=== PATIENT | female | born 1965 | race Hispanic/Latino ===

== ENCOUNTER 2020-03-05 09:25 | Inpatient (IN) | payer MEDICARE ==
[2020-03-05] MEDS ORDERED: SODIUM CHLORIDE 0.9% 1000 ML IV SOLN IV ONE ×2 (10:32→17:02)
[2020-03-05] MEDS ORDERED: NORepinephrine/NS 4 MG-250 ML 4 MG/250 ML BAG IV ONE (10:52)
[2020-03-05] MEDS ORDERED: ETOMIDATE 20 MG/10 ML INJ IV ONE ×2 (10:58→11:23)
[2020-03-05] MEDS ORDERED: ROCURONIUM 50 MG/5 ML INJ IV ONE (10:58)
[2020-03-05] MEDS ORDERED: SUCCINYLCHOLINE CHLORIDE 200 MG/10 ML INJ MDV IV ONE (11:23)
[2020-03-05 11:32] LABS: Mean Corpuscular HGB Conc 29 % (30-34); Mean Corpuscular Volume 103 fl (79-97); Platelet Count 388 K/mm3 (140-440); Red Blood Count 2.48 M/mm3 (3.65-5.03); Red Cell Distribution Width 18.8 % (13.2-15.2)
[2020-03-05 11:43] LABS: Hematocrit 25.4 % (30.3-42.9); Hemoglobin 7.4 gm/dl (10.1-14.3)
--- NOTE | 2020-03-05 11:49 | XRay Report ---
CHEST 1 VIEW INDICATION / CLINICAL INFORMATION: cough, covid positive. COMPARISON: 02/26/2020 FINDINGS: SUPPORT DEVICES: Tip of endotracheal tube is positioned approximately 3 cm above the machelle. Central venous line is been removed. HEART / MEDIASTINUM: No significant abnormality. LUNGS / PLEURA: There has been near complete resolution of bilateral pulmonary opacities since the pr ior study.. No pneumothorax. ADDITIONAL FINDINGS: No significant additional findings. IMPRESSION: 1. Near complete resolution of bilateral pulmonary opacities in the interval. Signer Name: Shaun Najera MD Signed: 03/05/2020 11:45 AM Workstation Name: [id number]
[2020-03-05 11:54] LABS: Alanine Aminotransferase 17 units/L (7-56); Albumin 1.8 g/dL (3.9-5); BUN/Creatinine Ratio 20; Blood Urea Nitrogen 32 mg/dL (7-17); C-Reactive Protein 2.8 mg/dL (0.00-1.30); Calcium 7.1 mg/dL (8.4-10.2); Hemolysis Index 4
[2020-03-05] MEDS: AZITHROMYCIN 500 MG in SODIUM CHLORIDE 0.9% 250ML 250 ML IV SCH (11:54)
[2020-03-05] MEDS ORDERED: SODIUM CHLORIDE 0.9% 1000 ML 1,000 ML IV ONE (12:09)
--- NOTE | 2020-03-05 12:17 | History and Physical Report ---
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 Pt is nonverbal and unable to provide history. Patient history taken from EMS staff, ED staff, and assisted facility staff. As per staff the patient was found to be ill-appearing this morning, and was breathing fast. EMS was notified and upon arrival the patient was found to be in distress and subsequently transported to [facility] for further care and evaluation of the aforementioned symptoms. Patient seen and evaluated in the emergency department. Lab and imaging studies reviewed. Patient found to have sepsis complicated by septic shock, acute hypoxemic respiratory failure, metabolic acidosis, metabolic encephalopathy, acute kidney injury, and hyponatremia. Patient initiated on sepsis protocol and admitted to ICU due to increased risk for decompensation. Critical care team consult placed in the emergency department. No further history is obtainable. Prior admission on 02/26/2020 reviewed. All medication listed at time of admission has been reconciled. Advanced care planning conducted in the emergency department. Past History Past Medical History: diabetes, hypertension, hyperlipidemia, other (See HPI) Past Surgical History: No surgical history, Other (Reviewed) Social history: single. denies: smoking, alcohol abuse, prescription drug abuse Family history: hypertension Medications and Allergies Allergies Allergy/AdvReac Type Severity Reaction Status Date / Time No Known Allergies Allergy Verified 02/26/20 10:24 Home Medications Medication Instructions Recorded Confirmed Last Taken Type Citalopram [Celexa] 20 mg PO QDAY 01/25/20 02/27/20 Unknown History Pravastatin [Pravachol] 40 mg PO QHS 01/25/20 02/27/20 Unknown History Acetaminophen [Mapap] 650 mg PO BID PRN 02/26/20 02/27/20 Unknown History Ascorbic Acid [Vitamin C with Chetna 500 mg PO DAILY 02/26/20 02/27/20 Unknown History Hips] Glimepiride [Amaryl] 4 mg PO QAM 02/26/20 02/27/20 Unknown History Insulin Lispro [Humalog] 5 units SQ AC 02/26/20 02/27/20 Unknown History Multivit-Min/Ferrous Fumarate 15 mg PO DAILY 02/26/20 02/27/20 Unknown History [Multivitamin with Minerals Tab] Apixaban [Eliquis] 2.5 mg PO BID #30 tablet 03/01/20 Unknown Rx Insulin Glargine [Lantus VIAL] 15 units SUB-Q BID #100 units 03/01/20 Unknown Rx levoFLOXacin [Levaquin TAB] 500 mg PO QDAY #3 tablet 03/01/20 Unknown Rx Active Meds: Active Medications Dextrose (D50w (25gm) Syringe) 0 ml IV Q30MIN PRN; Protocol PRN Reason: Hypoglycemia Ceftriaxone Sodium (Rocephin/Ns 2 Gm/100 Ml) 2 gm in 100 mls @ 200 mls/hr IV Q24HR SHAHLA; Protocol Azithromycin 500 mg/ Sodium (Chloride) 250 mls @ 250 mls/hr IV Q24HR SHAHLA; Protocol Last Admin: 03/05/20 11:54 Dose: 250 mls/hr Documented by: Norepinephrine (Levophed Drip 4 Mg/Ns 250 Ml) 4 mg in 250 mls @ 7.5 mls/hr IV TITR SHAHLA; Protocol Insulin Human Regular 100 (units/ Sodium Chloride) 100 mls @ 1 mls/hr IV TITR SHAHLA; Protocol Sodium Chloride (Nacl 0.9% 1000 Ml) 1,000 mls @ 999 mls/hr IV BOLUS ONE Stop: 03/05/20 13:09 Review of Systems ROS unobtainable: due to endotracheal tube, due to mental status Exam - Constitutional Vitals: Temp Pulse Resp BP Pulse Ox 97.7 F 106 H 19 56/28 100 03/05/20 09:35 03/05/20 11:51 03/05/20 11:51 03/05/20 11:51 03/05/20 11:51 General appearance: Present: severe distress - EENT Eyes: Present: miosis ENT: hearing decreased - Neck Neck: Present: supple, normal ROM - Respiratory Respiratory effort: labored Respiratory: bilateral: diminished - Cardiovascular Heart Sounds: Present: S1 & S2. Absent: rub, click - Extremities Extremities: pulses symmetrical, No edema Peripheral Pulses: abnormal (Capillary refill greater than 3.5 seconds) - Abdominal General gastrointestinal: Present: soft, non-tender, non-distended, normal bowel sounds Female genitourinary: Present: normal - Integumentary Integumentary: Present: clear, dry, clammy, decreased turgor - Musculoskeletal Musculoskeletal: generalized weakness - Psychiatric Psychiatric: no appropriate mood/affect, no intact judgment & insight, no memory intact - Neurologic Neurologic: no CNII-XII intact, no gait normal Results - Labs CBC & Chem 7: 03/05/20 11:20 03/05/20 15:43 Labs: Abnormal lab results 03/05/20 03/05/20 03/05/20 Range/Units 11:20 11:20 11:20 WBC 19.4 H (4.5-11.0) K/mm3 RBC 2.48 L (3.65-5.03) M/mm3 Hgb 7.4 L (10.1-14.3) gm/dl Hct 25.4 L (30.3-42.9) % MCV 103 H (79-97) fl MCHC 29 L (30-34) % RDW 18.8 H (13.2-15.2) % D-Dimer (0-234) ng/mlDDU Sodium 133 L D (137-145) mmol/L Chloride 91.0 L (98-107) mmol/L Carbon Dioxide 3 L* D (22-30) mmol/L BUN 32 H (7-17) mg/dL Creatinine 1.6 H D (0.6-1.2) mg/dL Glucose 1011 H* (65-100) mg/dL Lactic Acid 7.60 H* (0.7-2.0) mmol/L Calcium 7.1 L (8.4-10.2) mg/dL Ferritin (10.0-200.0) ng/mL Alkaline Phosphatase 142 H (35-129) units/L Lactate Dehydrogenase (91-180) units/L C-Reactive Protein (0.00-1.30) mg/dL Total Protein 4.1 L (6.3-8.2) g/dL Albumin 1.8 L (3.9-5) g/dL 03/05/20 03/05/20 03/05/20 Range/Units :07 06: 11:20 WBC (4.5-11.0) K/mm3 RBC (3.65-5.03) M/mm3 Hgb (10.1-14.3) gm/dl Hct (30.3-42.9) % MCV (79-97) fl MCHC (30-34) % RDW (13.2-15.2) % D-Dimer 1015.54 H (0-234) ng/mlDDU Sodium (137-145) mmol/L Chloride (98-107) mmol/L Carbon Dioxide (22-30) mmol/L BUN (7-17) mg/dL Creatinine (0.6-1.2) mg/dL Glucose 1013 H* (65-100) mg/dL Lactic Acid (0.7-2.0) mmol/L Calcium (8.4-10.2) mg/dL Ferritin 1335.0 H (10.0-200.0) ng/mL Alkaline Phosphatase (35-129) units/L Lactate Dehydrogenase 351 H (91-180) units/L C-Reactive Protein 2.80 H (0.00-1.30) mg/dL Total Protein (6.3-8.2) g/dL Albumin (3.9-5) g/dL Assessment and Plan - Patient Problems (1) Sepsis Current Visit: Yes Status: Acute Qualifiers: Sepsis type: sepsis due to unspecified organism Sepsis acute organ dysfunction status: with acute organ dysfunction Severe sepsis acute organ dysfunction type: acute renal failure Acute renal failure type: unspecified Severe sepsis shock status: with septic shock Qualified Code(s): A41.9 - Sepsis, unspecified organism; R65.21 - Severe sepsis with septic shock; N17.9 - Acute kidney failure, unspecified Plan to address problem: Sepsis protocol: CBC, CMP, chest x-ray, urinalysis, IV antibiotic therapy, IV fluid resuscitation therapy, IV pressor support, monitor urine output every shift, maintain mean arterial blood pressure greater than or equal to 65, serial lactic acid level, blood culture. The high probability of a clinically significant, sudden or life threatening deterioration of the [neuro, respiratory, renal, pulmonary] system(s) required my full and direct attention, intervention and personal management. The aggregate critical care time was [65] minutes. This time is in addition to time spent performing reported procedures but includes the following: [x] Data Review and interpretation [x] Patient assessment and monitoring of vital signs [x] Documentation [x] Medication orders and management (2) Acute hypoxemic respiratory failure Current Visit: Yes Status: Acute Plan to address problem: Patient intubated and on ventilatory support. Critical care team consulted, wean vent as tolerated, daily spontaneous breathing trial, sedation holiday, ABG as per protocol. (3) Acute kidney injury (RACH) with acute tubular necrosis (ATN) Current Visit: Yes Status: Acute Plan to address problem: BMP, IV fluid resuscitation therapy, repeat BMP in a.m., monitor serum creatinine. Monitor urine output every shift, avoid nephrotoxic agents. (4) Hyponatremia syndrome Current Visit: Yes Status: Acute Plan to address problem: IV fluid resuscitation therapy, BMP, repeat BMP in a.m. To monitor serum sodium. (5) Metabolic encephalopathy Current Visit: Yes Status: Acute Plan to address problem: Supportive care, neuro check, aspiration precautions, treat sepsis. (6) Metabolic acidosis Current Visit: No Status: Acute Plan to address problem: IV fluid resuscitation therapy, IV bicarbonate therapy, serial lactic acid level. (7) DVT prophylaxis Current Visit: Yes Status: Acute Plan to address problem: SCD to bilateral lower extremities while in bed, prophylactic heparin (8) Advance care planning Current Visit: No Status: Acute Plan to address problem: Patient is full code, patient prognosis discussed. +30 minutes.
--- NOTE | 2020-03-05 12:24 | Emergency Department Report ---
ED General Adult HPI - General Chief complaint: Dyspnea/Respdistress Stated complaint: HYPERGLYCEMIA PUI?: Yes Time Seen by Provider: 03/05/20 10:32 Source: EMS Mode of arrival: Stretcher Limitations: Altered Mental Status, Physical Limitation - History of Present Illness Initial comments: Patient is a 54-year-old female with a past medical history of diabetes and recent diagnosis of COVID-19 and aspiration pneumonia with sepsis who is presenting from [facility] unresponsive with agonal breathing. Details of when the patient became altered is unknown at this time. Patient released from our hospital 4 days ago. Patient had improvement of her DKA and was on antibiotics. No further history is known at this time. - Related Data Home Medications Medication Instructions Recorded Confirmed Last Taken Citalopram [Celexa] 20 mg PO QDAY 01/25/20 02/27/20 Unknown Pravastatin [Pravachol] 40 mg PO QHS 01/25/20 02/27/20 Unknown Acetaminophen [Mapap] 650 mg PO BID PRN 02/26/20 02/27/20 Unknown Ascorbic Acid [Vitamin C with Chetna 500 mg PO DAILY 02/26/20 02/27/20 Unknown Hips] Glimepiride [Amaryl] 4 mg PO QAM 02/26/20 02/27/20 Unknown Insulin Lispro [Humalog] 5 units SQ AC 02/26/20 02/27/20 Unknown Multivit-Min/Ferrous Fumarate 15 mg PO DAILY 02/26/20 02/27/20 Unknown [Multivitamin with Minerals Tab] Previous Rx's Medication Instructions Recorded Last Taken Type Apixaban [Eliquis] 2.5 mg PO BID #30 tablet 03/01/20 Unknown Rx Insulin Glargine [Lantus VIAL] 15 units SUB-Q BID #100 units 03/01/20 Unknown Rx levoFLOXacin [Levaquin TAB] 500 mg PO QDAY #3 tablet 03/01/20 Unknown Rx Allergies Allergy/AdvReac Type Severity Reaction Status Date / Time No Known Allergies Allergy Verified 02/26/20 10:24 ED Review of Systems ROS: Stated complaint: HYPERGLYCEMIA Other details as noted in HPI Comment: All other systems reviewed and negative ED Past Medical Hx - Past Medical History Previous Medical History?: Yes Hx Diabetes: Yes Hx Psychiatric Treatment: (anxiety) Hx Dementia: Yes Additional medical history: COVID +, history of Falling - Social History Smoking Status: Unknown if ever smoked - Medications Home Medications: Home Medications Medication Instructions Recorded Confirmed Last Taken Type Citalopram [Celexa] 20 mg PO QDAY 01/25/20 02/27/20 Unknown History Pravastatin [Pravachol] 40 mg PO QHS 01/25/20 02/27/20 Unknown History Acetaminophen [Mapap] 650 mg PO BID PRN 02/26/20 02/27/20 Unknown History Ascorbic Acid [Vitamin C with Chetna 500 mg PO DAILY 02/26/20 02/27/20 Unknown History Hips] Glimepiride [Amaryl] 4 mg PO QAM 02/26/20 02/27/20 Unknown History Insulin Lispro [Humalog] 5 units SQ AC 02/26/20 02/27/20 Unknown History Multivit-Min/Ferrous Fumarate 15 mg PO DAILY 02/26/20 02/27/20 Unknown History [Multivitamin with Minerals Tab] Apixaban [Eliquis] 2.5 mg PO BID #30 tablet 03/01/20 Unknown Rx Insulin Glargine [Lantus VIAL] 15 units SUB-Q BID #100 units 03/01/20 Unknown Rx levoFLOXacin [Levaquin TAB] 500 mg PO QDAY #3 tablet 03/01/20 Unknown Rx ED Physical Exam - General Limitations: Altered Mental Status, Physical Limitation General appearance: lethargic, other (Patient with agonal breathing with no gag reflex. Patient unresponsive to painful stimuli.) - Head Head exam: Present: atraumatic - Eye Eye exam: Present: other (dry cornea) - ENT ENT exam: Present: mucous membranes dry - Neck Neck exam: Present: normal inspection - Respiratory Respiratory exam: Present: normal lung sounds bilaterally, respiratory distress (agonal but clear breath sounds), accessory muscle use. Absent: wheezes, rales, rhonchi - Cardiovascular Cardiovascular Exam: Present: tachycardia - GI/Abdominal GI/Abdominal exam: Present: soft, distended. Absent: tenderness, guarding, rebound - Neurological Exam Neurological exam: Present: altered ED Course Vital Signs 03/05/20 03/05/20 03/05/20 09:32 09:35 09:46 Temperature 97.7 F Pulse Rate 118 H 118 H 118 H Respiratory 22 25 H 24 Rate Blood Pressure 79/33 O2 Sat by Pulse 100 100 99 Oximetry 0803/05/20 03/05/20 10:00 10:15 10:30 Temperature Pulse Rate 116 H 114 H 114 H Respiratory 23 23 20 Rate Blood Pressure 65/32 69/39 69/39 O2 Sat by Pulse 99 100 Oximetry 03/05/20 03/05/20 11:47 11:51 Temperature Pulse Rate 106 H Respiratory 24 19 Rate Blood Pressure 56/28 O2 Sat by Pulse 100 Oximetry - Intubation Time Out Performed: No Sedative: Etomidate Mg Given: 10 Paralytic: Succinylcholine Mg Given: 100 Laryngoscope: fiberoptic video scope Size: 3 Tube Secured Depth (cm): 22 Tube Secured Location: lips Tube Placement Confirmation: visualized tube passing t, equal breath sounds bilat, no breath sounds over epi, confirmation by capnometr Patient Tolerated Procedure: well Intubation Complications: none - IO Right Tibia Consent Obtained: emergent situation Time Out Performed: Yes IO Instrument Used to Penetrate the Cortex: battery powered IO drill Patient Tolerated Procedure: no complications Complications: none Left Tibia Consent Obtained: emergent situation Time Out Performed: Yes IO Instrument Used to Penetrate the Cortex: battery powered IO drill Patient Tolerated Procedure: well Complications: none ED Medical Decision Making - Lab Data Result diagrams: 03/05/20 11:20 03/05/20 11:20 Lab Results 03/05/20 03/05/20 03/05/20 Range/Units 11:20 11:20 11:20 WBC 19.4 H (4.5-11.0) K/mm3 RBC 2.48 L (3.65-5.03) M/mm3 Hgb 7.4 L (10.1-14.3) gm/dl Hct 25.4 L (30.3-42.9) % MCV 103 H (79-97) fl MCH 30 (28-32) pg MCHC 29 L (30-34) % RDW 18.8 H (13.2-15.2) % Plt Count 388 (140-440) K/mm3 D-Dimer (0-234) ng/mlDDU Sodium 133 L D (137-145) mmol/L Potassium 4.4 D (3.6-5.0) mmol/L Chloride 91.0 L (98-107) mmol/L Carbon Dioxide 3 L* D (22-30) mmol/L Anion Gap 43 mmol/L BUN 32 H (7-17) mg/dL Creatinine 1.6 H D (0.6-1.2) mg/dL Estimated GFR 34 ml/min BUN/Creatinine Ratio 20 % Glucose 1011 H* (65-100) mg/dL Lactic Acid 7.60 H* (0.7-2.0) mmol/L Calcium 7.1 L (8.4-10.2) mg/dL Ferritin (10.0-200.0) ng/mL Total Bilirubin < 0.20 (0.1-1.2) mg/dL AST 18 (5-40) units/L ALT 17 (7-56) units/L Alkaline Phosphatase 142 H (35-129) units/L Lactate Dehydrogenase (91-180) units/L C-Reactive Protein (0.00-1.30) mg/dL Total Protein 4.1 L (6.3-8.2) g/dL Albumin 1.8 L (3.9-5) g/dL Albumin/Globulin Ratio 0.8 % 03/05/20 03/05/20 03/05/20 Range/Units 11:20 11:20 11:20 WBC (4.5-11.0) K/mm3 RBC (3.65-5.03) M/mm3 Hgb (10.1-14.3) gm/dl Hct (30.3-42.9) % MCV (79-97) fl MCH (28-32) pg MCHC (30-34) % RDW (13.2-15.2) % Plt Count (140-440) K/mm3 D-Dimer 1015.54 H (0-234) ng/mlDDU Sodium (137-145) mmol/L Potassium (3.6-5.0) mmol/L Chloride (98-107) mmol/L Carbon Dioxide (22-30) mmol/L Anion Gap mmol/L BUN (7-17) mg/dL Creatinine (0.6-1.2) mg/dL Estimated GFR ml/min BUN/Creatinine Ratio % Glucose 1013 H* (65-100) mg/dL Lactic Acid (0.7-2.0) mmol/L Calcium (8.4-10.2) mg/dL Ferritin 1335.0 H (10.0-200.0) ng/mL Total Bilirubin (0.1-1.2) mg/dL AST (5-40) units/L ALT (7-56) units/L Alkaline Phosphatase (35-129) units/L Lactate Dehydrogenase 351 H (91-180) units/L C-Reactive Protein 2.80 H (0.00-1.30) mg/dL Total Protein (6.3-8.2) g/dL Albumin (3.9-5) g/dL Albumin/Globulin Ratio % - Radiology Data Ordering Physician: DELPHINE AHMADI MD Date of Service: 03/05/20 Procedure(s): XR chest 1V ap Accession Number(s): [id number] cc: DELPHINE AHMADI MD Fluoro Time In Minutes: CHEST 1 VIEW INDICATION / CLINICAL INFORMATION: cough, covid positive. COMPARISON: 02/26/2020 FINDINGS: SUPPORT DEVICES: Tip of endotracheal tube is positioned approximately 3 cm above the machelle. Central venous line is been removed. HEART / MEDIASTINUM: No significant abnormality. LUNGS / PLEURA: There has been near complete resolution of bilateral pulmonary opacities since the prior study.. No pneumothorax. ADDITIONAL FINDINGS: No significant additional findings. IMPRESSION: 1. Near complete resolution of bilateral pulmonary opacities in the interval. Signer Name: Shaun Najera MD Signed: 03/05/2020 11:45 AM Workstation Name: [email or web address] - Medical Decision Making Patient is a 54-year-old female with who is presenting in some respiratory distress with agonal breathing. Blood pressure was 50 systolic on her arrival. Upon being notified that the patient was in her room after 1hour was able to see the patient start IV fluids and initiate a sepsis protocol. Was unable to start an IJ secondary to the patient being dehydrated and having fl attening of her vein. Because of the severe hypotension decided to place bilateral IO's in her tibia so that IV fluids could be instilled in 1 and Levophed and the other. Blood pressure starting to improve. Patient was intubated by me please see procedure note. Patient intubated to protect her a irway as she had no gag reflex. Patient to be started on insulin drip and DKA protocol was initiated. Patient given Rocephin and azithromycin. Sepsis protocol patient was given IV fluid hydration. Patient be admitted to the ICU by her hospitalist. Critical Care Time: Yes (30) Critical care attestation.: If time is entered above; I have spent that time in minutes in the direct care of this critically ill patient, excluding procedure time. ED Disposition Clinical Impression: Metabolic encephalopathy, Leukocytosis DKA (diabetic ketoacidoses) Qualifiers: Diabetes mellitus type: type 1 Diabetes mellitus complication detail: with coma Qualified Code(s): E10.11 - Type 1 diabetes mellitus with ketoacidosis with coma Sepsis Qualifiers: Sepsis type: sepsis due to unspecified organism Sepsis acute organ dysfunction status: with acute organ dysfunction Severe sepsis acute organ dysfunction type: acute renal failure Acute renal failure type: unspecified Severe sepsis shock status: with septic shock Qualified Code(s): A41.9 - Sepsis, unspecified organism; R65.21 - Severe sepsis with septic shock; N17.9 - Acute kidney fa ilure, unspecified Disposition: 09 OP ADMIT IP TO THIS HOSP Is pt being admited?: Yes Does the pt Need Aspirin: No Condition: Stable Instructions: Diabetic Ketoacidosis (ED) Time of Disposition: 12:33
[2020-03-05] MEDS: NORepinephrine/NS 4 MG-250 ML 4 MG/250 ML BAG IV SCH ×5 (12:50→22:59)
[2020-03-05 12:53] LABS: Anisocytosis 1+; Basophils % (Manual) 0 % (0.0-1.8); Eosinophils % (Manual) 0 % (0.0-4.3); Macrocytosis Few; Platelet Estimate Consistent w Auto; Total Cells Counted 100
[2020-03-05] MEDS: INSULIN REGULAR, HUMAN 100 UNITS in SODIUM CHLORIDE 0.9% 99 ML IV SCH (13:16)
[2020-03-05 13:33] LABS: ABG PCO2 12.8 mm Hg; ABG PH 7.039 pH Units (7.350-7.450)
[2020-03-05 13:34] LABS: ABG Base Excess -25.2 mmol/L (-2.0-3.0); ABG HCO3 3.4 mmol/L (20.0-26.0); ABG PO2 330.9 mm Hg (80.0-90.0)
--- NOTE | 2020-03-05 13:53 | Consultation ---
History of Present Illness Consult date: 03/05/20 Requesting physician: GUILHERME JONES Reason for consult: other (Acute Hypoxemic Respiratory Failure; Severe Sepsis with Shock) History of present illness: PCCM CONSULT NOTE (Full dictation # ) Please see dictated notes for full details Medications and Allergies Allergies Allergy/AdvReac Type Severity Reaction Status Date / Time No Known Allergies Allergy Verified 02/26/20 10:24 Home Medications Medication Instructions Recorded Confirmed Last Taken Type Citalopram [Celexa] 20 mg PO QDAY 01/25/20 02/27/20 Unknown History Pravastatin [Pravachol] 40 mg PO QHS 01/25/20 02/27/20 Unknown History Acetaminophen [Mapap] 650 mg PO BID PRN 02/26/20 02/27/20 Unknown History Ascorbic Acid [Vitamin C with Chetna 500 mg PO DAILY 02/26/20 02/27/20 Unknown History Hips] Glimepiride [Amaryl] 4 mg PO QAM 02/26/20 02/27/20 Unknown History Insulin Lispro [Humalog] 5 units SQ AC 02/26/20 02/27/20 Unknown History Multivit-Min/Ferrous Fumarate 15 mg PO DAILY 02/26/20 02/27/20 Unknown History [Multivitamin with Minerals Tab] Apixaban [Eliquis] 2.5 mg PO BID #30 tablet 03/01/20 Unknown Rx Insulin Glargine [Lantus VIAL] 15 units SUB-Q BID #100 units 03/01/20 Unknown Rx levoFLOXacin [Levaquin TAB] 500 mg PO QDAY #3 tablet 03/01/20 Unknown Rx Active Meds: Active Medications Dextrose (D50w (25gm) Syringe) 0 ml IV Q30MIN PRN; Protocol PRN Reason: Hypoglycemia Ceftriaxone Sodium (Rocephin/Ns 2 Gm/100 Ml) 2 gm in 100 mls @ 200 mls/hr IV Q24HR SHAHLA; Protocol Azithromycin 500 mg/ Sodium (Chloride) 250 mls @ 250 mls/hr IV Q24HR SHAHLA; Protocol Last Infusion: 03/05/20 13:26 Dose: Infused Documented by: Norepinephrine (Levophed Drip 4 Mg/Ns 250 Ml) 4 mg in 250 mls @ 7.5 mls/hr IV TITR SHAHLA; Protocol Last Titration: 03/05/20 13:40 Dose: 10 mcg/min, 37.5 mls/hr Documented by: Insulin Human Regular 100 (units/ Sodium Chloride) 100 mls @ 1 mls/hr IV TITR SHAHLA; Protocol Last Admin: 03/05/20 13:16 Dose: 8 units/hr, 8 mls/hr Documented by: Sodium Chloride (Sodium Chloride Flush Syringe 10 Ml) 10 ml IV BID SHAHLA Sodium Chloride (Sodium Chloride Flush Syringe 10 Ml) 10 ml IV PRN PRN PRN Reason: LINE FLUSH Physical Examination Vital signs: Vital Signs Pulse Resp Pulse Ox 118 H 22 100 03/05/20 09:32 03/05/20 09:32 03/05/20 09:32 Results - Laboratory Findings CBC and BMP: 03/05/20 11:20 03/05/20 11:20 ABG ABG pH 7.039 pH Units (7.350-7.450) L* 03/05/20 11:20 ABG pCO2 12.8 mm Hg 03/05/20 11:20 ABG pO2 330.9 mm Hg (80.0-90.0) H 03/05/20 11:20 PT/INR, D-dimer D-Dimer 1015.54 ng/mlDDU (0-234) H 03/05/20 11:20 Abnormal lab findings: Abnormal Labs 03/05/20 03/05/20 03/05/20 11:20 11:20 11:20 WBC 19.4 H RBC 2.48 L Hgb 7.4 L Hct 25.4 L MCV 103 H MCHC 29 L RDW 18.8 H Seg Neuts % (Manual) 95.0 H Lymphocytes % (Manual) 2.0 L Seg Neutrophils # Man 18.4 H Lymphocytes # (Manual) 0.4 L D-Dimer ABG pH ABG pO2 ABG HCO3 ABG Base Excess ABG Hemoglobin Sodium 133 L D Chloride 91.0 L Carbon Dioxide 3 L* D BUN 32 H Creatinine 1.6 H D Glucose 1011 H* Lactic Acid 7.60 H* Calcium 7.1 L Ferritin Alkaline Phosphatase 142 H Lactate Dehydrogenase C-Reactive Protein Total Protein 4.1 L Albumin 1.8 L 03/05/20 03/05/20 03/05/20 11:20 11:20 11:20 WBC RBC Hgb Hct MCV MCHC RDW Seg Neuts % (Manual) Lymphocytes % (Manual) Seg Neutrophils # Man Lymphocytes # (Manual) D-Dimer 1015.54 H ABG pH ABG pO2 ABG HCO3 ABG Base Excess ABG Hemoglobin Sodium Chloride Carbon Dioxide BUN Creatinine Glucose 1013 H* Lactic Acid Calcium Ferritin 1335.0 H Alkaline Phosphatase Lactate Dehydrogenase 351 H C-Reactive Protein 2.80 H Total Protein Albumin 03/05/20 11:20 WBC RBC Hgb Hct MCV MCHC RDW Seg Neuts % (Manual) Lymphocytes % (Manual) Seg Neutrophils # Man Lymphocytes # (Manual) D-Dimer ABG pH 7.039 L* ABG pO2 330.9 H ABG HCO3 3.4 L ABG Base Excess -25.2 L ABG Hemoglobin 9.0 L Sodium Chloride Carbon Dioxide BUN Creatinine Glucose Lactic Acid Calcium Ferritin Alkaline Phosphatase Lactate Dehydrogenase C-Reactive Protein Total Protein Albumin
[2020-03-05] MEDS ORDERED: cefTRIAXone/NS 2 GM/100 ML 2 GM/100 ML BAG IV ONE (13:58)
[2020-03-05] MEDS ORDERED: SODIUM CHLORIDE 0.9% 1000 ML 2,000 ML ONE (14:07)
[2020-03-05] MEDS: cefTRIAXone/NS 2 GM/100 ML 2 GM/100 ML BAG IV SCH (14:44)
--- NOTE | 2020-03-05 15:07 | XRay Report ---
CHEST 1 VIEW INDICATION / CLINICAL INFORMATION: Dyspnea FINDINGS: SUPPORT DEVICES: The endotracheal tube terminates about 4 cm above the machelle. The right IJ central v enous line terminates at the mid SVC level.. HEART / MEDIASTINUM: No significant abnormality. LUNGS / PLEURA: No significant pulmonary or pleural abnormality. No pneumothorax. ADDITIONAL FINDINGS: No significant additional findings. Impression: No pneumothorax or acute abnormality. Signer Name: Jaylen Burrell MD Signed: 03/05/2020 3:02 PM Workstation Name: [id number]
--- NOTE | 2020-03-05 16:02 | Procedure Note ---
Date of procedure: 03/05/20 Pre-op diagnosis: Sepsis Post-op diagnosis: same Procedure: Right internal jugular vein triple venous catheter under ultrasound guidance The patient was prepped and draped in the usual sterile fashion. A timeout was taken to verify the correct patient, procedure, and operative site. Ultrasound was used to localize the right internal jugular vein without difficulty. The Seldinger technique was utilized to access the right internal jugular vein under ultrasound guidance. Local anesthesia was obtained with lidocaine 1%. Under ultrasound, a seeker needle was utilized to access the right internal jugular vein. A guidewire was then advanced through the seeker needle into the right internal jugular vein and the seeker needle was then removed from over the guidewire. A scalpel was used to incise the skin. A dilator was then passed over the guidewire into the right internal jugular vein and then removed. A pre-flushed triple-lumen catheter was then advanced over the guidewire into the right internal jugular vein. A Biopatch was placed at the insertion site. The triple lumen catheter was then sewn in place. A postoperative chest x-ray revealed right central venous catheter in good position in the SVC. Chest x-ray did not reveal pneumothorax. Complications none. Blood loss minimal. Anesthesia: local Surgeon: GUILHERME JONES Estimated blood loss: minimal Pathology: none Disposition: ICU
[2020-03-05] MEDS ORDERED: SODIUM BICARB 8.4% 50 MEQ/50 ML SYRINGE IV ONE ×2 (16:08→17:00)
[2020-03-05 16:15] LABS: Calcium 7.2 mg/dL (8.4-10.2)
[2020-03-05 16:32] LABS: ABG Base Excess -25.3 mmol/L (-2.0-3.0); ABG HCO3 4.1 mmol/L (20.0-26.0); ABG Methemoglobin 0.6 % (0.0-1.5); ABG Oxygen Saturation 76.5 % (95.0-99.0); ABG PCO2 18.8 mm Hg; ABG PO2 62.5 mm Hg (80.0-90.0)
[2020-03-05 16:40] LABS: ABG PH 6.96 pH Units (7.350-7.450)
[2020-03-05] MEDS ORDERED: SODIUM CHLORIDE 0.9% 1000 ML 1,000 ML IV SCH (17:15)
[2020-03-05] MEDS: SODIUM CHLORIDE 0.9% 1000 ML 1,000 ML IV SCH ×2 (19:01→20:05)
--- NOTE | 2020-03-05 19:31 | XRay Report ---
ABDOMEN 1 VIEW INDICATION / CLINICAL INFORMATION: NG placement. COMPARISON: None available. FINDINGS: TUBES / LINES: NG tube noted with its tip and sidehole curled within the left upper quadrant abdomen. BOWEL GAS PATTERN: No significant abnormality. FREE AIR / EXTRALUMINAL GAS: None seen. ADDITIONAL FINDINGS: No significant additional findings. IMPRESSION: 1. Appropriately placed NG tube. Signer Name: Griffin Prado MD Signed: 03/05/2020 7:27 PM Workstation Name: [id number]
[2020-03-05 20:19] LABS: Calcium 6.4 mg/dL (8.4-10.2)
[2020-03-05] MEDS ORDERED: POTASSIUM CHLORIDE 10 MEQ 10 MEQ/100 ML BAG IV ONE (21:53)
[2020-03-05] MEDS ORDERED: NACL 0.9%/KCL 40 MEQ 40 MEQ/1,000 ML BAG IV SCH (22:00)
[2020-03-05] MEDS ORDERED: POTASSIUM CHLORIDE 20 MEQ 20 MEQ/100 ML BAG IV SCH (22:00)
[2020-03-06] MEDS: INSULIN REGULAR, HUMAN 100 UNITS in SODIUM CHLORIDE 0.9% 99 ML IV SCH (01:34)
[2020-03-06] MEDS: D5W/0.45% NACL/KCL 20 MEQ 20 MEQ/1,000 ML BAG IV SCH ×3 (02:44→18:29)
[2020-03-06 03:51] LABS: Bacteria,Urine 1+ /HPF (Negative); Bilirubin,Urine NEG (Negative); Blood,Urine SM (Negative); Color,Urine Yellow (Yellow); Protein,Urine <15 mg/dL mg/dL (Negative); Urobilinogen,Urine < 2.0 mg/dL (<2.0)
[2020-03-06 03:54] LABS: RBC,Urine > 182.0 /HPF (0.0-6.0)
[2020-03-06] MEDS: NORepinephrine/NS 4 MG-250 ML 4 MG/250 ML BAG IV SCH ×2 (06:35→16:58)
[2020-03-06 08:31] LABS: Calcium 6.4 mg/dL (8.4-10.2)
[2020-03-06 08:50] LABS: ABG Base Excess -7.3 mmol/L (-2.0-3.0); ABG HCO3 15.3 mmol/L (20.0-26.0); ABG Methemoglobin 0.5 % (0.0-1.5); ABG Oxygen Saturation 99.6 % (95.0-99.0); ABG PCO2 21.5 mm Hg; ABG PH 7.47 pH Units (7.350-7.450)
[2020-03-06] MEDS: cefTRIAXone/NS 2 GM/100 ML 2 GM/100 ML BAG IV SCH (09:18)
[2020-03-06] MEDS: AZITHROMYCIN 500 MG in SODIUM CHLORIDE 0.9% 250ML 250 ML IV SCH (09:19)
--- NOTE | 2020-03-06 09:30 | Consultation ---
History of Present Illness Consult date: 03/06/20 Requesting physician: GUILHERME JONES Reason for consult: other History of present illness: 54 y/o female brittle diabetic admitted with severe metabolic acidosis and acute respiratory failure. Patient intubated in the ED. Patient was found to have a pH of 7 and bicarb of 2.0. She was given several amps of bicarb push but bicarb only came up to 6. This am pending. per Labs pH is better but O2 has not resulted. Patient was in the ICU 6 days ago with severe DKA, very similar presentation but not intubated. She is also covid positive. Past History Past Medical History: diabetes, hypertension, hyperlipidemia, other (See HPI) Past Surgical History: No surgical history, Other (Reviewed) Social history: single. denies: smoking, alcohol abuse, prescription drug abuse Family history: hypertension Medications and Allergies Allergies Allergy/AdvReac Type Severity Reaction Status Date / Time No Known Allergies Allergy Verified 02/26/20 10:24 Home Medications Medication Instructions Recorded Confirmed Last Taken Type Citalopram [Celexa] 20 mg PO QDAY 01/25/20 03/06/20 Unknown History Pravastatin [Pravachol] 40 mg PO QHS 01/25/20 03/06/20 Unknown History Acetaminophen [Mapap] 650 mg PO BID PRN 02/26/20 03/06/20 Unknown History Ascorbic Acid [Vitamin C with Chetna 500 mg PO DAILY 02/26/20 03/06/20 Unknown History Hips] Glimepiride [Amaryl] 4 mg PO QAM 02/26/20 03/06/20 Unknown History Insulin Lispro [Humalog] 5 units SQ AC 02/26/20 03/06/20 Unknown History Multivit-Min/Ferrous Fumarate 15 mg PO DAILY 02/26/20 03/06/20 Unknown History [Multivitamin with Minerals Tab] Apixaban [Eliquis] 2.5 mg PO BID #30 tablet 03/01/20 03/06/20 Unknown Rx Insulin Glargine [Lantus VIAL] 15 units SUB-Q BID #100 units 03/01/20 03/06/20 Unknown Rx levoFLOXacin [Levaquin TAB] 500 mg PO QDAY #3 tablet 03/01/20 03/06/20 Unknown Rx Active Meds: Active Medications Dextrose (D50w (25gm) Syringe) 0 ml IV Q30MIN PRN; Protocol PRN Reason: Hypoglycemia Famotidine (Pepcid) 20 mg IV DAILY SHAHLA Ceftriaxone Sodium (Rocephin/Ns 2 Gm/100 Ml) 2 gm in 100 mls @ 200 mls/hr IV Q24HR SHAHLA; Protocol Last Admin: 03/06/20 09:18 Dose: 200 mls/hr Documented by: Azithromycin 500 mg/ Sodium (Chloride) 250 mls @ 250 mls/hr IV Q24HR SHAHLA; Protocol Last Admin: 03/06/20 09:19 Dose: 250 mls/hr Documented by: Norepinephrine (Levophed Drip 4 Mg/Ns 250 Ml) 4 mg in 250 mls @ 7.5 mls/hr IV TITR SHAHLA; Protocol Last Titration: 03/06/20 07:58 Dose: 6 mcg/min, 22.5 mls/hr Documented by: Insulin Human Regular 100 (units/ Sodium Chloride) 100 mls @ 1 mls/hr IV TITR SHAHLA; Protocol Last Titration: 03/06/20 08:49 Dose: 1 units/hr, 1 mls/hr Documented by: Sodium Chloride (Nacl 0.9% 1000 Ml) 1,000 mls @ 0 mls/hr IV ONCE SHAHLA Stop: 03/06/20 14:22 Last Infusion: 03/05/20 21:10 Dose: Infused Documented by: Potassium Chloride/Dextrose/Sod Cl (D5w/0.45% Nacl/Kcl 20 Meq) 20 meq in 1,000 mls @ 125 mls/hr IV DIRECT SHAHLA Last Admin: 03/06/20 02:44 Dose: 125 mls/hr Documented by: Sodium Chloride (Sodium Chloride Flush Syringe 10 Ml) 10 ml IV BID SHAHLA Last Admin: 03/06/20 09:19 Dose: 10 ml Documented by: Sodium Chloride (Sodium Chloride Flush Syringe 10 Ml) 10 ml IV PRN PRN PRN Reason: LINE FLUSH Review of Systems ROS unobtainable: due to endotracheal tube, due to mental status Physical Examination Vital signs: Vital Signs Pulse Resp Pulse Ox 118 H 22 100 03/05/20 09:32 03/05/20 09:32 03/05/20 09:32 Results - Laboratory Findings CBC and BMP: 03/05/20 11:20 03/06/20 07:35 ABG ABG pH 7.470 pH Units (7.350-7.450) H 03/06/20 08:42 ABG pCO2 21.5 mm Hg 03/06/20 08:42 ABG O2 Saturation 99.6 % (95.0-99.0) H 03/06/20 08:42 PT/INR, D-dimer D-Dimer 1015.54 ng/mlDDU (0-234) H 03/05/20 11:20 Abnormal lab findings: Abnormal Labs 03/05/20 03/05/20 03/05/20 11:18 11:20 11:20 WBC 19.4 H RBC 2.48 L Hgb 7.4 L Hct 25.4 L MCV 103 H MCHC 29 L RDW 18.8 H Seg Neuts % (Manual) 95.0 H Lymphocytes % (Manual) 2.0 L Seg Neutrophils # Man 18.4 H Lymphocytes # (Manual) 0.4 L D-Dimer ABG pH ABG pO2 ABG HCO3 ABG O2 Saturation ABG Base Excess ABG Hemoglobin Oxyhemoglobin Sodium 133 L D Potassium Chloride 91.0 L Carbon Dioxide 3 L* D BUN 32 H Creatinine 1.6 H D Glucose 1011 H* POC Glucose Lactic Acid Calcium 7.1 L Phosphorus 6.90 H Ferritin Alkaline Phosphatase 142 H Lactate Dehydrogenase C-Reactive Protein Total Protein 4.1 L Albumin 1.8 L 03/05/20 03/05/20 03/05/20 11:20 11:20 11:20 WBC RBC Hgb Hct MCV MCHC RDW Seg Neuts % (Manual) Lymphocytes % (Manual) Seg Neutrophils # Man Lymphocytes # (Manual) D-Dimer 1015.54 H ABG pH ABG pO2 ABG HCO3 ABG O2 Saturation ABG Base Excess ABG Hemoglobin Oxyhemoglobin Sodium Potassium Chloride Carbon Dioxide BUN Creatinine Glucose 1013 H* POC Glucose Lactic Acid 7.60 H* Calcium Phosphorus Ferritin Alkaline Phosphatase Lactate Dehydrogenase 351 H C-Reactive Protein 2.80 H Total Protein Albumin 03/05/20 03/05/20 03/05/20 11:20 11:20 15:04 WBC RBC Hgb Hct MCV MCHC RDW Seg Neuts % (Manual) Lymphocytes % (Manual) Seg Neutrophils # Man Lymphocytes # (Manual) D-Dimer ABG pH 7.039 L* ABG pO2 330.9 H ABG HCO3 3.4 L ABG O2 Saturation ABG Base Excess -25.2 L ABG Hemoglobin 9.0 L Oxyhemoglobin Sodium Potassium Chloride Carbon Dioxide BUN Creatinine Glucose POC Glucose > 500 H Lactic Acid Calcium Phosphorus Ferritin 1335.0 H Alkaline Phosphatase Lactate Dehydrogenase C-Reactive Protein Total Protein Albumin 03/05/20 03/05/20 03/05/20 15:25 15:43 15:43 WBC RBC Hgb Hct MCV MCHC RDW Seg Neuts % (Manual) Lymphocytes % (Manual) Seg Neutrophils # Man Lymphocytes # (Manual) D-Dimer ABG pH 6.960 L* ABG pO2 62.5 L ABG HCO3 4.1 L ABG O2 Saturation 76.5 L ABG Base Excess -25.3 L ABG Hemoglobin 5.2 L Oxyhemoglobin 75.1 L Sodium 134 L Potassium Chloride 95.9 L Carbon Dioxide 3 L* BUN 30 H Creatinine 1.5 H Glucose 897 H* POC Glucose Lactic Acid 5.50 H* Calcium 7.2 L Phosphorus Ferritin Alkaline Phosphatase Lactate Dehydrogenase C-Reactive Protein Total Protein Albumin 03/05/20 03/05/20 03/06/20 19:48 20:30 00:12 WBC RBC Hgb Hct MCV MCHC RDW Seg Neuts % (Manual) Lymphocytes % (Manual) Seg Neutrophils # Man Lymphocytes # (Manual) D-Dimer ABG pH ABG pO2 ABG HCO3 ABG O2 Saturation ABG Base Excess ABG Hemoglobin Oxyhemoglobin Sodium Potassium 2.7 L* D Chloride Carbon Dioxide 6 L* BUN 30 H Creatinine 1.6 H Glucose 631 H* 577 H* POC Glucose 346 H Lactic Acid Calcium 6.4 L Phosphorus Ferritin Alkaline Phosphatase Lactate Dehydrogenase C-Reactive Protein Total Protein Albumin 03/06/20 03/06/20 03/06/20 01:44 02:09 03:39 WBC RBC Hgb Hct MCV MCHC RDW Seg Neuts % (Manual) Lymphocytes % (Manual) Seg Neutrophils # Man Lymphocytes # (Manual) D-Dimer ABG pH ABG pO2 ABG HCO3 ABG O2 Saturation ABG Base Excess ABG Hemoglobin Oxyhemoglobin Sodium Potassium Chloride Carbon Dioxide BUN Creatinine Glucose POC Glucose 263 H 220 H 178 H Lactic Acid Calcium Phosphorus Ferritin Alkaline Phosphatase Lactate Dehydrogenase C-Reactive Protein Total Protein Albumin 03/06/20 03/06/20 03/06/20 04:05 05:13 06:13 WBC RBC Hgb Hct MCV MCHC RDW Seg Neuts % (Manual) Lymphocytes % (Manual) Seg Neutrophils # Man Lymphocytes # (Manual) D-Dimer ABG pH ABG pO2 ABG HCO3 ABG O2 Saturation ABG Base Excess ABG Hemoglobin Oxyhemoglobin Sodium Potassium Chloride Carbon Dioxide BUN Creatinine Glucose POC Glucose 162 H 129 H 120 H Lactic Acid Calcium Phosphorus Ferritin Alkaline Phosphatase Lactate Dehydrogenase C-Reactive Protein Total Protein Albumin 03/06/20 03/06/20 03/06/20 06:44 07:35 07:52 WBC RBC Hgb Hct MCV MCHC RDW Seg Neuts % (Manual) Lymphocytes % (Manual) Seg Neutrophils # Man Lymphocytes # (Manual) D-Dimer ABG pH ABG pO2 ABG HCO3 ABG O2 Saturation ABG Base Excess ABG Hemoglobin Oxyhemoglobin Sodium Potassium Chloride 108.7 H Carbon Dioxide BUN 29 H Creatinine 1.7 H Glucose 122 H POC Glucose 142 H 131 H Lactic Acid Calcium 6.4 L Phosphorus Ferritin Alkaline Phosphatase Lactate Dehydrogenase C-Reactive Protein Total Protein Albumin 03/06/20 08:42 WBC RBC Hgb Hct MCV MCHC RDW Seg Neuts % (Manual) Lymphocytes % (Manual) Seg Neutrophils # Man Lymphocytes # (Manual) D-Dimer ABG pH 7.470 H ABG pO2 ABG HCO3 15.3 L ABG O2 Saturation 99.6 H ABG Base Excess -7.3 L ABG Hemoglobin 7.7 L Oxyhemoglobin Sodium Potassium Chloride Carbon Dioxide BUN Creatinine Glucose POC Glucose Lactic Acid Calcium Phosphorus Ferritin Alkaline Phosphatase Lactate Dehydrogenase C-Reactive Protein Total Protein Albumin - Diagnostic Findings Chest x-ray: image reviewed (CXR is clear, no evidence of acute lung disease. Right IJ in place) Assessment and Plan 54 y/o female with severe metabolic acidosis and acute respiratory failure 1. Follow up PaO2. Patient remains on 100% with an O2 sat of 100 on the monitor. Likely can wean and if mental status has improved will extubate 2. Severe metabolic acidosis with electrolyte imbalance. Patient given K r eplacement with saline but needs D5W if still acidotic. Will likely change to bicarb drip in D5W pending would bicarb is on chemistry. If elevated enough, then can just do 1/2 normal saline with K and hopefully can turn drip off 3. No endocrinology here, not sure if patient would be a candidate for an insulin pump but her sugars get our of control very quickly. 4. Renal failure is likely pre-renal, continue volume resuscitation 4. Long discussion with sister over the phone. Here in [place] are a Sister and a niece. She does have 3 brothers, one of whom is developmentally challenged. I have asked her to consider making MrsJordan Garcia an AND if she is not able to wake up and make the decision for herself. She is going to call the brothers and discuss with them to let us know. Overall prognosis is guarded to poor. CCT 31 minutes.
[2020-03-06] MEDS ORDERED: FAMOTIDINE 20 MG/2 ML INJ IV SCH (10:00)
[2020-03-06] MEDS: CEFEPIME/NS 2 GM/100 ML 2 GM/100 ML BAG IV SCH ×2 (10:23→21:46)
[2020-03-06] MEDS ORDERED: VANCOMYCIN 1,250 MG in SODIUM CHLORIDE 0.9% 250ML 250 ML IV ONE (11:00)
[2020-03-06] MEDS: POTASSIUM CHLORIDE 20 MEQ 20 MEQ/100 ML BAG IV SCH ×2 (11:44→12:48)
[2020-03-06] MEDS: ENOXAPARIN 60 MG/0.6 ML INJ SUB-Q SCH (11:45)
[2020-03-06 15:31] LABS: Calcium 6.2 mg/dL (8.4-10.2)
--- NOTE | 2020-03-06 18:29 | Progress Note ---
Assessment and Plan 54-year-old with acute metabolic encephalopathy multifactorial DKA and septic shock and acute respiratory failure. Initially hemodynamically unstable now improving. 38 min The high probability of a clinically significant, sudden or life threatening deterioration of the [] system(s) required my full and direct attention, intervention and personal management. The aggregate critical care time was [] minutes. This time is in addition to time spent performing reported procedures but includes the following: [x] Data Review and interpretation [x] Patient assessment and monitoring of vital signs [x] Documentation [x]x Medication orders and management - Patient Problems (1) Septic shock Current Visit: Yes Status: Acute Plan to address problem: Patient with septic shock secondary to UTI and pneumonia. Patient has leuk ocytosis as well as fever. Currently on pressor support. Patient did improve somewhat was able to extubate today. Patient DKA also improved with treatment of underlying etiology of infection. Responding pressor support and aggressive IV volume replacement. Continue cefepime and vancomycin. Follow any ID recommend further ID recommendations. (2) Acute hypoxemic respiratory failure Current Visit: Yes Status: Acute Plan to address problem: Patient now extubated most likely was secondary to infection and uremia metabolic acidosis. (3) Acute kidney injury (RACH) with acute tubular necrosis (ATN) Current Visit: Yes Status: Acute Plan to address problem: Patient with acute kidney injury. Patient known to me from [place]. Has had underlying chronic kidney disease. So most likely acute on chronic. Will need to follow-up at baseline. (4) DKA (diabetic ketoacidoses) Current Visit: Yes Status: Acute Qualifiers: Diabetes mellitus type: type 1 Diabetes mellitus complication detail: with coma Qualified Code(s): E10.11 - Type 1 diabetes mellitus with ketoacidosis with coma Plan to address problem: Patient DKA has resolved now most likely underlying sepsis infection. Will place patient on 70/30 insulin 15 units a.m. 10 units p.m. (5) DVT prophylaxis Current Visit: Yes Status: Acute (6) Hyponatremia syndrome Current Visit: Yes Status: Acute Plan to address problem: Hyponatremia has resolved initially 130 now 140. (7) Metabolic encephalopathy Current Visit: Yes Status: Acute Plan to address problem: Metabolic encephalopathy multifactorial underlying dementia exacerbated by sepsis and hypoxemia. (8) Suspected 2019-nCoV infection Current Visit: No Status: Acute Plan to address problem: Patient is positive for COVID-19 infection. Subjective Date of service: 03/06/20 Principal diagnosis: Septic shock acute respiratory failure Interval history: 54-year-old female with extensive past medical history including diabetes hypertension chronic kidney disease obesity presents from skilled nurse facility with a chief complaint of low-grade fever hypotension tachycardia. Work-up in ED patient found to have severe metabolic acidosis multifactorial and acute h ypoxic respiratory failure. Patient intubated yesterday. Today patient extubated. At present hemodynamically stable. Clinically patient has improved. Remains nonverbal. Patient is somewhat nonverbal at baseline as well. Objective - Constitutional Vitals: Vital Signs - 12hr 03/06/20 03/06/20 03/06/20 06:30 06:41 06:51 Temperature Pulse Rate 111 H 111 H 114 H Pulse Rate [ From Monitor] Respiratory 30 H 26 H 32 H Rate Blood Pressure 107/56 107/56 113/58 O2 Sat by Pulse 100 100 100 Oximetry 03/06/20 03/06/20 03/06/20 07:00 07:11 07:21 Temperature Pulse Rate 112 H 110 H 111 H Pulse Rate [ From Monitor] Respiratory 29 H 25 H 30 H Rate Blood Pressure 114/60 114/60 113/58 O2 Sat by Pulse 100 100 100 Oximetry 03/06/20 03/06/20 03/06/20 07:30 07:41 07:51 Temperature Pulse Rate 112 H 112 H 108 H Pulse Rate [ From Monitor] Respiratory 28 H 27 H 25 H Rate Blood Pressure 118/64 118/64 120/59 O2 Sat by Pulse 100 100 100 Oximetry 03/06/20 03/06/20 03/06/20 08:00 08:11 08:21 Temperature 99.9 F H Pulse Rate 109 H 108 H 110 H Pulse Rate [ 109 H From Monitor] Respiratory 25 H 24 29 H Rate Blood Pressure 106/52 113/53 112/84 O2 Sat by Pulse 100 100 100 Oximetry 03/06/20 03/06/20 03/06/20 08:30 08:33 08:41 Temperature Pulse Rate 116 H 117 H 118 H Pulse Rate [ From Monitor] Respiratory 32 H 26 H Rate Blood Pressure 109/60 109/60 112/84 O2 Sat by Pulse 100 100 100 Oximetry 03/06/20 03/06/20 03/06/20 08:51 09:00 09:11 Temperature Pulse Rate 111 H 114 H 114 H Pulse Rate [ From Monitor] Respiratory 30 H 30 H 28 H Rate Blood Pressure 106/58 113/60 113/60 O2 Sat by Pulse 100 100 100 Oximetry 03/06/20 03/06/20 03/06/20 09:21 09:30 09:41 Temperature Pulse Rate 115 H 112 H 116 H Pulse Rate [ From Monitor] Respiratory 26 H 28 H 27 H Rate Blood Pressure 106/60 99/58 106/60 O2 Sat by Pulse 100 100 100 Oximetry 03/06/20 03/06/20 03/06/20 09:51 10:00 10:11 Temperature Pulse Rate 115 H 113 H 113 H Pulse Rate [ From Monitor] Respiratory 34 H 25 H 28 H Rate Blood Pressure 101/49 89/52 99/58 O2 Sat by Pulse 100 100 100 Oximetry 03/06/20 03/06/20 03/06/20 10:21 10:30 10:41 Temperature Pulse Rate 109 H 109 H 107 H Pulse Rate [ From Monitor] Respiratory 25 H 25 H 30 H Rate Blood Pressure 96/53 90/53 89/52 O2 Sat by Pulse 100 100 Oximetry 03/06/20 03/06/20 03/06/20 10:51 10:53 11:00 Temperature Pulse Rate 110 H 111 H Pulse Rate [ From Monitor] Respiratory 23 24 Rate Blood Pressure 99/56 93/57 O2 Sat by Pulse 97 100 Oximetry 03/06/20 03/06/20 03/06/20 11:11 11:21 11:30 Temperature Pulse Rate 111 H 112 H 112 H Pulse Rate [ From Monitor] Respiratory 22 23 24 Rate Blood Pressure 93/57 96/48 100/56 O2 Sat by Pulse 98 97 Oximetry 03/06/20 03/06/20 03/06/20 11:40 11:50 12:00 Temperature 98.1 F Pulse Rate 112 H 112 H 112 H Pulse Rate [ 112 H From Monitor] Respiratory 23 22 25 H Rate Blood Pressure 100/56 109/58 94/53 O2 Sat by Pulse 100 100 100 Oximetry 03/06/20 03/06/20 03/06/20 12:11 12:21 12:30 Temperature Pulse Rate 110 H 111 H 111 H Pulse Rate [ From Monitor] Respiratory 24 25 H 24 Rate Blood Pressure 92/48 90/54 99/58 O2 Sat by Pulse 100 100 100 Oximetry 03/06/20 03/06/2003/06/20 12:41 12:51 13:00 Temperature Pulse Rate 110 H 110 H 111 H Pulse Rate [ From Monitor] Respiratory 25 H 24 29 H Rate Blood Pressure 90/54 103/60 106/62 O2 Sat by Pulse 100 100 100 Oximetry 03/06/20 03/06/20 03/06/20 13:11 13:21 13:30 Temperature Pulse Rate 107 H 108 H 109 H Pulse Rate [ From Monitor] Respiratory 22 25 H 21 Rate Blood Pressure 106/62 105/66 111/61 O2 Sat by Pulse 100 100 100 Oximetry 03/06/20 03/06/20 03/06/20 13:41 13:51 14:00 Temperature Pulse Rate 109 H 110 H 109 H Pulse Rate [ From Monitor] Respiratory 21 18 24 Rate Blood Pressure 111/61 105/65 98/61 O2 Sat by Pulse 100 100 Oximetry 03/06/20 03/06/20 03/06/20 14:11 14:21 14:30 Temperature Pulse Rate 107 H 107 H 107 H Pulse Rate [ From Monitor] Respiratory 23 24 26 H Rate Blood Pressure 98/61 106/64 89/61 O2 Sat by Pulse 100 100 100 Oximetry 03/06/20 03/06/20 03/06/20 14:41 14:51 15:00 Temperature Pulse Rate 107 H 108 H 106 H Pulse Rate [ From Monitor] Respiratory 22 25 H 24 Rate Blood Pressure 89/61 88/58 97/62 O2 Sat by Pulse 100 100 100 Oximetry 03/06/20 03/06/20 03/06/20 15:11 15:21 15:30 Temperature Pulse Rate 107 H 104 H 106 H Pulse Rate [ From Monitor] Respiratory 22 22 23 Rate Blood Pressure 97/62 99/63 105/65 O2 Sat by Pulse 100 100 100 Oximetry 03/06/20 03/06/20 03/06/20 15:41 15:51 16:00 Temperature 98.0 F Pulse Rate 106 H 102 H 103 H Pulse Rate [ 103 H From Monitor] Respiratory 18 20 23 Rate Blood Pressure 105/65 105/60 114/68 O2 Sat by Pulse 100 100 100 Oximetry 03/06/20 03/06/20 03/06/20 16:11 16:21 16:30 Temperature Pulse Rate 104 H 105 H 105 H Pulse Rate [ From Monitor] Respiratory 21 24 24 Rate Blood Pressure 114/68 106/68 102/66 O2 Sat by Pulse 100 100 Oximetry 03/06/20 03/06/20 03/06/20 16:41 16:50 17:00 Temperature Pulse Rate 105 H 105 H 106 H Pulse Rate [ From Monitor] Respiratory 23 19 25 H Rate Blood Pressure 102/66 90/54 97/56 O2 Sat by Pulse 100 99 100 Oximetry 03/06/20 03/06/20 03/06/20 17:11 17:21 17:30 Temperature Pulse Rate 101 H 102 H 104 H Pulse Rate [ From Monitor] Respiratory 19 21 25 H Rate Blood Pressure 97/56 97/56 107/65 O2 Sat by Pulse 100 100 100 Oximetry General appearance: Present: mild distress - EENT Eyes: PERRL, EOM intact - Respiratory Respiratory: bilateral: diminished - Cardiovascular Rhythm: regular Heart Sounds: Present: S1 & S2. Absent: gallop, rub Extremities: pulses intact, normal color, Full ROM Extremity abnormal: edema - Musculoskeletal Musculoskeletal: generalized weakness - Neurologic Neurologic: focal deficits - Psychiatric Psychiatric: other (Poor cognition nonverbal.) - Labs CBC & Chem 7: 03/05/20 11:20 03/06/20 07:35 Labs: Abnormal lab results 03/05/20 03/05/20 03/05/20 Range/Units 14:35 15:43 19:48 ABG pH (7.350-7.450) pH Units ABG pO2 (80.0-90.0) mm Hg ABG HCO3 (20.0-26.0) mmol/L ABG O2 Saturation (95.0-99.0) % ABG Base Excess (-2.0-3.0) mmol/L ABG Hemoglobin (12.0-16.0) gm/dl Sodium 134 L D (137-145) mmol/L Potassium 2.7 L* D (3.6-5.0) mmol/L Chloride 110.6 H 95.9 L (98-107) mmol/L Carbon Dioxide 17 L D 3 L* D 6 L* (22-30) mmol/L BUN 29 H 30 H 30 H (7-17) mg/dL Creatinine 1.8 H 1.5 H 1.6 H (0.6-1.2) mg/dL Glucose 897 H* 631 H* (65-100) mg/dL POC Glucose (70-105) Lactic Acid (0.7-2.0) mmol/L Calcium 6.2 L 7.2 L D 6.4 L (8.4-10.2) mg/dL Coronavirus (PCR) (Negative) 03/05/20 03/05/20 03/06/20 Range/Units 20:30 Unknown 00:12 ABG pH (7.350-7.450) pH Units ABG pO2 (80.0-90.0) mm Hg ABG HCO3 (20.0-26.0) mmol/L ABG O2 Saturation (95.0-99.0) % ABG Base Excess (-2.0-3.0) mmol/L ABG Hemoglobin (12.0-16.0) gm/dl Sodium (137-145) mmol/L Potassium (3.6-5.0) mmol/L Chloride (98-107) mmol/L Carbon Dioxide (22-30) mmol/L BUN (7-17) mg/dL Creatinine (0.6-1.2) mg/dL Glucose 577 H* (65-100) mg/dL POC Glucose 346 H (70-105) Lactic Acid (0.7-2.0) mmol/L Calcium (8.4-10.2) mg/dL Coronavirus (PCR) Positive A (Negative) 03/06/20 03/06/20 03/06/20 Range/Units 01:44 02:09 03:39 ABG pH (7.350-7.450) pH Units ABG pO2 (80.0-90.0) mm Hg ABG HCO3 (20.0-26.0) mmol/L ABG O2 Saturation (95.0-99.0) % ABG Base Excess (-2.0-3.0) mmol/L ABG Hemoglobin (12.0-16.0) gm/dl Sodium (137-145) mmol/L Potassium (3.6-5.0) mmol/L Chloride (98-107) mmol/L Carbon Dioxide (22-30) mmol/L BUN (7-17) mg/dL Creatinine (0.6-1.2) mg/dL Glucose (65-100) mg/dL POC Glucose 263 H 220 H 178 H (70-105) Lactic Acid (0.7-2.0) mmol/L Calcium (8.4-10.2) mg/dL Coronavirus (PCR) (Negative) 03/06/20 03/06/20 03/06/20 Range/Units 04:05 05:13 06:13 ABG pH (7.350-7.450) pH Units ABG pO2 (80.0-90.0) mm Hg ABG HCO3 (20.0-26.0) mmol/L ABG O2 Saturation (95.0-99.0) % ABG Base Excess (-2.0-3.0) mmol/L ABG Hemoglobin (12.0-16.0) gm/dl Sodium (137-145) mmol/L Potassium (3.6-5.0) mmol/L Chloride (98-107) mmol/L Carbon Dioxide (22-30) mmol/L BUN (7-17) mg/dL Creatinine (0.6-1.2) mg/dL Glucose (65-100) mg/dL POC Glucose 162 H 129 H 120 H (70-105) Lactic Acid (0.7-2.0) mmol/L Calcium (8.4-10.2) mg/dL Coronavirus (PCR) (Negative) 03/06/20 03/06/20 03/06/20 Range/Units 06:44 07:35 07:35 ABG pH (7.350-7.450) pH Units ABG pO2 (80.0-90.0) mm Hg ABG HCO3 (20.0-26.0) mmol/L ABG O2 Saturation (95.0-99.0) % ABG Base Excess (-2.0-3.0) mmol/L ABG Hemoglobin (12.0-16.0) gm/dl Sodium (137-145) mmol/L Potassium 3.3 L D (3.6-5.0) mmol/L Chloride 108.7 H (98-107) mmol/L Carbon Dioxide 16 L D (22-30) mmol/L BUN 29 H (7-17) mg/dL Creatinine 1.7 H (0.6-1.2) mg/dL Glucose 122 H (65-100) mg/dL POC Glucose 142 H (70-105) Lactic Acid 6.90 H* (0.7-2.0) mmol/L Calcium 6.4 L (8.4-10.2) mg/dL Coronavirus (PCR) (Negative) 03/06/20 03/06/20 03/06/20 Range/Units 07:52 08:42 12:35 ABG pH 7.470 H (7.350-7.450) pH Units ABG pO2 451.0 H (80.0-90.0) mm Hg ABG HCO3 15.3 L (20.0-26.0) mmol/L ABG O2 Saturation 99.6 H (95.0-99.0) % ABG Base Excess -7.3 L (-2.0-3.0) mmol/L ABG Hemoglobin 7.7 L (12.0-16.0) gm/dl Sodium (137-145) mmol/L Potassium (3.6-5.0) mmol/L Chloride (98-107) mmol/L Carbon Dioxide (22-30) mmol/L BUN (7-17) mg/dL Creatinine (0.6-1.2) mg/dL Glucose (65-100) mg/dL POC Glucose 131 H 132 H (70-105) Lactic Acid (0.7-2.0) mmol/L Calcium (8.4-10.2) mg/dL Coronavirus (PCR) (Negative) 03/06/20 03/06/20 03/06/20 Range/Units 13:55 14:35 14:52 ABG pH (7.350-7.450) pH Units ABG pO2 (80.0-90.0) mm Hg ABG HCO3 (20.0-26.0) mmol/L ABG O2 Saturation (95.0-99.0) % ABG Base Excess (-2.0-3.0) mmol/L ABG Hemoglobin (12.0-16.0) gm/dl Sodium (137-145) mmol/L Potassium (3.6-5.0) mmol/L Chloride (98-107) mmol/L Carbon Dioxide (22-30) mmol/L BUN (7-17) mg/dL Creatinine (0.6-1.2) mg/dL Glucose (65-100) mg/dL POC Glucose 130 H 136 H (70-105) Lactic Acid 4.30 H* (0.7-2.0) mmol/L Calcium (8.4-10.2) mg/dL Coronavirus (PCR) (Negative) 03/06/20 Range/Units 15:42 ABG pH (7.350-7.450) pH Units ABG pO2 (80.0-90.0) mm Hg ABG HCO3 (20.0-26.0) mmol/L ABG O2 Saturation (95.0-99.0) % ABG Base Excess (-2.0-3.0) mmol/L ABG Hemoglobin (12.0-16.0) gm/dl Sodium (137-145) mmol/L Potassium (3.6-5.0) mmol/L Chloride (98-107) mmol/L Carbon Dioxide (22-30) mmol/L BUN (7-17) mg/dL Creatinine (0.6-1.2) mg/dL Glucose (65-100) mg/dL POC Glucose 139 H (70-105) Lactic Acid (0.7-2.0) mmol/L Calcium (8.4-10.2) mg/dL Coronavirus (PCR) (Negative) - Imaging and cardiology Chest x-ray: report reviewed (Abdominal x-ray), image reviewed
[2020-03-07] MEDS: D5W/0.45% NACL/KCL 20 MEQ 20 MEQ/1,000 ML BAG IV SCH (00:49)
[2020-03-07 01:12] LABS: Calcium 6.1 mg/dL (8.4-10.2)
[2020-03-07] MEDS: NORepinephrine/NS 4 MG-250 ML 4 MG/250 ML BAG IV SCH (04:52)
[2020-03-07] MEDS: INSULIN LISPRO 100 UNIT/ML VIAL 3 mL SUB-Q SCH ×4 (06:33→18:12)
[2020-03-07 07:30] LABS: Calcium 6.1 mg/dL (8.4-10.2)
[2020-03-07] MEDS: INSULIN NPH/REGULAR 70/30 INJ SUB-Q SCH ×2 (07:59→18:11)
[2020-03-07] MEDS: D5W/0.45% NACL 1,000 ML IV SCH (09:30)
[2020-03-07] MEDS: CEFEPIME/NS 2 GM/100 ML 2 GM/100 ML BAG IV SCH ×2 (09:30→20:59)
[2020-03-07] MEDS: ENOXAPARIN 60 MG/0.6 ML INJ SUB-Q SCH (09:31)
--- NOTE | 2020-03-07 10:11 | Progress Note ---
Assessment and Plan 54 y/o female with severe metabolic acidosis and acute respiratory failure 1. Stable for transfer to the floor 2. Speech eval, continue IVF's but at 75/hr without the potassium. Suggest contining q6hour BMP's given how brittle her diabetes is and she should have q4 hour fingersticks. 3. NPO until speech eval 4. Renal failure is worsening , suggest renal consult 4. Long discussion with sister over the phone on yesterday. Here in [place] are a Sister and a niece. She does have 3 brothers, one of whom is developmentally challenged. I have asked her to consider making Mrs. Garcia an AND if she is not able to wake up and make the decision for herself. She is going to call the brothers and discuss with them to let us know. Overall prognosis is guarded to poor. will transfer to the floor today, med surge. Subjective Date of service: 03/07/20 Principal diagnosis: Septic shock acute respiratory failure Interval history: Weaned down to room air. Anion Gap has closed and has been started on long acting insulin. Remainder is negative. Objective Vital Signs - 12hr 03/06/20 03/06/20 03/06/20 22:11 22:21 22:30 Temperature Pulse Rate 95 H 94 H 94 H Pulse Rate [ From Monitor] Respiratory 25 H 24 27 H Rate Blood Pressure 91/56 90/56 94/53 O2 Sat by Pulse 98 99 99 Oximetry 03/06/20 03/06/20 03/06/20 22:41 22:51 23:00 Temperature Pulse Rate 95 H 95 H 94 H Pulse Rate [ From Monitor] Respiratory 25 H 24 27 H Rate Blood Pressure 94/53 91/59 96/60 O2 Sat by Pulse 98 98 Oximetry 03/06/20 03/06/20 03/06/20 23:10 23:21 23:30 Temperature Pulse Rate 95 H 96 H 93 H Pulse Rate [ From Monitor] Respiratory 24 25 H 24 Rate Blood Pressure 96/60 95/60 97/57 O2 Sat by Pulse 98 98 96 Oximetry 03/06/20 03/06/20 03/07/20 23:41 23:51 00:00 Temperature 98.3 F Pulse Rate 98 H 93 H 93 H Pulse Rate [ 92 H From Monitor] Respiratory 28 H 22 24 Rate Blood Pressure 97/57 95/65 91/58 O2 Sat by Pulse 98 99 99 Oximetry 03/07/20 03/07/20 03/07/20 00:11 00:21 00:30 Temperature Pulse Rate 94 H 94 H 97 H Pulse Rate [ From Monitor] Respiratory 24 26 H 25 H Rate Blood Pressure 91/58 88/61 92/55 O2 Sat by Pulse 98 99 Oximetry 03/07/20 03/07/20 03/07/20 00:41 00:51 01:00 Temperature Pulse Rate 91 H 88 90 Pulse Rate [ From Monitor] Respiratory 21 22 26 H Rate Blood Pressure 92/55 93/56 103/60 O2 Sat by Pulse 100 100 99 Oximetry 03/07/20 03/07/20 03/07/20 01:11 01:21 01:30 Temperature Pulse Rate 88 88 87 Pulse Rate [ From Monitor] Respiratory 15 22 23 Rate Blood Pressure 103/60 113/71 106/68 O2 Sat by Pulse 99 97 Oximetry 03/07/20 03/07/20 03/07/20 01:41 01:51 02:00 Temperature Pulse Rate 85 87 86 Pulse Rate [ From Monitor] Respiratory 22 22 Rate Blood Pressure 106/68 108/69 112/69 O2 Sat by Pulse 99 99 Oximetry 03/07/20 03/07/20 03/07/20 02:11 02:21 02:30 Temperature Pulse Rate 85 84 86 Pulse Rate [ From Monitor] Respiratory 24 18 22 Rate Blood Pressure 112/69 121/72 112/69 O2 Sat by Pulse 99 100 100 Oximetry 03/07/20 03/07/20 03/07/20 02:41 02:51 03:00 Temperature Pulse Rate 88 85 87 Pulse Rate [ From Monitor] Respiratory 23 18 22 Rate Blood Pressure 112/69 114/73 117/75 O2 Sat by Pulse 99 100 Oximetry 03/07/20 03/07/20 03/07/20 03:11 03:21 03:30 Temperature Pulse Rate 86 86 85 Pulse Rate [ From Monitor] Respiratory 20 22 Rate Blood Pressure 117/75 111/69 115/75 O2 Sat by Pulse 100 100 Oximetry 03/07/20 03/07/20 03/07/20 03:41 03:51 04:00 Temperature 98.8 F Pulse Rate 85 90 93 H Pulse Rate [ 82 From Monitor] Respiratory 21 25 H 30 H Rate Blood Pressure 115/75 119/74 101/76 O2 Sat by Pulse 100 100 99 Oximetry 03/07/20 03/07/20 03/07/20 04:11 04:21 04:30 Temperature Pulse Rate 84 82 86 Pulse Rate [ From Monitor] Respiratory 21 18 22 Rate Blood Pressure 101/76 104/68 96/70 O2 Sat by Pulse 98 100 Oximetry 03/07/20 03/07/20 03/07/20 04:41 04:51 05:00 Temperature Pulse Rate 83 83 88 Pulse Rate [ From Monitor] Respiratory 20 21 25 H Rate Blood Pressure 96/70 102/73 115/82 O2 Sat by Pulse 100 100 Oximetry 03/07/20 03/07/20 03/07/20 05:11 05:21 05:30 Temperature Pulse Rate 82 85 84 Pulse Rate [ From Monitor] Respiratory 20 24 22 Rate Blood Pressure 115/82 113/75 117/79 O2 Sat by Pulse 100 100 Oximetry 03/07/20 03/07/20 03/07/20 05:41 05:51 06:00 Temperature Pulse Rate 83 83 84 Pulse Rate [ From Monitor] Respiratory 20 21 24 Rate Blood Pressure 117/79 114/79 109/71 O2 Sat by Pulse 99 99 Oximetry 03/07/20 03/07/20 03/07/20 06:11 06:21 06:30 Temperature Pulse Rate 85 79 78 Pulse Rate [ From Monitor] Respiratory 28 H 24 20 Rate Blood Pressure 109/71 118/66 109/73 O2 Sat by Pulse 99 100 Oximetry 03/07/20 03/07/20 03/07/20 06:41 07:00 07:30 Temperature Pulse Rate 76 84 81 Pulse Rate [ From Monitor] Respiratory 20 23 20 Rate Blood Pressure 109/71 104/71 94/64 O2 Sat by Pulse 100 100 Oximetry 03/07/20 08:00 Temperature 97.7 F Pulse Rate 83 Pulse Rate [ 77 From Monitor] Respiratory 22 Rate Blood Pressure 97/70 O2 Sat by Pulse 100 Oximetry CBC and BMP: 03/05/20 11:20 03/07/20 06:34 ABG, PT/INR, D-dimer: ABG ABG pH 7.470 pH Units (7.350-7.450) H 03/06/20 08:42 ABG pCO2 21.5 mm Hg 03/06/20 08:42 ABG pO2 451.0 mm Hg (80.0-90.0) H 03/06/20 08:42 ABG O2 Saturation 99.6 % (95.0-99.0) H 03/06/20 08:42 PT/INR, D-dimer D-Dimer 1015.54 ng/mlDDU (0-234) H 03/05/20 11:20 Abnormal lab findings: Abnormal Labs 03/05/20 03/05/20 03/05/20 11:18 11:20 11:20 WBC 19.4 H RBC 2.48 L Hgb 7.4 L Hct 25.4 L MCV 103 H MCHC 29 L RDW 18.8 H Seg Neuts % (Manual) 95.0 H Lymphocytes % (Manual) 2.0 L Seg Neutrophils # Man 18.4 H Lymphocytes # (Manual) 0.4 L D-Dimer ABG pH ABG pO2 ABG HCO3 ABG O2 Saturation ABG Base Excess ABG Hemoglobin Oxyhemoglobin Sodium 133 L D Potassium Chloride 91.0 L Carbon Dioxide 3 L* D BUN 32 H Creatinine 1.6 H D Glucose 1011 H* POC Glucose Lactic Acid Calcium 7.1 L Phosphorus 6.90 H Ferritin Alkaline Phosphatase 142 H Lactate Dehydrogenase C-Reactive Protein Total Protein 4.1 L Albumin 1.8 L Coronavirus (PCR) 03/05/20 03/05/20 03/05/20 11:20 11:20 11:20 WBC RBC Hgb Hct MCV MCHC RDW Seg Neuts % (Manual) Lymphocytes % (Manual) Seg Neutrophils # Man Lymphocytes # (Manual) D-Dimer 1015.54 H ABG pH ABG pO2 ABG HCO3 ABG O2 Saturation ABG Base Excess ABG Hemoglobin Oxyhemoglobin Sodium Potassium Chloride Carbon Dioxide BUN Creatinine Glucose 1013 H* POC Glucose Lactic Acid 7.60 H* Calcium Phosphorus Ferritin Alkaline Phosphatase Lactate Dehydrogenase 351 H C-Reactive Protein 2.80 H Total Protein Albumin Coronavirus (PCR) 03/05/20 03/05/20 03/05/20 11:20 11:20 14:35 WBC RBC Hgb Hct MCV MCHC RDW Seg Neuts % (Manual) Lymphocytes % (Manual) Seg Neutrophils # Man Lymphocytes # (Manual) D-Dimer ABG pH 7.039 L* ABG pO2 330.9 H ABG HCO3 3.4 L ABG O2 Saturation ABG Base Excess -25.2 L ABG Hemoglobin 9.0 L Oxyhemoglobin Sodium Potassium Chloride 110.6 H Carbon Dioxide 17 L D BUN 29 H Creatinine 1.8 H Glucose POC Glucose Lactic Acid Calcium 6.2 L Phosphorus Ferritin 1335.0 H Alkaline Phosphatase Lactate Dehydrogenase C-Reactive Protein Total Protein Albumin Coronavirus (PCR) 03/05/20 03/05/20 03/05/20 15:04 15:25 15:43 WBC RBC Hgb Hct MCV MCHC RDW Seg Neuts % (Manual) Lymphocytes % (Manual) Seg Neutrophils # Man Lymphocytes # (Manual) D-Dimer ABG pH 6.960 L* ABG pO2 62.5 L ABG HCO3 4.1 L ABG O2 Saturation 76.5 L ABG Base Excess -25.3 L ABG Hemoglobin 5.2 L Oxyhemoglobin 75.1 L Sodium 134 L D Potassium Chloride 95.9 L Carbon Dioxide 3 L* D BUN 30 H Creatinine 1.5 H Glucose 897 H* POC Glucose > 500 H Lactic Acid Calcium 7.2 L D Phosphorus Ferritin Alkaline Phosphatase Lactate Dehydrogenase C-Reactive Protein Total Protein Albumin Coronavirus (PCR) 03/05/20 03/05/20 03/05/20 15:43 19:48 20:30 WBC RBC Hgb Hct MCV MCHC RDW Seg Neuts % (Manual) Lymphocytes % (Manual) Seg Neutrophils # Man Lymphocytes # (Manual) D-Dimer ABG pH ABG pO2 ABG HCO3 ABG O2 Saturation ABG Base Excess ABG Hemoglobin Oxyhemoglobin Sodium Potassium 2.7 L* D Chloride Carbon Dioxide 6 L* BUN 30 H Creatinine 1.6 H Glucose 631 H* 577 H* POC Glucose Lactic Acid 5.50 H* Calcium 6.4 L Phosphorus Ferritin Alkaline Phosphatase Lactate Dehydrogenase C-Reactive Protein Total Protein Albumin Coronavirus (PCR) 03/05/20 03/06/20 03/06/20 Unknown 00:12 01:44 WBC RBC Hgb Hct MCV MCHC RDW Seg Neuts % (Manual) Lymphocytes % (Manual) Seg Neutrophils # Man Lymphocytes # (Manual) D-Dimer ABG pH ABG pO2 ABG HCO3 ABG O2 Saturation ABG Base Excess ABG Hemoglobin Oxyhemoglobin Sodium Potassium Chloride Carbon Dioxide BUN Creatinine Glucose POC Glucose 346 H 263 H Lactic Acid Calcium Phosphorus Ferritin Alkaline Phosphatase Lactate Dehydrogenase C-Reactive Protein Total Protein Albumin Coronavirus (PCR) Positive A 03/06/20 03/06/20 03/06/20 02:09 03:39 04:05 WBC RBC Hgb Hct MCV MCHC RDW Seg Neuts % (Manual) Lymphocytes % (Manual) Seg Neutrophils # Man Lymphocytes # (Manual) D-Dimer ABG pH ABG pO2 ABG HCO3 ABG O2 Saturation ABG Base Excess ABG Hemoglobin Oxyhemoglobin Sodium Potassium Chloride Carbon Dioxide BUN Creatinine Glucose POC Glucose 220 H 178 H 162 H Lactic Acid Calcium Phosphorus Ferritin Alkaline Phosphatase Lactate Dehydrogenase C-Reactive Protein Total Protein Albumin Coronavirus (PCR) 03/06/20 03/06/20 03/06/20 05:13 06:13 06:44 WBC RBC Hgb Hct MCV MCHC RDW Seg Neuts % (Manual) Lymphocytes % (Manual) Seg Neutrophils # Man Lymphocytes # (Manual) D-Dimer ABG pH ABG pO2 ABG HCO3 ABG O2 Saturation ABG Base Excess ABG Hemoglobin Oxyhemoglobin Sodium Potassium Chloride Carbon Dioxide BUN Creatinine Glucose POC Glucose 129 H 120 H 142 H Lactic Acid Calcium Phosphorus Ferritin Alkaline Phosphatase Lactate Dehydrogenase C-Reactive Protein Total Protein Albumin Coronavirus (PCR) 03/06/20 03/06/20 03/06/20 07:35 07:35 07:52 WBC RBC Hgb Hct MCV MCHC RDW Seg Neuts % (Manual) Lymphocytes % (Manual) Seg Neutrophils # Man Lymphocytes # (Manual) D-Dimer ABG pH ABG pO2 ABG HCO3 ABG O2 Saturation ABG Base Excess ABG Hemoglobin Oxyhemoglobin Sodium Potassium 3.3 L D Chloride 108.7 H Carbon Dioxide 16 L D BUN 29 H Creatinine 1.7 H Glucose 122 H POC Glucose 131 H Lactic Acid 6.90 H* Calcium 6.4 L Phosphorus Ferritin Alkaline Phosphatase Lactate Dehydrogenase C-Reactive Protein Total Protein Albumin Coronavirus (PCR) 03/06/20 03/06/20 03/06/20 08:42 12:35 13:55 WBC RBC Hgb Hct MCV MCHC RDW Seg Neuts % (Manual) Lymphocytes % (Manual) Seg Neutrophils # Man Lymphocytes # (Manual) D-Dimer ABG pH 7.470 H ABG pO2 451.0 H ABG HCO3 15.3 L ABG O2 Saturation 99.6 H ABG Base Excess -7.3 L ABG Hemoglobin 7.7 L Oxyhemoglobin Sodium Potassium Chloride Carbon Dioxide BUN Creatinine Glucose POC Glucose 132 H 130 H Lactic Acid Calcium Phosphorus Ferritin Alkaline Phosphatase Lactate Dehydrogenase C-Reactive Protein Total Protein Albumin Coronavirus (PCR) 03/06/20 03/06/20 03/06/20 14:35 14:52 15:42 WBC RBC Hgb Hct MCV MCHC RDW Seg Neuts % (Manual) Lymphocytes % (Manual) Seg Neutrophils # Man Lymphocytes # (Manual) D-Dimer ABG pH ABG pO2 ABG HCO3 ABG O2 Saturation ABG Base Excess ABG Hemoglobin Oxyhemoglobin Sodium Potassium Chloride Carbon Dioxide BUN Creatinine Glucose POC Glucose 136 H 139 H Lactic Acid 4.30 H* Calcium Phosphorus Ferritin Alkaline Phosphatase Lactate Dehydrogenase C-Reactive Protein Total Protein Albumin Coronavirus (PCR) 03/06/20 03/06/20 03/06/20 17:11 18:30 18:41 WBC RBC Hgb Hct MCV MCHC RDW Seg Neuts % (Manual) Lymphocytes % (Manual) Seg Neutrophils # Man Lymphocytes # (Manual) D-Dimer ABG pH ABG pO2 ABG HCO3 ABG O2 Saturation ABG Base Excess ABG Hemoglobin Oxyhemoglobin Sodium Potassium Chloride 111.1 H Carbon Dioxide 17 L BUN 28 H Creatinine 1.8 H Glucose POC Glucose 111 H 115 H Lactic Acid Calcium 6.0 L Phosphorus Ferritin Alkaline Phosphatase Lactate Dehydrogenase C-Reactive Protein Total Protein Albumin Coronavirus (PCR) 03/06/20 03/06/20 03/06/20 19:26 20:29 23:51 WBC RBC Hgb Hct MCV MCHC RDW Seg Neuts % (Manual) Lymphocytes % (Manual) Seg Neutrophils # Man Lymphocytes # (Manual) D-Dimer ABG pH ABG pO2 ABG HCO3 ABG O2 Saturation ABG Base Excess ABG Hemoglobin Oxyhemoglobin Sodium Potassium Chloride Carbon Dioxide BUN Creatinine Glucose POC Glucose 119 H 106 H 280 H Lactic Acid Calcium Phosphorus Ferritin Alkaline Phosphatase Lactate Dehydrogenase C-Reactive Protein Total Protein Albumin Coronavirus (PCR) 03/07/20 03/07/20 03/07/20 00:00 05:21 06:34 WBC RBC Hgb Hct MCV MCHC RDW Seg Neuts % (Manual) Lymphocytes % (Manual) Seg Neutrophils # Man Lymphocytes # (Manual) D-Dimer ABG pH ABG pO2 ABG HCO3 ABG O2 Saturation ABG Base Excess ABG Hemoglobin Oxyhemoglobin Sodium Potassium Chloride 108.3 H 110.3 H Carbon Dioxide 16 L 14 L BUN 29 H 31 H Creatinine 1.8 H 2.0 H Glucose 308 H 304 H POC Glucose 326 H Lactic Acid Calcium 6.1 L 6.1 L Phosphorus Ferritin Alkaline Phosphatase Lactate Dehydrogenase C-Reactive Protein Total Protein Albumin Coronavirus (PCR)
--- NOTE | 2020-03-07 13:03 | Progress Note ---
Assessment and Plan Assessment and plan: Septic shock Patient with septic shock secondary to UTI and pneumonia. Patient has leukocytosis as well as fever. Currently on pressor support. Patient did improve somewhat was able to extubate today. Patient DKA also improved with treatment of underlying etiology of infection. Responding pressor support and aggressive IV volume replacement. Continue cefepime and vancomycin. Follow any ID recommend further ID recommendations. Acute hypoxemic respiratory failure Patient now extubated most likely was secondary to infection and uremia metaboli c acidosis. Acute kidney injury (RACH) with acute tubular necrosis (ATN) Patient with acute kidney injury. Patient known to me from [place]. Has had underlying chronic kidney disease. So most likely acute on chronic. Will need to follow-up at baseline. DKA (diabetic ketoacidoses) Patient DKA has resolved now most likely underlying sepsis infection. Will place patient on 70/30 insulin 15 units a.m. 10 units p.m. DVT prophylaxis Hyponatremia syndrome Hyponatremia has resolved Toxic Metabolic encephalopathy Metabolic encephalopathy multifactorial underlying dementia exacerbated by sepsis and hypoxemia. COVID 19 Pneumonia Patient is positive for COVID-19 infection. History Interval history: 54-year-old with acute metabolic encephalopathy multifactorial DKA and septic shock and acute respiratory failure. Initially hemodynamically unstable now improving. Hospitalist Physical - Constitutional Vitals: Temp Pulse Resp BP Pulse Ox 97.7 F 74 19 99/71 98 03/07/20 08:00 03/07/20 12:30 03/07/20 12:30 03/07/20 12:30 03/07/20 12:30 General appearance: Present: mild distress - EENT Eyes: Present: PERRL, EOM intact ENT: hearing intact, clear oral mucosa, dentition normal - Neck Neck: Present: supple, normal ROM - Respiratory Respiratory effort: normal Respiratory: bilateral: CTA - Cardiovascular Rhythm: regular Heart Sounds: Present: S1 & S2. Absent: gallop, rub - Extremities Extremities: no ischemia, No edema, Full ROM - Abdominal General gastrointestinal: soft, non-tender, non-distended, normal bowel sounds - Integumentary Integumentary: Present: clear, warm, dry - Neurologic Neurologic: CNII-XII intact, moves all extremities Results - Labs CBC & Chem 7: 03/05/20 11:20 03/07/20 06:34 Labs: Laboratory Last Values WBC 19.4 K/mm3 (4.5-11.0) H 03/05/20 11:20 RBC 2.48 M/mm3 (3.65-5.03) L 03/05/20 11:20 Hgb 7.4 gm/dl (10.1-14.3) L 03/05/20 11:20 Hct 25.4 % (30.3-42.9) L 03/05/20 11:20 MCV 103 fl (79-97) H 03/05/20 11:20 MCH 30 pg (28-32) 03/05/20 11:20 MCHC 29 % (30-34) L 03/05/20 11:20 RDW 18.8 % (13.2-15.2) H 03/05/20 11:20 Plt Count 388 K/mm3 (140-440) 03/05/20 11:20 Add Manual Diff Complete 03/05/20 11:20 Total Counted 100 03/05/20 11:20 Seg Neuts % (Manual) 95.0 % (40.0-70.0) H 03/05/20 11:20 Band Neutrophils % 0 % 03/05/20 11:20 Lymphocytes % (Manual) 2.0 % (13.4-35.0) L 03/05/20 11:20 Reactive Lymphs % (Man) 0 % 03/05/20 11:20 Monocytes % (Manual) 3.0 % (0.0-7.3) 03/05/20 11:20 Eosinophils % (Manual) 0 % (0.0-4.3) 03/05/20 11:20 Basophils % (Manual) 0 % (0.0-1.8) 03/05/20 11:20 Metamyelocytes % 0 % 03/05/20 11:20 Myelocytes % 0 % 03/05/20 11:20 Promyelocytes % 0 % 03/05/20 11:20 Blast Cells % 0 % 03/05/20 11:20 Nucleated RBC % Not Reportable 03/05/20 11:20 Seg Neutrophils # Man 18.4 K/mm3 (1.8-7.7) H 03/05/20 11:20 Band Neutrophils # 0.0 K/mm3 03/05/20 11:20 Lymphocytes # (Manual) 0.4 K/mm3 (1.2-5.4) L 03/05/20 11:20 Abs React Lymphs (Man) 0.0 K/mm3 03/05/20 11:20 Monocytes # (Manual) 0.6 K/mm3 (0.0-0.8) 03/05/20 11:20 Eosinophils # (Manual) 0.0 K/mm3 (0.0-0.4) 03/05/20 11:20 Basophils # (Manual) 0.0 K/mm3 (0.0-0.1) 03/05/20 11:20 Metamyelocytes # 0.0 K/mm3 03/05/20 11:20 Myelocytes # 0.0 K/mm3 03/05/20 11:20 Promyelocytes # 0.0 K/mm3 03/05/20 11:20 Blast Cells # 0.0 K/mm3 03/05/20 11:20 WBC Morphology Not Reportable 03/05/20 11:20 Hypersegmented Neuts Not Reportable 03/05/20 11:20 Hyposegmented Neuts Not Reportable 03/05/20 11:20 Hypogranular Neuts Not Reportable 03/05/20 11:20 Smudge Cells Not Reportable 03/05/20 11:20 Toxic Granulation Not Reportable 03/05/20 11:20 Toxic Vacuolation Not Reportable 03/05/20 11:20 Dohle Bodies Not Reportable 03/05/20 11:20 Pelger-Huet Anomaly Not Reportable 03/05/20 11:20 Jamia Rods Not Reportable 03/05/20 11:20 Platelet Estimate Consistent w auto 03/05/20 11:20 Clumped Platelets Not Reportable 03/05/20 11:20 Plt Clumps, EDTA Not Reportable 03/05/20 11:20 Large Platelets Not Reportable 03/05/20 11:20 Giant Platelets Not Reportable 03/05/20 11:20 Platelet Satelliting Not Reportable 03/05/20 11:20 Plt Morphology Comment Not Reportable 03/05/20 11:20 RBC Morphology Not Reportable 03/05/20 11:20 Dimorphic RBCs Not Reportable 03/05/20 11:20 Polychromasia Not Reportable 03/05/20 11:20 Hypochromasia Not Reportable 03/05/20 11:20 Poikilocytosis Not Reportable 03/05/20 11:20 Anisocytosis 1+ 03/05/20 11:20 Microcytosis Few 03/05/20 11:20 Macrocytosis Few 03/05/20 11:20 Spherocytes Not Reportable 03/05/20 11:20 Pappenheimer Bodies Not Reportable 03/05/20 11:20 Sickle Cells Not Reportable 03/05/20 11:20 Target Cells Not Reportable 03/05/20 11:20 Tear Drop Cells Not Reportable 03/05/20 11:20 Ovalocytes Not Reportable 03/05/20 11:20 Helmet Cells Not Reportable 03/05/20 11:20 Galvan-[place] Bodies Not Reportable 03/05/20 11:20 Elcho Rings Not Reportable 03/05/20 11:20 Luis Cells Not Reportable 03/05/20 11:20 Bite Cells Not Reportable 03/05/20 11:20 Crenated Cell Not Reportable 03/05/20 11:20 Elliptocytes Not Reportable 03/05/20 11:20 Acanthocytes (Spur) Not Reportable 03/05/20 11:20 Rouleaux Not Reportable 03/05/20 11:20 Hemoglobin C Crystals Not Reportable 03/05/20 11:20 Schistocytes Not Reportable 03/05/20 11:20 Malaria parasites Not Reportable 03/05/20 11:20 Felice Bodies Not Reportable 03/05/20 11:20 Hem Pathologist Commnt No 03/05/20 11:20 D-Dimer 1015.54 ng/mlDDU (0-234) H 03/05/20 11:20 ABG pH 7.470 pH Units (7.350-7.450) H 03/06/20 08:42 ABG pCO2 21.5 mm Hg 03/06/20 08:42 ABG pO2 451.0 mm Hg (80.0-90.0) H 03/06/20 08:42 ABG HCO3 15.3 mmol/L (20.0-26.0) L 03/06/20 08:42 ABG O2 Saturation 99.6 % (95.0-99.0) H 03/06/20 08:42 ABG O2 Content 12.0 (0.0-44) 03/06/20 08:42 ABG Base Excess -7.3 mmol/L (-2.0-3.0) L 03/06/20 08:42 ABG Hemoglobin 7.7 gm/dl (12.0-16.0) L 03/06/20 08:42 ABG Carboxyhemoglobin 0.9 % (0.0-5.0) 03/06/20 08:42 ABG Methemoglobin 0.5 % (0.0-1.5) 03/06/20 08:42 Oxyhemoglobin 98.2 % (95.0-99.0) 03/06/20 08:42 FiO2 100 % 03/06/20 08:42 Sodium 140 mmol/L (137-145) 03/07/20 06:34 Potassium 4.9 mmol/L (3.6-5.0) 03/07/20 06:34 Chloride 110.3 mmol/L (98-107) H 03/07/20 06:34 Carbon Dioxide 14 mmol/L (22-30) L 03/07/20 06:34 Anion Gap 21 mmol/L 03/07/20 06:34 BUN 31 mg/dL (7-17) H 03/07/20 06:34 Creatinine 2.0 mg/dL (0.6-1.2) H 03/07/20 06:34 Estimated GFR 26 ml/min 03/07/20 06:34 BUN/Creatinine Ratio 16 % 03/07/20 06:34 Glucose 304 mg/dL (65-100) H 03/07/20 06:34 POC Glucose 199 (70-105) H 03/07/20 12:22 Lactic Acid 4.30 mmol/L (0.7-2.0) H* 03/06/20 14:35 Calcium 6.1 mg/dL (8.4-10.2) L 03/07/20 06:34 Phosphorus 6.90 mg/dL (2.5-4.5) H 03/05/20 11:18 Magnesium 1.80 mg/dL (1.7-2.3) 03/05/20 11:18 Ferritin 1335.0 ng/mL (10.0-200.0) H 03/05/20 11:20 Total Bilirubin < 0.20 mg/dL (0.1-1.2) 03/05/20 11:20 AST 18 units/L (5-40) 03/05/20 11:20 ALT 17 units/L (7-56) 03/05/20 11:20 Alkaline Phosphatase 142 units/L (35-129) H 03/05/20 11:20 Lactate Dehydrogenase 351 units/L (91-180) H 03/05/20 11:20 C-Reactive Protein 2.80 mg/dL (0.00-1.30) H 03/05/20 11:20 Total Protein 4.1 g/dL (6.3-8.2) L 03/05/20 11:20 Albumin 1.8 g/dL (3.9-5) L 03/05/20 11:20 Albumin/Globulin Ratio 0.8 % 03/05/20 11:20 Procalcitonin 31.30 ng/mL (<0.15) 03/05/20 11:20 Urine Color Yellow (Yellow) 03/06/20 Unknown Urine Turbidity Cloudy (Clear) 03/06/20 Unknown Urine pH 5.0 (5.0-7.0) 03/06/20 Unknown Ur Specific [place] 1.009 (1.003-1.030) 03/06/20 Unknown Urine Protein <15 mg/dl mg/dL (Negative) 03/06/20 Unknown Urine Glucose (UA) >=500 mg/dL (Negative) 03/06/20 Unknown Urine Ketones 20 mg/dL (Negative) 03/06/20 Unknown Urine Blood Sm (Negative) 03/06/20 Unknown Urine Nitrite Neg (Negative) 03/06/20 Unknown Urine Bilirubin Neg (Negative) 03/06/20 Unknown Urine Urobilinogen < 2.0 mg/dL (<2.0) 03/06/20 Unknown Ur Leukocyte Esterase Neg (Negative) 03/06/20 Unknown Urine WBC (Auto) 2.0 /HPF (0.0-6.0) 03/06/20 Unknown Urine RBC (Auto) > 182.0 /HPF (0.0-6.0) 03/06/20 Unknown Urine Bacteria (Auto) 1+ /HPF (Negative) 03/06/20 Unknown Urine Yeast (Budding) 3+ /HPF 03/06/20 Unknown Nasal Screen MRSA (PCR) Negative (Negative) 03/06/20 02:50 Coronavirus (PCR) Positive (Negative) A 03/05/20 Unknown Microbiology: Microbiology 03/05/20 11:20 Peripheral/Venous Blood Culture - Preliminary NO GROWTH AFTER 48 HOURS 03/05/20 11:20 Peripheral/Venous Blood Culture - Preliminary NO GROWTH AFTER 48 HOURS Verma/IV: Voiding Method Indwelling Catheter IV Catheter Type [Right Triple Lumen Cath Internal Jugular] IV Catheter Type [Right Leg] Intra-osseous IV Catheter Type [Left Leg] Intra-osseous Active Medications - Current Medications Current Medications: Generic Name Dose Route Start Last Admin Trade Name Freq PRN Reason Stop Dose Admin Dextrose 0 ml 03/05/20 12:09 D50w (25gm) Syringe IV Q30MIN PRN Hypoglycemia Protocol Enoxaparin Sodium 60 mg 03/06/20 11:00 03/07/20 09:31 Enoxaparin SUB-Q 60 mg Q24HR SHAHLA Administration Norepinephrine 4 mg in 250 mls @ 7.5 mls/hr 03/05/20 12:00 03/07/20 06:38 Levophed Drip 4 Mg/Ns 250 Ml IV 0 mcg/min TITR SHAHLA 0 mls/hr Titration Protocol 2 MCG/MIN Cefepime HCl 2 gm in 100 mls @ 200 mls/hr 03/06/20 11:00 03/07/20 09:30 Cefepime/Ns 2 Gm/100 Ml IV 200 mls/hr Q12HR SHAHLA Administration Dextrose/Sodium Chloride 1,000 mls @ 75 mls/hr 03/07/20 10:00 03/07/20 09:30 D5/0.45ns IV 75 mls/hr DIRECT SHAHLA Administration Insulin Human Isoph/Insulin Regular 15 unit 03/07/20 08:00 03/07/20 07:59 Humulin 70/30 SUB-Q 15 unit BIDDIAB SHAHLA Administration Insulin Human Lispro 0 unit 03/07/20 01:00 03/07/20 06:34 Humalog SUB-Q 6 unit Q6HR SHAHLA Administration Protocol Sodium Chloride 10 ml 03/05/20 22:00 03/07/20 09:31 Sodium Chloride Flush Syringe 10 Ml IV 10 ml BID SHAHLA Administration Sodium Chloride 10 ml 03/05/20 12:13 Sodium Chloride Flush Syringe 10 Ml IV PRN PRN LINE FLUSH Nutrition/Malnutrition Assess - Dietary Evaluation Nutrition/Malnutrition Findings: Nutrition Notes Start: 03/06/20 12:14 Freq: Status: Active Protocol: Document 03/06/20 12:14 LM (Rec: 03/06/20 12:36 LM [id number]) Nutrition Notes 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 Benitez score is 12. Pt has sacral and heel PUs. Pt is on the vent. pt was recently admitted for DKA and COVID-19 and weighed 42 kg. Burn Absent Trauma Absent Current % PO Negligible Minimum of two criteria No physical signs of malnutrition #2 Nutrition Diagnosis Increased nutrient needs ( specify in comment below) Comments: Protein Etiology wound healing As Evidenced by Signs and Symptoms pt with sacral and heel PU #1 Nutrition Diagnosis Inadequate oral intake Etiology Mechanical vent As Evidenced by Signs and Symptoms Pt NPO Is patient on ventilator? Yes Is Patient Ambulatory and/or Out of Bed No REE-([facility]-confined to bed) 1305.352 Calculation Used for Recommendations [facility] Additional Notes Protein: 77-128g (1.2-2g/kg) Fluid: 1ml/kcal Nutrition Intervention Change Diet Order: TF when medically feasible Nutrition Support: Nepro 1.8 at 35ml/hr Flush 150ml q4h Kcal 1,512 Protein (gm) 68 Fluid (mL) 611 Goal #1 Start TF when medically feasible Anticipated Discharge Needs: unable to determine at this time Follow-Up By: 03/08/20 Additional Comments F/U for TF consult/extubation, wt
[2020-03-07 17:27] LABS: Calcium 6.5 mg/dL (8.4-10.2)
[2020-03-07] MEDS: DEXTROSE 50% IN WATER (25GM) 50 ML SYRINGE IV PRN ×2 (17:57→20:58)
[2020-03-07] MEDS ORDERED: CALCIUM GLUCONATE 2,000 MG in SODIUM CHLORIDE 0.9% 100 ML IV ONE (18:30)
[2020-03-08] MEDS: DEXTROSE 50% IN WATER (25GM) 50 ML SYRINGE IV PRN (02:18)
[2020-03-08] MEDS: D5W/0.45% NACL 1,000 ML IV SCH ×2 (04:52→18:37)
[2020-03-08] MEDS: INSULIN LISPRO 100 UNIT/ML VIAL 3 mL SUB-Q SCH ×4 (05:24→18:00)
--- NOTE | 2020-03-08 06:18 | Progress Note ---
Assessment and Plan 54 y/o female with severe metabolic acidosis and acute respiratory failure 1. Pulm status stable, wean oxygen off. 2. IMS to adjust insulin needs while patient is NPO to avoid hypoglycemic episodes. 3. NPO until speech eval again 4. Renal failure is worsening , suggest renal consult 4. Long discussion with sister over the phone on earlier this week. Here in [place] are a Sister and a niece. She does have 3 brothers, one of whom is developmentally challenged. I have asked her to consider making MrsJordan Garcia an AND if she is not able to wake up and make the decision for herself. She is going to call the brothers and discuss with them to let us know. Overall prognosis is guarded to poor. Strongly suggest considering palliative care/hospice with this patient while at the intermediate Will sign off, call if questions. Subjective Date of service: 03/08/20 Principal diagnosis: Septic shock acute respiratory failure Interval history: Successful transfer out of the unit. Having some episodes of hypoglycemia. Gap remains closed. Failed swallow eval by speech so remains NPO Objective Vital Signs - 12hr 03/07/20 21:25 Temperature 97.8 F Pulse Rate 79 Respiratory 18 Rate Blood Pressure 121/78 O2 Sat by Pulse 99 Oximetry CBC and BMP: 03/05/20 11:20 03/07/20 12:00 ABG, PT/INR, D-dimer: ABG ABG pH 7.470 pH Units (7.350-7.450) H 03/06/20 08:42 ABG pCO2 21.5 mm Hg 03/06/20 08:42 ABG pO2 451.0 mm Hg (80.0-90.0) H 03/06/20 08:42 ABG O2 Saturation 99.6 % (95.0-99.0) H 03/06/20 08:42 PT/INR, D-dimer D-Dimer 1015.54 ng/mlDDU (0-234) H 03/05/20 11:20 Abnormal lab findings: Abnormal Labs 03/05/20 03/05/20 03/05/20 11:18 11:20 11:20 WBC 19.4 H RBC 2.48 L Hgb 7.4 L Hct 25.4 L MCV 103 H MCHC 29 L RDW 18.8 H Seg Neuts % (Manual) 95.0 H Lymphocytes % (Manual) 2.0 L Seg Neutrophils # Man 18.4 H Lymphocytes # (Manual) 0.4 L D-Dimer ABG pH ABG pO2 ABG HCO3 ABG O2 Saturation ABG Base Excess ABG Hemoglobin Oxyhemoglobin Sodium 133 L D Potassium Chloride 91.0 L Carbon Dioxide 3 L* D BUN 32 H Creatinine 1.6 H D Glucose 1011 H* POC Glucose Lactic Acid Calcium 7.1 L Phosphorus 6.90 H Ferritin Alkaline Phosphatase 142 H Lactate Dehydrogenase C-Reactive Protein Total Protein 4.1 L Albumin 1.8 L Coronavirus (PCR) 03/05/20 03/05/20 03/05/20 11:20 11:20 11:20 WBC RBC Hgb Hct MCV MCHC RDW Seg Neuts % (Manual) Lymphocytes % (Manual) Seg Neutrophils # Man Lymphocytes # (Manual) D-Dimer 1015.54 H ABG pH ABG pO2 ABG HCO3 ABG O2 Saturation ABG Base Excess ABG Hemoglobin Oxyhemoglobin Sodium Potassium Chloride Carbon Dioxide BUN Creatinine Glucose 1013 H* POC Glucose Lactic Acid 7.60 H* Calcium Phosphorus Ferritin Alkaline Phosphatase Lactate Dehydrogenase 351 H C-Reactive Protein 2.80 H Total Protein Albumin Coronavirus (PCR) 03/05/20 03/05/20 03/05/20 11:20 11:20 14:35 WBC RBC Hgb Hct MCV MCHC RDW Seg Neuts % (Manual) Lymphocytes % (Manual) Seg Neutrophils # Man Lymphocytes # (Manual) D-Dimer ABG pH 7.039 L* ABG pO2 330.9 H ABG HCO3 3.4 L ABG O2 Saturation ABG Base Excess -25.2 L ABG Hemoglobin 9.0 L Oxyhemoglobin Sodium Potassium Chloride 110.6 H Carbon Dioxide 17 L D BUN 29 H Creatinine 1.8 H Glucose POC Glucose Lactic Acid Calcium 6.2 L Phosphorus Ferritin 1335.0 H Alkaline Phosphatase Lactate Dehydrogenase C-Reactive Protein Total Protein Albumin Coronavirus (PCR) 03/05/20 03/05/20 03/05/20 15:04 15:25 15:43 WBC RBC Hgb Hct MCV MCHC RDW Seg Neuts % (Manual) Lymphocytes % (Manual) Seg Neutrophils # Man Lymphocytes # (Manual) D-Dimer ABG pH 6.960 L* ABG pO2 62.5 L ABG HCO3 4.1 L ABG O2 Saturation 76.5 L ABG Base Excess -25.3 L ABG Hemoglobin 5.2 L Oxyhemoglobin 75.1 L Sodium 134 L D Potassium Chloride 95.9 L Carbon Dioxide 3 L* D BUN 30 H Creatinine 1.5 H Glucose 897 H* POC Glucose > 500 H Lactic Acid Calcium 7.2 L D Phosphorus Ferritin Alkaline Phosphatase Lactate Dehydrogenase C-Reactive Protein Total Protein Albumin Coronavirus (PCR) 03/05/20 03/05/20 03/05/20 15:43 19:48 20:30 WBC RBC Hgb Hct MCV MCHC RDW Seg Neuts % (Manual) Lymphocytes % (Manual) Seg Neutrophils # Man Lymphocytes # (Manual) D-Dimer ABG pH ABG pO2 ABG HCO3 ABG O2 Saturation ABG Base Excess ABG Hemoglobin Oxyhemoglobin Sodium Potassium 2.7 L* D Chloride Carbon Dioxide 6 L* BUN 30 H Creatinine 1.6 H Glucose 631 H* 577 H* POC Glucose Lactic Acid 5.50 H* Calcium 6.4 L Phosphorus Ferritin Alkaline Phosphatase Lactate Dehydrogenase C-Reactive Protein Total Protein Albumin Coronavirus (PCR) 03/05/20 03/06/20 03/06/20 Unknown 00:12 01:44 WBC RBC Hgb Hct MCV MCHC RDW Seg Neuts % (Manual) Lymphocytes % (Manual) Seg Neutrophils # Man Lymphocytes # (Manual) D-Dimer ABG pH ABG pO2 ABG HCO3 ABG O2 Saturation ABG Base Excess ABG Hemoglobin Oxyhemoglobin Sodium Potassium Chloride Carbon Dioxide BUN Creatinine Glucose POC Glucose 346 H 263 H Lactic Acid Calcium Phosphorus Ferritin Alkaline Phosphatase Lactate Dehydrogenase C-Reactive Protein Total Protein Albumin Coronavirus (PCR) Positive A 03/06/20 03/06/20 03/06/20 02:09 03:39 04:05 WBC RBC Hgb Hct MCV MCHC RDW Seg Neuts % (Manual) Lymphocytes % (Manual) Seg Neutrophils # Man Lymphocytes # (Manual) D-Dimer ABG pH ABG pO2 ABG HCO3 ABG O2 Saturation ABG Base Excess ABG Hemoglobin Oxyhemoglobin Sodium Potassium Chloride Carbon Dioxide BUN Creatinine Glucose POC Glucose 220 H 178 H 162 H Lactic Acid Calcium Phosphorus Ferritin Alkaline Phosphatase Lactate Dehydrogenase C-Reactive Protein Total Protein Albumin Coronavirus (PCR) 03/06/20 03/06/20 03/06/20 05:13 06:13 06:44 WBC RBC Hgb Hct MCV MCHC RDW Seg Neuts % (Manual) Lymphocytes % (Manual) Seg Neutrophils # Man Lymphocytes # (Manual) D-Dimer ABG pH ABG pO2 ABG HCO3 ABG O2 Saturation ABG Base Excess ABG Hemoglobin Oxyhemoglobin Sodium Potassium Chloride Carbon Dioxide BUN Creatinine Glucose POC Glucose 129 H 120 H 142 H Lactic Acid Calcium Phosphorus Ferritin Alkaline Phosphatase Lactate Dehydrogenase C-Reactive Protein Total Protein Albumin Coronavirus (PCR) 03/06/20 03/06/20 03/06/20 07:35 07:35 07:52 WBC RBC Hgb Hct MCV MCHC RDW Seg Neuts % (Manual) Lymphocytes % (Manual) Seg Neutrophils # Man Lymphocytes # (Manual) D-Dimer ABG pH ABG pO2 ABG HCO3 ABG O2 Saturation ABG Base Excess ABG Hemoglobin Oxyhemoglobin Sodium Potassium 3.3 L D Chloride 108.7 H Carbon Dioxide 16 L D BUN 29 H Creatinine 1.7 H Glucose 122 H POC Glucose 131 H Lactic Acid 6.90 H* Calcium 6.4 L Phosphorus Ferritin Alkaline Phosphatase Lactate Dehydrogenase C-Reactive Protein Total Protein Albumin Coronavirus (PCR) 03/06/20 03/06/20 03/06/20 08:42 12:35 13:55 WBC RBC Hgb Hct MCV MCHC RDW Seg Neuts % (Manual) Lymphocytes % (Manual) Seg Neutrophils # Man Lymphocytes # (Manual) D-Dimer ABG pH 7.470 H ABG pO2 451.0 H ABG HCO3 15.3 L ABG O2 Saturation 99.6 H ABG Base Excess -7.3 L ABG Hemoglobin 7.7 L Oxyhemoglobin Sodium Potassium Chloride Carbon Dioxide BUN Creatinine Glucose POC Glucose 132 H 130 H Lactic Acid Calcium Phosphorus Ferritin Alkaline Phosphatase Lactate Dehydrogenase C-Reactive Protein Total Protein Albumin Coronavirus (PCR) 03/06/20 03/06/20 03/06/20 14:35 14:52 15:42 WBC RBC Hgb Hct MCV MCHC RDW Seg Neuts % (Manual) Lymphocytes % (Manual) Seg Neutrophils # Man Lymphocytes # (Manual) D-Dimer ABG pH ABG pO2 ABG HCO3 ABG O2 Saturation ABG Base Excess ABG Hemoglobin Oxyhemoglobin Sodium Potassium Chloride Carbon Dioxide BUN Creatinine Glucose POC Glucose 136 H 139 H Lactic Acid 4.30 H* Calcium Phosphorus Ferritin Alkaline Phosphatase Lactate Dehydrogenase C-Reactive Protein Total Protein Albumin Coronavirus (PCR) 03/06/20 03/06/20 03/06/20 17:11 18:30 18:41 WBC RBC Hgb Hct MCV MCHC RDW Seg Neuts % (Manual) Lymphocytes % (Manual) Seg Neutrophils # Man Lymphocytes # (Manual) D-Dimer ABG pH ABG pO2 ABG HCO3 ABG O2 Saturation ABG Base Excess ABG Hemoglobin Oxyhemoglobin Sodium Potassium Chloride 111.1 H Carbon Dioxide 17 L BUN 28 H Creatinine 1.8 H Glucose POC Glucose 111 H 115 H Lactic Acid Calcium 6.0 L Phosphorus Ferritin Alkaline Phosphatase Lactate Dehydrogenase C-Reactive Protein Total Protein Albumin Coronavirus (PCR) 03/06/20 03/06/20 03/06/20 19:26 20:29 23:51 WBC RBC Hgb Hct MCV MCHC RDW Seg Neuts % (Manual) Lymphocytes % (Manual) Seg Neutrophils # Man Lymphocytes # (Manual) D-Dimer ABG pH ABG pO2 ABG HCO3 ABG O2 Saturation ABG Base Excess ABG Hemoglobin Oxyhemoglobin Sodium Potassium Chloride Carbon Dioxide BUN Creatinine Glucose POC Glucose 119 H 106 H 280 H Lactic Acid Calcium Phosphorus Ferritin Alkaline Phosphatase Lactate Dehydrogenase C-Reactive Protein Total Protein Albumin Coronavirus (PCR) 03/07/20 03/07/20 03/07/20 00:00 05:21 06:34 WBC RBC Hgb Hct MCV MCHC RDW Seg Neuts % (Manual) Lymphocytes % (Manual) Seg Neutrophils # Man Lymphocytes # (Manual) D-Dimer ABG pH ABG pO2 ABG HCO3 ABG O2 Saturation ABG Base Excess ABG Hemoglobin Oxyhemoglobin Sodium Potassium Chloride 108.3 H 110.3 H Carbon Dioxide 16 L 14 L BUN 29 H 31 H Creatinine 1.8 H 2.0 H Glucose 308 H 304 H POC Glucose 326 H Lactic Acid Calcium 6.1 L 6.1 L Phosphorus Ferritin Alkaline Phosphatase Lactate Dehydrogenase C-Reactive Protein Total Protein Albumin Coronavirus (PCR) 03/07/20 03/07/20 03/07/20 12:00 12:22 18:10 WBC RBC Hgb Hct MCV MCHC RDW Seg Neuts % (Manual) Lymphocytes % (Manual) Seg Neutrophils # Man Lymphocytes # (Manual) D-Dimer ABG pH ABG pO2 ABG HCO3 ABG O2 Saturation ABG Base Excess ABG Hemoglobin Oxyhemoglobin Sodium Potassium Chloride 110.9 H Carbon Dioxide 17 L BUN 32 H Creatinine 2.2 H Glucose 25 L* POC Glucose 199 H < 40 L Lactic Acid Calcium 6.5 L Phosphorus Ferritin Alkaline Phosphatase Lactate Dehydrogenase C-Reactive Protein Total Protein Albumin Coronavirus (PCR) 03/07/20 03/07/20 03/07/20 19:15 21:09 21:38 WBC RBC Hgb Hct MCV MCHC RDW Seg Neuts % (Manual) Lymphocytes % (Manual) Seg Neutrophils # Man Lymphocytes # (Manual) D-Dimer ABG pH ABG pO2 ABG HCO3 ABG O2 Saturation ABG Base Excess ABG Hemoglobin Oxyhemoglobin Sodium Potassium Chloride Carbon Dioxide BUN Creatinine Glucose POC Glucose 54 L < 40 L 107 H Lactic Acid Calcium Phosphorus Ferritin Alkaline Phosphatase Lactate Dehydrogenase C-Reactive Protein Total Protein Albumin Coronavirus (PCR) 03/08/20 03/08/20 03/08/20 02:28 03:13 05:02 WBC RBC Hgb Hct MCV MCHC RDW Seg Neuts % (Manual) Lymphocytes % (Manual) Seg Neutrophils # Man Lymphocytes # (Manual) D-Dimer ABG pH ABG pO2 ABG HCO3 ABG O2 Saturation ABG Base Excess ABG Hemoglobin Oxyhemoglobin Sodium Potassium Chloride Carbon Dioxide BUN Creatinine Glucose POC Glucose < 40 L 163 H 119 H Lactic Acid Calcium Phosphorus Ferritin Alkaline Phosphatase Lactate Dehydrogenase C-Reactive Protein Total Protein Albumin Coronavirus (PCR)
[2020-03-08 08:26] LABS: Basophils % (Auto) 0.4 % (0.0-1.8); Eosinophils # (Auto) 0.1 K/mm3 (0.0-0.4); Eosinophils % (Auto) 0.8 % (0.0-4.3); Hemoglobin 6.5 gm/dl (10.1-14.3); Lymphocytes # (Auto) 1.4 K/mm3 (1.2-5.4); Lymphocytes % (Auto) 21.6 % (13.4-35.0); Mean Corpuscular HGB Conc 35 % (30-34); Mean Corpuscular Volume 87 fl (79-97); Monocytes # (Auto) 0.4 K/mm3 (0.0-0.8); Monocytes % (Auto) 6.8 % (0.0-7.3); Red Blood Count 2.13 M/mm3 (3.65-5.03)
[2020-03-08 08:29] LABS: Albumin 1.7 g/dL (3.9-5); Calcium 6.9 mg/dL (8.4-10.2)
[2020-03-08 08:44] LABS: Hematocrit 18.6 % (30.3-42.9); Platelet Count 91 K/mm3 (140-440)
[2020-03-08] MEDS ORDERED: LIPASE 10,500/PROTEASE 25,000/AMYLASE 43,750 (UNITS) DR CAP FEEDTUBE PRN (09:00)
[2020-03-08] MEDS ORDERED: SODIUM BICARBONATE 325 MG TAB FEEDTUBE PRN (09:00)
[2020-03-08] MEDS ORDERED: SIMPLE SYRUP 15 ML FEEDTUBE PRN ×2 (09:00)
[2020-03-08] MEDS: ENOXAPARIN 60 MG/0.6 ML INJ SUB-Q SCH (09:40)
[2020-03-08] MEDS: CEFEPIME/NS 2 GM/100 ML 2 GM/100 ML BAG IV SCH (09:40)
[2020-03-08] MEDS ORDERED: SODIUM CHLORIDE 0.9% 500 ML 500 ML IV SCH (11:00)
--- NOTE | 2020-03-08 11:39 | Progress Note ---
Assessment and Plan Assessment and plan: Septic shock Patient with septic shock secondary to UTI and pneumonia. Patient has leukocytosis as well as fever. Currently on pressor support. Patient did improve somewhat was able to extubate today. Patient DKA also improved with treatment of underlying etiology of infection. Responding pressor support and aggressive IV volume replacement. Continue cefepime and vancomycin. Follow any ID recommend further ID recommendations. Acute hypoxemic respiratory failure Patient now extubated most likely was secondary to infection and uremia metaboli c acidosis. Acute kidney injury (RACH) with acute tubular necrosis (ATN) Patient with acute kidney injury. Patient known to me from [place]. Has had underlying chronic kidney disease. So most likely acute on chronic. Will need to follow-up at baseline. DKA (diabetic ketoacidoses) Patient DKA has resolved now most likely underlying sepsis infection. Will place patient on 70/30 insulin 15 units a.m. 10 units p.m. DVT prophylaxis Hyponatremia syndrome Hyponatremia has resolved Toxic Metabolic encephalopathy Metabolic encephalopathy multifactorial underlying dementia exacerbated by sepsis and hypoxemia. COVID 19 Pneumonia Patient is positive for COVID-19 infection. 03/08/2020. Patient with hypoglycemia yesterday and insulin schedule discontinued. Dobbhoff tube placement for tube feedings. Speech therapy reports high aspiration risk. Pulmonary had discussion with family consider ENT. Overall prognosis is guarded to poor. Strongly suggest considering palliative care/hospice with this patient while at the long-term. Patient with hemoglobin 6.5. Type and cross and transfuse 1 unit PRBCs. Check iron studies. History Interval history: 54-year-old with acute metabolic encephalopathy multifactorial DKA and septic shock and acute respiratory failure. Hospitalist Physical - Constitutional Vitals: Temp Pulse Resp BP Pulse Ox 98.0 F 69 18 115/77 96 03/08/20 05:30 03/08/20 05:30 03/08/20 05:30 03/08/20 05:30 03/08/20 08:56 General appearance: Present: mild distress - EENT Eyes: Present: PERRL, EOM intact ENT: hearing intact, clear oral mucosa, dentition normal - Neck Neck: Present: supple, normal ROM - Respiratory Respiratory effort: normal Respiratory: bilateral: CTA - Cardiovascular Rhythm: regular Heart Sounds: Present: S1 & S2. Absent: gallop, rub - Extremities Extremities: no ischemia, No edema, Full ROM - Abdominal General gastrointestinal: soft, non-tender, non-distended, normal bowel sounds - Integumentary Integumentary: Present: clear, warm, dry - Neurologic Neurologic: CNII-XII intact, moves all extremities Results - Labs CBC & Chem 7: 03/08/20 07:39 03/08/20 06:55 Labs: Laboratory Last Values WBC 6.3 K/mm3 (4.5-11.0) 03/08/20 07:39 RBC 2.13 M/mm3 (3.65-5.03) L 03/08/20 07:39 Hgb 6.5 gm/dl (10.1-14.3) L 03/08/20 07:39 Hct 18.6 % (30.3-42.9) L* D 03/08/20 07:39 MCV 87 fl (79-97) 03/08/20 07:39 MCH 31 pg (28-32) 03/08/20 07:39 MCHC 35 % (30-34) H 03/08/20 07:39 RDW 17.0 % (13.2-15.2) H 03/08/20 07:39 Plt Count 91 K/mm3 (140-440) L 03/08/20 07:39 Lymph % (Auto) 21.6 % (13.4-35.0) 03/08/20 07:39 [place] % (Auto) 6.8 % (0.0-7.3) 03/08/20 07:39 Eos % (Auto) 0.8 % (0.0-4.3) 03/08/20 07:39 Baso % (Auto) 0.4 % (0.0-1.8) 03/08/20 07:39 Lymph # 1.4 K/mm3 (1.2-5.4) 03/08/20 07:39 [place] # 0.4 K/mm3 (0.0-0.8) 03/08/20 07:39 Eos # 0.1 K/mm3 (0.0-0.4) 03/08/20 07:39 Baso # 0.0 K/mm3 (0.0-0.1) 03/08/20 07:39 Add Manual Diff Complete 03/05/20 11:20 Total Counted 100 03/05/20 11:20 Seg Neutrophils % 70.4 % (40.0-70.0) H 03/08/20 07:39 Seg Neuts % (Manual) 95.0 % (40.0-70.0) H 03/05/20 11:20 Band Neutrophils % 0 % 03/05/20 11:20 Lymphocytes % (Manual) 2.0 % (13.4-35.0) L 03/05/20 11:20 Reactive Lymphs % (Man) 0 % 03/05/20 11:20 Monocytes % (Manual) 3.0 % (0.0-7.3) 03/05/20 11:20 Eosinophils % (Manual) 0 % (0.0-4.3) 03/05/20 11:20 Basophils % (Manual) 0 % (0.0-1.8) 03/05/20 11:20 Metamyelocytes % 0 % 03/05/20 11:20 Myelocytes % 0 % 03/05/20 11:20 Promyelocytes % 0 % 03/05/20 11:20 Blast Cells % 0 % 03/05/20 11:20 Nucleated RBC % Not Reportable 03/05/20 11:20 Seg Neutrophils # 4.4 K/mm3 (1.8-7.7) 03/08/20 07:39 Seg Neutrophils # Man 18.4 K/mm3 (1.8-7.7) H 03/05/20 11:20 Band Neutrophils # 0.0 K/mm3 03/05/20 11:20 Lymphocytes # (Manual) 0.4 K/mm3 (1.2-5.4) L 03/05/20 11:20 Abs React Lymphs (Man) 0.0 K/mm3 03/05/20 11:20 Monocytes # (Manual) 0.6 K/mm3 (0.0-0.8) 03/05/20 11:20 Eosinophils # (Manual) 0.0 K/mm3 (0.0-0.4) 03/05/20 11:20 Basophils # (Manual) 0.0 K/mm3 (0.0-0.1) 03/05/20 11:20 Metamyelocytes # 0.0 K/mm3 03/05/20 11:20 Myelocytes # 0.0 K/mm3 03/05/20 11:20 Promyelocytes # 0.0 K/mm3 03/05/20 11:20 Blast Cells # 0.0 K/mm3 03/05/20 11:20 WBC Morphology Not Reportable 03/05/20 11:20 Hypersegmented Neuts Not Reportable 03/05/20 11:20 Hyposegmented Neuts Not Reportable 03/05/20 11:20 Hypogranular Neuts Not Reportable 03/05/20 11:20 Smudge Cells Not Reportable 03/05/20 11:20 Toxic Granulation Not Reportable 03/05/20 11:20 Toxic Vacuolation Not Reportable 03/05/20 11:20 Dohle Bodies Not Reportable 03/05/20 11:20 Pelger-Huet Anomaly Not Reportable 03/05/20 11:20 Jamia Rods Not Reportable 03/05/20 11:20 Platelet Estimate Consistent w auto 03/05/20 11:20 Clumped Platelets Not Reportable 03/05/20 11:20 Plt Clumps, EDTA Not Reportable 03/05/20 11:20 Large Platelets Not Reportable 03/05/20 11:20 Giant Platelets Not Reportable 03/05/20 11:20 Platelet Satelliting Not Reportable 03/05/20 11:20 Plt Morphology Comment Not Reportable 03/05/20 11:20 RBC Morphology Not Reportable 03/05/20 11:20 Dimorphic RBCs Not Reportable 03/05/20 11:20 Polychromasia Not Reportable 03/05/20 11:20 Hypochromasia Not Reportable 03/05/20 11:20 Poikilocytosis Not Reportable 03/05/20 11:20 Anisocytosis 1+ 03/05/20 11:20 Microcytosis Few 03/05/20 11:20 Macrocytosis Few 03/05/20 11:20 Spherocytes Not Reportable 03/05/20 11:20 Pappenheimer Bodies Not Reportable 03/05/20 11:20 Sickle Cells Not Reportable 03/05/20 11:20 Target Cells Not Reportable 03/05/20 11:20 Tear Drop Cells Not Reportable 03/05/20 11:20 Ovalocytes Not Reportable 03/05/20 11:20 Helmet Cells Not Reportable 03/05/20 11:20 Galvan-Ulmer Bodies Not Reportable 03/05/20 11:20 [place] Rings Not Reportable 03/05/20 11:20 [place] Cells Not Reportable 03/05/20 11:20 Bite Cells Not Reportable 03/05/20 11:20 Crenated Cell Not Reportable 03/05/20 11:20 Elliptocytes Not Reportable 03/05/20 11:20 Acanthocytes (Spur) Not Reportable 03/05/20 11:20 Rouleaux Not Reportable 03/05/20 11:20 Hemoglobin C Crystals Not Reportable 03/05/20 11:20 Schistocytes Not Reportable 03/05/20 11:20 Malaria parasites Not Reportable 03/05/20 11:20 Felice Bodies Not Reportable 03/05/20 11:20 Hem Pathologist Commnt No 03/05/20 11:20 D-Dimer 1015.54 ng/mlDDU (0-234) H 03/05/20 11:20 ABG pH 7.470 pH Units (7.350-7.450) H 03/06/20 08:42 ABG pCO2 21.5 mm Hg 03/06/20 08:42 ABG pO2 451.0 mm Hg (80.0-90.0) H 03/06/20 08:42 ABG HCO3 15.3 mmol/L (20.0-26.0) L 03/06/20 08:42 ABG O2 Saturation 99.6 % (95.0-99.0) H 03/06/20 08:42 ABG O2 Content 12.0 (0.0-44) 03/06/20 08:42 ABG Base Excess -7.3 mmol/L (-2.0-3.0) L 03/06/20 08:42 ABG Hemoglobin 7.7 gm/dl (12.0-16.0) L 03/06/20 08:42 ABG Carboxyhemoglobin 0.9 % (0.0-5.0) 03/06/20 08:42 ABG Methemoglobin 0.5 % (0.0-1.5) 03/06/20 08:42 Oxyhemoglobin 98.2 % (95.0-99.0) 03/06/20 08:42 FiO2 100 % 03/06/20 08:42 Sodium 139 mmol/L (137-145) 03/08/20 06:55 Potassium 4.4 mmol/L (3.6-5.0) 03/08/20 06:55 Chloride 111.8 mmol/L (98-107) H 03/08/20 06:55 Carbon Dioxide 17 mmol/L (22-30) L 03/08/20 06:55 Anion Gap 15 mmol/L 03/08/20 06:55 BUN 33 mg/dL (7-17) H 03/08/20 06:55 Creatinine 2.4 mg/dL (0.6-1.2) H 03/08/20 06:55 Estimated GFR 21 ml/min 03/08/20 06:55 BUN/Creatinine Ratio 14 % 03/08/20 06:55 Glucose 140 mg/dL (65-100) H 03/08/20 06:55 Glucose 144 mg/dL (65-100) H 03/08/20 06:55 POC Glucose 119 (70-105) H 03/08/20 05:02 Lactic Acid 4.30 mmol/L (0.7-2.0) H* 03/06/20 14:35 Calcium 6.9 mg/dL (8.4-10.2) L 03/08/20 06:55 Phosphorus 6.90 mg/dL (2.5-4.5) H 03/05/20 11:18 Magnesium 1.80 mg/dL (1.7-2.3) 03/05/20 11:18 Ferritin 1335.0 ng/mL (10.0-200.0) H 03/05/20 11:20 Total Bilirubin 0.20 mg/dL (0.1-1.2) 03/08/20 06:55 AST 27 units/L (5-40) 03/08/20 06:55 ALT 23 units/L (7-56) 03/08/20 06:55 Alkaline Phosphatase 135 units/L (35-129) H 03/08/20 06:55 Lactate Dehydrogenase 351 units/L (91-180) H 03/05/20 11:20 C-Reactive Protein 2.80 mg/dL (0.00-1.30) H 03/05/20 11:20 Total Protein 3.9 g/dL (6.3-8.2) L 03/08/20 06:55 Albumin 1.7 g/dL (3.9-5) L 03/08/20 06:55 Albumin/Globulin Ratio 0.8 % 03/08/20 06:55 Procalcitonin 31.30 ng/mL (<0.15) 03/05/20 11:20 Urine Color Yellow (Yellow) 03/06/20 Unknown Urine Turbidity Cloudy (Clear) 03/06/20 Unknown Urine pH 5.0 (5.0-7.0) 03/06/20 Unknown Ur Specific [place] 1.009 (1.003-1.030) 03/06/20 Unknown Urine Protein <15 mg/dl mg/dL (Negative) 03/06/20 Unknown Urine Glucose (UA) >=500 mg/dL (Negative) 03/06/20 Unknown Urine Ketones 20 mg/dL (Negative) 03/06/20 Unknown Urine Blood Sm (Negative) 03/06/20 Unknown Urine Nitrite Neg (Negative) 03/06/20 Unknown Urine Bilirubin Neg (Negative) 03/06/20 Unknown Urine Urobilinogen < 2.0 mg/dL (<2.0) 03/06/20 Unknown Ur Leukocyte Esterase Neg (Negative) 03/06/20 Unknown Urine WBC (Auto) 2.0 /HPF (0.0-6.0) 03/06/20 Unknown Urine RBC (Auto) > 182.0 /HPF (0.0-6.0) 03/06/20 Unknown Urine Bacteria (Auto) 1+ /HPF (Negative) 03/06/20 Unknown Urine Yeast (Budding) 3+ /HPF 03/06/20 Unknown Nasal Screen MRSA (PCR) Negative (Negative) 03/06/20 02:50 Coronavirus (PCR) Positive (Negative) A 03/05/20 Unknown Microbiology: Microbiology 03/05/20 11:20 Peripheral/Venous Blood Culture - Preliminary NO GROWTH AFTER 48 HOURS 03/05/20 11:20 Peripheral/Venous Blood Culture - Preliminary NO GROWTH AFTER 48 HOURS Verma/IV: Voiding Method Indwelling Catheter IV Catheter Type [Right Triple Lumen Cath Internal Jugular] IV Catheter Type [Right Leg] Intra-osseous IV Catheter Type [Left Leg] Intra-osseous Active Medications - Current Medications Current Medications: Generic Name Dose Route Start Last Admin Trade Name Freq PRN Reason Stop Dose Admin Lipase/Protease/Amylase 1 each 03/08/20 09:[address] 10,500 Unit FEEDTUBE PRN PRN For Clogged Feeding Tube Dextrose 0 ml 03/05/20 12:09 03/08/20 02:18 D50w (25gm) Syringe IV 50 ml Q30MIN PRN Administration Hypoglycemia Protocol Dextrose/Sodium Chloride 1,000 mls @ 75 mls/hr 03/07/20 10:00 03/08/20 04:52 D5/0.45ns IV 75 mls/hr DIRECT SHAHLA Administration Sodium Chloride 500 mls @ 0 mls/hr 03/08/20 11:00 Nacl 0.9% 500 Ml IV 03/08/20 18:00 ONCE SHAHLA As Directed Insulin Human Lispro 0 unit 03/07/20 01:00 03/08/20 05:24 Humalog SUB-Q Not Given Q6HR SHAHLA Protocol Simple Syrup 15 ml 03/08/20 09:00 Simple Syrup FEEDTUBE PRN PRN Hypoglycemia Simple Syrup 30 ml 03/08/20 09:00 Simple Syrup FEEDTUBE PRN PRN Hypoglycemia Sodium Bicarbonate 325 mg 03/08/20 09:00 Sodium Bicarbonate FEEDTUBE PRN PRN For Clogged Feeding Tube Sodium Chloride 10 ml 03/05/20 22:00 03/08/20 09:40 Sodium Chloride Flush Syringe 10 Ml IV 10 ml BID SHAHLA Administration Sodium Chloride 10 ml 03/05/20 12:13 Sodium Chloride Flush Syringe 10 Ml IV PRN PRN LINE FLUSH Nutrition/Malnutrition Assess - Dietary Evaluation Nutrition/Malnutrition Findings: Nutrition Notes Start: 03/06/20 12:14 Freq: Status: Active Protocol: Document 03/08/20 08:43 LM (Rec: 03/08/20 08:51 LM [id number]) Nutrition Notes Need for Assessment generated from: MD Order Initial or Follow up Reassessment Current Diagnosis Acute Kidney Injury,Decubitus( Pressure Ulcer),Diabetes, Sepsis,Respiratory Failure, Hyperlipidemia Other Pertinent Diagnosis dementia, debility, encephalopathy, heel and sacral PU Current Diet NPO Labs/Tests BUN 33 Cr 2.4 Pertinent Medications D5NS at 75ml/hr Height 5 ft 3 in Weight 63.5 kg [place] Body Weight (kg) 52.27 BMI 24.7 Weight Status Appropriate Subjective/Other Information MD consult for TF. Pt has been extubated and failed SCIENCE TECHNICIAN eval . Burn Absent Trauma Absent Current % PO Negligible Minimum of two criteria No physical signs of malnutrition #2 Nutrition Diagnosis Increased nutrient needs ( specify in comment below) Diagnosis Progress(for reassessment Continues documentation) #1 Nutrition Diagnosis Inadequate oral intake Etiology failed SCIENCE TECHNICIAN eval Diagnosis Progress(for reassessment Continues documentation) Is patient on ventilator? No Is Patient Ambulatory and/or Out of Bed No REE-([facility]-confined to bed) [phone] Calculation Used for Recommendations [facility] Additional Notes Protein: 51-96g (0.8-1.5g/kg) RACH and wounds Fluid: 1ml/kcal Nutrition Intervention Change Diet Order: TF Nutrition Support: Nepro 1.8 at 35ml/hr Flush 150ml q4h Kcal 1,512 Protein (gm) 68 Fluid (mL) 611 Goal #1 TF start/toleranc Anticipated Discharge Needs: unable to determine at this time Follow-Up By: 03/11/20 Additional Comments F/U for TF start/tolerance
--- NOTE | 2020-03-08 12:10 | XRay Report ---
ABDOMEN 1 VIEW(S) INDICATION / CLINICAL INFORMATION: tube placement. COMPARISON: 03/05/2020 FINDINGS: TUBES / LINES: The nasogastric tube has been removed. A feeding tube is been inserted which terminate s in the proximal stomach. Advancement by at least 10 cm is recommended. BOWEL GAS PATTERN: No significant abnormality. FREE AIR / EXTRALUMINAL GAS: None seen. ADDITIONAL FINDINGS: No significant additional findings. IMPRESSION: The feeding tube terminates in the proximal stomach. Advancement is recommended. Signer Name: Lauro Acevedo Jr, MD Signed: 03/08/2020 12:05 PM Workstation Name: [id number]
--- NOTE | 2020-03-08 12:53 | Consultation ---
History of Present Illness - Reason for Consult Consult date: 03/08/20 acute renal failure - History of Present Illness The patient is a 54 YO female from [facility] with history significant for DM, HLD, Vascular Dementia and Debility who presented to [facility] ED 03/05/20 for evaluation of respiratory distress. Pt is nonverbal and unable to provide any history. Pt was transported to ED by EMS. Evaluation in the ED patient was found to have sepsis complicated by shock, acute hypoxemic respiratory failure and DKA. Patient intubated in the ED. Patient was admitted to ICU. She is also COVID-19 positive. Labs today with Creatinine 2.4. Nephrology was consulted for further evaluation. Past History Past Medical History: diabetes, hypertension, hyperlipidemia, other (See HPI) Past Surgical History: No surgical history, Other (Reviewed) Social history: single. denies: smoking, alcohol abuse, prescription drug abuse Family history: hypertension Medications and Allergies Allergies Allergy/AdvReac Type Severity Reaction Status Date / Time No Known Allergies Allergy Verified 02/26/20 10:24 Home Medications Medication Instructions Recorded Confirmed Last Taken Type Citalopram [Celexa] 20 mg PO QDAY 01/25/20 03/06/20 Unknown History Pravastatin [Pravachol] 40 mg PO QHS 01/25/20 03/06/20 Unknown History Acetaminophen [Mapap] 650 mg PO BID PRN 02/26/20 03/06/20 Unknown History Ascorbic Acid [Vitamin C with Chetna 500 mg PO DAILY 02/26/20 03/06/20 Unknown History Hips] Glimepiride [Amaryl] 4 mg PO QAM 02/26/20 03/06/20 Unknown History Insulin Lispro [Humalog] 5 units SQ AC 02/26/20 03/06/20 Unknown History Multivit-Min/Ferrous Fumarate 15 mg PO DAILY 02/26/20 03/06/20 Unknown History [Multivitamin with Minerals Tab] Apixaban [Eliquis] 2.5 mg PO BID #30 tablet 03/01/20 03/06/20 Unknown Rx Insulin Glargine [Lantus VIAL] 15 units SUB-Q BID #100 units 03/01/20 03/06/20 Unknown Rx levoFLOXacin [Levaquin TAB] 500 mg PO QDAY #3 tablet 03/01/20 03/06/20 Unknown Rx Active Meds: Active Medications Lipase/Protease/Amylase (Pancreaze 10,500 Unit) 1 each FEEDTUBE PRN PRN PRN Reason: For Clogged Feeding Tube Dextrose (D50w (25gm) Syringe) 0 ml IV Q30MIN PRN; Protocol PRN Reason: Hypoglycemia Last Admin: 03/08/20 02:18 Dose: 50 ml Documented by: Dextrose/Sodium Chloride (D5/0.45ns) 1,000 mls @ 75 mls/hr IV DIRECT SHAHLA Last Admin: 03/08/20 04:52 Dose: 75 mls/hr Documented by: Sodium Chloride (Nacl 0.9% 500 Ml) 500 mls @ 0 mls/hr IV ONCE SHAHLA Stop: 03/08/20 18:00 Insulin Human Lispro (Humalog) 0 unit SUB-Q Q6HR SHAHLA; Protocol Last Admin: 03/08/20 05:24 Dose: Not Given Documented by: Simple Syrup (Simple Syrup) 15 ml FEEDTUBE PRN PRN PRN Reason: Hypoglycemia Simple Syrup (Simple Syrup) 30 ml FEEDTUBE PRN PRN PRN Reason: Hypoglycemia Sodium Bicarbonate (Sodium Bicarbonate) 325 mg FEEDTUBE PRN PRN PRN Reason: For Clogged Feeding Tube Sodium Chloride (Sodium Chloride Flush Syringe 10 Ml) 10 ml IV BID SHAHLA Last Admin: 03/08/20 09:40 Dose: 10 ml Documented by: Sodium Chloride (Sodium Chloride Flush Syringe 10 Ml) 10 ml IV PRN PRN PRN Reason: LINE FLUSH Review of Systems ROS unobtainable: due to mental status Exam - Vital Signs Vital signs: Vital Signs Pulse Resp Pulse Ox 118 H 22 100 03/05/20 09:32 03/05/20 09:32 03/05/20 09:32 Results - Lab Results 03/09/20 10:35 03/09/20 10:35 Most recent lab results ABG pH 7.470 pH Units (7.350-7.450) H 03/06/20 08:42 ABG pCO2 21.5 mm Hg 03/06/20 08:42 ABG pO2 451.0 mm Hg (80.0-90.0) H 03/06/20 08:42 ABG HCO3 15.3 mmol/L (20.0-26.0) L 03/06/20 08:42 ABG O2 Saturation 99.6 % (95.0-99.0) H 03/06/20 08:42 Calcium 6.9 mg/dL (8.4-10.2) L 03/08/20 06:55 Phosphorus 6.90 mg/dL (2.5-4.5) H 03/05/20 11:18 Magnesium 1.80 mg/dL (1.7-2.3) 03/05/20 11:18 Assessment and Plan 1. Acute kidney injury: Vasomotor RACH in the setting of DKA. Renal US ordered. Creatinine level continue to increase. Monitor renal function. Continue IV fluids. Avoid nephrotoxic agents. Meds dosage based on GFR. 2. FEN: Hyperchloremic metabolic acidosis, may need bicarb drip, monitor. Monitor lytes and volume status. 3. Acute hypoxic respiratory failure: S/p extubated. NC O2. Followed by Pulmonary. 4. COVID-19 infection. Follow cultures. 5. Sepsis with shock, POA: 2/2 COVID-19 infection. BP is better. 6. Anemia: PRBC. 7. DM type 2. 8. HTN: Monitor BP. 9. Metabolic encephalopathy, POA. - General Appearance General appearance: appears stated age, not in distress, appears chronically ill, on NC O2, NG tube HEENT: ATNC, CAITY Neck: Trachea midline Respiratory: appears ctab Cardiology: regular, S1S2, no murmur Gastrointestinal: normoactive bowel sounds, not tender, not distended Integumentary: no rash, warm and dry Neurologic: alert, not following any command, non-verbal Ext: no edema : Verma catheter
[2020-03-08 12:58] LABS: Iron 106 ug/dL (37-170); Total Iron Binding Capacity 101 mcg/dL (250-450)
[2020-03-08 13:48] LABS: Creatinine,Urine 19.3 mg/dL (0.1-20.0)
--- NOTE | 2020-03-08 14:07 | XRay Report ---
ABDOMEN 1 VIEW(S) INDICATION / CLINICAL INFORMATION: tube placement. COMPARISON: Earlier today at 1148 hours FINDINGS: TUBES / LINES: The feeding tube has been advanced to the antrum of the stomach. BOWEL GAS PATTERN: No significant abnormality. FREE AIR / EXTRALUMINAL GAS: None seen. ADDITIONAL FINDINGS: No significant additional findings. IMPRESSION: No significant abnormality. Feeding tube as described. Signer Name: Lauro Acevedo Jr, MD Signed: 03/08/2020 2:03 PM Workstation Name: [id number]
[2020-03-09 01:12] LABS: Calcium 7.1 mg/dL (8.4-10.2)
[2020-03-09] MEDS: INSULIN LISPRO 100 UNIT/ML VIAL 3 mL SUB-Q SCH ×5 (02:41→23:59)
[2020-03-09] MEDS ORDERED: SODIUM CHLORIDE 0.9% 500 ML 500 ML IV ONE (03:19)
[2020-03-09] MEDS: DEXTROSE 50% IN WATER (25GM) 50 ML SYRINGE IV PRN (06:09)
--- NOTE | 2020-03-09 10:01 | Progress Note ---
Assessment and Plan Assessment and plan: Septic shock Patient with septic shock secondary to UTI and pneumonia. Patient has leukocytosis as well as fever. Currently on pressor support. Patient did improve somewhat was able to extubate today. Patient DKA also improved with treatment of underlying etiology of infection. Responding pressor support and aggressive IV volume replacement. Continue cefepime and vancomycin. Follow any ID recommend further ID recommendations. Acute hypoxemic respiratory failure Patient now extubated most likely was secondary to infection and uremia metaboli c acidosis. Acute kidney injury (RACH) with acute tubular necrosis (ATN) Patient with acute kidney injury. Patient known to me from [place]. Has had underlying chronic kidney disease. So most likely acute on chronic. Will need to follow-up at baseline. DKA (diabetic ketoacidoses) Patient DKA has resolved now most likely underlying sepsis infection. Will place patient on 70/30 insulin 15 units a.m. 10 units p.m. DVT prophylaxis Hyponatremia syndrome Hyponatremia has resolved Toxic Metabolic encephalopathy Metabolic encephalopathy multifactorial underlying dementia exacerbated by sepsis and hypoxemia. COVID 19 Pneumonia Patient is positive for COVID-19 infection. 03/08/2020. Patient with hypoglycemia yesterday and insulin schedule discontinued. Dobbhoff tube placement for tube feedings. Speech therapy reports high aspiration risk. Pulmonary had discussion with family to consider AND. Overall prognosis is guarded to poor. Strongly suggest considering palliative care/hospice with this patient while at the custodial. Patient with hemoglobin 6.5. Type and cross and transfuse 1 unit PRBCs. Check iron studies. 03/09/2020. Patient currently satting 98% on room air. Follow-up bilateral renal ultrasound for acute kidney injury. Nephrology following. COVID+ testing from 03/05/2020. However, patient with no hypoxia. Recheck inflammatory markers. Consider ID consultation. Pulmonary following. History Interval history: 54-year-old with acute metabolic encephalopathy multifactorial DKA and septic shock and acute respiratory failure. Hospitalist Physical - Constitutional Vitals: Temp Pulse Resp BP Pulse Ox 97 F L 71 20 122/68 98 03/09/20 07:15 03/09/20 07:15 03/09/20 07:15 03/09/20 07:15 03/09/20 09:12 General appearance: Present: mild distress - EENT Eyes: Present: PERRL, EOM intact ENT: hearing intact, clear oral mucosa, dentition normal - Neck Neck: Present: supple, normal ROM - Respiratory Respiratory effort: normal Respiratory: bilateral: CTA - Cardiovascular Rhythm: regular Heart Sounds: Present: S1 & S2. Absent: gallop, rub - Extremities Extremities: no ischemia, No edema, Full ROM - Abdominal General gastrointestinal: soft, non-tender, non-distended, normal bowel sounds - Integumentary Integumentary: Present: clear, warm, dry - Neurologic Neurologic: CNII-XII intact, moves all extremities Results - Labs CBC & Chem 7: 03/08/20 07:39 03/09/20 00:20 Labs: Laboratory Last Values WBC 6.3 K/mm3 (4.5-11.0) 03/08/20 07:39 RBC 2.13 M/mm3 (3.65-5.03) L 03/08/20 07:39 Hgb 6.5 gm/dl (10.1-14.3) L 03/08/20 07:39 Hct 18.6 % (30.3-42.9) L* D 03/08/20 07:39 MCV 87 fl (79-97) 03/08/20 07:39 MCH 31 pg (28-32) 03/08/20 07:39 MCHC 35 % (30-34) H 03/08/20 07:39 RDW 17.0 % (13.2-15.2) H 03/08/20 07:39 Plt Count 91 K/mm3 (140-440) L 03/08/20 07:39 Lymph % (Auto) 21.6 % (13.4-35.0) 03/08/20 07:39 Miller % (Auto) 6.8 % (0.0-7.3) 03/08/20 07:39 Eos % (Auto) 0.8 % (0.0-4.3) 03/08/20 07:39 Baso % (Auto) 0.4 % (0.0-1.8) 03/08/20 07:39 Lymph # 1.4 K/mm3 (1.2-5.4) 03/08/20 07:39 Miller # 0.4 K/mm3 (0.0-0.8) 03/08/20 07:39 Eos # 0.1 K/mm3 (0.0-0.4) 03/08/20 07:39 Baso # 0.0 K/mm3 (0.0-0.1) 03/08/20 07:39 Add Manual Diff Complete 03/05/20 11:20 Total Counted 100 03/05/20 11:20 Seg Neutrophils % 70.4 % (40.0-70.0) H 03/08/20 07:39 Seg Neuts % (Manual) 95.0 % (40.0-70.0) H 03/05/20 11:20 Band Neutrophils % 0 % 03/05/20 11:20 Lymphocytes % (Manual) 2.0 % (13.4-35.0) L 03/05/20 11:20 Reactive Lymphs % (Man) 0 % 03/05/20 11:20 Monocytes % (Manual) 3.0 % (0.0-7.3) 03/05/20 11:20 Eosinophils % (Manual) 0 % (0.0-4.3) 03/05/20 11:20 Basophils % (Manual) 0 % (0.0-1.8) 03/05/20 11:20 Metamyelocytes % 0 % 03/05/20 11:20 Myelocytes % 0 % 03/05/20 11:20 Promyelocytes % 0 % 03/05/20 11:20 Blast Cells % 0 % 03/05/20 11:20 Nucleated RBC % Not Reportable 03/05/20 11:20 Seg Neutrophils # 4.4 K/mm3 (1.8-7.7) 03/08/20 07:39 Seg Neutrophils # Man 18.4 K/mm3 (1.8-7.7) H 03/05/20 11:20 Band Neutrophils # 0.0 K/mm3 03/05/20 11:20 Lymphocytes # (Manual) 0.4 K/mm3 (1.2-5.4) L 03/05/20 11:20 Abs React Lymphs (Man) 0.0 K/mm3 03/05/20 11:20 Monocytes # (Manual) 0.6 K/mm3 (0.0-0.8) 03/05/20 11:20 Eosinophils # (Manual) 0.0 K/mm3 (0.0-0.4) 03/05/20 11:20 Basophils # (Manual) 0.0 K/mm3 (0.0-0.1) 03/05/20 11:20 Metamyelocytes # 0.0 K/mm3 03/05/20 11:20 Myelocytes # 0.0 K/mm3 03/05/20 11:20 Promyelocytes # 0.0 K/mm3 03/05/20 11:20 Blast Cells # 0.0 K/mm3 03/05/20 11:20 WBC Morphology Not Reportable 03/05/20 11:20 Hypersegmented Neuts Not Reportable 03/05/20 11:20 Hyposegmented Neuts Not Reportable 03/05/20 11:20 Hypogranular Neuts Not Reportable 03/05/20 11:20 Smudge Cells Not Reportable 03/05/20 11:20 Toxic Granulation Not Reportable 03/05/20 11:20 Toxic Vacuolation Not Reportable 03/05/20 11:20 Dohle Bodies Not Reportable 03/05/20 11:20 Pelger-Huet Anomaly Not Reportable 03/05/20 11:20 Jamia Rods Not Reportable 03/05/20 11:20 Platelet Estimate Consistent w auto 03/05/20 11:20 Clumped Platelets Not Reportable 03/05/20 11:20 Plt Clumps, EDTA Not Reportable 03/05/20 11:20 Large Platelets Not Reportable 03/05/20 11:20 Giant Platelets Not Reportable 03/05/20 11:20 Platelet Satelliting Not Reportable 03/05/20 11:20 Plt Morphology Comment Not Reportable 03/05/20 11:20 RBC Morphology Not Reportable 03/05/20 11:20 Dimorphic RBCs Not Reportable 03/05/20 11:20 Polychromasia Not Reportable 03/05/20 11:20 Hypochromasia Not Reportable 03/05/20 11:20 Poikilocytosis Not Reportable 03/05/20 11:20 Anisocytosis 1+ 03/05/20 11:20 Microcytosis Few 03/05/20 11:20 Macrocytosis Few 03/05/20 11:20 Spherocytes Not Reportable 03/05/20 11:20 Pappenheimer Bodies Not Reportable 03/05/20 11:20 Sickle Cells Not Reportable 03/05/20 11:20 Target Cells Not Reportable 03/05/20 11:20 Tear Drop Cells Not Reportable 03/05/20 11:20 Ovalocytes Not Reportable 03/05/20 11:20 Helmet Cells Not Reportable 03/05/20 11:20 [place] Bodies Not Reportable 03/05/20 11:20 Polk Rings Not Reportable 03/05/20 11:20 Luis Cells Not Reportable 03/05/20 11:20 Bite Cells Not Reportable 03/05/20 11:20 Crenated Cell Not Reportable 03/05/20 11:20 Elliptocytes Not Reportable 03/05/20 11:20 Acanthocytes (Spur) Not Reportable 03/05/20 11:20 Rouleaux Not Reportable 03/05/20 11:20 Hemoglobin C Crystals Not Reportable 03/05/20 11:20 Schistocytes Not Reportable 03/05/20 11:20 Malaria parasites Not Reportable 03/05/20 11:20 Felice Bodies Not Reportable 03/05/20 11:20 Hem Pathologist Commnt No 03/05/20 11:20 D-Dimer 1015.54 ng/mlDDU (0-234) H 03/05/20 11:20 ABG pH 7.470 pH Units (7.350-7.450) H 03/06/20 08:42 ABG pCO2 21.5 mm Hg 03/06/20 08:42 ABG pO2 451.0 mm Hg (80.0-90.0) H 03/06/20 08:42 ABG HCO3 15.3 mmol/L (20.0-26.0) L 03/06/20 08:42 ABG O2 Saturation 99.6 % (95.0-99.0) H 03/06/20 08:42 ABG O2 Content 12.0 (0.0-44) 03/06/20 08:42 ABG Base Excess -7.3 mmol/L (-2.0-3.0) L 03/06/20 08:42 ABG Hemoglobin 7.7 gm/dl (12.0-16.0) L 03/06/20 08:42 ABG Carboxyhemoglobin 0.9 % (0.0-5.0) 03/06/20 08:42 ABG Methemoglobin 0.5 % (0.0-1.5) 03/06/20 08:42 Oxyhemoglobin 98.2 % (95.0-99.0) 03/06/20 08:42 FiO2 100 % 03/06/20 08:42 Sodium 137 mmol/L (137-145) 03/09/20 00:20 Potassium 3.8 mmol/L (3.6-5.0) 03/09/20 00:20 Chloride 108.3 mmol/L (98-107) H 03/09/20 00:20 Carbon Dioxide 15 mmol/L (22-30) L 03/09/20 00:20 Anion Gap 18 mmol/L 03/09/20 00:20 BUN 35 mg/dL (7-17) H 03/09/20 00:20 Creatinine 2.7 mg/dL (0.6-1.2) H 03/09/20 00:20 Estimated GFR 18 ml/min 03/09/20 00:20 BUN/Creatinine Ratio 13 % 03/09/20 00:20 Glucose 41 mg/dL (65-100) L 03/09/20 00:20 POC Glucose 205 (70-105) H 03/09/20 06:32 Lactic Acid 4.30 mmol/L (0.7-2.0) H* 03/06/20 14:35 Calcium 7.1 mg/dL (8.4-10.2) L 03/09/20 00:20 Phosphorus 6.90 mg/dL (2.5-4.5) H 03/05/20 11:18 Magnesium 1.80 mg/dL (1.7-2.3) 03/05/20 11:18 Iron 106 ug/dL (37-170) 03/08/20 12:00 TIBC 101 mcg/dL (250-450) L 03/08/20 12:00 Ferritin 1243.0 ng/mL (10.0-200.0) H 03/09/20 00:20 Total Bilirubin 0.20 mg/dL (0.1-1.2) 03/08/20 06:55 AST 27 units/L (5-40) 03/08/20 06:55 ALT 23 units/L (7-56) 03/08/20 06:55 Alkaline Phosphatase 135 units/L (35-129) H 03/08/20 06:55 Lactate Dehydrogenase 351 units/L (91-180) H 03/05/20 11:20 C-Reactive Protein 2.80 mg/dL (0.00-1.30) H 03/05/20 11:20 Total Protein 3.9 g/dL (6.3-8.2) L 03/08/20 06:55 Albumin 1.7 g/dL (3.9-5) L 03/08/20 06:55 Albumin/Globulin Ratio 0.8 % 03/08/20 06:55 Vitamin B12 1453 pg/mL (211-911) H 03/09/20 00:20 Folate 8.06 ng/mL (7.3-26.0) 03/09/20 00:20 Procalcitonin 31.30 ng/mL (<0.15) 03/05/20 11:20 Urine Color Yellow (Yellow) 03/06/20 Unknown Urine Turbidity Cloudy (Clear) 03/06/20 Unknown Urine pH 5.0 (5.0-7.0) 03/06/20 Unknown Ur Specific [place] 1.009 (1.003-1.030) 03/06/20 Unknown Urine Protein <15 mg/dl mg/dL (Negative) 03/06/20 Unknown Urine Glucose (UA) >=500 mg/dL (Negative) 03/06/20 Unknown Urine Ketones 20 mg/dL (Negative) 03/06/20 Unknown Urine Blood Sm (Negative) 03/06/20 Unknown Urine Nitrite Neg (Negative) 03/06/20 Unknown Urine Bilirubin Neg (Negative) 03/06/20 Unknown Urine Urobilinogen < 2.0 mg/dL (<2.0) 03/06/20 Unknown Ur Leukocyte Esterase Neg (Negative) 03/06/20 Unknown Urine WBC (Auto) 2.0 /HPF (0.0-6.0) 03/06/20 Unknown Urine RBC (Auto) > 182.0 /HPF (0.0-6.0) 03/06/20 Unknown Urine Bacteria (Auto) 1+ /HPF (Negative) 03/06/20 Unknown Urine Yeast (Budding) 3+ /HPF 03/06/20 Unknown Urine Creatinine 19.3 mg/dL (0.1-20.0) 03/08/20 11:41 Urine Sodium 71 mmol/L 03/08/20 11:41 Nasal Screen MRSA (PCR) Negative (Negative) 03/06/20 02:50 Coronavirus (PCR) Positive (Negative) A 03/05/20 Unknown Blood Type O POSITIVE 03/09/20 00:20 Antibody Screen Negative 03/09/20 00:20 Crossmatch See Detail 03/09/20 00:20 Microbiology: Microbiology 03/05/20 11:20 Peripheral/Venous Blood Culture - Preliminary NO GROWTH AFTER 72 HOURS 03/05/20 11:20 Peripheral/Venous Blood Culture - Preliminary NO GROWTH AFTER 72 HOURS Verma/IV: Voiding Method Indwelling Catheter IV Catheter Type [Right Triple Lumen Cath Internal Jugular] IV Catheter Type [Right Leg] Intra-osseous IV Catheter Type [Left Leg] Intra-osseous Active Medications - Current Medications Current Medications: Generic Name Dose Route Start Last Admin Trade Name Freq PRN Reason Stop Dose Admin Lipase/Protease/Amylase 1 each 03/08/20 09:00 Pancreazdelfin Card 10,500 Unit FEEDTUBE PRN PRN For Clogged Feeding Tube Dextrose 0 ml 03/05/20 12:09 03/09/20 06:09 D50w (25gm) Syringe IV 50 ml Q30MIN PRN Administration Hypoglycemia Protocol Dextrose/Sodium Chloride 1,000 mls @ 75 mls/hr 03/07/20 10:00 03/08/20 18:37 D5/0.45ns IV 75 mls/hr DIRECT SHAHLA Administration Insulin Human Lispro 0 unit 03/07/20 01:00 03/09/20 07:03 Humalog SUB-Q Not Given Q6HR SHAHLA Protocol Simple Syrup 15 ml 03/08/20 09:00 Simple Syrup FEEDTUBE PRN PRN Hypoglycemia Simple Syrup 30 ml 03/08/20 09:00 Simple Syrup FEEDTUBE PRN PRN Hypoglycemia Sodium Bicarbonate 325 mg 03/08/20 09:00 Sodium Bicarbonate FEEDTUBE PRN PRN For Clogged Feeding Tube Sodium Chloride 10 ml 03/05/20 22:00 03/08/20 22:06 Sodium Chloride Flush Syringe 10 Ml IV 10 ml BID SHAHLA Administration Sodium Chloride 10 ml 03/05/20 12:13 Sodium Chloride Flush Syringe 10 Ml IV PRN PRN LINE FLUSH Nutrition/Malnutrition Assess - Dietary Evaluation Nutrition/Malnutrition Findings: Nutrition Notes Start: 03/06/20 12:14 Freq: Status: Active Protocol: Document 03/08/20 08:43 LM (Rec: 03/08/20 08:51 LM [id number]) Nutrition Notes Need for Assessment generated from: MD Order Initial or Follow up Reassessment Current Diagnosis Acute Kidney Injury,Decubitus( Pressure Ulcer),Diabetes, Sepsis,Respiratory Failure, Hyperlipidemia Other Pertinent Diagnosis dementia, debility, encephalopathy, heel and sacral PU Current Diet NPO Labs/Tests BUN 33 Cr 2.4 Pertinent Medications D5NS at 75ml/hr Height 5 ft 3 in Weight 63.5 kg Carm[place]aels Body Weight (kg) 52.27 BMI 24.7 Weight Status Appropriate Subjective/Other Information MD consult for TF. Pt has been extubated and failed [employer] MANAGER eval . Burn Absent Trauma Absent Current % PO Negligible Minimum of two criteria No physical signs of malnutrition #2 Nutrition Diagnosis Increased nutrient needs ( specify in comment below) Diagnosis Progress(for reassessment Continues documentation) #1 Nutrition Diagnosis Inadequate oral intake Etiology failed EXPRESS MANAGER eval Diagnosis Progress(for reassessment Continues documentation) Is patient on ventilator? No Is Patient Ambulatory and/or Out of Bed No REE-([facility]-confined to bed) 8317.372 Calculation Used for Recommendations [facility] Additional Notes Protein: 51-96g (0.8-1.5g/kg) RACH and wounds Fluid: 1ml/kcal Nutrition Intervention Change Diet Order: TF Nutrition Support: Nepro 1.8 at 35ml/hr Flush 150ml q4h Kcal 1,512 Protein (gm) 68 Fluid (mL) 611 Goal #1 TF start/toleranc Anticipated Discharge Needs: unable to determine at this time Follow-Up By: 03/11/20 Additional Comments F/U for TF start/tolerance
[2020-03-09 10:52] LABS: Basophils % (Auto) 0.5 % (0.0-1.8); Eosinophils % (Auto) 0.7 % (0.0-4.3); Hematocrit 24.4 % (30.3-42.9); Hemoglobin 8.7 gm/dl (10.1-14.3); Lymphocytes # (Auto) 0.9 K/mm3 (1.2-5.4); Lymphocytes % (Auto) 15.1 % (13.4-35.0); Mean Corpuscular HGB Conc 36 % (30-34); Mean Corpuscular Volume 88 fl (79-97); Monocytes # (Auto) 0.5 K/mm3 (0.0-0.8); Monocytes % (Auto) 8.5 % (0.0-7.3); Red Blood Count 2.76 M/mm3 (3.65-5.03); Red Cell Distribution Width 15.7 % (13.2-15.2)
[2020-03-09 10:53] LABS: Platelet Count 72 K/mm3 (140-440)
[2020-03-09 11:14] LABS: Calcium 7.3 mg/dL (8.4-10.2)
--- NOTE | 2020-03-09 12:01 | Progress Note ---
Assessment and Plan 1. Acute kidney injury: Vasomotor RACH in the setting of DKA. Renal US ordered. Creatinine level continue to increase. Monitor renal function. Continue IV fluids. Unable to give Heparin / Lovenox due to anemia and thrombocytopenia. Renal prognosis is guarded. Avoid nephrotoxic agents. Meds dosage based on GFR. 2. FEN: Hyperchloremic metabolic acidosis, change to bicarb drip, monitor. Monitor lytes and volume status. 3. Acute hypoxic respiratory failure: S/p extubated. NC O2. Followed by Pulmonary. 4. COVID-19 infection. Follow cultures. 5. Sepsis with shock, POA: 2/2 COVID-19 infection. BP is better. 6. Anemia: S/p PRBC. 7. DM type 2. 8. HTN: Monitor BP. 9. Metabolic encephalopathy, POA. - Subjective: Patient was seen and examined at the bedside. - General Appearance General appearance: appears stated age, not in distress, appears chronically ill, on NC O2, NG tube HEENT: ATNC, CAITY Neck: Trachea midline Respiratory: appears ctab Cardiology: regular, S1S2, no murmur Gastrointestinal: normoactive bowel sounds, not tender, not distended Integumentary: no rash, warm and dry Neurologic: alert, not following any command, non-verbal Ext: no edema : Verma catheter Subjective Date of service: 03/09/20 Principal diagnosis: Septic shock acute respiratory failure Objective - Vital Signs Vital signs: Vital Signs - 12hr 03/09/20 03/09/20 03/09/20 03:50 04:03 04:22 Temperature 97.5 F L Pulse Rate 74 72 Respiratory 20 20 16 Rate Blood Pressure 95/65 100/68 110/69 O2 Sat by Pulse 100 98 Oximetry 03/09/20 03/09/20 03/09/20 04:30 04:45 05:15 Temperature 97.6 F 96 F L 96 F L Pulse Rate 72 76 75 Respiratory 20 20 20 Rate Blood Pressure 100/68 114/71 122/76 O2 Sat by Pulse 97 95 Oximetry 03/09/20 03/09/20 03/09/20 05:45 06:15 06:45 Temperature 96 F L 96 F L 96 F L Pulse Rate 77 72 72 Respiratory 20 20 20 Rate Blood Pressure 106/66 139/80 134/69 O2 Sat by Pulse 96 100 100 Oximetry 03/09/20 03/09/20 07:15 09:12 Temperature 97 F L Pulse Rate 71 Respiratory 20 Rate Blood Pressure 122/68 O2 Sat by Pulse 100 98 Oximetry - Lab 03/09/20 10:35 03/09/20 10:35 Most recent lab results ABG pH 7.470 pH Units (7.350-7.450) H 03/06/20 08:42 ABG pCO2 21.5 mm Hg 03/06/20 08:42 ABG pO2 451.0 mm Hg (80.0-90.0) H 03/06/20 08:42 ABG HCO3 15.3 mmol/L (20.0-26.0) L 03/06/20 08:42 ABG O2 Saturation 99.6 % (95.0-99.0) H 03/06/20 08:42 Calcium 7.3 mg/dL (8.4-10.2) L 03/09/20 10:35 Phosphorus 6.90 mg/dL (2.5-4.5) H 03/05/20 11:18 Magnesium 1.80 mg/dL (1.7-2.3) 03/05/20 11:18 Urine Creatinine 19.3 mg/dL (0.1-20.0) 03/08/20 11:41 Urine Sodium 71 mmol/L 03/08/20 11:41 Medications & Allergies - Medications Allergies/Adverse Reactions: Allergies No Known Allergies Allergy (Verified 02/26/20 10:24) Home Medications: Home Medications Medication Instructions Recorded Confirmed Last Taken Type Citalopram [Celexa] 20 mg PO QDAY 01/25/20 03/06/20 Unknown History Pravastatin [Pravachol] 40 mg PO QHS 01/25/20 03/06/20 Unknown History Acetaminophen [Mapap] 650 mg PO BID PRN 02/26/20 03/06/20 Unknown History Ascorbic Acid [Vitamin C with Chetna 500 mg PO DAILY 02/26/20 03/06/20 Unknown History Hips] Glimepiride [Amaryl] 4 mg PO QAM 02/26/20 03/06/20 Unknown History Insulin Lispro [Humalog] 5 units SQ AC 02/26/20 03/06/20 Unknown History Multivit-Min/Ferrous Fumarate 15 mg PO DAILY 02/26/20 03/06/20 Unknown History [Multivitamin with Minerals Tab] Apixaban [Eliquis] 2.5 mg PO BID #30 tablet 03/01/20 03/06/20 Unknown Rx Insulin Glargine [Lantus VIAL] 15 units SUB-Q BID #100 units 03/01/20 03/06/20 Unknown Rx levoFLOXacin [Levaquin TAB] 500 mg PO QDAY #3 tablet 03/01/20 03/06/20 Unknown Rx Active Medications: Generic Name Dose Route Start Last Admin Trade Name Freq PRN Reason Stop Dose Admin Lipase/Protease/Amylase 1 each 03/08/20 09:[address] 10,500 Unit FEEDTUBE PRN PRN For Clogged Feeding Tube Dextrose 0 ml 03/05/20 12:09 03/09/20 06:09 D50w (25gm) Syringe IV 50 ml Q30MIN PRN Administration Hypoglycemia Protocol Dextrose/Sodium Chloride 1,000 mls @ 75 mls/hr 03/07/20 10:00 03/08/20 18:37 D5/0.45ns IV 75 mls/hr DIRECT SHAHLA Administration Insulin Human Lispro 0 unit 03/07/20 01:00 03/09/20 07:03 Humalog SUB-Q Not Given Q6HR SHAHLA Protocol Simple Syrup 15 ml 03/08/20 09:00 Simple Syrup FEEDTUBE PRN PRN Hypoglycemia Simple Syrup 30 ml 03/08/20 09:00 Simple Syrup FEEDTUBE PRN PRN Hypoglycemia Sodium Bicarbonate 325 mg 03/08/20 09:00 Sodium Bicarbonate FEEDTUBE PRN PRN For Clogged Feeding Tube Sodium Chloride 10 ml 03/05/20 22:00 03/08/20 22:06 Sodium Chloride Flush Syringe 10 Ml IV 10 ml BID SHAHLA Administration Sodium Chloride 10 ml 03/05/20 12:13 Sodium Chloride Flush Syringe 10 Ml IV PRN PRN LINE FLUSH
[2020-03-09] MEDS: SODIUM BICARBONATE 75 MEQ in DEXTROSE 5% IN WATER 1,000 ML IV SCH (13:58)
[2020-03-09 14:28] LABS: C-Reactive Protein 3.5 mg/dL (0.00-1.30)
[2020-03-10] MEDS: INSULIN LISPRO 100 UNIT/ML VIAL 3 mL SUB-Q SCH ×4 (06:24→23:35)
--- NOTE | 2020-03-10 09:09 | Progress Note ---
Assessment and Plan Assessment and plan: Septic shock Patient with septic shock secondary to UTI and pneumonia. Patient has leukocytosis as well as fever. Currently on pressor support. Patient did improve somewhat was able to extubate today. Patient DKA also improved with treatment of underlying etiology of infection. Responding pressor support and aggressive IV volume replacement. Continue cefepime and vancomycin. Follow any ID recommend further ID recommendations. Acute hypoxemic respiratory failure Patient now extubated most likely was secondary to infection and uremia metaboli c acidosis. Acute kidney injury (RACH) with acute tubular necrosis (ATN) Patient with acute kidney injury. Vasomotor RACH in the setting of DKA. DKA (diabetic ketoacidoses) Patient DKA has resolved now most likely underlying sepsis infection. Will place patient on 70/30 insulin 15 units a.m. 10 units p.m. DVT prophylaxis Hyponatremia syndrome Hyponatremia has resolved Toxic Metabolic encephalopathy Metabolic encephalopathy multifactorial underlying dementia exacerbated by sepsis and hypoxemia. COVID 19 Pneumonia Patient is positive for COVID-19 infection. 03/08/2020. Patient with hypoglycemia yesterday and insulin schedule discontinued. Dobbhoff tube placement for tube feedings. Speech therapy reports high aspiration risk. Pulmonary had discussion with family to consider AND. Overall prognosis is guarded to poor. Strongly suggest considering palliative care/hospice with this patient while at the senior living. Patient with hemoglobin 6.5. Type and cross and transfuse 1 unit PRBCs. Check iron studies. 03/09/2020. Patient currently satting 98% on room air. Follow-up bilateral renal ultrasound for acute kidney injury. Nephrology following. COVID+ testing from 03/05/2020. However, patient with no hypoxia. Recheck inflammatory markers. Consider ID consultation. Pulmonary following. 03/10/2020. Patient with tube feeding in place and dietitian following with regards to feeding. Patient is s/p PRBCs of 1 unit. Hemoglobin improved to 8.7. Continue to follow CBC. Creatinine continues to worsen. Await renal u ltrasound. Continue IV fluid hydration. History Interval history: 54-year-old with acute metabolic encephalopathy multifactorial DKA and septic shock and acute respiratory failure. Hospitalist Physical - Constitutional Vitals: Temp Pulse Resp BP Pulse Ox 97.6 F 85 20 127/59 100 03/10/20 05:19 03/10/20 05:19 03/10/20 05:19 03/10/20 05:19 03/10/20 05:19 General appearance: Present: mild distress - EENT Eyes: Present: PERRL, EOM intact ENT: hearing intact, clear oral mucosa, dentition normal - Neck Neck: Present: supple, normal ROM - Respiratory Respiratory effort: normal Respiratory: bilateral: CTA - Cardiovascular Rhythm: regular Heart Sounds: Present: S1 & S2. Absent: gallop, rub - Extremities Extremities: no ischemia, No edema, Full ROM - Abdominal General gastrointestinal: soft, non-tender, non-distended, normal bowel sounds - Integumentary Integumentary: Present: clear, warm, dry - Neurologic Neurologic: CNII-XII intact, moves all extremities Results - Labs CBC & Chem 7: 03/09/20 10:35 03/09/20 10:35 Labs: Laboratory Last Values WBC 5.8 K/mm3 (4.5-11.0) 03/09/20 10:35 RBC 2.76 M/mm3 (3.65-5.03) L 03/09/20 10:35 Hgb 8.7 gm/dl (10.1-14.3) L 03/09/20 10:35 Hct 24.4 % (30.3-42.9) L 03/09/20 10:35 MCV 88 fl (79-97) 03/09/20 10:35 MCH 32 pg (28-32) 03/09/20 10:35 MCHC 36 % (30-34) H 03/09/20 10:35 RDW 15.7 % (13.2-15.2) H 03/09/20 10:35 Plt Count 72 K/mm3 (140-440) L 03/09/20 10:35 Lymph % (Auto) 15.1 % (13.4-35.0) 03/09/20 10:35 Armstrong % (Auto) 8.5 % (0.0-7.3) H 03/09/20 10:35 Eos % (Auto) 0.7 % (0.0-4.3) 03/09/20 10:35 Baso % (Auto) 0.5 % (0.0-1.8) 03/09/20 10:35 Lymph # 0.9 K/mm3 (1.2-5.4) L 03/09/20 10:35 Armstrong # 0.5 K/mm3 (0.0-0.8) 03/09/20 10:35 Eos # 0.0 K/mm3 (0.0-0.4) 03/09/20 10:35 Baso # 0.0 K/mm3 (0.0-0.1) 03/09/20 10:35 Add Manual Diff Complete 03/05/20 11:20 Total Counted 100 03/05/20 11:20 Seg Neutrophils % 75.2 % (40.0-70.0) H 03/09/20 10:35 Seg Neuts % (Manual) 95.0 % (40.0-70.0) H 03/05/20 11:20 Band Neutrophils % 0 % 03/05/20 11:20 Lymphocytes % (Manual) 2.0 % (13.4-35.0) L 03/05/20 11:20 Reactive Lymphs % (Man) 0 % 03/05/20 11:20 Monocytes % (Manual) 3.0 % (0.0-7.3) 03/05/20 11:20 Eosinophils % (Manual) 0 % (0.0-4.3) 03/05/20 11:20 Basophils % (Manual) 0 % (0.0-1.8) 03/05/20 11:20 Metamyelocytes % 0 % 03/05/20 11:20 Myelocytes % 0 % 03/05/20 11:20 Promyelocytes % 0 % 03/05/20 11:20 Blast Cells % 0 % 03/05/20 11:20 Nucleated RBC % Not Reportable 03/05/20 11:20 Seg Neutrophils # 4.3 K/mm3 (1.8-7.7) 03/09/20 10:35 Seg Neutrophils # Man 18.4 K/mm3 (1.8-7.7) H 03/05/20 11:20 Band Neutrophils # 0.0 K/mm3 03/05/20 11:20 Lymphocytes # (Manual) 0.4 K/mm3 (1.2-5.4) L 03/05/20 11:20 Abs React Lymphs (Man) 0.0 K/mm3 03/05/20 11:20 Monocytes # (Manual) 0.6 K/mm3 (0.0-0.8) 03/05/20 11:20 Eosinophils # (Manual) 0.0 K/mm3 (0.0-0.4) 03/05/20 11:20 Basophils # (Manual) 0.0 K/mm3 (0.0-0.1) 03/05/20 11:20 Metamyelocytes # 0.0 K/mm3 03/05/20 11:20 Myelocytes # 0.0 K/mm3 03/05/20 11:20 Promyelocytes # 0.0 K/mm3 03/05/20 11:20 Blast Cells # 0.0 K/mm3 03/05/20 11:20 WBC Morphology Not Reportable 03/05/20 11:20 Hypersegmented Neuts Not Reportable 03/05/20 11:20 Hyposegmented Neuts Not Reportable 03/05/20 11:20 Hypogranular Neuts Not Reportable 03/05/20 11:20 Smudge Cells Not Reportable 03/05/20 11:20 Toxic Granulation Not Reportable 03/05/20 11:20 Toxic Vacuolation Not Reportable 03/05/20 11:20 Dohle Bodies Not Reportable 03/05/20 11:20 Pelger-Huet Anomaly Not Reportable 03/05/20 11:20 Jamia Rods Not Reportable 03/05/20 11:20 Platelet Estimate Consistent w auto 03/05/20 11:20 Clumped Platelets Not Reportable 03/05/20 11:20 Plt Clumps, EDTA Not Reportable 03/05/20 11:20 Large Platelets Not Reportable 03/05/20 11:20 Giant Platelets Not Reportable 03/05/20 11:20 Platelet Satelliting Not Reportable 03/05/20 11:20 Plt Morphology Comment Not Reportable 03/05/20 11:20 RBC Morphology Not Reportable 03/05/20 11:20 Dimorphic RBCs Not Reportable 03/05/20 11:20 Polychromasia Not Reportable 03/05/20 11:20 Hypochromasia Not Reportable 03/05/20 11:20 Poikilocytosis Not Reportable 03/05/20 11:20 Anisocytosis 1+ 03/05/20 11:20 Microcytosis Few 03/05/20 11:20 Macrocytosis Few 03/05/20 11:20 Spherocytes Not Reportable 08/18/20 11:20 Pappenheimer Bodies Not Reportable 03/05/20 11:20 Sickle Cells Not Reportable 03/05/20 11:20 Target Cells Not Reportable 03/05/20 11:20 Tear Drop Cells Not Reportable 03/05/20 11:20 Ovalocytes Not Reportable 03/05/20 11:20 Helmet Cells Not Reportable 03/05/20 11:20 Galvan-Middleton Bodies Not Reportable 03/05/20 11:20 Peebles Rings Not Reportable 03/05/20 11:20 Luis Cells Not Reportable 03/05/20 11:20 Bite Cells Not Reportable 03/05/20 11:20 Crenated Cell Not Reportable 03/05/20 11:20 Elliptocytes Not Reportable 03/05/20 11:20 Acanthocytes (Spur) Not Reportable 03/05/20 11:20 Rouleaux Not Reportable 03/05/20 11:20 Hemoglobin C Crystals Not Reportable 03/05/20 11:20 Schistocytes Not Reportable 03/05/20 11:20 Malaria parasites Not Reportable 03/05/20 11:20 Felice Bodies Not Reportable 03/05/20 11:20 Hem Pathologist Commnt No 03/05/20 11:20 D-Dimer 544.72 ng/mlDDU (0-234) H 03/09/20 10:01 ABG pH 7.470 pH Units (7.350-7.450) H 03/06/20 08:42 ABG pCO2 21.5 mm Hg 03/06/20 08:42 ABG pO2 451.0 mm Hg (80.0-90.0) H 03/06/20 08:42 ABG HCO3 15.3 mmol/L (20.0-26.0) L 03/06/20 08:42 ABG O2 Saturation 99.6 % (95.0-99.0) H 03/06/20 08:42 ABG O2 Content 12.0 (0.0-44) 03/06/20 08:42 ABG Base Excess -7.3 mmol/L (-2.0-3.0) L 03/06/20 08:42 ABG Hemoglobin 7.7 gm/dl (12.0-16.0) L 03/06/20 08:42 ABG Carboxyhemoglobin 0.9 % (0.0-5.0) 03/06/20 08:42 ABG Methemoglobin 0.5 % (0.0-1.5) 03/06/20 08:42 Oxyhemoglobin 98.2 % (95.0-99.0) 03/06/20 08:42 FiO2 100 % 03/06/20 08:42 Sodium 139 mmol/L (137-145) 03/09/20 10:35 Potassium 4.2 mmol/L (3.6-5.0) 03/09/20 10:35 Chloride 110.7 mmol/L (98-107) H 03/09/20 10:35 Carbon Dioxide 17 mmol/L (22-30) L 03/09/20 10:35 Anion Gap 16 mmol/L 03/09/20 10:35 BUN 36 mg/dL (7-17) H 03/09/20 10:35 Creatinine 2.7 mg/dL (0.6-1.2) H 03/09/20 10:35 Estimated GFR 18 ml/min 03/09/20 10:35 BUN/Creatinine Ratio 13 % 03/09/20 10:35 Glucose 114 mg/dL (65-100) H 03/09/20 10:35 POC Glucose 302 (70-105) H 03/10/20 06:37 Lactic Acid 4.30 mmol/L (0.7-2.0) H* 03/06/20 14:35 Calcium 7.3 mg/dL (8.4-10.2) L 03/09/20 10:35 Phosphorus 6.90 mg/dL (2.5-4.5) H 03/05/20 11:18 Magnesium 1.80 mg/dL (1.7-2.3) 03/05/20 11:18 Iron 106 ug/dL (37-170) 03/08/20 12:00 TIBC 101 mcg/dL (250-450) L 03/08/20 12:00 Ferritin 835.3 ng/mL (10.0-200.0) H 03/09/20 10:01 Total Bilirubin 0.20 mg/dL (0.1-1.2) 03/08/20 06:55 AST 27 units/L (5-40) 03/08/20 06:55 ALT 23 units/L (7-56) 03/08/20 06:55 Alkaline Phosphatase 135 units/L (35-129) H 03/08/20 06:55 Lactate Dehydrogenase 460 units/L (91-180) H 03/09/20 10:01 C-Reactive Protein 3.50 mg/dL (0.00-1.30) H 03/09/20 10:01 Total Protein 3.9 g/dL (6.3-8.2) L 03/08/20 06:55 Albumin 1.7 g/dL (3.9-5) L 03/08/20 06:55 Albumin/Globulin Ratio 0.8 % 03/08/20 06:55 Vitamin B12 1453 pg/mL (211-911) H 03/09/20 00:20 Folate 8.06 ng/mL (7.3-26.0) 03/09/20 00:20 Procalcitonin 31.30 ng/mL (<0.15) 03/05/20 11:20 Urine Color Yellow (Yellow) 03/06/20 Unknown Urine Turbidity Cloudy (Clear) 03/06/20 Unknown Urine pH 5.0 (5.0-7.0) 03/06/20 Unknown Ur Specific [place] 1.009 (1.003-1.030) 03/06/20 Unknown Urine Protein <15 mg/dl mg/dL (Negative) 03/06/20 Unknown Urine Glucose (UA) >=500 mg/dL (Negative) 03/06/20 Unknown Urine Ketones 20 mg/dL (Negative) 03/06/20 Unknown Urine Blood Sm (Negative) 03/06/20 Unknown Urine Nitrite Neg (Negative) 03/06/20 Unknown Urine Bilirubin Neg (Negative) 03/06/20 Unknown Urine Urobilinogen < 2.0 mg/dL (<2.0) 03/06/20 Unknown Ur Leukocyte Esterase Neg (Negative) 03/06/20 Unknown Urine WBC (Auto) 2.0 /HPF (0.0-6.0) 03/06/20 Unknown Urine RBC (Auto) > 182.0 /HPF (0.0-6.0) 03/06/20 Unknown Urine Bacteria (Auto) 1+ /HPF (Negative) 03/06/20 Unknown Urine Yeast (Budding) 3+ /HPF 03/06/20 Unknown Urine Creatinine 19.3 mg/dL (0.1-20.0) 03/08/20 11:41 Urine Sodium 71 mmol/L 03/08/20 11:41 Nasal Screen MRSA (PCR) Negative (Negative) 03/06/20 02:50 Coronavirus (PCR) Positive (Negative) A 03/05/20 Unknown Blood Type O POSITIVE 03/09/20 00:20 Antibody Screen Negative 03/09/20 00:20 Crossmatch See Detail 03/09/20 00:20 Microbiology: Microbiology 03/05/20 11:20 Peripheral/Venous Blood Culture - Preliminary NO GROWTH AFTER 4 DAYS 03/05/20 11:20 Peripheral/Venous Blood Culture - Preliminary NO GROWTH AFTER 4 DAYS Verma/IV: Voiding Method Indwelling Catheter IV Catheter Type [Right Triple Lumen Cath Internal Jugular] IV Catheter Type [Right Leg] Intra-osseous IV Catheter Type [Left Leg] Intra-osseous Active Medications - Current Medications Current Medications: Generic Name Dose Route Start Last Admin Trade Name Freq PRN Reason Stop Dose Admin Lipase/Protease/Amylase 1 each 03/08/20 09:00 Pancrejoanna Card 10,500 Unit FEEDTUBE PRN PRN For Clogged Feeding Tube Dextrose 0 ml 03/05/20 12:09 03/09/20 06:09 D50w (25gm) Syringe IV 50 ml Q30MIN PRN Administration Hypoglycemia Protocol Sodium Bicarbonate 75 meq/ 1,075 mls @ 75 mls/hr 03/09/20 14:00 03/09/20 13:58 Dextrose IV 75 mls/hr DIRECT SHAHLA Administration Insulin Human Lispro 0 unit 03/07/20 01:00 03/10/20 06:24 Humalog SUB-Q 6 unit Q6HR SHAHLA Administration Protocol Simple Syrup 15 ml 03/08/20 09:00 Simple Syrup FEEDTUBE PRN PRN Hypoglycemia Simple Syrup 30 ml 03/08/20 09:00 Simple Syrup FEEDTUBE PRN PRN Hypoglycemia Sodium Bicarbonate 325 mg 03/08/20 09:00 Sodium Bicarbonate FEEDTUBE PRN PRN For Clogged Feeding Tube Sodium Chloride 10 ml 03/05/20 22:00 03/10/20 00:00 Sodium Chloride Flush Syringe 10 Ml IV Not Given BID SHAHLA Sodium Chloride 10 ml 03/05/20 12:13 Sodium Chloride Flush Syringe 10 Ml IV PRN PRN LINE FLUSH Nutrition/Malnutrition Assess - Dietary Evaluation Nutrition/Malnutrition Findings: Nutrition Notes Start: 03/06/20 12:14 Freq: Status: Active Protocol: Document 03/08/20 08:43 LM (Rec: 03/08/20 08:51 LM [id number]) Nutrition Notes Need for Assessment generated from: MD Order Initial or Follow up Reassessment Current Diagnosis Acute Kidney Injury,Decubitus( Pressure Ulcer),Diabetes, Sepsis,Respiratory Failure, Hyperlipidemia Other Pertinent Diagnosis dementia, debility, encephalopathy, heel and sacral PU Current Diet NPO Labs/Tests BUN 33 Cr 2.4 Pertinent Medications D5NS at 75ml/hr Height 5 ft 3 in Weight 63.5 kg [place] Body Weight (kg) 52.27 BMI 24.7 Weight Status Appropriate Subjective/Other Information MD consult for TF. Pt has been extubated and failed MAILROOM COURIER eval . Burn Absent Trauma Absent Current % PO Negligible Minimum of two criteria No physical signs of malnutrition #2 Nutrition Diagnosis Increased nutrient needs ( specify in comment below) Diagnosis Progress(for reassessment Continues documentation) #1 Nutrition Diagnosis Inadequate oral intake Etiology failed MAILROOM COURIER eval Diagnosis Progress(for reassessment Continues documentation) Is patient on ventilator? No Is Patient Ambulatory and/or Out of Bed No REE-([facility]-confined to bed) [phone] Calculation Used for Recommendations [facility] Additional Notes Protein: 51-96g (0.8-1.5g/kg) RACH and wounds Fluid: 1ml/kcal Nutrition Intervention Change Diet Order: TF Nutrition Support: Nepro 1.8 at 35ml/hr Flush 150ml q4h Kcal 1,512 Protein (gm) 68 Fluid (mL) 611 Goal #1 TF start/toleranc Anticipated Discharge Needs: unable to determine at this time Follow-Up By: 03/11/20 Additional Comments F/U for TF start/tolerance
--- NOTE | 2020-03-10 10:45 | Progress Note ---
Assessment and Plan 1. Acute kidney injury: Vasomotor RACH in the setting of DKA. Renal US ordered. Creatinine level continue to increase. Monitor renal function. Continue IV fluids. Unable to give Heparin / Lovenox due to anemia and thrombocytopenia. Renal prognosis is guarded. Avoid nephrotoxic agents. Meds dosage based on GFR. No labs from today, d/w RN. 2. FEN: Hyperchloremic metabolic acidosis, bicarb drip, monitor. Monitor lytes and volume status. 3. Acute hypoxic respiratory failure: S/p extubated. NC O2. Followed by Pulmonary. 4. COVID-19 infection. Follow cultures. 5. Sepsis with shock, POA: 2/2 COVID-19 infection. BP is better. 6. Anemia: S/p PRBC. 7. DM type 2. 8. HTN: Monitor BP. 9. Metabolic encephalopathy, POA. - Subjective: Patient was seen and examined at the bedside. - General Appearance General appearance: appears stated age, not in distress, appears chronically ill, on NC O2, NG tube HEENT: ATNC, CAITY Neck: Trachea midline Respiratory: appears ctab Cardiology: regular, S1S2, no murmur Gastrointestinal: normoactive bowel sounds, not tender, not distended Integumentary: no rash, warm and dry Neurologic: alert, not following any command, non-verbal Ext: trace dependent edema : Verma catheter Subjective Date of service: 03/10/20 Principal diagnosis: Septic shock acute respiratory failure Objective - Vital Signs Vital signs: Vital Signs - 12hr 03/10/20 05:19 Temperature 97.6 F Pulse Rate 85 Respiratory 20 Rate Blood Pressure 127/59 O2 Sat by Pulse 100 Oximetry - Lab 03/09/20 10:35 03/09/20 10:35 Most recent lab results ABG pH 7.470 pH Units (7.350-7.450) H 03/06/20 08:42 ABG pCO2 21.5 mm Hg 03/06/20 08:42 ABG pO2 451.0 mm Hg (80.0-90.0) H 03/06/20 08:42 ABG HCO3 15.3 mmol/L (20.0-26.0) L 03/06/20 08:42 ABG O2 Saturation 99.6 % (95.0-99.0) H 03/06/20 08:42 Calcium 7.3 mg/dL (8.4-10.2) L 03/09/20 10:35 Phosphorus 6.90 mg/dL (2.5-4.5) H 03/05/20 11:18 Magnesium 1.80 mg/dL (1.7-2.3) 03/05/20 11:18 Urine Creatinine 19.3 mg/dL (0.1-20.0) 03/08/20 11:41 Urine Sodium 71 mmol/L 03/08/20 11:41 Medications & Allergies - Medications Allergies/Adverse Reactions: Allergies No Known Allergies Allergy (Verified 02/26/20 10:24) Home Medications: Home Medications Medication Instructions Recorded Confirmed Last Taken Type Citalopram [Celexa] 20 mg PO QDAY 01/25/20 03/06/20 Unknown History Pravastatin [Pravachol] 40 mg PO QHS 01/25/20 03/06/20 Unknown History Acetaminophen [Mapap] 650 mg PO BID PRN 02/26/20 03/06/20 Unknown History Ascorbic Acid [Vitamin C with Chetna 500 mg PO DAILY 02/26/20 03/06/20 Unknown History Hips] Glimepiride [Amaryl] 4 mg PO QAM 02/26/20 03/06/20 Unknown History Insulin Lispro [Humalog] 5 units SQ AC 02/26/20 03/06/20 Unknown History Multivit-Min/Ferrous Fumarate 15 mg PO DAILY 02/26/20 03/06/20 Unknown History [Multivitamin with Minerals Tab] Apixaban [Eliquis] 2.5 mg PO BID #30 tablet 03/01/20 03/06/20 Unknown Rx Insulin Glargine [Lantus VIAL] 15 units SUB-Q BID #100 units 03/01/20 03/06/20 Unknown Rx levoFLOXacin [Levaquin TAB] 500 mg PO QDAY #3 tablet 03/01/20 03/06/20 Unknown Rx Active Medications: Generic Name Dose Route Start Last Admin Trade Name Freq PRN Reason Stop Dose Admin Lipase/Protease/Amylase 1 each 03/08/20 09:00 Michi Card 10,500 Unit FEEDTUBE PRN PRN For Clogged Feeding Tube Dextrose 0 ml 03/05/20 12:09 03/09/20 06:09 D50w (25gm) Syringe IV 50 ml Q30MIN PRN Administration Hypoglycemia Protocol Sodium Bicarbonate 75 meq/ 1,075 mls @ 75 mls/hr 03/09/20 14:00 03/09/20 13:58 Dextrose IV 75 mls/hr DIRECT SHAHLA Administration Insulin Human Lispro 0 unit 03/07/20 01:00 03/10/20 06:24 Humalog SUB-Q 6 unit Q6HR SHAHLA Administration Protocol Simple Syrup 15 ml 03/08/20 09:00 Simple Syrup FEEDTUBE PRN PRN Hypoglycemia Simple Syrup 30 ml 03/08/20 09:00 Simple Syrup FEEDTUBE PRN PRN Hypoglycemia Sodium Bicarbonate 325 mg 03/08/20 09:00 Sodium Bicarbonate FEEDTUBE PRN PRN For Clogged Feeding Tube Sodium Chloride 10 ml 03/05/20 22:00 03/10/20 10:38 Sodium Chloride Flush Syringe 10 Ml IV 10 ml BID SHAHLA Administration Sodium Chloride 10 ml 03/05/20 12:13 Sodium Chloride Flush Syringe 10 Ml IV PRN PRN LINE FLUSH
[2020-03-10 14:34] LABS: Basophils # (Auto) 0.1 K/mm3 (0.0-0.1); Basophils % (Auto) 0.8 % (0.0-1.8); Eosinophils % (Auto) 0.6 % (0.0-4.3); Hematocrit 25.9 % (30.3-42.9); Hemoglobin 8.6 gm/dl (10.1-14.3); Lymphocytes # (Auto) 1.2 K/mm3 (1.2-5.4); Lymphocytes % (Auto) 17.7 % (13.4-35.0); Mean Corpuscular HGB Conc 33 % (30-34); Mean Corpuscular Volume 92 fl (79-97); Monocytes # (Auto) 0.7 K/mm3 (0.0-0.8); Monocytes % (Auto) 10.4 % (0.0-7.3); Red Blood Count 2.81 M/mm3 (3.65-5.03); Red Cell Distribution Width 16.3 % (13.2-15.2)
[2020-03-10 14:35] LABS: Platelet Count 98 K/mm3 (140-440)
[2020-03-10 14:53] LABS: Calcium 7.8 mg/dL (8.4-10.2)
[2020-03-10] MEDS ORDERED: PHOS-NAK POWDER PACKET PO ONE (23:00)
[2020-03-10] MEDS: SODIUM BICARBONATE 75 MEQ in DEXTROSE 5% IN WATER 1,000 ML IV SCH (23:49)
[2020-03-11] MEDS: INSULIN LISPRO 100 UNIT/ML VIAL 3 mL SUB-Q SCH ×4 (06:06→23:13)
--- NOTE | 2020-03-11 08:43 | Progress Note ---
Assessment and Plan Assessment and plan: Septic shock Patient with septic shock secondary to UTI and pneumonia. Patient has leukocytosis as well as fever. Currently on pressor support. Patient did improve somewhat was able to extubate today. Patient DKA also improved with treatment of underlying etiology of infection. Responding pressor support and aggressive IV volume replacement. Continue cefepime and vancomycin. Follow any ID recommend further ID recommendations. Acute hypoxemic respiratory failure Patient now extubated most likely was secondary to infection and uremia metaboli c acidosis. Acute kidney injury (RACH) with acute tubular necrosis (ATN) Patient with acute kidney injury. Vasomotor RACH in the setting of DKA. DKA (diabetic ketoacidoses) Patient DKA has resolved now most likely underlying sepsis infection. Will place patient on 70/30 insulin 15 units a.m. 10 units p.m. DVT prophylaxis Hyponatremia syndrome Hyponatremia has resolved Toxic Metabolic encephalopathy Metabolic encephalopathy multifactorial underlying dementia exacerbated by sepsis and hypoxemia. COVID 19 Pneumonia Patient is positive for COVID-19 infection. 03/08/2020. Patient with hypoglycemia yesterday and insulin schedule discontinued. Dobbhoff tube placement for tube feedings. Speech therapy reports high aspiration risk. Pulmonary had discussion with family to consider AND. Overall prognosis is guarded to poor. Strongly suggest considering palliative care/hospice with this patient while at the [place] [facility]. Patient with hemoglobin 6.5. Type and cross and transfuse 1 unit PRBCs. Check iron studies. 03/09/2020. Patient currently satting 98% on room air. Follow-up bilateral renal ultrasound for acute kidney injury. Nephrology following. COVID+ testing from 03/05/2020. However, patient with no hypoxia. Recheck inflammatory markers. Consider ID consultation. Pulmonary following. 03/10/2020. Patient with tube feeding in place and dietitian following with regards to feeding. Patient is s/p PRBCs of 1 unit. Hemoglobin improved to 8.7. Continue to follow CBC. Creatinine continues to worsen. Await renal u ltrasound. Continue IV fluid hydration. 03/11/2020. Continue IV fluid hydration per nephrology. Creatinine appears to continue to worsen. Etiology likely secondary to acute kidney injury from vaso motor nephropathy. Still awaiting renal ultrasound. If unable to obtain,will consider CT of the abdomen/pelvis to rule out obstruction. Patient with COVID- 19 infection but not hypoxic. Patient satting 98% on room air. Hemoglobin has stabilized at 8.6 s/p PRBCs. History Interval history: 54-year-old with acute metabolic encephalopathy multifactorial DKA and septic shock and acute respiratory failure. Hospitalist Physical - Constitutional Vitals: Temp Pulse Resp BP Pulse Ox 97.5 F L 68 20 114/73 92 03/11/20 07:00 03/11/20 07:00 03/11/20 07:00 03/11/20 07:00 03/11/20 07:00 General appearance: Present: mild distress - EENT Eyes: Present: PERRL, EOM intact ENT: hearing intact, clear oral mucosa, dentition normal - Neck Neck: Present: supple, normal ROM - Respiratory Respiratory effort: normal Respiratory: bilateral: CTA - Cardiovascular Rhythm: regular Heart Sounds: Present: S1 & S2. Absent: gallop, rub - Extremities Extremities: no ischemia, No edema, Full ROM - Abdominal General gastrointestinal: soft, non-tender, non-distended, normal bowel sounds - Integumentary Integumentary: Present: clear, warm, dry - Neurologic Neurologic: CNII-XII intact, moves all extremities Results - Labs CBC & Chem 7: 03/10/20 Unknown 03/10/20 Unknown Labs: Laboratory Last Values WBC 6.8 K/mm3 (4.5-11.0) 03/10/20 Unknown RBC 2.81 M/mm3 (3.65-5.03) L 03/10/20 Unknown Hgb 8.6 gm/dl (10.1-14.3) L 03/10/20 Unknown Hct 25.9 % (30.3-42.9) L 03/10/20 Unknown MCV 92 fl (79-97) 03/10/20 Unknown MCH 31 pg (28-32) 03/10/20 Unknown MCHC 33 % (30-34) 03/10/20 Unknown RDW 16.3 % (13.2-15.2) H 03/10/20 Unknown Plt Count 98 K/mm3 (140-440) L 03/10/20 Unknown Lymph % (Auto) 17.7 % (13.4-35.0) 03/10/20 Unknown Rogers % (Auto) 10.4 % (0.0-7.3) H 03/10/20 Unknown Eos % (Auto) 0.6 % (0.0-4.3) 03/10/20 Unknown Baso % (Auto) 0.8 % (0.0-1.8) 03/10/20 Unknown Lymph # 1.2 K/mm3 (1.2-5.4) 03/10/20 Unknown Rogers # 0.7 K/mm3 (0.0-0.8) 03/10/20 Unknown Eos # 0.0 K/mm3 (0.0-0.4) 03/10/20 Unknown Baso # 0.1 K/mm3 (0.0-0.1) 03/10/20 Unknown Add Manual Diff Complete 03/05/20 11:20 Total Counted 100 03/05/20 11:20 Seg Neutrophils % 70.5 % (40.0-70.0) H 03/10/20 Unknown Seg Neuts % (Manual) 95.0 % (40.0-70.0) H 03/05/20 11:20 Band Neutrophils % 0 % 03/05/20 11:20 Lymphocytes % (Manual) 2.0 % (13.4-35.0) L 03/05/20 11:20 Reactive Lymphs % (Man) 0 % 03/05/20 11:20 Monocytes % (Manual) 3.0 % (0.0-7.3) 03/05/20 11:20 Eosinophils % (Manual) 0 % (0.0-4.3) 03/05/20 11:20 Basophils % (Manual) 0 % (0.0-1.8) 03/05/20 11:20 Metamyelocytes % 0 % 03/05/20 11:20 Myelocytes % 0 % 03/05/20 11:20 Promyelocytes % 0 % 03/05/20 11:20 Blast Cells % 0 % 03/05/20 11:20 Nucleated RBC % Not Reportable 03/05/20 11:20 Seg Neutrophils # 4.8 K/mm3 (1.8-7.7) 03/10/20 Unknown Seg Neutrophils # Man 18.4 K/mm3 (1.8-7.7) H 03/05/20 11:20 Band Neutrophils # 0.0 K/mm3 03/05/20 11:20 Lymphocytes # (Manual) 0.4 K/mm3 (1.2-5.4) L 03/05/20 11:20 Abs React Lymphs (Man) 0.0 K/mm3 03/05/20 11:20 Monocytes # (Manual) 0.6 K/mm3 (0.0-0.8) 03/05/20 11:20 Eosinophils # (Manual) 0.0 K/mm3 (0.0-0.4) 03/05/20 11:20 Basophils # (Manual) 0.0 K/mm3 (0.0-0.1) 03/05/20 11:20 Metamyelocytes # 0.0 K/mm3 03/05/20 11:20 Myelocytes # 0.0 K/mm3 03/05/20 11:20 Promyelocytes # 0.0 K/mm3 03/05/20 11:20 Blast Cells # 0.0 K/mm3 03/05/20 11:20 WBC Morphology Not Reportable 03/05/20 11:20 Hypersegmented Neuts Not Reportable 03/05/20 11:20 Hyposegmented Neuts Not Reportable 03/05/20 11:20 Hypogranular Neuts Not Reportable 03/05/20 11:20 Smudge Cells Not Reportable 03/05/20 11:20 Toxic Granulation Not Reportable 03/05/20 11:20 Toxic Vacuolation Not Reportable 03/05/20 11:20 Dohle Bodies Not Reportable 03/05/20 11:20 Pelger-Huet Anomaly Not Reportable 03/05/20 11:20 Jamia Rods Not Reportable 03/05/20 11:20 Platelet Estimate Consistent w auto 03/05/20 11:20 Clumped Platelets Not Reportable 03/05/20 11:20 Plt Clumps, EDTA Not Reportable 03/05/20 11:20 Large Platelets Not Reportable 03/05/20 11:20 Giant Platelets Not Reportable 03/05/20 11:20 Platelet Satelliting Not Reportable 03/05/20 11:20 Plt Morphology Comment Not Reportable 03/05/20 11:20 RBC Morphology Not Reportable 03/05/20 11:20 Dimorphic RBCs Not Reportable 03/05/20 11:20 Polychromasia Not Reportable 03/05/20 11:20 Hypochromasia Not Reportable 03/05/20 11:20 Poikilocytosis Not Reportable 03/05/20 11:20 Anisocytosis 1+ 03/05/20 11:20 Microcytosis Few 03/05/20 11:20 Macrocytosis Few 03/05/20 11:20 Spherocytes Not Reportable 03/05/20 11:20 Pappenheimer Bodies Not Reportable 03/05/20 11:20 Sickle Cells Not Reportable 03/05/20 11:20 Target Cells Not Reportable 03/05/20 11:20 Tear Drop Cells Not Reportable 03/05/20 11:20 Ovalocytes Not Reportable 03/05/20 11:20 Helmet Cells Not Reportable 03/05/20 11:20 Galvan-[place] Bodies Not Reportable 03/05/20 11:20 Irwin Rings Not Reportable 03/05/20 11:20 Luis Cells Not Reportable 03/05/20 11:20 Bite Cells Not Reportable 03/05/20 11:20 Crenated Cell Not Reportable 03/05/20 11:20 Elliptocytes Not Reportable 03/05/20 11:20 Acanthocytes (Spur) Not Reportable 03/05/20 11:20 Rouleaux Not Reportable 03/05/20 11:20 Hemoglobin C Crystals Not Reportable 03/05/20 11:20 Schistocytes Not Reportable 03/05/20 11:20 Malaria parasites Not Reportable 03/05/20 11:20 Felice Bodies Not Reportable 03/05/20 11:20 Hem Pathologist Commnt No 03/05/20 11:20 D-Dimer 544.72 ng/mlDDU (0-234) H 03/09/20 10:01 ABG pH 7.470 pH Units (7.350-7.450) H 03/06/20 08:42 ABG pCO2 21.5 mm Hg 03/06/20 08:42 ABG pO2 451.0 mm Hg (80.0-90.0) H 03/06/20 08:42 ABG HCO3 15.3 mmol/L (20.0-26.0) L 03/06/20 08:42 ABG O2 Saturation 99.6 % (95.0-99.0) H 03/06/20 08:42 ABG O2 Content 12.0 (0.0-44) 03/06/20 08:42 ABG Base Excess -7.3 mmol/L (-2.0-3.0) L 03/06/20 08:42 ABG Hemoglobin 7.7 gm/dl (12.0-16.0) L 03/06/20 08:42 ABG Carboxyhemoglobin 0.9 % (0.0-5.0) 03/06/20 08:42 ABG Methemoglobin 0.5 % (0.0-1.5) 03/06/20 08:42 Oxyhemoglobin 98.2 % (95.0-99.0) 03/06/20 08:42 FiO2 100 % 03/06/20 08:42 Sodium 137 mmol/L (137-145) 03/10/20 Unknown Potassium 3.9 mmol/L (3.6-5.0) 03/10/20 Unknown Chloride 106.1 mmol/L (98-107) 03/10/20 Unknown Carbon Dioxide 16 mmol/L (22-30) L 03/10/20 Unknown Anion Gap 19 mmol/L 03/10/20 Unknown BUN 44 mg/dL (7-17) H 03/10/20 Unknown Creatinine 2.9 mg/dL (0.6-1.2) H 03/10/20 Unknown Estimated GFR 17 ml/min 03/10/20 Unknown BUN/Creatinine Ratio 15 % 03/10/20 Unknown Glucose 190 mg/dL (65-100) H 03/10/20 Unknown POC Glucose 334 (70-105) H 03/11/20 06:14 Lactic Acid 4.30 mmol/L (0.7-2.0) H* 03/06/20 14:35 Calcium 7.8 mg/dL (8.4-10.2) L 03/10/20 Unknown Phosphorus 1.80 mg/dL (2.5-4.5) L 03/10/20 Unknown Magnesium 1.80 mg/dL (1.7-2.3) 03/05/20 11:18 Iron 106 ug/dL (37-170) 03/08/20 12:00 TIBC 101 mcg/dL (250-450) L 03/08/20 12:00 Ferritin 835.3 ng/mL (10.0-200.0) H 03/09/20 10:01 Total Bilirubin 0.20 mg/dL (0.1-1.2) 03/08/20 06:55 AST 27 units/L (5-40) 03/08/20 06:55 ALT 23 units/L (7-56) 03/08/20 06:55 Alkaline Phosphatase 135 units/L (35-129) H 03/08/20 06:55 Lactate Dehydrogenase 460 units/L (91-180) H 03/09/20 10:01 C-Reactive Protein 3.50 mg/dL (0.00-1.30) H 03/09/20 10:01 Total Protein 3.9 g/dL (6.3-8.2) L 03/08/20 06:55 Albumin 1.7 g/dL (3.9-5) L 03/08/20 06:55 Albumin/Globulin Ratio 0.8 % 03/08/20 06:55 Vitamin B12 1453 pg/mL (211-911) H 03/09/20 00:20 Folate 8.06 ng/mL (7.3-26.0) 03/09/20 00:20 Procalcitonin 10.61 ng/mL (<0.15) 03/09/20 Unknown Urine Color Yellow (Yellow) 03/06/20 Unknown Urine Turbidity Cloudy (Clear) 03/06/20 Unknown Urine pH 5.0 (5.0-7.0) 03/06/20 Unknown Ur Specific [place] 1.009 (1.003-1.030) 03/06/20 Unknown Urine Protein <15 mg/dl mg/dL (Negative) 03/06/20 Unknown Urine Glucose (UA) >=500 mg/dL (Negative) 03/06/20 Unknown Urine Ketones 20 mg/dL (Negative) 03/06/20 Unknown Urine Blood Sm (Negative) 03/06/20 Unknown Urine Nitrite Neg (Negative) 03/06/20 Unknown Urine Bilirubin Neg (Negative) 03/06/20 Unknown Urine Urobilinogen < 2.0 mg/dL (<2.0) 03/06/20 Unknown Ur Leukocyte Esterase Neg (Negative) 03/06/20 Unknown Urine WBC (Auto) 2.0 /HPF (0.0-6.0) 03/06/20 Unknown Urine RBC (Auto) > 182.0 /HPF (0.0-6.0) 03/06/20 Unknown Urine Bacteria (Auto) 1+ /HPF (Negative) 03/06/20 Unknown Urine Yeast (Budding) 3+ /HPF 03/06/20 Unknown Urine Creatinine 19.3 mg/dL (0.1-20.0) 03/08/20 11:41 Urine Sodium 71 mmol/L 03/08/20 11:41 Nasal Screen MRSA (PCR) Negative (Negative) 03/06/20 02:50 Coronavirus (PCR) Positive (Negative) A 03/05/20 Unknown Blood Type O POSITIVE 03/09/20 00:20 Antibody Screen Negative 03/09/20 00:20 Crossmatch See Detail 03/09/20 00:20 Microbiology: Microbiology 03/05/20 11:20 Peripheral/Venous Blood Culture - Final NO GROWTH AFTER 5 DAYS 03/05/20 11:20 Peripheral/Venous Blood Culture - Final NO GROWTH AFTER 5 DAYS Verma/IV: Voiding Method Indwelling Catheter IV Catheter Type [Right Triple Lumen Cath Internal Jugular] IV Catheter Type [Right Leg] Intra-osseous IV Catheter Type [Left Leg] Intra-osseous Active Medications - Current Medications Current Medications: Generic Name Dose Route Start Last Admin Trade Name Freq PRN Reason Stop Dose Admin Lipase/Protease/Amylase 1 each 03/08/20 09:00 Pancrejoanna Card 10,500 Unit FEEDTUBE PRN PRN For Clogged Feeding Tube Dextrose 0 ml 03/05/20 12:09 03/09/20 06:09 D50w (25gm) Syringe IV 50 ml Q30MIN PRN Administration Hypoglycemia Protocol Sodium Bicarbonate 75 meq/ 1,075 mls @ 75 mls/hr 03/09/20 14:00 03/10/20 23:49 Dextrose IV 75 mls/hr DIRECT SHAHLA Administration Insulin Human Lispro 0 unit 03/07/20 01:00 03/11/20 06:06 Humalog SUB-Q 6 unit Q6HR SHAHLA Administration Protocol Simple Syrup 15 ml 03/08/20 09:00 Simple Syrup FEEDTUBE PRN PRN Hypoglycemia Simple Syrup 30 ml 03/08/20 09:00 Simple Syrup FEEDTUBE PRN PRN Hypoglycemia Sodium Bicarbonate 325 mg 03/08/20 09:00 Sodium Bicarbonate FEEDTUBE PRN PRN For Clogged Feeding Tube Sodium Chloride 10 ml 03/05/20 22:00 03/10/20 23:34 Sodium Chloride Flush Syringe 10 Ml IV 10 ml BID SHAHLA Administration Sodium Chloride 10 ml 03/05/20 12:13 Sodium Chloride Flush Syringe 10 Ml IV PRN PRN LINE FLUSH Nutrition/Malnutrition Assess - Dietary Evaluation Nutrition/Malnutrition Findings: Nutrition Notes Start: 03/06/20 12:14 Freq: Status: Active Protocol: Document 03/08/20 08:43 LM (Rec: 03/08/20 08:51 LM [id number]) Nutrition Notes Need for Assessment generated from: MD Order Initial or Follow up Reassessment Current Diagnosis Acute Kidney Injury,Decubitus( Pressure Ulcer),Diabetes, Sepsis,Respiratory Failure, Hyperlipidemia Other Pertinent Diagnosis dementia, debility, encephalopathy, heel and sacral PU Current Diet NPO Labs/Tests BUN 33 Cr 2.4 Pertinent Medications D5NS at 75ml/hr Height 5 ft 3 in Weight 63.5 kg [place] Body Weight (kg) 52.27 BMI 24.7 Weight Status Appropriate Subjective/Other Information MD consult for TF. Pt has been extubated and failed TUBE DRAW HELPER eval . Burn Absent Trauma Absent Current % PO Negligible Minimum of two criteria No physical signs of malnutrition #2 Nutrition Diagnosis Increased nutrient needs ( specify in comment below) Diagnosis Progress(for reassessment Continues documentation) #1 Nutrition Diagnosis Inadequate oral intake Etiology failed TUBE DRAW HELPER eval Diagnosis Progress(for reassessment Continues documentation) Is patient on ventilator? No Is Patient Ambulatory and/or Out of Bed No REE-([place]-confined to bed) [phone] Calculation Used for Recommendations [facility] Additional Notes Protein: 51-96g (0.8-1.5g/kg) RACH and wounds Fluid: 1ml/kcal Nutrition Intervention Change Diet Order: TF Nutrition Support: Nepro 1.8 at 35ml/hr Flush 150ml q4h Kcal 1,512 Protein (gm) 68 Fluid (mL) 611 Goal #1 TF start/toleranc Anticipated Discharge Needs: unable to determine at this time Follow-Up By: 03/11/20 Additional Comments F/U for TF start/tolerance
[2020-03-11 09:36] LABS: Calcium 7.5 mg/dL (8.4-10.2)
[2020-03-11] MEDS: SODIUM BICARBONATE 75 MEQ in DEXTROSE 5% IN WATER 1,000 ML IV SCH (14:50)
--- NOTE | 2020-03-11 14:54 | Progress Note ---
Assessment and Plan 1. Acute kidney injury: Vasomotor RACH in the setting of DKA. Renal US ordered. Creatinine level continue to increase. Monitor renal function. Continue IV fluids. Unable to give Heparin / Lovenox due to anemia and thrombocytopenia. Renal prognosis is guarded. Avoid nephrotoxic agents. Meds dosage based on GFR. 2. FEN: Hyperchloremic metabolic acidosis, bicarb drip, monitor. Replete Phos. Monitor lytes and volume status. 3. Acute hypoxic respiratory failure: S/p extubated. NC O2. Followed by Pulmonary. 4. COVID-19 infection. Follow cultures. 5. Sepsis with shock, POA: 2/2 COVID-19 infection. BP is better. 6. Anemia: S/p PRBC. 7. DM type 2, uncontrolled: IV fluids changed to bicarbonate drip in sterile water. 8. HTN: Monitor BP. 9. Metabolic encephalopathy, POA. - Subjective: Patient was seen and examined at the bedside. - General Appearance General appearance: appears stated age, not in distress, appears chronically ill, on NC O2, NG tube HEENT: ATNC, CAITY Neck: Trachea midline Respiratory: appears ctab Cardiology: regular, S1S2, no murmur Gastrointestinal: normoactive bowel sounds, not tender, not distended Integumentary: no rash, warm and dry Neurologic: alert, not following any command, non-verbal Ext: trace dependent edema : Verma catheter Subjective Date of service: 03/11/20 Principal diagnosis: Septic shock acute respiratory failure Objective - Vital Signs Vital signs: Vital Signs - 12hr 03/11/20 03/11/20 07:00 10:58 Temperature 97.5 F L 97.9 F Pulse Rate 68 80 Respiratory 20 20 Rate Blood Pressure 117/61 Blood Pressure 114/73 [Right] O2 Sat by Pulse 92 98 Oximetry - Lab 03/10/20 Unknown 03/11/20 09:01 Most recent lab results ABG pH 7.470 pH Units (7.350-7.450) H 03/06/20 08:42 ABG pCO2 21.5 mm Hg 03/06/20 08:42 ABG pO2 451.0 mm Hg (80.0-90.0) H 03/06/20 08:42 ABG HCO3 15.3 mmol/L (20.0-26.0) L 03/06/20 08:42 ABG O2 Saturation 99.6 % (95.0-99.0) H 03/06/20 08:42 Calcium 7.5 mg/dL (8.4-10.2) L 03/11/20 09:01 Phosphorus 2.20 mg/dL (2.5-4.5) L D 03/11/20 09:01 Magnesium 1.80 mg/dL (1.7-2.3) 03/05/20 11:18 Urine Creatinine 19.3 mg/dL (0.1-20.0) 03/08/20 11:41 Urine Sodium 71 mmol/L 03/08/20 11:41 Medications & Allergies - Medications Allergies/Adverse Reactions: Allergies No Known Allergies Allergy (Verified 02/26/20 10:24) Home Medications: Home Medications Medication Instructions Recorded Confirmed Last Taken Type Citalopram [Celexa] 20 mg PO QDAY 01/25/20 03/06/20 Unknown History Pravastatin [Pravachol] 40 mg PO QHS 01/25/20 03/06/20 Unknown History Acetaminophen [Mapap] 650 mg PO BID PRN 02/26/20 03/06/20 Unknown History Ascorbic Acid [Vitamin C with Chetna 500 mg PO DAILY 02/26/20 03/06/20 Unknown History Hips] Glimepiride [Amaryl] 4 mg PO QAM 02/26/20 03/06/20 Unknown History Insulin Lispro [Humalog] 5 units SQ AC 02/26/20 03/06/20 Unknown History Multivit-Min/Ferrous Fumarate 15 mg PO DAILY 02/26/20 03/06/20 Unknown History [Multivitamin with Minerals Tab] Apixaban [Eliquis] 2.5 mg PO BID #30 tablet 03/01/20 03/06/20 Unknown Rx Insulin Glargine [Lantus VIAL] 15 units SUB-Q BID #100 units 03/01/20 03/06/20 Unknown Rx levoFLOXacin [Levaquin TAB] 500 mg PO QDAY #3 tablet 03/01/20 03/06/20 Unknown Rx Active Medications: Generic Name Dose Route Start Last Admin Trade Name Freq PRN Reason Stop Dose Admin Lipase/Protease/Amylase 1 each 03/08/20 09:00 Michi Card 10,500 Unit FEEDTUBE PRN PRN For Clogged Feeding Tube Dextrose 0 ml 03/05/20 12:09 03/09/20 06:09 D50w (25gm) Syringe IV 50 ml Q30MIN PRN Administration Hypoglycemia Protocol Insulin Human Lispro 0 unit 03/07/20 01:00 03/11/20 13:47 Humalog SUB-Q 8 unit Q6HR SHAHLA Administration Protocol Simple Syrup 15 ml 03/08/20 09:00 Simple Syrup FEEDTUBE PRN PRN Hypoglycemia Simple Syrup 30 ml 03/08/20 09:00 Simple Syrup FEEDTUBE PRN PRN Hypoglycemia Sodium Bicarbonate 325 mg 03/08/20 09:00 Sodium Bicarbonate FEEDTUBE PRN PRN For Clogged Feeding Tube Sodium Chloride 10 ml 03/05/20 22:00 03/11/20 09:20 Sodium Chloride Flush Syringe 10 Ml IV 10 ml BID SHAHLA Administration Sodium Chloride 10 ml 03/05/20 12:13 Sodium Chloride Flush Syringe 10 Ml IV PRN PRN LINE FLUSH
[2020-03-11] MEDS ORDERED: SODIUM BICARBONATE 150 MEQ in /WATER, STERILE 1,000 SYR IV SCH (15:00)
[2020-03-11] MEDS: K-PHOS NEUTRAL 250 MG TAB FEEDTUBE ONE ×2 (17:41→18:57)
[2020-03-11] MEDS ORDERED: PHOS-NAK POWDER PACKET PO ONE ×2 (18:30→23:30)
[2020-03-11] MEDS: SODIUM BICARBONATE 150 MEQ in WATER FOR INJECTION (PF) 1,000 ML IV SCH (22:09)
[2020-03-12] MEDS: INSULIN LISPRO 100 UNIT/ML VIAL 3 mL SUB-Q SCH ×4 (05:40→18:26)
--- NOTE | 2020-03-12 07:57 | Progress Note ---
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 Pt is nonverbal and unable to provide history. Patient history taken from EMS staff, ED staff, and [facility] staff. As per staff the patient was found to be ill-appearing this morning, and was breathing fast. EMS was notified and upon arrival the patient was found to be in distress and subsequently transported to [facility] for further care and evaluation of the aforementioned symptoms. Patient seen and evaluated in the emergency d epartment. Lab and imaging studies reviewed. Patient found to have sepsis complicated by septic shock, acute hypoxemic respiratory failure, metabolic acidosis, metabolic encephalopathy, acute kidney injury, and hyponatremia. Patient initiated on sepsis protocol and admitted to ICU due to increased risk for decompensation. Critical care team consult placed in the emergency department. No further history is obtainable. Prior admission on 02/26/2020 reviewed. All medication listed at time of admission has been reconciled. Advanced care planning conducted in the emergency department. Intermittent Hx: 54-year-old with acute metabolic encephalopathy multifactorial DKA and septic shock and acute respiratory failure recently extubated but continues with worsening Renal function. Septic shock Patient with septic shock secondary to UTI and pneumonia. Patient has leukocytosis as well as fever. Currently on pressor support. Patient did improve somewhat was able to extubate today. Patient DKA also improved with treatment of underlying etiology of infection. Responding pressor support and aggressive IV volume replacement. Continue cefepime and vancomycin. Follow any ID recommend further ID recommendations. Acute hypoxemic respiratory failure Patient now extubated most likely was secondary to infection and uremia metabolic acidosis. Acute kidney injury (RACH) with acute tubular necrosis (ATN) Patient with acute kidney injury. Vasomotor RACH in the setting of DKA. DKA (diabetic ketoacidoses) Patient DKA has resolved now most likely underlying sepsis infection. Will place patient on 70/30 insulin 15 units a.m. 10 units p.m. Hyponatremia syndrome Hyponatremia has resolved Toxic Metabolic encephalopathy Metabolic encephalopathy multifactorial underlying dementia exacerbated by sepsis and hypoxemia. Hyperchloremic metabolic acidosis, bicarb drip, monitor. Replete Phos. Monitor lytes and volume status. Anemia: S/p PRBC. COVID 19 Pneumonia Patient is positive for COVID-19 infection. DM type 2, uncontrolled: IV fluids changed to bicarbonate drip in sterile water. DVT prophylaxis 03/08/2020. Patient with hypoglycemia yesterday and insulin schedule discontinued. Dobbhoff tube placement for tube feedings. Speech therapy reports high aspiration risk. Pulmonary had discussion with family to consider AND. Overall prognosis is guarded to poor. Strongly suggest considering palliative care/hospice with this patient while at the group home. Patient with hemoglobin 6.5. Type and cross and transfuse 1 unit PRBCs. Check iron studies. 03/09/2020. Patient currently satting 98% on room air. Follow-up bilateral renal ultrasound for acute kidney injury. Nephrology following. COVID+ testing from 03/05/2020. However, patient with no hypoxia. Recheck inflammatory markers. Consider ID consultation. Pulmonary following. 03/10/2020. Patient with tube feeding in place and dietitian following with regards to feeding. Patient is s/p PRBCs of 1 unit. Hemoglobin improved to 8.7. Continue to follow CBC. Creatinine continues to worsen. Await renal ultrasound. Continue IV fluid hydration. 03/11/2020. Continue IV fluid hydration per nephrology. Creatinine appears to continue to worsen. Etiology likely secondary to acute kidney injury from vasomotor nephropathy. Still awaiting renal ultrasound. If unable to obtain,will consider CT of the abdomen/pelvis to rule out obstruction. Patient with COVID-19 infection but not hypoxic. Patient satting 98% on room air. Hemoglobin has stabilized at 8.6 s/p PRBCs. 03/12: Awaiting todays labs. [place] [employer]riants, Discussed Peg placement with sister, Carlota Asif, @[phone]. Continue wound management. Continue current treatment. Renal function unfortunately now recovering nephrology following. History Interval history: Patient seen and examined today, altered sensorium according to nursing staff as he was she was pulling on lines. Currently on tube feeds via Dobbhoff. Hospitalist Physical - Physical exam Narrative exam: VITAL SIGNS: Reviewed. GENERAL: The patient appears normally developed, generalized anasarca, confused vital signs as documented. HEAD: No signs of head trauma. EYES: Pupils are equal. Extraocular motions intact. EARS: Hearing grossly intact. MOUTH: Oropharynx is normal, poor dentition. NECK: No adenopathy, no JVD. CHEST: Chest with diminished breath sounds bilaterally. No wheezes, rales, or rhonchi. CARDIAC: Regular rate and rhythm. S1 and S2, without murmurs, gallops, or rubs. VASCULAR: Positive edema. Peripheral pulses normal and equal in all extremities. ABDOMEN: Soft, non tender and non distended. No rebound or guarding, and no masses palpated. Bowel Sounds normal. MUSCULOSKELETAL: Good range of motion of all major joints. Extremities without clubbing, cyanosis. With bilateral pitting edema +[address] to the thigh. Loose stool NEUROLOGIC EXAM: Lethargic, awake, speech is garbled. PSYCHIATRIC: Mood normal. SKIN: Excoriation in the perianal area secondary to loose stool. Detail exam as documented in skin assessment - Constitutional Vitals: Temp Pulse Resp BP Pulse Ox 98.4 F 82 16 151/69 97 03/12/20 04:17 03/12/20 04:17 03/12/20 04:17 03/12/20 04:17 03/12/20 04:17 General appearance: Present: mild distress Results - Labs CBC & Chem 7: 03/10/20 Unknown 03/11/20 09:01 Labs: Laboratory Last Values WBC 6.8 K/mm3 (4.5-11.0) 03/10/20 Unknown RBC 2.81 M/mm3 (3.65-5.03) L 03/10/20 Unknown Hgb 8.6 gm/dl (10.1-14.3) L 03/10/20 Unknown Hct 25.9 % (30.3-42.9) L 03/10/20 Unknown MCV 92 fl (79-97) 03/10/20 Unknown MCH 31 pg (28-32) 03/10/20 Unknown MCHC 33 % (30-34) 03/10/20 Unknown RDW 16.3 % (13.2-15.2) H 03/10/20 Unknown Plt Count 98 K/mm3 (140-440) L 03/10/20 Unknown Lymph % (Auto) 17.7 % (13.4-35.0) 03/10/20 Unknown Dooly % (Auto) 10.4 % (0.0-7.3) H 03/10/20 Unknown Eos % (Auto) 0.6 % (0.0-4.3) 03/10/20 Unknown Baso % (Auto) 0.8 % (0.0-1.8) 03/10/20 Unknown Lymph # 1.2 K/mm3 (1.2-5.4) 03/10/20 Unknown Dooly # 0.7 K/mm3 (0.0-0.8) 03/10/20 Unknown Eos # 0.0 K/mm3 (0.0-0.4) 03/10/20 Unknown Baso # 0.1 K/mm3 (0.0-0.1) 03/10/20 Unknown Add Manual Diff Complete 03/05/20 11:20 Total Counted 100 03/05/20 11:20 Seg Neutrophils % 70.5 % (40.0-70.0) H 03/10/20 Unknown Seg Neuts % (Manual) 95.0 % (40.0-70.0) H 03/05/20 11:20 Band Neutrophils % 0 % 03/05/20 11:20 Lymphocytes % (Manual) 2.0 % (13.4-35.0) L 03/05/20 11:20 Reactive Lymphs % (Man) 0 % 03/05/20 11:20 Monocytes % (Manual) 3.0 % (0.0-7.3) 03/05/20 11:20 Eosinophils % (Manual) 0 % (0.0-4.3) 03/05/20 11:20 Basophils % (Manual) 0 % (0.0-1.8) 03/05/20 11:20 Metamyelocytes % 0 % 03/05/20 11:20 Myelocytes % 0 % 03/05/20 11:20 Promyelocytes % 0 % 03/05/20 11:20 Blast Cells % 0 % 03/05/20 11:20 Nucleated RBC % Not Reportable 03/05/20 11:20 Seg Neutrophils # 4.8 K/mm3 (1.8-7.7) 03/10/20 Unknown Seg Neutrophils # Man 18.4 K/mm3 (1.8-7.7) H 03/05/20 11:20 Band Neutrophils # 0.0 K/mm3 03/05/20 11:20 Lymphocytes # (Manual) 0.4 K/mm3 (1.2-5.4) L 03/05/20 11:20 Abs React Lymphs (Man) 0.0 K/mm3 03/05/20 11:20 Monocytes # (Manual) 0.6 K/mm3 (0.0-0.8) 03/05/20 11:20 Eosinophils # (Manual) 0.0 K/mm3 (0.0-0.4) 03/05/20 11:20 Basophils # (Manual) 0.0 K/mm3 (0.0-0.1) 03/05/20 11:20 Metamyelocytes # 0.0 K/mm3 03/05/20 11:20 Myelocytes # 0.0 K/mm3 03/05/20 11:20 Promyelocytes # 0.0 K/mm3 03/05/20 11:20 Blast Cells # 0.0 K/mm3 03/05/20 11:20 WBC Morphology Not Reportable 03/05/20 11:20 Hypersegmented Neuts Not Reportable 03/05/20 11:20 Hyposegmented Neuts Not Reportable 03/05/20 11:20 Hypogranular Neuts Not Reportable 03/05/20 11:20 Smudge Cells Not Reportable 03/05/20 11:20 Toxic Granulation Not Reportable 03/05/20 11:20 Toxic Vacuolation Not Reportable 03/05/20 11:20 Dohle Bodies Not Reportable 03/05/20 11:20 Pelger-Huet Anomaly Not Reportable 03/05/20 11:20 Jamia Rods Not Reportable 03/05/20 11:20 Platelet Estimate Consistent w auto 03/05/20 11:20 Clumped Platelets Not Reportable 03/05/20 11:20 Plt Clumps, EDTA Not Reportable 03/05/20 11:20 Large Platelets Not Reportable 03/05/20 11:20 Giant Platelets Not Reportable 03/05/20 11:20 Platelet Satelliting Not Reportable 03/05/20 11:20 Plt Morphology Comment Not Reportable 03/05/20 11:20 RBC Morphology Not Reportable 03/05/20 11:20 Dimorphic RBCs Not Reportable 03/05/20 11:20 Polychromasia Not Reportable 03/05/20 11:20 Hypochromasia Not Reportable 03/05/20 11:20 Poikilocytosis Not Reportable 03/05/20 11:20 Anisocytosis 1+ 03/05/20 11:20 Microcytosis Few 03/05/20 11:20 Macrocytosis Few 03/05/20 11:20 Spherocytes Not Reportable 03/05/20 11:20 Pappenheimer Bodies Not Reportable 03/05/20 11:20 Sickle Cells Not Reportable 03/05/20 11:20 Target Cells Not Reportable 03/05/20 11:20 Tear Drop Cells Not Reportable 03/05/20 11:20 Ovalocytes Not Reportable 03/05/20 11:20 Helmet Cells Not Reportable 03/05/20 11:20 [place] Bodies Not Reportable 03/05/20 11:20 Guild Rings Not Reportable 03/05/20 11:20 Luis Cells Not Reportable 03/05/20 11:20 Bite Cells Not Reportable 03/05/20 11:20 Crenated Cell Not Reportable 03/05/20 11:20 Elliptocytes Not Reportable 03/05/20 11:20 Acanthocytes (Spur) Not Reportable 03/05/20 11:20 Rouleaux Not Reportable 03/05/20 11:20 Hemoglobin C Crystals Not Reportable 03/05/20 11:20 Schistocytes Not Reportable 03/05/20 11:20 Malaria parasites Not Reportable 03/05/20 11:20 Felice Bodies Not Reportable 03/05/20 11:20 Hem Pathologist Commnt No 03/05/20 11:20 D-Dimer 544.72 ng/mlDDU (0-234) H 03/09/20 10:01 ABG pH 7.470 pH Units (7.350-7.450) H 03/06/20 08:42 ABG pCO2 21.5 mm Hg 03/06/20 08:42 ABG pO2 451.0 mm Hg (80.0-90.0) H 03/06/20 08:42 ABG HCO3 15.3 mmol/L (20.0-26.0) L 03/06/20 08:42 ABG O2 Saturation 99.6 % (95.0-99.0) H 03/06/20 08:42 ABG O2 Content 12.0 (0.0-44) 03/06/20 08:42 ABG Base Excess -7.3 mmol/L (-2.0-3.0) L 03/06/20 08:42 ABG Hemoglobin 7.7 gm/dl (12.0-16.0) L 03/06/20 08:42 ABG Carboxyhemoglobin 0.9 % (0.0-5.0) 03/06/20 08:42 ABG Methemoglobin 0.5 % (0.0-1.5) 03/06/20 08:42 Oxyhemoglobin 98.2 % (95.0-99.0) 03/06/20 08:42 FiO2 100 % 03/06/20 08:42 Sodium 133 mmol/L (137-145) L 03/11/20 09:01 Potassium 4.3 mmol/L (3.6-5.0) 03/11/20 09:01 Chloride 103.0 mmol/L (98-107) 03/11/20 09:01 Carbon Dioxide 16 mmol/L (22-30) L 03/11/20 09:01 Anion Gap 18 mmol/L 03/11/20 09:01 BUN 52 mg/dL (7-17) H 03/11/20 09:01 Creatinine 3.1 mg/dL (0.6-1.2) H 03/11/20 09:01 Estimated GFR 16 ml/min 03/11/20 09:01 BUN/Creatinine Ratio 17 % 03/11/20 09:01 Glucose 291 mg/dL (65-100) H 03/11/20 09:01 POC Glucose 255 (70-105) H 03/12/20 05:54 Lactic Acid 4.30 mmol/L (0.7-2.0) H* 03/06/20 14:35 Calcium 7.5 mg/dL (8.4-10.2) L 03/11/20 09:01 Phosphorus 2.20 mg/dL (2.5-4.5) L D 03/11/20 09:01 Magnesium 1.80 mg/dL (1.7-2.3) 03/05/20 11:18 Iron 106 ug/dL (37-170) 03/08/20 12:00 TIBC 101 mcg/dL (250-450) L 03/08/20 12:00 Ferritin 835.3 ng/mL (10.0-200.0) H 03/09/20 10:01 Total Bilirubin 0.20 mg/dL (0.1-1.2) 03/08/20 06:55 AST 27 units/L (5-40) 03/08/20 06:55 ALT 23 units/L (7-56) 03/08/20 06:55 Alkaline Phosphatase 135 units/L (35-129) H 03/08/20 06:55 Lactate Dehydrogenase 460 units/L (91-180) H 03/09/20 10:01 C-Reactive Protein 3.50 mg/dL (0.00-1.30) H 03/09/20 10:01 Total Protein 3.9 g/dL (6.3-8.2) L 03/08/20 06:55 Albumin 1.7 g/dL (3.9-5) L 03/08/20 06:55 Albumin/Globulin Ratio 0.8 % 03/08/20 06:55 Vitamin B12 1453 pg/mL (211-911) H 03/09/20 00:20 Folate 8.06 ng/mL (7.3-26.0) 03/09/20 00:20 Procalcitonin 10.61 ng/mL (<0.15) 03/09/20 Unknown Urine Color Yellow (Yellow) 03/06/20 Unknown Urine Turbidity Cloudy (Clear) 03/06/20 Unknown Urine pH 5.0 (5.0-7.0) 03/06/20 Unknown Ur Specific [place] 1.009 (1.003-1.030) 03/06/20 Unknown Urine Protein <15 mg/dl mg/dL (Negative) 03/06/20 Unknown Urine Glucose (UA) >=500 mg/dL (Negative) 03/06/20 Unknown Urine Ketones 20 mg/dL (Negative) 03/06/20 Unknown Urine Blood Sm (Negative) 03/06/20 Unknown Urine Nitrite Neg (Negative) 03/06/20 Unknown Urine Bilirubin Neg (Negative) 03/06/20 Unknown Urine Urobilinogen < 2.0 mg/dL (<2.0) 03/06/20 Unknown Ur Leukocyte Esterase Neg (Negative) 03/06/20 Unknown Urine WBC (Auto) 2.0 /HPF (0.0-6.0) 03/06/20 Unknown Urine RBC (Auto) > 182.0 /HPF (0.0-6.0) 03/06/20 Unknown Urine Bacteria (Auto) 1+ /HPF (Negative) 03/06/20 Unknown Urine Yeast (Budding) 3+ /HPF 03/06/20 Unknown Urine Creatinine 19.3 mg/dL (0.1-20.0) 03/08/20 11:41 Urine Sodium 71 mmol/L 03/08/20 11:41 Nasal Screen MRSA (PCR) Negative (Negative) 03/06/20 02:50 Coronavirus (PCR) Positive (Negative) A 03/05/20 Unknown Blood Type O POSITIVE 03/09/20 00:20 Antibody Screen Negative 03/09/20 00:20 Crossmatch See Detail 03/09/20 00:20 Verma/IV: Voiding Method Indwelling Catheter IV Catheter Type [Right Triple Lumen Cath Internal Jugular] IV Catheter Type [Right Leg] Intra-osseous IV Catheter Type [Left Leg] Intra-osseous Active Medications - Current Medications Current Medications: Generic Name Dose Route Start Last Admin Trade Name Freq PRN Reason Stop Dose Admin Lipase/Protease/Amylase 1 each 03/08/20 09:00 Pancreazdelfin Card 10,500 Unit FEEDTUBE PRN PRN For Clogged Feeding Tube Apixaban 2.5 mg 03/12/20 10:00 Eliquis PO BID [facility] Protocol Ascorbic Acid 500 mg 03/12/20 10:00 Vitamin C PO DAILY SHAHLA Citalopram Hydrobromide 20 mg 03/12/20 10:00 Celexa PO QDAY SHAHLA Dextrose 0 ml 03/05/20 12:09 03/09/20 06:09 D50w (25gm) Syringe IV 50 ml Q30MIN PRN Administration Hypoglycemia Protocol Sodium Bicarbonate 150 meq/ 1,150 mls @ 75 mls/hr 03/11/20 16:00 03/11/20 22:09 Sterile Water IV 75 mls/hr DIRECT SHAHLA Administration Insulin Glargine 15 units 03/12/20 10:00 Lantus SUB-Q BID SHAHLA Insulin Human Lispro 0 unit 03/07/20 01:00 03/12/20 05:40 Humalog SUB-Q 300 unit Q6HR SHAHLA Administration Protocol Miscellaneous Medication 15 mg 03/12/20 10:00 Multivit-Min/Ferrous Fumarate [Multivitamin With Minerals Tab] PO DAILY [facility] Pravastatin Sodium 40 mg 03/12/20 22:00 Pravachol PO QHS SHAHLA Simple Syrup 15 ml 03/08/20 09:00 Simple Syrup FEEDTUBE PRN PRN Hypoglycemia Simple Syrup 30 ml 03/08/20 09:00 Simple Syrup FEEDTUBE PRN PRN Hypoglycemia Sodium Bicarbonate 325 mg 03/08/20 09:00 Sodium Bicarbonate FEEDTUBE PRN PRN For Clogged Feeding Tube Sodium Chloride 10 ml 03/05/20 22:00 03/11/20 22:10 Sodium Chloride Flush Syringe 10 Ml IV 10 ml BID SHAHLA Administration Sodium Chloride 10 ml 03/05/20 12:13 Sodium Chloride Flush Syringe 10 Ml IV PRN PRN LINE FLUSH Nutrition/Malnutrition Assess - Dietary Evaluation Nutrition/Malnutrition Findings: Nutrition Notes Start: 03/06/20 12: 14 Freq: Status: Active Protocol: Document 03/11/20 11:14 SUSANA (Rec: 03/11/20 11:21 [facility] SRW- [id number]) Nutrition Notes Initial or Follow up Reassessment Current Diagnosis Acute Kidney Injury Other Pertinent Diagnosis COVID-19 (+), pneu, metabolic encephalopathy Current Diet TF - Nepro at 35ml/hr Labs/Tests Na 133 (likely 136-138) BG 291 BUN 52 Cr 3.1 Phos 2.2 Pertinent Medications reviewed Height 5 ft 3 in Weight 73 kg [place] Body Weight (kg) 52.27 BMI 28.5 Subjective/Other Information Spoke with RN via phone at 11: 07. Pt tolerating TF at goal rate. Per [employer] evaluation this am, pt unlikely to consume adequate PO to meet nutrient needs; recommends PEG placement. Burn Absent Trauma Absent #2 Nutrition Diagnosis Increased nutrient needs ( specify in comment below) Diagnosis Progress(for reassessment Continues documentation) #1 Nutrition Diagnosis Inadequate oral intake Diagnosis Progress(for reassessment Continues documentation) Is patient on ventilator? No Is Patient Ambulatory and/or Out of Bed No REE-([place] Jeor-confined to bed) [phone] Calculation Used for Recommendations [place] Jeor Additional Notes Pro needs 0.8-1.5g/k-110g /day Fluid needs 1ml/kcal Nutrition Intervention Nutrition Support: Continue Nepro 1.8 at 35ml/hr Flush 150ml q4h Kcal 1,512 Protein (gm) 68 Fluid (mL) 611 Goal #1 TF tolerance Goal #2 TF to meet at least 75% energy and pro needs Follow-Up By: 03/18/20 Additional Comments F/U: stable TF, PEG placement, wt
[2020-03-12] MEDS: APIXABAN 2.5 MG TAB PO SCH ×2 (09:13→22:07)
[2020-03-12] MEDS: ASCORBIC ACID 500 MG TAB PO SCH (09:13)
[2020-03-12] MEDS: CITALOPRAM 20 MG TAB PO SCH (09:13)
[2020-03-12] MEDS: INSULIN GLARGINE 100 UNITS/ML SUB-Q SCH ×2 (09:15→22:07)
[2020-03-12] MEDS ORDERED: FERROUS FUMARATE PO SCH (10:00)
[2020-03-12] MEDS ORDERED: [UNRECOGNIZED DRUG - OTHER] PO SCH (10:00)
[2020-03-12] MEDS ORDERED: MULTIVIT MIN PO SCH (10:00)
[2020-03-12] MEDS ORDERED: MULTIVITAMINS,THER W-MINERALS TAB PO SCH (10:00)
--- NOTE | 2020-03-12 10:29 | Progress Note ---
Assessment and Plan 1. Acute kidney injury: Vasomotor RACH in the setting of DKA. Renal US ordered. Creatinine level continue to increase. Monitor renal function. Continue IV fluids. Unable to give Heparin / Lovenox due to anemia and thrombocytopenia. Renal prognosis is guarded. Avoid nephrotoxic agents. Meds dosage based on GFR. No labs from today. 2. FEN: Hyperchloremic metabolic acidosis, bicarb drip, monitor. Monitor lytes and volume status. 3. Acute hypoxic respiratory failure: S/p extubated. NC O2. Followed by Pulmonary. 4. COVID-19 infection. Follow cultures. 5. Sepsis with shock, POA: 2/2 COVID-19 infection. BP is better. 6. Anemia: S/p PRBC. 7. DM type 2, uncontrolled: Blood sugar is better. 8. HTN: Monitor BP. 9. Metabolic encephalopathy, POA. - Subjective: Patient was seen and examined at the bedside. - General Appearance General appearance: appears stated age, not in distress, appears chronically ill, on NC O2, NG tube HEENT: ATNC, CAITY Neck: Trachea midline Respiratory: appears ctab Cardiology: regular, S1S2, no murmur Gastrointestinal: normoactive bowel sounds, not tender, not distended Integumentary: no rash, warm and dry Neurologic: alert, not following any command, non-verbal Ext: trace dependent edema : Verma catheter Subjective Date of service: 03/12/20 Principal diagnosis: Septic shock acute respiratory failure Objective - Vital Signs Vital signs: Vital Signs - 12hr 03/12/20 03/12/20 00:07 04:17 Temperature 98.4 F Pulse Rate 83 82 Respiratory 16 Rate Blood Pressure 151/69 O2 Sat by Pulse 97 Oximetry - Lab 03/10/20 Unknown 03/11/20 09:01 Most recent lab results ABG pH 7.470 pH Units (7.350-7.450) H 03/06/20 08:42 ABG pCO2 21.5 mm Hg 03/06/20 08:42 ABG pO2 451.0 mm Hg (80.0-90.0) H 03/06/20 08:42 ABG HCO3 15.3 mmol/L (20.0-26.0) L 03/06/20 08:42 ABG O2 Saturation 99.6 % (95.0-99.0) H 03/06/20 08:42 Calcium 7.5 mg/dL (8.4-10.2) L 03/11/20 09:01 Phosphorus 2.20 mg/dL (2.5-4.5) L D 03/11/20 09:01 Magnesium 1.80 mg/dL (1.7-2.3) 03/05/20 11:18 Urine Creatinine 19.3 mg/dL (0.1-20.0) 03/08/20 11:41 Urine Sodium 71 mmol/L 03/08/20 11:41 Medications & Allergies - Medications Allergies/Adverse Reactions: Allergies No Known Allergies Allergy (Verified 02/26/20 10:24) Home Medications: Home Medications Medication Instructions Recorded Confirmed Last Taken Type Citalopram [Celexa] 20 mg PO QDAY 01/25/20 03/06/20 Unknown History Pravastatin [Pravachol] 40 mg PO QHS 01/25/20 03/06/20 Unknown History Acetaminophen [Mapap] 650 mg PO BID PRN 02/26/20 03/06/20 Unknown History Ascorbic Acid [Vitamin C with Chetna 500 mg PO DAILY 02/26/20 03/06/20 Unknown History Hips] Glimepiride [Amaryl] 4 mg PO QAM 02/26/20 03/06/20 Unknown History Insulin Lispro [Humalog] 5 units SQ AC 02/26/20 03/06/20 Unknown History Multivit-Min/Ferrous Fumarate 15 mg PO DAILY 02/26/20 03/06/20 Unknown History [Multivitamin with Minerals Tab] Apixaban [Eliquis] 2.5 mg PO BID #30 tablet 03/01/20 03/06/20 Unknown Rx Insulin Glargine [Lantus VIAL] 15 units SUB-Q BID #100 units 03/01/20 03/06/20 Unknown Rx levoFLOXacin [Levaquin TAB] 500 mg PO QDAY #3 tablet 03/01/20 03/06/20 Unknown Rx Active Medications: Generic Name Dose Route Start Last Admin Trade Name Freq PRN Reason Stop Dose Admin Lipase/Protease/Amylase 1 each 03/08/20 09:00 Michi Card 10,500 Unit FEEDTUBE PRN PRN For Clogged Feeding Tube Apixaban 2.5 mg 03/12/20 10:00 03/12/20 09:13 Eliquis PO 2.5 mg BID SHAHLA Administration Protocol Ascorbic Acid 500 mg 03/12/20 10:00 03/12/20 09:13 Vitamin C PO 500 mg DAILY SHAHLA Administration Citalopram Hydrobromide 20 mg 03/12/20 10:00 03/12/20 09:13 Celexa PO 20 mg QDAY SHAHLA Administration Dextrose 0 ml 03/05/20 12:09 03/09/20 06:09 D50w (25gm) Syringe IV 50 ml Q30MIN PRN Administration Hypoglycemia Protocol Sodium Bicarbonate 150 meq/ 1,150 mls @ 75 mls/hr 03/11/20 16:00 03/11/20 22:09 Sterile Water IV 75 mls/hr DIRECT SHAHLA Administration Insulin Glargine 15 units 03/12/20 10:00 03/12/20 09:15 Lantus SUB-Q 15 units BID SHAHLA Administration Insulin Human Lispro 0 unit 03/07/20 01:00 03/12/20 05:40 Humalog SUB-Q 300 unit Q6HR SHAHLA Administration Protocol Multivitamins 5 ml 03/12/20 10:00 Centrum Liq PO QDAY SHAHLA Pravastatin Sodium 40 mg 03/12/20 22:00 Pravachol PO QHS SHAHLA Simple Syrup 15 ml 03/08/20 09:00 Simple Syrup FEEDTUBE PRN PRN Hypoglycemia Simple Syrup 30 ml 03/08/20 09:00 Simple Syrup FEEDTUBE PRN PRN Hypoglycemia Sodium Bicarbonate 325 mg 03/08/20 09:00 Sodium Bicarbonate FEEDTUBE PRN PRN For Clogged Feeding Tube Sodium Chloride 10 ml 03/05/20 22:00 03/12/20 09:14 Sodium Chloride Flush Syringe 10 Ml IV 10 ml BID SHAHLA Administration Sodium Chloride 10 ml 03/05/20 12:13 Sodium Chloride Flush Syringe 10 Ml IV PRN PRN LINE FLUSH
[2020-03-12] MEDS: MULTIVITAMINS 5 ML ORAL LIQUID PO SCH (13:03)
--- NOTE | 2020-03-12 18:20 | Gastroenterology Consultation ---
History of Present Illness - Reason for Consult Consult date: 03/12/20 PEG placement Requesting physician: ELEONORA MEADOWS - History of Present Illness This is a 54 yo female from nursing facility with vascular dementia, developmental delay, brittle DM, HLD and recent COVID pneumonia admitted on 03/05/2020 for metabolic acidosis and respiratory failure. Patient was intubated in the ED and since extubated on 03/10/2020. Per speech evaluation noted to have risk for aspiration. Currently has a dobhoff tube for nutrition. GI consulted for PEG tube placement. Patient was admitted earlier this month for DKA, COVID pneumonia, and metabolic encephalopathy. She received dobhoff tube feeding but ultimately passed swallow evaluation and discharged back to [facility]. Spoke with patient's sister on the phone. Patient had developmental delay and has been in the [facility] for the past 3 years or so. She has had no trouble with swallowing or eating prior to admission. Medication list reviewed. Past History Past Medical History: diabetes, hypertension, hyperlipidemia, other (See HPI) Past Surgical History: No surgical history, Other (Reviewed) Social history: single. denies: smoking, alcohol abuse, prescription drug abuse Family history: hypertension Medications and Allergies Allergies Allergy/AdvReac Type Severity Reaction Status Date / Time No Known Allergies Allergy Verified 02/26/20 10:24 Home Medications Medication Instructions Recorded Confirmed Last Taken Type Citalopram [Celexa] 20 mg PO QDAY 01/25/20 03/06/20 Unknown History Pravastatin [Pravachol] 40 mg PO QHS 01/25/20 03/06/20 Unknown History Acetaminophen [Mapap] 650 mg PO BID PRN 02/26/20 03/06/20 Unknown History Ascorbic Acid [Vitamin C with Chetna 500 mg PO DAILY 02/26/20 03/06/20 Unknown History Hips] Glimepiride [Amaryl] 4 mg PO QAM 02/26/20 03/06/20 Unknown History Insulin Lispro [Humalog] 5 units SQ AC 02/26/20 03/06/20 Unknown History Multivit-Min/Ferrous Fumarate 15 mg PO DAILY 02/26/20 03/06/20 Unknown History [Multivitamin with Minerals Tab] Apixaban [Eliquis] 2.5 mg PO BID #30 tablet 03/01/20 03/06/20 Unknown Rx Insulin Glargine [Lantus VIAL] 15 units SUB-Q BID #100 units 03/01/20 03/06/20 Unknown Rx levoFLOXacin [Levaquin TAB] 500 mg PO QDAY #3 tablet 03/01/20 03/06/20 Unknown Rx Active Meds: Active Medications Lipase/Protease/Amylase (Pancreaze Dr 10,500 Unit) 1 each FEEDTUBE PRN PRN PRN Reason: For Clogged Feeding Tube Apixaban (Eliquis) 2.5 mg PO BID [facility]; Protocol Last Admin: 03/12/20 09:13 Dose: 2.5 mg Documented by: Ascorbic Acid (Vitamin C) 500 mg PO DAILY [facility] Last Admin: 03/12/20 09:13 Dose: 500 mg Documented by: Citalopram Hydrobromide (Celexa) 20 mg PO QDAY [facility] Last Admin: 03/12/20 09:13 Dose: 20 mg Documented by: Dextrose (D50w (25gm) Syringe) 0 ml IV Q30MIN PRN; Protocol PRN Reason: Hypoglycemia Last Admin: 03/09/20 06:09 Dose: 50 ml Documented by: Sodium Bicarbonate 150 meq/ (Sterile Water) 1,150 mls @ 75 mls/hr IV DIRECT [facility] Last Admin: 03/11/20 22:09 Dose: 75 mls/hr Documented by: Insulin Glargine (Lantus) 15 units SUB-Q BID [facility] Last Admin: 03/12/20 09:15 Dose: 15 units Documented by: Insulin Human Lispro (Humalog) 0 unit SUB-Q Q6HR [facility]; Protocol Last Admin: 03/12/20 11:42 Dose: Not Given Documented by: Multivitamins (Centrum Liq) 5 ml PO QDAY [facility] Last Admin: 03/12/20 13:03 Dose: 5 ml Documented by: Pravastatin Sodium (Pravachol) 40 mg PO QHS [facility] Simple Syrup (Simple Syrup) 15 ml FEEDTUBE PRN PRN PRN Reason: Hypoglycemia Simple Syrup (Simple Syrup) 30 ml FEEDTUBE PRN PRN PRN Reason: Hypoglycemia Sodium Bicarbonate (Sodium Bicarbonate) 325 mg FEEDTUBE PRN PRN PRN Reason: For Clogged Feeding Tube Sodium Chloride (Sodium Chloride Flush Syringe 10 Ml) 10 ml IV BID [facility] Last Admin: 03/12/20 09:14 Dose: 10 ml Documented by: Sodium Chloride (Sodium Chloride Flush Syringe 10 Ml) 10 ml IV PRN PRN PRN Reason: LINE FLUSH Review of Systems - Review of Systems ROS unobtainable: due to mental status All systems: negative Exam - Exam Narrative Exam: exam deferred due to COVID positive status in attempt to conserve PPE and reduce risk of spread of the virus - Constitutional Vital Signs: Temp Pulse Resp BP Pulse Ox 97.1 F L 74 18 112/71 95 03/12/20 16:34 03/12/20 16:34 03/12/20 16:34 03/12/20 16:34 03/12/20 16:34 - Labs CBC & Chem 7: 03/10/20 Unknown 03/11/20 09:01 Lab Results: Laboratory Results - last 24 hr 03/09/20 03/11/20 03/12/20 00:20 22:28 05:54 POC Glucose 196 H 255 H Crossmatch See Detail 03/12/20 03/12/20 11:46 13:20 POC Glucose 135 H 124 H Crossmatch Assessment and Plan This is a 54 yo female from nursing facility with vascular dementia, developmental delay, brittle DM, HLD and recent COVID pneumonia admitted on 03/05/2020 for metabolic acidosis and respiratory failure. Patient was intubated in the ED and since extubated on 03/10/2020. Per speech evaluation noted to have risk for aspiration. Currently has a dobhoff tube for nutrition. GI consulted for PEG tube placement. # Metabolic encephalopathy # Dysphagia -previously had no issues with swallowing per family and patient passed swallow evaluation from last admission earlier this month. -dysphagia may be due to AMS, which may be due to sepsis and metabolic d erangement. - currently tolerating dobhoff tube feeding. Rec - PEG tube placement was discussed with the patient's family, sister on the phone. discussed the nature of the procedure and the risks of complications. - Given this will be an elective procedure and awaiting improvement of patient's mental status with treatment for sepsis and hyperglycemia as well as COVID-19, would recommend having ID consult on weigh in on the infectious time period for COVID-19. It would be ideal to perform elective high risk procedures once patient is considered to be out of infectious window. - patient would also need to be off anticoagulation. - continue with tube feeds via dobhoff in the meantime.
[2020-03-12] MEDS: DEXTROSE 50% IN WATER (25GM) 50 ML SYRINGE IV PRN ×2 (18:25→22:06)
[2020-03-12] MEDS: PRAVASTATIN 40 MG TAB PO SCH (22:07)
[2020-03-12] MEDS: SODIUM BICARBONATE 150 MEQ in WATER FOR INJECTION (PF) 1,000 ML IV SCH (22:24)
[2020-03-12 23:06] LABS: Calcium 7.7 mg/dL (8.4-10.2)
[2020-03-13] MEDS: INSULIN LISPRO 100 UNIT/ML VIAL 3 mL SUB-Q SCH ×3 (07:02→17:54)
[2020-03-13] MEDS: DEXTROSE 50% IN WATER (25GM) 50 ML SYRINGE IV PRN (07:03)
[2020-03-13] MEDS: CITALOPRAM 20 MG TAB PO SCH (09:14)
[2020-03-13] MEDS: FUROSEMIDE 40 MG/4 ML INJ IV SCH ×2 (09:14→17:54)
[2020-03-13] MEDS: ASCORBIC ACID 500 MG TAB PO SCH (09:15)
[2020-03-13] MEDS: APIXABAN 2.5 MG TAB PO SCH ×2 (09:16→22:58)
--- NOTE | 2020-03-13 13:01 | Progress Note ---
Assessment and Plan 1. Acute kidney injury: Vasomotor RACH in the setting of DKA. Renal US ordered. Creatinine level continue to increase. Monitor renal function. IV fluids stopped due to edema. Unable to give Heparin / Lovenox due to anemia and thrombocytopenia. Renal prognosis is guarded. Avoid nephrotoxic agents. Meds dosage based on GFR. 2. FEN: Hyperchloremic metabolic acidosis, improved. Monitor lytes and volume status. 3. Acute hypoxic respiratory failure: S/p extubated. NC O2. Followed by Pulmonary. 4. COVID-19 infection. Follow cultures. 5. Sepsis with shock, POA: 2/2 COVID-19 infection. BP is better. 6. Anemia: S/p PRBC. 7. DM type 2, uncontrolled: Blood sugar is better. 8. HTN: Monitor BP. 9. Metabolic encephalopathy, POA. - Subjective: Patient was seen and examined at the bedside. - General Appearance General appearance: appears stated age, not in distress, appears chronically ill, on NC O2, NG tube HEENT: ATNC, CAITY Neck: Trachea midline Respiratory: appears ctab Cardiology: regular, S1S2, no murmur Gastrointestinal: normoactive bowel sounds, not tender, not distended Integumentary: no rash, warm and dry Neurologic: alert, not following any command, non-verbal Ext: 1 to 2+ LE edema : Verma catheter Subjective Date of service: 03/13/20 Principal diagnosis: Septic shock acute respiratory failure Objective - Vital Signs Vital signs: Vital Signs - 12hr 03/13/20 03/13/20 03:00 06:39 Temperature 97.4 F L Pulse Rate 86 78 Respiratory 16 Rate Blood Pressure 109/62 O2 Sat by Pulse 95 Oximetry - Lab 03/13/20 13:30 03/13/20 13:30 Most recent lab results ABG pH 7.470 pH Units (7.350-7.450) H 03/06/20 08:42 ABG pCO2 21.5 mm Hg 03/06/20 08:42 ABG pO2 451.0 mm Hg (80.0-90.0) H 03/06/20 08:42 ABG HCO3 15.3 mmol/L (20.0-26.0) L 03/06/20 08:42 ABG O2 Saturation 99.6 % (95.0-99.0) H 03/06/20 08:42 Calcium 7.7 mg/dL (8.4-10.2) L 03/12/20 22:42 Phosphorus 2.10 mg/dL (2.5-4.5) L 03/12/20 22:42 Magnesium 1.80 mg/dL (1.7-2.3) 03/05/20 11:18 Urine Creatinine 19.3 mg/dL (0.1-20.0) 03/08/20 11:41 Urine Sodium 71 mmol/L 03/08/20 11:41 Medications & Allergies - Medications Allergies/Adverse Reactions: Allergies No Known Allergies Allergy (Verified 02/26/20 10:24) Home Medications: Home Medications Medication Instructions Recorded Confirmed Last Taken Type Citalopram [Celexa] 20 mg PO QDAY 01/25/20 03/06/20 Unknown History Pravastatin [Pravachol] 40 mg PO QHS 01/25/20 03/06/20 Unknown History Acetaminophen [Mapap] 650 mg PO BID PRN 02/26/20 03/06/20 Unknown History Ascorbic Acid [Vitamin C with Chetna 500 mg PO DAILY 02/26/20 03/06/20 Unknown History Hips] Glimepiride [Amaryl] 4 mg PO QAM 02/26/20 03/06/20 Unknown History Insulin Lispro [Humalog] 5 units SQ AC 02/26/20 03/06/20 Unknown History Multivit-Min/Ferrous Fumarate 15 mg PO DAILY 02/26/20 03/06/20 Unknown History [Multivitamin with Minerals Tab] Apixaban [Eliquis] 2.5 mg PO BID #30 tablet 03/01/20 03/06/20 Unknown Rx Insulin Glargine [Lantus VIAL] 15 units SUB-Q BID #100 units 03/01/20 03/06/20 Unknown Rx levoFLOXacin [Levaquin TAB] 500 mg PO QDAY #3 tablet 03/01/20 03/06/20 Unknown Rx Active Medications: Generic Name Dose Route Start Last Admin Trade Name Freq PRN Reason Stop Dose Admin Lipase/Protease/Amylase 1 each 03/08/20 09:00 03/13/20 09:32 Pancrejoanna Card 10,500 Unit FEEDTUBE 1 each PRN PRN Administration For Clogged Feeding Tube Apixaban 2.5 mg 03/12/20 10:00 03/13/20 09:16 Eliquis PO Not Given BID [facility] Protocol Ascorbic Acid 500 mg 03/12/20 10:00 03/13/20 09:15 Vitamin C PO 500 mg DAILY [facility] Administration Citalopram Hydrobromide 20 mg 03/12/20 10:00 03/13/20 09:14 Celexa PO 20 mg QDAY [facility] Administration Dextrose 0 ml 03/05/20 12:09 03/13/20 07:03 D50w (25gm) Syringe IV 20 ml Q30MIN PRN Administration Hypoglycemia Protocol Furosemide 40 mg 03/13/20 09:00 03/13/20 09:14 Lasix IV 40 mg 0600,1800 [facility] Administration Insulin Human Lispro 0 unit 03/07/20 01:00 03/13/20 07:02 Humalog SUB-Q Not Given Q6HR [facility] Protocol Multivitamins 5 ml 03/12/20 10:00 03/12/20 13:03 Centrum Liq PO 5 ml QDAY [facility] Administration Pravastatin Sodium 40 mg 03/12/20 22:00 03/12/20 22:07 Pravachol PO 40 mg QHS [facility] Administration Simple Syrup 15 ml 03/08/20 09:00 Simple Syrup FEEDTUBE PRN PRN Hypoglycemia Simple Syrup 30 ml 03/08/20 09:00 Simple Syrup FEEDTUBE PRN PRN Hypoglycemia Sodium Bicarbonate 325 mg 03/08/20 09:00 Sodium Bicarbonate FEEDTUBE PRN PRN For Clogged Feeding Tube Sodium Chloride 10 ml 03/05/20 22:00 03/13/20 09:16 Sodium Chloride Flush Syringe 10 Ml IV 10 ml BID [facility] Administration Sodium Chloride 10 ml 03/05/20 12:13 Sodium Chloride Flush Syringe 10 Ml IV PRN PRN LINE FLUSH
--- NOTE | 2020-03-13 13:46 | Gastroenterology Progress Note ---
Assessment and Plan This is a 54 yo female from nursing facility with vascular dementia, developmental delay, brittle DM, HLD and recent COVID pneumonia admitted on 03/05/2020 for metabolic acidosis and respiratory failure. Patient was intubated in the ED and since extubated on 03/10/2020. Per speech evaluation noted to have risk for aspiration. Currently has a dobhoff tube for nutrition. GI consulted for PEG tube placement. # Metabolic encephalopathy # Dysphagia -previously had no issues with swallowing per family and patient passed swallow evaluation from last admission earlier this month. -dysphagia may be due to AMS, which may be due to sepsis and metabolic derangement. - currently tolerating dobhoff tube feeding. Rec - PEG tube placement was discussed with the patient's family, sister on the phone. discussed the nature of the procedure and the risks of complications. - Given this will be an elective procedure and awaiting improvement of patient's mental status with treatment for sepsis and hyperglycemia as well as COVID-19, would recommend having ID consult on weigh in on the infectious time period for COVID-19. It would be ideal to perform elective high risk procedures once patient is considered to be out of infectious window. - patient would also need to be off anticoagulation. - continue with tube feeds via dobhoff in the meantime. - discussed with IMS. Patient may be going to LTAC facility and may plan for PEG there if still requiring tube feeds. - monitor for mental status improvement with correction of DKA/electrolyte abnormalities and treatment for sepsis. Subjective Date of service: 03/13/20 Principal diagnosis: Septic shock acute respiratory failure Interval history: Per nursing, patient tolerating tube feeds via dobhoff. Able to open eyes with stimuli but nonverbal. Objective - Exam Narrative Exam: Exam deferred due to COVID positive in effort to conserve PPE and limit exposure and spread of virus. - Constitutional Vitals: Temp Pulse Resp BP Pulse Ox 97.4 F L 78 16 109/62 95 03/13/20 06:39 03/13/20 06:39 03/13/20 06:39 03/13/20 06:39 03/13/20 06:39 - Labs CBC & Chem 7: 03/13/20 13:30 03/13/20 13:30 Labs: Laboratory Results - last 24 hr 03/12/20 03/12/20 03/12/20 18:24 19:54 22:09 Sodium Potassium Chloride Carbon Dioxide Anion Gap BUN Creatinine Estimated GFR BUN/Creatinine Ratio Glucose POC Glucose 62 L 98 59 L Calcium Phosphorus 03/12/20 03/13/20 03/13/20 22:42 07:11 09:16 Sodium 134 L Potassium 3.4 L D Chloride 99.3 Carbon Dioxide 23 D Anion Gap 15 BUN 57 H Creatinine 3.5 H Estimated GFR 14 BUN/Creatinine Ratio 16 Glucose 129 H POC Glucose 57 L 142 H Calcium 7.7 L Phosphorus 2.10 L 03/13/20 11:26 Sodium Potassium Chloride Carbon Dioxide Anion Gap BUN Creatinine Estimated GFR BUN/Creatinine Ratio Glucose POC Glucose 196 H Calcium Phosphorus
[2020-03-13 14:10] LABS: Hematocrit 22.5 % (30.3-42.9); Hemoglobin 7.8 gm/dl (10.1-14.3); Mean Corpuscular HGB Conc 35 % (30-34); Mean Corpuscular Volume 89 fl (79-97); Red Blood Count 2.53 M/mm3 (3.65-5.03); Red Cell Distribution Width 15.1 % (13.2-15.2)
[2020-03-13 14:11] LABS: Platelet Count 87 K/mm3 (140-440)
[2020-03-13 14:36] LABS: Alanine Aminotransferase 12 units/L (7-56); Albumin 1.6 g/dL (3.9-5); BUN/Creatinine Ratio 17; Blood Urea Nitrogen 59 mg/dL (7-17); Hemolysis Index 19
[2020-03-13] MEDS: MULTIVITAMINS 5 ML ORAL LIQUID PO SCH (14:46)
[2020-03-13 15:28] LABS: Basophils % (Manual) 0 % (0.0-1.8); Eosinophils % (Manual) 0 % (0.0-4.3); RBC Morphology Normal; Total Cells Counted 100
--- NOTE | 2020-03-13 15:33 | Progress Note ---
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 Pt is nonverbal and unable to provide history. Patient history taken from EMS staff, ED staff, and assisted facility staff. As per staff the patient was found to be ill-appearing this morning, and was breathing fast. EMS was notified and upon arrival the patient was found to be in distress and subsequently transported to [facility] for further care and evaluation of the aforementioned symptoms. Patient seen and evaluated in the emergency d epartment. Lab and imaging studies reviewed. Patient found to have sepsis complicated by septic shock, acute hypoxemic respiratory failure, metabolic acidosis, metabolic encephalopathy, acute kidney injury, and hyponatremia. Patient initiated on sepsis protocol and admitted to ICU due to increased risk for decompensation. Critical care team consult placed in the emergency department. No further history is obtainable. Prior admission on 02/26/2020 reviewed. All medication listed at time of admission has been reconciled. Advanced care planning conducted in the emergency department. Intermittent Hx: 54-year-old with acute metabolic encephalopathy multifactorial DKA and septic shock and acute respiratory failure recently extubated but continues with worsening Renal function. Septic shock Patient with septic shock secondary to UTI and pneumonia. Patient has leukocytosis as well as fever. Currently on pressor support. Patient did improve somewhat was able to extubate today. Patient DKA also improved with treatment of underlying etiology of infection. Responding pressor support and aggressive IV volume replacement. Continue cefepime and vancomycin. Follow any ID recommend further ID recommendations. Acute hypoxemic respiratory failure Patient now extubated most likely was secondary to infection and uremia metabolic acidosis. Acute kidney injury (RACH) with acute tubular necrosis (ATN) Patient with acute kidney injury. Vasomotor RACH in the setting of DKA. DKA (diabetic ketoacidoses) Patient DKA has resolved now most likely underlying sepsis infection. Will place patient on 70/30 insulin 15 units a.m. 10 units p.m. Hyponatremia syndrome Hyponatremia has resolved Toxic Metabolic encephalopathy Metabolic encephalopathy multifactorial underlying dementia exacerbated by sepsis and hypoxemia. Hyperchloremic metabolic acidosis, bicarb drip, monitor. Replete Phos. Monitor lytes and volume status. Anemia: S/p PRBC. COVID 19 Pneumonia Patient is positive for COVID-19 infection. DM type 2, uncontrolled: IV fluids changed to bicarbonate drip in sterile water. DVT prophylaxis 03/08/2020. Patient with hypoglycemia yesterday and insulin schedule discontinued. Dobbhoff tube placement for tube feedings. Speech therapy reports high aspiration risk. Pulmonary had discussion with family to consider AND. Overall prognosis is guarded to poor. Strongly suggest considering palliative care/hospice with this patient while at the halfway. Patient with hemoglobin 6.5. Type and cross and transfuse 1 unit PRBCs. Check iron studies. 03/09/2020. Patient currently satting 98% on room air. Follow-up bilateral renal ultrasound for acute kidney injury. Nephrology following. COVID+ testing from 03/05/2020. However, patient with no hypoxia. Recheck inflammatory markers. Consider ID consultation. Pulmonary following. 03/10/2020. Patient with tube feeding in place and dietitian following with regards to feeding. Patient is s/p PRBCs of 1 unit. Hemoglobin improved to 8.7. Continue to follow CBC. Creatinine continues to worsen. Await renal ultrasound. Continue IV fluid hydration. 03/11/2020. Continue IV fluid hydration per nephrology. Creatinine appears to continue to worsen. Etiology likely secondary to acute kidney injury from vasomotor nephropathy. Still awaiting renal ultrasound. If unable to obtain,will consider CT of the abdomen/pelvis to rule out obstruction. Patient with COVID-19 infection but not hypoxic. Patient satting 98% on room air. Hemoglobin has stabilized at 8.6 s/p PRBCs. 03/12: Awaiting todays labs. [place] [employer]ri[place], Discussed Peg placement with sister, Carlota Asif, @[phone]. Continue wound management. Continue current treatment. Renal function unfortunately now recovering nephrology following. 03/13: GI input noted, will hold anticoagluation while awaiting evaluation for LTAC just incase we may need to place PEG here if patients mental status is not improving. Also discussed with Nephrology, will start on lasix 40mg IV BID. Wound care following for sacral pressure ulcer History Interval history: Patient seen and examined today, still lethargic Hospitalist Physical - Physical exam Narrative exam: VITAL SIGNS: Reviewed. GENERAL: The patient appears normally developed, generalized anasarca, confused vital signs as documented. HEAD: No signs of head trauma. EYES: Pupils are equal. Extraocular motions intact. EARS: Hearing grossly intact. MOUTH: Oropharynx is normal, poor dentition. NECK: No adenopathy, no JVD. CHEST: Chest with diminished breath sounds bilaterally. No wheezes, rales, or rhonchi. CARDIAC: Regular rate and rhythm. S1 and S2, without murmurs, gallops, or rubs. VASCULAR: Positive edema. Peripheral pulses normal and equal in all extremities. ABDOMEN: Soft, non tender and non distended. No rebound or guarding, and no masses palpated. Bowel Sounds normal. MUSCULOSKELETAL: Good range of motion of all major joints. Extremities without clubbing, cyanosis. With bilateral pitting edema +[address] to the thigh. Loose stool NEUROLOGIC EXAM: Lethargic, awake, speech is garbled. PSYCHIATRIC: Mood normal. SKIN: Excoriation in the perianal area secondary to loose stool. Detail exam as documented in skin assessment - Constitutional Vitals: Temp Pulse Resp BP Pulse Ox 97.4 F L 78 16 109/62 95 03/13/20 06:39 03/13/20 06:39 03/13/20 06:39 03/13/20 06:39 03/13/20 06:39 General appearance: Present: mild distress Results - Labs CBC & Chem 7: 03/13/20 13:30 03/13/20 13:30 Labs: Laboratory Last Values WBC 7.0 K/mm3 (4.5-11.0) 03/13/20 13:30 RBC 2.53 M/mm3 (3.65-5.03) L 03/13/20 13:30 Hgb 7.8 gm/dl (10.1-14.3) L 03/13/20 13:30 Hct 22.5 % (30.3-42.9) L 03/13/20 13:30 MCV 89 fl (79-97) 03/13/20 13:30 MCH 31 pg (28-32) 03/13/20 13:30 MCHC 35 % (30-34) H 03/13/20 13:30 RDW 15.1 % (13.2-15.2) 03/13/20 13:30 Plt Count 87 K/mm3 (140-440) L 03/13/20 13:30 Lymph % (Auto) 17.7 % (13.4-35.0) 03/10/20 Unknown [place] % (Auto) Rn Cardiac Cath 03/13/20 13:30 Eos % (Auto) 0.6 % (0.0-4.3) 03/10/20 Unknown Baso % (Auto) 0.8 % (0.0-1.8) 03/10/20 Unknown Lymph # 1.2 K/mm3 (1.2-5.4) 03/10/20 Unknown [place] # 0.7 K/mm3 (0.0-0.8) 03/10/20 Unknown Eos # 0.0 K/mm3 (0.0-0.4) 03/10/20 Unknown Baso # 0.1 K/mm3 (0.0-0.1) 03/10/20 Unknown Add Manual Diff Complete 03/05/20 11:20 Total Counted 100 03/05/20 11:20 Seg Neutrophils % 70.5 % (40.0-70.0) H 03/10/20 Unknown Seg Neuts % (Manual) 95.0 % (40.0-70.0) H 03/05/20 11:20 Band Neutrophils % 0 % 03/05/20 11:20 Lymphocytes % (Manual) 2.0 % (13.4-35.0) L 03/05/20 11:20 Reactive Lymphs % (Man) 0 % 03/05/20 11:20 Monocytes % (Manual) 3.0 % (0.0-7.3) 03/05/20 11:20 Eosinophils % (Manual) 0 % (0.0-4.3) 03/05/20 11:20 Basophils % (Manual) 0 % (0.0-1.8) 03/05/20 11:20 Metamyelocytes % 0 % 03/05/20 11:20 Myelocytes % 0 % 03/05/20 11:20 Promyelocytes % 0 % 03/05/20 11:20 Blast Cells % 0 % 03/05/20 11:20 Nucleated RBC % Not Reportable 03/05/20 11:20 Seg Neutrophils # 4.8 K/mm3 (1.8-7.7) 03/10/20 Unknown Seg Neutrophils # Man 18.4 K/mm3 (1.8-7.7) H 03/05/20 11:20 Band Neutrophils # 0.0 K/mm3 03/05/20 11:20 Lymphocytes # (Manual) 0.4 K/mm3 (1.2-5.4) L 03/05/20 11:20 Abs React Lymphs (Man) 0.0 K/mm3 03/05/20 11:20 Monocytes # (Manual) 0.6 K/mm3 (0.0-0.8) 03/05/20 11:20 Eosinophils # (Manual) 0.0 K/mm3 (0.0-0.4) 03/05/20 11:20 Basophils # (Manual) 0.0 K/mm3 (0.0-0.1) 03/05/20 11:20 Metamyelocytes # 0.0 K/mm3 03/05/20 11:20 Myelocytes # 0.0 K/mm3 03/05/20 11:20 Promyelocytes # 0.0 K/mm3 03/05/20 11:20 Blast Cells # 0.0 K/mm3 03/05/20 11:20 WBC Morphology Not Reportable 03/05/20 11:20 Hypersegmented Neuts Not Reportable 03/05/20 11:20 Hyposegmented Neuts Not Reportable 03/05/20 11:20 Hypogranular Neuts Not Reportable 03/05/20 11:20 Smudge Cells Not Reportable 03/05/20 11:20 Toxic Granulation Not Reportable 03/05/20 11:20 Toxic Vacuolation Not Reportable 03/05/20 11:20 Dohle Bodies Not Reportable 03/05/20 11:20 Pelger-Huet Anomaly Not Reportable 03/05/20 11:20 Jamia Rods Not Reportable 03/05/20 11:20 Platelet Estimate Consistent w auto 03/05/20 11:20 Clumped Platelets Not Reportable 03/05/20 11:20 Plt Clumps, EDTA Not Reportable 03/05/20 11:20 Large Platelets Not Reportable 03/05/20 11:20 Giant Platelets Not Reportable 03/05/20 11:20 Platelet Satelliting Not Reportable 03/05/20 11:20 Plt Morphology Comment Not Reportable 03/05/20 11:20 RBC Morphology Not Reportable 03/05/20 11:20 Dimorphic RBCs Not Reportable 03/05/20 11:20 Polychromasia Not Reportable 03/05/20 11:20 Hypochromasia Not Reportable 03/05/20 11:20 Poikilocytosis Not Reportable 03/05/20 11:20 Anisocytosis 1+ 03/05/20 11:20 Microcytosis Few 03/05/20 11:20 Macrocytosis Few 03/05/20 11:20 Spherocytes Not Reportable 03/05/20 11:20 Pappenheimer Bodies Not Reportable 03/05/20 11:20 Sickle Cells Not Reportable 03/05/20 11:20 Target Cells Not Reportable 03/05/20 11:20 Tear Drop Cells Not Reportable 03/05/20 11:20 Ovalocytes Not Reportable 03/05/20 11:20 Helmet Cells Not Reportable 03/05/20 11:20 Galvan-Gueydan Bodies Not Reportable 03/05/20 11:20 [place] Rings Not Reportable 03/05/20 11:20 Luis Cells Not Reportable 03/05/20 11:20 Bite Cells Not Reportable 03/05/20 11:20 Crenated Cell Not Reportable 03/05/20 11:20 Elliptocytes Not Reportable 03/05/20 11:20 Acanthocytes (Spur) Not Reportable 03/05/20 11:20 Rouleaux Not Reportable 03/05/20 11:20 Hemoglobin C Crystals Not Reportable 03/05/20 11:20 Schistocytes Not Reportable 03/05/20 11:20 Malaria parasites Not Reportable 03/05/20 11:20 Felice Bodies Not Reportable 03/05/20 11:20 Hem Pathologist Commnt No 03/05/20 11:20 D-Dimer 544.72 ng/mlDDU (0-234) H 03/09/20 10:01 ABG pH 7.470 pH Units (7.350-7.450) H 03/06/20 08:42 ABG pCO2 21.5 mm Hg 03/06/20 08:42 ABG pO2 451.0 mm Hg (80.0-90.0) H 03/06/20 08:42 ABG HCO3 15.3 mmol/L (20.0-26.0) L 03/06/20 08:42 ABG O2 Saturation 99.6 % (95.0-99.0) H 03/06/20 08:42 ABG O2 Content 12.0 (0.0-44) 03/06/20 08:42 ABG Base Excess -7.3 mmol/L (-2.0-3.0) L 03/06/20 08:42 ABG Hemoglobin 7.7 gm/dl (12.0-16.0) L 03/06/20 08:42 ABG Carboxyhemoglobin 0.9 % (0.0-5.0) 03/06/20 08:42 ABG Methemoglobin 0.5 % (0.0-1.5) 03/06/20 08:42 Oxyhemoglobin 98.2 % (95.0-99.0) 03/06/20 08:42 FiO2 100 % 03/06/20 08:42 Sodium 134 mmol/L (137-145) L 03/13/20 13:30 Potassium 3.8 mmol/L (3.6-5.0) 03/13/20 13:30 Chloride 97.2 mmol/L (98-107) L 03/13/20 13:30 Carbon Dioxide 22 mmol/L (22-30) 03/13/20 13:30 Anion Gap 19 mmol/L 03/13/20 13:30 BUN 59 mg/dL (7-17) H 03/13/20 13:30 Creatinine 3.5 mg/dL (0.6-1.2) H 03/13/20 13:30 Estimated GFR 14 ml/min 03/13/20 13:30 BUN/Creatinine Ratio 17 % 03/13/20 13:30 Glucose 243 mg/dL (65-100) H 03/13/20 13:30 POC Glucose 196 (70-105) H 03/13/20 11:26 Lactic Acid 4.30 mmol/L (0.7-2.0) H* 03/06/20 14:35 Calcium 8.0 mg/dL (8.4-10.2) L 03/13/20 13:30 Phosphorus 2.70 mg/dL (2.5-4.5) D 03/13/20 13:30 Magnesium 1.80 mg/dL (1.7-2.3) 03/05/20 11:18 Iron 106 ug/dL (37-170) 03/08/20 12:00 TIBC 101 mcg/dL (250-450) L 03/08/20 12:00 Ferritin 835.3 ng/mL (10.0-200.0) H 03/09/20 10:01 Total Bilirubin < 0.20 mg/dL (0.1-1.2) 03/13/20 13:30 AST 22 units/L (5-40) 03/13/20 13:30 ALT 12 units/L (7-56) 03/13/20 13:30 Alkaline Phosphatase 248 units/L (35-129) H 03/13/20 13:30 Lactate Dehydrogenase 460 units/L (91-180) H 03/09/20 10:01 C-Reactive Protein 3.50 mg/dL (0.00-1.30) H 03/09/20 10:01 Total Protein 4.4 g/dL (6.3-8.2) L 03/13/20 13:30 Albumin 1.6 g/dL (3.9-5) L 03/13/20 13:30 Albumin/Globulin Ratio 0.6 % 03/13/20 13:30 Vitamin B12 1453 pg/mL (211-911) H 03/09/20 00:20 Folate 8.06 ng/mL (7.3-26.0) 03/09/20 00:20 Procalcitonin 10.61 ng/mL (<0.15) 03/09/20 Unknown Urine Color Yellow (Yellow) 03/06/20 Unknown Urine Turbidity Cloudy (Clear) 03/06/20 Unknown Urine pH 5.0 (5.0-7.0) 03/06/20 Unknown Ur Specific [place] 1.009 (1.003-1.030) 03/06/20 Unknown Urine Protein <15 mg/dl mg/dL (Negative) 03/06/20 Unknown Urine Glucose (UA) >=500 mg/dL (Negative) 03/06/20 Unknown Urine Ketones 20 mg/dL (Negative) 03/06/20 Unknown Urine Blood Sm (Negative) 03/06/20 Unknown Urine Nitrite Neg (Negative) 03/06/20 Unknown Urine Bilirubin Neg (Negative) 03/06/20 Unknown Urine Urobilinogen < 2.0 mg/dL (<2.0) 03/06/20 Unknown Ur Leukocyte Esterase Neg (Negative) 03/06/20 Unknown Urine WBC (Auto) 2.0 /HPF (0.0-6.0) 03/06/20 Unknown Urine RBC (Auto) > 182.0 /HPF (0.0-6.0) 03/06/20 Unknown Urine Bacteria (Auto) 1+ /HPF (Negative) 03/06/20 Unknown Urine Yeast (Budding) 3+ /HPF 03/06/20 Unknown Urine Creatinine 19.3 mg/dL (0.1-20.0) 03/08/20 11:41 Urine Sodium 71 mmol/L 03/08/20 11:41 Nasal Screen MRSA (PCR) Negative (Negative) 03/06/20 02:50 Coronavirus (PCR) Positive (Negative) A 03/05/20 Unknown Blood Type O POSITIVE 03/09/20 00:20 Antibody Screen Negative 03/09/20 00:20 Crossmatch See Detail 03/09/20 00:20 Verma/IV: Voiding Method Indwelling Catheter IV Catheter Type [Right Triple Lumen Cath Internal Jugular] IV Catheter Type [Right Leg] Intra-osseous IV Catheter Type [Left Leg] Intra-osseous Active Medications - Current Medications Current Medications: Generic Name Dose Route Start Last Admin Trade Name Freq PRN Reason Stop Dose Admin Lipase/Protease/Amylase 1 each 03/08/20 09:00 03/13/20 09:[address] 10,500 Unit FEEDTUBE 1 each PRN PRN Administration For Clogged Feeding Tube Apixaban 2.5 mg 03/12/20 10:00 03/13/20 09:16 Eliquis PO Not Given BID SHAHLA Protocol Ascorbic Acid 500 mg 03/12/20 10:00 03/13/20 09:15 Vitamin C PO 500 mg DAILY SHAHLA Administration Citalopram Hydrobromide 20 mg 03/12/20 10:00 03/13/20 09:14 Celexa PO 20 mg QDAY SHAHLA Administration Dextrose 0 ml 03/05/20 12:09 03/13/20 07:03 D50w (25gm) Syringe IV 20 ml Q30MIN PRN Administration Hypoglycemia Protocol Furosemide 40 mg 03/13/20 09:00 03/13/20 09:14 Lasix IV 40 mg 0600,1800 SHAHLA Administration Insulin Human Lispro 0 unit 03/07/20 01:00 03/13/20 14:46 Humalog SUB-Q 3 unit Q6HR SHAHLA Administration Protocol Multivitamins 5 ml 03/12/20 10:00 03/13/20 14:46 Centrum Liq PO 5 ml QDAY SHAHLA Administration Pravastatin Sodium 40 mg 03/12/20 22:00 03/12/20 22:07 Pravachol PO 40 mg QHS SHAHLA Administration Simple Syrup 15 ml 03/08/20 09:00 Simple Syrup FEEDTUBE PRN PRN Hypoglycemia Simple Syrup 30 ml 03/08/20 09:00 Simple Syrup FEEDTUBE PRN PRN Hypoglycemia Sodium Bicarbonate 325 mg 03/08/20 09:00 Sodium Bicarbonate FEEDTUBE PRN PRN For Clogged Feeding Tube Sodium Chloride 10 ml 03/05/20 22:00 03/13/20 09:16 Sodium Chloride Flush Syringe 10 Ml IV 10 ml BID SHAHLA Administration Sodium Chloride 10 ml 03/05/20 12:13 Sodium Chloride Flush Syringe 10 Ml IV PRN PRN LINE FLUSH Nutrition/Malnutrition Assess - Dietary Evaluation Nutrition/Malnutrition Findings: Nutrition Notes Start: 03/06/20 12:14 Freq: Status: Active Protocol: Document 03/11/20 11:14 [facility] (Rec: 03/11/20 11:21 [facility] SRW- [id number]) Nutrition Notes Initial or Follow up Reassessment Current Diagnosis Acute Kidney Injury Other Pertinent Diagnosis COVID-19 (+), pneu, metabolic encephalopathy Current Diet TF - Nepro at 35ml/hr Labs/Tests Na 133 (likely 136-138) BG 291 BUN 52 Cr 3.1 Phos 2.2 Pertinent Medications reviewed Height 5 ft 3 in Weight 73 kg [place] Body Weight (kg) 52.27 BMI 28.5 Subjective/Other Information Spoke with RN via phone at 11: 07. Pt tolerating TF at goal rate. Per [employer] evaluation this am, pt unlikely to consume adequate PO to meet nutrient needs; recommends PEG placement. Burn Absent Trauma Absent #2 Nutrition Diagnosis Increased nutrient needs ( specify in comment below) Diagnosis Progress(for reassessment Continues documentation) #1 Nutrition Diagnosis Inadequate oral intake Diagnosis Progress(for reassessment Continues documentation) Is patient on ventilator? No Is Patient Ambulatory and/or Out of Bed No REE-(Petros-St. Jeor-confined to bed) [phone] Calculation Used for Recommendations Petros-St Jeor Additional Notes Pro needs 0.8-1.5g/k-110g /day Fluid needs 1ml/kcal Nutrition Intervention Nutrition Support: Continue Nepro 1.8 at 35ml/hr Flush 150ml q4h Kcal 1,512 Protein (gm) 68 Fluid (mL) 611 Goal #1 TF tolerance Goal #2 TF to meet at least 75% energy and pro needs Follow-Up By: 03/18/20 Additional Comments F/U: stable TF, PEG placement, wt
[2020-03-13] MEDS: PRAVASTATIN 40 MG TAB PO SCH (22:58)
[2020-03-14] MEDS: INSULIN LISPRO 100 UNIT/ML VIAL 3 mL SUB-Q SCH ×4 (01:28→17:31)
[2020-03-14] MEDS: FUROSEMIDE 40 MG/4 ML INJ IV SCH ×2 (05:27→17:38)
--- NOTE | 2020-03-14 08:39 | Progress Note ---
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 Pt is nonverbal and unable to provide history. Patient history taken from EMS staff, ED staff, and senior care facility staff. As per staff the patient was found to be ill-appearing this morning, and was breathing fast. EMS was notified and upon arrival the patient was found to be in distress and subsequently transported to [facility] for further care and evaluation of the aforementioned symptoms. Patient seen and evaluated in the emergency d epartment. Lab and imaging studies reviewed. Patient found to have sepsis complicated by septic shock, acute hypoxemic respiratory failure, metabolic acidosis, metabolic encephalopathy, acute kidney injury, and hyponatremia. Patient initiated on sepsis protocol and admitted to ICU due to increased risk for decompensation. Critical care team consult placed in the emergency department. No further history is obtainable. Prior admission on 02/26/2020 reviewed. All medication listed at time of admission has been reconciled. Advanced care planning conducted in the emergency department. Intermittent Hx: 54-year-old with acute metabolic encephalopathy multifactorial DKA and septic shock and acute respiratory failure recently extubated but continues with worsening Renal function. Septic shock Patient with septic shock secondary to UTI and pneumonia. Patient has leukocytosis as well as fever. Currently on pressor support. Patient did improve somewhat was able to extubate today. Patient DKA also improved with treatment of underlying etiology of infection. Responding pressor support and aggressive IV volume replacement. Continue cefepime and vancomycin. Follow any ID recommend further ID recommendations. Acute hypoxemic respiratory failure Patient now extubated most likely was secondary to infection and uremia metabolic acidosis. Acute kidney injury (RACH) with acute tubular necrosis (ATN) Patient with acute kidney injury. Vasomotor RACH in the setting of DKA. DKA (diabetic ketoacidoses) Patient DKA has resolved now most likely underlying sepsis infection. Will place patient on 70/30 insulin 15 units a.m. 10 units p.m. Diabetes Mellitus: continue sliding scale coverage Sacral Pressure Ulcer: Continue wound care Dsyphgia ?secondary to Encephalopathy Hyponatremia syndrome Hyponatremia has resolved Toxic Metabolic encephalopathy Metabolic encephalopathy multifactorial underlying dementia exacerbated by sepsis and hypoxemia. Hyperchloremic metabolic acidosis, bicarb drip, monitor. Replete Phos. Monitor lytes and volume status. Anemia: S/p PRBC. COVID 19 Pneumonia Patient is positive for COVID-19 infection. DM type 2, uncontrolled: IV fluids changed to bicarbonate drip in sterile water. DVT prophylaxis 03/08/2020. Patient with hypoglycemia yesterday and insulin schedule discontinued. Dobbhoff tube placement for tube feedings. Speech therapy reports high aspiration risk. Pulmonary had discussion with family to consider AND. Overall prognosis is guarded to poor. Strongly suggest considering pall iative care/hospice with this patient while at the [facility]. Patient with hemoglobin 6.5. Type and cross and transfuse 1 unit PRBCs. Check iron studies. 03/09/2020. Patient currently satting 98% on room air. Follow-up bilateral renal ultrasound for acute kidney injury. Nephrology following. COVID+ testing from 03/05/2020. However, patient with no hypoxia. Recheck inflammatory markers. Consider ID consultation. Pulmonary following. 03/10/2020. Patient with tube feeding in place and dietitian following with regards to feeding. Patient is s/p PRBCs of 1 unit. Hemoglobin improved to 8.7. Continue to follow CBC. Creatinine continues to worsen. Await renal ultrasound. Continue IV fluid hydration. 03/11/2020. Continue IV fluid hydration per nephrology. Creatinine appears to continue to worsen. Etiology likely secondary to acute kidney injury from vasomotor nephropathy. Still awaiting renal ultrasound. If unable to obtain,will consider CT of the abdomen/pelvis to rule out obstruction. Patient with COVID-19 infection but not hypoxic. Patient satting 98% on room air. Hemoglobin has stabilized at 8.6 s/p PRBCs. 03/12: Awaiting todays labs. IN Restriants, Discussed Peg placement with sister, Carlota Asif, @[phone]. Continue wound management. Continue current treatment. Renal function unfortunately now recovering nephrology following. 03/13: GI input noted, will hold anticoagluation while awaiting evaluation for LTAC just incase we may need to place PEG here if patients mental status is not improving. Also discussed with Nephrology, will start on lasix 40mg IV BID. Wound care following for sacral pressure ulcer 03/14: Revaluate Mental health, awaiting Labs to see impact of lasix on renal function, patient diuresis properly. Will change to Purewick. Discussed with GI, will give a few days as patients has never exhibited any dysphgia when mental status was normal. Hold Eliquis History Interval history: Patient seen and examined today, still lethargic Hospitalist Physical - Physical exam Narrative exam: VITAL SIGNS: Reviewed. GENERAL: The patient appears normally developed, generalized anasarca, confused vital signs as documented. HEAD: No signs of head trauma. EYES: Pupils are equal. Extraocular motions intact. EARS: Hearing grossly intact. MOUTH: Oropharynx is normal, poor dentition. NECK: No adenopathy, no JVD. CHEST: Chest with diminished breath sounds bilaterally. No wheezes, rales, or rhonchi. CARDIAC: Regular rate and rhythm. S1 and S2, without murmurs, gallops, or rubs. VASCULAR: Positive edema. Peripheral pulses normal and equal in all extrem ities. ABDOMEN: Soft, non tender and non distended. No rebound or guarding, and no masses palpated. Bowel Sounds normal. MUSCULOSKELETAL: Good range of motion of all major joints. Extremities without clubbing, cyanosis. With bilateral pitting edema +[address] to the thigh. Loose stool NEUROLOGIC EXAM: Lethargic, awake, speech is garbled. PSYCHIATRIC: Mood normal. SKIN: Excoriation in the perianal area secondary to loose stool. Detail exam as documented in skin assessment - Constitutional Vitals: Temp Pulse Resp BP Pulse Ox 97.3 F L 84 18 120/61 99 03/14/20 04:55 03/14/20 04:00 03/14/20 04:55 03/14/20 04:55 03/14/20 04:00 General appearance: Present: mild distress Results - Labs CBC & Chem 7: 03/13/20 13:30 03/13/20 13:30 Labs: Laboratory Last Values WBC 7.0 K/mm3 (4.5-11.0) 03/13/20 13:30 RBC 2.53 M/mm3 (3.65-5.03) L 03/13/20 13:30 Hgb 7.8 gm/dl (10.1-14.3) L 03/13/20 13:30 Hct 22.5 % (30.3-42.9) L 03/13/20 13:30 MCV 89 fl (79-97) 03/13/20 13:30 MCH 31 pg (28-32) 03/13/20 13:30 MCHC 35 % (30-34) H 03/13/20 13:30 RDW 15.1 % (13.2-15.2) 03/13/20 13:30 Plt Count 87 K/mm3 (140-440) L 03/13/20 13:30 Lymph % (Auto) 17.7 % (13.4-35.0) 03/10/20 Unknown Cataño % (Auto) Lamination Spinner 03/13/20 13:30 Eos % (Auto) 0.6 % (0.0-4.3) 03/10/20 Unknown Baso % (Auto) 0.8 % (0.0-1.8) 03/10/20 Unknown Lymph # 1.2 K/mm3 (1.2-5.4) 03/10/20 Unknown Cataño # 0.7 K/mm3 (0.0-0.8) 03/10/20 Unknown Eos # 0.0 K/mm3 (0.0-0.4) 03/10/20 Unknown Baso # 0.1 K/mm3 (0.0-0.1) 03/10/20 Unknown Add Manual Diff Complete 03/13/20 13:30 Total Counted 100 03/13/20 13:30 Seg Neutrophils % 70.5 % (40.0-70.0) H 03/10/20 Unknown Seg Neuts % (Manual) 84.0 % (40.0-70.0) H 03/13/20 13:30 Band Neutrophils % 0 % 03/13/20 13:30 Lymphocytes % (Manual) 5.0 % (13.4-35.0) L 03/13/20 13:30 Reactive Lymphs % (Man) 0 % 03/13/20 13:30 Monocytes % (Manual) 11.0 % (0.0-7.3) H 03/13/20 13:30 Eosinophils % (Manual) 0 % (0.0-4.3) 03/13/20 13:30 Basophils % (Manual) 0 % (0.0-1.8) 03/13/20 13:30 Metamyelocytes % 0 % 03/13/20 13:30 Myelocytes % 0 % 03/13/20 13:30 Promyelocytes % 0 % 03/13/20 13:30 Blast Cells % 0 % 03/13/20 13:30 Nucleated RBC % Not Reportable 03/13/20 13:30 Seg Neutrophils # 4.8 K/mm3 (1.8-7.7) 03/10/20 Unknown Seg Neutrophils # Man 5.9 K/mm3 (1.8-7.7) 03/13/20 13:30 Band Neutrophils # 0.0 K/mm3 03/13/20 13:30 Lymphocytes # (Manual) 0.4 K/mm3 (1.2-5.4) L 03/13/20 13:30 Abs React Lymphs (Man) 0.0 K/mm3 03/13/20 13:30 Monocytes # (Manual) 0.8 K/mm3 (0.0-0.8) 03/13/20 13:30 Eosinophils # (Manual) 0.0 K/mm3 (0.0-0.4) 03/13/20 13:30 Basophils # (Manual) 0.0 K/mm3 (0.0-0.1) 03/13/20 13:30 Metamyelocytes # 0.0 K/mm3 03/13/20 13:30 Myelocytes # 0.0 K/mm3 03/13/20 13:30 Promyelocytes # 0.0 K/mm3 03/13/20 13:30 Blast Cells # 0.0 K/mm3 03/13/20 13:30 WBC Morphology Not Reportable 03/13/20 13:30 Hypersegmented Neuts Not Reportable 03/13/20 13:30 Hyposegmented Neuts Not Reportable 03/13/20 13:30 Hypogranular Neuts Not Reportable 03/13/20 13:30 Smudge Cells Not Reportable 03/13/20 13:30 Toxic Granulation Not Reportable 03/13/20 13:30 Toxic Vacuolation Not Reportable 03/13/20 13:30 Dohle Bodies Not Reportable 03/13/20 13:30 Pelger-Huet Anomaly Not Reportable 03/13/20 13:30 Jamia Rods Not Reportable 03/13/20 13:30 Platelet Estimate Not Reportable 03/13/20 13:30 Clumped Platelets Not Reportable 03/13/20 13:30 Plt Clumps, EDTA Not Reportable 03/13/20 13:30 Large Platelets Not Reportable 03/13/20 13:30 Giant Platelets Not Reportable 03/13/20 13:30 Platelet Satelliting Not Reportable 03/13/20 13:30 Plt Morphology Comment Not Reportable 03/13/20 13:30 RBC Morphology Normal 03/13/20 13:30 Dimorphic RBCs Not Reportable 03/13/20 13:30 Polychromasia Not Reportable 03/13/20 13:30 Hypochromasia Not Reportable 03/13/20 13:30 Poikilocytosis Not Reportable 03/13/20 13:30 Anisocytosis Not Reportable 03/13/20 13:30 Microcytosis Not Reportable 03/13/20 13:30 Macrocytosis Not Reportable 03/13/20 13:30 Spherocytes Not Reportable 03/13/20 13:30 Pappenheimer Bodies Not Reportable 03/13/20 13:30 Sickle Cells Not Reportable 03/13/20 13:30 Target Cells Not Reportable 03/13/20 13:30 Tear Drop Cells Not Reportable 03/13/20 13:30 Ovalocytes Not Reportable 03/13/20 13:30 Helmet Cells Not Reportable 03/13/20 13:30 Galvan-Tyrone Bodies Not Reportable 03/13/20 13:30 [place] Rings Not Reportable 03/13/20 13:30 Luis Cells Not Reportable 03/13/20 13:30 Bite Cells Not Reportable 03/13/20 13:30 Crenated Cell Not Reportable 03/13/20 13:30 Elliptocytes Not Reportable 03/13/20 13:30 Acanthocytes (Spur) Not Reportable 03/13/20 13:30 Rouleaux Not Reportable 03/13/20 13:30 Hemoglobin C Crystals Not Reportable 03/13/20 13:30 Schistocytes Not Reportable 03/13/20 13:30 Malaria parasites Not Reportable 03/13/20 13:30 Felice Bodies Not Reportable 03/13/20 13:30 Hem Pathologist Commnt No 03/13/20 13:30 D-Dimer 544.72 ng/mlDDU (0-234) H 03/09/20 10:01 ABG pH 7.470 pH Units (7.350-7.450) H 03/06/20 08:42 ABG pCO2 21.5 mm Hg 03/06/20 08:42 ABG pO2 451.0 mm Hg (80.0-90.0) H 03/06/20 08:42 ABG HCO3 15.3 mmol/L (20.0-26.0) L 03/06/20 08:42 ABG O2 Saturation 99.6 % (95.0-99.0) H 03/06/20 08:42 ABG O2 Content 12.0 (0.0-44) 03/06/20 08:42 ABG Base Excess -7.3 mmol/L (-2.0-3.0) L 03/06/20 08:42 ABG Hemoglobin 7.7 gm/dl (12.0-16.0) L 03/06/20 08:42 ABG Carboxyhemoglobin 0.9 % (0.0-5.0) 03/06/20 08:42 ABG Methemoglobin 0.5 % (0.0-1.5) 03/06/20 08:42 Oxyhemoglobin 98.2 % (95.0-99.0) 03/06/20 08:42 FiO2 100 % 03/06/20 08:42 Sodium 134 mmol/L (137-145) L 03/13/20 13:30 Potassium 3.8 mmol/L (3.6-5.0) 03/13/20 13:30 Chloride 97.2 mmol/L (98-107) L 03/13/20 13:30 Carbon Dioxide 22 mmol/L (22-30) 03/13/20 13:30 Anion Gap 19 mmol/L 03/13/20 13:30 BUN 59 mg/dL (7-17) H 03/13/20 13:30 Creatinine 3.5 mg/dL (0.6-1.2) H 03/13/20 13:30 Estimated GFR 14 ml/min 03/13/20 13:30 BUN/Creatinine Ratio 17 % 03/13/20 13:30 Glucose 243 mg/dL (65-100) H 03/13/20 13:30 POC Glucose 268 (70-105) H 03/14/20 05:32 Lactic Acid 4.30 mmol/L (0.7-2.0) H* 03/06/20 14:35 Calcium 8.0 mg/dL (8.4-10.2) L 03/13/20 13:30 Phosphorus 2.70 mg/dL (2.5-4.5) D 03/13/20 13:30 Magnesium 1.80 mg/dL (1.7-2.3) 03/05/20 11:18 Iron 106 ug/dL (37-170) 03/08/20 12:00 TIBC 101 mcg/dL (250-450) L 03/08/20 12:00 Ferritin 835.3 ng/mL (10.0-200.0) H 03/09/20 10:01 Total Bilirubin < 0.20 mg/dL (0.1-1.2) 03/13/20 13:30 AST 22 units/L (5-40) 03/13/20 13:30 ALT 12 units/L (7-56) 03/13/20 13:30 Alkaline Phosphatase 248 units/L (35-129) H 03/13/20 13:30 Lactate Dehydrogenase 460 units/L (91-180) H 03/09/20 10:01 C-Reactive Protein 3.50 mg/dL (0.00-1.30) H 03/09/20 10:01 Total Protein 4.4 g/dL (6.3-8.2) L 03/13/20 13:30 Albumin 1.6 g/dL (3.9-5) L 03/13/20 13:30 Albumin/Globulin Ratio 0.6 % 03/13/20 13:30 Vitamin B12 1453 pg/mL (211-911) H 03/09/20 00:20 Folate 8.06 ng/mL (7.3-26.0) 03/09/20 00:20 Procalcitonin 10.61 ng/mL (<0.15) 03/09/20 Unknown Urine Color Yellow (Yellow) 03/06/20 Unknown Urine Turbidity Cloudy (Clear) 03/06/20 Unknown Urine pH 5.0 (5.0-7.0) 03/06/20 Unknown Ur Specific [place] 1.009 (1.003-1.030) 03/06/20 Unknown Urine Protein <15 mg/dl mg/dL (Negative) 03/06/20 Unknown Urine Glucose (UA) >=500 mg/dL (Negative) 03/06/20 Unknown Urine Ketones 20 mg/dL (Negative) 03/06/20 Unknown Urine Blood Sm (Negative) 03/06/20 Unknown Urine Nitrite Neg (Negative) 03/06/20 Unknown Urine Bilirubin Neg (Negative) 03/06/20 Unknown Urine Urobilinogen < 2.0 mg/dL (<2.0) 03/06/20 Unknown Ur Leukocyte Esterase Neg (Negative) 03/06/20 Unknown Urine WBC (Auto) 2.0 /HPF (0.0-6.0) 03/06/20 Unknown Urine RBC (Auto) > 182.0 /HPF (0.0-6.0) 03/06/20 Unknown Urine Bacteria (Auto) 1+ /HPF (Negative) 03/06/20 Unknown Urine Yeast (Budding) 3+ /HPF 03/06/20 Unknown Urine Creatinine 19.3 mg/dL (0.1-20.0) 03/08/20 11:41 Urine Sodium 71 mmol/L 03/08/20 11:41 Nasal Screen MRSA (PCR) Negative (Negative) 03/06/20 02:50 Coronavirus (PCR) Positive (Negative) A 03/05/20 Unknown Blood Type O POSITIVE 03/09/20 00:20 Antibody Screen Negative 03/09/20 00:20 Crossmatch See Detail 03/09/20 00:20 Verma/IV: Voiding Method Indwelling Catheter IV Catheter Type [Right Triple Lumen Cath Internal Jugular] IV Catheter Type [Right Leg] Intra-osseous IV Catheter Type [Left Leg] Intra-osseous Active Medications - Current Medications Current Medications: Generic Name Dose Route Start Last Admin Trade Name Freq PRN Reason Stop Dose Admin Lipase/Protease/Amylase 1 each 03/08/20 09:00 03/13/20 09:32 Pancrejoanna Card 10,500 Unit FEEDTUBE 1 each PRN PRN Administration For Clogged Feeding Tube Apixaban 2.5 mg 03/12/20 10:00 03/13/20 22:58 Eliquis PO 2.5 mg BID SHAHLA Administration Protocol Ascorbic Acid 500 mg 03/12/20 10:00 03/13/20 09:15 Vitamin C PO 500 mg DAILY SHAHLA Administration Citalopram Hydrobromide 20 mg 03/12/20 10:00 03/13/20 09:14 Celexa PO 20 mg QDAY SHAHLA Administration Dextrose 0 ml 03/05/20 12:09 03/13/20 07:03 D50w (25gm) Syringe IV 20 ml Q30MIN PRN Administration Hypoglycemia Protocol Furosemide 40 mg 03/13/20 09:00 03/14/20 05:27 Lasix IV 40 mg 0600,1800 SHAHLA Administration Insulin Human Lispro 0 unit 03/07/20 01:00 03/14/20 05:28 Humalog SUB-Q 3 unit Q6HR SHAHLA Administration Protocol Multivitamins 5 ml 03/12/20 10:00 03/13/20 14:46 Centrum Liq PO 5 ml QDAY SHAHLA Administration Pravastatin Sodium 40 mg 03/12/20 22:00 03/13/20 22:58 Pravachol PO 40 mg QHS SHAHLA Administration Simple Syrup 15 ml 03/08/20 09:00 Simple Syrup FEEDTUBE PRN PRN Hypoglycemia Simple Syrup 30 ml 03/08/20 09:00 Simple Syrup FEEDTUBE PRN PRN Hypoglycemia Sodium Bicarbonate 325 mg 03/08/20 09:00 Sodium Bicarbonate FEEDTUBE PRN PRN For Clogged Feeding Tube Sodium Chloride 10 ml 03/05/20 22:00 03/13/20 22:59 Sodium Chloride Flush Syringe 10 Ml IV 10 ml BID SHAHLA Administration Sodium Chloride 10 ml 03/05/20 12:13 Sodium Chloride Flush Syringe 10 Ml IV PRN PRN LINE FLUSH Nutrition/Malnutrition Assess - Dietary Evaluation Nutrition/Malnutrition Findings: Nutrition Notes Start: 03/06/20 12:14 Freq: Status: Active Protocol: Document 03/11/20 11:14 [facility] (Rec: 03/11/20 11:21 [facility] [id number]) Nutrition Notes Initial or Follow up Reassessment Current Diagnosis Acute Kidney Injury Other Pertinent Diagnosis COVID-19 (+), pneu, metabolic encephalopathy Current Diet TF - Nepro at 35ml/hr Labs/Tests Na 133 (likely 136-138) BG 291 BUN 52 Cr 3.1 Phos 2.2 Pertinent Medications reviewed Height 5 ft 3 in Weight 73 kg [place] Body Weight (kg) 52.27 BMI 28.5 Subjective/Other Information Spoke with RN via phone at 11: 07. Pt tolerating TF at goal rate. Per [facility] [employer] evaluation this am, pt unlikely to consume adequate PO to meet nutrient needs; recommends PEG placement. Burn Absent Trauma Absent #2 Nutrition Diagnosis Increased nutrient needs ( specify in comment below) Diagnosis Progress(for reassessment Continues documentation) #1 Nutrition Diagnosis Inadequate oral intake Diagnosis Progress(for reassessment Continues documentation) Is patient on ventilator? No Is Patient Ambulatory and/or Out of Bed No REE-([facility]-confined to bed) [phone] Calculation Used for Recommendations [facility] Additional Notes Pro needs 0.8-1.5g/k-110g /day Fluid needs 1ml/kcal Nutrition Intervention Nutrition Support: Continue Nepro 1.8 at 35ml/hr Flush 150ml q4h Kcal 1,512 Protein (gm) 68 Fluid (mL) 611 Goal #1 TF tolerance Goal #2 TF to meet at least 75% energy and pro needs Follow-Up By: 03/18/20 Additional Comments F/U: stable TF, PEG placement, wt
[2020-03-14] MEDS: ASCORBIC ACID 500 MG TAB PO SCH (09:52)
[2020-03-14] MEDS: CITALOPRAM 20 MG TAB PO SCH (09:52)
[2020-03-14] MEDS: MULTIVITAMINS 5 ML ORAL LIQUID PO SCH (09:53)
--- NOTE | 2020-03-14 13:57 | Progress Note ---
Assessment and Plan 1. Acute kidney injury: Vasomotor RACH in the setting of DKA. Renal US ordered. Creatinine leveled off. Monitor renal function. Pt is non-oliguric / good UOP. IV fluids stopped due to edema. Unable to give Heparin / Lovenox due to anemia and thrombocytopenia. Renal prognosis is guarded. Avoid nephrotoxic agents. Meds dosage based on GFR. Labs not done today. 2. FEN: Hyperchloremic metabolic acidosis, improved. Monitor lytes and volume status. 3. Acute hypoxic respiratory failure: S/p extubated. NC O2. Followed by Pulmonary. 4. COVID-19 infection. Follow cultures. 5. Sepsis with shock, POA: 2/2 COVID-19 infection. BP is better. 6. Anemia: S/p PRBC. 7. DM type 2, uncontrolled: Blood sugar is better. 8. HTN: Monitor BP. 9. Metabolic encephalopathy, POA. - Subjective: Patient was seen and examined at the bedside. - General Appearance General appearance: appears stated age, not in distress, appears chronically ill, on NC O2, NG tube HEENT: ATNC, CAITY Neck: Trachea midline Respiratory: appears ctab Cardiology: regular, S1S2, no murmur Gastrointestinal: normoactive bowel sounds, not tender, not distended Integumentary: no rash, warm and dry Neurologic: alert, not following any command, non-verbal Ext: 1 to 2+ LE edema : Verma catheter Subjective Date of service: 03/14/20 Principal diagnosis: Septic shock acute respiratory failure Objective - Vital Signs Vital signs: Vital Signs - 12hr 03/14/20 03/14/20 03/14/20 04:00 04:55 08:57 Temperature 97.3 F L Pulse Rate 84 84 Respiratory 18 Rate Blood Pressure 120/61 105/58 O2 Sat by Pulse 99 98 Oximetry 03/14/20 11:43 Temperature 97.3 F L Pulse Rate 89 Respiratory 18 Rate Blood Pressure 121/62 O2 Sat by Pulse 99 Oximetry - Lab 03/13/20 13:30 03/13/20 13:30 Most recent lab results ABG pH 7.470 pH Units (7.350-7.450) H 03/06/20 08:42 ABG pCO2 21.5 mm Hg 03/06/20 08:42 ABG pO2 451.0 mm Hg (80.0-90.0) H 03/06/20 08:42 ABG HCO3 15.3 mmol/L (20.0-26.0) L 03/06/20 08:42 ABG O2 Saturation 99.6 % (95.0-99.0) H 03/06/20 08:42 Calcium 8.0 mg/dL (8.4-10.2) L 03/13/20 13:30 Phosphorus 2.70 mg/dL (2.5-4.5) D 03/13/20 13:30 Magnesium 1.80 mg/dL (1.7-2.3) 03/05/20 11:18 Urine Creatinine 19.3 mg/dL (0.1-20.0) 03/08/20 11:41 Urine Sodium 71 mmol/L 03/08/20 11:41 Medications & Allergies - Medications Allergies/Adverse Reactions: Allergies No Known Allergies Allergy (Verified 02/26/20 10:24) Home Medications: Home Medications Medication Instructions Recorded Confirmed Last Taken Type Citalopram [Celexa] 20 mg PO QDAY 01/25/20 03/06/20 Unknown History Pravastatin [Pravachol] 40 mg PO QHS 01/25/20 03/06/20 Unknown History Acetaminophen [Mapap] 650 mg PO BID PRN 02/26/20 03/06/20 Unknown History Ascorbic Acid [Vitamin C with Chetna 500 mg PO DAILY 02/26/20 03/06/20 Unknown History Hips] Glimepiride [Amaryl] 4 mg PO QAM 02/26/20 03/06/20 Unknown History Insulin Lispro [Humalog] 5 units SQ AC 02/26/20 03/06/20 Unknown History Multivit-Min/Ferrous Fumarate 15 mg PO DAILY 02/26/20 03/06/20 Unknown History [Multivitamin with Minerals Tab] Apixaban [Eliquis] 2.5 mg PO BID #30 tablet 03/01/20 03/06/20 Unknown Rx Insulin Glargine [Lantus VIAL] 15 units SUB-Q BID #100 units 03/01/20 03/06/20 Unknown Rx levoFLOXacin [Levaquin TAB] 500 mg PO QDAY #3 tablet 03/01/20 03/06/20 Unknown Rx Active Medications: Generic Name Dose Route Start Last Admin Trade Name Freq PRN Reason Stop Dose Admin Lipase/Protease/Amylase 1 each 03/08/20 09:00 03/13/20 09:[address] 10,500 Unit FEEDTUBE 1 each PRN PRN Administration For Clogged Feeding Tube Ascorbic Acid 500 mg 03/12/20 10:00 03/14/20 09:52 Vitamin C PO 500 mg DAILY SHAHLA Administration Citalopram Hydrobromide 20 mg 03/12/20 10:00 03/14/20 09:52 Celexa PO 20 mg QDAY SHAHLA Administration Dextrose 0 ml 03/05/20 12:09 03/13/20 07:03 D50w (25gm) Syringe IV 20 ml Q30MIN PRN Administration Hypoglycemia Protocol Furosemide 40 mg 03/13/20 09:00 03/14/20 05:27 Lasix IV 40 mg 0600,1800 SHAHLA Administration Insulin Human Lispro 0 unit 03/07/20 01:00 03/14/20 13:01 Humalog SUB-Q 4 unit Q6HR SHAHLA Administration Protocol Multivitamins 5 ml 03/12/20 10:00 03/14/20 09:53 Centrum Liq PO 5 ml QDAY SHAHLA Administration Pravastatin Sodium 40 mg 03/12/20 22:00 03/13/20 22:58 Pravachol PO 40 mg QHS SHAHLA Administration Simple Syrup 15 ml 03/08/20 09:00 Simple Syrup FEEDTUBE PRN PRN Hypoglycemia Simple Syrup 30 ml 03/08/20 09:00 Simple Syrup FEEDTUBE PRN PRN Hypoglycemia Sodium Bicarbonate 325 mg 03/08/20 09:00 Sodium Bicarbonate FEEDTUBE PRN PRN For Clogged Feeding Tube Sodium Chloride 10 ml 03/05/20 22:00 03/14/20 09:54 Sodium Chloride Flush Syringe 10 Ml IV 10 ml BID SHAHLA Administration Sodium Chloride 10 ml 03/05/20 12:13 Sodium Chloride Flush Syringe 10 Ml IV PRN PRN LINE FLUSH
--- NOTE | 2020-03-14 16:32 | Gastroenterology Progress Note ---
Assessment and Plan This is a 54 yo female from nursing facility with vascular dementia, developmental delay, brittle DM, HLD and recent COVID pneumonia admitted on 03/05/2020 for metabolic acidosis and respiratory failure. Patient was intubated in the ED and since extubated on 03/10/2020. Per speech evaluation noted to have risk for aspiration. Currently has a dobhoff tube for nutrition. GI consulted for PEG tube placement. # Metabolic encephalopathy # Dysphagia -previously had no issues with swallowing per family and patient passed swallow evaluation from last admission earlier this month. -dysphagia may be due to AMS, which may be due to sepsis and metabolic derangement. - currently tolerating dobhoff tube feeding. - more alert today and evaluation by speech. passed for pureed diet. Able to swallow applesauce. Rec - continue with speech therapy. - hold off PEG tube given improving mental status and able to have pureed diet. - monitor for mental status improvement with correction of DKA/electrolyte abnormalities and treatment for sepsis. - will sign off. please call back as needed. Subjective Date of service: 03/14/20 Principal diagnosis: Septic shock acute respiratory failure Interval history: Per nursing, patient more alert today. Evaluated by speech again today. Objective - Exam Narrative Exam: Exam deferred due to COVID positive status in effort to conserve PPE and limit the exposure and spread of virus. - Constitutional Vitals: Temp Pulse Resp BP Pulse Ox 97.3 F L 89 18 121/62 99 03/14/20 11:43 03/14/20 11:43 03/14/20 11:43 03/14/20 11:43 03/14/20 11:43 - Labs CBC & Chem 7: 03/13/20 13:30 03/13/20 13:30 Labs: Laboratory Results - last 24 hr 03/13/20 03/13/20 03/14/20 17:36 23:05 05:32 POC Glucose 214 H 230 H 268 H 03/14/20 12:43 POC Glucose 324 H
[2020-03-14 22:43] LABS: Hematocrit 20.7 % (30.3-42.9); Mean Corpuscular HGB Conc 34 % (30-34); Mean Corpuscular Volume 92 fl (79-97); Platelet Count 136 K/mm3 (140-440); Red Blood Count 2.24 M/mm3 (3.65-5.03); Red Cell Distribution Width 15.3 % (13.2-15.2)
[2020-03-14 22:56] LABS: Calcium 8.1 mg/dL (8.4-10.2)
[2020-03-15] MEDS: INSULIN LISPRO 100 UNIT/ML VIAL 3 mL SUB-Q SCH ×4 (00:50→17:42)
[2020-03-15] MEDS: PRAVASTATIN 40 MG TAB PO SCH ×2 (00:50→22:07)
[2020-03-15] MEDS: FUROSEMIDE 40 MG/4 ML INJ IV SCH (05:59)
--- NOTE | 2020-03-15 10:26 | Progress Note ---
Assessment and Plan 1. Acute kidney injury: Vasomotor RACH in the setting of DKA and septic shock. Renal US ordered. Also talked to the pathology laboratory technologist. Creatinine level increasing, 4 today. Monitor renal function. Pt is non-oliguric / good UOP. IV fluids stopped due to edema. Unable to give Heparin / Lovenox due to anemia and thrombocytopenia. Renal prognosis is guarded. Avoid nephrotoxic agents. Meds dosage based on GFR. 2. FEN: Hyperchloremic metabolic acidosis, improved. On IV Lasix. Monitor lytes and volume status. 3. Acute hypoxic respiratory failure: S/p extubated. NC O2. Followed by Pulmonary. 4. COVID-19 infection. Follow cultures. 5. Sepsis with shock, POA: 2/2 COVID-19 infection. BP is better. 6. Anemia: S/p PRBC. 7. DM type 2, uncontrolled: Blood sugar is better. 8. HTN: Monitor BP. 9. Metabolic encephalopathy, POA. - Subjective: Patient was seen and examined at the bedside. RN at the bedside. - General Appearance: General appearance: appears stated age, not in distress, appears chronically ill HEENT: CAITY Neck: Trachea midline Respiratory: appears ctab Cardiology: regular, S1S2, no murmur Gastrointestinal: normoactive bowel sounds, not tender, not distended Integumentary: no rash, warm and dry Neurologic: alert, able to move extremities, not conversing Ext: 1+ LE edema : Verma catheter Subjective Date of service: 03/15/20 Principal diagnosis: Septic shock acute respiratory failure Objective - Vital Signs Vital signs: Vital Signs - 12hr 03/15/20 03/15/20 03/15/20 03:00 03:05 08:46 Temperature 97.7 F Pulse Rate 85 79 77 Respiratory 20 Rate Blood Pressure 132/63 128/67 O2 Sat by Pulse 99 99 Oximetry - Lab 03/15/20 10:37 03/15/20 10:37 Most recent lab results ABG pH 7.470 pH Units (7.350-7.450) H 03/06/20 08:42 ABG pCO2 21.5 mm Hg 03/06/20 08:42 ABG pO2 451.0 mm Hg (80.0-90.0) H 03/06/20 08:42 ABG HCO3 15.3 mmol/L (20.0-26.0) L 03/06/20 08:42 ABG O2 Saturation 99.6 % (95.0-99.0) H 03/06/20 08:42 Calcium 8.1 mg/dL (8.4-10.2) L 03/14/20 22:19 Phosphorus 2.70 mg/dL (2.5-4.5) D 03/13/20 13:30 Magnesium 1.80 mg/dL (1.7-2.3) 03/05/20 11:18 Urine Creatinine 19.3 mg/dL (0.1-20.0) 03/08/20 11:41 Urine Sodium 71 mmol/L 03/08/20 11:41 Medications & Allergies - Medications Allergies/Adverse Reactions: Allergies No Known Allergies Allergy (Verified 02/26/20 10:24) Home Medications: Home Medications Medication Instructions Recorded Confirmed Last Taken Type Citalopram [Celexa] 20 mg PO QDAY 01/25/20 03/06/20 Unknown History Pravastatin [Pravachol] 40 mg PO QHS 01/25/20 03/06/20 Unknown History Acetaminophen [Mapap] 650 mg PO BID PRN 02/26/20 03/06/20 Unknown History Ascorbic Acid [Vitamin C with Chetna 500 mg PO DAILY 02/26/20 03/06/20 Unknown History Hips] Glimepiride [Amaryl] 4 mg PO QAM 02/26/20 03/06/20 Unknown History Insulin Lispro [Humalog] 5 units SQ AC 02/26/20 03/06/20 Unknown History Multivit-Min/Ferrous Fumarate 15 mg PO DAILY 02/26/20 03/06/20 Unknown History [Multivitamin with Minerals Tab] Apixaban [Eliquis] 2.5 mg PO BID #30 tablet 03/01/20 03/06/20 Unknown Rx Insulin Glargine [Lantus VIAL] 15 units SUB-Q BID #100 units 03/01/20 03/06/20 Unknown Rx levoFLOXacin [Levaquin TAB] 500 mg PO QDAY #3 tablet 03/01/20 03/06/20 Unknown Rx Active Medications: Generic Name Dose Route Start Last Admin Trade Name Freq PRN Reason Stop Dose Admin Lipase/Protease/Amylase 1 each 03/08/20 09:00 03/13/20 09:[address] 10,500 Unit FEEDTUBE 1 each PRN PRN Administration For Clogged Feeding Tube Ascorbic Acid 500 mg 03/12/20 10:00 03/14/20 09:52 Vitamin C PO 500 mg DAILY SHAHLA Administration Citalopram Hydrobromide 20 mg 03/12/20 10:00 03/14/20 09:52 Celexa PO 20 mg QDAY SHAHLA Administration Dextrose 0 ml 03/05/20 12:09 03/13/20 07:03 D50w (25gm) Syringe IV 20 ml Q30MIN PRN Administration Hypoglycemia Protocol Furosemide 40 mg 03/13/20 09:00 03/15/20 05:59 Lasix IV 40 mg 0600,1800 SHAHLA Administration Insulin Human Lispro 0 unit 03/07/20 01:00 03/15/20 06:06 Humalog SUB-Q 3 unit Q6HR SHAHLA Administration Protocol Multivitamins 5 ml 03/12/20 10:00 03/14/20 09:53 Centrum Liq PO 5 ml QDAY SHAHLA Administration Pravastatin Sodium 40 mg 03/12/20 22:00 03/15/20 00:50 Pravachol PO 40 mg QHS SHAHLA Administration Simple Syrup 15 ml 03/08/20 09:00 Simple Syrup FEEDTUBE PRN PRN Hypoglycemia Simple Syrup 30 ml 03/08/20 09:00 Simple Syrup FEEDTUBE PRN PRN Hypoglycemia Sodium Bicarbonate 325 mg 03/08/20 09:00 Sodium Bicarbonate FEEDTUBE PRN PRN For Clogged Feeding Tube Sodium Chloride 10 ml 03/05/20 22:00 03/15/20 00:51 Sodium Chloride Flush Syringe 10 Ml IV 10 ml BID SHAHLA Administration Sodium Chloride 10 ml 03/05/20 12:13 Sodium Chloride Flush Syringe 10 Ml IV PRN PRN LINE FLUSH
[2020-03-15] MEDS: ASCORBIC ACID 500 MG TAB PO SCH (10:50)
[2020-03-15] MEDS: MULTIVITAMINS 5 ML ORAL LIQUID PO SCH (10:50)
[2020-03-15] MEDS: CITALOPRAM 20 MG TAB PO SCH (10:50)
[2020-03-15 10:57] LABS: Hematocrit 21.2 % (30.3-42.9); Hemoglobin 7.2 gm/dl (10.1-14.3); Mean Corpuscular HGB Conc 34 % (30-34); Mean Corpuscular Volume 91 fl (79-97); Platelet Count 123 K/mm3 (140-440); Red Blood Count 2.32 M/mm3 (3.65-5.03); Red Cell Distribution Width 15.2 % (13.2-15.2)
[2020-03-15 11:14] LABS: Calcium 8.2 mg/dL (8.4-10.2)
--- NOTE | 2020-03-15 16:29 | Ultrasound Report ---
US renal BILAT INDICATION / CLINICAL INFORMATION: Acute renal failure.. COMPARISON: None available. FINDINGS: The right kidney measures 11.4 cm and the left kidney measures 11.5 cm. The kidneys are echogenic in appearance. An 8 mm stone is seen in the lower portion of the right kidney. There is no evidence of h ydronephrosis. A Verma catheter is present in the bladder. A small amount of ascites is present. IMPRESSION: 1. Echogenic appearing kidneys consistent with chronic renal disease 2. 8 mm stone in the lower pole the right kidney 3. Verma catheter in the bladder 4. Small amount of ascites Signer Name: Solis Padilla MD FACR Signed: 03/15/2020 4:25 PM Workstation Name: [id number]
--- NOTE | 2020-03-15 16:39 | Progress Note ---
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 Pt is nonverbal and unable to provide history. Patient history taken from EMS staff, ED staff, and nursing home facility staff. As per staff the patient was found to be ill-appearing this morning, and was breathing fast. EMS was notified and upon arrival the patient was found to be in distress and subsequently transported to [facility] for further care and evaluation of the aforementioned symptoms. Patient seen and evaluated in the emergency d epartment. Lab and imaging studies reviewed. Patient found to have sepsis complicated by septic shock, acute hypoxemic respiratory failure, metabolic acidosis, metabolic encephalopathy, acute kidney injury, and hyponatremia. Patient initiated on sepsis protocol and admitted to ICU due to increased risk for decompensation. Critical care team consult placed in the emergency department. No further history is obtainable. Prior admission on 02/26/2020 reviewed. All medication listed at time of admission has been reconciled. Advanced care planning conducted in the emergency department. Intermittent Hx: 54-year-old with acute metabolic encephalopathy multifactorial DKA and septic shock and acute respiratory failure recently extubated but continues with worsening Renal function. Septic shock Patient with septic shock secondary to UTI and pneumonia. Patient has leukocytosis as well as fever. Currently on pressor support. Patient did improve somewhat was able to extubate today. Patient DKA also improved with treatment of underlying etiology of infection. Responding pressor support and aggressive IV volume replacement. Continue cefepime and vancomycin. Follow any ID recommend further ID recommendations. Acute hypoxemic respiratory failure Patient now extubated most likely was secondary to infection and uremia metabolic acidosis. Acute kidney injury (RACH) with acute tubular necrosis (ATN) Patient with acute kidney injury. Vasomotor RACH in the setting of DKA. DKA (diabetic ketoacidoses) Patient DKA has resolved now most likely underlying sepsis infection. Will place patient on 70/30 insulin 15 units a.m. 10 units p.m. Diabetes Mellitus: continue sliding scale coverage Sacral Pressure Ulcer: Continue wound care Dsyphgia ?secondary to Encephalopathy Hyponatremia syndrome Hyponatremia has resolved Toxic Metabolic encephalopathy Metabolic encephalopathy multifactorial underlying dementia exacerbated by sepsis and hypoxemia. Hyperchloremic metabolic acidosis, bicarb drip, monitor. Replete Phos. Monitor lytes and volume status. Anemia: S/p PRBC. COVID 19 Pneumonia Patient is positive for COVID-19 infection. DM type 2, uncontrolled: IV fluids changed to bicarbonate drip in sterile water. DVT prophylaxis 03/08/2020. Patient with hypoglycemia yesterday and insulin schedule discontinued. Dobbhoff tube placement for tube feedings. Speech therapy reports high aspiration risk. Pulmonary had discussion with family to consider AND. Overall prognosis is guarded to poor. Strongly suggest considering pall iative care/hospice with this patient while at the [facility]. Patient with hemoglobin 6.5. Type and cross and transfuse 1 unit PRBCs. Check iron studies. 03/09/2020. Patient currently satting 98% on room air. Follow-up bilateral renal ultrasound for acute kidney injury. Nephrology following. COVID+ testing from 03/05/2020. However, patient with no hypoxia. Recheck inflammatory markers. Consider ID consultation. Pulmonary following. 03/10/2020. Patient with tube feeding in place and dietitian following with regards to feeding. Patient is s/p PRBCs of 1 unit. Hemoglobin improved to 8.7. Continue to follow CBC. Creatinine continues to worsen. Await renal ultrasound. Continue IV fluid hydration. 03/11/2020. Continue IV fluid hydration per nephrology. Creatinine appears to continue to worsen. Etiology likely secondary to acute kidney injury from vasomotor nephropathy. Still awaiting renal ultrasound. If unable to obtain,will consider CT of the abdomen/pelvis to rule out obstruction. Patient with COVID-19 infection but not hypoxic. Patient satting 98% on room air. Hemoglobin has stabilized at 8.6 s/p PRBCs. 03/12: Awaiting todays labs. IN Restriants, Discussed Peg placement with sister, Carlota Asif, @[phone]. Continue wound management. Continue current treatment. Renal function unfortunately now recovering nephrology following. 03/13: GI input noted, will hold anticoagluation while awaiting evaluation for LTAC just incase we may need to place PEG here if patients mental status is not improving. Also discussed with Nephrology, will start on lasix 40mg IV BID. Wound care following for sacral pressure ulcer 03/14: Revaluate Mental health, awaiting Labs to see impact of lasix on renal function, patient diuresis properly. Will change to Purewick. Discussed with GI, will give a few days as patients has never exhibited any dysphgia when mental status was normal. Hold Eliquis 03/15: Clinically improving now tolerating p.o. diet History Interval history: Patient seen and examined today, improving today tolerating pured diet today. Hospitalist Physical - Physical exam Narrative exam: VITAL SIGNS: Reviewed. GENERAL: The patient appears normally developed, generalized anasarca, confused vital signs as documented. HEAD: No signs of head trauma. EYES: Pupils are equal. Extraocular motions intact. EARS: Hearing grossly intact. MOUTH: Oropharynx is normal, poor dentition. NECK: No adenopathy, no JVD. CHEST: Chest with diminished breath sounds bilaterally. No wheezes, rales, or rhonchi. CARDIAC: Regular rate and rhythm. S1 and S2, without murmurs, gallops, or rubs. VASCULAR: Positive edema. Peripheral pulses normal and equal in all extremities. ABDOMEN: Soft, non tender and non distended. No rebound or guarding, and no masses palpated. Bowel Sounds normal. MUSCULOSKELETAL: Good range of motion of all major joints. Extremities without clubbing, cyanosis. With bilateral pitting edema +[address] to the thigh. NEUROLOGIC EXAM: Lethargic, awake, speech is garbled. PSYCHIATRIC: Mood normal. SKIN: Excoriation in the perianal area secondary to loose stool. Detail exam as documented in skin assessment - Constitutional Vitals: Temp Pulse Resp BP Pulse Ox 97.7 F 77 20 128/67 99 03/15/20 03:05 03/15/20 08:46 03/15/20 03:05 03/15/20 08:46 03/15/20 08:46 General appearance: Present: mild distress Results - Labs CBC & Chem 7: 03/15/20 10:37 03/15/20 10:37 Labs: Laboratory Last Values WBC 5.4 K/mm3 (4.5-11.0) 03/15/20 10:37 RBC 2.32 M/mm3 (3.65-5.03) L 03/15/20 10:37 Hgb 7.2 gm/dl (10.1-14.3) L 03/15/20 10:37 Hct 21.2 % (30.3-42.9) L 03/15/20 10:37 MCV 91 fl (79-97) 03/15/20 10:37 MCH 31 pg (28-32) 03/15/20 10:37 MCHC 34 % (30-34) 03/15/20 10:37 RDW 15.2 % (13.2-15.2) 03/15/20 10:37 Plt Count 123 K/mm3 (140-440) L 03/15/20 10:37 Lymph % (Auto) 17.7 % (13.4-35.0) 03/10/20 Unknown [place] % (Auto) [place] 03/13/20 13:30 Eos % (Auto) 0.6 % (0.0-4.3) 03/10/20 Unknown Baso % (Auto) 0.8 % (0.0-1.8) 03/10/20 Unknown Lymph # 1.2 K/mm3 (1.2-5.4) 03/10/20 Unknown [place] # 0.7 K/mm3 (0.0-0.8) 03/10/20 Unknown Eos # 0.0 K/mm3 (0.0-0.4) 03/10/20 Unknown Baso # 0.1 K/mm3 (0.0-0.1) 03/10/20 Unknown Add Manual Diff Complete 03/13/20 13:30 Total Counted 100 03/13/20 13:30 Seg Neutrophils % 70.5 % (40.0-70.0) H 03/10/20 Unknown Seg Neuts % (Manual) 84.0 % (40.0-70.0) H 03/13/20 13:30 Band Neutrophils % 0 % 03/13/20 13:30 Lymphocytes % (Manual) 5.0 % (13.4-35.0) L 03/13/20 13:30 Reactive Lymphs % (Man) 0 % 03/13/20 13:30 Monocytes % (Manual) 11.0 % (0.0-7.3) H 03/13/20 13:30 Eosinophils % (Manual) 0 % (0.0-4.3) 03/13/20 13:30 Basophils % (Manual) 0 % (0.0-1.8) 03/13/20 13:30 Metamyelocytes % 0 % 03/13/20 13:30 Myelocytes % 0 % 03/13/20 13:30 Promyelocytes % 0 % 03/13/20 13:30 Blast Cells % 0 % 03/13/20 13:30 Nucleated RBC % Not Reportable 03/13/20 13:30 Seg Neutrophils # 4.8 K/mm3 (1.8-7.7) 03/10/20 Unknown Seg Neutrophils # Man 5.9 K/mm3 (1.8-7.7) 03/13/20 13:30 Band Neutrophils # 0.0 K/mm3 03/13/20 13:30 Lymphocytes # (Manual) 0.4 K/mm3 (1.2-5.4) L 03/13/20 13:30 Abs React Lymphs (Man) 0.0 K/mm3 03/13/20 13:30 Monocytes # (Manual) 0.8 K/mm3 (0.0-0.8) 03/13/20 13:30 Eosinophils # (Manual) 0.0 K/mm3 (0.0-0.4) 03/13/20 13:30 Basophils # (Manual) 0.0 K/mm3 (0.0-0.1) 03/13/20 13:30 Metamyelocytes # 0.0 K/mm3 03/13/20 13:30 Myelocytes # 0.0 K/mm3 03/13/20 13:30 Promyelocytes # 0.0 K/mm3 03/13/20 13:30 Blast Cells # 0.0 K/mm3 03/13/20 13:30 WBC Morphology Not Reportable 03/13/20 13:30 Hypersegmented Neuts Not Reportable 03/13/20 13:30 Hyposegmented Neuts Not Reportable 03/13/20 13:30 Hypogranular Neuts Not Reportable 03/13/20 13:30 Smudge Cells Not Reportable 03/13/20 13:30 Toxic Granulation Not Reportable 03/13/20 13:30 Toxic Vacuolation Not Reportable 03/13/20 13:30 Dohle Bodies Not Reportable 03/13/20 13:30 Pelger-Huet Anomaly Not Reportable 03/13/20 13:30 Jamia Rods Not Reportable 03/13/20 13:30 Platelet Estimate Not Reportable 03/13/20 13:30 Clumped Platelets Not Reportable 03/13/20 13:30 Plt Clumps, EDTA Not Reportable 03/13/20 13:30 Large Platelets Not Reportable 03/13/20 13:30 Giant Platelets Not Reportable 03/13/20 13:30 Platelet Satelliting Not Reportable 03/13/20 13:30 Plt Morphology Comment Not Reportable 03/13/20 13:30 RBC Morphology Normal 03/13/20 13:30 Dimorphic RBCs Not Reportable 03/13/20 13:30 Polychromasia Not Reportable 03/13/20 13:30 Hypochromasia Not Reportable 03/13/20 13:30 Poikilocytosis Not Reportable 03/13/20 13:30 Anisocytosis Not Reportable 03/13/20 13:30 Microcytosis Not Reportable 03/13/20 13:30 Macrocytosis Not Reportable 03/13/20 13:30 Spherocytes Not Reportable 03/13/20 13:30 Pappenheimer Bodies Not Reportable 03/13/20 13:30 Sickle Cells Not Reportable 03/13/20 13:30 Target Cells Not Reportable 03/13/20 13:30 Tear Drop Cells Not Reportable 03/13/20 13:30 Ovalocytes Not Reportable 03/13/20 13:30 Helmet Cells Not Reportable 03/13/20 13:30 [place] Bodies Not Reportable 03/13/20 13:30 [place] Rings Not Reportable 03/13/20 13:30 Luis Cells Not Reportable 03/13/20 13:30 Bite Cells Not Reportable 03/13/20 13:30 Crenated Cell Not Reportable 03/13/20 13:30 Elliptocytes Not Reportable 03/13/20 13:30 Acanthocytes (Spur) Not Reportable 03/13/20 13:30 Rouleaux Not Reportable 03/13/20 13:30 Hemoglobin C Crystals Not Reportable 03/13/20 13:30 Schistocytes Not Reportable 03/13/20 13:30 Malaria parasites Not Reportable 03/13/20 13:30 Felice Bodies Not Reportable 03/13/20 13:30 Hem Pathologist Commnt No 03/13/20 13:30 D-Dimer 544.72 ng/mlDDU (0-234) H 03/09/20 10:01 ABG pH 7.470 pH Units (7.350-7.450) H 03/06/20 08:42 ABG pCO2 21.5 mm Hg 03/06/20 08:42 ABG pO2 451.0 mm Hg (80.0-90.0) H 03/06/20 08:42 ABG HCO3 15.3 mmol/L (20.0-26.0) L 03/06/20 08:42 ABG O2 Saturation 99.6 % (95.0-99.0) H 03/06/20 08:42 ABG O2 Content 12.0 (0.0-44) 03/06/20 08:42 ABG Base Excess -7.3 mmol/L (-2.0-3.0) L 03/06/20 08:42 ABG Hemoglobin 7.7 gm/dl (12.0-16.0) L 03/06/20 08:42 ABG Carboxyhemoglobin 0.9 % (0.0-5.0) 03/06/20 08:42 ABG Methemoglobin 0.5 % (0.0-1.5) 03/06/20 08:42 Oxyhemoglobin 98.2 % (95.0-99.0) 03/06/20 08:42 FiO2 100 % 03/06/20 08:42 Sodium 133 mmol/L (137-145) L 03/15/20 10:37 Potassium 4.1 mmol/L (3.6-5.0) 03/15/20 10:37 Chloride 97.1 mmol/L (98-107) L 03/15/20 10:37 Carbon Dioxide 24 mmol/L (22-30) 03/15/20 10:37 Anion Gap 16 mmol/L 03/15/20 10:37 BUN 69 mg/dL (7-17) H 03/15/20 10:37 Creatinine 4.0 mg/dL (0.6-1.2) H 03/15/20 10:37 Estimated GFR 12 ml/min 03/15/20 10:37 BUN/Creatinine Ratio 17 % 03/15/20 10:37 Glucose 194 mg/dL (65-100) H 03/15/20 10:37 POC Glucose 210 (70-105) H 03/15/20 12:14 Lactic Acid 4.30 mmol/L (0.7-2.0) H* 03/06/20 14:35 Calcium 8.2 mg/dL (8.4-10.2) L 03/15/20 10:37 Phosphorus 2.70 mg/dL (2.5-4.5) D 03/13/20 13:30 Magnesium 1.80 mg/dL (1.7-2.3) 03/05/20 11:18 Iron 106 ug/dL (37-170) 03/08/20 12:00 TIBC 101 mcg/dL (250-450) L 03/08/20 12:00 Ferritin 835.3 ng/mL (10.0-200.0) H 03/09/20 10:01 Total Bilirubin < 0.20 mg/dL (0.1-1.2) 03/13/20 13:30 AST 22 units/L (5-40) 03/13/20 13:30 ALT 12 units/L (7-56) 03/13/20 13:30 Alkaline Phosphatase 248 units/L (35-129) H 03/13/20 13:30 Lactate Dehydrogenase 460 units/L (91-180) H 03/09/20 10:01 C-Reactive Protein 3.50 mg/dL (0.00-1.30) H 03/09/20 10:01 Total Protein 4.4 g/dL (6.3-8.2) L 03/13/20 13:30 Albumin 1.6 g/dL (3.9-5) L 03/13/20 13:30 Albumin/Globulin Ratio 0.6 % 03/13/20 13:30 Vitamin B12 1453 pg/mL (211-911) H 03/09/20 00:20 Folate 8.06 ng/mL (7.3-26.0) 03/09/20 00:20 Procalcitonin 10.61 ng/mL (<0.15) 03/09/20 Unknown Urine Color Yellow (Yellow) 03/06/20 Unknown Urine Turbidity Cloudy (Clear) 03/06/20 Unknown Urine pH 5.0 (5.0-7.0) 03/06/20 Unknown Ur Specific [place] 1.009 (1.003-1.030) 03/06/20 Unknown Urine Protein <15 mg/dl mg/dL (Negative) 03/06/20 Unknown Urine Glucose (UA) >=500 mg/dL (Negative) 03/06/20 Unknown Urine Ketones 20 mg/dL (Negative) 03/06/20 Unknown Urine Blood Sm (Negative) 03/06/20 Unknown Urine Nitrite Neg (Negative) 03/06/20 Unknown Urine Bilirubin Neg (Negative) 03/06/20 Unknown Urine Urobilinogen < 2.0 mg/dL (<2.0) 03/06/20 Unknown Ur Leukocyte Esterase Neg (Negative) 03/06/20 Unknown Urine WBC (Auto) 2.0 /HPF (0.0-6.0) 03/06/20 Unknown Urine RBC (Auto) > 182.0 /HPF (0.0-6.0) 03/06/20 Unknown Urine Bacteria (Auto) 1+ /HPF (Negative) 03/06/20 Unknown Urine Yeast (Budding) 3+ /HPF 03/06/20 Unknown Urine Creatinine 19.3 mg/dL (0.1-20.0) 03/08/20 11:41 Urine Sodium 71 mmol/L 03/08/20 11:41 Nasal Screen MRSA (PCR) Negative (Negative) 03/06/20 02:50 Coronavirus (PCR) Positive (Negative) A 03/05/20 Unknown Blood Type O POSITIVE 03/09/20 00:20 Antibody Screen Negative 03/09/20 00:20 Crossmatch See Detail 03/09/20 00:20 - Diagnostic Impressions Diagnostic Impressions: Echocardiogram 03/13/20 08:11 Transthoracic Echocardiogram Indication: SOB BP: 109/62 HR: 97 Conclusions *The study quality is technically difficult. Altered metal status. *Global left ventricular systolic function is normal. *The estimated ejection fraction is 60-65%. *The right ventricular chamber size and systolic function are within normal limits. *The aortic valve is not well visualized. *There is no evidence of aortic regurgitation. *There is no evidence of aortic stenosis. *There is no evidence of mitral regurgitation. *There is no evidence of tricuspid valve regurgitation. *The pulmonic valve is not well visualized. Findings Procedure Info: The study quality is technically difficult. Altered metal status. The study is technically limited due to patient body habitus. The study was technically limited due to the patient's inability to lay in the left lateral decubitus position. Left Ventricle: The left ventricular chamber size is normal. Global left ventricular systolic function is normal. The estimated ejection fraction is 60-65%. Left Atrium: The left atrial chamber size is normal. Right Ventricle: The right ventricular chamber size and systolic function are within normal limits. Right Atrium: The right atrium appears normal. Aortic Valve: The aortic valve is not well visualized. There is no evidence of aortic regurgitation. There is no evidence of aortic stenosis. Mitral Valve: The mitral valve leaflets appear normal. There is no evidence of mitral regurgitation. Tricuspid Valve: The tricuspid valve appears normal in structure and function. There is no evidence of tricuspid valve regurgitation. Pulmonic Valve: The pulmonic valve is not well visualized. Pericardium: There is no pericardial effusion. Aorta: The aorta appears normal. Measurements Chambers 2D Name Value Normal Range IVSd (2D) 0.75 cm (0.6 - 1.1) LVPWd (2D) 0.83 cm (0.6 - 1.1) LVIDd (2D) 3.68 cm (3.7 - 5.6) LVIDs (2D) 2.16 cm (2 - 3.8) LV FS (2D) 41.17 % - EF Teichholz (2D) 72.89 % - Ao root diameter (2D) 2.67 cm (2 - 3.7) Volumes/Mass Name Value Normal Range LV EDV SP 4CH (MOD) 77.78 ml - LV ESV SP 4CH (MOD) 22.18 ml - EF SP 4CH (MOD) 71.49 % - LV EDV SP 2CH (MOD) 80.81 ml - LV ESV SP 2CH (MOD) 24.58 ml - EF SP 2CH (MOD) 69.58 % - LV EDV BP 81.61 ml - LV ESV BP 25.39 ml - BP EF (MOD) 68.89 % - Aortic Valve Name Value Normal Range LVOT diameter 1.92 cm - Tricuspid Valve Name Value Normal Range IVC diameter 1.1 cm (1.2 - 2.3) Verma/IV: Voiding Method Indwelling Catheter IV Catheter Type [Right Triple Lumen Cath Internal Jugular] IV Catheter Type [Right Leg] Intra-osseous IV Catheter Type [Left Leg] Intra-osseous Active Medications - Current Medications Current Medications: Generic Name Dose Route Start Last Admin Trade Name Freq PRN Reason Stop Dose Admin Lipase/Protease/Amylase 1 each 03/08/20 09:00 03/13/20 09:32 Pancreaze 10,500 Unit FEEDTUBE 1 each PRN PRN Administration For Clogged Feeding Tube Ascorbic Acid 500 mg 03/12/20 10:00 03/15/20 10:50 Vitamin C PO 500 mg DAILY SHAHLA Administration Citalopram Hydrobromide 20 mg 03/12/20 10:00 03/15/20 10:50 Celexa PO 20 mg QDAY SHAHLA Administration Dextrose 0 ml 03/05/20 12:09 03/13/20 07:03 D50w (25gm) Syringe IV 20 ml Q30MIN PRN Administration Hypoglycemia Protocol Furosemide 40 mg 03/16/20 10:00 Lasix IV DAILY SHAHLA Insulin Human Lispro 0 unit 03/07/20 01:00 03/15/20 14:10 Humalog SUB-Q 4 unit Q6HR SHAHLA Administration Protocol Multivitamins 5 ml 03/12/20 10:00 03/15/20 10:50 Centrum Liq PO 5 ml QDAY SHAHLA Administration Pravastatin Sodium 40 mg 03/12/20 22:00 03/15/20 00:50 Pravachol PO 40 mg QHS SHAHLA Administration Simple Syrup 15 ml 03/08/20 09:00 Simple Syrup FEEDTUBE PRN PRN Hypoglycemia Simple Syrup 30 ml 03/08/20 09:00 Simple Syrup FEEDTUBE PRN PRN Hypoglycemia Sodium Bicarbonate 325 mg 03/08/20 09:00 Sodium Bicarbonate FEEDTUBE PRN PRN For Clogged Feeding Tube Sodium Chloride 10 ml 03/05/20 22:00 03/15/20 10:51 Sodium Chloride Flush Syringe 10 Ml IV 10 ml BID SHAHLA Administration Sodium Chloride 10 ml 03/05/20 12:13 Sodium Chloride Flush Syringe 10 Ml IV PRN PRN LINE FLUSH Nutrition/Malnutrition Assess - Dietary Evaluation Nutrition/Malnutrition Findings: Nutrition Notes Start: 03/06/20 12:14 Freq: Status: Active Protocol: Document 03/11/20 11:14 SUSANA (Rec: 03/11/20 11:21 SUSANA [email or web address] [email or web address]) Nutrition Notes Initial or Follow up Reassessment Current Diagnosis Acute Kidney Injury Other Pertinent Diagnosis COVID-19 (+), pneu, metabolic encephalopathy Current Diet TF - Nepro at 35ml/hr Labs/Tests Na 133 (likely 136-138) BG 291 BUN 52 Cr 3.1 Phos 2.2 Pertinent Medications reviewed Height 5 ft 3 in Weight 73 kg [place] Body Weight (kg) 52.27 BMI 28.5 Subjective/Other Information Spoke with RN via phone at 11: 07. Pt tolerating TF at goal rate. Per ACTIVE DIRECTORY SPECIALIST evaluation this am, pt unlikely to consume adequate PO to meet nutrient needs; recommends PEG placement. Burn Absent Trauma Absent #2 Nutrition Diagnosis Increased nutrient needs ( specify in comment below) Diagnosis Progress(for reassessment Continues documentation) #1 Nutrition Diagnosis Inadequate oral intake Diagnosis Progress(for reassessment Continues documentation) Is patient on ventilator? No Is Patient Ambulatory and/or Out of Bed No REE-([place]-St. Jeor-confined to bed) 1949.264 Calculation Used for Recommendations [place] Jeor Additional Notes Pro needs 0.8-1.5g/k-110g /day Fluid needs 1ml/kcal Nutrition Intervention Nutrition Support: Continue Nepro 1.8 at 35ml/hr Flush 150ml q4h Kcal 1,512 Protein (gm) 68 Fluid (mL) 611 Goal #1 TF tolerance Goal #2 TF to meet at least 75% energy and pro needs Follow-Up By: 03/18/20 Additional Comments F/U: stable TF, PEG placement, wt
[2020-03-16] MEDS: INSULIN LISPRO 100 UNIT/ML VIAL 3 mL SUB-Q SCH ×4 (00:10→17:48)
[2020-03-16 07:09] LABS: Calcium 7.9 mg/dL (8.4-10.2)
[2020-03-16] MEDS: FUROSEMIDE 40 MG/4 ML INJ IV SCH (09:50)
[2020-03-16] MEDS: ASCORBIC ACID 500 MG TAB PO SCH (09:50)
[2020-03-16] MEDS: CITALOPRAM 20 MG TAB PO SCH (09:53)
[2020-03-16] MEDS: MULTIVITAMINS 5 ML ORAL LIQUID PO SCH (09:53)
--- NOTE | 2020-03-16 16:44 | Progress Note ---
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 Pt is nonverbal and unable to provide history. Patient history taken from EMS staff, ED staff, and retirement facility staff. As per staff the patient was found to be ill-appearing this morning, and was breathing fast. EMS was notified and upon arrival the patient was found to be in distress and subsequently transported to [facility] for further care and evaluation of the aforementioned symptoms. Patient seen and evaluated in the emergency d epartment. Lab and imaging studies reviewed. Patient found to have sepsis complicated by septic shock, acute hypoxemic respiratory failure, metabolic acidosis, metabolic encephalopathy, acute kidney injury, and hyponatremia. Patient initiated on sepsis protocol and admitted to ICU due to increased risk for decompensation. Critical care team consult placed in the emergency department. No further history is obtainable. Prior admission on 02/26/2020 reviewed. All medication listed at time of admission has been reconciled. Advanced care planning conducted in the emergency department. Intermittent Hx: 54-year-old with acute metabolic encephalopathy multifactorial DKA and septic shock and acute respiratory failure recently extubated but continues with worsening Renal function. Septic shock Patient with septic shock secondary to UTI and pneumonia. Patient has leukocytosis as well as fever. Currently on pressor support. Patient did improve somewhat was able to extubate today. Patient DKA also improved with treatment of underlying etiology of infection. Responding pressor support and aggressive IV volume replacement. Continue cefepime and vancomycin. Follow any ID recommend further ID recommendations. Acute hypoxemic respiratory failure Patient now extubated most likely was secondary to infection and uremia metabolic acidosis. Acute kidney injury (RACH) with acute tubular necrosis (ATN) Patient with acute kidney injury. Vasomotor RACH in the setting of DKA. DKA (diabetic ketoacidoses) Patient DKA has resolved now most likely underlying sepsis infection. Will place patient on 70/30 insulin 15 units a.m. 10 units p.m. Diabetes Mellitus: continue sliding scale coverage Sacral Pressure Ulcer: Continue wound care Dsyphgia ?secondary to Encephalopathy Hyponatremia syndrome Hyponatremia has resolved Toxic Metabolic encephalopathy Metabolic encephalopathy multifactorial underlying dementia exacerbated by sepsis and hypoxemia. Hyperchloremic metabolic acidosis, bicarb drip, monitor. Replete Phos. Monitor lytes and volume status. Anemia: S/p PRBC. COVID 19 Pneumonia Patient is positive for COVID-19 infection. DM type 2, uncontrolled: IV fluids changed to bicarbonate drip in sterile water. DVT prophylaxis 03/08/2020. Patient with hypoglycemia yesterday and insulin schedule discontinued. Dobbhoff tube placement for tube feedings. Speech therapy reports high aspiration risk. Pulmonary had discussion with family to consider AND. Overall prognosis is guarded to poor. Strongly suggest considering pall iative care/hospice with this patient while at the skilled nursing. Patient with hemoglobin 6.5. Type and cross and transfuse 1 unit PRBCs. Check iron studies. 03/09/2020. Patient currently satting 98% on room air. Follow-up bilateral renal ultrasound for acute kidney injury. Nephrology following. COVID+ testing from 03/05/2020. However, patient with no hypoxia. Recheck inflammatory markers. Consider ID consultation. Pulmonary following. 03/10/2020. Patient with tube feeding in place and dietitian following with regards to feeding. Patient is s/p PRBCs of 1 unit. Hemoglobin improved to 8.7. Continue to follow CBC. Creatinine continues to worsen. Await renal ultrasound. Continue IV fluid hydration. 03/11/2020. Continue IV fluid hydration per nephrology. Creatinine appears to continue to worsen. Etiology likely secondary to acute kidney injury from vasomotor nephropathy. Still awaiting renal ultrasound. If unable to obtain,will consider CT of the abdomen/pelvis to rule out obstruction. Patient with COVID-19 infection but not hypoxic. Patient satting 98% on room air. Hemoglobin has stabilized at 8.6 s/p PRBCs. 03/12: Awaiting todays labs. IN Restriants, Discussed Peg placement with sister, Carlota Asif, @[phone]. Continue wound management. Continue current treatment. Renal function unfortunately now recovering nephrology following. 03/13: GI input noted, will hold anticoagluation while awaiting evaluation for LTAC just incase we may need to place PEG here if patients mental status is not improving. Also discussed with Nephrology, will start on lasix 40mg IV BID. Wound care following for sacral pressure ulcer 03/14: Revaluate Mental health, awaiting Labs to see impact of lasix on renal function, patient diuresis properly. Will change to Purewick. Discussed with GI, will give a few days as patients has never exhibited any dysphgia when mental status was normal. Hold Eliquis 03/15: Clinically improving now tolerating p.o. diet 03/16: Renal function appears to be stabilizing hoping that she has plateaued and will begin to show improvement. Continues with good urine output. We will continue to monitor. Continue fall precautions. History Interval history: Patient seen and examined today, improving today tolerating pured diet continues to show improvement. Hospitalist Physical - Physical exam Narrative exam: VITAL SIGNS: Reviewed. GENERAL: The patient appears normally developed, generalized anasarca, confused vital signs as documented. HEAD: No signs of head trauma. EYES: Pupils are equal. Extraocular motions intact. EARS: Hearing grossly intact. MOUTH: Oropharynx is normal, poor dentition. NECK: No adenopathy, no JVD. CHEST: Chest with diminished breath sounds bilaterally. No wheezes, rales, or rhonchi. CARDIAC: Regular rate and rhythm. S1 and S2, without murmurs, gallops, or rubs. VASCULAR: Positive edema. Peripheral pulses normal and equal in all extremities. ABDOMEN: Soft, non tender and non distended. No rebound or guarding, and no masses palpated. Bowel Sounds normal. MUSCULOSKELETAL: Good range of motion of all major joints. Extremities without clubbing, cyanosis. With bilateral pitting edema +[address] to the thigh. NEUROLOGIC EXAM: Lethargic, awake, speech is garbled. PSYCHIATRIC: Mood normal. SKIN: Excoriation in the perianal area secondary to loose stool. Detail exam as documented in skin assessment - Constitutional Vitals: Temp Pulse Resp BP Pulse Ox 98.4 F 98 H 20 106/63 99 03/16/20 16:36 03/16/20 16:36 03/16/20 16:36 03/16/20 16:36 03/16/20 16:36 General appearance: Present: mild distress Results - Labs CBC & Chem 7: 03/15/20 10:37 03/16/20 05:37 Labs: Laboratory Last Values WBC 5.4 K/mm3 (4.5-11.0) 03/15/20 10:37 RBC 2.32 M/mm3 (3.65-5.03) L 03/15/20 10:37 Hgb 7.2 gm/dl (10.1-14.3) L 03/15/20 10:37 Hct 21.2 % (30.3-42.9) L 03/15/20 10:37 MCV 91 fl (79-97) 03/15/20 10:37 MCH 31 pg (28-32) 03/15/20 10:37 MCHC 34 % (30-34) 03/15/20 10:37 RDW 15.2 % (13.2-15.2) 03/15/20 10:37 Plt Count 123 K/mm3 (140-440) L 03/15/20 10:37 Lymph % (Auto) 17.7 % (13.4-35.0) 03/10/20 Unknown Mcnairy % (Auto) Battery Tester And Repairer 03/13/20 13:30 Eos % (Auto) 0.6 % (0.0-4.3) 03/10/20 Unknown Baso % (Auto) 0.8 % (0.0-1.8) 03/10/20 Unknown Lymph # 1.2 K/mm3 (1.2-5.4) 03/10/20 Unknown Mcnairy # 0.7 K/mm3 (0.0-0.8) 03/10/20 Unknown Eos # 0.0 K/mm3 (0.0-0.4) 03/10/20 Unknown Baso # 0.1 K/mm3 (0.0-0.1) 03/10/20 Unknown Add Manual Diff Complete 03/13/20 13:30 Total Counted 100 03/13/20 13:30 Seg Neutrophils % 70.5 % (40.0-70.0) H 03/10/20 Unknown Seg Neuts % (Manual) 84.0 % (40.0-70.0) H 03/13/20 13:30 Band Neutrophils % 0 % 03/13/20 13:30 Lymphocytes % (Manual) 5.0 % (13.4-35.0) L 03/13/20 13:30 Reactive Lymphs % (Man) 0 % 03/13/20 13:30 Monocytes % (Manual) 11.0 % (0.0-7.3) H 03/13/20 13:30 Eosinophils % (Manual) 0 % (0.0-4.3) 03/13/20 13:30 Basophils % (Manual) 0 % (0.0-1.8) 03/13/20 13:30 Metamyelocytes % 0 % 03/13/20 13:30 Myelocytes % 0 % 03/13/20 13:30 Promyelocytes % 0 % 03/13/20 13:30 Blast Cells % 0 % 03/13/20 13:30 Nucleated RBC % Not Reportable 03/13/20 13:30 Seg Neutrophils # 4.8 K/mm3 (1.8-7.7) 03/10/20 Unknown Seg Neutrophils # Man 5.9 K/mm3 (1.8-7.7) 03/13/20 13:30 Band Neutrophils # 0.0 K/mm3 03/13/20 13:30 Lymphocytes # (Manual) 0.4 K/mm3 (1.2-5.4) L 03/13/20 13:30 Abs React Lymphs (Man) 0.0 K/mm3 03/13/20 13:30 Monocytes # (Manual) 0.8 K/mm3 (0.0-0.8) 03/13/20 13:30 Eosinophils # (Manual) 0.0 K/mm3 (0.0-0.4) 03/13/20 13:30 Basophils # (Manual) 0.0 K/mm3 (0.0-0.1) 03/13/20 13:30 Metamyelocytes # 0.0 K/mm3 03/13/20 13:30 Myelocytes # 0.0 K/mm3 03/13/20 13:30 Promyelocytes # 0.0 K/mm3 03/13/20 13:30 Blast Cells # 0.0 K/mm3 03/13/20 13:30 WBC Morphology Not Reportable 03/13/20 13:30 Hypersegmented Neuts Not Reportable 03/13/20 13:30 Hyposegmented Neuts Not Reportable 03/13/20 13:30 Hypogranular Neuts Not Reportable 03/13/20 13:30 Smudge Cells Not Reportable 03/13/20 13:30 Toxic Granulation Not Reportable 03/13/20 13:30 Toxic Vacuolation Not Reportable 03/13/20 13:30 Dohle Bodies Not Reportable 03/13/20 13:30 Pelger-Huet Anomaly Not Reportable 03/13/20 13:30 Jamia Rods Not Reportable 03/13/20 13:30 Platelet Estimate Not Reportable 03/13/20 13:30 Clumped Platelets Not Reportable 03/13/20 13:30 Plt Clumps, EDTA Not Reportable 03/13/20 13:30 Large Platelets Not Reportable 03/13/20 13:30 Giant Platelets Not Reportable 03/13/20 13:30 Platelet Satelliting Not Reportable 03/13/20 13:30 Plt Morphology Comment Not Reportable 03/13/20 13:30 RBC Morphology Normal 03/13/20 13:30 Dimorphic RBCs Not Reportable 03/13/20 13:30 Polychromasia Not Reportable 03/13/20 13:30 Hypochromasia Not Reportable 03/13/20 13:30 Poikilocytosis Not Reportable 03/13/20 13:30 Anisocytosis Not Reportable 03/13/20 13:30 Microcytosis Not Reportable 03/13/20 13:30 Macrocytosis Not Reportable 03/13/20 13:30 Spherocytes Not Reportable 03/13/20 13:30 Pappenheimer Bodies Not Reportable 03/13/20 13:30 Sickle Cells Not Reportable 03/13/20 13:30 Target Cells Not Reportable 03/13/20 13:30 Tear Drop Cells Not Reportable 03/13/20 13:30 Ovalocytes Not Reportable 03/13/20 13:30 Helmet Cells Not Reportable 03/13/20 13:30 [place] Bodies Not Reportable 03/13/20 13:30 Knott Rings Not Reportable 03/13/20 13:30 Luis Cells Not Reportable 03/13/20 13:30 Bite Cells Not Reportable 03/13/20 13:30 Crenated Cell Not Reportable 03/13/20 13:30 Elliptocytes Not Reportable 03/13/20 13:30 Acanthocytes (Spur) Not Reportable 03/13/20 13:30 Rouleaux Not Reportable 03/13/20 13:30 Hemoglobin C Crystals Not Reportable 03/13/20 13:30 Schistocytes Not Reportable 03/13/20 13:30 Malaria parasites Not Reportable 03/13/20 13:30 Felice Bodies Not Reportable 03/13/20 13:30 Hem Pathologist Commnt No 03/13/20 13:30 D-Dimer 544.72 ng/mlDDU (0-234) H 03/09/20 10:01 ABG pH 7.470 pH Units (7.350-7.450) H 03/06/20 08:42 ABG pCO2 21.5 mm Hg 03/06/20 08:42 ABG pO2 451.0 mm Hg (80.0-90.0) H 03/06/20 08:42 ABG HCO3 15.3 mmol/L (20.0-26.0) L 03/06/20 08:42 ABG O2 Saturation 99.6 % (95.0-99.0) H 03/06/20 08:42 ABG O2 Content 12.0 (0.0-44) 03/06/20 08:42 ABG Base Excess -7.3 mmol/L (-2.0-3.0) L 03/06/20 08:42 ABG Hemoglobin 7.7 gm/dl (12.0-16.0) L 03/06/20 08:42 ABG Carboxyhemoglobin 0.9 % (0.0-5.0) 03/06/20 08:42 ABG Methemoglobin 0.5 % (0.0-1.5) 03/06/20 08:42 Oxyhemoglobin 98.2 % (95.0-99.0) 03/06/20 08:42 FiO2 100 % 03/06/20 08:42 Sodium 138 mmol/L (137-145) 03/16/20 05:37 Potassium 4.2 mmol/L (3.6-5.0) 03/16/20 05:37 Chloride 99.4 mmol/L (98-107) 03/16/20 05:37 Carbon Dioxide 24 mmol/L (22-30) 03/16/20 05:37 Anion Gap 19 mmol/L 03/16/20 05:37 BUN 72 mg/dL (7-17) H 03/16/20 05:37 Creatinine 4.0 mg/dL (0.6-1.2) H 03/16/20 05:37 Estimated GFR 12 ml/min 03/16/20 05:37 BUN/Creatinine Ratio 18 % 03/16/20 05:37 Glucose 116 mg/dL (65-100) H 03/16/20 05:37 POC Glucose 278 (70-105) H 03/16/20 11:29 Lactic Acid 4.30 mmol/L (0.7-2.0) H* 03/06/20 14:35 Calcium 7.9 mg/dL (8.4-10.2) L 03/16/20 05:37 Phosphorus 2.70 mg/dL (2.5-4.5) D 03/13/20 13:30 Magnesium 1.80 mg/dL (1.7-2.3) 03/05/20 11:18 Iron 106 ug/dL (37-170) 03/08/20 12:00 TIBC 101 mcg/dL (250-450) L 03/08/20 12:00 Ferritin 835.3 ng/mL (10.0-200.0) H 03/09/20 10:01 Total Bilirubin < 0.20 mg/dL (0.1-1.2) 03/13/20 13:30 AST 22 units/L (5-40) 03/13/20 13:30 ALT 12 units/L (7-56) 03/13/20 13:30 Alkaline Phosphatase 248 units/L (35-129) H 03/13/20 13:30 Lactate Dehydrogenase 460 units/L (91-180) H 03/09/20 10:01 C-Reactive Protein 3.50 mg/dL (0.00-1.30) H 03/09/20 10:01 Total Protein 4.4 g/dL (6.3-8.2) L 03/13/20 13:30 Albumin 1.6 g/dL (3.9-5) L 03/13/20 13:30 Albumin/Globulin Ratio 0.6 % 03/13/20 13:30 Vitamin B12 1453 pg/mL (211-911) H 03/09/20 00:20 Folate 8.06 ng/mL (7.3-26.0) 03/09/20 00:20 Procalcitonin 10.61 ng/mL (<0.15) 03/09/20 Unknown Urine Color Yellow (Yellow) 03/06/20 Unknown Urine Turbidity Cloudy (Clear) 03/06/20 Unknown Urine pH 5.0 (5.0-7.0) 03/06/20 Unknown Ur Specific [place] 1.009 (1.003-1.030) 03/06/20 Unknown Urine Protein <15 mg/dl mg/dL (Negative) 03/06/20 Unknown Urine Glucose (UA) >=500 mg/dL (Negative) 03/06/20 Unknown Urine Ketones 20 mg/dL (Negative) 03/06/20 Unknown Urine Blood Sm (Negative) 03/06/20 Unknown Urine Nitrite Neg (Negative) 03/06/20 Unknown Urine Bilirubin Neg (Negative) 03/06/20 Unknown Urine Urobilinogen < 2.0 mg/dL (<2.0) 03/06/20 Unknown Ur Leukocyte Esterase Neg (Negative) 03/06/20 Unknown Urine WBC (Auto) 2.0 /HPF (0.0-6.0) 03/06/20 Unknown Urine RBC (Auto) > 182.0 /HPF (0.0-6.0) 03/06/20 Unknown Urine Bacteria (Auto) 1+ /HPF (Negative) 03/06/20 Unknown Urine Yeast (Budding) 3+ /HPF 03/06/20 Unknown Urine Creatinine 19.3 mg/dL (0.1-20.0) 03/08/20 11:41 Urine Sodium 71 mmol/L 03/08/20 11:41 Nasal Screen MRSA (PCR) Negative (Negative) 03/06/20 02:50 Coronavirus (PCR) Positive (Negative) A 03/05/20 Unknown Blood Type O POSITIVE 03/09/20 00:20 Antibody Screen Negative 03/09/20 00:20 Crossmatch See Detail 03/09/20 00:20 - Diagnostic Impressions Diagnostic Impressions: Echocardiogram 03/13/20 08:11 Transthoracic Echocardiogram Indication: SOB BP: 109/62 HR: 97 Conclusions *The study quality is technically difficult. Altered metal status. *Global left ventricular systolic function is normal. *The estimated ejection fraction is 60-65%. *The right ventricular chamber size and systolic function are within normal limits. *The aortic valve is not well visualized. *There is no evidence of aortic regurgitation. *There is no evidence of aortic stenosis. *There is no evidence of mitral regurgitation. *There is no evidence of tricuspid valve regurgitation. *The pulmonic valve is not well visualized. Findings Procedure Info: The study quality is technically difficult. Altered metal status. The study is technically limited due to patient body habitus. The study was technically limited due to the patient's inability to lay in the left lateral decubitus position. Left Ventricle: The left ventricular chamber size is normal. Global left ventricular systolic function is normal. The estimated ejection fraction is 60-65%. Left Atrium: The left atrial chamber size is normal. Right Ventricle: The right ventricular chamber size and systolic function are within normal limits. Right Atrium: The right atrium appears normal. Aortic Valve: The aortic valve is not well visualized. There is no evidence of aortic regurgitation. There is no evidence of aortic stenosis. Mitral Valve: The mitral valve leaflets appear normal. There is no evidence of mitral regurgitation. Tricuspid Valve: The tricuspid valve appears normal in structure and function. There is no evidence of tricuspid valve regurgitation. Pulmonic Valve: The pulmonic valve is not well visualized. Pericardium: There is no pericardial effusion. Aorta: The aorta appears normal. Measurements Chambers 2D Name Value Normal Range IVSd (2D) 0.75 cm (0.6 - 1.1) LVPWd (2D) 0.83 cm (0.6 - 1.1) LVIDd (2D) 3.68 cm (3.7 - 5.6) LVIDs (2D) 2.16 cm (2 - 3.8) LV FS (2D) 41.17 % - EF Teichholz (2D) 72.89 % - Ao root diameter (2D) 2.67 cm (2 - 3.7) Volumes/Mass Name Value Normal Range LV EDV SP 4CH (MOD) 77.78 ml - LV ESV SP 4CH (MOD) 22.18 ml - EF SP 4CH (MOD) 71.49 % - LV EDV SP 2CH (MOD) 80.81 ml - LV ESV SP 2CH (MOD) 24.58 ml - EF SP 2CH (MOD) 69.58 % - LV EDV BP 81.61 ml - LV ESV BP 25.39 ml - BP EF (MOD) 68.89 % - Aortic Valve Name Value Normal Range LVOT diameter 1.92 cm - Tricuspid Valve Name Value Normal Range IVC diameter 1.1 cm (1.2 - 2.3) Verma/IV: Voiding Method Indwelling Catheter IV Catheter Type [Right Triple Lumen Cath Internal Jugular] IV Catheter Type [Right Leg] Intra-osseous IV Catheter Type [Left Leg] Intra-osseous Active Medications - Current Medications Current Medications: Generic Name Dose Route Start Last Admin Trade Name Freq PRN Reason Stop Dose Admin Lipase/Protease/Amylase 1 each 03/08/20 09:00 03/13/20 09:32 Pancreazdelfin Card 10,500 Unit FEEDTUBE 1 each PRN PRN Administration For Clogged Feeding Tube Ascorbic Acid 500 mg 03/12/20 10:00 03/16/20 09:50 Vitamin C PO 500 mg DAILY SHAHLA Administration Citalopram Hydrobromide 20 mg 03/12/20 10:00 03/16/20 09:53 Celexa PO 20 mg QDAY SHAHLA Administration Dextrose 0 ml 03/05/20 12:09 03/13/20 07:03 D50w (25gm) Syringe IV 20 ml Q30MIN PRN Administration Hypoglycemia Protocol Furosemide 40 mg 03/16/20 10:00 03/16/20 09:50 Lasix IV 40 mg DAILY SHAHLA Administration Insulin Human Lispro 0 unit 03/07/20 01:00 03/16/20 13:23 Humalog SUB-Q 6 unit Q6HR SHAHLA Administration Protocol Multivitamins 5 ml 03/12/20 10:00 03/16/20 09:53 Centrum Liq PO 5 ml QDAY SHAHLA Administration Pravastatin Sodium 40 mg 03/12/20 22:00 03/15/20 22:07 Pravachol PO 40 mg QHS SHAHLA Administration Simple Syrup 15 ml 03/08/20 09:00 Simple Syrup FEEDTUBE PRN PRN Hypoglycemia Simple Syrup 30 ml 03/08/20 09:00 Simple Syrup FEEDTUBE PRN PRN Hypoglycemia Sodium Bicarbonate 325 mg 03/08/20 09:00 Sodium Bicarbonate FEEDTUBE PRN PRN For Clogged Feeding Tube Sodium Chloride 10 ml 03/05/20 22:00 03/16/20 09:52 Sodium Chloride Flush Syringe 10 Ml IV 10 ml BID SHAHLA Administration Sodium Chloride 10 ml 03/05/20 12:13 Sodium Chloride Flush Syringe 10 Ml IV PRN PRN LINE FLUSH Nutrition/Malnutrition Assess - Dietary Evaluation Nutrition/Malnutrition Findings: Nutrition Notes Start: 03/06/20 12:14 Freq: Status: Active Protocol: Document 03/11/20 11:14 SUSANA (Rec: 03/11/20 11:21 SUSANA [email or web address]- [email or web address]) Nutrition Notes Initial or Follow up Reassessment Current Diagnosis Acute Kidney Injury Other Pertinent Diagnosis COVID-19 (+), pneu, metabolic encephalopathy Current Diet TF - Nepro at 35ml/hr Labs/Tests Na 133 (likely 136-138) BG 291 BUN 52 Cr 3.1 Phos 2.2 Pertinent Medications reviewed Height 5 ft 3 in Weight 73 kg [place] Body Weight (kg) 52.27 BMI 28.5 Subjective/Other Information Spoke with RN via phone at 11: 07. Pt tolerating TF at goal rate. Per [employer]ER evaluation this am, pt unlikely to consume adequate PO to meet nutrient needs; recommends PEG placement. Burn Absent Trauma Absent #2 Nutrition Diagnosis Increased nutrient needs ( specify in comment below) Diagnosis Progress(for reassessment Continues documentation) #1 Nutrition Diagnosis Inadequate oral intake Diagnosis Progress(for reassessment Continues documentation) Is patient on ventilator? No Is Patient Ambulatory and/or Out of Bed No REE-(Dundy-St. Jeor-confined to bed) 1614.815 Calculation Used for Recommendations Dundy-St Jeor Additional Notes Pro needs 0.8-1.5g/k-110g /day Fluid needs 1ml/kcal Nutrition Intervention Nutrition Support: Continue Nepro 1.8 at 35ml/hr Flush 150ml q4h Kcal 1,512 Protein (gm) 68 Fluid (mL) 611 Goal #1 TF tolerance Goal #2 TF to meet at least 75% energy and pro needs Follow-Up By: 03/18/20 Additional Comments F/U: stable TF, PEG placement, wt
[2020-03-16] MEDS: PRAVASTATIN 40 MG TAB PO SCH (22:11)
[2020-03-17] MEDS: INSULIN LISPRO 100 UNIT/ML VIAL 3 mL SUB-Q SCH ×4 (00:37→21:28)
--- NOTE | 2020-03-17 08:05 | Progress Note ---
Assessment and Plan 1. Acute kidney injury: Vasomotor RACH in the setting of DKA and septic shock. Renal US ordered. Also talked to the technical recruiter. Creatinine level is about the same, 4 today. Monitor renal function. Pt is non-oliguric. IV fluids stopped due to edema. Unable to give Heparin / Lovenox due to anemia and thrombocytopenia. Renal prognosis is guarded. Avoid nephrotoxic agents. Meds dosage based on GFR. Monitor for CONTENT MANAGEMENT CONSULTANT needs. 2. FEN: Hyperchloremic metabolic acidosis, improved. On IV Lasix. Monitor lytes and volume status. 3. Acute hypoxic respiratory failure: S/p extubated. NC O2. Followed by Pulmonary. 4. COVID-19 infection. Follow cultures. 5. Sepsis with shock, POA: 2/2 COVID-19 infection. BP is better. 6. Anemia: S/p PRBC. 7. DM type 2, uncontrolled: Blood sugar is better. 8. HTN: Monitor BP. 9. Metabolic encephalopathy, POA. - Subjective: Patient was seen and examined at the bedside. - General Appearance: General appearance: appears stated age, not in distress, appears chronically ill HEENT: CAITY Neck: Trachea midline Respiratory: appears ctab Cardiology: regular, S1S2, no murmur Gastrointestinal: normoactive bowel sounds, not tender, not distended Integumentary: no rash, warm and dry Neurologic: alert, able to move extremities, appears very confused Ext: 1+ LE edema : Verma catheter Subjective Date of service: 03/16/20 Principal diagnosis: Septic shock acute respiratory failure Objective - Vital Signs Vital signs: Vital Signs - 12hr 03/16/20 03/16/20 03/17/20 21:42 22:15 05:06 Temperature 97.3 F L 97.4 F L Pulse Rate 93 H 85 Respiratory 16 16 Rate Blood Pressure 115/51 113/56 125/71 O2 Sat by Pulse 95 100 Oximetry - Lab 03/15/20 10:37 03/16/20 05:37 Most recent lab results ABG pH 7.470 pH Units (7.350-7.450) H 03/06/20 08:42 ABG pCO2 21.5 mm Hg 03/06/20 08:42 ABG pO2 451.0 mm Hg (80.0-90.0) H 03/06/20 08:42 ABG HCO3 15.3 mmol/L (20.0-26.0) L 03/06/20 08:42 ABG O2 Saturation 99.6 % (95.0-99.0) H 03/06/20 08:42 Calcium 7.9 mg/dL (8.4-10.2) L 03/16/20 05:37 Phosphorus 2.70 mg/dL (2.5-4.5) D 03/13/20 13:30 Magnesium 1.80 mg/dL (1.7-2.3) 03/05/20 11:18 Urine Creatinine 19.3 mg/dL (0.1-20.0) 03/08/20 11:41 Urine Sodium 71 mmol/L 03/08/20 11:41 Medications & Allergies - Medications Allergies/Adverse Reactions: Allergies No Known Allergies Allergy (Verified 02/26/20 10:24) Home Medications: Home Medications Medication Instructions Recorded Confirmed Last Taken Type Citalopram [Celexa] 20 mg PO QDAY 01/25/20 03/06/20 Unknown History Pravastatin [Pravachol] 40 mg PO QHS 01/25/20 03/06/20 Unknown History Acetaminophen [Mapap] 650 mg PO BID PRN 02/26/20 03/06/20 Unknown History Ascorbic Acid [Vitamin C with Chetna 500 mg PO DAILY 02/26/20 03/06/20 Unknown History Hips] Glimepiride [Amaryl] 4 mg PO QAM 02/26/20 03/06/20 Unknown History Insulin Lispro [Humalog] 5 units SQ AC 02/26/20 03/06/20 Unknown History Multivit-Min/Ferrous Fumarate 15 mg PO DAILY 02/26/20 03/06/20 Unknown History [Multivitamin with Minerals Tab] Apixaban [Eliquis] 2.5 mg PO BID #30 tablet 03/01/20 03/06/20 Unknown Rx Insulin Glargine [Lantus VIAL] 15 units SUB-Q BID #100 units 03/01/20 03/06/20 Unknown Rx levoFLOXacin [Levaquin TAB] 500 mg PO QDAY #3 tablet 03/01/20 03/06/20 Unknown Rx Active Medications: Generic Name Dose Route Start Last Admin Trade Name Freq PRN Reason Stop Dose Admin Lipase/Protease/Amylase 1 each 03/08/20 09:00 03/13/20 09:32 Pancreaze 10,500 Unit FEEDTUBE 1 each PRN PRN Administration For Clogged Feeding Tube Ascorbic Acid 500 mg 03/12/20 10:00 03/16/20 09:50 Vitamin C PO 500 mg DAILY SHAHLA Administration Citalopram Hydrobromide 20 mg 03/12/20 10:00 03/16/20 09:53 Celexa PO 20 mg QDAY SHAHLA Administration Dextrose 0 ml 03/05/20 12:09 03/13/20 07:03 D50w (25gm) Syringe IV 20 ml Q30MIN PRN Administration Hypoglycemia Protocol Furosemide 40 mg 03/16/20 10:00 03/16/20 09:50 Lasix IV 40 mg DAILY SHAHLA Administration Insulin Human Lispro 0 unit 03/07/20 01:00 03/17/20 00:37 Humalog SUB-Q Not Given Q6HR [facility] Protocol Multivitamins 5 ml 03/12/20 10:00 03/16/20 09:53 Centrum Liq PO 5 ml QDAY SHAHLA Administration Pravastatin Sodium 40 mg 03/12/20 22:00 03/16/20 22:11 Pravachol PO 40 mg QHS SHAHLA Administration Simple Syrup 15 ml 03/08/20 09:00 Simple Syrup FEEDTUBE PRN PRN Hypoglycemia Simple Syrup 30 ml 03/08/20 09:00 Simple Syrup FEEDTUBE PRN PRN Hypoglycemia Sodium Bicarbonate 325 mg 03/08/20 09:00 Sodium Bicarbonate FEEDTUBE PRN PRN For Clogged Feeding Tube Sodium Chloride 10 ml 03/05/20 22:00 03/16/20 22:12 Sodium Chloride Flush Syringe 10 Ml IV 10 ml BID SHAHLA Administration Sodium Chloride 10 ml 03/05/20 12:13 Sodium Chloride Flush Syringe 10 Ml IV PRN PRN LINE FLUSH
--- NOTE | 2020-03-17 08:36 | Progress Note ---
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 Pt is nonverbal and unable to provide history. Patient history taken from EMS staff, ED staff, and [facility] facility staff. As per staff the patient was found to be ill-appearing this morning, and was breathing fast. EMS was notified and upon arrival the patient was found to be in distress and subsequently transported to [facility] for further care and evaluation of the aforementioned symptoms. Patient seen and evaluated in the emergency d epartment. Lab and imaging studies reviewed. Patient found to have sepsis complicated by septic shock, acute hypoxemic respiratory failure, metabolic acidosis, metabolic encephalopathy, acute kidney injury, and hyponatremia. Patient initiated on sepsis protocol and admitted to ICU due to increased risk for decompensation. Critical care team consult placed in the emergency department. No further history is obtainable. Prior admission on 02/26/2020 reviewed. All medication listed at time of admission has been reconciled. Advanced care planning conducted in the emergency department. Intermittent Hx: 54-year-old with acute metabolic encephalopathy multifactorial DKA and septic shock and acute respiratory failure recently extubated but continues with worsening Renal function. Septic shock Patient with septic shock secondary to UTI and pneumonia. Patient has leukocytosis as well as fever. Currently on pressor support. Patient did improve somewhat was able to extubate today. Patient DKA also improved with treatment of underlying etiology of infection. Responding pressor support and aggressive IV volume replacement. Continue cefepime and vancomycin. Follow any ID recommend further ID recommendations. Acute hypoxemic respiratory failure Patient now extubated most likely was secondary to infection and uremia metabolic acidosis. Acute kidney injury (RACH) with acute tubular necrosis (ATN) Patient with acute kidney injury. Vasomotor RACH in the setting of DKA. DKA (diabetic ketoacidoses) Patient DKA has resolved now most likely underlying sepsis infection. Will place patient on 70/30 insulin 15 units a.m. 10 units p.m. Diabetes Mellitus: continue sliding scale coverage Sacral Pressure Ulcer: Continue wound care Dsyphgia ?secondary to Encephalopathy Hyponatremia syndrome Hyponatremia has resolved Toxic Metabolic encephalopathy Metabolic encephalopathy multifactorial underlying dementia exacerbated by sepsis and hypoxemia. Hyperchloremic metabolic acidosis, bicarb drip, monitor. Replete Phos. Monitor lytes and volume status. Anemia: S/p PRBC. COVID 19 Pneumonia Patient is positive for COVID-19 infection. DM type 2, uncontrolled: IV fluids changed to bicarbonate drip in sterile water. DVT prophylaxis 03/08/2020. Patient with hypoglycemia yesterday and insulin schedule discontinued. Dobbhoff tube placement for tube feedings. Speech therapy reports high aspiration risk. Pulmonary had discussion with family to consider AND. Overall prognosis is guarded to poor. Strongly suggest considering pall iative care/hospice with this patient while at the [facility]. Patient with hemoglobin 6.5. Type and cross and transfuse 1 unit PRBCs. Check iron studies. 03/09/2020. Patient currently satting 98% on room air. Follow-up bilateral renal ultrasound for acute kidney injury. Nephrology following. COVID+ testing from 03/05/2020. However, patient with no hypoxia. Recheck inflammatory markers. Consider ID consultation. Pulmonary following. 03/10/2020. Patient with tube feeding in place and dietitian following with regards to feeding. Patient is s/p PRBCs of 1 unit. Hemoglobin improved to 8.7. Continue to follow CBC. Creatinine continues to worsen. Await renal ultrasound. Continue IV fluid hydration. 03/11/2020. Continue IV fluid hydration per nephrology. Creatinine appears to continue to worsen. Etiology likely secondary to acute kidney injury from vasomotor nephropathy. Still awaiting renal ultrasound. If unable to obtain,will consider CT of the abdomen/pelvis to rule out obstruction. Patient with COVID-19 infection but not hypoxic. Patient satting 98% on room air. Hemoglobin has stabilized at 8.6 s/p PRBCs. 03/12: Awaiting todays labs. IN Restriants, Discussed Peg placement with sister, Carlota Asif, @[phone]. Continue wound management. Continue current treatment. Renal function unfortunately now recovering nephrology following. 03/13: GI input noted, will hold anticoagluation while awaiting evaluation for LTAC just incase we may need to place PEG here if patients mental status is not improving. Also discussed with Nephrology, will start on lasix 40mg IV BID. Wound care following for sacral pressure ulcer 03/14: Revaluate Mental health, awaiting Labs to see impact of lasix on renal function, patient diuresis properly. Will change to Purewick. Discussed with GI, will give a few days as patients has never exhibited any dysphgia when mental status was normal. Hold Eliquis 03/15: Clinically improving now tolerating p.o. diet 03/16: Renal function appears to be stabilizing hoping that she has plateaued and will begin to show improvement. Continues with good urine output. We will continue to monitor. Continue fall precautions. 03/17: Patient seen and examined, awaiting labs today, continue diuresis. discussed with nursing staff. Anticipate if renal function is improving to begin discharge plans. Continue wound care. History Interval history: Patient seen and examined today, continues to improve clinically Hospitalist Physical - Physical exam Narrative exam: VITAL SIGNS: Reviewed. GENERAL: The patient appears normally developed, generalized anasarca improving, confused vital signs as documented. HEAD: No signs of head trauma. EYES: Pupils are equal. Extraocular motions intact. EARS: Hearing grossly intact. MOUTH: Oropharynx is normal, poor dentition. NECK: No adenopathy, no JVD. CHEST: Chest with diminished breath sounds bilaterally. No wheezes, rales, or rhonchi. CARDIAC: Regular rate and rhythm. S1 and S2, without murmurs, gallops, or ru bs. VASCULAR: Positive edema. Peripheral pulses normal and equal in all extremities. ABDOMEN: Soft, non tender and non distended. No rebound or guarding, and no masses palpated. Bowel Sounds normal. MUSCULOSKELETAL: Good range of motion of all major joints. Extremities without clubbing, cyanosis. With bilateral pitting edema +1 lower ext, improving NEUROLOGIC EXAM: awake, speech clear but still confused PSYCHIATRIC: Mood normal. SKIN: Excoriation in the perianal area secondary to loose stool. Detail exam as documented in skin assessment - Constitutional Vitals: Temp Pulse Resp BP Pulse Ox 97.4 F L 85 16 125/71 100 03/17/20 05:06 03/17/20 05:06 03/17/20 05:06 03/17/20 05:06 03/17/20 05:06 General appearance: Present: mild distress Results - Labs CBC & Chem 7: 03/15/20 10:37 03/16/20 05:37 Labs: Laboratory Last Values WBC 5.4 K/mm3 (4.5-11.0) 03/15/20 10:37 RBC 2.32 M/mm3 (3.65-5.03) L 03/15/20 10:37 Hgb 7.2 gm/dl (10.1-14.3) L 03/15/20 10:37 Hct 21.2 % (30.3-42.9) L 03/15/20 10:37 MCV 91 fl (79-97) 03/15/20 10:37 MCH 31 pg (28-32) 03/15/20 10:37 MCHC 34 % (30-34) 03/15/20 10:37 RDW 15.2 % (13.2-15.2) 03/15/20 10:37 Plt Count 123 K/mm3 (140-440) L 03/15/20 10:37 Lymph % (Auto) 17.7 % (13.4-35.0) 03/10/20 Unknown [place] % (Auto) Cigarette And Filter Chief Inspector 03/13/20 13:30 Eos % (Auto) 0.6 % (0.0-4.3) 03/10/20 Unknown Baso % (Auto) 0.8 % (0.0-1.8) 03/10/20 Unknown Lymph # 1.2 K/mm3 (1.2-5.4) 03/10/20 Unknown [place] # 0.7 K/mm3 (0.0-0.8) 03/10/20 Unknown Eos # 0.0 K/mm3 (0.0-0.4) 03/10/20 Unknown Baso # 0.1 K/mm3 (0.0-0.1) 03/10/20 Unknown Add Manual Diff Complete 03/13/20 13:30 Total Counted 100 03/13/20 13:30 Seg Neutrophils % 70.5 % (40.0-70.0) H 03/10/20 Unknown Seg Neuts % (Manual) 84.0 % (40.0-70.0) H 03/13/20 13:30 Band Neutrophils % 0 % 03/13/20 13:30 Lymphocytes % (Manual) 5.0 % (13.4-35.0) L 03/13/20 13:30 Reactive Lymphs % (Man) 0 % 03/13/20 13:30 Monocytes % (Manual) 11.0 % (0.0-7.3) H 03/13/20 13:30 Eosinophils % (Manual) 0 % (0.0-4.3) 03/13/20 13:30 Basophils % (Manual) 0 % (0.0-1.8) 03/13/20 13:30 Metamyelocytes % 0 % 03/13/20 13:30 Myelocytes % 0 % 03/13/20 13:30 Promyelocytes % 0 % 03/13/20 13:30 Blast Cells % 0 % 03/13/20 13:30 Nucleated RBC % Not Reportable 03/13/20 13:30 Seg Neutrophils # 4.8 K/mm3 (1.8-7.7) 03/10/20 Unknown Seg Neutrophils # Man 5.9 K/mm3 (1.8-7.7) 03/13/20 13:30 Band Neutrophils # 0.0 K/mm3 03/13/20 13:30 Lymphocytes # (Manual) 0.4 K/mm3 (1.2-5.4) L 03/13/20 13:30 Abs React Lymphs (Man) 0.0 K/mm3 03/13/20 13:30 Monocytes # (Manual) 0.8 K/mm3 (0.0-0.8) 03/13/20 13:30 Eosinophils # (Manual) 0.0 K/mm3 (0.0-0.4) 03/13/20 13:30 Basophils # (Manual) 0.0 K/mm3 (0.0-0.1) 03/13/20 13:30 Metamyelocytes # 0.0 K/mm3 03/13/20 13:30 Myelocytes # 0.0 K/mm3 03/13/20 13:30 Promyelocytes # 0.0 K/mm3 03/13/20 13:30 Blast Cells # 0.0 K/mm3 03/13/20 13:30 WBC Morphology Not Reportable 03/13/20 13:30 Hypersegmented Neuts Not Reportable 03/13/20 13:30 Hyposegmented Neuts Not Reportable 03/13/20 13:30 Hypogranular Neuts Not Reportable 03/13/20 13:30 Smudge Cells Not Reportable 03/13/20 13:30 Toxic Granulation Not Reportable 03/13/20 13:30 Toxic Vacuolation Not Reportable 03/13/20 13:30 Dohle Bodies Not Reportable 03/13/20 13:30 Pelger-Huet Anomaly Not Reportable 03/13/20 13:30 Jamia Rods Not Reportable 03/13/20 13:30 Platelet Estimate Not Reportable 03/13/20 13:30 Clumped Platelets Not Reportable 03/13/20 13:30 Plt Clumps, EDTA Not Reportable 03/13/20 13:30 Large Platelets Not Reportable 03/13/20 13:30 Giant Platelets Not Reportable 03/13/20 13:30 Platelet Satelliting Not Reportable 03/13/20 13:30 Plt Morphology Comment Not Reportable 03/13/20 13:30 RBC Morphology Normal 03/13/20 13:30 Dimorphic RBCs Not Reportable 03/13/20 13:30 Polychromasia Not Reportable 03/13/20 13:30 Hypochromasia Not Reportable 03/13/20 13:30 Poikilocytosis Not Reportable 03/13/20 13:30 Anisocytosis Not Reportable 03/13/20 13:30 Microcytosis Not Reportable 03/13/20 13:30 Macrocytosis Not Reportable 03/13/20 13:30 Spherocytes Not Reportable 03/13/20 13:30 Pappenheimer Bodies Not Reportable 03/13/20 13:30 Sickle Cells Not Reportable 03/13/20 13:30 Target Cells Not Reportable 03/13/20 13:30 Tear Drop Cells Not Reportable 03/13/20 13:30 Ovalocytes Not Reportable 03/13/20 13:30 Helmet Cells Not Reportable 03/13/20 13:30 Galvan-Shoreline Bodies Not Reportable 03/13/20 13:30 [place]on Rings Not Reportable 03/13/20 13:30 [place]quette Cells Not Reportable 03/13/20 13:30 Bite Cells Not Reportable 03/13/20 13:30 Crenated Cell Not Reportable 03/13/20 13:30 Elliptocytes Not Reportable 03/13/20 13:30 Acanthocytes (Spur) Not Reportable 03/13/20 13:30 Rouleaux Not Reportable 03/13/20 13:30 Hemoglobin C Crystals Not Reportable 03/13/20 13:30 Schistocytes Not Reportable 03/13/20 13:30 Malaria parasites Not Reportable 03/13/20 13:30 Felice Bodies Not Reportable 03/13/20 13:30 Hem Pathologist Commnt No 03/13/20 13:30 D-Dimer 544.72 ng/mlDDU (0-234) H 03/09/20 10:01 ABG pH 7.470 pH Units (7.350-7.450) H 03/06/20 08:42 ABG pCO2 21.5 mm Hg 03/06/20 08:42 ABG pO2 451.0 mm Hg (80.0-90.0) H 03/06/20 08:42 ABG HCO3 15.3 mmol/L (20.0-26.0) L 03/06/20 08:42 ABG O2 Saturation 99.6 % (95.0-99.0) H 03/06/20 08:42 ABG O2 Content 12.0 (0.0-44) 03/06/20 08:42 ABG Base Excess -7.3 mmol/L (-2.0-3.0) L 03/06/20 08:42 ABG Hemoglobin 7.7 gm/dl (12.0-16.0) L 03/06/20 08:42 ABG Carboxyhemoglobin 0.9 % (0.0-5.0) 03/06/20 08:42 ABG Methemoglobin 0.5 % (0.0-1.5) 03/06/20 08:42 Oxyhemoglobin 98.2 % (95.0-99.0) 03/06/20 08:42 FiO2 100 % 03/06/20 08:42 Sodium 138 mmol/L (137-145) 03/16/20 05:37 Potassium 4.2 mmol/L (3.6-5.0) 03/16/20 05:37 Chloride 99.4 mmol/L (98-107) 03/16/20 05:37 Carbon Dioxide 24 mmol/L (22-30) 03/16/20 05:37 Anion Gap 19 mmol/L 03/16/20 05:37 BUN 72 mg/dL (7-17) H 03/16/20 05:37 Creatinine 4.0 mg/dL (0.6-1.2) H 03/16/20 05:37 Estimated GFR 12 ml/min 03/16/20 05:37 BUN/Creatinine Ratio 18 % 03/16/20 05:37 Glucose 116 mg/dL (65-100) H 03/16/20 05:37 POC Glucose 147 (70-105) H 03/16/20 22:00 Lactic Acid 4.30 mmol/L (0.7-2.0) H* 03/06/20 14:35 Calcium 7.9 mg/dL (8.4-10.2) L 03/16/20 05:37 Phosphorus 2.70 mg/dL (2.5-4.5) D 03/13/20 13:30 Magnesium 1.80 mg/dL (1.7-2.3) 03/05/20 11:18 Iron 106 ug/dL (37-170) 03/08/20 12:00 TIBC 101 mcg/dL (250-450) L 03/08/20 12:00 Ferritin 835.3 ng/mL (10.0-200.0) H 03/09/20 10:01 Total Bilirubin < 0.20 mg/dL (0.1-1.2) 03/13/20 13:30 AST 22 units/L (5-40) 03/13/20 13:30 ALT 12 units/L (7-56) 03/13/20 13:30 Alkaline Phosphatase 248 units/L (35-129) H 03/13/20 13:30 Lactate Dehydrogenase 460 units/L (91-180) H 03/09/20 10:01 C-Reactive Protein 3.50 mg/dL (0.00-1.30) H 03/09/20 10:01 Total Protein 4.4 g/dL (6.3-8.2) L 03/13/20 13:30 Albumin 1.6 g/dL (3.9-5) L 03/13/20 13:30 Albumin/Globulin Ratio 0.6 % 03/13/20 13:30 Vitamin B12 1453 pg/mL (211-911) H 03/09/20 00:20 Folate 8.06 ng/mL (7.3-26.0) 03/09/20 00:20 Procalcitonin 10.61 ng/mL (<0.15) 03/09/20 Unknown Urine Color Yellow (Yellow) 03/06/20 Unknown Urine Turbidity Cloudy (Clear) 03/06/20 Unknown Urine pH 5.0 (5.0-7.0) 03/06/20 Unknown Ur Specific [place] 1.009 (1.003-1.030) 03/06/20 Unknown Urine Protein <15 mg/dl mg/dL (Negative) 03/06/20 Unknown Urine Glucose (UA) >=500 mg/dL (Negative) 03/06/20 Unknown Urine Ketones 20 mg/dL (Negative) 03/06/20 Unknown Urine Blood Sm (Negative) 03/06/20 Unknown Urine Nitrite Neg (Negative) 03/06/20 Unknown Urine Bilirubin Neg (Negative) 03/06/20 Unknown Urine Urobilinogen < 2.0 mg/dL (<2.0) 03/06/20 Unknown Ur Leukocyte Esterase Neg (Negative) 03/06/20 Unknown Urine WBC (Auto) 2.0 /HPF (0.0-6.0) 03/06/20 Unknown Urine RBC (Auto) > 182.0 /HPF (0.0-6.0) 03/06/20 Unknown Urine Bacteria (Auto) 1+ /HPF (Negative) 03/06/20 Unknown Urine Yeast (Budding) 3+ /HPF 03/06/20 Unknown Urine Creatinine 19.3 mg/dL (0.1-20.0) 03/08/20 11:41 Urine Sodium 71 mmol/L 03/08/20 11:41 Nasal Screen MRSA (PCR) Negative (Negative) 03/06/20 02:50 Coronavirus (PCR) Positive (Negative) A 03/05/20 Unknown Blood Type O POSITIVE 03/09/20 00:20 Antibody Screen Negative 03/09/20 00:20 Crossmatch See Detail 03/09/20 00:20 - Diagnostic Impressions Diagnostic Impressions: Echocardiogram 03/13/20 08:11 Transthoracic Echocardiogram Indication: SOB BP: 109/62 HR: 97 Conclusions *The study quality is technically difficult. Altered metal status. *Global left ventricular systolic function is normal. *The estimated ejection fraction is 60-65%. *The right ventricular chamber size and systolic function are within normal limits. *The aortic valve is not well visualized. *There is no evidence of aortic regurgitation. *There is no evidence of aortic stenosis. *There is no evidence of mitral regurgitation. *There is no evidence of tricuspid valve regurgitation. *The pulmonic valve is not well visualized. Findings Procedure Info: The study quality is technically difficult. Altered metal status. The study is technically limited due to patient body habitus. The study was technically limited due to the patient's inability to lay in the left lateral decubitus position. Left Ventricle: The left ventricular chamber size is normal. Global left ventricular systolic function is normal. The estimated ejection fraction is 60-65%. Left Atrium: The left atrial chamber size is normal. Right Ventricle: The right ventricular chamber size and systolic function are within normal limits. Right Atrium: The right atrium appears normal. Aortic Valve: The aortic valve is not well visualized. There is no evidence of aortic regurgitation. There is no evidence of aortic stenosis. Mitral Valve: The mitral valve leaflets appear normal. There is no evidence of mitral regurgitation. Tricuspid Valve: The tricuspid valve appears normal in structure and function. There is no evidence of tricuspid valve regurgitation. Pulmonic Valve: The pulmonic valve is not well visualized. Pericardium: There is no pericardial effusion. Aorta: The aorta appears normal. Measurements Chambers 2D Name Value Normal Range IVSd (2D) 0.75 cm (0.6 - 1.1) LVPWd (2D) 0.83 cm (0.6 - 1.1) LVIDd (2D) 3.68 cm (3.7 - 5.6) LVIDs (2D) 2.16 cm (2 - 3.8) LV FS (2D) 41.17 % - EF Teichholz (2D) 72.89 % - Ao root diameter (2D) 2.67 cm (2 - 3.7) Volumes/Mass Name Value Normal Range LV EDV SP 4CH (MOD) 77.78 ml - LV ESV SP 4CH (MOD) 22.18 ml - EF SP 4CH (MOD) 71.49 % - LV EDV SP 2CH (MOD) 80.81 ml - LV ESV SP 2CH (MOD) 24.58 ml - EF SP 2CH (MOD) 69.58 % - LV EDV BP 81.61 ml - LV ESV BP 25.39 ml - BP EF (MOD) 68.89 % - Aortic Valve Name Value Normal Range LVOT diameter 1.92 cm - Tricuspid Valve Name Value Normal Range IVC diameter 1.1 cm (1.2 - 2.3) Verma/IV: Voiding Method Indwelling Catheter IV Catheter Type [Right Triple Lumen Cath Internal Jugular] IV Catheter Type [Right Leg] Intra-osseous IV Catheter Type [Left Leg] Intra-osseous Active Medications - Current Medications Current Medications: Generic Name Dose Route Start Last Admin Trade Name Freq PRN Reason Stop Dose Admin Lipase/Protease/Amylase 1 each 03/08/20 09:00 03/13/20 09:32 Pancreazdelfin Card 10,500 Unit FEEDTUBE 1 each PRN PRN Administration For Clogged Feeding Tube Ascorbic Acid 500 mg 03/12/20 10:00 03/16/20 09:50 Vitamin C PO 500 mg DAILY SHAHLA Administration Citalopram Hydrobromide 20 mg 03/12/20 10:00 03/16/20 09:53 Celexa PO 20 mg QDAY SHAHLA Administration Dextrose 0 ml 03/05/20 12:09 03/13/20 07:03 D50w (25gm) Syringe IV 20 ml Q30MIN PRN Administration Hypoglycemia Protocol Furosemide 40 mg 03/16/20 10:00 03/16/20 09:50 Lasix IV 40 mg DAILY SHAHLA Administration Insulin Human Lispro 0 unit 03/07/20 01:00 03/17/20 00:37 Humalog SUB-Q Not Given Q6HR SHAHLA Protocol Multivitamins 5 ml 03/12/20 10:00 03/16/20 09:53 Centrum Liq PO 5 ml QDAY SHAHLA Administration Pravastatin Sodium 40 mg 03/12/20 22:00 03/16/20 22:11 Pravachol PO 40 mg QHS SHAHLA Administration Simple Syrup 15 ml 03/08/20 09:00 Simple Syrup FEEDTUBE PRN PRN Hypoglycemia Simple Syrup 30 ml 03/08/20 09:00 Simple Syrup FEEDTUBE PRN PRN Hypoglycemia Sodium Bicarbonate 325 mg 03/08/20 09:00 Sodium Bicarbonate FEEDTUBE PRN PRN For Clogged Feeding Tube Sodium Chloride 10 ml 03/05/20 22:00 03/16/20 22:12 Sodium Chloride Flush Syringe 10 Ml IV 10 ml BID SHAHLA Administration Sodium Chloride 10 ml 03/05/20 12:13 Sodium Chloride Flush Syringe 10 Ml IV PRN PRN LINE FLUSH Nutrition/Malnutrition Assess - Dietary Evaluation Nutrition/Malnutrition Findings: Nutrition Notes Start: 03/06/20 12:14 Freq: Status: Active Protocol: Document 03/11/20 11:14 SUSANA (Rec: 03/11/20 11:21 NHALL SRW- [email or web address]) Nutrition Notes Initial or Follow up Reassessment Current Diagnosis Acute Kidney Injury Other Pertinent Diagnosis COVID-19 (+), pneu, metabolic encephalopathy Current Diet TF - Nepro at 35ml/hr Labs/Tests Na 133 (likely 136-138) BG 291 BUN 52 Cr 3.1 Phos 2.2 Pertinent Medications reviewed Height 5 ft 3 in Weight 73 kg [place] Body Weight (kg) 52.27 BMI 28.5 Subjective/Other Information Spoke with RN via phone at 11: 07. Pt tolerating TF at goal rate. Per [employer] evaluation this am, pt unlikely to consume adequate PO to meet nutrient needs; recommends PEG placement. Burn Absent Trauma Absent #2 Nutrition Diagnosis Increased nutrient needs ( specify in comment below) Diagnosis Progress(for reassessment Continues documentation) #1 Nutrition Diagnosis Inadequate oral intake Diagnosis Progress(for reassessment Continues documentation) Is patient on ventilator? No Is Patient Ambulatory and/or Out of Bed No REE-([place]-St. Jeor-confined to bed) 7933.302 Calculation Used for Recommendations [place] Jeor Additional Notes Pro needs 0.8-1.5g/k-110g /day Fluid needs 1ml/kcal Nutrition Intervention Nutrition Support: Continue Nepro 1.8 at 35ml/hr Flush 150ml q4h Kcal 1,512 Protein (gm) 68 Fluid (mL) 611 Goal #1 TF tolerance Goal #2 TF to meet at least 75% energy and pro needs Follow-Up By: 03/18/20 Additional Comments F/U: stable TF, PEG placement, wt
[2020-03-17] MEDS: CITALOPRAM 20 MG TAB PO SCH (09:28)
[2020-03-17] MEDS: FUROSEMIDE 40 MG/4 ML INJ IV SCH (09:28)
[2020-03-17] MEDS: ASCORBIC ACID 500 MG TAB PO SCH (09:28)
[2020-03-17] MEDS: MULTIVITAMINS 5 ML ORAL LIQUID PO SCH (10:38)
--- NOTE | 2020-03-17 14:33 | Progress Note ---
Assessment and Plan 1. Acute kidney injury: Vasomotor RACH in the setting of DKA and septic shock. Renal US ordered. Also talked to the audiometric technician. Creatinine level was about the same. Monitor renal function. UOP appears to decreasing. IV fluids stopped due to edema. Unable to give Heparin / Lovenox due to anemia and thrombocytopenia. Renal prognosis is guarded. Avoid nephrotoxic agents. Meds dosage based on GFR. Monitor for FRANCHISE SALES REPRESENTATIVE needs. Labs from today pending (spoke to lab personnel). 2. FEN: Hyperchloremic metabolic acidosis, improved. On IV Lasix. Monitor lytes and volume status. 3. Acute hypoxic respiratory failure: S/p extubated. NC O2. Followed by Pulmonary. 4. COVID-19 infection. Follow cultures. 5. Sepsis with shock, POA: 2/2 COVID-19 infection. BP is better. 6. Anemia: S/p PRBC. 7. DM type 2, uncontrolled: Blood sugar fluctuates. 8. HTN: Monitor BP. 9. Metabolic encephalopathy, POA. - Subjective: Patient was seen and examined at the bedside. Limited exam due to PPE unavailable. - General Appearance: General appearance: appears stated age, not in distress, appears chronically ill Neurologic: lethargic, opens eyes, not following any command Ext: LE edema noted : Verma catheter Subjective Date of service: 03/17/20 Principal diagnosis: Septic shock acute respiratory failure Objective - Vital Signs Vital signs: Vital Signs - 12hr 03/17/20 03/17/20 03/17/20 05:06 12:01 12:09 Temperature 97.4 F L 97.0 F L Pulse Rate 85 99 H Respiratory 16 20 20 Rate Blood Pressure 125/71 112/53 O2 Sat by Pulse 100 96 100 Oximetry - Lab 03/15/20 10:37 03/16/20 05:37 Most recent lab results ABG pH 7.470 pH Units (7.350-7.450) H 03/06/20 08:42 ABG pCO2 21.5 mm Hg 03/06/20 08:42 ABG pO2 451.0 mm Hg (80.0-90.0) H 03/06/20 08:42 ABG HCO3 15.3 mmol/L (20.0-26.0) L 03/06/20 08:42 ABG O2 Saturation 99.6 % (95.0-99.0) H 03/06/20 08:42 Calcium 7.9 mg/dL (8.4-10.2) L 03/16/20 05:37 Phosphorus 2.70 mg/dL (2.5-4.5) D 03/13/20 13:30 Magnesium 1.80 mg/dL (1.7-2.3) 03/05/20 11:18 Urine Creatinine 19.3 mg/dL (0.1-20.0) 03/08/20 11:41 Urine Sodium 71 mmol/L 03/08/20 11:41 Medications & Allergies - Medications Allergies/Adverse Reactions: Allergies No Known Allergies Allergy (Verified 02/26/20 10:24) Home Medications: Home Medications Medication Instructions Recorded Confirmed Last Taken Type Citalopram [Celexa] 20 mg PO QDAY 01/25/20 03/06/20 Unknown History Pravastatin [Pravachol] 40 mg PO QHS 01/25/20 03/06/20 Unknown History Acetaminophen [Mapap] 650 mg PO BID PRN 02/26/20 03/06/20 Unknown History Ascorbic Acid [Vitamin C with Chetna 500 mg PO DAILY 02/26/20 03/06/20 Unknown History Hips] Glimepiride [Amaryl] 4 mg PO QAM 02/26/20 03/06/20 Unknown History Insulin Lispro [Humalog] 5 units SQ AC 02/26/20 03/06/20 Unknown History Multivit-Min/Ferrous Fumarate 15 mg PO DAILY 02/26/20 03/06/20 Unknown History [Multivitamin with Minerals Tab] Apixaban [Eliquis] 2.5 mg PO BID #30 tablet 03/01/20 03/06/20 Unknown Rx Insulin Glargine [Lantus VIAL] 15 units SUB-Q BID #100 units 03/01/20 03/06/20 Unknown Rx levoFLOXacin [Levaquin TAB] 500 mg PO QDAY #3 tablet 03/01/20 03/06/20 Unknown Rx Active Medications: Generic Name Dose Route Start Last Admin Trade Name Freq PRN Reason Stop Dose Admin Lipase/Protease/Amylase 1 each 03/08/20 09:00 03/13/20 09:32 Pancrejoanna Card 10,500 Unit FEEDTUBE 1 each PRN PRN Administration For Clogged Feeding Tube Ascorbic Acid 500 mg 03/12/20 10:00 03/17/20 09:28 Vitamin C PO 500 mg DAILY SHAHLA Administration Citalopram Hydrobromide 20 mg 03/12/20 10:00 03/17/20 09:28 Celexa PO 20 mg QDAY SHAHLA Administration Dextrose 0 ml 03/05/20 12:09 03/13/20 07:03 D50w (25gm) Syringe IV 20 ml Q30MIN PRN Administration Hypoglycemia Protocol Furosemide 40 mg 03/16/20 10:00 03/17/20 09:28 Lasix IV 40 mg DAILY SHAHLA Administration Insulin Human Lispro 0 unit 03/07/20 01:00 03/17/20 12:41 Humalog SUB-Q 6 unit Q6HR SHAHLA Administration Protocol Multivitamins 5 ml 03/12/20 10:00 03/17/20 10:38 Centrum Liq PO 5 ml QDAY SHAHLA Administration Pravastatin Sodium 40 mg 03/12/20 22:00 03/16/20 22:11 Pravachol PO 40 mg QHS SHAHLA Administration Simple Syrup 15 ml 03/08/20 09:00 Simple Syrup FEEDTUBE PRN PRN Hypoglycemia Simple Syrup 30 ml 03/08/20 09:00 Simple Syrup FEEDTUBE PRN PRN Hypoglycemia Sodium Bicarbonate 325 mg 03/08/20 09:00 Sodium Bicarbonate FEEDTUBE PRN PRN For Clogged Feeding Tube Sodium Chloride 10 ml 03/05/20 22:00 03/17/20 09:29 Sodium Chloride Flush Syringe 10 Ml IV 10 ml BID SHAHLA Administration Sodium Chloride 10 ml 03/05/20 12:13 Sodium Chloride Flush Syringe 10 Ml IV PRN PRN LINE FLUSH
[2020-03-17 16:36] LABS: Calcium 7.5 mg/dL (8.4-10.2)
[2020-03-17] MEDS: PRAVASTATIN 40 MG TAB PO SCH (21:27)
[2020-03-18 06:59] LABS: Calcium 7.6 mg/dL (8.4-10.2)
[2020-03-18] MEDS: CITALOPRAM 20 MG TAB PO SCH (09:00)
[2020-03-18] MEDS: FUROSEMIDE 40 MG/4 ML INJ IV SCH (09:01)
[2020-03-18] MEDS: ASCORBIC ACID 500 MG TAB PO SCH (09:01)
[2020-03-18] MEDS: MULTIVITAMINS 5 ML ORAL LIQUID PO SCH (09:03)
[2020-03-18] MEDS: INSULIN LISPRO 100 UNIT/ML VIAL 3 mL SUB-Q SCH ×4 (12:28→22:51)
--- NOTE | 2020-03-18 12:46 | Progress Note ---
Assessment and Plan 1. Acute kidney injury: Vasomotor RACH in the setting of DKA and septic shock. Renal US ordered. Also talked to the charge histotechnologist. Monitor renal function. Creatinine leveled off. Per RN UOP is improving. Unable to give Heparin / Lovenox due to anemia and thrombocytopenia. Renal prognosis is guarded. Avoid nephrotoxic agents. Meds dosage based on GFR. Monitor for BUSINESS ACCOUNT MANAGER needs. No acute indication for BUSINESS ACCOUNT MANAGER today. Patient likely need dialysis if the renal function is not improving. D/w sister regarding the possibility for dialysis and she wants to proceed with dialysis if needed. She was told the indications, benefits, risks and alternatives involved in hemodialysis. She voiced understanding and gave verbal consent. 2. FEN: Hyperchloremic metabolic acidosis, improved. On IV Lasix. Monitor lytes and volume status. 3. Acute hypoxic respiratory failure: S/p extubated. NC O2. Followed by Pulmonary. 4. COVID-19 infection. Follow cultures. 5. Sepsis with shock, POA: 2/2 COVID-19 infection. BP is better. 6. Anemia: S/p PRBC. 7. DM type 2, uncontrolled: Blood sugar fluctuates. 8. HTN: Monitor BP. 9. Metabolic encephalopathy, POA. - Subjective: Patient was seen and examined at the bedside. Limited exam due to PPE unavailable. - General Appearance: General appearance: appears stated age, not in distress, appears chronically ill Neurologic: lethargic, opens eyes, not following any command Ext: LE edema noted : Verma catheter Subjective Date of service: 03/18/20 Principal diagnosis: Septic shock acute respiratory failure Objective - Vital Signs Vital signs: Vital Signs - 12hr 03/18/20 03/18/20 04:56 11:11 Temperature 97.4 F L 98.1 F Pulse Rate 77 89 Respiratory 15 20 Rate Blood Pressure 119/59 111/60 O2 Sat by Pulse 98 98 Oximetry - Lab 03/15/20 10:37 03/18/20 05:15 Most recent lab results ABG pH 7.470 pH Units (7.350-7.450) H 03/06/20 08:42 ABG pCO2 21.5 mm Hg 03/06/20 08:42 ABG pO2 451.0 mm Hg (80.0-90.0) H 03/06/20 08:42 ABG HCO3 15.3 mmol/L (20.0-26.0) L 03/06/20 08:42 ABG O2 Saturation 99.6 % (95.0-99.0) H 03/06/20 08:42 Calcium 7.6 mg/dL (8.4-10.2) L 03/18/20 05:15 Phosphorus 2.70 mg/dL (2.5-4.5) D 03/13/20 13:30 Magnesium 1.80 mg/dL (1.7-2.3) 03/05/20 11:18 Urine Creatinine 19.3 mg/dL (0.1-20.0) 03/08/20 11:41 Urine Sodium 71 mmol/L 03/08/20 11:41 Medications & Allergies - Medications Allergies/Adverse Reactions: Allergies No Known Allergies Allergy (Verified 02/26/20 10:24) Home Medications: Home Medications Medication Instructions Recorded Confirmed Last Taken Type Citalopram [Celexa] 20 mg PO QDAY 01/25/20 03/06/20 Unknown History Pravastatin [Pravachol] 40 mg PO QHS 01/25/20 03/06/20 Unknown History Acetaminophen [Mapap] 650 mg PO BID PRN 02/26/20 03/06/20 Unknown History Ascorbic Acid [Vitamin C with Chetna 500 mg PO DAILY 02/26/20 03/06/20 Unknown History Hips] Glimepiride [Amaryl] 4 mg PO QAM 02/26/20 03/06/20 Unknown History Insulin Lispro [Humalog] 5 units SQ AC 02/26/20 03/06/20 Unknown History Multivit-Min/Ferrous Fumarate 15 mg PO DAILY 02/26/20 03/06/20 Unknown History [Multivitamin with Minerals Tab] Apixaban [Eliquis] 2.5 mg PO BID #30 tablet 03/01/20 03/06/20 Unknown Rx Insulin Glargine [Lantus VIAL] 15 units SUB-Q BID #100 units 03/01/20 03/06/20 Unknown Rx levoFLOXacin [Levaquin TAB] 500 mg PO QDAY #3 tablet 03/01/20 03/06/20 Unknown Rx Active Medications: Generic Name Dose Route Start Last Admin Trade Name Freq PRN Reason Stop Dose Admin Lipase/Protease/Amylase 1 each 03/08/20 09:00 03/13/20 09:[address] 10,500 Unit FEEDTUBE 1 each PRN PRN Administration For Clogged Feeding Tube Ascorbic Acid 500 mg 03/12/20 10:00 03/18/20 09:01 Vitamin C PO 500 mg DAILY SHAHLA Administration Citalopram Hydrobromide 20 mg 03/12/20 10:00 03/18/20 09:00 Celexa PO 20 mg QDAY SHAHLA Administration Dextrose 0 ml 03/05/20 12:09 03/13/20 07:03 D50w (25gm) Syringe IV 20 ml Q30MIN PRN Administration Hypoglycemia Protocol Furosemide 40 mg 03/16/20 10:00 03/18/20 09:01 Lasix IV 40 mg DAILY SHAHLA Administration Insulin Human Lispro 0 unit 03/07/20 01:00 03/18/20 12:28 Humalog SUB-Q 6 unit Q6HR SHAHLA Administration Protocol Multivitamins 5 ml 03/12/20 10:00 03/18/20 09:03 Centrum Liq PO 5 ml QDAY SHAHLA Administration Pravastatin Sodium 40 mg 03/12/20 22:00 03/17/20 21:27 Pravachol PO 40 mg QHS SHAHLA Administration Simple Syrup 15 ml 03/08/20 09:00 Simple Syrup FEEDTUBE PRN PRN Hypoglycemia Simple Syrup 30 ml 03/08/20 09:00 Simple Syrup FEEDTUBE PRN PRN Hypoglycemia Sodium Bicarbonate 325 mg 03/08/20 09:00 Sodium Bicarbonate FEEDTUBE PRN PRN For Clogged Feeding Tube Sodium Chloride 10 ml 03/05/20 22:00 03/18/20 09:05 Sodium Chloride Flush Syringe 10 Ml IV 10 ml BID SHAHLA Administration Sodium Chloride 10 ml 03/05/20 12:13 Sodium Chloride Flush Syringe 10 Ml IV PRN PRN LINE FLUSH
--- NOTE | 2020-03-18 12:49 | Progress Note ---
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 Pt is nonverbal and unable to provide history. Patient history taken from EMS staff, ED staff, and [facility] facility staff. As per staff the patient was found to be ill-appearing this morning, and was breathing fast. EMS was notified and upon arrival the patient was found to be in distress and subsequently transported to [facility] for further care and evaluation of the aforementioned symptoms. Patient seen and evaluated in the emergency d epartment. Lab and imaging studies reviewed. Patient found to have sepsis complicated by septic shock, acute hypoxemic respiratory failure, metabolic acidosis, metabolic encephalopathy, acute kidney injury, and hyponatremia. Patient initiated on sepsis protocol and admitted to ICU due to increased risk for decompensation. Critical care team consult placed in the emergency department. No further history is obtainable. Prior admission on 02/26/2020 reviewed. All medication listed at time of admission has been reconciled. Advanced care planning conducted in the emergency department. Intermittent Hx: 54-year-old with acute metabolic encephalopathy multifactorial DKA and septic shock and acute respiratory failure recently extubated but continues with worsening Renal function. Septic shock Patient with septic shock secondary to UTI and pneumonia. Patient has leukocytosis as well as fever. Currently on pressor support. Patient did improve somewhat was able to extubate today. Patient DKA also improved with treatment of underlying etiology of infection. Responding pressor support and aggressive IV volume replacement. Continue cefepime and vancomycin. Follow any ID recommend further ID recommendations. Acute hypoxemic respiratory failure Patient now extubated most likely was secondary to infection and uremia metabolic acidosis. Acute kidney injury (RACH) with acute tubular necrosis (ATN) Patient with acute kidney injury. Vasomotor RACH in the setting of DKA. DKA (diabetic ketoacidoses) Patient DKA has resolved now most likely underlying sepsis infection. Will place patient on 70/30 insulin 15 units a.m. 10 units p.m. Diabetes Mellitus: continue sliding scale coverage Sacral Pressure Ulcer: Continue wound care Dsyphgia ?secondary to Encephalopathy Hyponatremia syndrome Hyponatremia has resolved Toxic Metabolic encephalopathy Metabolic encephalopathy multifactorial underlying dementia exacerbated by sepsis and hypoxemia. Hyperchloremic metabolic acidosis, bicarb drip, monitor. Replete Phos. Monitor lytes and volume status. Anemia: S/p PRBC. COVID 19 Pneumonia Patient is positive for COVID-19 infection. DM type 2, uncontrolled: IV fluids changed to bicarbonate drip in sterile water. DVT prophylaxis 03/08/2020. Patient with hypoglycemia yesterday and insulin schedule discontinued. Dobbhoff tube placement for tube feedings. Speech therapy reports high aspiration risk. Pulmonary had discussion with family to consider AND. Overall prognosis is guarded to poor. Strongly suggest considering pall iative care/hospice with this patient while at the shelter. Patient with hemoglobin 6.5. Type and cross and transfuse 1 unit PRBCs. Check iron studies. 03/09/2020. Patient currently satting 98% on room air. Follow-up bilateral renal ultrasound for acute kidney injury. Nephrology following. COVID+ testing from 03/05/2020. However, patient with no hypoxia. Recheck inflammatory markers. Consider ID consultation. Pulmonary following. 03/10/2020. Patient with tube feeding in place and dietitian following with regards to feeding. Patient is s/p PRBCs of 1 unit. Hemoglobin improved to 8.7. Continue to follow CBC. Creatinine continues to worsen. Await renal ultrasound. Continue IV fluid hydration. 03/11/2020. Continue IV fluid hydration per nephrology. Creatinine appears to continue to worsen. Etiology likely secondary to acute kidney injury from vasomotor nephropathy. Still awaiting renal ultrasound. If unable to obtain,will consider CT of the abdomen/pelvis to rule out obstruction. Patient with COVID-19 infection but not hypoxic. Patient satting 98% on room air. Hemoglobin has stabilized at 8.6 s/p PRBCs. 03/12: Awaiting todays labs. IN Restriants, Discussed Peg placement with sister, Carlota Asif, @[phone]. Continue wound management. Continue current treatment. Renal function unfortunately now recovering nephrology following. 03/13: GI input noted, will hold anticoagluation while awaiting evaluation for LTAC just incase we may need to place PEG here if patients mental status is not improving. Also discussed with Nephrology, will start on lasix 40mg IV BID. Wound care following for sacral pressure ulcer 03/14: Revaluate Mental health, awaiting Labs to see impact of lasix on renal function, patient diuresis properly. Will change to Purewick. Discussed with GI, will give a few days as patients has never exhibited any dysphgia when mental status was normal. Hold Eliquis 03/15: Clinically improving now tolerating p.o. diet 03/16: Renal function appears to be stabilizing hoping that she has plateaued and will begin to show improvement. Continues with good urine output. We will continue to monitor. Continue fall precautions. 03/17: Patient seen and examined, awaiting labs today, continue diuresis. discussed with nursing staff. Anticipate if renal function is improving to begin discharge plans. Continue wound care. 03/18: Continue supportive care renal function plateauing. Anticipate discharge when renal function begins to trend downwards. This patient's creatinine baseline is 1.3 also being evaluated for LTAC placement History Interval history: Patient seen and examined today, continues to improve clinically tolerating p.o. intake Hospitalist Physical - Physical exam Narrative exam: VITAL SIGNS: Reviewed. GENERAL: The patient appears normally developed, generalized anasarca improving, confused vital signs as documented. HEAD: No signs of head trauma. EYES: Pupils are equal. Extraocular motions intact. EARS: Hearing grossly intact. MOUTH: Oropharynx is normal, poor dentition. NECK: No adenopathy, no JVD. CHEST: Chest with diminished breath sounds bilaterally. No wheezes, rales, or rhonchi. CARDIAC: Regular rate and rhythm. S1 and S2, without murmurs, gallops, or rubs. VASCULAR: Positive edema. Peripheral pulses normal and equal in all extremities. ABDOMEN: Soft, non tender and non distended. No rebound or guarding, and no masses palpated. Bowel Sounds normal. MUSCULOSKELETAL: Good range of motion of all major joints. Extremities without clubbing, cyanosis. With bilateral pitting edema +1 lower ext, improving NEUROLOGIC EXAM: awake, speech clear but still confused PSYCHIATRIC: Mood normal. SKIN: Excoriation in the perianal area secondary to loose stool. Detail exam as documented in skin assessment - Constitutional Vitals: Temp Pulse Resp BP Pulse Ox 98.1 F 89 20 111/60 98 03/18/20 11:11 03/18/20 11:11 03/18/20 11:11 03/18/20 11:11 03/18/20 11:11 General appearance: Present: mild distress Results - Labs CBC & Chem 7: 03/15/20 10:37 03/18/20 05:15 Labs: Laboratory Last Values WBC 5.4 K/mm3 (4.5-11.0) 03/15/20 10:37 RBC 2.32 M/mm3 (3.65-5.03) L 03/15/20 10:37 Hgb 7.2 gm/dl (10.1-14.3) L 03/15/20 10:37 Hct 21.2 % (30.3-42.9) L 03/15/20 10:37 MCV 91 fl (79-97) 03/15/20 10:37 MCH 31 pg (28-32) 03/15/20 10:37 MCHC 34 % (30-34) 03/15/20 10:37 RDW 15.2 % (13.2-15.2) 03/15/20 10:37 Plt Count 123 K/mm3 (140-440) L 03/15/20 10:37 Lymph % (Auto) 17.7 % (13.4-35.0) 03/10/20 Unknown [place] % (Auto) Banana Carrier 03/13/20 13:30 Eos % (Auto) 0.6 % (0.0-4.3) 03/10/20 Unknown Baso % (Auto) 0.8 % (0.0-1.8) 03/10/20 Unknown Lymph # 1.2 K/mm3 (1.2-5.4) 03/10/20 Unknown [place] # 0.7 K/mm3 (0.0-0.8) 03/10/20 Unknown Eos # 0.0 K/mm3 (0.0-0.4) 03/10/20 Unknown Baso # 0.1 K/mm3 (0.0-0.1) 03/10/20 Unknown Add Manual Diff Complete 03/13/20 13:30 Total Counted 100 03/13/20 13:30 Seg Neutrophils % 70.5 % (40.0-70.0) H 03/10/20 Unknown Seg Neuts % (Manual) 84.0 % (40.0-70.0) H 03/13/20 13:30 Band Neutrophils % 0 % 03/13/20 13:30 Lymphocytes % (Manual) 5.0 % (13.4-35.0) L 03/13/20 13:30 Reactive Lymphs % (Man) 0 % 03/13/20 13:30 Monocytes % (Manual) 11.0 % (0.0-7.3) H 03/13/20 13:30 Eosinophils % (Manual) 0 % (0.0-4.3) 03/13/20 13:30 Basophils % (Manual) 0 % (0.0-1.8) 03/13/20 13:30 Metamyelocytes % 0 % 03/13/20 13:30 Myelocytes % 0 % 03/13/20 13:30 Promyelocytes % 0 % 03/13/20 13:30 Blast Cells % 0 % 03/13/20 13:30 Nucleated RBC % Not Reportable 03/13/20 13:30 Seg Neutrophils # 4.8 K/mm3 (1.8-7.7) 03/10/20 Unknown Seg Neutrophils # Man 5.9 K/mm3 (1.8-7.7) 03/13/20 13:30 Band Neutrophils # 0.0 K/mm3 03/13/20 13:30 Lymphocytes # (Manual) 0.4 K/mm3 (1.2-5.4) L 03/13/20 13:30 Abs React Lymphs (Man) 0.0 K/mm3 03/13/20 13:30 Monocytes # (Manual) 0.8 K/mm3 (0.0-0.8) 03/13/20 13:30 Eosinophils # (Manual) 0.0 K/mm3 (0.0-0.4) 03/13/20 13:30 Basophils # (Manual) 0.0 K/mm3 (0.0-0.1) 03/13/20 13:30 Metamyelocytes # 0.0 K/mm3 03/13/20 13:30 Myelocytes # 0.0 K/mm3 03/13/20 13:30 Promyelocytes # 0.0 K/mm3 03/13/20 13:30 Blast Cells # 0.0 K/mm3 03/13/20 13:30 WBC Morphology Not Reportable 03/13/20 13:30 Hypersegmented Neuts Not Reportable 03/13/20 13:30 Hyposegmented Neuts Not Reportable 03/13/20 13:30 Hypogranular Neuts Not Reportable 03/13/20 13:30 Smudge Cells Not Reportable 03/13/20 13:30 Toxic Granulation Not Reportable 03/13/20 13:30 Toxic Vacuolation Not Reportable 03/13/20 13:30 Dohle Bodies Not Reportable 03/13/20 13:30 Pelger-Huet Anomaly Not Reportable 03/13/20 13:30 Jamia Rods Not Reportable 03/13/20 13:30 Platelet Estimate Not Reportable 03/13/20 13:30 Clumped Platelets Not Reportable 03/13/20 13:30 Plt Clumps, EDTA Not Reportable 03/13/20 13:30 Large Platelets Not Reportable 03/13/20 13:30 Giant Platelets Not Reportable 03/13/20 13:30 Platelet Satelliting Not Reportable 03/13/20 13:30 Plt Morphology Comment Not Reportable 03/13/20 13:30 RBC Morphology Normal 03/13/20 13:30 Dimorphic RBCs Not Reportable 03/13/20 13:30 Polychromasia Not Reportable 03/13/20 13:30 Hypochromasia Not Reportable 03/13/20 13:30 Poikilocytosis Not Reportable 03/13/20 13:30 Anisocytosis Not Reportable 03/13/20 13:30 Microcytosis Not Reportable 03/13/20 13:30 Macrocytosis Not Reportable 03/13/20 13:30 Spherocytes Not Reportable 03/13/20 13:30 Pappenheimer Bodies Not Reportable 03/13/20 13:30 Sickle Cells Not Reportable 03/13/20 13:30 Target Cells Not Reportable 03/13/20 13:30 Tear Drop Cells Not Reportable 03/13/20 13:30 Ovalocytes Not Reportable 03/13/20 13:30 Helmet Cells Not Reportable 03/13/20 13:30 Galvan-Westbrook Bodies Not Reportable 03/13/20 13:30 Marshall Rings Not Reportable 03/13/20 13:30 Luis Cells Not Reportable 03/13/20 13:30 Bite Cells Not Reportable 03/13/20 13:30 Crenated Cell Not Reportable 03/13/20 13:30 Elliptocytes Not Reportable 03/13/20 13:30 Acanthocytes (Spur) Not Reportable 03/13/20 13:30 Rouleaux Not Reportable 03/13/20 13:30 Hemoglobin C Crystals Not Reportable 03/13/20 13:30 Schistocytes Not Reportable 03/13/20 13:30 Malaria parasites Not Reportable 03/13/20 13:30 Felice Bodies Not Reportable 03/13/20 13:30 Hem Pathologist Commnt No 03/13/20 13:30 D-Dimer 544.72 ng/mlDDU (0-234) H 03/09/20 10:01 ABG pH 7.470 pH Units (7.350-7.450) H 03/06/20 08:42 ABG pCO2 21.5 mm Hg 03/06/20 08:42 ABG pO2 451.0 mm Hg (80.0-90.0) H 03/06/20 08:42 ABG HCO3 15.3 mmol/L (20.0-26.0) L 03/06/20 08:42 ABG O2 Saturation 99.6 % (95.0-99.0) H 03/06/20 08:42 ABG O2 Content 12.0 (0.0-44) 03/06/20 08:42 ABG Base Excess -7.3 mmol/L (-2.0-3.0) L 03/06/20 08:42 ABG Hemoglobin 7.7 gm/dl (12.0-16.0) L 03/06/20 08:42 ABG Carboxyhemoglobin 0.9 % (0.0-5.0) 03/06/20 08:42 ABG Methemoglobin 0.5 % (0.0-1.5) 03/06/20 08:42 Oxyhemoglobin 98.2 % (95.0-99.0) 03/06/20 08:42 FiO2 100 % 03/06/20 08:42 Sodium 135 mmol/L (137-145) L 03/18/20 05:15 Potassium 3.8 mmol/L (3.6-5.0) 03/18/20 05:15 Chloride 97.3 mmol/L (98-107) L 03/18/20 05:15 Carbon Dioxide 24 mmol/L (22-30) 03/18/20 05:15 Anion Gap 18 mmol/L 03/18/20 05:15 BUN 75 mg/dL (7-17) H 03/18/20 05:15 Creatinine 4.1 mg/dL (0.6-1.2) H 03/18/20 05:15 Estimated GFR 11 ml/min 03/18/20 05:15 BUN/Creatinine Ratio 18 % 03/18/20 05:15 Glucose 80 mg/dL (65-100) 03/18/20 05:15 POC Glucose 284 (70-105) H 03/18/20 12:31 Lactic Acid 4.30 mmol/L (0.7-2.0) H* 03/06/20 14:35 Calcium 7.6 mg/dL (8.4-10.2) L 03/18/20 05:15 Phosphorus 2.70 mg/dL (2.5-4.5) D 03/13/20 13:30 Magnesium 1.80 mg/dL (1.7-2.3) 03/05/20 11:18 Iron 106 ug/dL (37-170) 03/08/20 12:00 TIBC 101 mcg/dL (250-450) L 03/08/20 12:00 Ferritin 835.3 ng/mL (10.0-200.0) H 03/09/20 10:01 Total Bilirubin < 0.20 mg/dL (0.1-1.2) 03/13/20 13:30 AST 22 units/L (5-40) 03/13/20 13:30 ALT 12 units/L (7-56) 03/13/20 13:30 Alkaline Phosphatase 248 units/L (35-129) H 03/13/20 13:30 Lactate Dehydrogenase 460 units/L (91-180) H 03/09/20 10:01 Total Creatine Kinase 20 units/L (30-135) L 03/17/20 15:41 C-Reactive Protein 3.50 mg/dL (0.00-1.30) H 03/09/20 10:01 Total Protein 4.4 g/dL (6.3-8.2) L 03/13/20 13:30 Albumin 1.6 g/dL (3.9-5) L 03/13/20 13:30 Albumin/Globulin Ratio 0.6 % 03/13/20 13:30 Vitamin B12 1453 pg/mL (211-911) H 03/09/20 00:20 Folate 8.06 ng/mL (7.3-26.0) 03/09/20 00:20 Procalcitonin 10.61 ng/mL (<0.15) 03/09/20 Unknown Urine Color Yellow (Yellow) 03/06/20 Unknown Urine Turbidity Cloudy (Clear) 03/06/20 Unknown Urine pH 5.0 (5.0-7.0) 03/06/20 Unknown Ur Specific [place] 1.009 (1.003-1.030) 03/06/20 Unknown Urine Protein <15 mg/dl mg/dL (Negative) 03/06/20 Unknown Urine Glucose (UA) >=500 mg/dL (Negative) 03/06/20 Unknown Urine Ketones 20 mg/dL (Negative) 03/06/20 Unknown Urine Blood Sm (Negative) 03/06/20 Unknown Urine Nitrite Neg (Negative) 03/06/20 Unknown Urine Bilirubin Neg (Negative) 03/06/20 Unknown Urine Urobilinogen < 2.0 mg/dL (<2.0) 03/06/20 Unknown Ur Leukocyte Esterase Neg (Negative) 03/06/20 Unknown Urine WBC (Auto) 2.0 /HPF (0.0-6.0) 03/06/20 Unknown Urine RBC (Auto) > 182.0 /HPF (0.0-6.0) 03/06/20 Unknown Urine Bacteria (Auto) 1+ /HPF (Negative) 03/06/20 Unknown Urine Yeast (Budding) 3+ /HPF 03/06/20 Unknown Urine Creatinine 19.3 mg/dL (0.1-20.0) 03/08/20 11:41 Urine Sodium 71 mmol/L 03/08/20 11:41 Nasal Screen MRSA (PCR) Negative (Negative) 03/06/20 02:50 Coronavirus (PCR) Positive (Negative) A 03/05/20 Unknown Blood Type O POSITIVE 03/09/20 00:20 Antibody Screen Negative 03/09/20 00:20 Crossmatch See Detail 03/09/20 00:20 - Diagnostic Impressions Diagnostic Impressions: Echocardiogram 03/13/20 08:11 Transthoracic Echocardiogram Indication: SOB BP: 109/62 HR: 97 Conclusions *The study quality is technically difficult. Altered metal status. *Global left ventricular systolic function is normal. *The estimated ejection fraction is 60-65%. *The right ventricular chamber size and systolic function are within normal limits. *The aortic valve is not well visualized. *There is no evidence of aortic regurgitation. *There is no evidence of aortic stenosis. *There is no evidence of mitral regurgitation. *There is no evidence of tricuspid valve regurgitation. *The pulmonic valve is not well visualized. Findings Procedure Info: The study quality is technically difficult. Altered metal status. The study is technically limited due to patient body habitus. The study was technically limited due to the patient's inability to lay in the left lateral decubitus position. Left Ventricle: The left ventricular chamber size is normal. Global left ventricular systolic function is normal. The estimated ejection fraction is 60-65%. Left Atrium: The left atrial chamber size is normal. Right Ventricle: The right ventricular chamber size and systolic function are within normal limits. Right Atrium: The right atrium appears normal. Aortic Valve: The aortic valve is not well visualized. There is no evidence of aortic regurgitation. There is no evidence of aortic stenosis. Mitral Valve: The mitral valve leaflets appear normal. There is no evidence of mitral regurgitation. Tricuspid Valve: The tricuspid valve appears normal in structure and function. There is no evidence of tricuspid valve regurgitation. Pulmonic Valve: The pulmonic valve is not well visualized. Pericardium: There is no pericardial effusion. Aorta: The aorta appears normal. Measurements Chambers 2D Name Value Normal Range IVSd (2D) 0.75 cm (0.6 - 1.1) LVPWd (2D) 0.83 cm (0.6 - 1.1) LVIDd (2D) 3.68 cm (3.7 - 5.6) LVIDs (2D) 2.16 cm (2 - 3.8) LV FS (2D) 41.17 % - EF Teichholz (2D) 72.89 % - Ao root diameter (2D) 2.67 cm (2 - 3.7) Volumes/Mass Name Value Normal Range LV EDV SP 4CH (MOD) 77.78 ml - LV ESV SP 4CH (MOD) 22.18 ml - EF SP 4CH (MOD) 71.49 % - LV EDV SP 2CH (MOD) 80.81 ml - LV ESV SP 2CH (MOD) 24.58 ml - EF SP 2CH (MOD) 69.58 % - LV EDV BP 81.61 ml - LV ESV BP 25.39 ml - BP EF (MOD) 68.89 % - Aortic Valve Name Value Normal Range LVOT diameter 1.92 cm - Tricuspid Valve Name Value Normal Range IVC diameter 1.1 cm (1.2 - 2.3) Verma/IV: Voiding Method Indwelling Catheter IV Catheter Type [Right Triple Lumen Cath Internal Jugular] IV Catheter Type [Right Leg] Intra-osseous IV Catheter Type [Left Leg] Intra-osseous Active Medications - Current Medications Current Medications: Generic Name Dose Route Start Last Admin Trade Name Freq PRN Reason Stop Dose Admin Lipase/Protease/Amylase 1 each 03/08/20 09:00 03/13/20 09:[address] 10,500 Unit FEEDTUBE 1 each PRN PRN Administration For Clogged Feeding Tube Ascorbic Acid 500 mg 03/12/20 10:00 03/18/20 09:01 Vitamin C PO 500 mg DAILY SHAHLA Administration Citalopram Hydrobromide 20 mg 03/12/20 10:00 03/18/20 09:00 Celexa PO 20 mg QDAY SHAHLA Administration Dextrose 0 ml 03/05/20 12:09 03/13/20 07:03 D50w (25gm) Syringe IV 20 ml Q30MIN PRN Administration Hypoglycemia Protocol Furosemide 40 mg 03/16/20 10:00 03/18/20 09:01 Lasix IV 40 mg DAILY SHAHLA Administration Insulin Human Lispro 0 unit 03/07/20 01:00 03/18/20 12:28 Humalog SUB-Q 6 unit Q6HR SHAHLA Administration Protocol Multivitamins 5 ml 03/12/20 10:00 03/18/20 09:03 Centrum Liq PO 5 ml QDAY SHAHLA Administration Pravastatin Sodium 40 mg 03/12/20 22:00 03/17/20 21:27 Pravachol PO 40 mg QHS SHAHLA Administration Simple Syrup 15 ml 03/08/20 09:00 Simple Syrup FEEDTUBE PRN PRN Hypoglycemia Simple Syrup 30 ml 03/08/20 09:00 Simple Syrup FEEDTUBE PRN PRN Hypoglycemia Sodium Bicarbonate 325 mg 03/08/20 09:00 Sodium Bicarbonate FEEDTUBE PRN PRN For Clogged Feeding Tube Sodium Chloride 10 ml 03/05/20 22:00 03/18/20 09:05 Sodium Chloride Flush Syringe 10 Ml IV 10 ml BID SHAHLA Administration Sodium Chloride 10 ml 03/05/20 12:13 Sodium Chloride Flush Syringe 10 Ml IV PRN PRN LINE FLUSH Nutrition/Malnutrition Assess - Dietary Evaluation Nutrition/Malnutrition Findings: Nutrition Notes Start: 03/06/20 12:14 Freq: Status: Active Protocol: Document 03/11/20 11:14 SUSANA (Rec: 03/11/20 11:21 SUSANA [email or web address] [email or web address]) Nutrition Notes Initial or Follow up Reassessment Current Diagnosis Acute Kidney Injury Other Pertinent Diagnosis COVID-19 (+), pneu, metabolic encephalopathy Current Diet TF - Nepro at 35ml/hr Labs/Tests Na 133 (likely 136-138) BG 291 BUN 52 Cr 3.1 Phos 2.2 Pertinent Medications reviewed Height 5 ft 3 in Weight 73 kg [place] Body Weight (kg) 52.27 BMI 28.5 Subjective/Other Information Spoke with RN via phone at 11: 07. Pt tolerating TF at goal rate. Per EYELET MACHINE OPERATOR evaluation this am, pt unlikely to consume adequate PO to meet nutrient needs; recommends PEG placement. Burn Absent Trauma Absent #2 Nutrition Diagnosis Increased nutrient needs ( specify in comment below) Diagnosis Progress(for reassessment Continues documentation) #1 Nutrition Diagnosis Inadequate oral intake Diagnosis Progress(for reassessment Continues documentation) Is patient on ventilator? No Is Patient Ambulatory and/or Out of Bed No REE-([facility]-confined to bed) [phone] Calculation Used for Recommendations [facility] Additional Notes Pro needs 0.8-1.5g/k-110g /day Fluid needs 1ml/kcal Nutrition Intervention Nutrition Support: Continue Nepro 1.8 at 35ml/hr Flush 150ml q4h Kcal 1,512 Protein (gm) 68 Fluid (mL) 611 Goal #1 TF tolerance Goal #2 TF to meet at least 75% energy and pro needs Follow-Up By: 03/18/20 Additional Comments F/U: stable TF, PEG placement, wt
[2020-03-19] MEDS: PRAVASTATIN 40 MG TAB PO SCH (00:04)
[2020-03-19] MEDS: INSULIN LISPRO 100 UNIT/ML VIAL 3 mL SUB-Q SCH ×4 (05:22→13:24)
[2020-03-19] MEDS: DEXTROSE 50% IN WATER (25GM) 50 ML SYRINGE IV PRN (06:28)
[2020-03-19] MEDS: FUROSEMIDE 40 MG/4 ML INJ IV SCH (09:10)
[2020-03-19] MEDS: ASCORBIC ACID 500 MG TAB PO SCH (09:11)
[2020-03-19] MEDS: CITALOPRAM 20 MG TAB PO SCH (09:11)
[2020-03-19] MEDS: MULTIVITAMINS 5 ML ORAL LIQUID PO SCH (09:11)
--- NOTE | 2020-03-19 09:20 | Discharge Summary ---
Providers - Providers Date of Admission: 03/05/20 12:49 Attending physician: ELEONORA MEADOWS MD 03/06/20 07:56 Consult to Wound/ET Nurse [CONS] Routine Reason For Exam: wound eval (Sacral) 03/07/20 13:02 Consult to Physician [CONS] Routine Comment: called office/ julio césar Consulting Provider: ABBEY JULIO Physician Instructions: Reason For Exam: ARF 03/08/20 07:49 Consult to Dietitian/Nutrition [CONS] Routine Physician Instructions: Reason For Exam: Reason for Consult: Write/Manage Tube Feeding 03/09/20 09:17 Speech Therapy Evaluation and Treat [CONS] Routine Reason For Exam: pt getting better after extubation. 03/09/20 20:25 Speech Therapy Evaluation and Treat [CONS] Routine Reason For Exam: pt need swallow evalv again. 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 Pt is nonverbal and unable to provide history. Patient history taken from EMS staff, ED staff, and fpc facility staff. As per staff the patient was found to be ill-appearing this morning, and was breathing fast. EMS was notified and upon arrival the patient was found to be in distress and subsequently transported to [facility] for further care and evaluation of the aforementioned symptoms. Patient seen and evaluated in the emergency department. Lab and imaging studies reviewed. Patient found to have sepsis complicated by septic shock, acute hypoxemic respiratory failure, metabolic acidosis, metabolic encephalopathy, acute kidney injury, and hyponatremia. Patient initiated on sepsis protocol and admitted to ICU due to increased risk for decompensation. Critical care team consult placed in the emergency department. No further history is obtainable. Prior admission on 02/26/2020 reviewed. All medication listed at time of admission has been reconciled. Advanced care planning conducted in the emergency department. Intermittent Hx: 54-year-old with acute metabolic encephalopathy multifactorial DKA and septic shock and acute respiratory failure recently extubated but continues with worsening Renal function. Septic shock Patient with septic shock secondary to UTI and pneumonia. Patient has leukocytosis as well as fever. Currently on pressor support. Patient did improve somewhat was able to extubate today. Patient DKA also improved with treatment of underlying etiology of infection. Responding pressor support and aggressive IV volume replacement. Continue cefepime and vancomycin. Follow any ID recommend further ID recommendations. Acute hypoxemic respiratory failure Patient now extubated most likely was secondary to infection and uremia metabolic acidosis. Acute kidney injury (RACH) with acute tubular necrosis (ATN) Patient with acute kidney injury. Vasomotor RACH in the setting of DKA. DKA (diabetic ketoacidoses) Patient DKA has resolved now most likely underlying sepsis infection. Will place patient on 70/30 insulin 15 units a.m. 10 units p.m. Diabetes Mellitus: continue sliding scale coverage Sacral Pressure Ulcer: Continue wound care Dsyphgia ?secondary to Encephalopathy Hyponatremia syndrome Hyponatremia has resolved Toxic Metabolic encephalopathy Metabolic encephalopathy multifactorial underlying dementia exacerbated by sepsis and hypoxemia. Hyperchloremic metabolic acidosis, bicarb drip, monitor. Replete Phos. Monitor lytes and volume status. Anemia: S/p PRBC. COVID 19 Pneumonia Patient is positive for COVID-19 infection. DM type 2, uncontrolled: IV fluids changed to bicarbonate drip in sterile water. 03/08/2020. Patient with hypoglycemia yesterday and insulin schedule discontinued. Dobbhoff tube placement for tube feedings. Speech therapy reports high aspiration risk. Pulmonary had discussion with family to consider AND. Overall prognosis is guarded to poor. Strongly suggest considering palliative care/hospice with this patient while at the long-term. Patient with hemoglobin 6.5. Type and cross and transfuse 1 unit PRBCs. Check iron studies. 03/09/2020. Patient currently satting 98% on room air. Follow-up bilateral renal ultrasound for acute kidney injury. Nephrology following. COVID+ testing from 03/05/2020. However, patient with no hypoxia. Recheck inflammatory markers. Consider ID consultation. Pulmonary following. 03/10/2020. Patient with tube feeding in place and dietitian following with regards to feeding. Patient is s/p PRBCs of 1 unit. Hemoglobin improved to 8.7. Continue to follow CBC. Creatinine continues to worsen. Await renal ultrasound. Continue IV fluid hydration. 03/11/2020. Continue IV fluid hydration per nephrology. Creatinine appears to continue to worsen. Etiology likely secondary to acute kidney injury from vasomotor nephropathy. Still awaiting renal ultrasound. If unable to obtain,will consider CT of the abdomen/pelvis to rule out obstruction. Patient with COVID-19 infection but not hypoxic. Patient satting 98% on room air. Hemoglobin has stabilized at 8.6 s/p PRBCs. 03/12: Awaiting todays labs. IN Restriants, Discussed Peg placement with sister, Carlota Asif, @[phone]. Continue wound management. Continue current treatment. Renal function unfortunately now recovering nephrology following. 03/13: GI input noted, will hold anticoagluation while awaiting evaluation for LTAC just incase we may need to place PEG here if patients mental status is not improving. Also discussed with Nephrology, will start on lasix 40mg IV BID. Wound care following for sacral pressure ulcer 03/14: Revaluate Mental health, awaiting Labs to see impact of lasix on renal function, patient diuresis properly. Will change to Purewick. Discussed with GI, will give a few days as patients has never exhibited any dysphgia when mental status was normal. Hold Eliquis 03/15: Clinically improving now tolerating p.o. diet 03/16: Renal function appears to be stabilizing hoping that she has plateaued and will begin to show improvement. Continues with good urine output. We will continue to monitor. Continue fall precautions. 03/17: Patient seen and examined, awaiting labs today, continue diuresis. discussed with nursing staff. Anticipate if renal function is improving to begin discharge plans. Continue wound care. 03/18: Continue supportive care renal function plateauing. Anticipate discharge when renal function begins to trend downwards. This patient's creatinine baseline is 1.3 also being evaluated for LTAC placement 03/19: Patient received approval for LTAC placement today which is important to continue monitoring renal function which currently is at 4 as of yesterday and baseline creatinine is 1.3. Patient also needs aggressive physical therapy, off note she is a long-term resident, sure what her baseline ambulatory status is as request from the long-term was unable to provide this information. She will require nephrology consultation she is beginning to tolerate diet but often needs assistance. She has completed her antibiotics treatment. And has a sacral pressure ulcer that needs careful monitoring to prevent progression. She was also treated for COVID-19. She did not receive Remdesivir due to renal function but received steroids. She was on anticoagulation secondary to COVID- 19 considering good maintaining of her oxygen saturation will only return her to DVT prophylaxis. She received 1 unit packed red blood cell during hospitalization. Earlier in the hospitalization was treated for septic shock. Per her sister prior to hospitalization in December patient was ambulatory with a walker. Disposition: [id number] MEDICARE CERT LTCH Time spent for discharge: 35 MINS Core Measure Documentation - Palliative Care Palliative Care/ Comfort Measures: Not Applicable - Core Measures Any of the following diagnoses?: none Exam - Physical Exam Narrative exam: VITAL SIGNS: Reviewed. GENERAL: The patient appears normally developed, generalized anasarca improving, confused vital signs as documented. HEAD: No signs of head trauma. EYES: Pupils are equal. Extraocular motions intact. EARS: Hearing grossly intact. MOUTH: Oropharynx is normal, poor dentition. NECK: No adenopathy, no JVD. CHEST: Chest with diminished breath sounds bilaterally. No wheezes, rales, or rhonchi. CARDIAC: Regular rate and rhythm. S1 and S2, without murmurs, gallops, or rubs. VASCULAR: Positive edema. Peripheral pulses normal and equal in all extremities. ABDOMEN: Soft, non tender and non distended. No rebound or guarding, and no masses palpated. Bowel Sounds normal. MUSCULOSKELETAL: Good range of motion of all major joints. Extremities without clubbing, cyanosis. With bilateral pitting edema +1 lower ext, improving NEUROLOGIC EXAM: awake, speech clear but still confused PSYCHIATRIC: Mood normal. SKIN: Excoriation in the perianal area secondary to loose stool. Detail exam as documented in skin assessment - Constitutional Vitals: Temp Pulse Resp BP Pulse Ox 97.9 F 85 16 120/61 98 03/18/20 22:10 03/18/20 22:10 03/18/20 22:10 03/18/20 22:10 03/18/20 22:10 Plan Activity: advance as tolerated, fall precautions Diet: low fat Special Instructions: record daily weights, record daily BP diary, record blood sugar diary Additional Instructions: continue IV lasix,. Needs nephrology consult. Wound care management. Agreesive physical therapy
--- NOTE | 2020-03-19 09:35 | Progress Note ---
Assessment and Plan 1. Acute kidney injury: Vasomotor RACH in the setting of DKA and septic shock. Renal US ordered. Also talked to the certified surgical technician. Monitor renal function. Creatinine leveled off. Per RN UOP is improving. Unable to give Heparin / Lovenox due to anemia and thrombocytopenia. Renal prognosis is guarded. Avoid nephrotoxic agents. Meds dosage based on GFR. Monitor for SATE[employer]LE[employer]ST[employer]ER needs. Patient likely need dialysis if the renal function is not improving. D/w sister (03/18) regarding the possibility for dialysis and she wants to proceed with dialysis if needed. She was told the indications, benefits, risks and alternati ves involved in hemodialysis. She voiced understanding and gave verbal consent. No labs from today. 2. FEN: Hyperchloremic metabolic acidosis, improved. On IV Lasix. Monitor lytes and volume status. 3. Acute hypoxic respiratory failure: S/p extubated. NC O2. Followed by Pulmonary. 4. COVID-19 infection. Follow cultures. 5. Sepsis with shock, POA: 2/ COVID-19 infection. BP is better. 6. Anemia: S/p PRBC. 7. DM type 2, uncontrolled: Blood sugar fluctuates. 8. HTN: Monitor BP. 9. Metabolic encephalopathy, POA. Patient is being discharged to LTAC today. - Subjective: Patient was seen and examined at the bedside. Limited exam, PPE unavailable. - General Appearance: General appearance: appears stated age, not in distress, appears chronically ill Neurologic: lethargic, opens eyes, not following any command Ext: LE edema noted Subjective Date of service: 03/19/20 Principal diagnosis: Septic shock acute respiratory failure Objective - Vital Signs Vital signs: Vital Signs - 12hr 03/18/20 22:10 Temperature 97.9 F Pulse Rate 85 Respiratory 16 Rate Blood Pressure 120/61 O2 Sat by Pulse 98 Oximetry - Lab 03/15/20 10:37 03/18/20 05:15 Most recent lab results ABG pH 7.470 pH Units (7.350-7.450) H 03/06/20 08:42 ABG pCO2 21.5 mm Hg 03/06/20 08:42 ABG pO2 451.0 mm Hg (80.0-90.0) H 03/06/20 08:42 ABG HCO3 15.3 mmol/L (20.0-26.0) L 03/06/20 08:42 ABG O2 Saturation 99.6 % (95.0-99.0) H 03/06/20 08:42 Calcium 7.6 mg/dL (8.4-10.2) L 03/18/20 05:15 Phosphorus 2.70 mg/dL (2.5-4.5) D 03/13/20 13:30 Magnesium 1.80 mg/dL (1.7-2.3) 03/05/20 11:18 Urine Creatinine 19.3 mg/dL (0.1-20.0) 03/08/20 11:41 Urine Sodium 71 mmol/L 03/08/20 11:41 Medications & Allergies - Medications Allergies/Adverse Reactions: Allergies No Known Allergies Allergy (Verified 02/26/20 10:24) Home Medications: Home Medications Medication Instructions Recorded Confirmed Last Taken Type Citalopram [Celexa] 20 mg PO QDAY 01/25/20 03/06/20 Unknown History Pravastatin [Pravachol] 40 mg PO QHS 01/25/20 03/06/20 Unknown History Acetaminophen [Mapap] 650 mg PO BID PRN 02/26/20 03/06/20 Unknown History Ascorbic Acid [Vitamin C with Chetna 500 mg PO DAILY 02/26/20 03/06/20 Unknown History Hips] Glimepiride [Amaryl] 4 mg PO QAM 02/26/20 03/06/20 Unknown History Insulin Lispro [Humalog] 5 units SQ AC 02/26/20 03/06/20 Unknown History Multivit-Min/Ferrous Fumarate 15 mg PO DAILY 02/26/20 03/06/20 Unknown History [Multivitamin with Minerals Tab] Apixaban [Eliquis] 2.5 mg PO BID #30 tablet 03/01/20 03/06/20 Unknown Rx Active Medications: Generic Name Dose Route Start Last Admin Trade Name Freq PRN Reason Stop Dose Admin Lipase/Protease/Amylase 1 each 03/08/20 09:00 03/13/20 09:32 Pancrejoanna Card 10,500 Unit FEEDTUBE 1 each PRN PRN Administration For Clogged Feeding Tube Ascorbic Acid 500 mg 03/12/20 10:00 03/19/20 09:11 Vitamin C PO 500 mg DAILY SHAHLA Administration Citalopram Hydrobromide 20 mg 03/12/20 10:00 03/19/20 09:11 Celexa PO 20 mg QDAY SHAHLA Administration Dextrose 0 ml 03/05/20 12:09 03/19/20 06:28 D50w (25gm) Syringe IV 50 ml Q30MIN PRN Administration Hypoglycemia Protocol Furosemide 40 mg 03/16/20 10:00 03/19/20 09:10 Lasix IV 40 mg DAILY SHAHLA Administration Insulin Human Lispro 0 unit 03/07/20 01:00 03/19/20 09:14 Humalog SUB-Q Not Given Q6HR [facility] Protocol Multivitamins 5 ml 03/12/20 10:00 03/19/20 09:11 Centrum Liq PO 5 ml QDAY SHAHLA Administration Pravastatin Sodium 40 mg 03/12/20 22:00 03/19/20 00:04 Pravachol PO 40 mg QHS SHAHLA Administration Simple Syrup 15 ml 03/08/20 09:00 Simple Syrup FEEDTUBE PRN PRN Hypoglycemia Simple Syrup 30 ml 03/08/20 09:00 Simple Syrup FEEDTUBE PRN PRN Hypoglycemia Sodium Bicarbonate 325 mg 03/08/20 09:00 Sodium Bicarbonate FEEDTUBE PRN PRN For Clogged Feeding Tube Sodium Chloride 10 ml 03/05/20 22:00 03/19/20 09:14 Sodium Chloride Flush Syringe 10 Ml IV 10 ml BID SHAHLA Administration Sodium Chloride 10 ml 03/05/20 12:13 Sodium Chloride Flush Syringe 10 Ml IV PRN PRN LINE FLUSH
[2020-03-19 16:37] LABS: Hemoglobin 6.8 gm/dl (10.1-14.3); Mean Corpuscular HGB Conc 35 % (30-34); Mean Corpuscular Volume 90 fl (79-97); Platelet Count 216 K/mm3 (140-440); Red Blood Count 2.18 M/mm3 (3.65-5.03); Red Cell Distribution Width 14.7 % (13.2-15.2)
[2020-03-19 16:40] LABS: Hematocrit 19.6 % (30.3-42.9)
[2020-03-19 16:55] LABS: Calcium 7.9 mg/dL (8.4-10.2)
[2020-03-19 17:38] VITALS: BP 129/62
[2020-03-20 20:52] LABS: Myeloperoxidase Antibody <1.0 AI (<1.0)
[2020-03-22 00:58] LABS: Albumin 1.5 g/dL (3.8-4.8); Gamma Globulin 0.5 g/dL (0.8-1.7)
== END 2020-03-19 18:03 | DRG 871 ==
LOC: ED 09:25 → CC1 12:49 → IMCU 13:12 → CC1 13:17 → 3A 03-07 14:20
PROVIDERS: ADMIT Internal Medicine; ATTEND Internal Medicine
PROC: 0BH17EZ Insertion of Endotracheal Airway into Trachea, Via Natural or Artificial Opening (ICD-10-PCS; principal; 2020-03-05)
PROC: 5A1935Z Respiratory Ventilation, Less than 24 Consecutive Hours (ICD-10-PCS; 2020-03-05)
PROC: 4A033R1 Measurement of Arterial Saturation, Peripheral, Percutaneous Approach (ICD-10-PCS; 2020-03-05)
PROC: 02HV33Z Insertion of Infusion Device into Superior Vena Cava, Percutaneous Approach (ICD-10-PCS; 2020-03-05)
PROC: B548ZZA Ultrasonography of Superior Vena Cava, Guidance (ICD-10-PCS; 2020-03-05)
PROC: 30233N1 Transfusion of Nonautologous Red Blood Cells into Peripheral Vein, Percutaneous Approach (ICD-10-PCS; 2020-03-09)
DX: A41.89 Other specified sepsis (principal); U07.1 COVID-19; J96.01 Acute respiratory failure with hypoxia; N17.0 Acute kidney failure with tubular necrosis; R65.21 Severe sepsis with septic shock; E11.10 Type 2 diabetes mellitus with ketoacidosis without coma; G92 Toxic encephalopathy; J12.89 Other viral pneumonia; N39.0 Urinary tract infection, site not specified; E87.1 Hypo-osmolality and hyponatremia; I10 Essential (primary) hypertension; E78.5 Hyperlipidemia, unspecified; F03.90 Unspecified dementia, unspecified severity, without behavioral disturbance, psychotic disturbance, mood disturbance, and anxiety; L89.159 Pressure ulcer of sacral region, unspecified stage; D64.9 Anemia, unspecified; E87.8 Other disorders of electrolyte and fluid balance, not elsewhere classified; Z79.899 Other long term (current) drug therapy
CPT/HCPCS: 31500; 36415; 36600; 71045; 74018; 76770; 80048; 80053; 81001; 82140; 82550; 82570; 82607; 82728; 82747; 82803; 82805; 82947; 82962; 83520; 83550; 83615; 83735; 84100; 84145; 84165; 84300; 85007; 85025; 85027; 85379; 86021; 86038; 86140; 86160; 86850; 86900; 86901; 86920; 87040; 87641; 93005; 93306; 94002; 94003; 94760; 96361; 96365; 96366; 96375; G0378; A9270-GY; J0456; J0610; J0692; J0696; J1650; J1815; J1940; J3370; J3480; J7030; J7040; J7050; J7070; P9016; U0003-CS

== ENCOUNTER 2020-11-14 15:25 | Inpatient (IN) | payer MEDICARE ==
[2020-11-14] MEDS ORDERED: SODIUM CHLORIDE 0.9% 1000 ML IV SOLN IV ONE (16:05)
[2020-11-14] MEDS ORDERED: ACETAMINOPHEN 650 MG RECT SUPP PR ONE (16:08)
--- NOTE | 2020-11-14 16:32 | XRay Report ---
CHEST 1 VIEW INDICATION / CLINICAL INFORMATION: fever. COMPARISON: Chest radiograph 03/05/2020 FINDINGS: SUPPORT DEVICES: None. HEART / MEDIASTINUM: No significant abnormality. LUNGS / PLEURA: There has been interval development of patchy airspace opacity in the left lung base as well as the medial right lower lobe. No pleural effusion. No pneumothorax. ADDITIONAL FINDINGS: No significant additional findings. IMPRESSION: 1. Interval development of patchy bibasilar airspace opacities worrisome for pneumonia in the appropr iate clinical setting. Recommend follow-up chest radiograph in 6-12 weeks following treatment to ensu re resolution. Signer Name: Shannon Tanner MD Signed: 11/14/2020 4:27 PM Workstation Name: [id number]
[2020-11-14 16:52] LABS: Hematocrit 35.3 % (30.3-42.9); Hemoglobin 10.9 gm/dl (10.1-14.3); Mean Corpuscular HGB Conc 31 % (30-34); Mean Corpuscular Volume 101 fl (79-97); Platelet Count 294 K/mm3 (140-440); Red Blood Count 3.48 M/mm3 (3.65-5.03)
[2020-11-14] MEDS ORDERED: CEFEPIME/NS 1 GM/100 ML 1 GM/100 ML BAG IV ONE (16:53)
[2020-11-14] MEDS ORDERED: VANCOMYCIN/NS 1 GM/250 ML 1 GM/250 ML BAG IV ONE (17:00)
--- NOTE | 2020-11-14 17:01 | Emergency Department Report ---
ED Altered Mental Status HPI - General Chief Complaint: Altered Mental Status Stated Complaint: HIGH BLOOD SUGAR Time Seen by Provider: 11/14/20 15:59 Source: patient, EMS Mode of arrival: Stretcher Limitations: No Limitations - History of Present Illness Initial Comments: 55-year-old female, history of diabetes, dementia, anemia, COVID-19 (February 2020), presents to ED from [facility] with altered mental status. EMS reports patient's blood glucose is reading high. Patient is altered, unable to give history at this time. MD Complaint: altered mental status -: This afternoon Severity: severe Consistency of Symptoms: constant Context: diabetes Treatments Prior to Arrival: IV fluid - Related Data Home Medications Medication Instructions Recorded Confirmed Last Taken Citalopram [Celexa] 20 mg PO QDAY 01/25/20 03/06/20 Unknown Pravastatin [Pravachol] 40 mg PO QHS 01/25/20 03/06/20 Unknown Acetaminophen [Mapap] 650 mg PO BID PRN 02/26/20 03/06/20 Unknown Ascorbic Acid [Vitamin C with Chetna 500 mg PO DAILY 02/26/20 03/06/20 Unknown Hips] Glimepiride [Amaryl] 4 mg PO QAM 02/26/20 03/06/20 Unknown Insulin Lispro [Humalog] 5 units SQ AC 02/26/20 03/06/20 Unknown Multivit-Min/Ferrous Fumarate 15 mg PO DAILY 02/26/20 03/06/20 Unknown [Multivitamin with Minerals Tab] Previous Rx's Medication Instructions Recorded Last Taken Type Apixaban [Eliquis] 2.5 mg PO BID #30 tablet 03/01/20 Unknown Rx Allergies Allergy/AdvReac Type Severity Reaction Status Date / Time No Known Allergies Allergy Verified 02/26/20 10:24 ED Review of Systems ROS: Stated complaint: HIGH BLOOD SUGAR Other details as noted in HPI Comment: Unobtainable due to pts medical conditions ED Past Medical Hx - Past Medical History Hx Diabetes: Yes Hx Psychiatric Treatment: (anxiety) Hx Dementia: Yes Additional medical history: COVID +, history of Falling - Social History Smoking Status: Unknown if ever smoked - Medications Home Medications: Home Medications Medication Instructions Recorded Confirmed Last Taken Type Citalopram [Celexa] 20 mg PO QDAY 01/25/20 03/06/20 Unknown History Pravastatin [Pravachol] 40 mg PO QHS 01/25/20 03/06/20 Unknown History Acetaminophen [Mapap] 650 mg PO BID PRN 02/26/20 03/06/20 Unknown History Ascorbic Acid [Vitamin C with Chetna 500 mg PO DAILY 02/26/20 03/06/20 Unknown History Hips] Glimepiride [Amaryl] 4 mg PO QAM 02/26/20 03/06/20 Unknown History Insulin Lispro [Humalog] 5 units SQ AC 02/26/20 03/06/20 Unknown History Multivit-Min/Ferrous Fumarate 15 mg PO DAILY 02/26/20 03/06/20 Unknown History [Multivitamin with Minerals Tab] Apixaban [Eliquis] 2.5 mg PO BID #30 tablet 03/01/20 03/06/20 Unknown Rx ED Physical Exam - General Limitations: No Limitations General appearance: lethargic - Head Head exam: Present: atraumatic, normocephalic - Eye Eye exam: Present: normal appearance - ENT ENT exam: Present: mucous membranes dry - Neck Neck exam: Present: normal inspection - Respiratory Respiratory exam: Present: other (Tachypnea present) - Cardiovascular Cardiovascular Exam: Present: normal rhythm, tachycardia - GI/Abdominal GI/Abdominal exam: Present: soft. Absent: distended, tenderness - Extremities Exam Extremities exam: Present: normal inspection - Neurological Exam Neurological exam: Present: altered - Skin Skin exam: Present: warm, dry, intact, normal color ED Course Vital Signs 11/14/20 11/14/20 11/14/20 15:40 15:41 15:45 Temperature 102.8 F H Pulse Rate 162 H 161 H 160 H Respiratory 30 H 32 H 32 H Rate Blood Pressure 175/88 O2 Sat by Pulse 95 94 93 Oximetry 11/14/20 11/14/20 11/14/20 16:01 16:15 16:31 Temperature Pulse Rate 154 H 156 H 156 H Respiratory 27 H 31 H 32 H Rate Blood Pressure 188/83 188/83 172/85 O2 Sat by Pulse 94 95 93 Oximetry 11/14/20 11/14/20 11/14/20 16:45 17:00 17:15 Temperature Pulse Rate 146 H 136 H 140 H Respiratory 32 H 26 H 19 Rate Blood Pressure 169/75 156/66 157/72 O2 Sat by Pulse 93 93 94 Oximetry 11/14/20 11/14/20 11/14/20 17:30 17:45 18:00 Temperature Pulse Rate 135 H 129 H 129 H Respiratory 27 H 25 H 25 H Rate Blood Pressure 150/63 125/57 129/58 O2 Sat by Pulse 94 94 95 Oximetry 11/14/20 18:15 Temperature Pulse Rate 129 H Respiratory 25 H Rate Blood Pressure 126/57 O2 Sat by Pulse 95 Oximetry - Lab Data Result diagrams: 11/14/20 16:23 11/14/20 18:22 Lab Results 11/14/20 11/14/20 11/14/20 Range/Units 16:23 16:23 16:23 WBC 14.5 H (4.5-11.0) K/mm3 RBC 3.48 L (3.65-5.03) M/mm3 Hgb 10.9 (10.1-14.3) gm/dl Hct 35.3 (30.3-42.9) % MCV 101 H (79-97) fl MCH 31 (28-32) pg MCHC 31 (30-34) % RDW 14.0 (13.2-15.2) % Plt Count 294 (140-440) K/mm3 Add Manual Diff Complete Total Counted 100 Seg Neutrophils % [employer] Seg Neuts % (Manual) 92.0 H (40.0-70.0) % Lymphocytes % (Manual) 5.0 L (13.4-35.0) % Monocytes % (Manual) 3.0 (0.0-7.3) % Nucleated RBC % Not Reportable Seg Neutrophils # Man 13.3 H (1.8-7.7) K/mm3 Band Neutrophils # 0.0 K/mm3 Lymphocytes # (Manual) 0.7 L (1.2-5.4) K/mm3 Abs React Lymphs (Man) 0.0 K/mm3 Monocytes # (Manual) 0.4 (0.0-0.8) K/mm3 Eosinophils # (Manual) 0.0 (0.0-0.4) K/mm3 Basophils # (Manual) 0.0 (0.0-0.1) K/mm3 Metamyelocytes # 0.0 K/mm3 Myelocytes # 0.0 K/mm3 Promyelocytes # 0.0 K/mm3 Blast Cells # 0.0 K/mm3 WBC Morphology Not Reportable Hypersegmented Neuts Not Reportable Hyposegmented Neuts Not Reportable Hypogranular Neuts Not Reportable Smudge Cells Not Reportable Toxic Granulation Not Reportable Toxic Vacuolation Not Reportable Dohle Bodies Not Reportable Pelger-Huet Anomaly Not Reportable Jamia Rods Not Reportable Platelet Estimate Not Reportable Clumped Platelets Not Reportable Plt Clumps, EDTA Not Reportable Large Platelets Not Reportable Giant Platelets Not Reportable Platelet Satelliting Not Reportable Plt Morphology Comment Not Reportable RBC Morphology Normal Dimorphic RBCs Not Reportable Polychromasia Not Reportable Hypochromasia Not Reportable Poikilocytosis Not Reportable Anisocytosis Not Reportable Microcytosis Not Reportable Macrocytosis Not Reportable Spherocytes Not Reportable Pappenheimer Bodies Not Reportable Sickle Cells Not Reportable Target Cells Not Reportable Tear Drop Cells Not Reportable Ovalocytes Not Reportable Helmet Cells Not Reportable Galvan-[place] Bodies Not Reportable [place] Rings Not Reportable [place] Cells Not Reportable Bite Cells Not Reportable Crenated Cell Not Reportable Elliptocytes Not Reportable Acanthocytes (Spur) Not Reportable Rouleaux Not Reportable Hemoglobin C Crystals Not Reportable Schistocytes Not Reportable Malaria parasites Not Reportable Felice Bodies Not Reportable Hem Pathologist Commnt No PT 15.3 H (12.2-14.9) Sec. INR 1.21 H (0.87-1.13) APTT 23.1 L (24.2-36.6) Sec. D-Dimer (0-234) ng/mlDDU VBG pH (7.320-7.420) Sodium (137-145) mmol/L Potassium (3.6-5.0) mmol/L Chloride (98-107) mmol/L Carbon Dioxide (22-30) mmol/L Anion Gap mmol/L BUN (7-17) mg/dL Creatinine (0.6-1.2) mg/dL Estimated GFR ml/min BUN/Creatinine Ratio % Glucose (65-100) mg/dL Ketones Quantitative (Negative) Lactic Acid 7.50 H* (0.7-2.0) mmol/L Calcium (8.4-10.2) mg/dL Phosphorus (2.5-4.5) mg/dL Magnesium (1.7-2.3) mg/dL Total Bilirubin (0.1-1.2) mg/dL Direct Bilirubin (0-0.2) mg/dL Indirect Bilirubin mg/dL AST (5-40) units/L ALT (7-56) units/L Alkaline Phosphatase (35-129) units/L Lactate Dehydrogenase (91-180) units/L Troponin T (0.00-0.029) ng/mL Total Protein (6.3-8.2) g/dL Albumin (3.9-5) g/dL Albumin/Globulin Ratio % Urine Color (Yellow) Urine Turbidity (Clear) Urine pH (5.0-7.0) Ur Specific [place] (1.003-1.030) Urine Protein (Negative) mg/dL Urine Glucose (UA) (Negative) mg/dL Urine Ketones (Negative) mg/dL Urine Blood (Negative) Urine Nitrite (Negative) Urine Bilirubin (Negative) Urine Urobilinogen (<2.0) mg/dL Ur Leukocyte Esterase (Negative) Urine WBC (Auto) (0.0-6.0) /HPF Urine RBC (Auto) (0.0-6.0) /HPF U Epithel Cells (Auto) (0-13.0) /HPF Urine Bacteria (Auto) (Negative) /HPF Urine Yeast (Budding) /HPF 11/14/20 11/14/20 11/14/20 Range/Units 16:23 16:23 16:23 WBC (4.5-11.0) K/mm3 RBC (3.65-5.03) M/mm3 Hgb (10.1-14.3) gm/dl Hct (30.3-42.9) % MCV (79-97) fl MCH (28-32) pg MCHC (30-34) % RDW (13.2-15.2) % Plt Count (140-440) K/mm3 Add Manual Diff Total Counted Seg Neutrophils % Seg Neuts % (Manual) (40.0-70.0) % Lymphocytes % (Manual) (13.4-35.0) % Monocytes % (Manual) (0.0-7.3) % Nucleated RBC % Seg Neutrophils # Man (1.8-7.7) K/mm3 Band Neutrophils # K/mm3 Lymphocytes # (Manual) (1.2-5.4) K/mm3 Abs React Lymphs (Man) K/mm3 Monocytes # (Manual) (0.0-0.8) K/mm3 Eosinophils # (Manual) (0.0-0.4) K/mm3 Basophils # (Manual) (0.0-0.1) K/mm3 Metamyelocytes # K/mm3 Myelocytes # K/mm3 Promyelocytes # K/mm3 Blast Cells # K/mm3 WBC Morphology Hypersegmented Neuts Hyposegmented Neuts Hypogranular Neuts Smudge Cells Toxic Granulation Toxic Vacuolation Dohle Bodies Pelger-Huet Anomaly Jamia Rods Platelet Estimate Clumped Platelets Plt Clumps, EDTA Large Platelets Giant Platelets Platelet Satelliting Plt Morphology Comment RBC Morphology Dimorphic RBCs Polychromasia Hypochromasia Poikilocytosis Anisocytosis Microcytosis Macrocytosis Spherocytes Pappenheimer Bodies Sickle Cells Target Cells Tear Drop Cells Ovalocytes Helmet Cells Galvan-[place] Bodies [place] Rings [place] Cells Bite Cells Crenated Cell Elliptocytes Acanthocytes (Spur) Rouleaux Hemoglobin C Crystals Schistocytes Malaria parasites Felice Bodies Hem Pathologist Commnt PT (12.2-14.9) Sec. INR (0.87-1.13) APTT (24.2-36.6) Sec. D-Dimer (0-234) ng/mlDDU VBG pH 7.216 L (7.320-7.420) Sodium 166 H* (137-145) mmol/L Potassium 5.0 (3.6-5.0) mmol/L Chloride 120.8 H (98-107) mmol/L Carbon Dioxide 6 L* (22-30) mmol/L Anion Gap 44 mmol/L BUN 36 H (7-17) mg/dL Creatinine 1.9 H (0.6-1.2) mg/dL Estimated GFR 27 ml/min BUN/Creatinine Ratio 19 % Glucose 765 H* (65-100) mg/dL Ketones Quantitative Moderate (Negative) Lactic Acid (0.7-2.0) mmol/L Calcium 11.4 H (8.4-10.2) mg/dL Phosphorus (2.5-4.5) mg/dL Magnesium (1.7-2.3) mg/dL Total Bilirubin < 0.20 (0.1-1.2) mg/dL Direct Bilirubin < 0.2 (0-0.2) mg/dL Indirect Bilirubin 0.0 mg/dL AST 36 (5-40) units/L ALT 28 (7-56) units/L Alkaline Phosphatase 259 H (35-129) units/L Lactate Dehydrogenase (91-180) units/L Troponin T < 0.010 (0.00-0.029) ng/mL Total Protein 7.7 (6.3-8.2) g/dL Albumin 3.3 L (3.9-5) g/dL Albumin/Globulin Ratio 0.8 % Urine Color (Yellow) Urine Turbidity (Clear) Urine pH (5.0-7.0) Ur Specific [place] (1.003-1.030) Urine Protein (Negative) mg/dL Urine Glucose (UA) (Negative) mg/dL Urine Ketones (Negative) mg/dL Urine Blood (Negative) Urine Nitrite (Negative) Urine Bilirubin (Negative) Urine Urobilinogen (<2.0) mg/dL Ur Leukocyte Esterase (Negative) Urine WBC (Auto) (0.0-6.0) /HPF Urine RBC (Auto) (0.0-6.0) /HPF U Epithel Cells (Auto) (0-13.0) /HPF Urine Bacteria (Auto) (Negative) /HPF Urine Yeast (Budding) /HPF 11/14/20 11/14/20 11/14/20 Range/Units 16:27 18:22 18:22 WBC (4.5-11.0) K/mm3 RBC (3.65-5.03) M/mm3 Hgb (10.1-14.3) gm/dl Hct (30.3-42.9) % MCV (79-97) fl MCH (28-32) pg MCHC (30-34) % RDW (13.2-15.2) % Plt Count (140-440) K/mm3 Add Manual Diff Total Counted Seg Neutrophils % Seg Neuts % (Manual) (40.0-70.0) % Lymphocytes % (Manual) (13.4-35.0) % Monocytes % (Manual) (0.0-7.3) % Nucleated RBC % Seg Neutrophils # Man (1.8-7.7) K/mm3 Band Neutrophils # K/mm3 Lymphocytes # (Manual) (1.2-5.4) K/mm3 Abs React Lymphs (Man) K/mm3 Monocytes # (Manual) (0.0-0.8) K/mm3 Eosinophils # (Manual) (0.0-0.4) K/mm3 Basophils # (Manual) (0.0-0.1) K/mm3 Metamyelocytes # K/mm3 Myelocytes # K/mm3 Promyelocytes # K/mm3 Blast Cells # K/mm3 WBC Morphology Hypersegmented Neuts Hyposegmented Neuts Hypogranular Neuts Smudge Cells Toxic Granulation Toxic Vacuolation Dohle Bodies Pelger-Huet Anomaly Jamia Rods Platelet Estimate Clumped Platelets Plt Clumps, EDTA Large Platelets Giant Platelets Platelet Satelliting Plt Morphology Comment RBC Morphology Dimorphic RBCs Polychromasia Hypochromasia Poikilocytosis Anisocytosis Microcytosis Macrocytosis Spherocytes Pappenheimer Bodies Sickle Cells Target Cells Tear Drop Cells Ovalocytes Helmet Cells Galvan-[place] Bodies [place] Rings Luis Cells Bite Cells Crenated Cell Elliptocytes Acanthocytes (Spur) Rouleaux Hemoglobin C Crystals Schistocytes Malaria parasites Felice Bodies Hem Pathologist Commnt PT (12.2-14.9) Sec. INR (0.87-1.13) APTT (24.2-36.6) Sec. D-Dimer (0-234) ng/mlDDU VBG pH (7.320-7.420) Sodium (137-145) mmol/L Potassium (3.6-5.0) mmol/L Chloride (98-107) mmol/L Carbon Dioxide (22-30) mmol/L Anion Gap mmol/L BUN (7-17) mg/dL Creatinine (0.6-1.2) mg/dL Estimated GFR ml/min BUN/Creatinine Ratio % Glucose (65-100) mg/dL Ketones Quantitative (Negative) Lactic Acid 2.60 H* (0.7-2.0) mmol/L Calcium (8.4-10.2) mg/dL Phosphorus 1.30 L (2.5-4.5) mg/dL Magnesium 2.20 (1.7-2.3) mg/dL Total Bilirubin (0.1-1.2) mg/dL Direct Bilirubin (0-0.2) mg/dL Indirect Bilirubin mg/dL AST (5-40) units/L ALT (7-56) units/L Alkaline Phosphatase (35-129) units/L Lactate Dehydrogenase (91-180) units/L Troponin T (0.00-0.029) ng/mL Total Protein (6.3-8.2) g/dL Albumin (3.9-5) g/dL Albumin/Globulin Ratio % Urine Color Yellow (Yellow) Urine Turbidity Cloudy (Clear) Urine pH 5.0 (5.0-7.0) Ur Specific [place] 1.022 (1.003-1.030) Urine Protein 100 mg/dl (Negative) mg/dL Urine Glucose (UA) >=500 (Negative) mg/dL Urine Ketones 80 (Negative) mg/dL Urine Blood Sm (Negative) Urine Nitrite Neg (Negative) Urine Bilirubin Neg (Negative) Urine Urobilinogen < 2.0 (<2.0) mg/dL Ur Leukocyte Esterase Neg (Negative) Urine WBC (Auto) 38.0 H (0.0-6.0) /HPF Urine RBC (Auto) 155.0 (0.0-6.0) /HPF U Epithel Cells (Auto) < 1.0 (0-13.0) /HPF Urine Bacteria (Auto) 1+ (Negative) /HPF Urine Yeast (Budding) 3+ /HPF 11/14/20 11/14/20 11/14/20 Range/Units 18:22 18:30 18:30 WBC (4.5-11.0) K/mm3 RBC (3.65-5.03) M/mm3 Hgb (10.1-14.3) gm/dl Hct (30.3-42.9) % MCV (79-97) fl MCH (28-32) pg MCHC (30-34) % RDW (13.2-15.2) % Plt Count (140-440) K/mm3 Add Manual Diff Total Counted Seg Neutrophils % Seg Neuts % (Manual) (40.0-70.0) % Lymphocytes % (Manual) (13.4-35.0) % Monocytes % (Manual) (0.0-7.3) % Nucleated RBC % Seg Neutrophils # Man (1.8-7.7) K/mm3 Band Neutrophils # K/mm3 Lymphocytes # (Manual) (1.2-5.4) K/mm3 Abs React Lymphs (Man) K/mm3 Monocytes # (Manual) (0.0-0.8) K/mm3 Eosinophils # (Manual) (0.0-0.4) K/mm3 Basophils # (Manual) (0.0-0.1) K/mm3 Metamyelocytes # K/mm3 Myelocytes # K/mm3 Promyelocytes # K/mm3 Blast Cells # K/mm3 WBC Morphology Hypersegmented Neuts Hyposegmented Neuts Hypogranular Neuts Smudge Cells Toxic Granulation Toxic Vacuolation Dohle Bodies Pelger-Huet Anomaly Jamia Rods Platelet Estimate Clumped Platelets Plt Clumps, EDTA Large Platelets Giant Platelets Platelet Satelliting Plt Morphology Comment RBC Morphology Dimorphic RBCs Polychromasia Hypochromasia Poikilocytosis Anisocytosis Microcytosis Macrocytosis Spherocytes Pappenheimer Bodies Sickle Cells Target Cells Tear Drop Cells Ovalocytes Helmet Cells Galvan-[place] Bodies [place] Rings Luis Cells Bite Cells Crenated Cell Elliptocytes Acanthocytes (Spur) Rouleaux Hemoglobin C Crystals Schistocytes Malaria parasites Felice Bodies Hem Pathologist Commnt PT (12.2-14.9) Sec. INR (0.87-1.13) APTT (24.2-36.6) Sec. D-Dimer 2876.26 H (0-234) ng/mlDDU VBG pH (7.320-7.420) Sodium 138 D (137-145) mmol/L Potassium 3.6 D (3.6-5.0) mmol/L Chloride 102.5 (98-107) mmol/L Carbon Dioxide 11 L (22-30) mmol/L Anion Gap 28 mmol/L BUN 32 H (7-17) mg/dL Creatinine 1.5 H (0.6-1.2) mg/dL Estimated GFR 36 ml/min BUN/Creatinine Ratio 21 % Glucose 695 H* (65-100) mg/dL Ketones Quantitative (Negative) Lactic Acid (0.7-2.0) mmol/L Calcium 9.8 (8.4-10.2) mg/dL Phosphorus (2.5-4.5) mg/dL Magnesium (1.7-2.3) mg/dL Total Bilirubin (0.1-1.2) mg/dL Direct Bilirubin (0-0.2) mg/dL Indirect Bilirubin mg/dL AST (5-40) units/L ALT (7-56) units/L Alkaline Phosphatase (35-129) units/L Lactate Dehydrogenase 247 H (91-180) units/L Troponin T (0.00-0.029) ng/mL Total Protein (6.3-8.2) g/dL Albumin (3.9-5) g/dL Albumin/Globulin Ratio % Urine Color (Yellow) Urine Turbidity (Clear) Urine pH (5.0-7.0) Ur Specific [place] (1.003-1.030) Urine Protein (Negative) mg/dL Urine Glucose (UA) (Negative) mg/dL Urine Ketones (Negative) mg/dL Urine Blood (Negative) Urine Nitrite (Negative) Urine Bilirubin (Negative) Urine Urobilinogen (<2.0) mg/dL Ur Leukocyte Esterase (Negative) Urine WBC (Auto) (0.0-6.0) /HPF Urine RBC (Auto) (0.0-6.0) /HPF U Epithel Cells (Auto) (0-13.0) /HPF Urine Bacteria (Auto) (Negative) /HPF Urine Yeast (Budding) /HPF - Radiology Data Radiology results: report reviewed, image reviewed - Medical Decision Making 55-year-old female presents to ED from [facility] with altered mental status. Patient is febrile, tachycardic, and tachypneic. EMS reports Accu-Chek reading HIGH. Sepsis alert was called. Blood cultures were drawn, patient given vancomycin and cefepime 30 cc/kg bolus of IV fluids. Labs show WBCs of 14.5. Chemistry shows sodium of 166, bicarb of 6, anion gap of 44, glucose of 765 with moderate serum ketones and VBG of 7.21. Patient appears to be in DKA. Insulin DKA protocol initiated. Chest x-ray shows evidence of pneumonia. O2 sat is 93% on room air. Patient was positive for COVID-19 back in February 2020 however repeat Covid testing ordered along with Covid markers. Following IV fluid administration, heart rate has improved from 160s to 120s. Lactic acid improved from 7.5-2.6. Patient will be admitted to ICU by hospitalist, Dr. Jones, for further management. - Differential Diagnosis DKA, pneumonia, UTI Critical Care Time: Yes Critical care time in (mins) excluding proc time.: 35 Critical care attestation.: If time is entered above; I have spent that time in minutes in the direct care of this critically ill patient, excluding procedure time. Critical Care Time: 35 min ED Disposition Clinical Impression: Sepsis, Hypernatremia, Pneumonia, Acute encephalopathy, Suspected 2019-nCoV infection DKA (diabetic ketoacidoses) Qualifiers: Diabetes mellitus type: type 1 UTI (urinary tract infection) Qualifiers: Encounter type: initial encounter Disposition: OP ADMIT IP TO THIS HOSP Is pt being admited?: Yes Condition: Stable Instructions: Diabetic Ketoacidosis (ED), Bacterial Pneumonia (ED) Referrals: GUILHERME JONES MD [Primary Care Provider] - 3-5 Days Time of Disposition: 18:27
[2020-11-14 17:08] LABS: INR 1.21 (0.87-1.13); Partial Thromboplastin Time 23.1 Sec. (24.2-36.6)
[2020-11-14 17:13] LABS: Bacteria,Urine 1+ /HPF (Negative); Bilirubin,Urine NEG (Negative); Blood,Urine SM (Negative); Color,Urine Yellow (Yellow); Urobilinogen,Urine < 2.0 mg/dL (<2.0)
[2020-11-14 17:25] LABS: Alanine Aminotransferase 28 units/L (7-56); Albumin 3.3 g/dL (3.9-5); BUN/Creatinine Ratio 19; Blood Urea Nitrogen 36 mg/dL (7-17); Calcium 11.4 mg/dL (8.4-10.2); Hemolysis Index 1
[2020-11-14 17:45] LABS: RBC Morphology Normal; Total Cells Counted 100
[2020-11-14 17:54] LABS: Bilirubin,Direct < 0.2 mg/dL (0-0.2)
[2020-11-14] MEDS ORDERED: SODIUM CHLORIDE 0.9% 1000 ML 1,000 ML IV ONE (18:03)
--- NOTE | 2020-11-14 18:36 | History and Physical Report ---
History of Present Illness Chief complaint: Her blood sugar is high History of present illness: 55 YO Female [facility] Facility Resident at [facility] with Vascular Dementia, Debility, DM, HLD presents to ED for evaluation. Pt is nonverbal and unable to provide history. Patient history taken from EMS staff, ED staff, and long-term facility staff. As per staff the patient was found to be ill-appearing with worsening confusion over the past 1 day. The patient was also found to have elevated blood glucose levels. EMS was notified and upon arrival the patient was found to be in distress and subsequently transported to [facility] for further care and evaluation of the aforementioned symptoms. Patient seen and evaluated in the emergency department. Lab and imaging studies reviewed. Patient found to have sepsis complicated by septic shock suspected secondary to urinary tract infection, diabetic ketoacidosis, metabolic acidosis, toxic metabolic encephalopathy, acute kidney injury, and hypernatremia. Patient initiated on sepsis protocol. Coronavirus protocol initiated in the emergency department prior to my evaluation. Patient admitted to ICU due to increased risk for decompensation and development of multiple system organ failure. Critical care team consult ember valdivia in the emergency department. No further history is obtainable. Prior admission on 03/05/2020 reviewed. All medication listed at time of admission has been reconciled. Advanced care planning conducted in the emergency department. Past History Past Medical History: diabetes, hyperlipidemia Past Surgical History: No surgical history, Other (Reviewed) Social history: single. denies: smoking, alcohol abuse, prescription drug abuse Family history: diabetes, hypertension Medications and Allergies Allergies Allergy/AdvReac Type Severity Reaction Status Date / Time No Known Allergies Allergy Verified 02/26/20 10:24 Home Medications Medication Instructions Recorded Confirmed Last Taken Type Citalopram [Celexa] 20 mg PO QDAY 01/25/20 03/06/20 Unknown History Pravastatin [Pravachol] 40 mg PO QHS 01/25/20 03/06/20 Unknown History Acetaminophen [Mapap] 650 mg PO BID PRN 02/26/20 03/06/20 Unknown History Ascorbic Acid [Vitamin C with Chetna 500 mg PO DAILY 02/26/20 03/06/20 Unknown H istory Hips] Glimepiride [Amaryl] 4 mg PO QAM 02/26/20 03/06/20 Unknown History Insulin Lispro [Humalog] 5 units SQ AC 02/26/20 03/06/20 Unknown History Multivit-Min/Ferrous Fumarate 15 mg PO DAILY 02/26/20 03/06/20 Unknown History [Multivitamin with Minerals Tab] Apixaban [Eliquis] 2.5 mg PO BID #30 tablet 03/01/20 03/06/20 Unknown Rx Active Meds: Active Medications Insulin Human Regular 100 (units/ Sodium Chloride) 100 mls @ 1 mls/hr IV TITR S CH; Protocol Sodium Chloride (Nacl 0.9% 1000 Ml) 1,000 mls @ 999 mls/hr IV BOLUS ONE Stop: 11/14/20 19:03 Sodium Chloride (Sodium Chloride 0.9% 10 Ml Flush Syringe) 10 ml IV BID SHAHLA Sodium Chloride (Sodium Chloride 0.9% 10 Ml Flush Syringe) 10 ml IV PRN PRN PRN Reason: LINE FLUSH Review of Systems ROS unobtainable: due to mental status Exam - Constitutional Vitals: Temp Pulse Resp BP Pulse Ox 102.8 F H 129 H 25 H 126/57 95 11/14/20 15:41 11/14/20 18:15 11/14/20 18:15 11/14/20 18:15 11/14/20 18:15 General appearance: Present: severe distress - EENT Eyes: Present: PERRL ENT: clear oral mucosa, hearing decreased - Neck Neck: Present: supple, normal ROM - Respiratory Respiratory effort: normal Respiratory: bilateral: diminished - Cardiovascular Rhythm: other (Tachycardia) Heart Sounds: Present: S1 & S2. Absent: rub, click - Extremities Extremities: pulses symmetrical, No edema Peripheral Pulses: abnormal (Capillary refill greater than 3.5 seconds) - Abdominal General gastrointestinal: Present: soft, non-tender, non-distended, normal bowel sounds Female genitourinary: Present: normal - Integumentary Integumentary: Present: dry, clammy, decreased turgor - Musculoskeletal Musculoskeletal: generalized weakness - Psychiatric Psychiatric: no appropriate mood/affect, no intact judgment & insight, no memory intact - Neurologic Neurologic: CNII-XII intact, no focal deficits, moves all extremities, no gait normal HEART Score - HEART Score Troponin: Troponin T < 0.010 ng/mL (0.00-0.029) 11/14/20 16:23 Results - Labs CBC & Chem 7: 11/14/20 16:23 11/14/20 16:23 Labs: Abnormal lab results 11/14/20 11/14/20 11/14/20 Range/Units 16:23 16:23 16:23 WBC 14.5 H (4.5-11.0) K/mm3 RBC 3.48 L (3.65-5.03) M/mm3 MCV 101 H (79-97) fl Seg Neuts % (Manual) 92.0 H (40.0-70.0) % Lymphocytes % (Manual) 5.0 L (13.4-35.0) % Seg Neutrophils # Man 13.3 H (1.8-7.7) K/mm3 Lymphocytes # (Manual) 0.7 L (1.2-5.4) K/mm3 PT 15.3 H (12.2-14.9) Sec. INR 1.21 H (0.87-1.13) APTT 23.1 L (24.2-36.6) Sec. VBG pH (7.320-7.420) Sodium (137-145) mmol/L Chloride (98-107) mmol/L Carbon Dioxide (22-30) mmol/L BUN (7-17) mg/dL Creatinine (0.6-1.2) mg/dL Glucose (65-100) mg/dL Lactic Acid 7.50 H* (0.7-2.0) mmol/L Calcium (8.4-10.2) mg/dL Alkaline Phosphatase (35-129) units/L Albumin (3.9-5) g/dL Urine WBC (Auto) (0.0-6.0) /HPF 11/14/20 11/14/20 11/14/20 Range/Units 16:23 16:23 16:27 WBC (4.5-11.0) K/mm3 RBC (3.65-5.03) M/mm3 MCV (79-97) fl Seg Neuts % (Manual) (40.0-70.0) % Lymphocytes % (Manual) (13.4-35.0) % Seg Neutrophils # Man (1.8-7.7) K/mm3 Lymphocytes # (Manual) (1.2-5.4) K/mm3 PT (12.2-14.9) Sec. INR (0.87-1.13) APTT (24.2-36.6) Sec. VBG pH 7.216 L (7.320-7.420) Sodium 166 H* (137-145) mmol/L Chloride 120.8 H (98-107) mmol/L Carbon Dioxide 6 L* (22-30) mmol/L BUN 36 H (7-17) mg/dL Creatinine 1.9 H (0.6-1.2) mg/dL Glucose 765 H* (65-100) mg/dL Lactic Acid (0.7-2.0) mmol/L Calcium 11.4 H (8.4-10.2) mg/dL Alkaline Phosphatase 259 H (35-129) units/L Albumin 3.3 L (3.9-5) g/dL Urine WBC (Auto) 38.0 H (0.0-6.0) /HPF Assessment and Plan - Patient Problems (1) Sepsis Current Visit: Yes Status: Acute Plan to address problem: Sepsis protocol: CBC, CMP, IV antibiotic therapy, IV fluids resuscitation therapy as clinically indicated, monitor urine output every shift, monitor fluid balance, supportive care. Maintain mean arterial pressure greater than or equal to 65, blood culture, chest x-ray, urinalysis, serial lactic acid level. The high probability of a clinically significant, sudden or life threatening deterioration of the [neuro, endocrine, infectious disease, renal] system(s) required my full and direct attention, intervention and personal management. The aggregate critical care time was [65] minutes. This time is in addition to time spent performing reported procedures but includes the following: [x] Data Review and interpretation [x] Patient assessment and monitoring of vital signs [x] Documentation [x] Medication orders and management (2) DKA (diabetic ketoacidoses) Current Visit: Yes Status: Acute Qualifiers: Diabetes mellitus type: type 1 Plan to address problem: DKA protocol: IV fluid resuscitation therapy, serial BMP, monitor anion gap, insulin drip, (3) Toxic metabolic encephalopathy Current Visit: Yes Status: Acute Plan to address problem: Aspiration precaution, fall precaution, seizure precaution, neuro check, treat sepsis, supportive care. (4) Suspected 2019-nCoV infection Current Visit: Yes Status: Acute Plan to address problem: Coronavirus protocol: Contact precautions, isolation precautions, coronavirus p rotocol initiated in the emergency department, coronavirus PCR ordered and is pending at time of admission. (5) Pneumonia Current Visit: Yes Status: Acute Plan to address problem: Pneumonia protocol: Chest x-ray, CBC, IV antibiotic therapy, supplemental oxygen, pulse oximetry, nebulizer therapy, blood culture. (6) UTI (urinary tract infection) Current Visit: Yes Status: Acute Qualifiers: Encounter type: initial encounter Plan to address problem: CBC, CMP, urinalysis, IV antibiotic therapy, supportive care. (7) DVT prophylaxis Current Visit: Yes Status: Acute Plan to address problem: SCD to bilateral lower extremities while in bed, prophylactic anticoagulation (8) Advance care planning Current Visit: Yes Status: Acute Plan to address problem: Disease education conducted, care plan discussed, diagnosis discussed, prognosis discussed, +30 minutes.
[2020-11-14] MEDS ORDERED: ACETAMINOPHEN 325 MG TAB PO PRN (18:37)
[2020-11-14] MEDS ORDERED: SODIUM BICARB 8.4% 50 MEQ/50 ML SYRINGE IV ONE (18:38)
[2020-11-14] MEDS: HYDROmorphone 1 MG/1 ML INJ IV PRN ×2 (18:50→23:16)
[2020-11-14 18:53] LABS: Calcium 9.8 mg/dL (8.4-10.2)
[2020-11-14] MEDS ORDERED: INSULIN REGULAR, HUMAN 100 UNITS in SODIUM CHLORIDE 0.9% 99 ML IV SCH (19:00)
[2020-11-14] MEDS: cefTRIAXone/NS 2 GM/100 ML 2 GM/100 ML BAG IV SCH (20:28)
[2020-11-14 21:00] LABS: Calcium 9.6 mg/dL (8.4-10.2)
[2020-11-14] MEDS: AZITHROMYCIN/NS 500 MG/250 ML 500 MG/250 ML BAG IV SCH (21:05)
[2020-11-14 23:42] LABS: Blood Urea Nitrogen 32 mg/dL (7-17); Calcium 9.6 mg/dL (8.4-10.2); Hemolysis Index 16
[2020-11-15 00:04] LABS: BUN/Creatinine Ratio 160
[2020-11-15] MEDS ORDERED: SODIUM CHLORIDE 0.9% 1000 ML 1,000 ML IV SCH ×2 (00:45→14:00)
[2020-11-15] MEDS ORDERED: NACL 0.9%/KCL 20 MEQ 20 MEQ/1,000 ML BAG IV SCH (01:00)
[2020-11-15] MEDS: POTASSIUM CHLORIDE 10 MEQ 10 MEQ/100 ML BAG IV SCH ×4 (01:08→04:30)
[2020-11-15] MEDS: HYDROmorphone 1 MG/1 ML INJ IV PRN (01:22)
[2020-11-15] MEDS ORDERED: D5NS W/KCL 20 MEQ 20 MEQ/1,000 ML BAG IV SCH (04:00)
[2020-11-15 06:49] LABS: Hematocrit 26.1 % (30.3-42.9); Hemoglobin 8.9 gm/dl (10.1-14.3); Mean Corpuscular HGB Conc 34 % (30-34); Mean Corpuscular Volume 95 fl (79-97); Platelet Count 142 K/mm3 (140-440); Red Blood Count 2.74 M/mm3 (3.65-5.03); Red Cell Distribution Width 12.8 % (13.2-15.2)
[2020-11-15 07:01] LABS: Calcium 9.2 mg/dL (8.4-10.2)
[2020-11-15 07:05] LABS: Alanine Aminotransferase 20 units/L (7-56); Albumin 2.5 g/dL (3.9-5); BUN/Creatinine Ratio 20; Blood Urea Nitrogen 32 mg/dL (7-17); Calcium 9.6 mg/dL (8.4-10.2); Hemolysis Index 7
[2020-11-15] MEDS ORDERED: DEXTROSE 50% IN WATER (25GM) 50 ML SYRINGE IV PRN (10:20)
[2020-11-15 10:48] LABS: Calcium 9.5 mg/dL (8.4-10.2)
[2020-11-15 11:07] LABS: Band Neutrophils # (Manual) 0.2 K/mm3; Total Cells Counted 100
[2020-11-15 11:25] LABS: RBC Morphology Normal
[2020-11-15 11:26] LABS: Platelet Estimate Consistent w Auto
--- NOTE | 2020-11-15 11:51 | Progress Note ---
Assessment and Plan Assessment and plan: This is a 55 year old female admitted with Sepsis, DKA, COVID 19 PNA, Lactic acidosis, RACH, UTI, PNA Sepsis Covid 19 PUI DKA RACH Toxic metabolic encephalopathy Pneumonia Urinary tract infection Leukocytosis Hypernaturemia, improving Hyperchloremia, improving Lactic acidosis, resolved Hypophosphatemia Hypokalemia, resolved Elevated ddimer -CCM, ID consulted, appreciate recommendations -Contact/Droplet precautions -11/14 CXR shows interval development of patchy bibasilar airspace opacities worrisome for pneumonia in the appropriate clinical setting. -COVID 19 PCR pending -11/14 blood cultures x2 in progress -11/14 urinalysis revealed pyuria -s/p 2300ml NS bolus in ED -abx therapy -s/p DKA protocol -Replete Phos -Pureed diet -SSI, long acting insulin -Trend BMP, phos -Hemaglobin A1c pending -Urine lytes pending -Renal US pending -BLE dopplar US pending DVT/GI prophylaxsis: Heparin subq, SCDS to BLE while in bed, PPI Dispo: Transfer to floor History Interval history: This is a 55-year-old female who is a resident of [facility] with vascular dementia, depression, developmental delay, debility, diabetes mellitus, hyperlipidemia, recent COVID 19 infection, chronic kidney disease and recurrent DKA who presents the emergency department on 11/14 with reported confusion and ill-appearing over the past day and hypoglycemia. Evaluation in the emergency department revealed sepsis with tachycardia, febrile to 102.8, tachypnea, lactic acidosis and RACH suspected secondary to urinary tract infection/?covid 19 pna, diabetic ketoacidosis, metabolic acidosis, toxic metabolic encephalopathy, acute kidney injury and hypernatremia. Patient was initiated sepsis, COVID-19 and DKA protocol admitted hospital service with consults to CCM and nutrition. 11/15: Patient has been transitioned to sliding scale insulin and started on a pured diet. Per SNF patient has completed antibiotic therapy for her mouth. Her leukocytosis, hypernatremia, hyperchloremia, metabolic acidosis have improved. She has worsening kidney function. ID consulted today. Hospitalist Physical - Constitutional Vitals: Temp Pulse Resp BP Pulse Ox 100.4 F H 104 H 25 H 105/65 95 11/15/20 03:51 11/15/20 11:05 11/15/20 11:05 11/15/20 11:05 11/15/20 11:05 General appearance: Present: no acute distress, disheveled - EENT Eyes: Present: PERRL ENT: hearing intact, poor dentition - Neck Neck: Present: normal ROM - Respiratory Respiratory effort: normal Respiratory: bilateral: diminished - Cardiovascular Rhythm: regular Heart Sounds: Present: S1 & S2. Absent: systolic murmur, diastolic murmur - Extremities Extremities: no ischemia, pulses intact, pulses symmetrical, No edema, normal temperature, normal color, Full ROM Peripheral Pulses: within normal limits - Abdominal General gastrointestinal: soft, non-tender, non-distended, normal bowel sounds - Integumentary Integumentary: Present: warm, dry - Psychiatric Psychiatric: other (flat affect) - Neurologic Neurologic: moves all extremities, other (delayed response, follows commans, weak) - Allied Health Allied health notes reviewed: nursing HEART Score - HEART Score Troponin: Troponin T < 0.010 ng/mL (0.00-0.029) 11/14/20 16:23 Results - Labs CBC & Chem 7: 11/15/20 06:18 11/15/20 10:18 Labs: Laboratory Last Values WBC 10.7 K/mm3 (4.5-11.0) 11/15/20 06:18 RBC 2.74 M/mm3 (3.65-5.03) L 11/15/20 06:18 Hgb 8.9 gm/dl (10.1-14.3) L 11/15/20 06:18 Hct 26.1 % (30.3-42.9) L D 11/15/20 06:18 MCV 95 fl (79-97) 11/15/20 06:18 MCH 32 pg (28-32) 11/15/20 06:18 MCHC 34 % (30-34) 11/15/20 06:18 RDW 12.8 % (13.2-15.2) L 11/15/20 06:18 Plt Count 142 K/mm3 (140-440) 11/15/20 06:18 Add Manual Diff Complete 11/15/20 06:18 Total Counted 100 11/15/20 06:18 Seg Neutrophils % Bakery Sales Clerk 11/14/20 16:23 Seg Neuts % (Manual) 81.0 % (40.0-70.0) H 11/15/20 06:18 Band Neutrophils % 2.0 % 11/15/20 06:18 Lymphocytes % (Manual) 15.0 % (13.4-35.0) 11/15/20 06:18 Monocytes % (Manual) 1.0 % (0.0-7.3) 11/15/20 06:18 Metamyelocytes % 1.0 % 11/15/20 06:18 Nucleated RBC % Not Reportable 11/15/20 06:18 Seg Neutrophils # Man 8.7 K/mm3 (1.8-7.7) H 11/15/20 06:18 Band Neutrophils # 0.2 K/mm3 11/15/20 06:18 Lymphocytes # (Manual) 1.6 K/mm3 (1.2-5.4) 11/15/20 06:18 Abs React Lymphs (Man) 0.0 K/mm3 11/15/20 06:18 Monocytes # (Manual) 0.1 K/mm3 (0.0-0.8) 11/15/20 06:18 Eosinophils # (Manual) 0.0 K/mm3 (0.0-0.4) 11/15/20 06:18 Basophils # (Manual) 0.0 K/mm3 (0.0-0.1) 11/15/20 06:18 Metamyelocytes # 0.1 K/mm3 11/15/20 06:18 Myelocytes # 0.0 K/mm3 11/15/20 06:18 Promyelocytes # 0.0 K/mm3 11/15/20 06:18 Blast Cells # 0.0 K/mm3 11/15/20 06:18 WBC Morphology Not Reportable 11/15/20 06:18 Hypersegmented Neuts Not Reportable 11/15/20 06:18 Hyposegmented Neuts Not Reportable 11/15/20 06:18 Hypogranular Neuts Not Reportable 11/15/20 06:18 Smudge Cells Not Reportable 11/15/20 06:18 Toxic Granulation Not Reportable 11/15/20 06:18 Toxic Vacuolation Not Reportable 11/15/20 06:18 Dohle Bodies Not Reportable 11/15/20 06:18 Pelger-Huet Anomaly Not Reportable 11/15/20 06:18 Jamia Rods Not Reportable 11/15/20 06:18 Platelet Estimate Consistent w auto 11/15/20 06:18 Clumped Platelets Not Reportable 11/15/20 06:18 Plt Clumps, EDTA Not Reportable 11/15/20 06:18 Large Platelets Not Reportable 11/15/20 06:18 Giant Platelets Not Reportable 11/15/20 06:18 Platelet Satelliting Not Reportable 11/15/20 06:18 Plt Morphology Comment Not Reportable 11/15/20 06:18 RBC Morphology Normal 11/15/20 06:18 Dimorphic RBCs Not Reportable 11/15/20 06:18 Polychromasia Not Reportable 11/15/20 06:18 Hypochromasia Not Reportable 11/15/20 06:18 Poikilocytosis Not Reportable 11/15/20 06:18 Anisocytosis Not Reportable 11/15/20 06:18 Microcytosis Not Reportable 11/15/20 06:18 Macrocytosis Not Reportable 11/15/20 06:18 Spherocytes Not Reportable 11/15/20 06:18 Pappenheimer Bodies Not Reportable 11/15/20 06:18 Sickle Cells Not Reportable 11/15/20 06:18 Target Cells Not Reportable 11/15/20 06:18 Tear Drop Cells Not Reportable 11/15/20 06:18 Ovalocytes Not Reportable 11/15/20 06:18 Helmet Cells Not Reportable 11/15/20 06:18 Galvan-Ailey Bodies Not Reportable 11/15/20 06:18 [place] Rings Not Reportable 11/15/20 06:18 [place] Cells Not Reportable 11/15/20 06:18 Bite Cells Not Reportable 11/15/20 06:18 Crenated Cell Not Reportable 11/15/20 06:18 Elliptocytes Not Reportable 11/15/20 06:18 Acanthocytes (Spur) Not Reportable 11/15/20 06:18 Rouleaux Not Reportable 11/15/20 06:18 Hemoglobin C Crystals Not Reportable 11/15/20 06:18 Schistocytes Not Reportable 11/15/20 06:18 Malaria parasites Not Reportable 11/15/20 06:18 Felice Bodies Not Reportable 11/15/20 06:18 Hem Pathologist Commnt No 11/15/20 06:18 PT 15.3 Sec. (12.2-14.9) H 11/14/20 16:23 INR 1.21 (0.87-1.13) H 11/14/20 16:23 APTT 23.1 Sec. (24.2-36.6) L 11/14/20 16:23 D-Dimer 2876.26 ng/mlDDU (0-234) H 11/14/20 18:30 VBG pH 7.216 (7.320-7.420) L 11/14/20 16:23 Sodium 148 mmol/L (137-145) H 11/15/20 10:18 Potassium 4.0 mmol/L (3.6-5.0) 11/15/20 10:18 Chloride 116.4 mmol/L (98-107) H 11/15/20 10:18 Carbon Dioxide 19 mmol/L (22-30) L 11/15/20 10:18 Anion Gap 17 mmol/L 11/15/20 10:18 BUN 33 mg/dL (7-17) H 11/15/20 10:18 Creatinine 1.8 mg/dL (0.6-1.2) H 11/15/20 10:18 Estimated GFR 29 ml/min 11/15/20 10:18 BUN/Creatinine Ratio 18 % 11/15/20 10:18 Glucose 133 mg/dL (65-100) H 11/15/20 10:18 POC Glucose 83 mg/dL (70-105) 11/15/20 10:03 Ketones Quantitative Moderate (Negative) 11/14/20 16:23 Lactic Acid 1.60 mmol/L (0.7-2.0) 11/15/20 06:18 Calcium 9.5 mg/dL (8.4-10.2) 11/15/20 10:18 Phosphorus 1.30 mg/dL (2.5-4.5) L 11/14/20 18:22 Magnesium 2.20 mg/dL (1.7-2.3) 11/14/20 18:22 Ferritin 623.7 ng/mL (10.0-200.0) H 11/14/20 18:30 Total Bilirubin < 0.20 mg/dL (0.1-1.2) 11/15/20 06:18 Direct Bilirubin < 0.2 mg/dL (0-0.2) 11/14/20 16:23 Indirect Bilirubin 0.0 mg/dL 11/14/20 16:23 AST 27 units/L (5-40) 11/15/20 06:18 ALT 20 units/L (7-56) 11/15/20 06:18 Alkaline Phosphatase 184 units/L (35-129) H 11/15/20 06:18 Lactate Dehydrogenase 247 units/L (91-180) H 11/14/20 18:30 Troponin T < 0.010 ng/mL (0.00-0.029) 11/14/20 16:23 C-Reactive Protein 52.00 mg/dL (0.00-1.30) H 11/14/20 18:30 Total Protein 5.8 g/dL (6.3-8.2) L D 11/15/20 06:18 Albumin 2.5 g/dL (3.9-5) L 11/15/20 06:18 Albumin/Globulin Ratio 0.8 % 11/15/20 06:18 Procalcitonin 30.66 ng/mL (<0.15) 11/14/20 18:30 Urine Color Yellow (Yellow) 11/14/20 16:27 Urine Turbidity Cloudy (Clear) 11/14/20 16:27 Urine pH 5.0 (5.0-7.0) 11/14/20 16:27 Ur Specific [place] 1.022 (1.003-1.030) 11/14/20 16:27 Urine Protein 100 mg/dl mg/dL (Negative) 11/14/20 16:27 Urine Glucose (UA) >=500 mg/dL (Negative) 11/14/20 16:27 Urine Ketones 80 mg/dL (Negative) 11/14/20 16:27 Urine Blood Sm (Negative) 11/14/20 16:27 Urine Nitrite Neg (Negative) 11/14/20 16:27 Urine Bilirubin Neg (Negative) 11/14/20 16:27 Urine Urobilinogen < 2.0 mg/dL (<2.0) 11/14/20 16:27 Ur Leukocyte Esterase Neg (Negative) 11/14/20 16:27 Urine WBC (Auto) 38.0 /HPF (0.0-6.0) H 11/14/20 16:27 Urine RBC (Auto) 155.0 /HPF (0.0-6.0) 11/14/20 16:27 U Epithel Cells (Auto) < 1.0 /HPF (0-13.0) 11/14/20 16:27 Urine Bacteria (Auto) 1+ /HPF (Negative) 11/14/20 16:27 Urine Yeast (Budding) 3+ /HPF 11/14/20 16:27 Microbiology: Microbiology 11/14/20 16:23 Peripheral/Venous Blood Culture - Preliminary Culture in Progress 11/14/20 16:18 Peripheral/Venous Blood Culture - Preliminary Culture in Progress Verma/IV: Voiding Method External Female Catheter Active Medications - Current Medications Current Medications: Generic Name Dose Route Start Last Admin Trade Name Freq PRN Reason Stop Dose Admin Acetaminophen 650 mg 11/14/20 18:37 Acetaminophen 325 Mg Tab PO Q6H PRN Pain, Mild (1-3) Citalopram Hydrobromide 20 mg 11/16/20 10:00 Citalopram 20 Mg Tab PO QDAY SHAHLA Dextrose 50 ml 11/15/20 10:20 Dextrose 50% In Water (25gm) 50 Ml Syringe IV Q30MIN PRN Hypoglycemia Protocol Heparin Sodium (Porcine) 5,000 unit 11/15/20 22:00 Heparin 5,000 Unit/1 Ml Vial SUB-Q Q12HR SHAHLA Ceftriaxone Sodium 2 gm in 100 mls @ 200 mls/hr 11/14/20 19:00 11/14/20 20:28 Rocephin/Ns 2 Gm/100 Ml IV 200 mls/hr Q24H SHAHLA Administration Protocol Azithromycin 500 mg in 250 mls @ 250 mls/hr 11/14/20 19:00 11/14/20 21:05 Zithromax/Ns IV 250 mls/hr Q24H SHAHLA Administration Protocol Sodium Chloride 1,000 mls @ 125 mls/hr 11/15/20 00:45 Nacl 0.9% 1000 Ml IV DIRECT SHAHLA Potassium Chloride/Dextrose/Sod Cl 20 meq in 1,000 mls @ 75 mls/hr 11/15/20 04:00 11/15/20 03:52 D5w/Ns W/Kcl 20meq IV 100 mls/hr DIRECT SHAHLA Administration Sodium Phosphate 45 mmol/ 515 mls @ 84 mls/hr 11/15/20 11:43 Sodium Chloride IV 11/15/20 17:50 ONCE ONE Insulin Glargine 13 units 11/15/20 11:00 Insulin Glargine 100 Units/Ml SUB-Q QAMDIAB SHAHLA Insulin Human Lispro 0 unit 11/15/20 11:30 Insulin Lispro 100 Unit/Ml SUB-Q ACHS [facility] Protocol Oxycodone/Acetaminophen 1 tab 11/15/20 11:45 Oxycodone /Acetaminophen 5-325mg Tab PO Q4H PRN Pain, Moderate (4-6) Pravastatin Sodium 40 mg 11/15/20 22:00 Pravastatin 40 Mg Tab PO QHS SHAHLA Sodium Chloride 10 ml 11/14/20 22:00 11/14/20 22:15 Sodium Chloride 0.9% 10 Ml Flush Syringe IV 10 ml BID SHAHLA Administration Sodium Chloride 10 ml 11/14/20 18:33 Sodium Chloride 0.9% 10 Ml Flush Syringe IV PRN PRN LINE FLUSH Nutrition/Malnutrition Assess - Dietary Evaluation Nutrition/Malnutrition Findings: Nutrition Notes Start: 11/15/20 10:28 Freq: Status: Active Protocol: Document 11/15/20 10:28 (Rec: 11/15/20 10:35 [id number]) Nutrition Notes Need for Assessment generated from: Low BMI Initial or Follow up Brief Note Current Diagnosis Diabetes,Sepsis,Hyperlipidemia Other Pertinent Diagnosis DKA, pneu, COVID PUI, UTI, dementia, debility Current Diet Pureed Weight change and time frame Per previous visits, pt wt fluctuates between 79-43kg, unsure of UBW for pt. Subjective/Other Information Screen for low BMI. Pt is non- verbal. Pt NPO for breakfast this AM. Nutrition Intervention Follow-Up By: 11/19/20 Additional Comments FU for intakes
--- NOTE | 2020-11-15 11:56 | Consultation ---
History of Present Illness - Reason for Consult Consult date: 11/15/20 Sepsis, DKA Requesting physician: HERMAN PEREA - History of Present Illness The patient is a 55-year-old female with diabetes, hyperlipidemia, vascular dementia was brought in from the [place] [facility] due to confusion. She had COVID- 19 in February 2020. Upon evaluation in ED, she was noted to have diabetic ketoacidosis with significantly elevated blood glucose of 765 and hypernatremia. Also with acute kidney injury. Patient had a fever of 102.8 F. Infectious diseases was consulted for additional evaluation. Poor historian. Review of Systems: Limited due to AMS Past History Past Medical History: diabetes, hyperlipidemia Past Surgical History: No surgical history, Other (Reviewed) Social history: single. denies: smoking, alcohol abuse, prescription drug abuse Family history: diabetes, hypertension Medications and Allergies Allergies Allergy/AdvReac Type Severity Reaction Status Date / Time No Known Allergies Allergy Verified 02/26/20 10:24 Home Medications Medication Instructions Recorded Confirmed Last Taken Type Citalopram [Celexa] 20 mg PO QDAY 01/25/20 03/06/20 Unknown History Pravastatin [Pravachol] 40 mg PO QHS 01/25/20 03/06/20 Unknown History Acetaminophen [Mapap] 650 mg PO BID PRN 02/26/20 03/06/20 Unknown History Ascorbic Acid [Vitamin C with Chetna 500 mg PO DAILY 02/26/20 03/06/20 Unknown History Hips] Glimepiride [Amaryl] 4 mg PO QAM 02/26/20 03/06/20 Unknown History Insulin Lispro [Humalog] 5 units SQ AC 02/26/20 03/06/20 Unknown History Multivit-Min/Ferrous Fumarate 15 mg PO DAILY 02/26/20 03/06/20 Unknown History [Multivitamin with Minerals Tab] Apixaban [Eliquis] 2.5 mg PO BID #30 tablet 03/01/20 03/06/20 Unknown Rx Active Meds: Active Medications Acetaminophen (Acetaminophen 325 Mg Tab) 650 mg PO Q6H PRN PRN Reason: Pain, Mild (1-3) Citalopram Hydrobromide (Citalopram 20 Mg Tab) 20 mg PO QDAY SHAHLA Dextrose (Dextrose 50% In Water (25gm) 50 Ml Syringe) 50 ml IV Q30MIN PRN; Protocol PRN Reason: Hypoglycemia Heparin Sodium (Porcine) (Heparin 5,000 Unit/1 Ml Vial) 5,000 unit SUB-Q Q12HR [facility] Ceftriaxone Sodium (Rocephin/Ns 2 Gm/100 Ml) 2 gm in 100 mls @ 200 mls/hr IV Q24H [facility]; Protocol Last Admin: 11/14/20 20:28 Dose: 200 mls/hr Documented by: Azithromycin (Zithromax/Ns) 500 mg in 250 mls @ 250 mls/hr IV Q24H [facility]; Protocol Last Admin: 11/14/20 21:05 Dose: 250 mls/hr Documented by: Sodium Chloride (Nacl 0.9% 1000 Ml) 1,000 mls @ 125 mls/hr IV DIRECT [facility]LA Potassium Chloride/Dextrose/Sod Cl (D5w/Ns W/Kcl 20meq) 20 meq in 1,000 mls @ 75 mls/hr IV DIRECT [facility] Last Admin: 11/15/20 03:52 Dose: 100 mls/hr Documented by: Sodium Phosphate 45 mmol/ (Sodium Chloride) 515 mls @ 84 mls/hr IV ONCE ONE Stop: 11/15/20 18:37 Insulin Glargine (Insulin Glargine 100 Units/Ml) 13 units SUB-Q QAMDIAB [facility]LA Insulin Human Lispro (Insulin Lispro 100 Unit/Ml) 0 unit SUB-Q ACHS SHAHLA; Protocol Oxycodone/Acetaminophen (Oxycodone /Acetaminophen 5-325mg Tab) 1 tab PO Q4H PRN PRN Reason: Pain, Moderate (4-6) Pravastatin Sodium (Pravastatin 40 Mg Tab) 40 mg PO QHS [facility] Sodium Chloride (Sodium Chloride 0.9% 10 Ml Flush Syringe) 10 ml IV BID [facility] Last Admin: 11/14/20 22:15 Dose: 10 ml Documented by: Sodium Chloride (Sodium Chloride 0.9% 10 Ml Flush Syringe) 10 ml IV PRN PRN PRN Reason: LINE FLUSH Physical Examination - Physical Exam Narrative exam: Physical Exam: Constitutional: Awake, does not respond well Head, Ears, Nose: Normocephalic, atraumatic. External ears, nose normal Eyes: Conjunctivae/corneas clear. No icterus. No ptosis. Neck: Supple, no meningeal signs Cardiovascular: S1, S2 normal. Respiratory: Good air entry, clear to auscultation bilaterally GI: Soft, non-tender; bowel sounds normal. No peritoneal signs Musculoskeletal: No pedal edema, no cyanosis. Skin: No rash or abscess Hem/Lymphatic: No palpable cervical or supraclavicular nodes. No lymphangitis Psych: Awake, no agitation Neurological: Awake, noncommunicative at this time - Constitutional Vitals: Vital Signs Temp Pulse Resp BP Pulse Ox 100.4 F H 104 H 25 H 105/65 95 11/15/20 03:51 11/15/20 11:05 11/15/20 11:05 11/15/20 11:05 11/15/20 11:05 Temperature -Last 24 Hours Temperature 100.4 F Temperature 99.3 F Temperature 99.6 F Temperature 97.6 F Temperature 102.8 F Results - Labs CBC & Chem 7: 11/15/20 06:18 11/15/20 10:18 Labs: Abnormal lab results 11/14/20 11/14/20 11/14/20 Range/Units 16:23 16:23 16:23 WBC 14.5 H (4.5-11.0) K/mm3 RBC 3.48 L (3.65-5.03) M/mm3 Hgb (10.1-14.3) gm/dl Hct (30.3-42.9) % MCV 101 H (79-97) fl RDW (13.2-15.2) % Seg Neuts % (Manual) 92.0 H (40.0-70.0) % Lymphocytes % (Manual) 5.0 L (13.4-35.0) % Seg Neutrophils # Man 13.3 H (1.8-7.7) K/mm3 Lymphocytes # (Manual) 0.7 L (1.2-5.4) K/mm3 PT 15.3 H (12.2-14.9) Sec. INR 1.21 H (0.87-1.13) APTT 23.1 L (24.2-36.6) Sec. D-Dimer (0-234) ng/mlDDU VBG pH (7.320-7.420) Sodium (137-145) mmol/L Potassium (3.6-5.0) mmol/L Chloride (98-107) mmol/L Carbon Dioxide (22-30) mmol/L BUN (7-17) mg/dL Creatinine (0.6-1.2) mg/dL Glucose (65-100) mg/dL POC Glucose (70-105) mg/dL Hemoglobin A1c (4-6) % Lactic Acid 7.50 H* (0.7-2.0) mmol/L Calcium (8.4-10.2) mg/dL Phosphorus (2.5-4.5) mg/dL Ferritin (10.0-200.0) ng/mL Alkaline Phosphatase (35-129) units/L Lactate Dehydrogenase (91-180) units/L C-Reactive Protein (0.00-1.30) mg/dL Total Protein (6.3-8.2) g/dL Albumin (3.9-5) g/dL Urine WBC (Auto) (0.0-6.0) /HPF 11/14/20 11/14/20 11/14/20 Range/Units 16:23 16:23 16:27 WBC (4.5-11.0) K/mm3 RBC (3.65-5.03) M/mm3 Hgb (10.1-14.3) gm/dl Hct (30.3-42.9) % MCV (79-97) fl RDW (13.2-15.2) % Seg Neuts % (Manual) (40.0-70.0) % Lymphocytes % (Manual) (13.4-35.0) % Seg Neutrophils # Man (1.8-7.7) K/mm3 Lymphocytes # (Manual) (1.2-5.4) K/mm3 PT (12.2-14.9) Sec. INR (0.87-1.13) APTT (24.2-36.6) Sec. D-Dimer (0-234) ng/mlDDU VBG pH 7.216 L (7.320-7.420) Sodium 166 H* (137-145) mmol/L Potassium (3.6-5.0) mmol/L Chloride 120.8 H (98-107) mmol/L Carbon Dioxide 6 L* (22-30) mmol/L BUN 36 H (7-17) mg/dL Creatinine 1.9 H (0.6-1.2) mg/dL Glucose 765 H* (65-100) mg/dL POC Glucose (70-105) mg/dL Hemoglobin A1c (4-6) % Lactic Acid (0.7-2.0) mmol/L Calcium 11.4 H (8.4-10.2) mg/dL Phosphorus (2.5-4.5) mg/dL Ferritin (10.0-200.0) ng/mL Alkaline Phosphatase 259 H (35-129) units/L Lactate Dehydrogenase (91-180) units/L C-Reactive Protein (0.00-1.30) mg/dL Total Protein (6.3-8.2) g/dL Albumin 3.3 L (3.9-5) g/dL Urine WBC (Auto) 38.0 H (0.0-6.0) /HPF 11/14/20 11/14/20 11/14/20 Range/Units 18:22 18:22 18:22 WBC (4.5-11.0) K/mm3 RBC (3.65-5.03) M/mm3 Hgb (10.1-14.3) gm/dl Hct (30.3-42.9) % MCV (79-97) fl RDW (13.2-15.2) % Seg Neuts % (Manual) (40.0-70.0) % Lymphocytes % (Manual) (13.4-35.0) % Seg Neutrophils # Man (1.8-7.7) K/mm3 Lymphocytes # (Manual) (1.2-5.4) K/mm3 PT (12.2-14.9) Sec. INR (0.87-1.13) APTT (24.2-36.6) Sec. D-Dimer (0-234) ng/mlDDU VBG pH (7.320-7.420) Sodium (137-145) mmol/L Potassium (3.6-5.0) mmol/L Chloride (98-107) mmol/L Carbon Dioxide 11 L (22-30) mmol/L BUN 32 H (7-17) mg/dL Creatinine 1.5 H (0.6-1.2) mg/dL Glucose 695 H* (65-100) mg/dL POC Glucose (70-105) mg/dL Hemoglobin A1c (4-6) % Lactic Acid 2.60 H* (0.7-2.0) mmol/L Calcium (8.4-10.2) mg/dL Phosphorus 1.30 L (2.5-4.5) mg/dL Ferritin (10.0-200.0) ng/mL Alkaline Phosphatase (35-129) units/L Lactate Dehydrogenase (91-180) units/L C-Reactive Protein (0.00-1.30) mg/dL Total Protein (6.3-8.2) g/dL Albumin (3.9-5) g/dL Urine WBC (Auto) (0.0-6.0) /HPF 11/14/20 11/14/20 11/14/20 Range/Units 18:30 18:30 18:30 WBC (4.5-11.0) K/mm3 RBC (3.65-5.03) M/mm3 Hgb (10.1-14.3) gm/dl Hct (30.3-42.9) % MCV (79-97) fl RDW (13.2-15.2) % Seg Neuts % (Manual) (40.0-70.0) % Lymphocytes % (Manual) (13.4-35.0) % Seg Neutrophils # Man (1.8-7.7) K/mm3 Lymphocytes # (Manual) (1.2-5.4) K/mm3 PT (12.2-14.9) Sec. INR (0.87-1.13) APTT (24.2-36.6) Sec. D-Dimer 2876.26 H (0-234) ng/mlDDU VBG pH (7.320-7.420) Sodium (137-145) mmol/L Potassium (3.6-5.0) mmol/L Chloride (98-107) mmol/L Carbon Dioxide (22-30) mmol/L BUN (7-17) mg/dL Creatinine (0.6-1.2) mg/dL Glucose (65-100) mg/dL POC Glucose (70-105) mg/dL Hemoglobin A1c (4-6) % Lactic Acid (0.7-2.0) mmol/L Calcium (8.4-10.2) mg/dL Phosphorus (2.5-4.5) mg/dL Ferritin 623.7 H (10.0-200.0) ng/mL Alkaline Phosphatase (35-129) units/L Lactate Dehydrogenase 247 H (91-180) units/L C-Reactive Protein 52.00 H (0.00-1.30) mg/dL Total Protein (6.3-8.2) g/dL Albumin (3.9-5) g/dL Urine WBC (Auto) (0.0-6.0) /HPF 11/14/20 11/14/20 11/14/20 Range/Units 20:23 23:08 23:08 WBC (4.5-11.0) K/mm3 RBC (3.65-5.03) M/mm3 Hgb (10.1-14.3) gm/dl Hct (30.3-42.9) % MCV (79-97) fl RDW (13.2-15.2) % Seg Neuts % (Manual) (40.0-70.0) % Lymphocytes % (Manual) (13.4-35.0) % Seg Neutrophils # Man (1.8-7.7) K/mm3 Lymphocytes # (Manual) (1.2-5.4) K/mm3 PT (12.2-14.9) Sec. INR (0.87-1.13) APTT (24.2-36.6) Sec. D-Dimer (0-234) ng/mlDDU VBG pH (7.320-7.420) Sodium (137-145) mmol/L Potassium 2.6 L* D (3.6-5.0) mmol/L Chloride 109.4 H (98-107) mmol/L Carbon Dioxide 8 L* 10 L (22-30) mmol/L BUN 33 H 32 H (7-17) mg/dL Creatinine 1.6 H < 0.2 L D (0.6-1.2) mg/dL Glucose 753 H* 509 H* (65-100) mg/dL POC Glucose (70-105) mg/dL Hemoglobin A1c (4-6) % Lactic Acid 5.70 H* (0.7-2.0) mmol/L Calcium (8.4-10.2) mg/dL Phosphorus (2.5-4.5) mg/dL Ferritin (10.0-200.0) ng/mL Alkaline Phosphatase (35-129) units/L Lactate Dehydrogenase (91-180) units/L C-Reactive Protein (0.00-1.30) mg/dL Total Protein (6.3-8.2) g/dL Albumin (3.9-5) g/dL Urine WBC (Auto) (0.0-6.0) /HPF 11/14/20 11/15/20 11/15/20 Range/Units 23:14 00:01 00:54 WBC (4.5-11.0) K/mm3 RBC (3.65-5.03) M/mm3 Hgb (10.1-14.3) gm/dl Hct (30.3-42.9) % MCV (79-97) fl RDW (13.2-15.2) % Seg Neuts % (Manual) (40.0-70.0) % Lymphocytes % (Manual) (13.4-35.0) % Seg Neutrophils # Man (1.8-7.7) K/mm3 Lymphocytes # (Manual) (1.2-5.4) K/mm3 PT (12.2-14.9) Sec. INR (0.87-1.13) APTT (24.2-36.6) Sec. D-Dimer (0-234) ng/mlDDU VBG pH (7.320-7.420) Sodium (137-145) mmol/L Potassium (3.6-5.0) mmol/L Chloride (98-107) mmol/L Carbon Dioxide (22-30) mmol/L BUN (7-17) mg/dL Creatinine (0.6-1.2) mg/dL Glucose (65-100) mg/dL POC Glucose 427 H 375 H 280 H (70-105) mg/dL Hemoglobin A1c (4-6) % Lactic Acid (0.7-2.0) mmol/L Calcium (8.4-10.2) mg/dL Phosphorus (2.5-4.5) mg/dL Ferritin (10.0-200.0) ng/mL Alkaline Phosphatase (35-129) units/L Lactate Dehydrogenase (91-180) units/L C-Reactive Protein (0.00-1.30) mg/dL Total Protein (6.3-8.2) g/dL Albumin (3.9-5) g/dL Urine WBC (Auto) (0.0-6.0) /HPF 11/15/20 11/15/20 11/15/20 Range/Units 01:58 02:56 04:53 WBC (4.5-11.0) K/mm3 RBC (3.65-5.03) M/mm3 Hgb (10.1-14.3) gm/dl Hct (30.3-42.9) % MCV (79-97) fl RDW (13.2-15.2) % Seg Neuts % (Manual) (40.0-70.0) % Lymphocytes % (Manual) (13.4-35.0) % Seg Neutrophils # Man (1.8-7.7) K/mm3 Lymphocytes # (Manual) (1.2-5.4) K/mm3 PT (12.2-14.9) Sec. INR (0.87-1.13) APTT (24.2-36.6) Sec. D-Dimer (0-234) ng/mlDDU VBG pH (7.320-7.420) Sodium (137-145) mmol/L Potassium (3.6-5.0) mmol/L Chloride (98-107) mmol/L Carbon Dioxide (22-30) mmol/L BUN (7-17) mg/dL Creatinine (0.6-1.2) mg/dL Glucose (65-100) mg/dL POC Glucose 191 H 124 H 140 H (70-105) mg/dL Hemoglobin A1c (4-6) % Lactic Acid (0.7-2.0) mmol/L Calcium (8.4-10.2) mg/dL Phosphorus (2.5-4.5) mg/dL Ferritin (10.0-200.0) ng/mL Alkaline Phosphatase (35-129) units/L Lactate Dehydrogenase (91-180) units/L C-Reactive Protein (0.00-1.30) mg/dL Total Protein (6.3-8.2) g/dL Albumin (3.9-5) g/dL Urine WBC (Auto) (0.0-6.0) /HPF 11/15/20 11/15/20 11/15/20 Range/Units 06:18 06:18 06:18 WBC (4.5-11.0) K/mm3 RBC 2.74 L (3.65-5.03) M/mm3 Hgb 8.9 L (10.1-14.3) gm/dl Hct 26.1 L D (30.3-42.9) % MCV (79-97) fl RDW 12.8 L (13.2-15.2) % Seg Neuts % (Manual) 81.0 H (40.0-70.0) % Lymphocytes % (Manual) (13.4-35.0) % Seg Neutrophils # Man 8.7 H (1.8-7.7) K/mm3 Lymphocytes # (Manual) (1.2-5.4) K/mm3 PT (12.2-14.9) Sec. INR (0.87-1.13) APTT (24.2-36.6) Sec. D-Dimer (0-234) ng/mlDDU VBG pH (7.320-7.420) Sodium 149 H 149 H (137-145) mmol/L Potassium (3.6-5.0) mmol/L Chloride 116.2 H 117.4 H (98-107) mmol/L Carbon Dioxide 20 L D 20 L (22-30) mmol/L BUN 33 H 32 H (7-17) mg/dL Creatinine 1.6 H D 1.6 H (0.6-1.2) mg/dL Glucose 236 H 231 H (65-100) mg/dL POC Glucose (70-105) mg/dL Hemoglobin A1c (4-6) % Lactic Acid (0.7-2.0) mmol/L Calcium (8.4-10.2) mg/dL Phosphorus (2.5-4.5) mg/dL Ferritin (10.0-200.0) ng/mL Alkaline Phosphatase 184 H (35-129) units/L Lactate Dehydrogenase (91-180) units/L C-Reactive Protein (0.00-1.30) mg/dL Total Protein 5.8 L D (6.3-8.2) g/dL Albumin 2.5 L (3.9-5) g/dL Urine WBC (Auto) (0.0-6.0) /HPF 11/15/20 11/15/20 11/15/20 Range/Units 06:24 10:15 10:18 WBC (4.5-11.0) K/mm3 RBC (3.65-5.03) M/mm3 Hgb (10.1-14.3) gm/dl Hct (30.3-42.9) % MCV (79-97) fl RDW (13.2-15.2) % Seg Neuts % (Manual) (40.0-70.0) % Lymphocytes % (Manual) (13.4-35.0) % Seg Neutrophils # Man (1.8-7.7) K/mm3 Lymphocytes # (Manual) (1.2-5.4) K/mm3 PT (12.2-14.9) Sec. INR (0.87-1.13) APTT (24.2-36.6) Sec. D-Dimer (0-234) ng/mlDDU VBG pH (7.320-7.420) Sodium 148 H (137-145) mmol/L Potassium (3.6-5.0) mmol/L Chloride 116.4 H (98-107) mmol/L Carbon Dioxide 19 L (22-30) mmol/L BUN 33 H (7-17) mg/dL Creatinine 1.8 H (0.6-1.2) mg/dL Glucose 133 H (65-100) mg/dL POC Glucose 223 H (70-105) mg/dL Hemoglobin A1c 10.8 H (4-6) % Lactic Acid (0.7-2.0) mmol/L Calcium (8.4-10.2) mg/dL Phosphorus (2.5-4.5) mg/dL Ferritin (10.0-200.0) ng/mL Alkaline Phosphatase (35-129) units/L Lactate Dehydrogenase (91-180) units/L C-Reactive Protein (0.00-1.30) mg/dL Total Protein (6.3-8.2) g/dL Albumin (3.9-5) g/dL Urine WBC (Auto) (0.0-6.0) /HPF - Imaging and Cardiology Chest x-ray: report reviewed, image reviewed (minimal patchy infiltrates) Assessment and Plan Cultures: 11/14/2020 blood culture: In process A/P: 55-year-old female with diabetes, hyperlipidemia, vascular dementia was brought in from the [place] [facility] due to confusion. She had COVID-19 in February 2020, now with DKA and: #Sepsis: Secondary to pneumonia versus UTI. Chest x-ray with patchy bilateral infiltrates. Also rule out COVID-19. Procalcitonin is 30.66. #UTI: UA with pyuria. Admitted with DKA. Follow-up urine culture. #Diabetic ketoacidosis: On insulin drip, in ICU. #Acute encephalopathy: Likely metabolic, sodium very high on admission. Also, reportedly with underlying vascular dementia. #RACH: Renally dose antibiotics. Recs: -Continue ceftriaxone and azithromycin -Follow-up blood and urine culture -Follow-up COVID-19 PCR, even if positive, she is on room air, hold off on stero ids / remdesivir Krystina Townsend MD, FACP [facility] ([facility] O: [phone] F: [phone]
[2020-11-15] MEDS: INSULIN LISPRO 100 UNIT/ML SUB-Q SCH ×3 (12:29→23:24)
[2020-11-15] MEDS: INSULIN GLARGINE 100 UNITS/ML SUB-Q SCH (12:29)
[2020-11-15] MEDS ORDERED: SODIUM PHOSPHATE 45 MMOL in SODIUM CHLORIDE 0.9% 500 ML 500 ML IV ONE (12:30)
--- NOTE | 2020-11-15 12:45 | Consultation ---
History of Present Illness Consult date: 11/15/20 Requesting physician: GUILHERME JONES Reason for consult: other (Sepsis; DKA) History of present illness: PULMONARY/CCM CONSULT NOTE (Full dictation # [id number]) Please see dictated notes for full details Past History Past Medical History: diabetes, hyperlipidemia Past Surgical History: No surgical history, Other (Reviewed) Social history: single. denies: smoking, alcohol abuse, prescription drug abuse Family history: diabetes, hypertension Medications and Allergies Allergies Allergy/AdvReac Type Severity Reaction Status Date / Time No Known Allergies Allergy Verified 02/26/20 10:24 Home Medications Medication Instructions Recorded Confirmed Last Taken Type Citalopram [Celexa] 20 mg PO QDAY 01/25/20 03/06/20 Unknown History Pravastatin [Pravachol] 40 mg PO QHS 01/25/20 03/06/20 Unknown History Acetaminophen [Mapap] 650 mg PO BID PRN 02/26/20 03/06/20 Unknown History Ascorbic Acid [Vitamin C with Chetna 500 mg PO DAILY 02/26/20 03/06/20 Unknown History Hips] Glimepiride [Amaryl] 4 mg PO QAM 02/26/20 03/06/20 Unknown History Insulin Lispro [Humalog] 5 units SQ AC 02/26/20 03/06/20 Unknown History Multivit-Min/Ferrous Fumarate 15 mg PO DAILY 02/26/20 03/06/20 Unknown History [Multivitamin with Minerals Tab] Apixaban [Eliquis] 2.5 mg PO BID #30 tablet 03/01/20 03/06/20 Unknown Rx Active Meds: Active Medications Acetaminophen (Acetaminophen 325 Mg Tab) 650 mg PO Q6H PRN PRN Reason: Pain, Mild (1-3) Citalopram Hydrobromide (Citalopram 20 Mg Tab) 20 mg PO QDAY SHAHLA Dextrose (Dextrose 50% In Water (25gm) 50 Ml Syringe) 50 ml IV Q30MIN PRN; Protocol PRN Reason: Hypoglycemia Heparin Sodium (Porcine) (Heparin 5,000 Unit/1 Ml Vial) 5,000 unit SUB-Q Q12HR [facility] Ceftriaxone Sodium (Rocephin/Ns 2 Gm/100 Ml) 2 gm in 100 mls @ 200 mls/hr IV Q24H [facility]; Protocol Last Admin: 11/14/20 20:28 Dose: 200 mls/hr Documented by: Azithromycin (Zithromax/Ns) 500 mg in 250 mls @ 250 mls/hr IV Q24H [facility]; Protocol Last Admin: 11/14/20 21:05 Dose: 250 mls/hr Documented by: Sodium Chloride (Nacl 0.9% 1000 Ml) 1,000 mls @ 125 mls/hr IV DIRECT SHAHLA Potassium Chloride/Dextrose/Sod Cl (D5w/Ns W/Kcl 20meq) 20 meq in 1,000 mls @ 75 mls/hr IV DIRECT SHAHLA Last Admin: 11/15/20 03:52 Dose: 100 mls/hr Documented by: Sodium Phosphate 45 mmol/ (Sodium Chloride) 515 mls @ 84 mls/hr IV ONCE ONE Stop: 11/15/20 18:37 Insulin Glargine (Insulin Glargine 100 Units/Ml) 13 units SUB-Q QAMDIAB SHAHLA Insulin Human Lispro (Insulin Lispro 100 Unit/Ml) 0 unit SUB-Q ACHS [facility]; Protocol Oxycodone/Acetaminophen (Oxycodone /Acetaminophen 5-325mg Tab) 1 tab PO Q4H PRN PRN Reason: Pain, Moderate (4-6) Pravastatin Sodium (Pravastatin 40 Mg Tab) 40 mg PO QHS [facility] Sodium Chloride (Sodium Chloride 0.9% 10 Ml Flush Syringe) 10 ml IV BID [facility] Last Admin: 11/14/20 22:15 Dose: 10 ml Documented by: Sodium Chloride (Sodium Chloride 0.9% 10 Ml Flush Syringe) 10 ml IV PRN PRN PRN Reason: LINE FLUSH Physical Examination Vital signs: Vital Signs Pulse Resp Pulse Ox 162 H 30 H 95 11/14/20 15:40 11/14/20 15:40 11/14/20 15:40 Results - Laboratory Findings CBC and BMP: 11/15/20 06:18 11/15/20 10:18 PT/INR, D-dimer PT 15.3 Sec. (12.2-14.9) H 11/14/20 16:23 INR 1.21 (0.87-1.13) H 11/14/20 16:23 D-Dimer 2876.26 ng/mlDDU (0-234) H 11/14/20 18:30 Abnormal lab findings: Abnormal Labs 11/14/20 11/14/2011/14/21 16:23 16:23 16:23 WBC 14.5 H RBC 3.48 L Hgb Hct MCV 101 H RDW Seg Neuts % (Manual) 92.0 H Lymphocytes % (Manual) 5.0 L Seg Neutrophils # Man 13.3 H Lymphocytes # (Manual) 0.7 L PT 15.3 H INR 1.21 H APTT 23.1 L D-Dimer VBG pH Sodium Potassium Chloride Carbon Dioxide BUN Creatinine Glucose POC Glucose Hemoglobin A1c Lactic Acid 7.50 H* Calcium Phosphorus Ferritin Alkaline Phosphatase Lactate Dehydrogenase C-Reactive Protein Total Protein Albumin Urine WBC (Auto) 11/14/20 11/14/20 11/14/20 16:23 16:23 16:27 WBC RBC Hgb Hct MCV RDW Seg Neuts % (Manual) Lymphocytes % (Manual) Seg Neutrophils # Man Lymphocytes # (Manual) PT INR APTT D-Dimer VBG pH 7.216 L Sodium 166 H* Potassium Chloride 120.8 H Carbon Dioxide 6 L* BUN 36 H Creatinine 1.9 H Glucose 765 H* POC Glucose Hemoglobin A1c Lactic Acid Calcium 11.4 H Phosphorus Ferritin Alkaline Phosphatase 259 H Lactate Dehydrogenase C-Reactive Protein Total Protein Albumin 3.3 L Urine WBC (Auto) 38.0 H 11/14/20 11/14/20 11/14/20 18:22 18:22 18:22 WBC RBC Hgb Hct MCV RDW Seg Neuts % (Manual) Lymphocytes % (Manual) Seg Neutrophils # Man Lymphocytes # (Manual) PT INR APTT D-Dimer VBG pH Sodium Potassium Chloride Carbon Dioxide 11 L BUN 32 H Creatinine 1.5 H Glucose 695 H* POC Glucose Hemoglobin A1c Lactic Acid 2.60 H* Calcium Phosphorus 1.30 L Ferritin Alkaline Phosphatase Lactate Dehydrogenase C-Reactive Protein Total Protein Albumin Urine WBC (Auto) 11/14/20 11/14/20 11/14/20 18:30 18:30 18:30 WBC RBC Hgb Hct MCV RDW Seg Neuts % (Manual) Lymphocytes % (Manual) Seg Neutrophils # Man Lymphocytes # (Manual) PT INR APTT D-Dimer 2876.26 H VBG pH Sodium Potassium Chloride Carbon Dioxide BUN Creatinine Glucose POC Glucose Hemoglobin A1c Lactic Acid Calcium Phosphorus Ferritin 623.7 H Alkaline Phosphatase Lactate Dehydrogenase 247 H C-Reactive Protein 52.00 H Total Protein Albumin Urine WBC (Auto) 0411/14/20 11/14/20 20:23 23:08 23:08 WBC RBC Hgb Hct MCV RDW Seg Neuts % (Manual) Lymphocytes % (Manual) Seg Neutrophils # Man Lymphocytes # (Manual) PT INR APTT D-Dimer VBG pH Sodium Potassium 2.6 L* D Chloride 109.4 H Carbon Dioxide 8 L* 10 L BUN 33 H 32 H Creatinine 1.6 H < 0.2 L D Glucose 753 H* 509 H* POC Glucose Hemoglobin A1c Lactic Acid 5.70 H* Calcium Phosphorus Ferritin Alkaline Phosphatase Lactate Dehydrogenase C-Reactive Protein Total Protein Albumin Urine WBC (Auto) 11/14/20 11/15/20 11/15/20 23:14 00:01 00:54 WBC RBC Hgb Hct MCV RDW Seg Neuts % (Manual) Lymphocytes % (Manual) Seg Neutrophils # Man Lymphocytes # (Manual) PT INR APTT D-Dimer VBG pH Sodium Potassium Chloride Carbon Dioxide BUN Creatinine Glucose POC Glucose 427 H 375 H 280 H Hemoglobin A1c Lactic Acid Calcium Phosphorus Ferritin Alkaline Phosphatase Lactate Dehydrogenase C-Reactive Protein Total Protein Albumin Urine WBC (Auto) 11/15/20 11/15/20 11/15/20 01:58 02:56 04:53 WBC RBC Hgb Hct MCV RDW Seg Neuts % (Manual) Lymphocytes % (Manual) Seg Neutrophils # Man Lymphocytes # (Manual) PT INR APTT D-Dimer VBG pH Sodium Potassium Chloride Carbon Dioxide BUN Creatinine Glucose POC Glucose 191 H 124 H 140 H Hemoglobin A1c Lactic Acid Calcium Phosphorus Ferritin Alkaline Phosphatase Lactate Dehydrogenase C-Reactive Protein Total Protein Albumin Urine WBC (Auto) 11/15/20 11/15/20 11/15/20 06:18 06:18 06:18 WBC RBC 2.74 L Hgb 8.9 L Hct 26.1 L D MCV RDW 12.8 L Seg Neuts % (Manual) 81.0 H Lymphocytes % (Manual) Seg Neutrophils # Man 8.7 H Lymphocytes # (Manual) PT INR APTT D-Dimer VBG pH Sodium 149 H 149 H Potassium Chloride 116.2 H 117.4 H Carbon Dioxide 20 L D 20 L BUN 33 H 32 H Creatinine 1.6 H D 1.6 H Glucose 236 H 231 H POC Glucose Hemoglobin A1c Lactic Acid Calcium Phosphorus Ferritin Alkaline Phosphatase 184 H Lactate Dehydrogenase C-Reactive Protein Total Protein 5.8 L D Albumin 2.5 L Urine WBC (Auto) 11/15/20 11/15/20 11/15/20 06:24 10:15 10:18 WBC RBC Hgb Hct MCV RDW Seg Neuts % (Manual) Lymphocytes % (Manual) Seg Neutrophils # Man Lymphocytes # (Manual) PT INR APTT D-Dimer VBG pH Sodium 148 H Potassium Chloride 116.4 H Carbon Dioxide 19 L BUN 33 H Creatinine 1.8 H Glucose 133 H POC Glucose 223 H Hemoglobin A1c 10.8 H Lactic Acid Calcium Phosphorus Ferritin Alkaline Phosphatase Lactate Dehydrogenase C-Reactive Protein Total Protein Albumin Urine WBC (Auto)
--- NOTE | 2020-11-15 13:57 | Electrocardiograph Report ---
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
--- NOTE | 2020-11-15 15:36 | Vascular Lab Report ---
DUPLEX DOPPLER LOWER EXTREMITY VEINS, BILATERAL INDICATION / CLINICAL INFORMATION: elevated ddimer. TECHNIQUE: Duplex doppler imaging was performed through the veins of both lower extremities using venous patricia gonzalo and other maneuvers. COMPARISON: None available. FINDINGS: RIGHT COMMON FEMORAL VEIN: Negative. RIGHT FEMORAL VEIN: Negative. RIGHT POPLITEAL VEIN: Negative. RIGHT CALF VEINS: Negative. LEFT COMMON FEMORAL VEIN: Negative. LEFT FEMORAL VEIN: Negative. LEFT POPLITEAL VEIN: Negative. LEFT CALF VEINS: Negative. ADDITIONAL FINDINGS: None. IMPRESSION: 1. No sonographic evidence for DVT in either lower extremity. Signer Name: Mushtaq Britt MD Signed: 11/15/2020 3:32 PM Workstation Name: [id number]
[2020-11-15 19:04] LABS: Calcium 8.7 mg/dL (8.4-10.2)
[2020-11-15] MEDS: AZITHROMYCIN/NS 500 MG/250 ML 500 MG/250 ML BAG IV SCH ×2 (19:47→20:41)
[2020-11-15] MEDS: oxyCODONE /ACETAMINOPHEN 5-325MG TAB PO PRN (19:56)
[2020-11-15] MEDS: cefTRIAXone/NS 2 GM/100 ML 2 GM/100 ML BAG IV SCH (20:00)
[2020-11-15] MEDS: HEPARIN 5,000 UNIT/1 ML VIAL SUB-Q SCH (21:55)
[2020-11-15] MEDS: PRAVASTATIN 40 MG TAB PO SCH (22:45)
--- NOTE | 2020-11-16 08:18 | Consultation ---
DATE OF CONSULTATION: 11/15/2020 PULMONARY CRITICAL CARE CONSULT NOTE CONSULTING PHYSICIAN: Dr. Francesco Khalil. REASON FOR CONSULTATION: Sepsis, diabetic ketoacidosis. CHIEF COMPLAINT AND HISTORY OF PRESENT ILLNESS: The patient is a 55-year-old female, retirement resident at [facility], I believe, with a history of vascular dementia, debility and diabetes, presented into the emergency room with what was described essentially as an acute on chronic encephalopathy. Her blood sugars were high. EMS was called. She was brought to the emergency room. In the emergency room, she was diagnosed with sepsis and diabetic ketoacidosis and we were asked to assist with management. When I stopped by to see her, she was resting in bed, really difficult to get any history from her because of the cognitive dysfunction. I do not have any history of vomiting or overt aspiration. I do not have any history of any open wounds or sores in her body. She is not a current tobacco abuser, remote history is unknown. Unfortunately, the above is as much of the history of presentation as I know. PAST MEDICAL HISTORY: Again, vascular dementia, adult failure to thrive, diabetes, hyperlipidemia. PAST SURGICAL HISTORY: Unknown. MEDICATIONS: She was on at the time I stopped by to see her, according to the medication administration record included the following: Tylenol 650 mg p.o. q.6 hours p.r.n. mild pain or fever, Zithromax 500 mg IV daily, Rocephin 2 grams IV daily, Celexa 20 mg p.o. daily, Pepcid 20 mg p.o. daily, heparin 5000 units subQ q.12 hours, IV insulin drip was going on, I believe 2 units per hour. Percocet 1 tablet p.o. q.4 hours p.r.n. moderate pain. Pravachol 40 mg p.o. at bedtime. ALLERGIES: No known drug allergies. DIET: Cachectic, chronically ill-looking lady, acute weight loss or gain history is unknown. SOCIAL HISTORY: alf resident. No current alcohol, tobacco or illicit drug use or abuse. FAMILY HISTORY: Otherwise unknown. REVIEW OF SYSTEMS: Unobtainable secondary to patient's medical and mental condition. Since she has been here, no gross hematochezia or melena, no gross hematuria, no hematemesis, no hemoptysis, no palpitations. Review of systems otherwise unobtainable or as in the body of the history above. No seizures witnessed. PHYSICAL EXAMINATION: VITAL SIGNS: At presentation in the emergency room, review of vital signs shows that she had a fever of 102.8 degrees Fahrenheit, pulse of 162, respiratory rate of 30, blood pressure 175/88, O2 sats were 95%, inspired oxygen concentration was not recorded. When I stopped by to see her, O2 sats were 98% on 2 liters nasal cannula. GENERAL: She is a chronically ill-looking female. Normocephalic, atraumatic. Resting in bed with mildly increased respiratory effort at rest. HEENT: Anicteric. No conjunctival erythema. Oropharynx was dry. Very poor oral dentition. NECK: No gross jugular venous distention, no thyromegaly. Grossly, there were no palpable lymph nodes in supraclavicular, submandibular lymph node chains. LUNGS: Auscultation of both lung ibanez revealed diminished bilateral breath sounds, however clear bilaterally. No wheezing. HEART: Sounds 1 and 2 are heard. Regular rate and rhythm at time of my evaluation without rubs or murmurs. ABDOMEN: Soft, flat, bowel sounds are positive, nontender. No palpable hepatosplenomegaly. EXTREMITIES: Without overt digital clubbing, no cyanosis, no pedal edema. Pedal pulses are 2+ bilaterally. NEUROLOGIC: Pupils are equal, round, about 4 mm, reactive to light. Extraocular muscle movements appeared intact. She has spontaneous movements of all 4 extremities, but not to command. She had very significant cognitive dysfunction. SKIN: Poor turgor in the areas examined without overt cellulitis or rash. Please see the wound care nurses' notes for full description of her skin. PSYCHIATRIC: Mood and affect were at best could be described as anxious. She had a very poor judgment and insight. LABORATORY DATA: For my review are as follows: Admission white cell count 14,500, hemoglobin 10.9, hematocrit 35.3, platelet count 294. No band forms on the manual differential. INR was 1.21. D-dimer is significantly elevated at 2876. Venous blood gas showed a pH of 7.22. Serum sodium on admission was 138, potassium 3.6, chloride 103, bicarbonate 11, BUN 32, creatinine 1.5, glucose 695. Lactic acid level was 2.6, it peaked at 5.7, now within normal limits. Phosphorus 1.3, magnesium within normal limits. Ferritin was up at 624. Liver function test within normal limits. Troponin within normal limits. CRP was 52. Procalcitonin was 30. Urinalysis negative for nitrites and leukocyte esterase. She did have 38 white cells per high power field. Two sets of blood cultures, urine cultures, no growth to date at this time. Chest x-ray, she has some degree of scoliosis. She has an infiltrate in particular in the left lower lobe, which appears to be new. No gross pneumothorax, no gross bony fracture. Bilateral lower extremity Dopplers have been done, pending. ASSESSMENT: 1. Acute hypoxemic respiratory failure. 2. Severe sepsis. 3. Diabetic ketoacidosis. 4. Acute kidney injury. 5. Pneumonia. 6. Acute on chronic toxic metabolic encephalopathy. 7. The patient under investigation for COVID-19 infection. 8. Possible urinary tract infection. 9. Adult failure to thrive. 10. History of diabetes. 11. History of hyperlipidemia. PLAN: Her gap is closed. She has been transitioned off IV insulin therapy. She will benefit from a swallow evaluation if she fails a dysphagia screen, especially with infiltrates being in the left lower lobe basilar. I will go ahead and order a speech evaluation. In the meantime, oxygen will be weaned to keep sats greater than or equal to about 92%. We will follow the COVID-19 result. She will be kept in contact in airborne isolation in the short time. Glycemic control at this point will be for a target blood glucose less than 180. I do agree with community-acquired pneumonia therapy with Rocephin and Zithromax. We will trend the lactic acid levels, procalcitonin level, CRP levels as needed. CLINICAL DECISION MAKING: Especially if she comes back positive for COVID-19 infection, we will also trend inflammatory markers to help guide clinical decision making. Electrolytes will be monitored and corrected as necessary. She is receiving sodium phosphate right now, I believe 45 millimoles to correct her phosphorus levels. I will follow the microbiology studies. Infectious disease consultation will be at the behest of the attending physician and I believe that has been placed. I will defer to them going forward from that standpoint. We will repeat the x-rays as necessary. I will hold an arterial blood gas now. I will order p.r.n. bronchodilators. She is appropriately on GI and DVT prophylaxis. Flu and pneumonia vaccination will be addressed per protocol. Thank you very much for the consult. We will follow along and make further recommendations as picture progresses/becomes clearer. TID: [id number] RECEIPT: [id number] LISA/CEDRICK REAL
[2020-11-16] MEDS: INSULIN LISPRO 100 UNIT/ML SUB-Q SCH ×4 (08:26→23:31)
--- NOTE | 2020-11-16 08:49 | Progress Note ---
Assessment and Plan Assessment and plan: This is a 55-year-old female who is a resident of [facility] with vascular dementia, depression, developmental delay, debility, diabetes mellitus, hyperlipidemia, recent COVID 19 infection, chronic kidney disease and recurrent DKA who presents the emergency department on 11/14 with reported confusion and ill-appearing over the past day and hypoglycemia. Evaluation in the emergency department revealed sepsis with tachycardia, febrile to 102.8, tachypnea, lactic acidosis and RACH suspected secondary to urinary tract infection/?covid 19 pna, diabetic ketoacidosis, metabolic acidosis, toxic metabolic encephalopathy, acute kidney injury and hypernatremia. Patient was in itiated sepsis, COVID-19 and DKA protocol admitted hospital service with consults to [facility] and nutrition. Sepsis Covid 19 PUI DKA-resolved RACH Toxic metabolic encephalopathy Pneumonia Urinary tract infection Leukocytosis Hypernaturemia, improving Hyperchloremia, improving Lactic acidosis, resolved Hypophosphatemia Hypokalemia, resolved Elevated ddimer 11/15: Patient has been transitioned to sliding scale insulin and started on a pured diet. Per SNF patient has completed antibiotic therapy for her mouth. Her leukocytosis, hypernatremia, hyperchloremia, metabolic acidosis have improved. She has worsening kidney function. ID consulted today. 11/16: Continue IV antibiotics of ceftriaxone and azithromycin per ID recommendations. Patient has been transitioned from IV insulin drip to long-act ing insulin of Lantus 14 units at bedtime. Patient does have acute kidney injury likely secondary to sepsis/ATN +/- vasomotor nephropathy. Creatinine is worse today at 2.7. Consult nephrology for further evaluation. Check CT scan of the abdomen pelvis. History Interval history: No new issues overnight Hospitalist Physical - Constitutional Vitals: Temp Pulse Resp BP Pulse Ox 99.3 F 109 H 20 106/62 87 11/16/20 03:34 11/16/20 03:34 11/16/20 03:34 11/16/20 03:34 11/16/20 03:34 General appearance: Present: no acute distress, disheveled - EENT Eyes: Present: PERRL, EOM intact ENT: hearing intact, clear oral mucosa, dentition normal - Neck Neck: Present: supple, normal ROM - Respiratory Respiratory effort: normal Respiratory: bilateral: CTA - Cardiovascular Rhythm: regular Heart Sounds: Present: S1 & S2. Absent: gallop, rub - Extremities Extremities: no ischemia, No edema, Full ROM - Abdominal General gastrointestinal: soft, non-tender, non-distended, normal bowel sounds - Integumentary Integumentary: Present: clear, warm, dry - Neurologic Neurologic: CNII-XII intact, moves all extremities HEART Score - HEART Score Troponin: Troponin T < 0.010 ng/mL (0.00-0.029) 11/14/20 16:23 Results - Labs CBC & Chem 7: 11/15/20 06:18 11/15/20 18:31 Labs: Laboratory Last Values WBC 10.7 K/mm3 (4.5-11.0) 11/15/20 06:18 RBC 2.74 M/mm3 (3.65-5.03) L 11/15/20 06:18 Hgb 8.9 gm/dl (10.1-14.3) L 11/15/20 06:18 Hct 26.1 % (30.3-42.9) L D 11/15/20 06:18 MCV 95 fl (79-97) 11/15/20 06:18 MCH 32 pg (28-32) 11/15/20 06:18 MCHC 34 % (30-34) 11/15/20 06:18 RDW 12.8 % (13.2-15.2) L 11/15/20 06:18 Plt Count 142 K/mm3 (140-440) 11/15/20 06:18 Add Manual Diff Complete 11/15/20 06:18 Total Counted 100 11/15/20 06:18 Seg Neutrophils % [facility] 11/14/20 16:23 Seg Neuts % (Manual) 81.0 % (40.0-70.0) H 11/15/20 06:18 Band Neutrophils % 2.0 % 11/15/20 06:18 Lymphocytes % (Manual) 15.0 % (13.4-35.0) 11/15/20 06:18 Monocytes % (Manual) 1.0 % (0.0-7.3) 11/15/20 06:18 Metamyelocytes % 1.0 % 11/15/20 06:18 Nucleated RBC % Not Reportable 11/15/20 06:18 Seg Neutrophils # Man 8.7 K/mm3 (1.8-7.7) H 11/15/20 06:18 Band Neutrophils # 0.2 K/mm3 11/15/20 06:18 Lymphocytes # (Manual) 1.6 K/mm3 (1.2-5.4) 11/15/20 06:18 Abs React Lymphs (Man) 0.0 K/mm3 11/15/20 06:18 Monocytes # (Manual) 0.1 K/mm3 (0.0-0.8) 11/15/20 06:18 Eosinophils # (Manual) 0.0 K/mm3 (0.0-0.4) 11/15/20 06:18 Basophils # (Manual) 0.0 K/mm3 (0.0-0.1) 11/15/20 06:18 Metamyelocytes # 0.1 K/mm3 11/15/20 06:18 Myelocytes # 0.0 K/mm3 11/15/20 06:18 Promyelocytes # 0.0 K/mm3 11/15/20 06:18 Blast Cells # 0.0 K/mm3 11/15/20 06:18 WBC Morphology Not Reportable 11/15/20 06:18 Hypersegmented Neuts Not Reportable 11/15/20 06:18 Hyposegmented Neuts Not Reportable 11/15/20 06:18 Hypogranular Neuts Not Reportable 11/15/20 06:18 Smudge Cells Not Reportable 11/15/20 06:18 Toxic Granulation Not Reportable 11/15/20 06:18 Toxic Vacuolation Not Reportable 11/15/20 06:18 Dohle Bodies Not Reportable 11/15/20 06:18 Pelger-Huet Anomaly Not Reportable 11/15/20 06:18 Jamia Rods Not Reportable 11/15/20 06:18 Platelet Estimate Consistent w auto 11/15/20 06:18 Clumped Platelets Not Reportable 11/15/20 06:18 Plt Clumps, EDTA Not Reportable 11/15/20 06:18 Large Platelets Not Reportable 11/15/20 06:18 Giant Platelets Not Reportable 11/15/20 06:18 Platelet Satelliting Not Reportable 11/15/20 06:18 Plt Morphology Comment Not Reportable 11/15/20 06:18 RBC Morphology Normal 11/15/20 06:18 Dimorphic RBCs Not Reportable 11/15/20 06:18 Polychromasia Not Reportable 11/15/20 06:18 Hypochromasia Not Reportable 11/15/20 06:18 Poikilocytosis Not Reportable 11/15/20 06:18 Anisocytosis Not Reportable 11/15/20 06:18 Microcytosis Not Reportable 11/15/20 06:18 Macrocytosis Not Reportable 11/15/20 06:18 Spherocytes Not Reportable 11/15/20 06:18 Pappenheimer Bodies Not Reportable 11/15/20 06:18 Sickle Cells Not Reportable 11/15/20 06:18 Target Cells Not Reportable 11/15/20 06:18 Tear Drop Cells Not Reportable 11/15/20 06:18 Ovalocytes Not Reportable 11/15/20 06:18 Helmet Cells Not Reportable 11/15/20 06:18 Galvan-Irmo Bodies Not Reportable 11/15/20 06:18 [place] Rings Not Reportable 11/15/20 06:18 Luis Cells Not Reportable 11/15/20 06:18 Bite Cells Not Reportable 11/15/20 06:18 Crenated Cell Not Reportable 11/15/20 06:18 Elliptocytes Not Reportable 11/15/20 06:18 Acanthocytes (Spur) Not Reportable 11/15/20 06:18 Rouleaux Not Reportable 11/15/20 06:18 Hemoglobin C Crystals Not Reportable 11/15/20 06:18 Schistocytes Not Reportable 11/15/20 06:18 Malaria parasites Not Reportable 11/15/20 06:18 Felice Bodies Not Reportable 11/15/20 06:18 Hem Pathologist Commnt No 11/15/20 06:18 PT 15.3 Sec. (12.2-14.9) H 11/14/20 16:23 INR 1.21 (0.87-1.13) H 11/14/20 16:23 APTT 23.1 Sec. (24.2-36.6) L 11/14/20 16:23 D-Dimer 2876.26 ng/mlDDU (0-234) H 11/14/20 18:30 VBG pH 7.216 (7.320-7.420) L 11/14/20 16:23 Sodium 149 mmol/L (137-145) H 11/15/20 18:31 Potassium 3.7 mmol/L (3.6-5.0) 11/15/20 18:31 Chloride 114.2 mmol/L (98-107) H 11/15/20 18:31 Carbon Dioxide 15 mmol/L (22-30) L 11/15/20 18:31 Anion Gap 24 mmol/L 11/15/20 18:31 BUN 37 mg/dL (7-17) H 11/15/20 18:31 Creatinine 2.0 mg/dL (0.6-1.2) H 11/15/20 18:31 Estimated GFR 26 ml/min 11/15/20 18:31 BUN/Creatinine Ratio 19 % 11/15/20 18:31 Glucose 400 mg/dL (65-100) H 11/15/20 18:31 POC Glucose 195 mg/dL (70-105) H 11/15/20 21:40 Hemoglobin A1c 10.8 % (4-6) H 11/15/20 10:15 Ketones Quantitative Moderate (Negative) 11/14/20 16:23 Lactic Acid 1.60 mmol/L (0.7-2.0) 11/15/20 06:18 Calcium 8.7 mg/dL (8.4-10.2) 11/15/20 18:31 Phosphorus 1.30 mg/dL (2.5-4.5) L 11/14/20 18:22 Magnesium 2.20 mg/dL (1.7-2.3) 11/14/20 18:22 Ferritin 623.7 ng/mL (10.0-200.0) H 11/14/20 18:30 Total Bilirubin < 0.20 mg/dL (0.1-1.2) 11/15/20 06:18 Direct Bilirubin < 0.2 mg/dL (0-0.2) 11/14/20 16:23 Indirect Bilirubin 0.0 mg/dL 11/14/20 16:23 AST 27 units/L (5-40) 11/15/20 06:18 ALT 20 units/L (7-56) 11/15/20 06:18 Alkaline Phosphatase 184 units/L (35-129) H 11/15/20 06:18 Lactate Dehydrogenase 247 units/L (91-180) H 11/14/20 18:30 Troponin T < 0.010 ng/mL (0.00-0.029) 11/14/20 16:23 C-Reactive Protein 52.00 mg/dL (0.00-1.30) H 11/14/20 18:30 Total Protein 5.8 g/dL (6.3-8.2) L D 11/15/20 06:18 Albumin 2.5 g/dL (3.9-5) L 11/15/20 06:18 Albumin/Globulin Ratio 0.8 % 11/15/20 06:18 Procalcitonin 30.66 ng/mL (<0.15) 11/14/20 18:30 Urine Color Yellow (Yellow) 11/14/20 16:27 Urine Turbidity Cloudy (Clear) 11/14/20 16:27 Urine pH 5.0 (5.0-7.0) 11/14/20 16:27 Ur Specific [place] 1.022 (1.003-1.030) 11/14/20 16:27 Urine Protein 100 mg/dl mg/dL (Negative) 11/14/20 16:27 Urine Glucose (UA) >=500 mg/dL (Negative) 11/14/20 16:27 Urine Ketones 80 mg/dL (Negative) 11/14/20 16:27 Urine Blood Sm (Negative) 11/14/20 16:27 Urine Nitrite Neg (Negative) 11/14/20 16:27 Urine Bilirubin Neg (Negative) 11/14/20 16:27 Urine Urobilinogen < 2.0 mg/dL (<2.0) 11/14/20 16:27 Ur Leukocyte Esterase Neg (Negative) 11/14/20 16:27 Urine WBC (Auto) 38.0 /HPF (0.0-6.0) H 11/14/20 16:27 Urine RBC (Auto) 155.0 /HPF (0.0-6.0) 11/14/20 16:27 U Epithel Cells (Auto) < 1.0 /HPF (0-13.0) 11/14/20 16:27 Urine Bacteria (Auto) 1+ /HPF (Negative) 11/14/20 16:27 Urine Yeast (Budding) 3+ /HPF 11/14/20 16:27 Microbiology: Microbiology 11/14/20 16:23 Peripheral/Venous Blood Culture - Preliminary NO GROWTH AFTER 24 HOURS 11/14/20 16:18 Peripheral/Venous Blood Culture - Preliminary NO GROWTH AFTER 24 HOURS 11/14/20 16:27 Urine,Catheterized - Straight Catheter Urine Culture - Preliminary NO GROWTH AFTER 24 HOURS Verma/IV: Voiding Method External Female Catheter Active Medications - Current Medications Current Medications: Generic Name Dose Route Start Last Admin Trade Name Freq PRN Reason Stop Dose Admin Acetaminophen 650 mg 11/14/20 18:37 Acetaminophen 325 Mg Tab PO Q6H PRN Pain, Mild (1-3) Citalopram Hydrobromide 20 mg 11/16/20 10:00 Citalopram 20 Mg Tab PO QDAY SHAHLA Dextrose 50 ml 11/15/20 10:20 Dextrose 50% In Water (25gm) 50 Ml Syringe IV Q30MIN PRN Hypoglycemia Protocol Famotidine 20 mg 11/16/20 10:00 Famotidine 20 Mg Tab PO QDAY SHAHLA Heparin Sodium (Porcine) 5,000 unit 11/15/20 22:00 11/15/20 21:55 Heparin 5,000 Unit/1 Ml Vial SUB-Q 5,000 unit Q12HR SHAHLA Administration Ceftriaxone Sodium 2 gm in 100 mls @ 200 mls/hr 11/14/20 19:00 11/15/20 20:00 Rocephin/Ns 2 Gm/100 Ml IV Not Given Q24H [facility] Protocol Azithromycin 500 mg in 250 mls @ 250 mls/hr 11/14/20 19:00 11/15/20 20:41 Zithromax/Ns IV 250 mls/hr Q24H [facility] Administration Protocol Insulin Glargine 13 units 11/15/20 11:00 11/15/20 12:29 Insulin Glargine 100 Units/Ml SUB-Q 13 units QAMDIAB SHAHLA Administration Insulin Human Lispro 0 unit 11/15/20 11:30 11/16/20 08:26 Insulin Lispro 100 Unit/Ml SUB-Q 2 unit ACHS [facility] Administration Protocol Oxycodone/Acetaminophen 1 tab 11/15/20 11:45 11/15/20 19:56 Oxycodone /Acetaminophen 5-325mg Tab PO 1 tab Q4H PRN Administration Pain, Moderate (4-6) Pravastatin Sodium 40 mg 11/15/20 22:00 11/15/20 22:45 Pravastatin 40 Mg Tab PO Not Given QHS SHAHLA Sodium Chloride 10 ml 11/14/20 22:00 11/15/20 21:45 Sodium Chloride 0.9% 10 Ml Flush Syringe IV 10 ml BID SHAHLA Administration Sodium Chloride 10 ml 11/14/20 18:33 Sodium Chloride 0.9% 10 Ml Flush Syringe IV PRN PRN LINE FLUSH Nutrition/Malnutrition Assess - Dietary Evaluation Nutrition/Malnutrition Findings: Nutrition Notes Start: 11/15/20 10:28 Freq: Status: Active Protocol: Document 11/15/20 10:28 (Rec: 11/15/20 10:35 [email or web address]) Nutrition Notes Need for Assessment generated from: MD Order,Low BMI Initial or Follow up Assessment Current Diagnosis Acute Kidney Injury,Diabetes, Sepsis,Hyperlipidemia Other Pertinent Diagnosis DKA, pneu, COVID PUI, UTI, dementia, debility Current Diet Pureed Labs/Tests Na 148 BUN 33 Cr 1.8 Pertinent Medications D5w/NS with 30 mEq Kcl at 100 ml/hr Height 5 ft 4 in Weight 45.2 kg Florien Body Weight (kg) 54.54 BMI 17.1 Weight change and time frame Per previous visits, pt wt fluctuates between 79-43kg, unsure of UBW for pt. Weight Status Underweight Subjective/Other Information MD order for ONS. Screen for low BMI. Pt is non-verbal. Pt NPO for breakfast this AM. Minimum of two criteria No physical signs of malnutrition #1 Nutrition Diagnosis Predicted suboptimal energy intake Etiology dementia As Evidenced by Signs and Symptoms BMI 17.1 Is patient on ventilator? No Is Patient Ambulatory and/or Out of Bed No REE-([facility]-confined to bed) 1243.140 Calculation Used for Recommendations [facility] Additional Notes Protein: (0.8-1.2g/kg) 36-54g Fluid: 1 ml/kcal Nutrition Intervention Change Diet Order: Continue Add Supplement/Snack (indicate name/kcal Glucerna TID /protein ) Provides kCal: 660 Provides Protein (gm) 30 Goal #1 Meet at least 75% of protein and energy needs via PO and ONS intakes Anticipated Discharge Needs: Pureed with ONS PRN Follow-Up By: 11/18/20 Additional Comments FU for intakes and ONS tolerance
--- NOTE | 2020-11-16 10:09 | Consultation ---
History of Present Illness - Reason for Consult Consult date: 11/16/20 acute renal failure, chronic renal failure - History of Present Illness The patient is a 54 YO female from [facility] with history significant for DM, HLD, Vascular Dementia and Debility who presented to [facility] ED 11/14/20 for evaluation of worsening confusion of 1 day duration. Pt is nonverbal and unable to provide any history. Pt was transported to ED by EMS. Patient found to have bilateral PNA, sepsis infection, diabetic ketoacidosis, toxic metabolic encephalopathy, acute kidney injury, and hypernatremia. Patient initiated on sepsis protocol, Coronavirus protocol and DKA protocol. Patient admitted to ICU due to increased risk for decompensation. Labs today with Creatinine of 2.7. Nephrology was consulted for further evaluation. Past History Past Medical History: diabetes, hyperlipidemia Past Surgical History: No surgical history, Other (Reviewed) Social history: single. denies: smoking, alcohol abuse, prescription drug abuse Family history: diabetes, hypertension Medications and Allergies Allergies Allergy/AdvReac Type Severity Reaction Status Date / Time No Known Allergies Allergy Verified 02/26/20 10:24 Home Medications Medication Instructions Recorded Confirmed Last Taken Type Citalopram [Celexa] 20 mg PO QDAY 01/25/20 03/06/20 Unknown History Pravastatin [Pravachol] 40 mg PO QHS 01/25/20 03/06/20 Unknown History Acetaminophen [Mapap] 650 mg PO BID PRN 02/26/20 03/06/20 Unknown History Ascorbic Acid [Vitamin C with Chetna 500 mg PO DAILY 02/26/20 03/06/20 Unknown History Hips] Glimepiride [Amaryl] 4 mg PO QAM 02/26/20 03/06/20 Unknown History Insulin Lispro [Humalog] 5 units SQ AC 02/26/20 03/06/20 Unknown History Multivit-Min/Ferrous Fumarate 15 mg PO DAILY 02/26/20 03/06/20 Unknown History [Multivitamin with Minerals Tab] Apixaban [Eliquis] 2.5 mg PO BID #30 tablet 03/01/20 03/06/20 Unknown Rx Active Meds: Active Medications Acetaminophen (Acetaminophen 325 Mg Tab) 650 mg PO Q6H PRN PRN Reason: Pain, Mild (1-3) Citalopram Hydrobromide (Citalopram 20 Mg Tab) 20 mg PO QDAY SHAHLA Dextrose (Dextrose 50% In Water (25gm) 50 Ml Syringe) 50 ml IV Q30MIN PRN; Protocol PRN Reason: Hypoglycemia Famotidine (Famotidine 20 Mg Tab) 20 mg PO QDAY [facility] Heparin Sodium (Porcine) (Heparin 5,000 Unit/1 Ml Vial) 5,000 unit SUB-Q Q12HR [facility] Last Admin: 11/15/20 21:55 Dose: 5,000 unit Documented by: Ceftriaxone Sodium (Rocephin/Ns 2 Gm/100 Ml) 2 gm in 100 mls @ 200 mls/hr IV Q24H [facility]; Protocol Last Admin: 11/15/20 20:00 Dose: Not Given Documented by: Azithromycin (Zithromax/Ns) 500 mg in 250 mls @ 250 mls/hr IV Q24H [facility]; Protocol Last Admin: 11/15/20 20:41 Dose: 250 mls/hr Documented by: Insulin Glargine (Insulin Glargine 100 Units/Ml) 14 units SUB-Q QHS [facility] Insulin Human Lispro (Insulin Lispro 100 Unit/Ml) 0 unit SUB-Q ACHS [facility]; Protocol Last Admin: 11/16/20 08:26 Dose: 2 unit Documented by: Oxycodone/Acetaminophen (Oxycodone /Acetaminophen 5-325mg Tab) 1 tab PO Q4H PRN PRN Reason: Pain, Moderate (4-6) Last Admin: 11/15/20 19:56 Dose: 1 tab Documented by: Pravastatin Sodium (Pravastatin 40 Mg Tab) 40 mg PO QHS [facility] Last Admin: 11/15/20 22:45 Dose: Not Given Documented by: Sodium Chloride (Sodium Chloride 0.9% 10 Ml Flush Syringe) 10 ml IV BID [facility] Last Admin: 11/15/20 21:45 Dose: 10 ml Documented by: Sodium Chloride (Sodium Chloride 0.9% 10 Ml Flush Syringe) 10 ml IV PRN PRN PRN Reason: LINE FLUSH Review of Systems ROS unobtainable: due to mental status Exam - Vital Signs Vital signs: Vital Signs Pulse Resp Pulse Ox 162 H 30 H 95 11/14/20 15:40 11/14/20 15:40 11/14/20 15:40 Results - Lab Results 11/15/20 06:18 11/17/20 10:30 Most recent lab results Calcium 8.0 mg/dL (8.4-10.2) L 11/16/20 07:00 Phosphorus 4.70 mg/dL (2.5-4.5) H D 11/16/20 07:00 Magnesium 2.20 mg/dL (1.7-2.3) 11/14/20 18:22 Assessment and Plan 1. Acute kidney injury: Vasomotor RACH superimposed on CKD in the setting of sepsis. ATN likely. Order for CT abdomen noted. Urine studies ordered. Monitor renal function. Creatinine level increasing. Renal prognosis is guarded. Avoid nephrotoxic agents. Meds dosage based on GFR. 2. FEN: Hypernatremia, hypotonic IV fluids. Hyperchloremic metabolic acidosis, started on IV D5W, monitor. Monitor lytes and volume status. 3. Sepsis: Likely 2/2 PNA. Pending Covid test. Continue abx. Follow cultures. 4. Bilateral PNA: Abx. 5. COVID-19 PUI. Follow results. 6. DKA: Improving. 7. Anemia: Monitor. 8. HTN: Monitor BP. 9. Metabolic encephalopathy, POA. - Subjective: Patient was seen and examined at the bedside. - General Appearance: General appearance: appears stated age, not in distress, appears chronically ill HEENT: ATNC, CAITY Neck: Trachea midline Respiratory: coarse breath sounds Cardiology: regular, S1S2, no murmur Gastrointestinal: normoactive bowel sounds, not tender, not distended Integumentary: no rash, warm and dry Neurologic: lethargic, not following any command, non-verbal Ext: no edema
--- NOTE | 2020-11-16 10:50 | Cat Scan Report ---
CT abdomen pelvis wo con INDICATION: ARF with UTI. TECHNIQUE: All CT scans at this location are performed using CT dose reduction for ALARA by means of automated e xposure control. COMPARISON: 02/26/2020 FINDINGS: There has now developed considerable pleural parenchymal disease in the lung bases, especially on the left. Liver, gallbladder, spleen, pancreas, kidneys and adrenals are grossly negative on this noncon trast exam. Again demonstrated is a nonobstructing calculus in the lower pole of the right kidney. Kidneys are no rmal in size and cortical thickness. No hydronephrosis. Abdominal aorta is normal in size. No adenopa thy. Pelvis Calcified uterine fibroid. Urinary bladder appears negative. No significant bowel abnormalities. No f ree fluid or inflammation. Advanced degenerative change in the left hip. No acute skeletal lesions. IMPRESSION: 1. Stable, nonobstructing calculus in the right kidney. Kidneys otherwise appear negative on this non contrast exam. 2. Considerable bibasilar parenchymal disease, especially on the left. Signer Name: Sachin Ely MD Signed: 11/16/2020 10:45 AM Workstation Name: [id number]
[2020-11-16] MEDS: INSULIN GLARGINE 100 UNITS/ML SUB-Q SCH ×2 (11:52→23:31)
[2020-11-16] MEDS: CITALOPRAM 20 MG TAB PO SCH (11:53)
[2020-11-16] MEDS: FAMOTIDINE 20 MG TAB PO SCH (11:54)
[2020-11-16] MEDS: HEPARIN 5,000 UNIT/1 ML VIAL SUB-Q SCH ×2 (11:54→22:41)
--- NOTE | 2020-11-16 12:11 | Progress Note ---
Assessment and Plan Acute hypoxemic respiratory failure. Severe sepsis. Diabetic ketoacidosis. Acute kidney injury. Pneumonia. Acute on chronic toxic metabolic encephalopathy. PUI COVID-19 infection. Possible urinary tract infection. Adult failure to thrive. History of diabetes. History of hyperlipidemia. - continue to wean supplemental oxygen to keep O2 sats > 90% - Bronchodilators (JOANNA) with pulm hygiene per RT - continue to avoid nephrotoxins, renally dose all medications - continue mobility protocols to prevent pressure ulcers - PT/OT as tolerated - Wound care per RN/WCT - continue accuchecks with glycemic control per SSI for target blood glucose < 180 mg/dL - home oxygen evaluation at discharge - GI & VTE prophylaxis - Flu & pneumovax per protocol - Pulmonary out patient follow up for PFTs and optimization of respiratory status - continue other care per attending / other consultants - prn analgesia per pain score COVID-19 SPECIFIC INTERVENTIONS: - Remdesivir as per ID/Pulmonary developed protocols - continue systemic steroids for severe COVID-19 infection empirically - follow repeat COVID tests results - zinc and vitamin C supplementation - Monitor inflammatory markers per facility protocol - ferritin, Ddimer, CRP - therapeutic anticoagulation per system Protocol based on d-dimer and clinical considerations - Continue contact and airborne isolation ... re-evaluate in am & prn Subjective Date of service: 11/16/20 Principal diagnosis: Ac hypoxemic resp failure; Sepsis; DKA; RACH; Pneumonia; PUI COVID-19 Interval history: Patient is seen today for: Acute hypoxemic respiratory failure; Severe sepsis; DKA; RACH; Pneumonia; PUI COVID-19 Seen and examined at bedside; 24hour events reviewed; nursing and respiratory care staff consulted; no adverse overnight events reported to me; resting peacefully in bed; remains on supplemental oxygen; AMS is persistent Objective Vital Signs - 12hr 11/16/20 03:34 Temperature 99.3 F Pulse Rate 109 H Respiratory 20 Rate Blood Pressure 106/62 O2 Sat by Pulse 87 Oximetry Constitutional: appears uncomfortable Eyes: non-icteric ENT: oropharynx dry Neck: supple, no lymphadenopathy, no JVD Effort: mildly labored Ascultation: Bilateral: diminished breath sounds, rhonchi Percussion: Bilateral: not dull Cardiovascular: regular rate and rhythm Gastrointestinal: normoactive bowel sounds, soft, non-tender, non-distended Integumentary: other (see [facility] notes) Extremities: no cyanosis, no edema, pink and warm, pulses normal Neurologic: pupils equal and round, CN II-XII normal, motor strength normal and, other (+ cognitive dysfunction) Psychiatric: anxious CBC and BMP: 11/15/20 06:18 11/17/20 10:30 ABG, PT/INR, D-dimer: PT/INR, D-dimer PT 15.3 Sec. (12.2-14.9) H 11/14/20 16:23 INR 1.21 (0.87-1.13) H 11/14/20 16:23 D-Dimer 2876.26 ng/mlDDU (0-234) H 11/14/20 18:30 Abnormal lab findings: Abnormal Labs 11/14/20 11/14/20 11/14/20 16:23 16:23 16:23 WBC 14.5 H RBC 3.48 L Hgb Hct MCV 101 H RDW Seg Neuts % (Manual) 92.0 H Lymphocytes % (Manual) 5.0 L Seg Neutrophils # Man 13.3 H Lymphocytes # (Manual) 0.7 L PT 15.3 H INR 1.21 H APTT 23.1 L D-Dimer VBG pH Sodium Potassium Chloride Carbon Dioxide BUN Creatinine Glucose POC Glucose Hemoglobin A1c Lactic Acid 7.50 H* Calcium Phosphorus Ferritin Alkaline Phosphatase Lactate Dehydrogenase C-Reactive Protein Total Protein Albumin Urine WBC (Auto) 11/14/20 11/14/20 11/14/20 16:23 16:23 16:27 WBC RBC Hgb Hct MCV RDW Seg Neuts % (Manual) Lymphocytes % (Manual) Seg Neutrophils # Man Lymphocytes # (Manual) PT INR APTT D-Dimer VBG pH 7.216 L Sodium 166 H* Potassium Chloride 120.8 H Carbon Dioxide 6 L* BUN 36 H Creatinine 1.9 H Glucose 765 H* POC Glucose Hemoglobin A1c Lactic Acid Calcium 11.4 H Phosphorus Ferritin Alkaline Phosphatase 259 H Lactate Dehydrogenase C-Reactive Protein Total Protein Albumin 3.3 L Urine WBC (Auto) 38.0 H 11/14/20 11/14/20 11/14/20 18:22 18:22 18:22 WBC RBC Hgb Hct MCV RDW Seg Neuts % (Manual) Lymphocytes % (Manual) Seg Neutrophils # Man Lymphocytes # (Manual) PT INR APTT D-Dimer VBG pH Sodium Potassium Chloride Carbon Dioxide 11 L BUN 32 H Creatinine 1.5 H Glucose 695 H* POC Glucose Hemoglobin A1c Lactic Acid 2.60 H* Calcium Phosphorus 1.30 L Ferritin Alkaline Phosphatase Lactate Dehydrogenase C-Reactive Protein Total Protein Albumin Urine WBC (Auto) 11/14/20 11/14/20 11/14/20 18:30 18:30 18:30 WBC RBC Hgb Hct MCV RDW Seg Neuts % (Manual) Lymphocytes % (Manual) Seg Neutrophils # Man Lymphocytes # (Manual) PT INR APTT D-Dimer 2876.26 H VBG pH Sodium Potassium Chloride Carbon Dioxide BUN Creatinine Glucose POC Glucose Hemoglobin A1c Lactic Acid Calcium Phosphorus Ferritin 623.7 H Alkaline Phosphatase Lactate Dehydrogenase 247 H C-Reactive Protein 52.00 H Total Protein Albumin Urine WBC (Auto) 11/14/20 11/14/20 11/14/20 20:23 23:08 23:08 WBC RBC Hgb Hct MCV RDW Seg Neuts % (Manual) Lymphocytes % (Manual) Seg Neutrophils # Man Lymphocytes # (Manual) PT INR APTT D-Dimer VBG pH Sodium Potassium 2.6 L* D Chloride 109.4 H Carbon Dioxide 8 L* 10 L BUN 33 H 32 H Creatinine 1.6 H < 0.2 L D Glucose 753 H* 509 H* POC Glucose Hemoglobin A1c Lactic Acid 5.70 H* Calcium Phosphorus Ferritin Alkaline Phosphatase Lactate Dehydrogenase C-Reactive Protein Total Protein Albumin Urine WBC (Auto) 11/14/20 11/15/20 11/15/20 23:14 00:01 00:54 WBC RBC Hgb Hct MCV RDW Seg Neuts % (Manual) Lymphocytes % (Manual) Seg Neutrophils # Man Lymphocytes # (Manual) PT INR APTT D-Dimer VBG pH Sodium Potassium Chloride Carbon Dioxide BUN Creatinine Glucose POC Glucose 427 H 375 H 280 H Hemoglobin A1c Lactic Acid Calcium Phosphorus Ferritin Alkaline Phosphatase Lactate Dehydrogenase C-Reactive Protein Total Protein Albumin Urine WBC (Auto) 11/15/20 11/15/20 11/15/20 01:58 02:56 04:53 WBC RBC Hgb Hct MCV RDW Seg Neuts % (Manual) Lymphocytes % (Manual) Seg Neutrophils # Man Lymphocytes # (Manual) PT INR APTT D-Dimer VBG pH Sodium Potassium Chloride Carbon Dioxide BUN Creatinine Glucose POC Glucose 191 H 124 H 140 H Hemoglobin A1c Lactic Acid Calcium Phosphorus Ferritin Alkaline Phosphatase Lactate Dehydrogenase C-Reactive Protein Total Protein Albumin Urine WBC (Auto) 11/15/20 11/15/20 11/15/20 06:18 06:18 06:18 WBC RBC 2.74 L Hgb 8.9 L Hct 26.1 L D MCV RDW 12.8 L Seg Neuts % (Manual) 81.0 H Lymphocytes % (Manual) Seg Neutrophils # Man 8.7 H Lymphocytes # (Manual) PT INR APTT D-Dimer VBG pH Sodium 149 H 149 H Potassium Chloride 116.2 H 117.4 H Carbon Dioxide 20 L D 20 L BUN 33 H 32 H Creatinine 1.6 H D 1.6 H Glucose 236 H 231 H POC Glucose Hemoglobin A1c Lactic Acid Calcium Phosphorus Ferritin Alkaline Phosphatase 184 H Lactate Dehydrogenase C-Reactive Protein Total Protein 5.8 L D Albumin 2.5 L Urine WBC (Auto) 11/15/20 11/15/20 11/15/20 06:24 10:15 10:18 WBC RBC Hgb Hct MCV RDW Seg Neuts % (Manual) Lymphocytes % (Manual) Seg Neutrophils # Man Lymphocytes # (Manual) PT INR APTT D-Dimer VBG pH Sodium 148 H Potassium Chloride 116.4 H Carbon Dioxide 19 L BUN 33 H Creatinine 1.8 H Glucose 133 H POC Glucose 223 H Hemoglobin A1c 10.8 H Lactic Acid Calcium Phosphorus Ferritin Alkaline Phosphatase Lactate Dehydrogenase C-Reactive Protein Total Protein Albumin Urine WBC (Auto) 11/15/20 11/15/20 11/15/20 12:20 17:44 18:31 WBC RBC Hgb Hct MCV RDW Seg Neuts % (Manual) Lymphocytes % (Manual) Seg Neutrophils # Man Lymphocytes # (Manual) PT INR APTT D-Dimer VBG pH Sodium 149 H Potassium Chloride 114.2 H Carbon Dioxide 15 L BUN 37 H Creatinine 2.0 H Glucose 400 H POC Glucose 266 H 350 H Hemoglobin A1c Lactic Acid Calcium Phosphorus Ferritin Alkaline Phosphatase Lactate Dehydrogenase C-Reactive Protein Total Protein Albumin Urine WBC (Auto) 11/15/20 11/16/20 11/16/20 21:40 07:00 07:56 WBC RBC Hgb Hct MCV RDW Seg Neuts % (Manual) Lymphocytes % (Manual) Seg Neutrophils # Man Lymphocytes # (Manual) PT INR APTT D-Dimer VBG pH Sodium 152 H Potassium Chloride 118.9 H Carbon Dioxide 17 L BUN 43 H Creatinine 2.7 H Glucose 204 H POC Glucose 195 H 222 H Hemoglobin A1c Lactic Acid Calcium 8.0 L Phosphorus 4.70 H D Ferritin Alkaline Phosphatase Lactate Dehydrogenase C-Reactive Protein Total Protein Albumin Urine WBC (Auto) 11/16/20 11:40 WBC RBC Hgb Hct MCV RDW Seg Neuts % (Manual) Lymphocytes % (Manual) Seg Neutrophils # Man Lymphocytes # (Manual) PT INR APTT D-Dimer VBG pH Sodium Potassium Chloride Carbon Dioxide BUN Creatinine Glucose POC Glucose 201 H Hemoglobin A1c Lactic Acid Calcium Phosphorus Ferritin Alkaline Phosphatase Lactate Dehydrogenase C-Reactive Protein Total Protein Albumin Urine WBC (Auto) Allied health notes reviewed: nursing
--- NOTE | 2020-11-16 12:15 | Ultrasound Report ---
Renal ultrasound INDICATION: Renal failure FINDINGS: Right kidney measures 11.6 cm in left kidney 10.9 cm. Echogenic focus with shadowing in the right kidney suggest nonobstructing stone measuring 5 mm. Cystic structure in the left kidney measur es 2.1 x 1.9 cm. No hydronephrosis or mass. IMPRESSION: 1. Nonobstructing right renal stone. 2. Left renal cyst. Signer Name: Mina Marley MD Signed: 11/16/2020 12:10 PM Workstation Name: [id number]
[2020-11-16] MEDS: DEXTROSE 5% IN WATER 1,000 ML IV SCH (12:32)
[2020-11-16] MEDS: cefTRIAXone/NS 2 GM/100 ML 2 GM/100 ML BAG IV SCH (19:40)
[2020-11-16] MEDS: AZITHROMYCIN/NS 500 MG/250 ML 500 MG/250 ML BAG IV SCH (19:47)
[2020-11-16] MEDS: PRAVASTATIN 40 MG TAB PO SCH (22:19)
[2020-11-17] MEDS: DEXTROSE 5% IN WATER 1,000 ML IV SCH (06:53)
--- NOTE | 2020-11-17 08:07 | Progress Note ---
Assessment and Plan Assessment and plan: This is a 55-year-old female who is a resident of [facility] with vascular dementia, depression, developmental delay, debility, diabetes mellitus, hyperlipidemia, recent COVID 19 infection, chronic kidney disease and recurrent DKA who presents the emergency department on 11/14 with reported confusion and ill-appearing over the past day and hypoglycemia. Evaluation in the emergency department revealed sepsis with tachycardia, febrile to 102.8, tachypnea, lactic acidosis and RACH suspected secondary to urinary tract infection/?covid 19 pna, diabetic ketoacidosis, metabolic acidosis, toxic metabolic encephalopathy, acute kidney injury and hypernatremia. Patient was in itiated sepsis, COVID-19 and DKA protocol admitted hospital service with consults to CCM and nutrition. Sepsis Covid 19 DKA-resolved RACH Toxic metabolic encephalopathy Bilateral pneumonia Urinary tract infection Leukocytosis Hypernaturemia, improving Hyperchloremia, improving Lactic acidosis, resolved Hypophosphatemia Hypokalemia, resolved Elevated ddimer 11/15: Patient has been transitioned to sliding scale insulin and started on a pured diet. Per SNF patient has completed antibiotic therapy for her mouth. Her leukocytosis, hypernatremia, hyperchloremia, metabolic acidosis have improved. She has worsening kidney function. ID consulted today. 11/16: Continue IV antibiotics of ceftriaxone and azithromycin per ID recommendations. Patient has been transitioned from IV insulin drip to long- acting insulin of Lantus 14 units at bedtime. Patient does have acute kidney injury likely secondary to sepsis/ATN +/- vasomotor nephropathy. Creatinine is worse today at 2.7. Consult nephrology for further evaluation. Check CT scan of the abdomen pelvis. 11/17: Continue antibiotics per ID recommendations. Patient appears to have pneumonia and UTI. Blood and urine cultures remain negative x48 hours. Follow- up COVID-[address] scan shows a nonobstructing calculus in the right kidney. Follow-up BMP to assess renal function History Interval history: No new issues overnight Hospitalist Physical - Constitutional Vitals: Temp Pulse Resp BP Pulse Ox 98.9 F 96 H 20 116/62 99 11/17/20 04:41 11/17/20 04:41 11/17/20 04:41 11/17/20 04:41 11/17/20 04:41 General appearance: Present: no acute distress, disheveled - EENT Eyes: Present: PERRL, EOM intact ENT: hearing intact, clear oral mucosa, dentition normal - Neck Neck: Present: supple, normal ROM - Respiratory Respiratory effort: normal Respiratory: bilateral: CTA - Cardiovascular Rhythm: regular Heart Sounds: Present: S1 & S2. Absent: gallop, rub - Extremities Extremities: no ischemia, No edema, Full ROM - Abdominal General gastrointestinal: soft, non-tender, non-distended, normal bowel sounds - Integumentary Integumentary: Present: clear, warm, dry - Neurologic Neurologic: CNII-XII intact, moves all extremities HEART Score - HEART Score Troponin: Troponin T < 0.010 ng/mL (0.00-0.029) 11/14/20 16:23 Results - Labs CBC & Chem 7: 11/15/20 06:18 11/16/20 07:00 Labs: Laboratory Last Values WBC 10.7 K/mm3 (4.5-11.0) 11/15/20 06:18 RBC 2.74 M/mm3 (3.65-5.03) L 11/15/20 06:18 Hgb 8.9 gm/dl (10.1-14.3) L 11/15/20 06:18 Hct 26.1 % (30.3-42.9) L D 11/15/20 06:18 MCV 95 fl (79-97) 11/15/20 06:18 MCH 32 pg (28-32) 11/15/20 06:18 MCHC 34 % (30-34) 11/15/20 06:18 RDW 12.8 % (13.2-15.2) L 11/15/20 06:18 Plt Count 142 K/mm3 (140-440) 11/15/20 06:18 Add Manual Diff Complete 11/15/20 06:18 Total Counted 100 11/15/20 06:18 Seg Neutrophils % Roving Teller 11/14/20 16:23 Seg Neuts % (Manual) 81.0 % (40.0-70.0) H 11/15/20 06:18 Band Neutrophils % 2.0 % 11/15/20 06:18 Lymphocytes % (Manual) 15.0 % (13.4-35.0) 11/15/20 06:18 Monocytes % (Manual) 1.0 % (0.0-7.3) 11/15/20 06:18 Metamyelocytes % 1.0 % 11/15/20 06:18 Nucleated RBC % Not Reportable 11/15/20 06:18 Seg Neutrophils # Man 8.7 K/mm3 (1.8-7.7) H 11/15/20 06:18 Band Neutrophils # 0.2 K/mm3 11/15/20 06:18 Lymphocytes # (Manual) 1.6 K/mm3 (1.2-5.4) 11/15/20 06:18 Abs React Lymphs (Man) 0.0 K/mm3 11/15/20 06:18 Monocytes # (Manual) 0.1 K/mm3 (0.0-0.8) 11/15/20 06:18 Eosinophils # (Manual) 0.0 K/mm3 (0.0-0.4) 11/15/20 06:18 Basophils # (Manual) 0.0 K/mm3 (0.0-0.1) 11/15/20 06:18 Metamyelocytes # 0.1 K/mm3 11/15/20 06:18 Myelocytes # 0.0 K/mm3 11/15/20 06:18 Promyelocytes # 0.0 K/mm3 11/15/20 06:18 Blast Cells # 0.0 K/mm3 11/15/20 06:18 WBC Morphology Not Reportable 11/15/20 06:18 Hypersegmented Neuts Not Reportable 11/15/20 06:18 Hyposegmented Neuts Not Reportable 11/15/20 06:18 Hypogranular Neuts Not Reportable 11/15/20 06:18 Smudge Cells Not Reportable 11/15/20 06:18 Toxic Granulation Not Reportable 11/15/20 06:18 Toxic Vacuolation Not Reportable 11/15/20 06:18 Dohle Bodies Not Reportable 11/15/20 06:18 Pelger-Huet Anomaly Not Reportable 11/15/20 06:18 Jamia Rods Not Reportable 11/15/20 06:18 Platelet Estimate Consistent w auto 11/15/20 06:18 Clumped Platelets Not Reportable 11/15/20 06:18 Plt Clumps, EDTA Not Reportable 11/15/20 06:18 Large Platelets Not Reportable 11/15/20 06:18 Giant Platelets Not Reportable 11/15/20 06:18 Platelet Satelliting Not Reportable 11/15/20 06:18 Plt Morphology Comment Not Reportable 11/15/20 06:18 RBC Morphology Normal 11/15/20 06:18 Dimorphic RBCs Not Reportable 11/15/20 06:18 Polychromasia Not Reportable 11/15/20 06:18 Hypochromasia Not Reportable 11/15/20 06:18 Poikilocytosis Not Reportable 11/15/20 06:18 Anisocytosis Not Reportable 11/15/20 06:18 Microcytosis Not Reportable 11/15/20 06:18 Macrocytosis Not Reportable 11/15/20 06:18 Spherocytes Not Reportable 11/15/20 06:18 Pappenheimer Bodies Not Reportable 11/15/20 06:18 Sickle Cells Not Reportable 11/15/20 06:18 Target Cells Not Reportable 11/15/20 06:18 Tear Drop Cells Not Reportable 11/15/20 06:18 Ovalocytes Not Reportable 11/15/20 06:18 Helmet Cells Not Reportable 11/15/20 06:18 [place] Bodies Not Reportable 11/15/20 06:18 Hadley Rings Not Reportable 11/15/20 06:18 Luis Cells Not Reportable 11/15/20 06:18 Bite Cells Not Reportable 11/15/20 06:18 Crenated Cell Not Reportable 11/15/20 06:18 Elliptocytes Not Reportable 11/15/20 06:18 Acanthocytes (Spur) Not Reportable 11/15/20 06:18 Rouleaux Not Reportable 11/15/20 06:18 Hemoglobin C Crystals Not Reportable 11/15/20 06:18 Schistocytes Not Reportable 11/15/20 06:18 Malaria parasites Not Reportable 11/15/20 06:18 Felice Bodies Not Reportable 11/15/20 06:18 Hem Pathologist Commnt No 11/15/20 06:18 PT 15.3 Sec. (12.2-14.9) H 11/14/20 16:23 INR 1.21 (0.87-1.13) H 11/14/20 16:23 APTT 23.1 Sec. (24.2-36.6) L 11/14/20 16:23 D-Dimer 2876.26 ng/mlDDU (0-234) H 11/14/20 18:30 VBG pH 7.216 (7.320-7.420) L 11/14/20 16:23 Sodium 152 mmol/L (137-145) H 11/16/20 07:00 Potassium 4.0 mmol/L (3.6-5.0) 11/16/20 07:00 Chloride 118.9 mmol/L (98-107) H 11/16/20 07:00 Carbon Dioxide 17 mmol/L (22-30) L 11/16/20 07:00 Anion Gap 20 mmol/L 11/16/20 07:00 BUN 43 mg/dL (7-17) H 11/16/20 07:00 Creatinine 2.7 mg/dL (0.6-1.2) H 11/16/20 07:00 Estimated GFR 18 ml/min 11/16/20 07:00 BUN/Creatinine Ratio 16 % 11/16/20 07:00 Glucose 204 mg/dL (65-100) H 11/16/20 07:00 POC Glucose 230 mg/dL (70-105) H 11/16/20 21:07 Hemoglobin A1c 10.8 % (4-6) H 11/15/20 10:15 Ketones Quantitative Moderate (Negative) 11/14/20 16:23 Lactic Acid 1.60 mmol/L (0.7-2.0) 11/15/20 06:18 Calcium 8.0 mg/dL (8.4-10.2) L 11/16/20 07:00 Phosphorus 4.70 mg/dL (2.5-4.5) H D 11/16/20 07:00 Magnesium 2.20 mg/dL (1.7-2.3) 11/14/20 18:22 Ferritin 623.7 ng/mL (10.0-200.0) H 11/14/20 18:30 Total Bilirubin < 0.20 mg/dL (0.1-1.2) 11/15/20 06:18 Direct Bilirubin < 0.2 mg/dL (0-0.2) 11/14/20 16:23 Indirect Bilirubin 0.0 mg/dL 11/14/20 16:23 AST 27 units/L (5-40) 11/15/20 06:18 ALT 20 units/L (7-56) 11/15/20 06:18 Alkaline Phosphatase 184 units/L (35-129) H 11/15/20 06:18 Lactate Dehydrogenase 247 units/L (91-180) H 11/14/20 18:30 Troponin T < 0.010 ng/mL (0.00-0.029) 11/14/20 16:23 C-Reactive Protein 52.00 mg/dL (0.00-1.30) H 11/14/20 18:30 Total Protein 5.8 g/dL (6.3-8.2) L D 11/15/20 06:18 Albumin 2.5 g/dL (3.9-5) L 11/15/20 06:18 Albumin/Globulin Ratio 0.8 % 11/15/20 06:18 Procalcitonin 30.66 ng/mL (<0.15) 11/14/20 18:30 Urine Color Yellow (Yellow) 11/14/20 16:27 Urine Turbidity Cloudy (Clear) 11/14/20 16:27 Urine pH 5.0 (5.0-7.0) 11/14/20 16:27 Ur Specific [place] 1.022 (1.003-1.030) 11/14/20 16:27 Urine Protein 100 mg/dl mg/dL (Negative) 11/14/20 16:27 Urine Glucose (UA) >=500 mg/dL (Negative) 11/14/20 16:27 Urine Ketones 80 mg/dL (Negative) 11/14/20 16:27 Urine Blood Sm (Negative) 11/14/20 16:27 Urine Nitrite Neg (Negative) 11/14/20 16:27 Urine Bilirubin Neg (Negative) 11/14/20 16:27 Urine Urobilinogen < 2.0 mg/dL (<2.0) 11/14/20 16:27 Ur Leukocyte Esterase Neg (Negative) 11/14/20 16:27 Urine WBC (Auto) 38.0 /HPF (0.0-6.0) H 11/14/20 16:27 Urine RBC (Auto) 155.0 /HPF (0.0-6.0) 11/14/20 16:27 U Epithel Cells (Auto) < 1.0 /HPF (0-13.0) 11/14/20 16:27 Urine Bacteria (Auto) 1+ /HPF (Negative) 11/14/20 16:27 Urine Yeast (Budding) 3+ /HPF 11/14/20 16:27 Microbiology: Microbiology 11/14/20 16:23 Peripheral/Venous Blood Culture - Preliminary NO GROWTH AFTER 48 HOURS 11/14/20 16:18 Peripheral/Venous Blood Culture - Preliminary NO GROWTH AFTER 48 HOURS 11/14/20 16:27 Urine,Catheterized - Straight Catheter Urine Culture - Final NO GROWTH AFTER 48 HOURS Verma/IV: Voiding Method Incontinent Active Medications - Current Medications Current Medications: Generic Name Dose Route Start Last Admin Trade Name Freq PRN Reason Stop Dose Admin Acetaminophen 650 mg 11/14/20 18:37 11/16/20 17:23 Acetaminophen 325 Mg Tab PO 650 mg Q6H PRN Administration Pain, Mild (1-3) Citalopram Hydrobromide 20 mg 11/16/20 10:00 11/16/20 11:53 Citalopram 20 Mg Tab PO 20 mg QDAY SHAHLA Administration Dextrose 50 ml 11/15/20 10:20 Dextrose 50% In Water (25gm) 50 Ml Syringe IV Q30MIN PRN Hypoglycemia Protocol Famotidine 20 mg 11/16/20 10:00 11/16/20 11:54 Famotidine 20 Mg Tab PO 20 mg QDAY SHAHLA Administration Heparin Sodium (Porcine) 5,000 unit 11/15/20 22:00 11/16/20 22:41 Heparin 5,000 Unit/1 Ml Vial SUB-Q 5,000 unit Q12HR SHAHLA Administration Ceftriaxone Sodium 2 gm in 100 mls @ 200 mls/hr 11/14/20 19:00 11/16/20 19:40 Rocephin/Ns 2 Gm/100 Ml IV 200 mls/hr Q24H SHAHLA Administration Protocol Azithromycin 500 mg in 250 mls @ 250 mls/hr 11/14/20 19:00 11/16/20 19:47 Zithromax/Ns IV 250 mls/hr Q24H SHAHLA Administration Protocol Dextrose 1,000 mls @ 50 mls/hr 11/16/20 11:00 11/17/20 06:53 D5w IV 50 mls/hr DIRECT SHAHLA Administration Insulin Glargine 14 units 11/16/20 22:00 11/16/20 23:31 Insulin Glargine 100 Units/Ml SUB-Q 14 units QHS SHAHLA Administration Insulin Human Lispro 0 unit 11/15/20 11:30 11/16/20 23:31 Insulin Lispro 100 Unit/Ml SUB-Q 2 unit ACHS SHAHLA Administration Protocol Oxycodone/Acetaminophen 1 tab 11/15/20 11:45 11/15/20 19:56 Oxycodone /Acetaminophen 5-325mg Tab PO 1 tab Q4H PRN Administration Pain, Moderate (4-6) Pravastatin Sodium 40 mg 11/15/20 22:00 11/16/20 22:19 Pravastatin 40 Mg Tab PO Not Given QHS SHAHLA Sodium Chloride 10 ml 11/14/20 22:00 11/16/20 23:32 Sodium Chloride 0.9% 10 Ml Flush Syringe IV 10 ml BID SHAHLA Administration Sodium Chloride 10 ml 11/14/20 18:33 Sodium Chloride 0.9% 10 Ml Flush Syringe IV PRN PRN LINE FLUSH Nutrition/Malnutrition Assess - Dietary Evaluation Nutrition/Malnutrition Findings: Nutrition Notes Start: 11/15/20 10:28 Freq: Status: Active Protocol: Document 11/15/20 10:28 (Rec: 11/15/20 10:35 [email or web address]) Nutrition Notes Need for Assessment generated from: MD Order,Low BMI Initial or Follow up Assessment Current Diagnosis Acute Kidney Injury,Diabetes, Sepsis,Hyperlipidemia Other Pertinent Diagnosis DKA, pneu, COVID PUI, UTI, dementia, debility Current Diet Pureed Labs/Tests Na 148 BUN 33 Cr 1.8 Pertinent Medications D5w/NS with 30 mEq Kcl at 100 ml/hr Height 5 ft 4 in Weight 45.2 kg Jones Body Weight (kg) 54.54 BMI 17.1 Weight change and time frame Per previous visits, pt wt fluctuates between 79-43kg, unsure of UBW for pt. Weight Status Underweight Subjective/Other Information MD order for ONS. Screen for low BMI. Pt is non-verbal. Pt NPO for breakfast this AM. Minimum of two criteria No physical signs of malnutrition #1 Nutrition Diagnosis Predicted suboptimal energy intake Etiology dementia As Evidenced by Signs and Symptoms BMI 17.1 Is patient on ventilator? No Is Patient Ambulatory and/or Out of Bed No REE-([facility]-confined to bed) 1243.140 Calculation Used for Recommendations Sari Alves Additional Notes Protein: (0.8-1.2g/kg) 36-54g Fluid: 1 ml/kcal Nutrition Intervention Change Diet Order: Continue Add Supplement/Snack (indicate name/kcal Glucerna TID /protein ) Provides kCal: 660 Provides Protein (gm) 30 Goal #1 Meet at least 75% of protein and energy needs via PO and ONS intakes Anticipated Discharge Needs: Pureed with ONS PRN Follow-Up By: 11/18/20 Additional Comments FU for intakes and ONS tolerance
[2020-11-17] MEDS: INSULIN LISPRO 100 UNIT/ML SUB-Q SCH ×4 (08:17→22:09)
[2020-11-17] MEDS: HEPARIN 5,000 UNIT/1 ML VIAL SUB-Q SCH ×2 (11:06→21:03)
[2020-11-17] MEDS: FAMOTIDINE 20 MG TAB PO SCH (11:06)
[2020-11-17] MEDS: CITALOPRAM 20 MG TAB PO SCH (11:07)
[2020-11-17 12:19] LABS: Calcium 8.4 mg/dL (8.4-10.2)
[2020-11-17] MEDS ORDERED: POTASSIUM CHLORIDE ER 20 MEQ TAB PO ONE (13:00)
--- NOTE | 2020-11-17 14:12 | Progress Note ---
Assessment and Plan Cultures: 11/14/2020 blood culture: No growth today 11/14/2020 urine culture no growth A/P: 55-year-old female with diabetes, hyperlipidemia, vascular dementia was brought in from the retirement due to confusion. She had COVID-19 in February 2020, now with DKA and: #Sepsis: Remains with fever 101.3 secondary to pneumonia versus UTI +/- pneumonia +/- gingivitis. #Bilateral pneumonia: Aspiration pneumonia versus COVID-19 infection.Chest x-ray with patchy bilateral infiltrates. Procalcitonin is 30.66. #Acute hypoxemic respiratory failure: Currently on 5 L #UTI: UA with pyuria. Admitted with DKA. Follow-up urine culture. #Diabetic ketoacidosis: On insulin drip, in ICU. #Acute encephalopathy: Likely metabolic, sodium very high on admission. Also, reportedly with underlying vascular dementia. #RACH: Renally dose antibiotics. Worsening #Severe gingivitis/periodontitis: necrotizing? Recs: -Continue ceftriaxone and azithromycin -Add metronidazole to cover anaerobes -Dental referral at some point -Follow-up blood and urine culture -Follow-up COVID-19 PCR, even if positive, start steroids / remdesivir -Aspiration precautions Rosalinda Rosario MD [facility] ([facility]) Office [phone] Subjective Date of service: 11/17/20 Principal diagnosis: Pneumonia Interval history: Remains agitated, currently on 5 L nasal cannula, does not follow commands, T- max 101.3 Objective - Exam Narrative Exam: General appearance: Alert in NAD mildly agitated Eyes: anicteric sclerae, moist conjunctivae; no lid-lag; PERRLA HENT: Normocephalic, Atraumatic; normal external ears, nares open, oropharynx limited, extensive gum edema blackish discoloration Neck: supple, tracheal midline, no JVD Lungs: Bilateral crackles CV: Tachycardic Abdomen: Soft, non-tender; no masses or hepatosplenomegaly Extremities: no edema, no cyanosis Skin: No rash. Psych: Mild agitation Neuro: Alert, does not follow commands - Constitutional Vitals: Vital Signs Temp Pulse Resp BP Pulse Ox 98.9 F 96 H 20 116/62 99 11/17/20 04:41 11/17/20 04:41 11/17/20 04:41 11/17/20 04:41 11/17/20 04:41 Temperature -Last 24 Hours Temperature 98.9 F Temperature 99.8 F Temperature 101.3 F - Labs CBC & Chem 7: 11/15/20 06:18 11/17/20 10:30 Labs: Abnormal lab results 11/16/20 11/16/20 11/17/20 Range/Units 17:06 21:07 07:57 Sodium (137-145) mmol/L Potassium (3.6-5.0) mmol/L Chloride (98-107) mmol/L Carbon Dioxide (22-30) mmol/L BUN (7-17) mg/dL Creatinine (0.6-1.2) mg/dL Glucose (65-100) mg/dL POC Glucose 315 H 230 H 253 H (70-105) mg/dL 11/17/20 Range/Units 10:30 Sodium 153 H (137-145) mmol/L Potassium 3.4 L (3.6-5.0) mmol/L Chloride 122.1 H (98-107) mmol/L Carbon Dioxide 19 L (22-30) mmol/L BUN 54 H (7-17) mg/dL Creatinine 3.6 H (0.6-1.2) mg/dL Glucose 108 H (65-100) mg/dL POC Glucose (70-105) mg/dL
[2020-11-17] MEDS: metroNIDAZOLE/NS 500 MG/100 ML 500 MG/100 ML BAG IV SCH ×2 (15:52→22:10)
[2020-11-17] MEDS ORDERED: POTASSIUM CHLORIDE 20 MEQ PACKET PO ONE (16:00)
--- NOTE | 2020-11-17 17:53 | Progress Note ---
Assessment and Plan Acute hypoxemic respiratory failure. Severe sepsis. Diabetic ketoacidosis. Acute kidney injury. Pneumonia. Acute on chronic toxic metabolic encephalopathy. PUI COVID-19 infection. Possible urinary tract infection. Adult failure to thrive. History of diabetes. History of hyperlipidemia. - COVID-19 PCR negative - TRANSITION NURSE evaluation and advance diet per recommendations (she is an aspiration risk) - no new issues otherwise, continue care as below; - continue to wean supplemental oxygen to keep O2 sats > 90% - Bronchodilators (JOANNA) with pulm hygiene per RT - continue to avoid nephrotoxins, renally dose all medications - continue mobility protocols to prevent pressure ulcers - PT/OT as tolerated - Wound care per RN/WCT - continue accuchecks with glycemic control per SSI for target blood glucose < 180 mg/dL - home oxygen evaluation at discharge - GI & VTE prophylaxis - Flu & pneumovax per protocol - Pulmonary out patient follow up for PFTs and optimization of respiratory status - continue other care per attending / other consultants - prn analgesia per pain score ... re-evaluate in am & prn Subjective Date of service: 11/17/20 Principal diagnosis: Ac hypoxemic resp failure; Sepsis; DKA; RACH; Pneumonia; PUI COVID-19 Interval history: Patient is seen today for: Acute hypoxemic respiratory failure; Severe sepsis; DKA; RACH; Pneumonia; PUI COVID-19 Seen and examined at bedside; 24hour events reviewed; nursing and respiratory care staff consulted; no adverse overnight events reported to me; resting peacefully in bed; remains on supplemental oxygen; no emesis or overt aspiration Objective Vital Signs - 12hr 11/17/20 15:00 O2 Sat by Pulse 95 Oximetry Constitutional: appears uncomfortable Eyes: non-icteric ENT: oropharynx moist Neck: supple, no lymphadenopathy, no JVD Effort: mildly labored Ascultation: Bilateral: diminished breath sounds, rhonchi Percussion: Bilateral: not dull Cardiovascular: regular rate and rhythm Gastrointestinal: normoactive bowel sounds, soft, non-tender, non-distended Integumentary: other (see [facility] notes) Extremities: no cyanosis, no edema, pink and warm, pulses normal Neurologic: pupils equal and round, CN II-XII normal, motor strength normal and, other (+ cognitive dysfunction) Psychiatric: other (+ cognitive dysfunction) CBC and BMP: 11/21/20 05:04 11/21/20 05:04 ABG, PT/INR, D-dimer: PT/INR, D-dimer PT 15.3 Sec. (12.2-14.9) H 11/14/20 16:23 INR 1.21 (0.87-1.13) H 11/14/20 16:23 D-Dimer 2876.26 ng/mlDDU (0-234) H 11/14/20 18:30 Abnormal lab findings: Abnormal Labs 11/14/20 11/14/20 11/14/20 16:23 16:23 16:23 WBC 14.5 H RBC 3.48 L Hgb Hct MCV 101 H RDW Seg Neuts % (Manual) 92.0 H Lymphocytes % (Manual) 5.0 L Seg Neutrophils # Man 13.3 H Lymphocytes # (Manual) 0.7 L PT 15.3 H INR 1.21 H APTT 23.1 L D-Dimer VBG pH Sodium Potassium Chloride Carbon Dioxide BUN Creatinine Glucose POC Glucose Hemoglobin A1c Lactic Acid 7.50 H* Calcium Phosphorus Ferritin Alkaline Phosphatase Lactate Dehydrogenase C-Reactive Protein Total Protein Albumin Urine WBC (Auto) 11/14/20 11/14/20 11/14/20 16:23 16:23 16:27 WBC RBC Hgb Hct MCV RDW Seg Neuts % (Manual) Lymphocytes % (Manual) Seg Neutrophils # Man Lymphocytes # (Manual) PT INR APTT D-Dimer VBG pH 7.216 L Sodium 166 H* Potassium Chloride 120.8 H Carbon Dioxide 6 L* BUN 36 H Creatinine 1.9 H Glucose 765 H* POC Glucose Hemoglobin A1c Lactic Acid Calcium 11.4 H Phosphorus Ferritin Alkaline Phosphatase 259 H Lactate Dehydrogenase C-Reactive Protein Total Protein Albumin 3.3 L Urine WBC (Auto) 38.0 H 11/14/20 11/14/20 11/14/20 18:22 18:22 18:22 WBC RBC Hgb Hct MCV RDW Seg Neuts % (Manual) Lymphocytes % (Manual) Seg Neutrophils # Man Lymphocytes # (Manual) PT INR APTT D-Dimer VBG pH Sodium Potassium Chloride Carbon Dioxide 11 L BUN 32 H Creatinine 1.5 H Glucose 695 H* POC Glucose Hemoglobin A1c Lactic Acid 2.60 H* Calcium Phosphorus 1.30 L Ferritin Alkaline Phosphatase Lactate Dehydrogenase C-Reactive Protein Total Protein Albumin Urine WBC (Auto) 11/14/20 11/14/20 11/14/20 18:30 18:30 18:30 WBC RBC Hgb Hct MCV RDW Seg Neuts % (Manual) Lymphocytes % (Manual) Seg Neutrophils # Man Lymphocytes # (Manual) PT INR APTT D-Dimer 2876.26 H VBG pH Sodium Potassium Chloride Carbon Dioxide BUN Creatinine Glucose POC Glucose Hemoglobin A1c Lactic Acid Calcium Phosphorus Ferritin 623.7 H Alkaline Phosphatase Lactate Dehydrogenase 247 H C-Reactive Protein 52.00 H Total Protein Albumin Urine WBC (Auto) 11/14/20 11/14/20 11/14/20 20:23 23:08 23:08 WBC RBC Hgb Hct MCV RDW Seg Neuts % (Manual) Lymphocytes % (Manual) Seg Neutrophils # Man Lymphocytes # (Manual) PT INR APTT D-Dimer VBG pH Sodium Potassium 2.6 L* D Chloride 109.4 H Carbon Dioxide 8 L* 10 L BUN 33 H 32 H Creatinine 1.6 H < 0.2 L D Glucose 753 H* 509 H* POC Glucose Hemoglobin A1c Lactic Acid 5.70 H* Calcium Phosphorus Ferritin Alkaline Phosphatase Lactate Dehydrogenase C-Reactive Protein Total Protein Albumin Urine WBC (Auto) 11/14/20 11/15/20 11/15/20 23:14 00:01 00:54 WBC RBC Hgb Hct MCV RDW Seg Neuts % (Manual) Lymphocytes % (Manual) Seg Neutrophils # Man Lymphocytes # (Manual) PT INR APTT D-Dimer VBG pH Sodium Potassium Chloride Carbon Dioxide BUN Creatinine Glucose POC Glucose 427 H 375 H 280 H Hemoglobin A1c Lactic Acid Calcium Phosphorus Ferritin Alkaline Phosphatase Lactate Dehydrogenase C-Reactive Protein Total Protein Albumin Urine WBC (Auto) 11/15/20 11/15/20 11/15/20 01:58 02:56 04:53 WBC RBC Hgb Hct MCV RDW Seg Neuts % (Manual) Lymphocytes % (Manual) Seg Neutrophils # Man Lymphocytes # (Manual) PT INR APTT D-Dimer VBG pH Sodium Potassium Chloride Carbon Dioxide BUN Creatinine Glucose POC Glucose 191 H 124 H 140 H Hemoglobin A1c Lactic Acid Calcium Phosphorus Ferritin Alkaline Phosphatase Lactate Dehydrogenase C-Reactive Protein Total Protein Albumin Urine WBC (Auto) 11/15/20 11/15/20 11/15/20 06:18 06:18 06:18 WBC RBC 2.74 L Hgb 8.9 L Hct 26.1 L D MCV RDW 12.8 L Seg Neuts % (Manual) 81.0 H Lymphocytes % (Manual) Seg Neutrophils # Man 8.7 H Lymphocytes # (Manual) PT INR APTT D-Dimer VBG pH Sodium 149 H 149 H Potassium Chloride 116.2 H 117.4 H Carbon Dioxide 20 L D 20 L BUN 33 H 32 H Creatinine 1.6 H D 1.6 H Glucose 236 H 231 H POC Glucose Hemoglobin A1c Lactic Acid Calcium Phosphorus Ferritin Alkaline Phosphatase 184 H Lactate Dehydrogenase C-Reactive Protein Total Protein 5.8 L D Albumin 2.5 L Urine WBC (Auto) 11/15/20 11/15/20 11/15/20 06:24 10:15 10:18 WBC RBC Hgb Hct MCV RDW Seg Neuts % (Manual) Lymphocytes % (Manual) Seg Neutrophils # Man Lymphocytes # (Manual) PT INR APTT D-Dimer VBG pH Sodium 148 H Potassium Chloride 116.4 H Carbon Dioxide 19 L BUN 33 H Creatinine 1.8 H Glucose 133 H POC Glucose 223 H Hemoglobin A1c 10.8 H Lactic Acid Calcium Phosphorus Ferritin Alkaline Phosphatase Lactate Dehydrogenase C-Reactive Protein Total Protein Albumin Urine WBC (Auto) 11/15/20 11/15/20 11/15/20 12:20 17:44 18:31 WBC RBC Hgb Hct MCV RDW Seg Neuts % (Manual) Lymphocytes % (Manual) Seg Neutrophils # Man Lymphocytes # (Manual) PT INR APTT D-Dimer VBG pH Sodium 149 H Potassium Chloride 114.2 H Carbon Dioxide 15 L BUN 37 H Creatinine 2.0 H Glucose 400 H POC Glucose 266 H 350 H Hemoglobin A1c Lactic Acid Calcium Phosphorus Ferritin Alkaline Phosphatase Lactate Dehydrogenase C-Reactive Protein Total Protein Albumin Urine WBC (Auto) 11/15/20 11/16/20 11/16/20 21:40 07:00 07:56 WBC RBC Hgb Hct MCV RDW Seg Neuts % (Manual) Lymphocytes % (Manual) Seg Neutrophils # Man Lymphocytes # (Manual) PT INR APTT D-Dimer VBG pH Sodium 152 H Potassium Chloride 118.9 H Carbon Dioxide 17 L BUN 43 H Creatinine 2.7 H Glucose 204 H POC Glucose 195 H 222 H Hemoglobin A1c Lactic Acid Calcium 8.0 L Phosphorus 4.70 H D Ferritin Alkaline Phosphatase Lactate Dehydrogenase C-Reactive Protein Total Protein Albumin Urine WBC (Auto) 11/16/20 11/16/20 11/16/20 11:40 17:06 21:07 WBC RBC Hgb Hct MCV RDW Seg Neuts % (Manual) Lymphocytes % (Manual) Seg Neutrophils # Man Lymphocytes # (Manual) PT INR APTT D-Dimer VBG pH Sodium Potassium Chloride Carbon Dioxide BUN Creatinine Glucose POC Glucose 201 H 315 H 230 H Hemoglobin A1c Lactic Acid Calcium Phosphorus Ferritin Alkaline Phosphatase Lactate Dehydrogenase C-Reactive Protein Total Protein Albumin Urine WBC (Auto) 11/17/20 11/17/20 11/17/20 07:57 10:30 11:17 WBC RBC Hgb Hct MCV RDW Seg Neuts % (Manual) Lymphocytes % (Manual) Seg Neutrophils # Man Lymphocytes # (Manual) PT INR APTT D-Dimer VBG pH Sodium 153 H Potassium 3.4 L Chloride 122.1 H Carbon Dioxide 19 L BUN 54 H Creatinine 3.6 H Glucose 108 H POC Glucose 253 H 106 H Hemoglobin A1c Lactic Acid Calcium Phosphorus Ferritin Alkaline Phosphatase Lactate Dehydrogenase C-Reactive Protein Total Protein Albumin Urine WBC (Auto) 11/17/20 16:00 WBC RBC Hgb Hct MCV RDW Seg Neuts % (Manual) Lymphocytes % (Manual) Seg Neutrophils # Man Lymphocytes # (Manual) PT INR APTT D-Dimer VBG pH Sodium Potassium Chloride Carbon Dioxide BUN Creatinine Glucose POC Glucose 198 H Hemoglobin A1c Lactic Acid Calcium Phosphorus Ferritin Alkaline Phosphatase Lactate Dehydrogenase C-Reactive Protein Total Protein Albumin Urine WBC (Auto) Allied health notes reviewed: nursing
--- NOTE | 2020-11-17 18:42 | Progress Note ---
Assessment and Plan 1. Acute kidney injury: Vasomotor RACH superimposed on CKD in the setting of sepsis. ATN likely. Renal US negative for hydro. Urine studies ordered. Monitor renal function. Creatinine level increasing. Renal prognosis is guarded. Avoid nephrotoxic agents. Meds dosage based on GFR. Monitor for [employer] needs. 2. FEN: Hypernatremia, hypotonic IV fluids. Hyperchloremic metabolic acidosis, continue IV D5W, monitor. Monitor lytes and volume status. 3. Sepsis: Likely 2/2 PNA. Pending Covid test. Continue abx. Follow cultures. 4. Bilateral PNA: Abx. 5. COVID-19 PUI. Follow results. 6. DKA: Improved. 7. Anemia: Monitor. 8. HTN: Monitor BP. 9. Metabolic encephalopathy, POA. - Subjective: Patient was seen and examined at the bedside. - General Appearance: General appearance: appears stated age, not in distress, appears chronically ill HEENT: ATNC, CAITY Neck: Trachea midline Respiratory: coarse breath sounds Cardiology: regular, S1S2, no murmur Gastrointestinal: normoactive bowel sounds, not tender, not distended Integumentary: no rash, warm and dry Neurologic: lethargic, not following any command, non-verbal Ext: no edema Subjective Date of service: 11/17/20 Principal diagnosis: Ac hypoxemic resp failure; Sepsis; DKA; RACH; Pneumonia; PUI COVID-19 Objective - Vital Signs Vital signs: Vital Signs - 12hr 11/17/20 11/17/20 11/17/20 12:38 15:00 18:19 Temperature 97.9 F 99.5 F Pulse Rate 106 H 96 H Respiratory 19 19 Rate Blood Pressure 142/68 118/72 O2 Sat by Pulse 98 95 97 Oximetry - Lab 11/15/20 06:18 11/17/20 10:30 Most recent lab results Calcium 8.4 mg/dL (8.4-10.2) 11/17/20 10:30 Phosphorus 4.70 mg/dL (2.5-4.5) H D 11/16/20 07:00 Magnesium 2.20 mg/dL (1.7-2.3) 11/14/20 18:22 Medications & Allergies - Medications Allergies/Adverse Reactions: Allergies No Known Allergies Allergy (Verified 02/26/20 10:24) Home Medications: Home Medications Medication Instructions Recorded Confirmed Last Taken Type Citalopram [Celexa] 20 mg PO QDAY 01/25/20 03/06/20 Unknown History Pravastatin [Pravachol] 40 mg PO QHS 01/25/20 03/06/20 Unknown History Acetaminophen [Mapap] 650 mg PO BID PRN 02/26/20 03/06/20 Unknown History Ascorbic Acid [Vitamin C with Chetna 500 mg PO DAILY 02/26/20 03/06/20 Unknown History Hips] Glimepiride [Amaryl] 4 mg PO QAM 02/26/20 03/06/20 Unknown History Insulin Lispro [Humalog] 5 units SQ AC 02/26/20 03/06/20 Unknown History Multivit-Min/Ferrous Fumarate 15 mg PO DAILY 02/26/20 03/06/20 Unknown History [Multivitamin with Minerals Tab] Apixaban [Eliquis] 2.5 mg PO BID #30 tablet 03/01/20 03/06/20 Unknown Rx Active Medications: Generic Name Dose Route Start Last Admin Trade Name Lulu PRN Reason Stop Dose Admin Acetaminophen 650 mg 11/14/20 18:37 11/16/20 17:23 Acetaminophen 325 Mg Tab PO 650 mg Q6H PRN Administration Pain, Mild (1-3) Citalopram Hydrobromide 20 mg 11/16/20 10:00 11/17/20 11:07 Citalopram 20 Mg Tab PO 20 mg QDAY SHAHLA Administration Dextrose 50 ml 11/15/20 10:20 Dextrose 50% In Water (25gm) 50 Ml Syringe IV Q30MIN PRN Hypoglycemia Protocol Famotidine 20 mg 11/16/20 10:00 11/17/20 11:06 Famotidine 20 Mg Tab PO 20 mg QDAY SHAHLA Administration Heparin Sodium (Porcine) 5,000 unit 11/15/20 22:00 11/17/20 11:06 Heparin 5,000 Unit/1 Ml Vial SUB-Q 5,000 unit Q12HR SHAHLA Administration Ceftriaxone Sodium 2 gm in 100 mls @ 200 mls/hr 11/14/20 19:00 11/16/20 19:40 Rocephin/Ns 2 Gm/100 Ml IV 200 mls/hr Q24H SHAHLA Administration Protocol Azithromycin 500 mg in 250 mls @ 250 mls/hr 11/14/20 19:00 11/16/20 19:47 Zithromax/Ns IV 250 mls/hr Q24H SHAHLA Administration Protocol Dextrose 1,000 mls @ 50 mls/hr 11/16/20 11:00 11/17/20 06:53 D5w IV 50 mls/hr DIRECT SHAHLA Administration Metronidazole 500 mg in 100 mls @ 100 mls/hr 11/17/20 15:00 11/17/20 15:52 Flagyl 500 Mg/100 Ml IV 100 mls/hr Q8HR SHAHLA Administration Protocol Insulin Glargine 14 units 11/16/20 22:00 11/16/20 23:31 Insulin Glargine 100 Units/Ml SUB-Q 14 units QHS SHAHLA Administration Insulin Human Lispro 0 unit 11/15/20 11:30 11/17/20 17:55 Insulin Lispro 100 Unit/Ml SUB-Q 1 unit ACHS SHAHLA Administration Protocol Oxycodone/Acetaminophen 1 tab 11/15/20 11:45 11/15/20 19:56 Oxycodone /Acetaminophen 5-325mg Tab PO 1 tab Q4H PRN Administration Pain, Moderate (4-6) Pravastatin Sodium 40 mg 11/15/20 22:00 11/16/20 22:19 Pravastatin 40 Mg Tab PO Not Given QHS SHAHLA Sodium Chloride 10 ml 11/14/20 22:00 11/17/20 11:08 Sodium Chloride 0.9% 10 Ml Flush Syringe IV 10 ml BID SHAHLA Administration Sodium Chloride 10 ml 11/14/20 18:33 Sodium Chloride 0.9% 10 Ml Flush Syringe IV PRN PRN LINE FLUSH
[2020-11-17] MEDS: cefTRIAXone/NS 2 GM/100 ML 2 GM/100 ML BAG IV SCH (19:58)
[2020-11-17 20:34] LABS: Creatinine,Urine 67.2 mg/dL (0.1-20.0)
[2020-11-17] MEDS: AZITHROMYCIN/NS 500 MG/250 ML 500 MG/250 ML BAG IV SCH (20:41)
[2020-11-17 20:47] LABS: Bacteria,Urine 1+ /HPF (Negative); Bilirubin,Urine NEG (Negative); Blood,Urine MOD (Negative); Color,Urine Yellow (Yellow); Urobilinogen,Urine < 2.0 mg/dL (<2.0)
[2020-11-17] MEDS: INSULIN GLARGINE 100 UNITS/ML SUB-Q SCH (22:08)
[2020-11-17] MEDS: PRAVASTATIN 40 MG TAB PO SCH (22:56)
[2020-11-18] MEDS: metroNIDAZOLE/NS 500 MG/100 ML 500 MG/100 ML BAG IV SCH ×3 (05:11→22:53)
[2020-11-18] MEDS: INSULIN LISPRO 100 UNIT/ML SUB-Q SCH ×4 (07:51→22:30)
--- NOTE | 2020-11-18 07:52 | Progress Note ---
Assessment and Plan Assessment and plan: This is a 55-year-old female who is a resident of [facility] with vascular dementia, depression, developmental delay, debility, diabetes mellitus, hyperlipidemia, recent COVID 19 infection, chronic kidney disease and recurrent DKA who presents the emergency department on 11/14 with reported confusion and ill-appearing over the past day and hypoglycemia. Evaluation in the emergency department revealed sepsis with tachycardia, febrile to 102.8, tachypnea, lactic acidosis and RACH suspected secondary to urinary tract infection/?covid 19 pna, diabetic ketoacidosis, metabolic acidosis, toxic metabolic encephalopathy, acute kidney injury and hypernatremia. Patient was in itiated sepsis, COVID-19 and DKA protocol admitted hospital service with consults to [facility] and nutrition. Sepsis Covid 19 DKA-resolved RACH Toxic metabolic encephalopathy Bilateral pneumonia Urinary tract infection Leukocytosis Hypernaturemia, improving Hyperchloremia, improving Lactic acidosis, resolved Hypophosphatemia Hypokalemia, resolved Elevated ddimer 11/15: Patient has been transitioned to sliding scale insulin and started on a pured diet. Per SNF patient has completed antibiotic therapy for her mouth. Her leukocytosis, hypernatremia, hyperchloremia, metabolic acidosis have improved. She has worsening kidney function. ID consulted today. 11/16: Continue IV antibiotics of ceftriaxone and azithromycin per ID recommendations. Patient has been transitioned from IV insulin drip to long- acting insulin of Lantus 14 units at bedtime. Patient does have acute kidney injury likely secondary to sepsis/ATN +/- vasomotor nephropathy. Creatinine is worse today at 2.7. Consult nephrology for further evaluation. Check CT scan of the abdomen pelvis. 11/17: Continue antibiotics per ID recommendations. Patient appears to have pneumonia and UTI. Blood and urine cultures remain negative x48 hours. Follow- up COVID-[address] scan shows a nonobstructing calculus in the right kidney. Follow-up BMP to assess renal function 11/18: Continue ceftriaxone, itraconazole and azithromycin for sepsis secondary to pneumonia/UTI. Procalcitonin elevated at 30.66. Chest x-ray revealed patchy b ilateral infiltrates. Etiology aspiration pneumonia versus COVID-19. COVID-19 PCR pending. Blood and urine cultures remain negative. Nephrology following for acute kidney injury. Creatinine worsened. Follow-up BMP this morning. CT scan negative for obstruction. History Interval history: No new issues overnight Hospitalist Physical - Constitutional Vitals: Temp Pulse Resp BP Pulse Ox 98.0 F 85 18 115/63 98 11/18/20 04:20 11/18/20 04:20 11/18/20 04:20 11/18/20 04:20 11/18/20 04:20 General appearance: Present: no acute distress, disheveled - EENT Eyes: Present: PERRL, EOM intact ENT: hearing intact, clear oral mucosa, dentition normal - Neck Neck: Present: supple, normal ROM - Respiratory Respiratory effort: normal Respiratory: bilateral: CTA - Cardiovascular Rhythm: regular Heart Sounds: Present: S1 & S2. Absent: gallop, rub - Extremities Extremities: no ischemia, No edema, Full ROM - Abdominal General gastrointestinal: soft, non-tender, non-distended, normal bowel sounds - Integumentary Integumentary: Present: clear, warm, dry - Neurologic Neurologic: CNII-XII intact, moves all extremities HEART Score - HEART Score Troponin: Troponin T < 0.010 ng/mL (0.00-0.029) 11/14/20 16:23 Results - Labs CBC & Chem 7: 11/15/20 06:18 11/17/20 10:30 Labs: Laboratory Last Values WBC 10.7 K/mm3 (4.5-11.0) 11/15/20 06:18 RBC 2.74 M/mm3 (3.65-5.03) L 11/15/20 06:18 Hgb 8.9 gm/dl (10.1-14.3) L 11/15/20 06:18 Hct 26.1 % (30.3-42.9) L D 11/15/20 06:18 MCV 95 fl (79-97) 11/15/20 06:18 MCH 32 pg (28-32) 11/15/20 06:18 MCHC 34 % (30-34) 11/15/20 06:18 RDW 12.8 % (13.2-15.2) L 11/15/20 06:18 Plt Count 142 K/mm3 (140-440) 11/15/20 06:18 Add Manual Diff Complete 11/15/20 06:18 Total Counted 100 11/15/20 06:18 Seg Neutrophils % Momd Teacher 11/14/20 16:23 Seg Neuts % (Manual) 81.0 % (40.0-70.0) H 11/15/20 06:18 Band Neutrophils % 2.0 % 11/15/20 06:18 Lymphocytes % (Manual) 15.0 % (13.4-35.0) 11/15/20 06:18 Monocytes % (Manual) 1.0 % (0.0-7.3) 11/15/20 06:18 Metamyelocytes % 1.0 % 11/15/20 06:18 Nucleated RBC % Not Reportable 11/15/20 06:18 Seg Neutrophils # Man 8.7 K/mm3 (1.8-7.7) H 11/15/20 06:18 Band Neutrophils # 0.2 K/mm3 11/15/20 06:18 Lymphocytes # (Manual) 1.6 K/mm3 (1.2-5.4) 11/15/20 06:18 Abs React Lymphs (Man) 0.0 K/mm3 11/15/20 06:18 Monocytes # (Manual) 0.1 K/mm3 (0.0-0.8) 11/15/20 06:18 Eosinophils # (Manual) 0.0 K/mm3 (0.0-0.4) 11/15/20 06:18 Basophils # (Manual) 0.0 K/mm3 (0.0-0.1) 11/15/20 06:18 Metamyelocytes # 0.1 K/mm3 11/15/20 06:18 Myelocytes # 0.0 K/mm3 11/15/20 06:18 Promyelocytes # 0.0 K/mm3 11/15/20 06:18 Blast Cells # 0.0 K/mm3 11/15/20 06:18 WBC Morphology Not Reportable 11/15/20 06:18 Hypersegmented Neuts Not Reportable 11/15/20 06:18 Hyposegmented Neuts Not Reportable 11/15/20 06:18 Hypogranular Neuts Not Reportable 11/15/20 06:18 Smudge Cells Not Reportable 11/15/20 06:18 Toxic Granulation Not Reportable 11/15/20 06:18 Toxic Vacuolation Not Reportable 11/15/20 06:18 Dohle Bodies Not Reportable 11/15/20 06:18 Pelger-Huet Anomaly Not Reportable 11/15/20 06:18 Jamia Rods Not Reportable 11/15/20 06:18 Platelet Estimate Consistent w auto 11/15/20 06:18 Clumped Platelets Not Reportable 11/15/20 06:18 Plt Clumps, EDTA Not Reportable 11/15/20 06:18 Large Platelets Not Reportable 11/15/20 06:18 Giant Platelets Not Reportable 11/15/20 06:18 Platelet Satelliting Not Reportable 11/15/20 06:18 Plt Morphology Comment Not Reportable 11/15/20 06:18 RBC Morphology Normal 11/15/20 06:18 Dimorphic RBCs Not Reportable 11/15/20 06:18 Polychromasia Not Reportable 11/15/20 06:18 Hypochromasia Not Reportable 11/15/20 06:18 Poikilocytosis Not Reportable 11/15/20 06:18 Anisocytosis Not Reportable 11/15/20 06:18 Microcytosis Not Reportable 11/15/20 06:18 Macrocytosis Not Reportable 11/15/20 06:18 Spherocytes Not Reportable 11/15/20 06:18 Pappenheimer Bodies Not Reportable 11/15/20 06:18 Sickle Cells Not Reportable 11/15/20 06:18 Target Cells Not Reportable 11/15/20 06:18 Tear Drop Cells Not Reportable 11/15/20 06:18 Ovalocytes Not Reportable 11/15/20 06:18 Helmet Cells Not Reportable 11/15/20 06:18 [place] Bodies Not Reportable 11/15/20 06:18 Victoria Rings Not Reportable 11/15/20 06:18 Luis Cells Not Reportable 11/15/20 06:18 Bite Cells Not Reportable 11/15/20 06:18 Crenated Cell Not Reportable 11/15/20 06:18 Elliptocytes Not Reportable 11/15/20 06:18 Acanthocytes (Spur) Not Reportable 11/15/20 06:18 Rouleaux Not Reportable 11/15/20 06:18 Hemoglobin C Crystals Not Reportable 11/15/20 06:18 Schistocytes Not Reportable 11/15/20 06:18 Malaria parasites Not Reportable 11/15/20 06:18 Felice Bodies Not Reportable 11/15/20 06:18 Hem Pathologist Commnt No 11/15/20 06:18 PT 15.3 Sec. (12.2-14.9) H 11/14/20 16:23 INR 1.21 (0.87-1.13) H 11/14/20 16:23 APTT 23.1 Sec. (24.2-36.6) L 11/14/20 16:23 D-Dimer 2876.26 ng/mlDDU (0-234) H 11/14/20 18:30 VBG pH 7.216 (7.320-7.420) L 11/14/20 16:23 Sodium 153 mmol/L (137-145) H 11/17/20 10:30 Potassium 3.4 mmol/L (3.6-5.0) L 11/17/20 10:30 Chloride 122.1 mmol/L (98-107) H 11/17/20 10:30 Carbon Dioxide 19 mmol/L (22-30) L 11/17/20 10:30 Anion Gap 15 mmol/L 11/17/20 10:30 BUN 54 mg/dL (7-17) H 11/17/20 10:30 Creatinine 3.6 mg/dL (0.6-1.2) H 11/17/20 10:30 Estimated GFR 13 ml/min 11/17/20 10:30 BUN/Creatinine Ratio 15 % 11/17/20 10:30 Glucose 108 mg/dL (65-100) H 11/17/20 10:30 POC Glucose 193 mg/dL (70-105) H 11/17/20 21:23 Hemoglobin A1c 10.8 % (4-6) H 11/15/20 10:15 Ketones Quantitative Moderate (Negative) 11/14/20 16:23 Lactic Acid 1.60 mmol/L (0.7-2.0) 11/15/20 06:18 Calcium 8.4 mg/dL (8.4-10.2) 11/17/20 10:30 Phosphorus 4.70 mg/dL (2.5-4.5) H D 11/16/20 07:00 Magnesium 2.20 mg/dL (1.7-2.3) 11/14/20 18:22 Ferritin 623.7 ng/mL (10.0-200.0) H 11/14/20 18:30 Total Bilirubin < 0.20 mg/dL (0.1-1.2) 11/15/20 06:18 Direct Bilirubin < 0.2 mg/dL (0-0.2) 11/14/20 16:23 Indirect Bilirubin 0.0 mg/dL 11/14/20 16:23 AST 27 units/L (5-40) 11/15/20 06:18 ALT 20 units/L (7-56) 11/15/20 06:18 Alkaline Phosphatase 184 units/L (35-129) H 11/15/20 06:18 Lactate Dehydrogenase 247 units/L (91-180) H 11/14/20 18:30 Troponin T < 0.010 ng/mL (0.00-0.029) 11/14/20 16:23 C-Reactive Protein 52.00 mg/dL (0.00-1.30) H 11/14/20 18:30 Total Protein 5.8 g/dL (6.3-8.2) L D 11/15/20 06:18 Albumin 2.5 g/dL (3.9-5) L 11/15/20 06:18 Albumin/Globulin Ratio 0.8 % 11/15/20 06:18 Procalcitonin 30.66 ng/mL (<0.15) 11/14/20 18:30 Urine Color Yellow (Yellow) 11/17/20 20:20 Urine Turbidity Cloudy (Clear) 11/17/20 20:20 Urine pH 5.0 (5.0-7.0) 11/17/20 20:20 Ur Specific Tamms 1.015 (1.003-1.030) 11/17/20 20:20 Urine Protein 100 mg/dl mg/dL (Negative) 11/17/20 20:20 Urine Glucose (UA) 150 mg/dL (Negative) 11/17/20 20:20 Urine Ketones Neg mg/dL (Negative) 11/17/20 20:20 Urine Blood Mod (Negative) 11/17/20 20:20 Urine Nitrite Neg (Negative) 11/17/20 20:20 Urine Bilirubin Neg (Negative) 11/17/20 20:20 Urine Urobilinogen < 2.0 mg/dL (<2.0) 11/17/20 20:20 Ur Leukocyte Esterase Mod (Negative) 11/17/20 20:20 Urine WBC (Auto) 66.0 /HPF (0.0-6.0) H 11/17/20 20:20 Urine RBC (Auto) 59.0 /HPF (0.0-6.0) 11/17/20 20:20 U Epithel Cells (Auto) 1.0 /HPF (0-13.0) 11/17/20 20:20 Urine Bacteria (Auto) 1+ /HPF (Negative) 11/17/20 20:20 Urine Yeast (Budding) 3+ /HPF 11/17/20 20:20 Urine Creatinine 67.2 mg/dL (0.1-20.0) H 11/17/20 20:20 Urine Sodium 74 mmol/L 11/17/20 20:20 Microbiology: Microbiology 11/14/20 16:23 Peripheral/Venous Blood Culture - Preliminary NO GROWTH AFTER 72 HOURS 11/14/20 16:18 Peripheral/Venous Blood Culture - Preliminary NO GROWTH AFTER 72 HOURS Verma/IV: Voiding Method Incontinent Active Medications - Current Medications Current Medications: Generic Name Dose Route Start Last Admin Trade Name Freq PRN Reason Stop Dose Admin Acetaminophen 650 mg 11/14/20 18:37 11/16/20 17:23 Acetaminophen 325 Mg Tab PO 650 mg Q6H PRN Administration Pain, Mild (1-3) Citalopram Hydrobromide 20 mg 11/16/20 10:00 11/17/20 11:07 Citalopram 20 Mg Tab PO 20 mg QDAY SHAHLA Administration Dextrose 50 ml 11/15/20 10:20 Dextrose 50% In Water (25gm) 50 Ml Syringe IV Q30MIN PRN Hypoglycemia Protocol Famotidine 20 mg 11/16/20 10:00 11/17/20 11:06 Famotidine 20 Mg Tab PO 20 mg QDAY SHAHLA Administration Heparin Sodium (Porcine) 5,000 unit 11/15/20 22:00 11/17/20 21:03 Heparin 5,000 Unit/1 Ml Vial SUB-Q 5,000 unit Q12HR SHAHLA Administration Ceftriaxone Sodium 2 gm in 100 mls @ 200 mls/hr 11/14/20 19:00 11/17/20 19:58 Rocephin/Ns 2 Gm/100 Ml IV 200 mls/hr Q24H SHAHLA Administration Protocol Azithromycin 500 mg in 250 mls @ 250 mls/hr 11/14/20 19:00 11/17/20 20:41 Zithromax/Ns IV 250 mls/hr Q24H SHAHLA Administration Protocol Dextrose 1,000 mls @ 50 mls/hr 11/16/20 11:00 11/17/20 06:53 D5w IV 50 mls/hr DIRECT SHAHLA Administration Metronidazole 500 mg in 100 mls @ 100 mls/hr 11/17/20 15:00 11/18/20 05:11 Flagyl 500 Mg/100 Ml IV 100 mls/hr Q8HR SHAHLA Administration Protocol Insulin Glargine 14 units 11/16/20 22:00 11/17/20 22:08 Insulin Glargine 100 Units/Ml SUB-Q 14 units QHS SHAHLA Administration Insulin Human Lispro 0 unit 11/15/20 11:30 11/17/20 22:09 Insulin Lispro 100 Unit/Ml SUB-Q 1 unit ACHS SHAHLA Administration Protocol Oxycodone/Acetaminophen 1 tab 11/15/20 11:45 11/15/20 19:56 Oxycodone /Acetaminophen 5-325mg Tab PO 1 tab Q4H PRN Administration Pain, Moderate (4-6) Pravastatin Sodium 40 mg 11/15/20 22:00 11/17/20 22:56 Pravastatin 40 Mg Tab PO Not Given QHS SHAHLA Sodium Chloride 10 ml 11/14/20 22:00 11/17/20 22:11 Sodium Chloride 0.9% 10 Ml Flush Syringe IV 10 ml BID SHAHLA Administration Sodium Chloride 10 ml 11/14/20 18:33 Sodium Chloride 0.9% 10 Ml Flush Syringe IV PRN PRN LINE FLUSH Nutrition/Malnutrition Assess - Dietary Evaluation Nutrition/Malnutrition Findings: Nutrition Notes Start: 11/15/20 10:28 Freq: Status: Active Protocol: Document 11/15/20 10:28 LISA (Rec: 11/15/20 10:35 LISA [id number]) Nutrition Notes Need for Assessment generated from: MD Order,Low BMI Initial or Follow up Assessment Current Diagnosis Acute Kidney Injury,Diabetes, Sepsis,Hyperlipidemia Other Pertinent Diagnosis DKA, pneu, COVID PUI, UTI, dementia, debility Current Diet Pureed Labs/Tests Na 148 BUN 33 Cr 1.8 Pertinent Medications D5w/NS with 30 mEq Kcl at 100 ml/hr Height 5 ft 4 in Weight 45.2 kg [place] Body Weight (kg) 54.54 BMI 17.1 Weight change and time frame Per previous visits, pt wt fluctuates between 79-43kg, unsure of UBW for pt. Weight Status Underweight Subjective/Other Information MD order for ONS. Screen for low BMI. Pt is non-verbal. Pt NPO for breakfast this AM. Minimum of two criteria No physical signs of malnutrition #1 Nutrition Diagnosis Predicted suboptimal energy intake Etiology dementia As Evidenced by Signs and Symptoms BMI 17.1 Is patient on ventilator? No Is Patient Ambulatory and/or Out of Bed No REE-([place]-[facility]. Jeor-confined to bed) 1243.140 Calculation Used for Recommendations [facility] Additional Notes Protein: (0.8-1.2g/kg) 36-54g Fluid: 1 ml/kcal Nutrition Intervention Change Diet Order: Continue Add Supplement/Snack (indicate name/kcal Glucerna TID /protein ) Provides kCal: 660 Provides Protein (gm) 30 Goal #1 Meet at least 75% of protein and energy needs via PO and ONS intakes Anticipated Discharge Needs: Pureed with ONS PRN Follow-Up By: 11/18/20 Additional Comments FU for intakes and ONS tolerance
--- NOTE | 2020-11-18 09:31 | Progress Note ---
Assessment and Plan 1. Acute kidney injury: Vasomotor RACH superimposed on CKD in the setting of sepsis. ATN likely. Renal US and CT abdomen negative for hydro. Monitor renal function. Creatinine level increasing. Renal prognosis is guarded. Avoid nephrotoxic agents. Meds dosage based on GFR. Monitor for WELLNESS NURSE RN needs. 2. FEN: Hypernatremia, hypotonic IV fluids. Hyperchloremic metabolic acidosis, continue IV D5W, monitor. Monitor lytes and volume status. 3. Sepsis: Likely 2/2 PNA. Pending Covid test. Continue abx. Follow cultures. 4. Bilateral PNA: Abx. Covid test negative. 5. DKA: Improved. 6. Anemia: Monitor. 7. HTN: Monitor BP. 8. Metabolic encephalopathy, POA. - Subjective: Patient was seen and examined at the bedside. - General Appearance: General appearance: appears stated age, not in distress, appears chronically ill HEENT: ATNC, CAITY Neck: Trachea midline Respiratory: coarse breath sounds Cardiology: regular, S1S2, no murmur Gastrointestinal: normoactive bowel sounds, not tender, not distended Integumentary: no rash, warm and dry Neurologic: lethargic, not following any command, non-verbal Ext: no edema Subjective Date of service: 11/18/20 Principal diagnosis: Ac hypoxemic resp failure; Sepsis; DKA; RACH; Pneumonia; PUI COVID-19 Objective - Vital Signs Vital signs: Vital Signs - 12hr 11/17/20 11/17/20 11/18/20 22:14 23:26 04:20 Temperature 98.0 F Pulse Rate 87 85 Respiratory 20 18 Rate Blood Pressure 109/67 115/63 O2 Sat by Pulse 96 100 98 Oximetry - Lab 11/18/20 09:23 11/18/20 09:23 Most recent lab results Calcium 8.4 mg/dL (8.4-10.2) 11/17/20 10:30 Phosphorus 4.70 mg/dL (2.5-4.5) H D 11/16/20 07:00 Magnesium 2.20 mg/dL (1.7-2.3) 11/14/20 18:22 Urine Creatinine 67.2 mg/dL (0.1-20.0) H 11/17/20 20:20 Urine Sodium 74 mmol/L 11/17/20 20:20 Medications & Allergies - Medications Allergies/Adverse Reactions: Allergies No Known Allergies Allergy (Verified 02/26/20 10:24) Home Medications: Home Medications Medication Instructions Recorded Confirmed Last Taken Type Citalopram [Celexa] 20 mg PO QDAY 01/25/20 03/06/20 Unknown History Pravastatin [Pravachol] 40 mg PO QHS 01/25/20 03/06/20 Unknown History Acetaminophen [Mapap] 650 mg PO BID PRN 02/26/20 03/06/20 Unknown History Ascorbic Acid [Vitamin C with Chetna 500 mg PO DAILY 02/26/20 03/06/20 Unknown History Hips] Glimepiride [Amaryl] 4 mg PO QAM 02/26/20 03/06/20 Unknown History Insulin Lispro [Humalog] 5 units SQ AC 02/26/20 03/06/20 Unknown History Multivit-Min/Ferrous Fumarate 15 mg PO DAILY 02/26/20 03/06/20 Unknown History [Multivitamin with Minerals Tab] Apixaban [Eliquis] 2.5 mg PO BID #30 tablet 03/01/20 03/06/20 Unknown Rx Active Medications: Generic Name Dose Route Start Last Admin Trade Name Freq PRN Reason Stop Dose Admin Acetaminophen 650 mg 11/14/20 18:37 11/16/20 17:23 Acetaminophen 325 Mg Tab PO 650 mg Q6H PRN Administration Pain, Mild (1-3) Citalopram Hydrobromide 20 mg 11/16/20 10:00 11/17/20 11:07 Citalopram 20 Mg Tab PO 20 mg QDAY SHAHLA Administration Dextrose 50 ml 11/15/20 10:20 Dextrose 50% In Water (25gm) 50 Ml Syringe IV Q30MIN PRN Hypoglycemia Protocol Famotidine 20 mg 11/16/20 10:00 11/17/20 11:06 Famotidine 20 Mg Tab PO 20 mg QDAY SHAHLA Administration Heparin Sodium (Porcine) 5,000 unit 11/15/20 22:00 11/17/20 21:03 Heparin 5,000 Unit/1 Ml Vial SUB-Q 5,000 unit Q12HR SHAHLA Administration Ceftriaxone Sodium 2 gm in 100 mls @ 200 mls/hr 11/14/20 19:00 11/17/20 19:58 Rocephin/Ns 2 Gm/100 Ml IV 200 mls/hr Q24H SHAHLA Administration Protocol Azithromycin 500 mg in 250 mls @ 250 mls/hr 11/14/20 19:00 11/17/20 20:41 Zithromax/Ns IV 250 mls/hr Q24H SHAHLA Administration Protocol Dextrose 1,000 mls @ 50 mls/hr 11/16/20 11:00 11/17/20 06:53 D5w IV 50 mls/hr DIRECT SHAHLA Administration Metronidazole 500 mg in 100 mls @ 100 mls/hr 11/17/20 15:00 11/18/20 05:11 Flagyl 500 Mg/100 Ml IV 100 mls/hr Q8HR SHAHLA Administration Protocol Insulin Glargine 14 units 11/16/20 22:00 11/17/20 22:08 Insulin Glargine 100 Units/Ml SUB-Q 14 units QHS SHAHLA Administration Insulin Human Lispro 0 unit 11/15/20 11:30 11/17/20 22:09 Insulin Lispro 100 Unit/Ml SUB-Q 1 unit ACHS SHAHLA Administration Protocol Oxycodone/Acetaminophen 1 tab 11/15/20 11:45 11/15/20 19:56 Oxycodone /Acetaminophen 5-325mg Tab PO 1 tab Q4H PRN Administration Pain, Moderate (4-6) Pravastatin Sodium 40 mg 11/15/20 22:00 11/17/20 22:56 Pravastatin 40 Mg Tab PO Not Given QHS SHAHLA Sodium Chloride 10 ml 11/14/20 22:00 11/17/20 22:11 Sodium Chloride 0.9% 10 Ml Flush Syringe IV 10 ml BID SHAHLA Administration Sodium Chloride 10 ml 11/14/20 18:33 Sodium Chloride 0.9% 10 Ml Flush Syringe IV PRN PRN LINE FLUSH
[2020-11-18 10:36] LABS: Hemoglobin 9.1 gm/dl (10.1-14.3); Mean Corpuscular HGB Conc 33 % (30-34); Mean Corpuscular Volume 95 fl (79-97); Red Blood Count 2.97 M/mm3 (3.65-5.03)
[2020-11-18 10:38] LABS: Platelet Count 222 K/mm3 (140-440)
[2020-11-18 10:59] LABS: Calcium 8.1 mg/dL (8.4-10.2)
[2020-11-18 11:26] LABS: Band Neutrophils # (Manual) 0.2 K/mm3; Total Cells Counted 100
[2020-11-18 11:28] LABS: Large Platelets Few; Platelet Estimate Consistent w Auto; RBC Morphology Normal
--- NOTE | 2020-11-18 12:42 | Progress Note ---
Assessment and Plan Cultures: 11/14/2020 blood culture: no growth 11/14/2020 urine culture: No growth 11/17/2020 urine culture: In process A/P: 55-year-old female with diabetes, hyperlipidemia, vascular dementia was brought in from the long-term due to confusion. She had COVID-19 in February 2020, now with DKA and: #Sepsis: Secondary to pneumonia v/s UTI. Chest x-ray with patchy bilateral infiltrates. Also rule out COVID-19. Procalcitonin was 30.66. Abdominal CT with nonobstructive renal calculus. #UTI: UA with pyuria. Admitted with DKA. #Diabetic ketoacidosis: required insulin drip while in ICU. #Acute encephalopathy: Likely metabolic, sodium very high on admission. Also, reportedly with underlying vascular dementia. #RACH: Renally dose antibiotics. #Severe gingivitis/periodontitis Recs: -Continue ceftriaxone, flagyl. completed azithromycin -monitor renal function and WBC -Follow-up COVID-19 PCR Krystina Townsend MD, FACP [facility] ([facility] O: [phone] F: [phone] Subjective Date of service: 11/18/20 Principal diagnosis: Ac hypoxemic resp failure; Sepsis; DKA; RACH; Pneumonia; PUI COVID-19 Interval history: No fever. Remains on oxygen. Objective - Exam Narrative Exam: Physical Exam: deferred, minimize transmission risk while pending COVID-19 test result - Constitutional Vitals: Vital Signs Temp Pulse Resp BP Pulse Ox 98.0 F 85 18 115/63 98 11/18/20 04:20 11/18/20 04:20 11/18/20 04:20 11/18/20 04:20 11/18/20 04:20 Temperature -Last 24 Hours Temperature 98.0 F Temperature 99.5 F - Labs CBC & Chem 7: 11/18/20 09:23 11/18/20 09:23 Labs: Abnormal lab results 11/17/20 11/17/20 11/17/20 Range/Units 11:17 16:00 20:20 WBC (4.5-11.0) K/mm3 RBC (3.65-5.03) M/mm3 Hgb (10.1-14.3) gm/dl Hct (30.3-42.9) % Seg Neuts % (Manual) (40.0-70.0) % Lymphocytes % (Manual) (13.4-35.0) % Seg Neutrophils # Man (1.8-7.7) K/mm3 Sodium (137-145) mmol/L Chloride (98-107) mmol/L Carbon Dioxide (22-30) mmol/L BUN (7-17) mg/dL Creatinine (0.6-1.2) mg/dL Glucose (65-100) mg/dL POC Glucose 106 H 198 H (70-105) mg/dL Calcium (8.4-10.2) mg/dL Urine WBC (Auto) 66.0 H (0.0-6.0) /HPF Urine Creatinine (0.1-20.0) mg/dL 11/17/20 11/17/20 11/18/20 Range/Units 20:20 21:23 07:43 WBC (4.5-11.0) K/mm3 RBC (3.65-5.03) M/mm3 Hgb (10.1-14.3) gm/dl Hct (30.3-42.9) % Seg Neuts % (Manual) (40.0-70.0) % Lymphocytes % (Manual) (13.4-35.0) % Seg Neutrophils # Man (1.8-7.7) K/mm3 Sodium (137-145) mmol/L Chloride (98-107) mmol/L Carbon Dioxide (22-30) mmol/L BUN (7-17) mg/dL Creatinine (0.6-1.2) mg/dL Glucose (65-100) mg/dL POC Glucose 193 H 181 H (70-105) mg/dL Calcium (8.4-10.2) mg/dL Urine WBC (Auto) (0.0-6.0) /HPF Urine Creatinine 67.2 H (0.1-20.0) mg/dL 11/18/20 11/18/20 Range/Units 09:23 09:23 WBC 21.0 H (4.5-11.0) K/mm3 RBC 2.97 L (3.65-5.03) M/mm3 Hgb 9.1 L (10.1-14.3) gm/dl Hct 28.0 L (30.3-42.9) % Seg Neuts % (Manual) 89.0 H (40.0-70.0) % Lymphocytes % (Manual) 6.0 L (13.4-35.0) % Seg Neutrophils # Man 18.7 H (1.8-7.7) K/mm3 Sodium 152 H (137-145) mmol/L Chloride 119.1 H (98-107) mmol/L Carbon Dioxide 19 L (22-30) mmol/L BUN 62 H (7-17) mg/dL Creatinine 3.9 H (0.6-1.2) mg/dL Glucose 224 H (65-100) mg/dL POC Glucose (70-105) mg/dL Calcium 8.1 L (8.4-10.2) mg/dL Urine WBC (Auto) (0.0-6.0) /HPF Urine Creatinine (0.1-20.0) mg/dL
[2020-11-18] MEDS: FAMOTIDINE 20 MG TAB PO SCH (13:22)
[2020-11-18] MEDS: HEPARIN 5,000 UNIT/1 ML VIAL SUB-Q SCH ×2 (13:23→21:23)
[2020-11-18] MEDS: CITALOPRAM 20 MG TAB PO SCH (13:24)
--- NOTE | 2020-11-18 13:49 | Progress Note ---
Assessment and Plan Patient is weak. Patient awake. Coughing. Poor dental hygiene. On 2L O2. O2 saturation 100%. Patient is afebrile with leukocytosis. Chest X-ray performed 11/14/20. Chest x-ray shows interval development of patchy bibasilar airspace opacities worrisome for pneumonia in the appropriate clinical setting. Recommend follow-up chest radiograph in 6-12 weeks following treatment to ensure resolution. Patient is COVID-19 negative. Patient presently on ceftriaxone, azithromycin, metronidazole, s/c heparin, and famotidine. - Patient Problems (1) Acute hypoxemic respiratory failure Current Visit: No Status: Acute Plan to address problem: Patient presently on 2L O2. O2 saturation 100%. Continue s/c heparin. Continue famotidine. (2) Pneumonia Current Visit: Yes Status: Acute Plan to address problem: Patient is on ceftriaxone, azithromycin, and metronidazole. (3) Sepsis Current Visit: Yes Status: Acute Plan to address problem: Patient is on ceftriaxone, azithromycin, and metronidazole. (4) Acute encephalopathy Current Visit: Yes Status: Acute Plan to address problem: Management as per primary care. (5) DKA (diabetic ketoacidoses) Current Visit: Yes Status: Acute Qualifiers: Diabetes mellitus type: type 1 Plan to address problem: Management as per primary care. (6) Suspected 2019-nCoV infection Current Visit: Yes Status: Acute Plan to address problem: Negative COVID-19 test. Subjective Date of service: 11/18/20 Principal diagnosis: Ac hypoxemic resp failure; Sepsis; DKA; RACH; Pneumonia; PUI COVID-19 Interval history: Patient is weak. Patient awake. Coughing. Poor dental hygiene. On 2L O2. O2 saturation 100%. Patient is afebrile with leukocytosis. Chest X-ray performed 11/14/20. Chest x-ray shows interval development of patchy bibasilar airspace opacities worrisome for pneumonia in the appropriate clinical setting. Recommend follow-up chest radiograph in 6-12 weeks following treatment to ensure resolution. Patient is COVID-19 negative. Patient presently on ceftriaxone, azithromycin, metronidazole, s/c heparin, and famotidine. Objective Vital Signs - 12hr 11/18/20 11/18/20 04:20 10:00 Temperature 98.0 F Pulse Rate 85 Respiratory 18 Rate Blood Pressure 115/63 O2 Sat by Pulse 98 100 Oximetry Constitutional: no acute distress, alert, appears uncomfortable Eyes: non-icteric ENT: oropharynx dry Neck: supple, no lymphadenopathy, no JVD Effort: mildly labored Ascultation: Bilateral: diminished breath sounds, rhonchi Percussion: Bilateral: not dull Cardiovascular: regular rate and rhythm Gastrointestinal: normoactive bowel sounds, soft, non-tender, non-distended Integumentary: other (see [facility] notes) Extremities: no cyanosis, no edema, pink and warm, pulses normal Neurologic: pupils equal and round, CN II-XII normal, motor strength normal and, other (+ cognitive dysfunction) Psychiatric: anxious CBC and BMP: 11/18/20 09:23 11/18/20 09:23 ABG, PT/INR, D-dimer: PT/INR, D-dimer PT 15.3 Sec. (12.2-14.9) H 11/14/20 16:23 INR 1.21 (0.87-1.13) H 11/14/20 16:23 D-Dimer 2876.26 ng/mlDDU (0-234) H 11/14/20 18:30 Abnormal lab findings: Abnormal Labs 11/14/20 11/14/20 11/14/20 16:23 16:23 16:23 WBC 14.5 H RBC 3.48 L Hgb Hct MCV 101 H RDW Seg Neuts % (Manual) 92.0 H Lymphocytes % (Manual) 5.0 L Seg Neutrophils # Man 13.3 H Lymphocytes # (Manual) 0.7 L PT 15.3 H INR 1.21 H APTT 23.1 L D-Dimer VBG pH Sodium Potassium Chloride Carbon Dioxide BUN Creatinine Glucose POC Glucose Hemoglobin A1c Lactic Acid 7.50 H* Calcium Phosphorus Ferritin Alkaline Phosphatase Lactate Dehydrogenase C-Reactive Protein Total Protein Albumin Urine WBC (Auto) Urine Creatinine 11/14/20 11/14/20 11/14/20 16:23 16:23 16:27 WBC RBC Hgb Hct MCV RDW Seg Neuts % (Manual) Lymphocytes % (Manual) Seg Neutrophils # Man Lymphocytes # (Manual) PT INR APTT D-Dimer VBG pH 7.216 L Sodium 166 H* Potassium Chloride 120.8 H Carbon Dioxide 6 L* BUN 36 H Creatinine 1.9 H Glucose 765 H* POC Glucose Hemoglobin A1c Lactic Acid Calcium 11.4 H Phosphorus Ferritin Alkaline Phosphatase 259 H Lactate Dehydrogenase C-Reactive Protein Total Protein Albumin 3.3 L Urine WBC (Auto) 38.0 H Urine Creatinine 11/14/20 11/14/20 11/14/20 18:22 18:22 18:22 WBC RBC Hgb Hct MCV RDW Seg Neuts % (Manual) Lymphocytes % (Manual) Seg Neutrophils # Man Lymphocytes # (Manual) PT INR APTT D-Dimer VBG pH Sodium Potassium Chloride Carbon Dioxide 11 L BUN 32 H Creatinine 1.5 H Glucose 695 H* POC Glucose Hemoglobin A1c Lactic Acid 2.60 H* Calcium Phosphorus 1.30 L Ferritin Alkaline Phosphatase Lactate Dehydrogenase C-Reactive Protein Total Protein Albumin Urine WBC (Auto) Urine Creatinine 11/14/20 11/14/20 11/14/20 18:30 18:30 18:30 WBC RBC Hgb Hct MCV RDW Seg Neuts % (Manual) Lymphocytes % (Manual) Seg Neutrophils # Man Lymphocytes # (Manual) PT INR APTT D-Dimer 2876.26 H VBG pH Sodium Potassium Chloride Carbon Dioxide BUN Creatinine Glucose POC Glucose Hemoglobin A1c Lactic Acid Calcium Phosphorus Ferritin 623.7 H Alkaline Phosphatase Lactate Dehydrogenase 247 H C-Reactive Protein 52.00 H Total Protein Albumin Urine WBC (Auto) Urine Creatinine 11/14/20 11/14/20 11/14/20 20:23 23:08 23:08 WBC RBC Hgb Hct MCV RDW Seg Neuts % (Manual) Lymphocytes % (Manual) Seg Neutrophils # Man Lymphocytes # (Manual) PT INR APTT D-Dimer VBG pH Sodium Potassium 2.6 L* D Chloride 109.4 H Carbon Dioxide 8 L* 10 L BUN 33 H 32 H Creatinine 1.6 H < 0.2 L D Glucose 753 H* 509 H* POC Glucose Hemoglobin A1c Lactic Acid 5.70 H* Calcium Phosphorus Ferritin Alkaline Phosphatase Lactate Dehydrogenase C-Reactive Protein Total Protein Albumin Urine WBC (Auto) Urine Creatinine 11/14/20 11/15/20 11/15/20 23:14 00:01 00:54 WBC RBC Hgb Hct MCV RDW Seg Neuts % (Manual) Lymphocytes % (Manual) Seg Neutrophils # Man Lymphocytes # (Manual) PT INR APTT D-Dimer VBG pH Sodium Potassium Chloride Carbon Dioxide BUN Creatinine Glucose POC Glucose 427 H 375 H 280 H Hemoglobin A1c Lactic Acid Calcium Phosphorus Ferritin Alkaline Phosphatase Lactate Dehydrogenase C-Reactive Protein Total Protein Albumin Urine WBC (Auto) Urine Creatinine 11/15/20 11/15/20 11/15/20 01:58 02:56 04:53 WBC RBC Hgb Hct MCV RDW Seg Neuts % (Manual) Lymphocytes % (Manual) Seg Neutrophils # Man Lymphocytes # (Manual) PT INR APTT D-Dimer VBG pH Sodium Potassium Chloride Carbon Dioxide BUN Creatinine Glucose POC Glucose 191 H 124 H 140 H Hemoglobin A1c Lactic Acid Calcium Phosphorus Ferritin Alkaline Phosphatase Lactate Dehydrogenase C-Reactive Protein Total Protein Albumin Urine WBC (Auto) Urine Creatinine 11/15/20 11/15/20 11/15/20 06:18 06:18 06:18 WBC RBC 2.74 L Hgb 8.9 L Hct 26.1 L D MCV RDW 12.8 L Seg Neuts % (Manual) 81.0 H Lymphocytes % (Manual) Seg Neutrophils # Man 8.7 H Lymphocytes # (Manual) PT INR APTT D-Dimer VBG pH Sodium 149 H 149 H Potassium Chloride 116.2 H 117.4 H Carbon Dioxide 20 L D 20 L BUN 33 H 32 H Creatinine 1.6 H D 1.6 H Glucose 236 H 231 H POC Glucose Hemoglobin A1c Lactic Acid Calcium Phosphorus Ferritin Alkaline Phosphatase 184 H Lactate Dehydrogenase C-Reactive Protein Total Protein 5.8 L D Albumin 2.5 L Urine WBC (Auto) Urine Creatinine 11/15/20 11/15/20 11/15/20 06:24 10:15 10:18 WBC RBC Hgb Hct MCV RDW Seg Neuts % (Manual) Lymphocytes % (Manual) Seg Neutrophils # Man Lymphocytes # (Manual) PT INR APTT D-Dimer VBG pH Sodium 148 H Potassium Chloride 116.4 H Carbon Dioxide 19 L BUN 33 H Creatinine 1.8 H Glucose 133 H POC Glucose 223 H Hemoglobin A1c 10.8 H Lactic Acid Calcium Phosphorus Ferritin Alkaline Phosphatase Lactate Dehydrogenase C-Reactive Protein Total Protein Albumin Urine WBC (Auto) Urine Creatinine 11/15/20 11/15/20 11/15/20 12:20 17:44 18:31 WBC RBC Hgb Hct MCV RDW Seg Neuts % (Manual) Lymphocytes % (Manual) Seg Neutrophils # Man Lymphocytes # (Manual) PT INR APTT D-Dimer VBG pH Sodium 149 H Potassium Chloride 114.2 H Carbon Dioxide 15 L BUN 37 H Creatinine 2.0 H Glucose 400 H POC Glucose 266 H 350 H Hemoglobin A1c Lactic Acid Calcium Phosphorus Ferritin Alkaline Phosphatase Lactate Dehydrogenase C-Reactive Protein Total Protein Albumin Urine WBC (Auto) Urine Creatinine 11/15/20 11/16/20 11/16/20 21:40 07:00 07:56 WBC RBC Hgb Hct MCV RDW Seg Neuts % (Manual) Lymphocytes % (Manual) Seg Neutrophils # Man Lymphocytes # (Manual) PT INR APTT D-Dimer VBG pH Sodium 152 H Potassium Chloride 118.9 H Carbon Dioxide 17 L BUN 43 H Creatinine 2.7 H Glucose 204 H POC Glucose 195 H 222 H Hemoglobin A1c Lactic Acid Calcium 8.0 L Phosphorus 4.70 H D Ferritin Alkaline Phosphatase Lactate Dehydrogenase C-Reactive Protein Total Protein Albumin Urine WBC (Auto) Urine Creatinine 11/16/20 11/16/20 11/16/20 11:40 17:06 21:07 WBC RBC Hgb Hct MCV RDW Seg Neuts % (Manual) Lymphocytes % (Manual) Seg Neutrophils # Man Lymphocytes # (Manual) PT INR APTT D-Dimer VBG pH Sodium Potassium Chloride Carbon Dioxide BUN Creatinine Glucose POC Glucose 201 H 315 H 230 H Hemoglobin A1c Lactic Acid Calcium Phosphorus Ferritin Alkaline Phosphatase Lactate Dehydrogenase C-Reactive Protein Total Protein Albumin Urine WBC (Auto) Urine Creatinine 11/17/20 11/17/20 11/17/20 07:57 10:30 11:17 WBC RBC Hgb Hct MCV RDW Seg Neuts % (Manual) Lymphocytes % (Manual) Seg Neutrophils # Man Lymphocytes # (Manual) PT INR APTT D-Dimer VBG pH Sodium 153 H Potassium 3.4 L Chloride 122.1 H Carbon Dioxide 19 L BUN 54 H Creatinine 3.6 H Glucose 108 H POC Glucose 253 H 106 H Hemoglobin A1c Lactic Acid Calcium Phosphorus Ferritin Alkaline Phosphatase Lactate Dehydrogenase C-Reactive Protein Total Protein Albumin Urine WBC (Auto) Urine Creatinine 11/17/20 11/17/20 11/17/20 16:00 20:20 20:20 WBC RBC Hgb Hct MCV RDW Seg Neuts % (Manual) Lymphocytes % (Manual) Seg Neutrophils # Man Lymphocytes # (Manual) PT INR APTT D-Dimer VBG pH Sodium Potassium Chloride Carbon Dioxide BUN Creatinine Glucose POC Glucose 198 H Hemoglobin A1c Lactic Acid Calcium Phosphorus Ferritin Alkaline Phosphatase Lactate Dehydrogenase C-Reactive Protein Total Protein Albumin Urine WBC (Auto) 66.0 H Urine Creatinine 67.2 H 11/17/20 11/18/20 11/18/20 21:23 07:43 09:23 WBC 21.0 H RBC 2.97 L Hgb 9.1 L Hct 28.0 L MCV RDW Seg Neuts % (Manual) 89.0 H Lymphocytes % (Manual) 6.0 L Seg Neutrophils # Man 18.7 H Lymphocytes # (Manual) PT INR APTT D-Dimer VBG pH Sodium Potassium Chloride Carbon Dioxide BUN Creatinine Glucose POC Glucose 193 H 181 H Hemoglobin A1c Lactic Acid Calcium Phosphorus Ferritin Alkaline Phosphatase Lactate Dehydrogenase C-Reactive Protein Total Protein Albumin Urine WBC (Auto) Urine Creatinine 11/18/20 11/18/20 09:23 12:54 WBC RBC Hgb Hct MCV RDW Seg Neuts % (Manual) Lymphocytes % (Manual) Seg Neutrophils # Man Lymphocytes # (Manual) PT INR APTT D-Dimer VBG pH Sodium 152 H Potassium Chloride 119.1 H Carbon Dioxide 19 L BUN 62 H Creatinine 3.9 H Glucose 224 H POC Glucose 297 H Hemoglobin A1c Lactic Acid Calcium 8.1 L Phosphorus Ferritin Alkaline Phosphatase Lactate Dehydrogenase C-Reactive Protein Total Protein Albumin Urine WBC (Auto) Urine Creatinine Chest x-ray: report reviewed, image reviewed Additional Studies: 11/14/20 FINDINGS: SUPPORT DEVICES: None. HEART / MEDIASTINUM: No significant abnormality. LUNGS / PLEURA: There has been interval development of patchy airspace opacity in the left lung base as well as the medial right lower lobe. No pleural effusion. No pneumothorax. ADDITIONAL FINDINGS: No significant additional findings. IMPRESSION: 1. Interval development of patchy bibasilar airspace opacities worrisome for pneumonia in the appropriate clinical setting. Recommend follow-up chest radiograph in 6-12 weeks following treatment to ensure resolution. Allied health notes reviewed: nursing
[2020-11-18] MEDS: DEXTROSE 5% IN WATER 1,000 ML IV SCH (16:30)
[2020-11-18] MEDS: cefTRIAXone/NS 2 GM/100 ML 2 GM/100 ML BAG IV SCH (20:21)
[2020-11-18] MEDS: AZITHROMYCIN/NS 500 MG/250 ML 500 MG/250 ML BAG IV SCH (21:22)
[2020-11-18] MEDS: PRAVASTATIN 40 MG TAB PO SCH (21:22)
[2020-11-18] MEDS: INSULIN GLARGINE 100 UNITS/ML SUB-Q SCH (21:30)
[2020-11-19] MEDS: metroNIDAZOLE/NS 500 MG/100 ML 500 MG/100 ML BAG IV SCH ×3 (05:26→22:19)
[2020-11-19] MEDS: INSULIN LISPRO 100 UNIT/ML SUB-Q SCH ×4 (07:27→22:18)
[2020-11-19 07:40] LABS: Hematocrit 26.5 % (30.3-42.9); Hemoglobin 8.7 gm/dl (10.1-14.3); Mean Corpuscular HGB Conc 33 % (30-34); Mean Corpuscular Volume 93 fl (79-97); Platelet Count 173 K/mm3 (140-440); Red Blood Count 2.85 M/mm3 (3.65-5.03); Red Cell Distribution Width 13.5 % (13.2-15.2)
--- NOTE | 2020-11-19 08:11 | Progress Note ---
Assessment and Plan 1. Acute kidney injury: Vasomotor RACH superimposed on CKD in the setting of sepsis. ATN likely. Renal US and CT abdomen negative for hydro. Monitor renal function. Creatinine level increasing. Renal prognosis is guarded. Avoid nephrotoxic agents. Meds dosage based on GFR. Monitor for [facility] needs. 2. FEN: Hypernatremia, hypotonic IV fluids. Ur and Sr Osm ordered. Hyperchloremic metabolic acidosis, continue IV D5W, monitor. Monitor lytes and volume status. 3. Sepsis: Likely 2/2 PNA. Pending Covid test. Continue abx. Follow cultures. 4. Bilateral PNA: Abx. Covid test negative. 5. DKA: Improved. 6. Anemia: Monitor. 7. HTN: Monitor BP. 8. Metabolic encephalopathy, POA. - Subjective: Patient was seen and examined at the bedside. - General Appearance: General appearance: appears stated age, not in distress, appears chronically ill HEENT: ATNC, CAITY Neck: Trachea midline Respiratory: coarse breath sounds Cardiology: regular, S1S2, no murmur Gastrointestinal: normoactive bowel sounds, not tender, not distended Integumentary: no rash, warm and dry Neurologic: lethargic, opens eyes, not following any command, non-verbal Ext: no edema Subjective Date of service: 11/19/20 Principal diagnosis: Ac hypoxemic resp failure; Sepsis; DKA; RACH; Pneumonia; PUI COVID-19 Objective - Vital Signs Vital signs: Vital Signs - 12hr 11/18/20 11/18/20 11/18/20 21:32 22:00 23:00 Temperature 99.8 F H Pulse Rate 90 Respiratory 18 17 Rate Blood Pressure 119/44 O2 Sat by Pulse 95 95 100 Oximetry 11/19/20 04:17 Temperature 98.2 F Pulse Rate 67 Respiratory 20 Rate Blood Pressure 106/51 O2 Sat by Pulse 98 Oximetry - Lab 11/19/20 07:08 11/19/20 07:08 Most recent lab results Calcium 8.1 mg/dL (8.4-10.2) L 11/18/20 09:23 Phosphorus 4.70 mg/dL (2.5-4.5) H D 11/16/20 07:00 Magnesium 2.20 mg/dL (1.7-2.3) 11/14/20 18:22 Urine Creatinine 67.2 mg/dL (0.1-20.0) H 11/17/20 20:20 Urine Sodium 74 mmol/L 11/17/20 20:20 Medications & Allergies - Medications Allergies/Adverse Reactions: Allergies No Known Allergies Allergy (Verified 02/26/20 10:24) Home Medications: Home Medications Medication Instructions Recorded Confirmed Last Taken Type Citalopram [Celexa] 20 mg PO QDAY 01/25/20 03/06/20 Unknown History Pravastatin [Pravachol] 40 mg PO QHS 01/25/20 03/06/20 Unknown History Acetaminophen [Mapap] 650 mg PO BID PRN 02/26/20 03/06/20 Unknown History Ascorbic Acid [Vitamin C with Chetna 500 mg PO DAILY 02/26/20 03/06/20 Unknown History Hips] Glimepiride [Amaryl] 4 mg PO QAM 02/26/20 03/06/20 Unknown History Insulin Lispro [Humalog] 5 units SQ AC 02/26/20 03/06/20 Unknown History Multivit-Min/Ferrous Fumarate 15 mg PO DAILY 02/26/20 03/06/20 Unknown History [Multivitamin with Minerals Tab] Apixaban [Eliquis] 2.5 mg PO BID #30 tablet 03/01/20 03/06/20 Unknown Rx Active Medications: Generic Name Dose Route Start Last Admin Trade Name Boyq PRN Reason Stop Dose Admin Acetaminophen 650 mg 11/14/20 18:37 11/16/20 17:23 Acetaminophen 325 Mg Tab PO 650 mg Q6H PRN Administration Pain, Mild (1-3) Citalopram Hydrobromide 20 mg 11/16/20 10:00 11/18/20 13:24 Citalopram 20 Mg Tab PO 20 mg QDAY SHAHLA Administration Dextrose 50 ml 11/15/20 10:20 Dextrose 50% In Water (25gm) 50 Ml Syringe IV Q30MIN PRN Hypoglycemia Protocol Famotidine 20 mg 11/16/20 10:00 11/18/20 13:22 Famotidine 20 Mg Tab PO 20 mg QDAY SHAHLA Administration Heparin Sodium (Porcine) 5,000 unit 11/15/20 22:00 11/18/20 21:23 Heparin 5,000 Unit/1 Ml Vial SUB-Q 5,000 unit Q12HR SHAHLA Administration Ceftriaxone Sodium 2 gm in 100 mls @ 200 mls/hr 11/14/20 19:00 11/18/20 20:21 Rocephin/Ns 2 Gm/100 Ml IV 200 mls/hr Q24H SHAHLA Administration Protocol Azithromycin 500 mg in 250 mls @ 250 mls/hr 11/14/20 19:00 11/18/20 21:22 Zithromax/Ns IV 250 mls/hr Q24H SHAHLA Administration Protocol Dextrose 1,000 mls @ 50 mls/hr 11/16/20 11:00 11/18/20 16:30 D5w IV 50 mls/hr DIRECT SHAHLA Administration Metronidazole 500 mg in 100 mls @ 100 mls/hr 11/17/20 15:00 11/19/20 05:26 Flagyl 500 Mg/100 Ml IV 100 mls/hr Q8HR SHAHLA Administration Protocol Insulin Glargine 14 units 11/16/20 22:00 11/18/20 21:30 Insulin Glargine 100 Units/Ml SUB-Q 14 units QHS SHAHLA Administration Insulin Human Lispro 0 unit 11/15/20 11:30 11/18/20 22:30 Insulin Lispro 100 Unit/Ml SUB-Q 4 unit ACHS SHAHLA Administration Protocol Oxycodone/Acetaminophen 1 tab 11/15/20 11:45 11/15/20 19:56 Oxycodone /Acetaminophen 5-325mg Tab PO 1 tab Q4H PRN Administration Pain, Moderate (4-6) Pravastatin Sodium 40 mg 11/15/20 22:00 11/18/20 21:22 Pravastatin 40 Mg Tab PO 40 mg QHS SHAHLA Administration Sodium Chloride 10 ml 11/14/20 22:00 11/18/20 21:23 Sodium Chloride 0.9% 10 Ml Flush Syringe IV 10 ml BID SHAHLA Administration Sodium Chloride 10 ml 11/14/20 18:33 Sodium Chloride 0.9% 10 Ml Flush Syringe IV PRN PRN LINE FLUSH
[2020-11-19 08:13] LABS: Calcium 8.3 mg/dL (8.4-10.2)
--- NOTE | 2020-11-19 08:33 | Progress Note ---
Assessment and Plan Assessment and plan: This is a 55-year-old female who is a resident of [facility] with vascular dementia, depression, developmental delay, debility, diabetes mellitus, hyperlipidemia, recent COVID 19 infection, chronic kidney disease and recurrent DKA who presents the emergency department on 11/14 with reported confusion and ill-appearing over the past day and hypoglycemia. Evaluation in the emergency department revealed sepsis with tachycardia, febrile to 102.8, tachypnea, lactic acidosis and RACH suspected secondary to urinary tract infection/?covid 19 pna, diabetic ketoacidosis, metabolic acidosis, toxic metabolic encephalopathy, acute kidney injury and hypernatremia. Patient was initiated sepsis, COVID-19 and DKA protocol admitted hospital service with consults to [facility] and nutrition. Sepsis Covid 19 DKA-resolved RACH Toxic metabolic encephalopathy Bilateral pneumonia Urinary tract infection Gingivitis and periodontitis Leukocytosis Hypernaturemia, improving Hyperchloremia, improving Lactic acidosis, resolved Hypophosphatemia Hypokalemia, resolved Elevated ddimer Plan; Continue current antibiotics Rocephin, Zithromax and Flagyl As recommended by ID Follow cultures Closely monitor blood sugars Adjust insulin as needed Follow nephrology evaluation recommendations DVT prophylaxis Heparin renal dose 11/15: Patient has been transitioned to sliding scale insulin and started on a pured diet. Per SNF patient has completed antibiotic therapy for her mouth. Her leukocytosis, hypernatremia, hyperchloremia, metabolic acidosis have improved. She has worsening kidney function. ID consulted today. 11/16: Continue IV antibiotics of ceftriaxone and azithromycin per ID recomm endations. Patient has been transitioned from IV insulin drip to long-acting insulin of Lantus 14 units at bedtime. Patient does have acute kidney injury likely secondary to sepsis/ATN +/- vasomotor nephropathy. Creatinine is worse today at 2.7. Consult nephrology for further evaluation. Check CT scan of the abdomen pelvis. 11/17: Continue antibiotics per ID recommendations. Patient appears to have pneumonia and UTI. Blood and urine cultures remain negative x48 hours. Follow- up COVID-[address] scan shows a nonobstructing calculus in the right kidney. Follow-up BMP to assess renal function 11/18: Continue ceftriaxone, itraconazole and azithromycin for sepsis secondary to pneumonia/UTI. Procalcitonin elevated at 30.66. Chest x-ray revealed patchy bilateral infiltrates. Etiology aspiration pneumonia versus COVID-19. COVID-19 PCR pending. Blood and urine cultures remain negative. Nephrology following for acute kidney injury. Creatinine worsened. Follow-up BMP this morning. CT scan negative for obstruction. 11/19/2020; continue current antibiotics per ID COVID-19 test negative, patient is requiring 2 L of nasal cannula oxygen Closely monitor and adjust management as needed Consults and recommendations noted and appreciated History Interval history: I have seen and examined the patient at the bedside Patient's chart and medications reviewed Patient is severely cachectic emaciated and underweight In mild distress Vital signs noted Hospitalist Physical - Constitutional Vitals: Temp Pulse Resp BP Pulse Ox 98.2 F 67 20 106/51 98 11/19/20 04:17 11/19/20 04:17 11/19/20 04:17 11/19/20 04:17 11/19/20 04:17 General appearance: Present: no acute distress, cachectic, disheveled - EENT Eyes: Present: PERRL, EOM intact - Neck Neck: Present: supple, normal ROM - Respiratory Respiratory effort: normal Respiratory: bilateral: diminished, negative: rales, rhonchi, wheezing - Cardiovascular Rhythm: regular Heart Sounds: Present: S1 & S2 - Extremities Extremities: no ischemia, No edema - Abdominal General gastrointestinal: soft, non-tender, non-distended, normal bowel sounds - Integumentary Integumentary: Present: clear, warm - Psychiatric Psychiatric: appropriate mood/affect, cooperative - Neurologic Neurologic: CNII-XII intact, moves all extremities HEART Score - HEART Score Troponin: Troponin T < 0.010 ng/mL (0.00-0.029) 11/14/20 16:23 Results - Labs CBC & Chem 7: 11/19/20 07:08 11/19/20 07:08 Labs: Laboratory Last Values WBC 15.4 K/mm3 (4.5-11.0) H 11/19/20 07:08 RBC 2.85 M/mm3 (3.65-5.03) L 11/19/20 07:08 Hgb 8.7 gm/dl (10.1-14.3) L 11/19/20 07:08 Hct 26.5 % (30.3-42.9) L 11/19/20 07:08 MCV 93 fl (79-97) 11/19/20 07:08 MCH 31 pg (28-32) 11/19/20 07:08 MCHC 33 % (30-34) 11/19/20 07:08 RDW 13.5 % (13.2-15.2) 11/19/20 07:08 Plt Count 173 K/mm3 (140-440) 11/19/20 07:08 Add Manual Diff Complete 11/18/20 09:23 Total Counted 100 11/18/20 09:23 Seg Neutrophils % Tenter 11/14/20 16:23 Seg Neuts % (Manual) 89.0 % (40.0-70.0) H 11/18/20 09:23 Band Neutrophils % 1.0 % 11/18/20 09:23 Lymphocytes % (Manual) 6.0 % (13.4-35.0) L 11/18/20 09:23 Monocytes % (Manual) 1.0 % (0.0-7.3) 11/18/20 09:23 Eosinophils % (Manual) 2.0 % (0.0-4.3) 11/18/20 09:23 Metamyelocytes % 1.0 % 11/18/20 09:23 Nucleated RBC % Not Reportable 11/18/20 09:23 Seg Neutrophils # Man 18.7 K/mm3 (1.8-7.7) H 11/18/20 09:23 Band Neutrophils # 0.2 K/mm3 11/18/20 09:23 Lymphocytes # (Manual) 1.3 K/mm3 (1.2-5.4) 11/18/20 09:23 Abs React Lymphs (Man) 0.0 K/mm3 11/18/20 09:23 Monocytes # (Manual) 0.2 K/mm3 (0.0-0.8) 11/18/20 09:23 Eosinophils # (Manual) 0.4 K/mm3 (0.0-0.4) 11/18/20 09:23 Basophils # (Manual) 0.0 K/mm3 (0.0-0.1) 11/18/20 09:23 Metamyelocytes # 0.2 K/mm3 11/18/20 09:23 Myelocytes # 0.0 K/mm3 11/18/20 09:23 Promyelocytes # 0.0 K/mm3 11/18/20 09:23 Blast Cells # 0.0 K/mm3 11/18/20 09:23 WBC Morphology Not Reportable 11/18/20 09:23 Hypersegmented Neuts Not Reportable 11/18/20 09:23 Hyposegmented Neuts Not Reportable 11/18/20 09:23 Hypogranular Neuts Not Reportable 11/18/20 09:23 Smudge Cells Not Reportable 11/18/20 09:23 Toxic Granulation Not Reportable 11/18/20 09:23 Toxic Vacuolation Not Reportable 11/18/20 09:23 Dohle Bodies Not Reportable 11/18/20 09:23 Pelger-Huet Anomaly Not Reportable 11/18/20 09:23 Jamia Rods Not Reportable 11/18/20 09:23 Platelet Estimate Consistent w auto 11/18/20 09:23 Clumped Platelets Not Reportable 11/18/20 09:23 Plt Clumps, EDTA Not Reportable 11/18/20 09:23 Large Platelets Few 11/18/20 09:23 Giant Platelets Not Reportable 11/18/20 09:23 Platelet Satelliting Not Reportable 11/18/20 09:23 Plt Morphology Comment Not Reportable 11/18/20 09:23 RBC Morphology Normal 11/18/20 09:23 Dimorphic RBCs Not Reportable 11/18/20 09:23 Polychromasia Not Reportable 11/18/20 09:23 Hypochromasia Not Reportable 11/18/20 09:23 Poikilocytosis Not Reportable 11/18/20 09:23 Anisocytosis Not Reportable 11/18/20 09:23 Microcytosis Not Reportable 11/18/20 09:23 Macrocytosis Not Reportable 11/18/20 09:23 Spherocytes Not Reportable 11/18/20 09:23 Pappenheimer Bodies Not Reportable 11/18/20 09:23 Sickle Cells Not Reportable 11/18/20 09:23 Target Cells Not Reportable 11/18/20 09:23 Tear Drop Cells Not Reportable 11/18/20 09:23 Ovalocytes Not Reportable 11/18/20 09:23 Helmet Cells Not Reportable 11/18/20 09:23 Galvan-Darfur Bodies Not Reportable 11/18/20 09:23 Savannah Rings Not Reportable 11/18/20 09:23 Luis Cells Not Reportable 11/18/20 09:23 Bite Cells Not Reportable 11/18/20 09:23 Crenated Cell Not Reportable 11/18/20 09:23 Elliptocytes Not Reportable 11/18/20 09:23 Acanthocytes (Spur) Not Reportable 11/18/20 09:23 Rouleaux Not Reportable 11/18/20 09:23 Hemoglobin C Crystals Not Reportable 11/18/20 09:23 Schistocytes Not Reportable 11/18/20 09:23 Malaria parasites Not Reportable 11/18/20 09:23 Felice Bodies Not Reportable 11/18/20 09:23 Hem Pathologist Commnt No 11/18/20 09:23 PT 15.3 Sec. (12.2-14.9) H 11/14/20 16:23 INR 1.21 (0.87-1.13) H 11/14/20 16:23 APTT 23.1 Sec. (24.2-36.6) L 11/14/20 16:23 D-Dimer 2876.26 ng/mlDDU (0-234) H 11/14/20 18:30 VBG pH 7.216 (7.320-7.420) L 11/14/20 16:23 Sodium 150 mmol/L (137-145) H 11/19/20 07:08 Potassium 3.9 mmol/L (3.6-5.0) D 11/19/20 07:08 Chloride 119.5 mmol/L (98-107) H 11/19/20 07:08 Carbon Dioxide 17 mmol/L (22-30) L 11/19/20 07:08 Anion Gap 17 mmol/L 11/19/20 07:08 BUN 69 mg/dL (7-17) H 11/19/20 07:08 Creatinine 4.0 mg/dL (0.6-1.2) H 11/19/20 07:08 Estimated GFR 12 ml/min 11/19/20 07:08 BUN/Creatinine Ratio 17 % 11/19/20 07:08 Glucose 274 mg/dL (65-100) H 11/19/20 07:08 POC Glucose 305 mg/dL (70-105) H 11/18/20 21:28 Hemoglobin A1c 10.8 % (4-6) H 11/15/20 10:15 Ketones Quantitative Moderate (Negative) 11/14/20 16:23 Lactic Acid 1.60 mmol/L (0.7-2.0) 11/15/20 06:18 Calcium 8.3 mg/dL (8.4-10.2) L 11/19/20 07:08 Phosphorus 4.70 mg/dL (2.5-4.5) H D 11/16/20 07:00 Magnesium 2.20 mg/dL (1.7-2.3) 11/14/20 18:22 Ferritin 623.7 ng/mL (10.0-200.0) H 11/14/20 18:30 Total Bilirubin < 0.20 mg/dL (0.1-1.2) 11/15/20 06:18 Direct Bilirubin < 0.2 mg/dL (0-0.2) 11/14/20 16:23 Indirect Bilirubin 0.0 mg/dL 11/14/20 16:23 AST 27 units/L (5-40) 11/15/20 06:18 ALT 20 units/L (7-56) 11/15/20 06:18 Alkaline Phosphatase 184 units/L (35-129) H 11/15/20 06:18 Lactate Dehydrogenase 247 units/L (91-180) H 11/14/20 18:30 Troponin T < 0.010 ng/mL (0.00-0.029) 11/14/20 16:23 C-Reactive Protein 52.00 mg/dL (0.00-1.30) H 11/14/20 18:30 Total Protein 5.8 g/dL (6.3-8.2) L D 11/15/20 06:18 Albumin 2.5 g/dL (3.9-5) L 11/15/20 06:18 Albumin/Globulin Ratio 0.8 % 11/15/20 06:18 Procalcitonin 30.66 ng/mL (<0.15) 11/14/20 18:30 Urine Color Yellow (Yellow) 11/17/20 20:20 Urine Turbidity Cloudy (Clear) 11/17/20 20:20 Urine pH 5.0 (5.0-7.0) 11/17/20 20:20 Ur Specific [place] 1.015 (1.003-1.030) 11/17/20 20:20 Urine Protein 100 mg/dl mg/dL (Negative) 11/17/20 20:20 Urine Glucose (UA) 150 mg/dL (Negative) 11/17/20 20:20 Urine Ketones Neg mg/dL (Negative) 11/17/20 20:20 Urine Blood Mod (Negative) 11/17/20 20:20 Urine Nitrite Neg (Negative) 11/17/20 20:20 Urine Bilirubin Neg (Negative) 11/17/20 20:20 Urine Urobilinogen < 2.0 mg/dL (<2.0) 11/17/20 20:20 Ur Leukocyte Esterase Mod (Negative) 11/17/20 20:20 Urine WBC (Auto) 66.0 /HPF (0.0-6.0) H 11/17/20 20:20 Urine RBC (Auto) 59.0 /HPF (0.0-6.0) 11/17/20 20:20 U Epithel Cells (Auto) 1.0 /HPF (0-13.0) 11/17/20 20:20 Urine Bacteria (Auto) 1+ /HPF (Negative) 11/17/20 20:20 Urine Yeast (Budding) 3+ /HPF 11/17/20 20:20 Urine Creatinine 67.2 mg/dL (0.1-20.0) H 11/17/20 20:20 Urine Sodium 74 mmol/L 11/17/20 20:20 Coronavirus (PCR) Negative (Negative) 11/17/20 11:02 Microbiology: Microbiology 11/14/20 16:23 Peripheral/Venous Blood Culture - Preliminary NO GROWTH AFTER 4 DAYS 11/14/20 16:18 Peripheral/Venous Blood Culture - Preliminary NO GROWTH AFTER 4 DAYS 11/17/20 20:20 Urine,Clean Catch Urine Culture - Preliminary Verma/IV: Voiding Method Incontinent Active Medications - Current Medications Current Medications: Generic Name Dose Route Start Last Admin Trade Name Freq PRN Reason Stop Dose Admin Acetaminophen 650 mg 11/14/20 18:37 11/16/20 17:23 Acetaminophen 325 Mg Tab PO 650 mg Q6H PRN Administration Pain, Mild (1-3) Citalopram Hydrobromide 20 mg 11/16/20 10:00 11/18/20 13:24 Citalopram 20 Mg Tab PO 20 mg QDAY SHAHLA Administration Dextrose 50 ml 11/15/20 10:20 Dextrose 50% In Water (25gm) 50 Ml Syringe IV Q30MIN PRN Hypoglycemia Protocol Famotidine 20 mg 11/16/20 10:00 11/18/20 13:22 Famotidine 20 Mg Tab PO 20 mg QDAY SHAHLA Administration Heparin Sodium (Porcine) 5,000 unit 11/15/20 22:00 11/18/20 21:23 Heparin 5,000 Unit/1 Ml Vial SUB-Q 5,000 unit Q12HR SHAHLA Administration Ceftriaxone Sodium 2 gm in 100 mls @ 200 mls/hr 11/14/20 19:00 11/18/20 20:21 Rocephin/Ns 2 Gm/100 Ml IV 200 mls/hr Q24H SHAHLA Administration Protocol Azithromycin 500 mg in 250 mls @ 250 mls/hr 11/14/20 19:00 11/18/20 21:22 Zithromax/Ns IV 250 mls/hr Q24H SHAHLA Administration Protocol Dextrose 1,000 mls @ 50 mls/hr 11/16/20 11:00 11/18/20 16:30 D5w IV 50 mls/hr DIRECT SHAHLA Administration Metronidazole 500 mg in 100 mls @ 100 mls/hr 11/17/20 15:00 11/19/20 05:26 Flagyl 500 Mg/100 Ml IV 100 mls/hr Q8HR SHAHLA Administration Protocol Insulin Glargine 14 units 11/16/20 22:00 11/18/20 21:30 Insulin Glargine 100 Units/Ml SUB-Q 14 units QHS SHAHLA Administration Insulin Human Lispro 0 unit 11/15/20 11:30 11/18/20 22:30 Insulin Lispro 100 Unit/Ml SUB-Q 4 unit ACHS SHAHLA Administration Protocol Oxycodone/Acetaminophen 1 tab 11/15/20 11:45 11/15/20 19:56 Oxycodone /Acetaminophen 5-325mg Tab PO 1 tab Q4H PRN Administration Pain, Moderate (4-6) Pravastatin Sodium 40 mg 11/15/20 22:00 11/18/20 21:22 Pravastatin 40 Mg Tab PO 40 mg QHS SHAHLA Administration Sodium Chloride 10 ml 11/14/20 22:00 11/18/20 21:23 Sodium Chloride 0.9% 10 Ml Flush Syringe IV 10 ml BID SHAHLA Administration Sodium Chloride 10 ml 11/14/20 18:33 Sodium Chloride 0.9% 10 Ml Flush Syringe IV PRN PRN LINE FLUSH Nutrition/Malnutrition Assess - Dietary Evaluation Nutrition/Malnutrition Findings: Nutrition Notes Start: 11/15/20 10:28 Freq: Status: Active Protocol: Document 11/18/20 11:15 NHALL (Rec: 11/18/20 11:21 NHALL [id number]) Nutrition Notes Initial or Follow up Reassessment Current Diagnosis Acute Kidney Injury,Diabetes, Sepsis,Hyperlipidemia Other Pertinent Diagnosis UTI, bilat pneu, vascular dementia, depression, r/o COVID-19 Current Diet Consistent CHO pureed + Glucerna TID Labs/Tests Na 152 BUN 62 Cr 3.9 BG 224 Pertinent Medications D5W at 50ml/hr Lantus Height 5 ft 4 in Weight 46.8 kg [place] Body Weight (kg) 54.54 BMI 17.6 Weight Status Underweight Subjective/Other Information No PO intakes documented. Per ELECTRIC METER REPAIRER evaluation today, pt severely demented and holds bolus in oral cavity with failure to swallow; aspiration also noted. ELECTRIC METER REPAIRER recommends PEG placement. Burn Absent Trauma Absent #1 Nutrition Diagnosis Predicted suboptimal energy intake,Inadequate oral intake Comments: CHANGED Etiology dementia As Evidenced by Signs and Symptoms per ELECTRIC METER REPAIRER, pt with failure to swallow and signs of aspiration Is patient on ventilator? No Is Patient Ambulatory and/or Out of Bed No REE-([facility]-confined to bed) [phone] Kcal/Kg value to use for calculation 35 Approximate Energy Requirements Using 1638 kcal/Kg Calculation Used for Recommendations Kcal/kg Additional Notes Pro needs 1.2-1.5g/k-70g/ day Fluid needs 1ml/kcal Nutrition Intervention Change Diet Order: D/C current diet order Nutrition Support: Start EN support when medically feasible Recommend Glucerna 1.2 at 50ml /hr. Goal #1 Start EN support to meet nutrient needs Goal #2 Wt maintenance and/or gain Anticipated Discharge Needs: EN support to meet nutrient needs and prevent further wt loss Follow-Up By: 11/19/20 Additional Comments F/U: TF consult
[2020-11-19 09:40] LABS: Total Cells Counted 100
[2020-11-19 09:44] LABS: Platelet Estimate Consistent w Auto; RBC Morphology Normal
--- NOTE | 2020-11-19 10:43 | Progress Note ---
Assessment and Plan Patient is weak. Patient awake but not following commands. No acute respiratory distress. Poor dental hygiene. On 2.5L O2. O2 saturation 95%. Patient is afebrile with leukocytosis. Chest X-ray performed 11/14/20. Chest x-ray shows interval development of patchy bibasilar airspace opacities worrisome for pneumonia in the appropriate clinical setting. Recommend follow-up chest radiograph in 6-12 weeks following treatment to ensure resolution. Patient is COVID-19 negative. Patient presently on ceftriaxone, metronidazole, s/c heparin, and famotidine. - Patient Problems (1) Acute hypoxemic respiratory failure Current Visit: No Status: Acute Plan to address problem: Patient presently on 2.5L O2. O2 saturation 95%. Continue s/c heparin. Continue famotidine. (2) Pneumonia Current Visit: Yes Status: Acute Plan to address problem: Patient is on ceftriaxone, and metronidazole. (3) Sepsis Current Visit: Yes Status: Acute Plan to address problem: Patient is on ceftriaxone, and metronidazole. (4) Acute encephalopathy Current Visit: Yes Status: Acute Plan to address problem: Management as per primary care. (5) DKA (diabetic ketoacidoses) Current Visit: Yes Status: Acute Qualifiers: Diabetes mellitus type: type 1 Plan to address problem: Management as per primary care. (6) Suspected 2019-nCoV infection Current Visit: Yes Status: Acute Plan to address problem: Negative COVID-19 test. Subjective Date of service: 11/19/20 Principal diagnosis: Ac hypoxemic resp failure; Sepsis; DKA; RACH; Pneumonia; PUI COVID-19 Interval history: Patient is weak. Patient awake but not following commands. No acute respiratory distress. Poor dental hygiene. On 2.5L O2. O2 saturation 95%. Patient is afebrile with leukocytosis. Chest X-ray performed 11/14/20. Chest x-ray shows interval development of patchy bibasilar airspace opacities worrisome for pneumonia in the appropriate clinical setting. Recommend follow-up chest radiograph in 6-12 weeks following treatment to ensure resolution. Patient is COVID-19 negative. Patient presently on ceftriaxone, metronidazole, s/c heparin, and famotidine. Objective Vital Signs - 12hr 11/18/20 11/19/20 11/19/20 23:00 04:17 07:41 Temperature 98.2 F Pulse Rate 67 Respiratory 17 20 Rate Blood Pressure 106/51 O2 Sat by Pulse 100 98 95 Oximetry Constitutional: no acute distress, alert, appears uncomfortable Eyes: non-icteric ENT: oropharynx dry Neck: supple, no lymphadenopathy, no JVD Effort: mildly labored Ascultation: Bilateral: diminished breath sounds, rhonchi Percussion: Bilateral: not dull Cardiovascular: regular rate and rhythm Gastrointestinal: normoactive bowel sounds, soft, non-tender, non-distended Integumentary: other (see [facility] notes) Extremities: no cyanosis, no edema, pink and warm, pulses normal Neurologic: pupils equal and round, CN II-XII normal, motor strength normal and, other (+ cognitive dysfunction) Psychiatric: anxious CBC and BMP: 11/19/20 07:08 11/19/20 07:08 ABG, PT/INR, D-dimer: PT/INR, D-dimer PT 15.3 Sec. (12.2-14.9) H 11/14/20 16:23 INR 1.21 (0.87-1.13) H 11/14/20 16:23 D-Dimer 2876.26 ng/mlDDU (0-234) H 11/14/20 18:30 Abnormal lab findings: Abnormal Labs 11/14/20 11/14/20 11/14/20 16:23 16:23 16:23 WBC 14.5 H RBC 3.48 L Hgb Hct MCV 101 H RDW Seg Neuts % (Manual) 92.0 H Lymphocytes % (Manual) 5.0 L Seg Neutrophils # Man 13.3 H Lymphocytes # (Manual) 0.7 L PT 15.3 H INR 1.21 H APTT 23.1 L D-Dimer VBG pH Sodium Potassium Chloride Carbon Dioxide BUN Creatinine Glucose POC Glucose Hemoglobin A1c Lactic Acid 7.50 H* Calcium Phosphorus Ferritin Alkaline Phosphatase Lactate Dehydrogenase C-Reactive Protein Total Protein Albumin Urine WBC (Auto) Urine Creatinine 11/14/20 11/14/20 11/14/20 16:23 16:23 16:27 WBC RBC Hgb Hct MCV RDW Seg Neuts % (Manual) Lymphocytes % (Manual) Seg Neutrophils # Man Lymphocytes # (Manual) PT INR APTT D-Dimer VBG pH 7.216 L Sodium 166 H* Potassium Chloride 120.8 H Carbon Dioxide 6 L* BUN 36 H Creatinine 1.9 H Glucose 765 H* POC Glucose Hemoglobin A1c Lactic Acid Calcium 11.4 H Phosphorus Ferritin Alkaline Phosphatase 259 H Lactate Dehydrogenase C-Reactive Protein Total Protein Albumin 3.3 L Urine WBC (Auto) 38.0 H Urine Creatinine 11/14/20 11/14/20 11/14/20 18:22 18:22 18:22 WBC RBC Hgb Hct MCV RDW Seg Neuts % (Manual) Lymphocytes % (Manual) Seg Neutrophils # Man Lymphocytes # (Manual) PT INR APTT D-Dimer VBG pH Sodium Potassium Chloride Carbon Dioxide 11 L BUN 32 H Creatinine 1.5 H Glucose 695 H* POC Glucose Hemoglobin A1c Lactic Acid 2.60 H* Calcium Phosphorus 1.30 L Ferritin Alkaline Phosphatase Lactate Dehydrogenase C-Reactive Protein Total Protein Albumin Urine WBC (Auto) Urine Creatinine 11/14/20 11/14/20 11/14/20 18:30 18:30 18:30 WBC RBC Hgb Hct MCV RDW Seg Neuts % (Manual) Lymphocytes % (Manual) Seg Neutrophils # Man Lymphocytes # (Manual) PT INR APTT D-Dimer 2876.26 H VBG pH Sodium Potassium Chloride Carbon Dioxide BUN Creatinine Glucose POC Glucose Hemoglobin A1c Lactic Acid Calcium Phosphorus Ferritin 623.7 H Alkaline Phosphatase Lactate Dehydrogenase 247 H C-Reactive Protein 52.00 H Total Protein Albumin Urine WBC (Auto) Urine Creatinine 11/14/20 11/14/20 11/14/20 20:23 23:08 23:08 WBC RBC Hgb Hct MCV RDW Seg Neuts % (Manual) Lymphocytes % (Manual) Seg Neutrophils # Man Lymphocytes # (Manual) PT INR APTT D-Dimer VBG pH Sodium Potassium 2.6 L* D Chloride 109.4 H Carbon Dioxide 8 L* 10 L BUN 33 H 32 H Creatinine 1.6 H < 0.2 L D Glucose 753 H* 509 H* POC Glucose Hemoglobin A1c Lactic Acid 5.70 H* Calcium Phosphorus Ferritin Alkaline Phosphatase Lactate Dehydrogenase C-Reactive Protein Total Protein Albumin Urine WBC (Auto) Urine Creatinine 11/14/20 11/15/20 11/15/20 23:14 00:01 00:54 WBC RBC Hgb Hct MCV RDW Seg Neuts % (Manual) Lymphocytes % (Manual) Seg Neutrophils # Man Lymphocytes # (Manual) PT INR APTT D-Dimer VBG pH Sodium Potassium Chloride Carbon Dioxide BUN Creatinine Glucose POC Glucose 427 H 375 H 280 H Hemoglobin A1c Lactic Acid Calcium Phosphorus Ferritin Alkaline Phosphatase Lactate Dehydrogenase C-Reactive Protein Total Protein Albumin Urine WBC (Auto) Urine Creatinine 11/15/20 11/15/20 11/15/20 01:58 02:56 04:53 WBC RBC Hgb Hct MCV RDW Seg Neuts % (Manual) Lymphocytes % (Manual) Seg Neutrophils # Man Lymphocytes # (Manual) PT INR APTT D-Dimer VBG pH Sodium Potassium Chloride Carbon Dioxide BUN Creatinine Glucose POC Glucose 191 H 124 H 140 H Hemoglobin A1c Lactic Acid Calcium Phosphorus Ferritin Alkaline Phosphatase Lactate Dehydrogenase C-Reactive Protein Total Protein Albumin Urine WBC (Auto) Urine Creatinine 11/15/20 11/15/20 11/15/20 06:18 06:18 06:18 WBC RBC 2.74 L Hgb 8.9 L Hct 26.1 L D MCV RDW 12.8 L Seg Neuts % (Manual) 81.0 H Lymphocytes % (Manual) Seg Neutrophils # Man 8.7 H Lymphocytes # (Manual) PT INR APTT D-Dimer VBG pH Sodium 149 H 149 H Potassium Chloride 116.2 H 117.4 H Carbon Dioxide 20 L D 20 L BUN 33 H 32 H Creatinine 1.6 H D 1.6 H Glucose 236 H 231 H POC Glucose Hemoglobin A1c Lactic Acid Calcium Phosphorus Ferritin Alkaline Phosphatase 184 H Lactate Dehydrogenase C-Reactive Protein Total Protein 5.8 L D Albumin 2.5 L Urine WBC (Auto) Urine Creatinine 11/15/20 11/15/20 11/15/20 06:24 10:15 10:18 WBC RBC Hgb Hct MCV RDW Seg Neuts % (Manual) Lymphocytes % (Manual) Seg Neutrophils # Man Lymphocytes # (Manual) PT INR APTT D-Dimer VBG pH Sodium 148 H Potassium Chloride 116.4 H Carbon Dioxide 19 L BUN 33 H Creatinine 1.8 H Glucose 133 H POC Glucose 223 H Hemoglobin A1c 10.8 H Lactic Acid Calcium Phosphorus Ferritin Alkaline Phosphatase Lactate Dehydrogenase C-Reactive Protein Total Protein Albumin Urine WBC (Auto) Urine Creatinine 11/15/20 11/15/20 11/15/20 12:20 17:44 18:31 WBC RBC Hgb Hct MCV RDW Seg Neuts % (Manual) Lymphocytes % (Manual) Seg Neutrophils # Man Lymphocytes # (Manual) PT INR APTT D-Dimer VBG pH Sodium 149 H Potassium Chloride 114.2 H Carbon Dioxide 15 L BUN 37 H Creatinine 2.0 H Glucose 400 H POC Glucose 266 H 350 H Hemoglobin A1c Lactic Acid Calcium Phosphorus Ferritin Alkaline Phosphatase Lactate Dehydrogenase C-Reactive Protein Total Protein Albumin Urine WBC (Auto) Urine Creatinine 11/15/20 11/16/20 11/16/20 21:40 07:00 07:56 WBC RBC Hgb Hct MCV RDW Seg Neuts % (Manual) Lymphocytes % (Manual) Seg Neutrophils # Man Lymphocytes # (Manual) PT INR APTT D-Dimer VBG pH Sodium 152 H Potassium Chloride 118.9 H Carbon Dioxide 17 L BUN 43 H Creatinine 2.7 H Glucose 204 H POC Glucose 195 H 222 H Hemoglobin A1c Lactic Acid Calcium 8.0 L Phosphorus 4.70 H D Ferritin Alkaline Phosphatase Lactate Dehydrogenase C-Reactive Protein Total Protein Albumin Urine WBC (Auto) Urine Creatinine 11/16/20 11/16/20 11/16/20 11:40 17:06 21:07 WBC RBC Hgb Hct MCV RDW Seg Neuts % (Manual) Lymphocytes % (Manual) Seg Neutrophils # Man Lymphocytes # (Manual) PT INR APTT D-Dimer VBG pH Sodium Potassium Chloride Carbon Dioxide BUN Creatinine Glucose POC Glucose 201 H 315 H 230 H Hemoglobin A1c Lactic Acid Calcium Phosphorus Ferritin Alkaline Phosphatase Lactate Dehydrogenase C-Reactive Protein Total Protein Albumin Urine WBC (Auto) Urine Creatinine 11/17/20 11/17/20 11/17/20 07:57 10:30 11:17 WBC RBC Hgb Hct MCV RDW Seg Neuts % (Manual) Lymphocytes % (Manual) Seg Neutrophils # Man Lymphocytes # (Manual) PT INR APTT D-Dimer VBG pH Sodium 153 H Potassium 3.4 L Chloride 122.1 H Carbon Dioxide 19 L BUN 54 H Creatinine 3.6 H Glucose 108 H POC Glucose 253 H 106 H Hemoglobin A1c Lactic Acid Calcium Phosphorus Ferritin Alkaline Phosphatase Lactate Dehydrogenase C-Reactive Protein Total Protein Albumin Urine WBC (Auto) Urine Creatinine 11/17/20 11/17/20 11/17/20 16:00 20:20 20:20 WBC RBC Hgb Hct MCV RDW Seg Neuts % (Manual) Lymphocytes % (Manual) Seg Neutrophils # Man Lymphocytes # (Manual) PT INR APTT D-Dimer VBG pH Sodium Potassium Chloride Carbon Dioxide BUN Creatinine Glucose POC Glucose 198 H Hemoglobin A1c Lactic Acid Calcium Phosphorus Ferritin Alkaline Phosphatase Lactate Dehydrogenase C-Reactive Protein Total Protein Albumin Urine WBC (Auto) 66.0 H Urine Creatinine 67.2 H 11/17/20 11/18/20 11/18/20 21:23 07:43 09:23 WBC 21.0 H RBC 2.97 L Hgb 9.1 L Hct 28.0 L MCV RDW Seg Neuts % (Manual) 89.0 H Lymphocytes % (Manual) 6.0 L Seg Neutrophils # Man 18.7 H Lymphocytes # (Manual) PT INR APTT D-Dimer VBG pH Sodium Potassium Chloride Carbon Dioxide BUN Creatinine Glucose POC Glucose 193 H 181 H Hemoglobin A1c Lactic Acid Calcium Phosphorus Ferritin Alkaline Phosphatase Lactate Dehydrogenase C-Reactive Protein Total Protein Albumin Urine WBC (Auto) Urine Creatinine 11/18/20 11/18/20 11/18/20 09:23 12:54 16:20 WBC RBC Hgb Hct MCV RDW Seg Neuts % (Manual) Lymphocytes % (Manual) Seg Neutrophils # Man Lymphocytes # (Manual) PT INR APTT D-Dimer VBG pH Sodium 152 H Potassium Chloride 119.1 H Carbon Dioxide 19 L BUN 62 H Creatinine 3.9 H Glucose 224 H POC Glucose 297 H 340 H Hemoglobin A1c Lactic Acid Calcium 8.1 L Phosphorus Ferritin Alkaline Phosphatase Lactate Dehydrogenase C-Reactive Protein Total Protein Albumin Urine WBC (Auto) Urine Creatinine 11/18/20 11/19/20 11/19/20 21:28 07:08 07:08 WBC 15.4 H RBC 2.85 L Hgb 8.7 L Hct 26.5 L MCV RDW Seg Neuts % (Manual) 94.0 H Lymphocytes % (Manual) 5.0 L Seg Neutrophils # Man 14.5 H Lymphocytes # (Manual) 0.8 L PT INR APTT D-Dimer VBG pH Sodium 150 H Potassium Chloride 119.5 H Carbon Dioxide 17 L BUN 69 H Creatinine 4.0 H Glucose 274 H POC Glucose 305 H Hemoglobin A1c Lactic Acid Calcium 8.3 L Phosphorus Ferritin Alkaline Phosphatase Lactate Dehydrogenase C-Reactive Protein Total Protein Albumin Urine WBC (Auto) Urine Creatinine Allied health notes reviewed: nursing
[2020-11-19] MEDS: HEPARIN 5,000 UNIT/1 ML VIAL SUB-Q SCH ×2 (12:00→22:19)
[2020-11-19] MEDS: oxyCODONE /ACETAMINOPHEN 5-325MG TAB PO PRN ×2 (12:00→22:18)
[2020-11-19] MEDS: CITALOPRAM 20 MG TAB PO SCH (12:00)
[2020-11-19] MEDS: FAMOTIDINE 20 MG TAB PO SCH (12:54)
--- NOTE | 2020-11-19 13:57 | Progress Note ---
Assessment and Plan Cultures: 11/14/2020 blood culture: no growth 11/14/2020 urine culture: No growth 11/17/2020 urine culture: mixed dillon COVID-19 PCR: Negative A/P: 55-year-old female with diabetes, hyperlipidemia, vascular dementia was brought in from the half-way due to confusion. She had COVID-19 in February 2020, now with DKA and: #Sepsis: Secondary to pneumonia v/s UTI. Chest x-ray with patchy bilateral infiltrates. Also rule out COVID-19. Procalcitonin was 30.66. Abdominal CT with nonobstructive renal calculus. #UTI: UA with pyuria. Admitted with DKA. #Diabetic ketoacidosis: required insulin drip while in ICU. #Acute encephalopathy: Likely metabolic, sodium very high on admission. Also, reportedly with underlying vascular dementia. #RACH: Renally dose antibiotics. #Severe gingivitis/periodontitis Recs: -Continue ceftriaxone, flagyl -CT sinuses and brain ordered, severe periodontal disease Krystina Townsend MD, FACP [facility] O: [phone] F: [phone] Subjective Date of service: 11/19/20 Principal diagnosis: Ac hypoxemic resp failure; Sepsis; DKA; RACH; Pneumonia; PUI COVID-19 Interval history: No fever. Remains on oxygen. Encephalopathic. Objective - Exam Narrative Exam: Physical Exam: Constitutional: Awake, does not respond well Head, Ears, Nose: Normocephalic, atraumatic. External ears, nose normal Eyes: Conjunctivae/corneas clear. No icterus. No ptosis. Neck: Supple, no meningeal signs Oral: severe dental and periodontal disease Cardiovascular: S1, S2 normal. Respiratory: Good air entry, clear to auscultation bilaterally GI: Soft, non-tender; bowel sounds normal. No peritoneal signs Musculoskeletal: No pedal edema, no cyanosis. Skin: No rash or abscess Hem/Lymphatic: No palpable cervical or supraclavicular nodes. No lymphangitis Psych: Awake, no agitation Neurological: Awake, doesn't communicate - Constitutional Vitals: Vital Signs Temp Pulse Resp BP Pulse Ox 98.2 F 67 20 106/51 95 11/19/20 04:17 11/19/20 04:17 11/19/20 04:17 11/19/20 04:17 11/19/20 07:41 Temperature -Last 24 Hours Temperature 98.2 F Temperature 99.8 F Temperature 98.9 F - Labs CBC & Chem 7: 11/19/20 07:08 11/19/20 07:08 Labs: Abnormal lab results 11/18/20 11/18/20 11/19/20 Range/Units 16:20 21:28 07:08 WBC 15.4 H (4.5-11.0) K/mm3 RBC 2.85 L (3.65-5.03) M/mm3 Hgb 8.7 L (10.1-14.3) gm/dl Hct 26.5 L (30.3-42.9) % Seg Neuts % (Manual) 94.0 H (40.0-70.0) % Lymphocytes % (Manual) 5.0 L (13.4-35.0) % Seg Neutrophils # Man 14.5 H (1.8-7.7) K/mm3 Lymphocytes # (Manual) 0.8 L (1.2-5.4) K/mm3 Sodium (137-145) mmol/L Chloride (98-107) mmol/L Carbon Dioxide (22-30) mmol/L BUN (7-17) mg/dL Creatinine (0.6-1.2) mg/dL Glucose (65-100) mg/dL POC Glucose 340 H 305 H (70-105) mg/dL Calcium (8.4-10.2) mg/dL 11/19/20 Range/Units 07:08 WBC (4.5-11.0) K/mm3 RBC (3.65-5.03) M/mm3 Hgb (10.1-14.3) gm/dl Hct (30.3-42.9) % Seg Neuts % (Manual) (40.0-70.0) % Lymphocytes % (Manual) (13.4-35.0) % Seg Neutrophils # Man (1.8-7.7) K/mm3 Lymphocytes # (Manual) (1.2-5.4) K/mm3 Sodium 150 H (137-145) mmol/L Chloride 119.5 H (98-107) mmol/L Carbon Dioxide 17 L (22-30) mmol/L BUN 69 H (7-17) mg/dL Creatinine 4.0 H (0.6-1.2) mg/dL Glucose 274 H (65-100) mg/dL POC Glucose (70-105) mg/dL Calcium 8.3 L (8.4-10.2) mg/dL
--- NOTE | 2020-11-19 15:45 | Cat Scan Report ---
CT SINUSES WITHOUT CONTRAST HISTORY: Severe periodontal disease, altered mental status COMPARISON: None. TECHNIQUE: Axial images of the sinuses were obtained. Coronal and sagittal reformats were generated. All CT scans at this location are performed using CT dose reduction for ALARA by means of automated exposure control. CONTRAST: None. FINDINGS: Nasal septum: No significant deviation. Paranasal sinuses: Clear. Ostiomeatal complex: No significant abnormality. Visualized mastoid air cells: No significant abnormality. Visualized intracranial space: No significant abnormality. Visualized orbits: No significant abnormality. Additional findings: None. IMPRESSION: 1. No significant abnormality. Signer Name: Lauro Acevedo Jr, MD Signed: 11/19/2020 3:41 PM Workstation Name: [id number]
--- NOTE | 2020-11-19 15:46 | Cat Scan Report ---
CT HEAD WITHOUT CONTRAST INDICATION / CLINICAL INFORMATION: AMS, severe periodontal disease. TECHNIQUE: Axial imaging performed from the skull apex through the skull base without the use of cont rast. Sagittal and coronal reformatted images. All CT scans at this location are performed using CT dose reduction for ALARA by means of automated exposure control. COMPARISON: None available. FINDINGS: CEREBRAL PARENCHYMA: No significant abnormality. No acute territorial infarct. HEMORRHAGE: None. EXTRA-AXIAL SPACES: Normal in size and morphology for the patient's age. VENTRICULAR SYSTEM: Normal in size and morphology for the patient's age. MIDLINE SHIFT OR HERNIATION: None. CEREBELLUM / BRAINSTEM: There is moderate cerebellar atrophy. 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 The b rainstem is unremarkable. CALVARIUM: No significant abnormality. ORBITS: Normal as visualized. PARANASAL SINUSES / MASTOID AIR CELLS: Normal as visualized. SOFT TISSUES of HEAD: No significant abnormality. ADDITIONAL FINDINGS: None. IMPRESSION: No acute intracranial abnormality. Advanced cerebellar atrophy. Signer Name: Lauro Acevedo Jr, MD Signed: 11/19/2020 3:42 PM Workstation Name: [id number]
[2020-11-19] MEDS: cefTRIAXone/NS 2 GM/100 ML 2 GM/100 ML BAG IV SCH (20:32)
[2020-11-19] MEDS: INSULIN GLARGINE 100 UNITS/ML SUB-Q SCH (22:18)
[2020-11-19] MEDS: PRAVASTATIN 40 MG TAB PO SCH (22:19)
[2020-11-20] MEDS: metroNIDAZOLE/NS 500 MG/100 ML 500 MG/100 ML BAG IV SCH ×3 (05:16→22:11)
[2020-11-20] MEDS: INSULIN LISPRO 100 UNIT/ML SUB-Q SCH ×4 (09:08→22:13)
--- NOTE | 2020-11-20 10:08 | Progress Note ---
Assessment and Plan Assessment and plan: This is a 55-year-old female who is a resident of [facility] with vascular dementia, depression, developmental delay, debility, diabetes mellitus, hyperlipidemia, recent COVID 19 infection, chronic kidney disease and recurrent DKA who presents the emergency department on 11/14 with reported confusion and ill-appearing over the past day and hypoglycemia. Evaluation in the emergency department revealed sepsis with tachycardia, febrile to 102.8, tachypnea, lactic acidosis and RACH suspected secondary to urinary tract infection/?covid 19 pna, diabetic ketoacidosis, metabolic acidosis, toxic metabolic encephalopathy, acute kidney injury and hypernatremia. Patient was in sepsis, DKA, follow DKA pathway on insulin drip in ICU, stabilized and transferred to the floor COVID-19 positive, COVID-19 negative, ID following Assessment ; Dysphagia; failed swallow eval For PEG placement, GI consulted sepsis Bilateral pneumonia Urinary tract infection Gingivitis and periodontitis Covid 19 negative DKA-resolved: Uncontrolled diabetes mellitus RACH /worsening renal function nephrology considering hemodialysis Toxic metabolic encephalopathy/multifactorial Hypernaturemia, improving Lactic acidosis, resolved Hypophosphatemia Hypokalemia, resolved Elevated ddimer/venous Doppler negative for DVT Plan; GI consulted for PEG placement, Continue current antibiotics Rocephin, and Flagyl Zithromax discontinued, As recommended by ID Follow cultures Patient needs outpatient dentists evaluation upon discharge Insulin glargine dose increased,Closely monitor blood sugars Follow nephrology evaluation recommendations planning dialysis DVT prophylaxis Heparin renal dose Plan of care reviewed with patient and 11/15: Patient has been transitioned to sliding scale insulin and started on a pured diet. Per SNF patient has completed antibiotic therapy for her mouth. Her leukocytosis, hypernatremia, hyperchloremia, metabolic acidosis have improved. She has worsening kidney function. ID consulted today. 11/16: Continue IV antibiotics of ceftriaxone and azithromycin per ID recommendations. Patient has been transitioned from IV insulin drip to long- acting insulin of Lantus 14 units at bedtime. Patient does have acute kidney injury likely secondary to sepsis/ATN +/- vasomotor nephropathy. Creatinine is worse today at 2.7. Consult nephrology for further evaluation. Check CT scan of the abdomen pelvis. 11/17: Continue antibiotics per ID recommendations. Patient appears to have pneumonia and UTI. Blood and urine cultures remain negative x48 hours. Follow-up COVID-[address] scan shows a nonobstructing calculus in the right kidney. Follow-up BMP to assess renal function 11/18: Continue ceftriaxone, itraconazole and azithromycin for sepsis secondary to pneumonia/UTI. Procalcitonin elevated at 30.66. Chest x-ray revealed patchy bilateral infiltrates. Etiology aspiration pneumonia versus COVID-19. COVID-19 PCR pending. Blood and urine cultures remain negative. Nephrology following for acute kidney injury. Creatinine worsened. Follow-up BMP this morning. CT scan negative for obstruction. 11/19/2020; continue current antibiotics per ID COVID-19 test negative, patient is requiring 2 L of nasal cannula oxygen Closely monitor and adjust management as needed Consults and recommendations noted and appreciated 11/20/2020; Dysphagia, failed swallow eval, GI consulted for PEG placement GI recommend laparoscopic /surgical placement of PEG Surgeon Dr. Black consulted, follow clinically Disposition; follow clinically, discharge to SNF when medically stable Follow GI/surgery recommendations for PEG History Interval history: I have seen and examined the patient at the bedside Patient's chart and medications reviewed Patient severely dehydrated, failed swallow eval Recommended PEG placement Patient noncommunicative cachectic Malnourished Vital signs noted Hospitalist Physical - Constitutional Vitals: Temp Pulse Resp BP Pulse Ox 99.1 F 68 16 91/44 95 11/20/20 04:01 11/20/20 04:01 11/20/20 04:01 11/20/20 04:01 11/20/20 04:01 General appearance: Present: no acute distress, cachectic, disheveled - EENT Eyes: Present: PERRL, EOM intact - Neck Neck: Present: supple, normal ROM - Respiratory Respiratory effort: normal Respiratory: bilateral: diminished, negative: rales, rhonchi, wheezing - Cardiovascular Rhythm: regular Heart Sounds: Present: S1 & S2 - Extremities Extremities: no ischemia, No edema - Abdominal General gastrointestinal: soft, non-tender, non-distended, normal bowel sounds - Integumentary Integumentary: Present: clear, warm - Psychiatric Psychiatric: appropriate mood/affect, cooperative - Neurologic Neurologic: CNII-XII intact, moves all extremities HEART Score - HEART Score Troponin: Troponin T < 0.010 ng/mL (0.00-0.029) 11/14/20 16:23 Results - Labs CBC & Chem 7: 05/04/21 07:08 11/20/20 10:41 Labs: Laboratory Last Values WBC 15.4 K/mm3 (4.5-11.0) H 11/19/20 07:08 RBC 2.85 M/mm3 (3.65-5.03) L 11/19/20 07:08 Hgb 8.7 gm/dl (10.1-14.3) L 11/19/20 07:08 Hct 26.5 % (30.3-42.9) L 11/19/20 07:08 MCV 93 fl (79-97) 11/19/20 07:08 MCH 31 pg (28-32) 11/19/20 07:08 MCHC 33 % (30-34) 11/19/20 07:08 RDW 13.5 % (13.2-15.2) 11/19/20 07:08 Plt Count 173 K/mm3 (140-440) 11/19/20 07:08 Add Manual Diff Complete 11/19/20 07:08 Total Counted 100 11/19/20 07:08 Seg Neutrophils % Practical Nursing Teacher 11/14/20 16:23 Seg Neuts % (Manual) 94.0 % (40.0-70.0) H 11/19/20 07:08 Band Neutrophils % 1.0 % 11/18/20 09:23 Lymphocytes % (Manual) 5.0 % (13.4-35.0) L 11/19/20 07:08 Monocytes % (Manual) 1.0 % (0.0-7.3) 11/18/20 09:23 Eosinophils % (Manual) 1.0 % (0.0-4.3) 11/19/20 07:08 Metamyelocytes % 1.0 % 11/18/20 09:23 Nucleated RBC % Not Reportable 11/19/20 07:08 Seg Neutrophils # Man 14.5 K/mm3 (1.8-7.7) H 11/19/20 07:08 Band Neutrophils # 0.0 K/mm3 11/19/20 07:08 Lymphocytes # (Manual) 0.8 K/mm3 (1.2-5.4) L 11/19/20 07:08 Abs React Lymphs (Man) 0.0 K/mm3 11/19/20 07:08 Monocytes # (Manual) 0.0 K/mm3 (0.0-0.8) 11/19/20 07:08 Eosinophils # (Manual) 0.2 K/mm3 (0.0-0.4) 11/19/20 07:08 Basophils # (Manual) 0.0 K/mm3 (0.0-0.1) 11/19/20 07:08 Metamyelocytes # 0.0 K/mm3 11/19/20 07:08 Myelocytes # 0.0 K/mm3 11/19/20 07:08 Promyelocytes # 0.0 K/mm3 11/19/20 07:08 Blast Cells # 0.0 K/mm3 11/19/20 07:08 WBC Morphology Not Reportable 11/19/20 07:08 Hypersegmented Neuts Not Reportable 11/19/20 07:08 Hyposegmented Neuts Not Reportable 11/19/20 07:08 Hypogranular Neuts Not Reportable 11/19/20 07:08 Smudge Cells Not Reportable 11/19/20 07:08 Toxic Granulation Not Reportable 11/19/20 07:08 Toxic Vacuolation Not Reportable 11/19/20 07:08 Dohle Bodies Not Reportable 11/19/20 07:08 Pelger-Huet Anomaly Not Reportable 11/19/20 07:08 Jamia Rods Not Reportable 11/19/20 07:08 Platelet Estimate Consistent w auto 11/19/20 07:08 Clumped Platelets Not Reportable 11/19/20 07:08 Plt Clumps, EDTA Not Reportable 11/19/20 07:08 Large Platelets Not Reportable 11/19/20 07:08 Giant Platelets Not Reportable 11/19/20 07:08 Platelet Satelliting Not Reportable 11/19/20 07:08 Plt Morphology Comment Not Reportable 11/19/20 07:08 RBC Morphology Normal 11/19/20 07:08 Dimorphic RBCs Not Reportable 11/19/20 07:08 Polychromasia Not Reportable 11/19/20 07:08 Hypochromasia Not Reportable 11/19/20 07:08 Poikilocytosis Not Reportable 11/19/20 07:08 Anisocytosis Not Reportable 11/19/20 07:08 Microcytosis Not Reportable 11/19/20 07:08 Macrocytosis Not Reportable 11/19/20 07:08 Spherocytes Not Reportable 11/19/20 07:08 Pappenheimer Bodies Not Reportable 11/19/20 07:08 Sickle Cells Not Reportable 11/19/20 07:08 Target Cells Not Reportable 11/19/20 07:08 Tear Drop Cells Not Reportable 11/19/20 07:08 Ovalocytes Not Reportable 11/19/20 07:08 Helmet Cells Not Reportable 11/19/20 07:08 [place] Bodies Not Reportable 11/19/20 07:08 [place] Rings Not Reportable 11/19/20 07:08 Luis Cells Not Reportable 11/19/20 07:08 Bite Cells Not Reportable 11/19/20 07:08 Crenated Cell Not Reportable 11/19/20 07:08 Elliptocytes Not Reportable 11/19/20 07:08 Acanthocytes (Spur) Not Reportable 11/19/20 07:08 Rouleaux Not Reportable 11/19/20 07:08 Hemoglobin C Crystals Not Reportable 11/19/20 07:08 Schistocytes Not Reportable 11/19/20 07:08 Malaria parasites Not Reportable 11/19/20 07:08 Felice Bodies Not Reportable 11/19/20 07:08 Hem Pathologist Commnt No 11/19/20 07:08 PT 15.3 Sec. (12.2-14.9) H 11/14/20 16:23 INR 1.21 (0.87-1.13) H 11/14/20 16:23 APTT 23.1 Sec. (24.2-36.6) L 11/14/20 16:23 D-Dimer 2876.26 ng/mlDDU (0-234) H 11/14/20 18:30 VBG pH 7.216 (7.320-7.420) L 11/14/20 16:23 Sodium 150 mmol/L (137-145) H 11/19/20 07:08 Potassium 3.9 mmol/L (3.6-5.0) D 11/19/20 07:08 Chloride 119.5 mmol/L (98-107) H 11/19/20 07:08 Carbon Dioxide 17 mmol/L (22-30) L 11/19/20 07:08 Anion Gap 17 mmol/L 11/19/20 07:08 BUN 69 mg/dL (7-17) H 11/19/20 07:08 Creatinine 4.0 mg/dL (0.6-1.2) H 11/19/20 07:08 Estimated GFR 12 ml/min 11/19/20 07:08 BUN/Creatinine Ratio 17 % 11/19/20 07:08 Glucose 274 mg/dL (65-100) H 11/19/20 07:08 POC Glucose 340 mg/dL (70-105) H 11/19/20 23:40 Hemoglobin A1c 10.8 % (4-6) H 11/15/20 10:15 Ketones Quantitative Moderate (Negative) 11/14/20 16:23 Lactic Acid 1.60 mmol/L (0.7-2.0) 11/15/20 06:18 Calcium 8.3 mg/dL (8.4-10.2) L 11/19/20 07:08 Phosphorus 4.70 mg/dL (2.5-4.5) H D 11/16/20 07:00 Magnesium 2.20 mg/dL (1.7-2.3) 11/14/20 18:22 Ferritin 623.7 ng/mL (10.0-200.0) H 11/14/20 18:30 Total Bilirubin < 0.20 mg/dL (0.1-1.2) 11/15/20 06:18 Direct Bilirubin < 0.2 mg/dL (0-0.2) 11/14/20 16:23 Indirect Bilirubin 0.0 mg/dL 11/14/20 16:23 AST 27 units/L (5-40) 11/15/20 06:18 ALT 20 units/L (7-56) 11/15/20 06:18 Alkaline Phosphatase 184 units/L (35-129) H 11/15/20 06:18 Lactate Dehydrogenase 247 units/L (91-180) H 11/14/20 18:30 Troponin T < 0.010 ng/mL (0.00-0.029) 11/14/20 16:23 C-Reactive Protein 52.00 mg/dL (0.00-1.30) H 11/14/20 18:30 Total Protein 5.8 g/dL (6.3-8.2) L D 11/15/20 06:18 Albumin 2.5 g/dL (3.9-5) L 11/15/20 06:18 Albumin/Globulin Ratio 0.8 % 11/15/20 06:18 Procalcitonin 30.66 ng/mL (<0.15) 11/14/20 18:30 Urine Color Yellow (Yellow) 11/17/20 20:20 Urine Turbidity Cloudy (Clear) 11/17/20 20:20 Urine pH 5.0 (5.0-7.0) 11/17/20 20:20 Ur Specific Pratt 1.015 (1.003-1.030) 11/17/20 20:20 Urine Protein 100 mg/dl mg/dL (Negative) 11/17/20 20:20 Urine Glucose (UA) 150 mg/dL (Negative) 11/17/20 20:20 Urine Ketones Neg mg/dL (Negative) 11/17/20 20:20 Urine Blood Mod (Negative) 11/17/20 20:20 Urine Nitrite Neg (Negative) 11/17/20 20:20 Urine Bilirubin Neg (Negative) 11/17/20 20:20 Urine Urobilinogen < 2.0 mg/dL (<2.0) 11/17/20 20:20 Ur Leukocyte Esterase Mod (Negative) 11/17/20 20:20 Urine WBC (Auto) 66.0 /HPF (0.0-6.0) H 11/17/20 20:20 Urine RBC (Auto) 59.0 /HPF (0.0-6.0) 11/17/20 20:20 U Epithel Cells (Auto) 1.0 /HPF (0-13.0) 11/17/20 20:20 Urine Bacteria (Auto) 1+ /HPF (Negative) 11/17/20 20:20 Urine Yeast (Budding) 3+ /HPF 11/17/20 20:20 Urine Creatinine 67.2 mg/dL (0.1-20.0) H 11/17/20 20:20 Urine Sodium 74 mmol/L 11/17/20 20:20 Coronavirus (PCR) Negative (Negative) 11/17/20 11:02 Microbiology: Microbiology 11/14/20 16:23 Peripheral/Venous Blood Culture - Final NO GROWTH AFTER 5 DAYS 11/14/20 16:18 Peripheral/Venous Blood Culture - Final NO GROWTH AFTER 5 DAYS 11/17/20 20:20 Urine,Clean Catch Urine Culture - Final Verma/IV: Voiding Method Incontinent Active Medications - Current Medications Current Medications: Generic Name Dose Route Start Last Admin Trade Name Freq PRN Reason Stop Dose Admin Acetaminophen 650 mg 11/14/20 18:37 11/16/20 17:23 Acetaminophen 325 Mg Tab PO 650 mg Q6H PRN Administration Pain, Mild (1-3) Citalopram Hydrobromide 20 mg 11/16/20 10:00 11/19/20 12:00 Citalopram 20 Mg Tab PO 20 mg QDAY SHAHLA Administration Dextrose 50 ml 11/15/20 10:20 Dextrose 50% In Water (25gm) 50 Ml Syringe IV Q30MIN PRN Hypoglycemia Protocol Famotidine 20 mg 11/16/20 10:00 11/19/20 12:54 Famotidine 20 Mg Tab PO 20 mg QDAY SHAHLA Administration Heparin Sodium (Porcine) 5,000 unit 11/15/20 22:00 11/19/20 22:19 Heparin 5,000 Unit/1 Ml Vial SUB-Q 5,000 unit Q12HR SHAHLA Administration Ceftriaxone Sodium 2 gm in 100 mls @ 200 mls/hr 11/14/20 19:00 11/19/20 20:32 Rocephin/Ns 2 Gm/100 Ml IV 200 mls/hr Q24H SHAHLA Administration Protocol Dextrose 1,000 mls @ 50 mls/hr 11/16/20 11:00 11/18/20 16:30 D5w IV 50 mls/hr DIRECT SHAHLA Administration Metronidazole 500 mg in 100 mls @ 100 mls/hr 11/17/20 15:00 11/20/20 05:16 Flagyl 500 Mg/100 Ml IV 100 mls/hr Q8HR SHAHLA Administration Protocol Insulin Glargine 14 units 11/16/20 22:00 11/19/20 22:18 Insulin Glargine 100 Units/Ml SUB-Q 14 units QHS SHAHLA Administration Insulin Human Lispro 0 unit 11/15/20 11:30 11/20/20 09:08 Insulin Lispro 100 Unit/Ml SUB-Q 3 unit ACHS SHAHLA Administration Protocol Oxycodone/Acetaminophen 1 tab 11/15/20 11:45 11/19/20 22:18 Oxycodone /Acetaminophen 5-325mg Tab PO 1 tab Q4H PRN Administration Pain, Moderate (4-6) Pravastatin Sodium 40 mg 11/15/20 22:00 11/19/20 22:19 Pravastatin 40 Mg Tab PO 40 mg QHS SHAHLA Administration Sodium Chloride 10 ml 11/14/20 22:00 11/19/20 22:19 Sodium Chloride 0.9% 10 Ml Flush Syringe IV 10 ml BID SHAHLA Administration Sodium Chloride 10 ml 11/14/20 18:33 Sodium Chloride 0.9% 10 Ml Flush Syringe IV PRN PRN LINE FLUSH Nutrition/Malnutrition Assess - Dietary Evaluation Nutrition/Malnutrition Findings: Nutrition Notes Start: 11/15/20 10:28 Freq: Status: Active Protocol: Document 11/20/20 09:12 AT (Rec: 11/20/20 09:20 AT [id number]) Co-Sign 11/20/20 09:12 Nutrition Notes Initial or Follow up Brief Note Current Diagnosis Acute Kidney Injury,Diabetes, Sepsis,Hyperlipidemia Other Pertinent Diagnosis UTI, bilat pneu, vascular dementia, depression, r/o COVID-19 Current Diet No diet Subjective/Other Information Follow up for TF consult. Tool Grinder Operator Surface did not receive consult for TF 11/20/20. Nutrition Intervention Follow-Up By: 11/22/20 Additional Comments F/U for POC
--- NOTE | 2020-11-20 10:34 | Progress Note ---
Assessment and Plan 1. Acute kidney injury: Vasomotor RACH superimposed on CKD in the setting of sepsis. ATN likely. Renal US and CT abdomen negative for hydro. Monitor renal function. Creatinine level is slightly better today. Renal prognosis is guarded. Avoid nephrotoxic agents. Meds dosage based on GFR. Monitor for METAL TANK ERECTOR needs. Patient may need dialysis if the renal function is not improving. D/w sister (5/5) regarding the possibility for dialysis and she wants to proceed with dialysis if needed. She was told the indications, benefits, risks and alternatives involved in hemodialysis. She voiced understanding and gave verbal consent. 2. FEN: Hypernatremia, hypotonic IV fluids. Ur and Sr Osm ordered. Hyperchloremic metabolic acidosis, continue IV D5W, monitor. Monitor lytes and volume status. 3. Sepsis: Likely 2/2 PNA. Covid test negative. Continue abx. Follow cultures. 4. Bilateral PNA: Abx. Covid test negative. 5. DKA: Improved. 6. Anemia: Monitor. 7. HTN: Monitor BP. 8. Metabolic encephalopathy, POA. - Subjective: Patient was seen and examined at the bedside. RN at the bedside. - General Appearance: General appearance: appears stated age, not in distress, appears chronically ill HEENT: ATNC, CAITY Neck: Trachea midline Respiratory: coarse breath sounds Cardiology: regular, S1S2, no murmur Gastrointestinal: normoactive bowel sounds, not tender, not distended Integumentary: no rash, warm and dry Neurologic: lethargic, opens eyes, not following any command, non-verbal Ext: no edema Subjective Date of service: 11/20/20 Principal diagnosis: Ac hypoxemic resp failure; Sepsis; DKA; RACH; Pneumonia; PUI COVID-19 Objective - Vital Signs Vital signs: Vital Signs - 12hr 11/20/20 11/20/20 11/20/20 00:15 04:00 04:01 Temperature 99.1 F Pulse Rate 77 68 Pulse Rate [ 78 Radial] Respiratory 18 16 Rate Blood Pressure 91/44 O2 Sat by Pulse 95 95 Oximetry - Lab 11/19/20 07:08 11/20/20 10:41 Most recent lab results Calcium 8.3 mg/dL (8.4-10.2) L 11/19/20 07:08 Phosphorus 4.70 mg/dL (2.5-4.5) H D 11/16/20 07:00 Magnesium 2.20 mg/dL (1.7-2.3) 11/14/20 18:22 Urine Creatinine 67.2 mg/dL (0.1-20.0) H 11/17/20 20:20 Urine Sodium 74 mmol/L 11/17/20 20:20 Medications & Allergies - Medications Allergies/Adverse Reactions: Allergies No Known Allergies Allergy (Verified 02/26/20 10:24) Home Medications: Home Medications Medication Instructions Recorded Confirmed Last Taken Type Citalopram [Celexa] 20 mg PO QDAY 01/25/20 03/06/20 Unknown History Pravastatin [Pravachol] 40 mg PO QHS 01/25/20 03/06/20 Unknown History Acetaminophen [Mapap] 650 mg PO BID PRN 02/26/20 03/06/20 Unknown History Ascorbic Acid [Vitamin C with Chetna 500 mg PO DAILY 02/26/20 03/06/20 Unknown History Hips] Glimepiride [Amaryl] 4 mg PO QAM 02/26/20 03/06/20 Unknown History Insulin Lispro [Humalog] 5 units SQ AC 02/26/20 03/06/20 Unknown History Multivit-Min/Ferrous Fumarate 15 mg PO DAILY 02/26/20 03/06/20 Unknown History [Multivitamin with Minerals Tab] Apixaban [Eliquis] 2.5 mg PO BID #30 tablet 03/01/20 03/06/20 Unknown Rx Active Medications: Generic Name Dose Route Start Last Admin Trade Name Freq PRN Reason Stop Dose Admin Acetaminophen 650 mg 11/14/20 18:37 11/16/20 17:23 Acetaminophen 325 Mg Tab PO 650 mg Q6H PRN Administration Pain, Mild (1-3) Citalopram Hydrobromide 20 mg 11/16/20 10:00 11/19/20 12:00 Citalopram 20 Mg Tab PO 20 mg QDAY SHAHLA Administration Dextrose 50 ml 11/15/20 10:20 Dextrose 50% In Water (25gm) 50 Ml Syringe IV Q30MIN PRN Hypoglycemia Protocol Famotidine 20 mg 11/16/20 10:00 11/19/20 12:54 Famotidine 20 Mg Tab PO 20 mg QDAY SHAHLA Administration Heparin Sodium (Porcine) 5,000 unit 11/15/20 22:00 11/19/20 22:19 Heparin 5,000 Unit/1 Ml Vial SUB-Q 5,000 unit Q12HR SHAHLA Administration Ceftriaxone Sodium 2 gm in 100 mls @ 200 mls/hr 11/14/20 19:00 11/19/20 20:32 Rocephin/Ns 2 Gm/100 Ml IV 200 mls/hr Q24H SHAHLA Administration Protocol Dextrose 1,000 mls @ 50 mls/hr 11/16/20 11:00 11/18/20 16:30 D5w IV 50 mls/hr DIRECT SHAHLA Administration Metronidazole 500 mg in 100 mls @ 100 mls/hr 11/17/20 15:00 11/20/20 05:16 Flagyl 500 Mg/100 Ml IV 100 mls/hr Q8HR SHAHLA Administration Protocol Insulin Glargine 14 units 11/16/20 22:00 11/19/20 22:18 Insulin Glargine 100 Units/Ml SUB-Q 14 units QHS SHAHLA Administration Insulin Human Lispro 0 unit 11/15/20 11:30 11/20/20 09:08 Insulin Lispro 100 Unit/Ml SUB-Q 3 unit ACHS SHAHLA Administration Protocol Oxycodone/Acetaminophen 1 tab 11/15/20 11:45 11/19/20 22:18 Oxycodone /Acetaminophen 5-325mg Tab PO 1 tab Q4H PRN Administration Pain, Moderate (4-6) Pravastatin Sodium 40 mg 11/15/20 22:00 11/19/20 22:19 Pravastatin 40 Mg Tab PO 40 mg QHS SHAHLA Administration Sodium Chloride 10 ml 11/14/20 22:00 11/19/20 22:19 Sodium Chloride 0.9% 10 Ml Flush Syringe IV 10 ml BID SHAHLA Administration Sodium Chloride 10 ml 11/14/20 18:33 Sodium Chloride 0.9% 10 Ml Flush Syringe IV PRN PRN LINE FLUSH
[2020-11-20] MEDS: HEPARIN 5,000 UNIT/1 ML VIAL SUB-Q SCH ×2 (10:53→22:13)
[2020-11-20] MEDS: FAMOTIDINE 20 MG TAB PO SCH (10:53)
[2020-11-20] MEDS: CITALOPRAM 20 MG TAB PO SCH (10:54)
[2020-11-20 11:45] LABS: Calcium 8.2 mg/dL (8.4-10.2)
[2020-11-20] MEDS ORDERED: SODIUM BICARBONATE 325 MG TAB FEEDTUBE PRN (13:02)
[2020-11-20] MEDS ORDERED: LIPASE 10,500/PROTEASE 25,000/AMYLASE 43,750 (UNITS) DR CAP FEEDTUBE PRN (13:02)
[2020-11-20] MEDS ORDERED: SIMPLE SYRUP 15 ML FEEDTUBE PRN ×2 (13:02)
--- NOTE | 2020-11-20 13:53 | Progress Note ---
Assessment and Plan Cultures: 11/14/2020 blood culture: no growth 11/14/2020 urine culture: No growth 11/17/2020 urine culture: mixed dillon COVID-19 PCR: Negative A/P: 55-year-old female with diabetes, hyperlipidemia, vascular dementia was brought in from the retirement due to confusion. She had COVID-19 in February 2020, now with DKA and: #Sepsis: Secondary to pneumonia v/s UTI. Chest x-ray with patchy bilateral infiltrates. Also rule out COVID-19. Procalcitonin was 30.66. Abdominal CT with nonobstructive renal calculus. #UTI: UA with pyuria. Admitted with DKA. #Diabetic ketoacidosis: required insulin drip while in ICU. #Acute encephalopathy: Likely metabolic, sodium very high on admission. Also, reportedly with underlying vascular dementia. #RACH: Renally dose antibiotics. #Severe gingivitis/periodontitis: CT sinuses showed no abnormality. CT head showed no acute intracranial abnormality, showed severe cerebellar atrophy. Recs: -Continue ceftriaxone, flagyl, complete 7 days -will need dental eval post discharge Krystina Townsend MD, FACP [facility] O: [phone] F: [phone] Subjective Date of service: 11/20/20 Principal diagnosis: Ac hypoxemic resp failure; Sepsis; DKA; RACH; Pneumonia; PUI COVID-19 Interval history: No fever. Non verbal. Objective - Exam Narrative Exam: Physical Exam: Constitutional: Awake, non verbal, non communicative Head, Ears, Nose: Normocephalic, atraumatic. External ears, nose normal Eyes: Conjunctivae/corneas clear. No icterus. No ptosis. Neck: Supple, no meningeal signs Oral: severe dental and periodontal disease Cardiovascular: S1, S2 normal. Respiratory: Good air entry, clear to auscultation bilaterally GI: Soft, non-tender; bowel sounds normal. No peritoneal signs Musculoskeletal: No pedal edema, no cyanosis. Skin: No rash or abscess Hem/Lymphatic: No palpable cervical or supraclavicular nodes. No lymphangitis Psych: Awake, no agitation Neurological: Awake, doesn't communicate - Constitutional Vitals: Vital Signs Temp Pulse Resp BP Pulse Ox 98.5 F 86 16 120/70 87 11/20/20 10:40 11/20/20 10:40 11/20/20 10:40 11/20/20 10:40 11/20/20 10:40 Temperature -Last 24 Hours Temperature 98.5 F Temperature 99.1 F Temperature 98.5 F Temperature 97.8 F - Labs CBC & Chem 7: 11/19/20 07:08 11/20/20 10:41 Labs: Abnormal lab results 11/19/20 11/19/20 11/20/20 Range/Units 21:35 23:40 07:31 Sodium (137-145) mmol/L Chloride (98-107) mmol/L Carbon Dioxide (22-30) mmol/L BUN (7-17) mg/dL Creatinine (0.6-1.2) mg/dL Glucose (65-100) mg/dL POC Glucose 399 H 340 H 269 H (70-105) mg/dL Calcium (8.4-10.2) mg/dL 11/20/20 11/20/20 Range/Units 10:41 11:27 Sodium 147 H (137-145) mmol/L Chloride 115.6 H (98-107) mmol/L Carbon Dioxide 15 L (22-30) mmol/L BUN 75 H (7-17) mg/dL Creatinine 3.8 H (0.6-1.2) mg/dL Glucose 266 H (65-100) mg/dL POC Glucose 212 H (70-105) mg/dL Calcium 8.2 L (8.4-10.2) mg/dL
--- NOTE | 2020-11-20 16:58 | Progress Note ---
Assessment and Plan Patient is weak. Patient awake but not following commands. No acute respiratory distress. Poor dental hygiene. Suppose to be on 2 litres o2. Not keeping her O2. O2 saturation 97%. Patient is afebrile with leukocytosis. Chest X-ray performed 11/14/20. Chest x-ray shows interval development of patchy bibasilar airspace opacities worrisome for pneumonia in the appropriate clinical setting. Recommend follow-up chest radiograph in 6-12 weeks following treatment to ensure resolution. Patient is COVID-19 negative. Patient presently on ceftriaxone, metronidazole, s/c heparin, and famotidine. - Patient Problems (1) Acute hypoxemic respiratory failure Current Visit: No Status: Acute Plan to address problem: Patient is on room air. Not keeping her o2.O2 saturation 95%. Continue s/c heparin. Continue famotidine. (2) Pneumonia Current Visit: Yes Status: Acute Plan to address problem: Patient is on ceftriaxone, and metronidazole. (3) Sepsis Current Visit: Yes Status: Acute Plan to address problem: Patient is on ceftriaxone, and metronidazole. (4) Acute encephalopathy Current Visit: Yes Status: Acute Plan to address problem: Management as per primary care. (5) DKA (diabetic ketoacidoses) Current Visit: Yes Status: Acute Qualifiers: Diabetes mellitus type: type 1 Plan to address problem: Management as per primary care. (6) Suspected 2019-nCoV infection Current Visit: Yes Status: Acute Plan to address problem: Negative COVID-19 test. Subjective Date of service: 11/20/20 Principal diagnosis: Ac hypoxemic resp failure; Sepsis; DKA; RACH; Pneumonia; PUI COVID-19 Interval history: Patient is weak. Patient awake but not following commands. No acute respiratory distress. Poor dental hygiene. Suppose to be on 2 litres o2. Not keeping her O2. O2 saturation 97%. Patient is afebrile with leukocytosis. Chest X-ray performed 11/14/20. Chest x-ray shows interval development of patchy bibasilar airspace opacities worrisome for pneumonia in the appropriate clinical setting. Recommend follow-up chest radiograph in 6-12 weeks following treatment to ensure resolution. Patient is COVID-19 negative. Patient presently on ceftriaxone, metronidazole, s/c heparin, and famotidine. Objective Vital Signs - 12hr 11/20/20 11/20/20 09:35 10:40 Temperature 98.5 F Pulse Rate 86 Respiratory 16 Rate Blood Pressure 120/70 O2 Sat by Pulse 97 87 Oximetry Constitutional: no acute distress, alert, appears uncomfortable Eyes: non-icteric ENT: oropharynx dry Neck: supple, no lymphadenopathy, no JVD Effort: mildly labored Ascultation: Bilateral: diminished breath sounds, rhonchi Percussion: Bilateral: not dull Cardiovascular: regular rate and rhythm Gastrointestinal: normoactive bowel sounds, soft, non-tender, non-distended Integumentary: other (see [facility] notes) Extremities: no cyanosis, no edema, pink and warm, pulses normal Neurologic: pupils equal and round, CN II-XII normal, motor strength normal and, other (+ cognitive dysfunction) Psychiatric: anxious CBC and BMP: 11/21/20 05:04 11/21/20 05:04 ABG, PT/INR, D-dimer: PT/INR, D-dimer PT 15.3 Sec. (12.2-14.9) H 11/14/20 16:23 INR 1.21 (0.87-1.13) H 11/14/20 16:23 D-Dimer 2876.26 ng/mlDDU (0-234) H 11/14/20 18:30 Abnormal lab findings: Abnormal Labs 11/14/20 11/14/20 11/14/20 16:23 16:23 16:23 WBC 14.5 H RBC 3.48 L Hgb Hct MCV 101 H RDW Seg Neuts % (Manual) 92.0 H Lymphocytes % (Manual) 5.0 L Seg Neutrophils # Man 13.3 H Lymphocytes # (Manual) 0.7 L PT 15.3 H INR 1.21 H APTT 23.1 L D-Dimer VBG pH Sodium Potassium Chloride Carbon Dioxide BUN Creatinine Glucose POC Glucose Hemoglobin A1c Lactic Acid 7.50 H* Calcium Phosphorus Ferritin Alkaline Phosphatase Lactate Dehydrogenase C-Reactive Protein Total Protein Albumin Urine WBC (Auto) Urine Creatinine 11/14/20 11/14/20 11/14/20 16:23 16:23 16:27 WBC RBC Hgb Hct MCV RDW Seg Neuts % (Manual) Lymphocytes % (Manual) Seg Neutrophils # Man Lymphocytes # (Manual) PT INR APTT D-Dimer VBG pH 7.216 L Sodium 166 H* Potassium Chloride 120.8 H Carbon Dioxide 6 L* BUN 36 H Creatinine 1.9 H Glucose 765 H* POC Glucose Hemoglobin A1c Lactic Acid Calcium 11.4 H Phosphorus Ferritin Alkaline Phosphatase 259 H Lactate Dehydrogenase C-Reactive Protein Total Protein Albumin 3.3 L Urine WBC (Auto) 38.0 H Urine Creatinine 11/14/20 11/14/20 11/14/20 18:22 18:22 18:22 WBC RBC Hgb Hct MCV RDW Seg Neuts % (Manual) Lymphocytes % (Manual) Seg Neutrophils # Man Lymphocytes # (Manual) PT INR APTT D-Dimer VBG pH Sodium Potassium Chloride Carbon Dioxide 11 L BUN 32 H Creatinine 1.5 H Glucose 695 H* POC Glucose Hemoglobin A1c Lactic Acid 2.60 H* Calcium Phosphorus 1.30 L Ferritin Alkaline Phosphatase Lactate Dehydrogenase C-Reactive Protein Total Protein Albumin Urine WBC (Auto) Urine Creatinine 11/14/20 11/14/20 11/14/20 18:30 18:30 18:30 WBC RBC Hgb Hct MCV RDW Seg Neuts % (Manual) Lymphocytes % (Manual) Seg Neutrophils # Man Lymphocytes # (Manual) PT INR APTT D-Dimer 2876.26 H VBG pH Sodium Potassium Chloride Carbon Dioxide BUN Creatinine Glucose POC Glucose Hemoglobin A1c Lactic Acid Calcium Phosphorus Ferritin 623.7 H Alkaline Phosphatase Lactate Dehydrogenase 247 H C-Reactive Protein 52.00 H Total Protein Albumin Urine WBC (Auto) Urine Creatinine 11/14/20 11/14/20 11/14/20 20:23 23:08 23:08 WBC RBC Hgb Hct MCV RDW Seg Neuts % (Manual) Lymphocytes % (Manual) Seg Neutrophils # Man Lymphocytes # (Manual) PT INR APTT D-Dimer VBG pH Sodium Potassium 2.6 L* D Chloride 109.4 H Carbon Dioxide 8 L* 10 L BUN 33 H 32 H Creatinine 1.6 H < 0.2 L D Glucose 753 H* 509 H* POC Glucose Hemoglobin A1c Lactic Acid 5.70 H* Calcium Phosphorus Ferritin Alkaline Phosphatase Lactate Dehydrogenase C-Reactive Protein Total Protein Albumin Urine WBC (Auto) Urine Creatinine 11/14/20 11/15/20 11/15/20 23:14 00:01 00:54 WBC RBC Hgb Hct MCV RDW Seg Neuts % (Manual) Lymphocytes % (Manual) Seg Neutrophils # Man Lymphocytes # (Manual) PT INR APTT D-Dimer VBG pH Sodium Potassium Chloride Carbon Dioxide BUN Creatinine Glucose POC Glucose 427 H 375 H 280 H Hemoglobin A1c Lactic Acid Calcium Phosphorus Ferritin Alkaline Phosphatase Lactate Dehydrogenase C-Reactive Protein Total Protein Albumin Urine WBC (Auto) Urine Creatinine 11/15/20 11/15/20 11/15/20 01:58 02:56 04:53 WBC RBC Hgb Hct MCV RDW Seg Neuts % (Manual) Lymphocytes % (Manual) Seg Neutrophils # Man Lymphocytes # (Manual) PT INR APTT D-Dimer VBG pH Sodium Potassium Chloride Carbon Dioxide BUN Creatinine Glucose POC Glucose 191 H 124 H 140 H Hemoglobin A1c Lactic Acid Calcium Phosphorus Ferritin Alkaline Phosphatase Lactate Dehydrogenase C-Reactive Protein Total Protein Albumin Urine WBC (Auto) Urine Creatinine 11/15/20 11/15/20 11/15/20 06:18 06:18 06:18 WBC RBC 2.74 L Hgb 8.9 L Hct 26.1 L D MCV RDW 12.8 L Seg Neuts % (Manual) 81.0 H Lymphocytes % (Manual) Seg Neutrophils # Man 8.7 H Lymphocytes # (Manual) PT INR APTT D-Dimer VBG pH Sodium 149 H 149 H Potassium Chloride 116.2 H 117.4 H Carbon Dioxide 20 L D 20 L BUN 33 H 32 H Creatinine 1.6 H D 1.6 H Glucose 236 H 231 H POC Glucose Hemoglobin A1c Lactic Acid Calcium Phosphorus Ferritin Alkaline Phosphatase 184 H Lactate Dehydrogenase C-Reactive Protein Total Protein 5.8 L D Albumin 2.5 L Urine WBC (Auto) Urine Creatinine 11/15/20 11/15/20 11/15/20 06:24 10:15 10:18 WBC RBC Hgb Hct MCV RDW Seg Neuts % (Manual) Lymphocytes % (Manual) Seg Neutrophils # Man Lymphocytes # (Manual) PT INR APTT D-Dimer VBG pH Sodium 148 H Potassium Chloride 116.4 H Carbon Dioxide 19 L BUN 33 H Creatinine 1.8 H Glucose 133 H POC Glucose 223 H Hemoglobin A1c 10.8 H Lactic Acid Calcium Phosphorus Ferritin Alkaline Phosphatase Lactate Dehydrogenase C-Reactive Protein Total Protein Albumin Urine WBC (Auto) Urine Creatinine 11/15/20 11/15/20 11/15/20 12:20 17:44 18:31 WBC RBC Hgb Hct MCV RDW Seg Neuts % (Manual) Lymphocytes % (Manual) Seg Neutrophils # Man Lymphocytes # (Manual) PT INR APTT D-Dimer VBG pH Sodium 149 H Potassium Chloride 114.2 H Carbon Dioxide 15 L BUN 37 H Creatinine 2.0 H Glucose 400 H POC Glucose 266 H 350 H Hemoglobin A1c Lactic Acid Calcium Phosphorus Ferritin Alkaline Phosphatase Lactate Dehydrogenase C-Reactive Protein Total Protein Albumin Urine WBC (Auto) Urine Creatinine 11/15/20 11/16/20 11/16/20 21:40 07:00 07:56 WBC RBC Hgb Hct MCV RDW Seg Neuts % (Manual) Lymphocytes % (Manual) Seg Neutrophils # Man Lymphocytes # (Manual) PT INR APTT D-Dimer VBG pH Sodium 152 H Potassium Chloride 118.9 H Carbon Dioxide 17 L BUN 43 H Creatinine 2.7 H Glucose 204 H POC Glucose 195 H 222 H Hemoglobin A1c Lactic Acid Calcium 8.0 L Phosphorus 4.70 H D Ferritin Alkaline Phosphatase Lactate Dehydrogenase C-Reactive Protein Total Protein Albumin Urine WBC (Auto) Urine Creatinine 11/16/20 11/16/20 11/16/20 11:40 17:06 21:07 WBC RBC Hgb Hct MCV RDW Seg Neuts % (Manual) Lymphocytes % (Manual) Seg Neutrophils # Man Lymphocytes # (Manual) PT INR APTT D-Dimer VBG pH Sodium Potassium Chloride Carbon Dioxide BUN Creatinine Glucose POC Glucose 201 H 315 H 230 H Hemoglobin A1c Lactic Acid Calcium Phosphorus Ferritin Alkaline Phosphatase Lactate Dehydrogenase C-Reactive Protein Total Protein Albumin Urine WBC (Auto) Urine Creatinine 11/17/20 11/17/20 11/17/20 07:57 10:30 11:17 WBC RBC Hgb Hct MCV RDW Seg Neuts % (Manual) Lymphocytes % (Manual) Seg Neutrophils # Man Lymphocytes # (Manual) PT INR APTT D-Dimer VBG pH Sodium 153 H Potassium 3.4 L Chloride 122.1 H Carbon Dioxide 19 L BUN 54 H Creatinine 3.6 H Glucose 108 H POC Glucose 253 H 106 H Hemoglobin A1c Lactic Acid Calcium Phosphorus Ferritin Alkaline Phosphatase Lactate Dehydrogenase C-Reactive Protein Total Protein Albumin Urine WBC (Auto) Urine Creatinine 11/17/20 11/17/20 11/17/20 16:00 20:20 20:20 WBC RBC Hgb Hct MCV RDW Seg Neuts % (Manual) Lymphocytes % (Manual) Seg Neutrophils # Man Lymphocytes # (Manual) PT INR APTT D-Dimer VBG pH Sodium Potassium Chloride Carbon Dioxide BUN Creatinine Glucose POC Glucose 198 H Hemoglobin A1c Lactic Acid Calcium Phosphorus Ferritin Alkaline Phosphatase Lactate Dehydrogenase C-Reactive Protein Total Protein Albumin Urine WBC (Auto) 66.0 H Urine Creatinine 67.2 H 11/17/20 11/18/20 11/18/20 21:23 07:43 09:23 WBC 21.0 H RBC 2.97 L Hgb 9.1 L Hct 28.0 L MCV RDW Seg Neuts % (Manual) 89.0 H Lymphocytes % (Manual) 6.0 L Seg Neutrophils # Man 18.7 H Lymphocytes # (Manual) PT INR APTT D-Dimer VBG pH Sodium Potassium Chloride Carbon Dioxide BUN Creatinine Glucose POC Glucose 193 H 181 H Hemoglobin A1c Lactic Acid Calcium Phosphorus Ferritin Alkaline Phosphatase Lactate Dehydrogenase C-Reactive Protein Total Protein Albumin Urine WBC (Auto) Urine Creatinine 11/18/20 11/18/20 11/18/20 09:23 12:54 16:20 WBC RBC Hgb Hct MCV RDW Seg Neuts % (Manual) Lymphocytes % (Manual) Seg Neutrophils # Man Lymphocytes # (Manual) PT INR APTT D-Dimer VBG pH Sodium 152 H Potassium Chloride 119.1 H Carbon Dioxide 19 L BUN 62 H Creatinine 3.9 H Glucose 224 H POC Glucose 297 H 340 H Hemoglobin A1c Lactic Acid Calcium 8.1 L Phosphorus Ferritin Alkaline Phosphatase Lactate Dehydrogenase C-Reactive Protein Total Protein Albumin Urine WBC (Auto) Urine Creatinine 11/18/20 11/19/20 11/19/20 21:28 07:08 07:08 WBC 15.4 H RBC 2.85 L Hgb 8.7 L Hct 26.5 L MCV RDW Seg Neuts % (Manual) 94.0 H Lymphocytes % (Manual) 5.0 L Seg Neutrophils # Man 14.5 H Lymphocytes # (Manual) 0.8 L PT INR APTT D-Dimer VBG pH Sodium 150 H Potassium Chloride 119.5 H Carbon Dioxide 17 L BUN 69 H Creatinine 4.0 H Glucose 274 H POC Glucose 305 H Hemoglobin A1c Lactic Acid Calcium 8.3 L Phosphorus Ferritin Alkaline Phosphatase Lactate Dehydrogenase C-Reactive Protein Total Protein Albumin Urine WBC (Auto) Urine Creatinine 11/19/20 11/19/20 11/20/20 21:35 23:40 07:31 WBC RBC Hgb Hct MCV RDW Seg Neuts % (Manual) Lymphocytes % (Manual) Seg Neutrophils # Man Lymphocytes # (Manual) PT INR APTT D-Dimer VBG pH Sodium Potassium Chloride Carbon Dioxide BUN Creatinine Glucose POC Glucose 399 H 340 H 269 H Hemoglobin A1c Lactic Acid Calcium Phosphorus Ferritin Alkaline Phosphatase Lactate Dehydrogenase C-Reactive Protein Total Protein Albumin Urine WBC (Auto) Urine Creatinine 11/20/20 11/20/20 11/20/20 10:41 11:27 15:57 WBC RBC Hgb Hct MCV RDW Seg Neuts % (Manual) Lymphocytes % (Manual) Seg Neutrophils # Man Lymphocytes # (Manual) PT INR APTT D-Dimer VBG pH Sodium 147 H Potassium Chloride 115.6 H Carbon Dioxide 15 L BUN 75 H Creatinine 3.8 H Glucose 266 H POC Glucose 212 H 189 H Hemoglobin A1c Lactic Acid Calcium 8.2 L Phosphorus Ferritin Alkaline Phosphatase Lactate Dehydrogenase C-Reactive Protein Total Protein Albumin Urine WBC (Auto) Urine Creatinine Allied health notes reviewed: nursing
--- NOTE | 2020-11-20 17:33 | Event Note ---
Date: 11/20/20 I received a consult for PEG tube placement (neurogenic dysphagia, failed ST eval) for this placement. Prior to seeing the placement, I reviewed an old CT scan of the abdomen. Her liver is very large (steatosis?) and the stomach is very retrograde. There appears to be a 1-3cm window of potential space for tube placement in an atypical location (mid L side well below rib cage). I am switching this consult to General Surgery to evaluate, as I think the patient may require a laparoscopic placement of the PEG tube given her body habitus.
[2020-11-20] MEDS: cefTRIAXone/NS 2 GM/100 ML 2 GM/100 ML BAG IV SCH (20:11)
[2020-11-20] MEDS ORDERED: INSULIN GLARGINE 100 UNITS/ML SUB-Q SCH (22:00)
[2020-11-20] MEDS: PRAVASTATIN 40 MG TAB PO SCH (22:15)
[2020-11-21] MEDS: DEXTROSE 5% IN WATER 1,000 ML IV SCH (00:03)
[2020-11-21 05:45] LABS: Basophils % (Auto) 0.3 % (0.0-1.8); Eosinophils # (Auto) 0.1 K/mm3 (0.0-0.4); Eosinophils % (Auto) 0.7 % (0.0-4.3); Hematocrit 23.3 % (30.3-42.9); Hemoglobin 7.9 gm/dl (10.1-14.3); Lymphocytes # (Auto) 1.5 K/mm3 (1.2-5.4); Lymphocytes % (Auto) 10.4 % (13.4-35.0); Mean Corpuscular HGB Conc 34 % (30-34); Mean Corpuscular Volume 94 fl (79-97); Monocytes # (Auto) 0.5 K/mm3 (0.0-0.8); Monocytes % (Auto) 3.3 % (0.0-7.3); Platelet Count 185 K/mm3 (140-440); Red Blood Count 2.48 M/mm3 (3.65-5.03); Red Cell Distribution Width 13.8 % (13.2-15.2)
[2020-11-21] MEDS: metroNIDAZOLE/NS 500 MG/100 ML 500 MG/100 ML BAG IV SCH (05:49)
[2020-11-21 06:04] LABS: Calcium 7.7 mg/dL (8.4-10.2)
--- NOTE | 2020-11-21 09:26 | Progress Note ---
Assessment and Plan 1. Acute kidney injury: Vasomotor RACH superimposed on CKD in the setting of sepsis. ATN likely. Renal US and CT abdomen negative for hydro. Monitor renal function. Creatinine level is slightly better today. Renal prognosis is guarded. Avoid nephrotoxic agents. Meds dosage based on GFR. Monitor for [facility] [employer] needs. Patient may need dialysis if the renal function is not improving. D/w sister (5/5) regarding the possibility for dialysis and she wants to proceed with dialysis if needed. She was told the indications, benefits, risks and alternatives involved in hemodialysis. She voiced understanding and gave verbal consent. 2. FEN: Hypernatremia, hypotonic IV fluids. Hyperchloremic metabolic acidosis, continue IV D5W, monitor. Monitor lytes and volume status. 3. Sepsis: Likely 2/2 PNA. Covid test negative. Continue abx. Follow cultures. 4. Bilateral PNA: Abx. Covid test negative. 5. DKA: Improved. 6. Dysphagia: GI consulted for PEG placement. 7. Anemia: Monitor. 8. HTN: Monitor BP. 9. Metabolic encephalopathy, POA. - Subjective: Patient was seen and examined at the bedside. - General Appearance: General appearance: appears stated age, not in distress, appears chronically ill HEENT: ATNC, CAITY Neck: Trachea midline Respiratory: coarse breath sounds Cardiology: regular, S1S2, no murmur Gastrointestinal: normoactive bowel sounds, not tender, not distended Integumentary: no rash, warm and dry Neurologic: lethargic, opens eyes, not following any command, non-verbal Ext: no edema Subjective Date of service: 11/21/20 Principal diagnosis: Ac hypoxemic resp failure; Sepsis; DKA; RACH; Pneumonia; PUI COVID-19 Objective - Vital Signs Vital signs: Vital Signs - 12hr 11/20/20 11/21/20 11/21/20 22:22 00:48 03:26 Temperature 98.6 F 98.0 F Pulse Rate 74 76 Respiratory 18 16 Rate Blood Pressure 121/60 117/70 O2 Sat by Pulse 97 96 Oximetry 11/21/20 06:12 Temperature Pulse Rate 76 Respiratory Rate Blood Pressure O2 Sat by Pulse Oximetry - Lab 11/21/20 05:04 11/21/20 05:04 Most recent lab results Calcium 7.7 mg/dL (8.4-10.2) L 11/21/20 05:04 Phosphorus 3.90 mg/dL (2.5-4.5) 11/20/20 10:41 Magnesium 2.20 mg/dL (1.7-2.3) 11/14/20 18:22 Urine Creatinine 67.2 mg/dL (0.1-20.0) H 11/17/20 20:20 Urine Sodium 74 mmol/L 11/17/20 20:20 Medications & Allergies - Medications Allergies/Adverse Reactions: Allergies No Known Allergies Allergy (Verified 02/26/20 10:24) Home Medications: Home Medications Medication Instructions Recorded Confirmed Last Taken Type Citalopram [Celexa] 20 mg PO QDAY 01/25/20 11/20/20 Unknown History Pravastatin [Pravachol] 40 mg PO QHS 01/25/20 11/20/20 Unknown History Acetaminophen [Mapap] 650 mg PO BID PRN 02/26/20 11/20/20 Unknown History Ascorbic Acid [Vitamin C with Chetna 500 mg PO DAILY 02/26/20 11/20/20 Unknown History Hips] Glimepiride [Amaryl] 4 mg PO QAM 02/26/20 11/20/20 Unknown History Insulin Lispro [Humalog] 5 units SQ AC 02/26/20 11/20/20 Unknown History Multivit-Min/Ferrous Fumarate 15 mg PO DAILY 02/26/20 11/20/20 Unknown History [Multivitamin with Minerals Tab] Apixaban [Eliquis] 2.5 mg PO BID #30 tablet 03/01/20 11/20/20 Unknown Rx Active Medications: Generic Name Dose Route Start Last Admin Trade Name Lulu PRN Reason Stop Dose Admin Acetaminophen 650 mg 11/14/20 18:37 11/16/20 17:23 Acetaminophen 325 Mg Tab PO 650 mg Q6H PRN Administration Pain, Mild (1-3) Lipase/Protease/Amylase 1 each 11/20/20 13:02 Lipase 10,500/Protease 25,000/Amylase 43,750 (Units) Dr Braun FEEDTUBE PRN PRN For Clogged Feeding Tube Citalopram Hydrobromide 20 mg 11/16/20 10:00 11/20/20 10:54 Citalopram 20 Mg Tab PO 20 mg QDAY SHAHLA Administration Dextrose 50 ml 11/15/20 10:20 Dextrose 50% In Water (25gm) 50 Ml Syringe IV Q30MIN PRN Hypoglycemia Protocol Famotidine 20 mg 11/16/20 10:00 11/20/20 10:53 Famotidine 20 Mg Tab PO 20 mg QDAY SHAHLA Administration Heparin Sodium (Porcine) 5,000 unit 11/15/20 22:00 11/20/20 22:13 Heparin 5,000 Unit/1 Ml Vial SUB-Q 5,000 unit Q12HR SHAHLA Administration Ceftriaxone Sodium 2 gm in 100 mls @ 200 mls/hr 11/14/20 19:00 11/20/20 20:11 Rocephin/Ns 2 Gm/100 Ml IV 11/21/20 18:59 200 mls/hr Q24H SHAHLA Administration Protocol Dextrose 1,000 mls @ 50 mls/hr 11/16/20 11:00 11/21/20 00:03 D5w IV 50 mls/hr DIRECT SHAHLA Administration Metronidazole 500 mg in 100 mls @ 100 mls/hr 11/17/20 15:00 11/21/20 05:49 Flagyl 500 Mg/100 Ml IV 11/24/20 06:59 100 mls/hr Q8HR SHAHLA Administration Protocol Insulin Glargine 22 units 11/20/20 22:00 11/20/20 22:14 Insulin Glargine 100 Units/Ml SUB-Q Not Given QHS [facility] Insulin Human Lispro 0 unit 11/15/20 11:30 11/20/20 22:13 Insulin Lispro 100 Unit/Ml SUB-Q 2 unit ACHS SHAHLA Administration Protocol Oxycodone/Acetaminophen 1 tab 11/15/20 11:45 11/19/20 22:18 Oxycodone /Acetaminophen 5-325mg Tab PO 1 tab Q4H PRN Administration Pain, Moderate (4-6) Pravastatin Sodium 40 mg 11/15/20 22:00 11/20/20 22:15 Pravastatin 40 Mg Tab PO Not Given QHS SHAHLA Simple Syrup 15 ml 11/20/20 13:02 Simple Syrup 15 Ml FEEDTUBE PRN PRN Hypoglycemia Simple Syrup 30 ml 11/20/20 13:02 Simple Syrup 15 Ml FEEDTUBE PRN PRN Hypoglycemia Sodium Bicarbonate 325 mg 11/20/20 13:02 Sodium Bicarbonate 325 Mg Tab FEEDTUBE PRN PRN For Clogged Feeding Tube Sodium Chloride 10 ml 11/14/20 22:00 11/20/20 22:15 Sodium Chloride 0.9% 10 Ml Flush Syringe IV 10 ml BID SHAHLA Administration Sodium Chloride 10 ml 11/14/20 18:33 Sodium Chloride 0.9% 10 Ml Flush Syringe IV PRN PRN LINE FLUSH
[2020-11-21] MEDS: CITALOPRAM 20 MG TAB PO SCH (10:59)
[2020-11-21] MEDS: HEPARIN 5,000 UNIT/1 ML VIAL SUB-Q SCH ×2 (10:59→21:44)
[2020-11-21] MEDS: INSULIN LISPRO 100 UNIT/ML SUB-Q SCH ×3 (10:59→17:07)
[2020-11-21] MEDS: FAMOTIDINE 20 MG TAB PO SCH (10:59)
--- NOTE | 2020-11-21 12:28 | Progress Note ---
Assessment and Plan Assessment and plan: Assessment and Plan Assessment and plan: This is a 55-year-old female who is a resident of [facility] with vascular dementia, depression, developmental delay, debility, diabetes mellitus, hyperlipidemia, recent COVID 19 infection, chronic kidney disease and recurrent DKA who presents the emergency department on 11/14 with reported confusion and ill-appearing over the past day and hypoglycemia. Evaluation in the emergency department revealed sepsis with tachycardia, febrile to 102.8, tachypnea, lactic acidosis and RACH suspected secondary to urinary tract infection/?covid 19 pna, diabetic ketoacidosis, metabolic acidosis, toxic metabolic encephalopathy, acute kidney injury and hypernatremia. Patient was in sepsis, DKA, follow DKA pathway on insulin drip in ICU, stabilized and transferred to the floor COVID-19 positive, COVID-19 negative, ID following Assessment ; Dysphagia; failed swallow eval For PEG placement, GI consulted sepsis Bilateral pneumonia Urinary tract infection Gingivitis and periodontitis Covid 19 negative DKA-resolved: Uncontrolled diabetes mellitus RACH /worsening renal function nephrology considering hemodialysis Toxic metabolic encephalopathy/multifactorial Hypernaturemia, improving Lactic acidosis, resolved Hypophosphatemia Hypokalemia, resolved Elevated ddimer/venous Doppler negative for DVT Plan; GI consulted for PEG placement, Continue current antibiotics Rocephin, and Flagyl Zithromax discontinued, As recommended by ID Follow cultures Patient needs outpatient dentists evaluation upon discharge Insulin glargine dose increased,Closely monitor blood sugars Follow nephrology evaluation recommendations planning dialysis DVT prophylaxis Heparin renal dose Plan of care reviewed with patient and 11/15: Patient has been transitioned to sliding scale insulin and started on a pured diet. Per SNF patient has completed antibiotic therapy for her mouth. Her leukocytosis, hypernatremia, hyperchloremia, metabolic acidosis have improved. She has worsening kidney function. ID consulted today. 11/16: Continue IV antibiotics of ceftriaxone and azithromycin per ID recommendati ons. Patient has been transitioned from IV insulin drip to long-acting insulin of Lantus 14 units at bedtime. Patient does have acute kidney injury likely secondary to sepsis/ATN +/- vasomotor nephropathy. Creatinine is worse today at 2.7. Consult nephrology for further evaluation. Check CT scan of the abdomen pelvis. 11/17: Continue antibiotics per ID recommendations. Patient appears to have pneumonia and UTI. Blood and urine cultures remain negative x48 hours. Follow- up COVID-[address] scan shows a nonobstructing calculus in the right kidney. Follow-up BMP to assess renal function 11/18: Continue ceftriaxone, itraconazole and azithromycin for sepsis secondary to pneumonia/UTI. Procalcitonin elevated at 30.66. Chest x-ray revealed patchy bilateral infiltrates. Etiology aspiration pneumonia versus COVID-19. COVID-19 PCR pending. Blood and urine cultures remain negative. Nephrology following for acute kidney injury. Creatinine worsened. Follow-up BMP this morning. CT scan negative for obstruction. 11/19/2020; continue current antibiotics per ID COVID-19 test negative, patient is requiring 2 L of nasal cannula oxygen Closely monitor and adjust management as needed Consults and recommendations noted and appreciated 11/20/2020; Dysphagia, failed swallow eval, GI consulted for PEG placement GI recommend laparoscopic /surgical placement of PEG Surgeon Dr. Black consulted, follow clinically Disposition; follow clinically, discharge to SNF when medically stable Follow GI/surgery recommendations for PEG 11/21/20 Patient is going for possible PICC placement today. Patient renal function is improving BUN is 71 and creatinine 3.6. We will continue to monitor the kidney function. Recheck BMP in the morning. Continue Rocephin and metronidazole antibiotic as per ID Discharge plan to SNF when medically stable Frame Table Operator recommendation are appreciated Recheck CBC BMP in the morning History Interval history: Patient is seen and examined Patient chart and medications reviewed Patient is going for PEG placement today Patient is noncommunicative and cachectic Malnourished Vital signs are noted Hospitalist Physical - Constitutional Vitals: Temp Pulse Resp BP Pulse Ox 98.0 F 76 16 117/70 96 11/21/20 03:26 11/21/20 06:12 11/21/20 03:26 11/21/20 03:26 11/21/20 03:26 General appearance: Present: no acute distress, cachectic, disheveled HEART Score - HEART Score Troponin: Troponin T < 0.010 ng/mL (0.00-0.029) 11/14/20 16:23 Results - Labs CBC & Chem 7: 11/21/20 05:04 11/21/20 05:04 Labs: Laboratory Last Values WBC 14.2 K/mm3 (4.5-11.0) H 11/21/20 05:04 RBC 2.48 M/mm3 (3.65-5.03) L 11/21/20 05:04 Hgb 7.9 gm/dl (10.1-14.3) L 11/21/20 05:04 Hct 23.3 % (30.3-42.9) L 11/21/20 05:04 MCV 94 fl (79-97) 11/21/20 05:04 MCH 32 pg (28-32) 11/21/20 05:04 MCHC 34 % (30-34) 11/21/20 05:04 RDW 13.8 % (13.2-15.2) 11/21/20 05:04 Plt Count 185 K/mm3 (140-440) 11/21/20 05:04 Lymph % (Auto) 10.4 % (13.4-35.0) L 11/21/20 05:04 [place] % (Auto) 3.3 % (0.0-7.3) 11/21/20 05:04 Eos % (Auto) 0.7 % (0.0-4.3) 11/21/20 05:04 Baso % (Auto) 0.3 % (0.0-1.8) 11/21/20 05:04 Lymph # (Auto) 1.5 K/mm3 (1.2-5.4) 11/21/20 05:04 [place] # (Auto) 0.5 K/mm3 (0.0-0.8) 11/21/20 05:04 Eos # (Auto) 0.1 K/mm3 (0.0-0.4) 11/21/20 05:04 Baso # (Auto) 0.0 K/mm3 (0.0-0.1) 11/21/20 05:04 Add Manual Diff Complete 11/19/20 07:08 Total Counted 100 11/19/20 07:08 Seg Neutrophils % 85.3 % (40.0-70.0) H 11/21/20 05:04 Seg Neuts % (Manual) 94.0 % (40.0-70.0) H 11/19/20 07:08 Band Neutrophils % 1.0 % 11/18/20 09:23 Lymphocytes % (Manual) 5.0 % (13.4-35.0) L 11/19/20 07:08 Monocytes % (Manual) 1.0 % (0.0-7.3) 11/18/20 09:23 Eosinophils % (Manual) 1.0 % (0.0-4.3) 11/19/20 07:08 Metamyelocytes % 1.0 % 11/18/20 09:23 Nucleated RBC % Not Reportable 11/19/20 07:08 Seg Neutrophils # 12.1 K/mm3 (1.8-7.7) H 11/21/20 05:04 Seg Neutrophils # Man 14.5 K/mm3 (1.8-7.7) H 11/19/20 07:08 Band Neutrophils # 0.0 K/mm3 11/19/20 07:08 Lymphocytes # (Manual) 0.8 K/mm3 (1.2-5.4) L 11/19/20 07:08 Abs React Lymphs (Man) 0.0 K/mm3 11/19/20 07:08 Monocytes # (Manual) 0.0 K/mm3 (0.0-0.8) 11/19/20 07:08 Eosinophils # (Manual) 0.2 K/mm3 (0.0-0.4) 11/19/20 07:08 Basophils # (Manual) 0.0 K/mm3 (0.0-0.1) 11/19/20 07:08 Metamyelocytes # 0.0 K/mm3 11/19/20 07:08 Myelocytes # 0.0 K/mm3 11/19/20 07:08 Promyelocytes # 0.0 K/mm3 11/19/20 07:08 Blast Cells # 0.0 K/mm3 11/19/20 07:08 WBC Morphology Not Reportable 11/19/20 07:08 Hypersegmented Neuts Not Reportable 11/19/20 07:08 Hyposegmented Neuts Not Reportable 11/19/20 07:08 Hypogranular Neuts Not Reportable 11/19/20 07:08 Smudge Cells Not Reportable 11/19/20 07:08 Toxic Granulation Not Reportable 11/19/20 07:08 Toxic Vacuolation Not Reportable 11/19/20 07:08 Dohle Bodies Not Reportable 11/19/20 07:08 Pelger-Huet Anomaly Not Reportable 11/19/20 07:08 Jamia Rods Not Reportable 11/19/20 07:08 Platelet Estimate Consistent w auto 11/19/20 07:08 Clumped Platelets Not Reportable 11/19/20 07:08 Plt Clumps, EDTA Not Reportable 11/19/20 07:08 Large Platelets Not Reportable 11/19/20 07:08 Giant Platelets Not Reportable 11/19/20 07:08 Platelet Satelliting Not Reportable 11/19/20 07:08 Plt Morphology Comment Not Reportable 11/19/20 07:08 RBC Morphology Normal 11/19/20 07:08 Dimorphic RBCs Not Reportable 11/19/20 07:08 Polychromasia Not Reportable 11/19/20 07:08 Hypochromasia Not Reportable 11/19/20 07:08 Poikilocytosis Not Reportable 11/19/20 07:08 Anisocytosis Not Reportable 11/19/20 07:08 Microcytosis Not Reportable 11/19/20 07:08 Macrocytosis Not Reportable 11/19/20 07:08 Spherocytes Not Reportable 11/19/20 07:08 Pappenheimer Bodies Not Reportable 11/19/20 07:08 Sickle Cells Not Reportable 11/19/20 07:08 Target Cells Not Reportable 11/19/20 07:08 Tear Drop Cells Not Reportable 11/19/20 07:08 Ovalocytes Not Reportable 11/19/20 07:08 Helmet Cells Not Reportable 11/19/20 07:08 [place] Bodies Not Reportable 11/19/20 07:08 [place] Rings Not Reportable 11/19/20 07:08 [place] Cells Not Reportable 11/19/20 07:08 Bite Cells Not Reportable 11/19/20 07:08 Crenated Cell Not Reportable 11/19/20 07:08 Elliptocytes Not Reportable 11/19/20 07:08 Acanthocytes (Spur) Not Reportable 11/19/20 07:08 Rouleaux Not Reportable 11/19/20 07:08 Hemoglobin C Crystals Not Reportable 11/19/20 07:08 Schistocytes Not Reportable 11/19/20 07:08 Malaria parasites Not Reportable 11/19/20 07:08 Felice Bodies Not Reportable 11/19/20 07:08 Hem Pathologist Commnt No 11/19/20 07:08 PT 15.3 Sec. (12.2-14.9) H 11/14/20 16:23 INR 1.21 (0.87-1.13) H 11/14/20 16:23 APTT 23.1 Sec. (24.2-36.6) L 11/14/20 16:23 D-Dimer 2876.26 ng/mlDDU (0-234) H 11/14/20 18:30 VBG pH 7.216 (7.320-7.420) L 11/14/20 16:23 Sodium 145 mmol/L (137-145) 11/21/20 05:04 Potassium 3.9 mmol/L (3.6-5.0) 11/21/20 05:04 Chloride 115.1 mmol/L (98-107) H 11/21/20 05:04 Carbon Dioxide 17 mmol/L (22-30) L 11/21/20 05:04 Anion Gap 17 mmol/L 11/21/20 05:04 BUN 71 mg/dL (7-17) H 11/21/20 05:04 Creatinine 3.6 mg/dL (0.6-1.2) H 11/21/20 05:04 Estimated GFR 13 ml/min 11/21/20 05:04 BUN/Creatinine Ratio 20 % 11/21/20 05:04 Glucose 249 mg/dL (65-100) H 11/21/20 05:04 POC Glucose 285 mg/dL (70-105) H 11/21/20 11:42 Hemoglobin A1c 10.8 % (4-6) H 11/15/20 10:15 Ketones Quantitative Moderate (Negative) 11/14/20 16:23 Osmolality 348 Mosm/kg 11/20/20 10:41 Lactic Acid 1.60 mmol/L (0.7-2.0) 11/15/20 06:18 Calcium 7.7 mg/dL (8.4-10.2) L 11/21/20 05:04 Phosphorus 3.90 mg/dL (2.5-4.5) 11/20/20 10:41 Magnesium 2.20 mg/dL (1.7-2.3) 11/14/20 18:22 Ferritin 623.7 ng/mL (10.0-200.0) H 11/14/20 18:30 Total Bilirubin < 0.20 mg/dL (0.1-1.2) 11/15/20 06:18 Direct Bilirubin < 0.2 mg/dL (0-0.2) 11/14/20 16:23 Indirect Bilirubin 0.0 mg/dL 11/14/20 16:23 AST 27 units/L (5-40) 11/15/20 06:18 ALT 20 units/L (7-56) 11/15/20 06:18 Alkaline Phosphatase 184 units/L (35-129) H 11/15/20 06:18 Lactate Dehydrogenase 247 units/L (91-180) H 11/14/20 18:30 Total Creatine Kinase 44 units/L (30-135) 11/20/20 10:41 Troponin T < 0.010 ng/mL (0.00-0.029) 11/14/20 16:23 C-Reactive Protein 52.00 mg/dL (0.00-1.30) H 11/14/20 18:30 Total Protein 5.8 g/dL (6.3-8.2) L D 11/15/20 06:18 Albumin 2.5 g/dL (3.9-5) L 11/15/20 06:18 Albumin/Globulin Ratio 0.8 % 11/15/20 06:18 Procalcitonin 30.66 ng/mL (<0.15) 11/14/20 18:30 Urine Color Yellow (Yellow) 11/17/20 20:20 Urine Turbidity Cloudy (Clear) 11/17/20 20:20 Urine pH 5.0 (5.0-7.0) 11/17/20 20:20 Ur Specific [place] 1.015 (1.003-1.030) 11/17/20 20:20 Urine Protein 100 mg/dl mg/dL (Negative) 11/17/20 20:20 Urine Glucose (UA) 150 mg/dL (Negative) 11/17/20 20:20 Urine Ketones Neg mg/dL (Negative) 11/17/20 20:20 Urine Blood Mod (Negative) 11/17/20 20:20 Urine Nitrite Neg (Negative) 11/17/20 20:20 Urine Bilirubin Neg (Negative) 11/17/20 20:20 Urine Urobilinogen < 2.0 mg/dL (<2.0) 11/17/20 20:20 Ur Leukocyte Esterase Mod (Negative) 11/17/20 20:20 Urine WBC (Auto) 66.0 /HPF (0.0-6.0) H 11/17/20 20:20 Urine RBC (Auto) 59.0 /HPF (0.0-6.0) 11/17/20 20:20 U Epithel Cells (Auto) 1.0 /HPF (0-13.0) 11/17/20 20:20 Urine Bacteria (Auto) 1+ /HPF (Negative) 11/17/20 20:20 Urine Yeast (Budding) 3+ /HPF 11/17/20 20:20 Urine Creatinine 67.2 mg/dL (0.1-20.0) H 11/17/20 20:20 Urine Sodium 74 mmol/L 11/17/20 20:20 Coronavirus (PCR) Negative (Negative) 11/17/20 11:02 Verma/IV: Voiding Method Incontinent Active Medications - Current Medications Current Medications: Generic Name Dose Route Start Last Admin Trade Name Freq PRN Reason Stop Dose Admin Acetaminophen 650 mg 11/14/20 18:37 11/16/20 17:23 Acetaminophen 325 Mg Tab PO 650 mg Q6H PRN Administration Pain, Mild (1-3) Lipase/Protease/Amylase 1 each 11/20/20 13:02 Lipase 10,500/Protease 25,000/Amylase 43,750 (Units) Dr Braun FEEDTUBE PRN PRN For Clogged Feeding Tube Citalopram Hydrobromide 20 mg 11/16/20 10:00 11/21/20 10:59 Citalopram 20 Mg Tab PO Not Given QDAY [facility] Dextrose 50 ml 11/15/20 10:20 Dextrose 50% In Water (25gm) 50 Ml Syringe IV Q30MIN PRN Hypoglycemia Protocol Famotidine 20 mg 11/16/20 10:00 11/21/20 10:59 Famotidine 20 Mg Tab PO Not Given QDAY [facility] Heparin Sodium (Porcine) 5,000 unit 11/15/20 22:00 11/21/20 10:59 Heparin 5,000 Unit/1 Ml Vial SUB-Q Not Given Q12HR [facility] Ceftriaxone Sodium 2 gm in 100 mls @ 200 mls/hr 11/14/20 19:00 11/20/20 20:11 Rocephin/Ns 2 Gm/100 Ml IV 11/21/20 18:59 200 mls/hr Q24H SHAHLA Administration Protocol Dextrose 1,000 mls @ 50 mls/hr 11/16/20 11:00 11/21/20 00:03 D5w IV 50 mls/hr DIRECT SHAHLA Administration Metronidazole 500 mg in 100 mls @ 100 mls/hr 11/17/20 15:00 11/21/20 05:49 Flagyl 500 Mg/100 Ml IV 11/24/20 06:59 100 mls/hr Q8HR SHAHLA Administration Protocol Insulin Glargine 22 units 11/20/20 22:00 11/20/20 22:14 Insulin Glargine 100 Units/Ml SUB-Q Not Given QHS [facility] Insulin Human Lispro 0 unit 11/15/20 11:30 11/21/20 10:59 Insulin Lispro 100 Unit/Ml SUB-Q 2 unit ACHS SHAHLA Administration Protocol Oxycodone/Acetaminophen 1 tab 11/15/20 11:45 11/19/20 22:18 Oxycodone /Acetaminophen 5-325mg Tab PO 1 tab Q4H PRN Administration Pain, Moderate (4-6) Pravastatin Sodium 40 mg 11/15/20 22:00 11/20/20 22:15 Pravastatin 40 Mg Tab PO Not Given QHS SHAHLA Simple Syrup 15 ml 11/20/20 13:02 Simple Syrup 15 Ml FEEDTUBE PRN PRN Hypoglycemia Simple Syrup 30 ml 11/20/20 13:02 Simple Syrup 15 Ml FEEDTUBE PRN PRN Hypoglycemia Sodium Bicarbonate 325 mg 11/20/20 13:02 Sodium Bicarbonate 325 Mg Tab FEEDTUBE PRN PRN For Clogged Feeding Tube Sodium Chloride 10 ml 11/14/20 22:00 11/21/20 11:00 Sodium Chloride 0.9% 10 Ml Flush Syringe IV 10 ml BID SHAHLA Administration Sodium Chloride 10 ml 11/14/20 18:33 Sodium Chloride 0.9% 10 Ml Flush Syringe IV PRN PRN LINE FLUSH Nutrition/Malnutrition Assess - Dietary Evaluation Nutrition/Malnutrition Findings: Nutrition Notes Start: 11/15/20 10:28 Freq: Status: Active Protocol: Document 11/20/20 09:12 AT (Rec: 11/20/20 09:20 AT [id number]) Co-Sign 11/20/20 09:12 MK Nutrition Notes Need for Assessment generated from: MD Order Initial or Follow up Reassessment Current Diagnosis Acute Kidney Injury,Diabetes, Sepsis,Hyperlipidemia Other Pertinent Diagnosis UTI, bilat pneu, vascular dementia, depression, r/o COVID-19 Current Diet TF Labs/Tests Na 147 BUN 75 Cr 3.8 BG 266 Ca 8.2 Pertinent Medications Reviewed Height 5 ft 4 in Weight 46.8 kg Julian Body Weight (kg) 54.54 BMI 17.6 Weight Status Underweight Subjective/Other Information Consult for TF. Pt has a severe case of gingivitis/ periodontitis, which makes her unable to consume PO. Burn Absent Trauma Absent Current % PO Negligible Minimum of two criteria No Energy Intake (severe) < or equal to 50% Estimated Energy Requirement > or equal to 5 days #1 Nutrition Diagnosis Inadequate oral intake As Evidenced by Signs and Symptoms pt requiring TF Diagnosis Progress(for reassessment Continues documentation) Is patient on ventilator? No Is Patient Ambulatory and/or Out of Bed No REE-([facility]-confined to bed) 1262.316 Kcal/Kg value to use for calculation 36 Approximate Energy Requirements Using 1685 kcal/Kg Calculation Used for Recommendations Kcal/kg Additional Notes PRO needs: 56-70g (1.2-1.5g/kg ) Fluids: 1 mL/kcal or per MD Nutrition Intervention Change Diet Order: Initiate TF Nutrition Support: Glucerna 1.2 at 58 mL/hr. Flush with 200 mL q4h for hypernatremia. Flush with 150 mL q4h once hypernatremia resolves. Kcal 1,670 Protein (gm) 84 Fluid (mL) 1,120 Goal #1 Initiate TF Goal #2 Weight maintenance/weight gain Anticipated Discharge Needs: TF Glucerna 1.2 at 58 mL/hr. Follow-Up By: 11/22/20 Additional Comments F/U for TF start/tolerance - Malnutrition Assessment Minimum of two criteria: Yes - Attestation Statement I have reviewed and agreed w/ Malnutrition eval & tx plan: Yes
--- NOTE | 2020-11-21 12:44 | Consultation ---
History of Present Illness Consult date: 11/21/20 - History of present illness History of present illness: 55-year-old female who is a resident of [facility] with a past medical history of vascular dementia, depression, developmental delay, diabetes who presented to [facility] ER on 11/14/2020 with confusion, hypoglycemia. The patient is nonverbal and all of the history is obtained from the chart. It is also noted that the patient had a recent COVID-19 infection. Work-up in the ER demonstrated tachycardia and fever, lactic acidosis and acute kidney injury. The patient has been evaluated by speech therapy. Patient was found to be at significant risk for aspiration due to holding food bolus in mouth and not initiating swallow reflex. It was therefore recommended that she be kept n.p.o. and a PEG tube be placed. GI was consulted and after review of the patient's CT scan, it was felt that she is a poor candidate for traditional PEG placement. Surgery consulted recommended for surgical placement of PEG tube. Past History Past Medical History: diabetes, hyperlipidemia, other (Dementia) Past Surgical History: No surgical history, Other (Reviewed) Social history: single. denies: smoking, alcohol abuse, prescription drug abuse Family history: diabetes, hypertension Medications and Allergies Allergies Allergy/AdvReac Type Severity Reaction Status Date / Time No Known Allergies Allergy Verified 02/26/20 10:24 Home Medications Medication Instructions Recorded Confirmed Last Taken Type Citalopram [Celexa] 20 mg PO QDAY 01/25/20 11/20/20 Unknown History Pravastatin [Pravachol] 40 mg PO QHS 01/25/20 11/20/20 Unknown History Acetaminophen [Mapap] 650 mg PO BID PRN 02/26/20 11/20/20 Unknown History Ascorbic Acid [Vitamin C with Chetna 500 mg PO DAILY 02/26/20 11/20/20 Unknown History Hips] Glimepiride [Amaryl] 4 mg PO QAM 02/26/20 11/20/20 Unknown History Insulin Lispro [Humalog] 5 units SQ AC 02/26/20 11/20/20 Unknown History Multivit-Min/Ferrous Fumarate 15 mg PO DAILY 02/26/20 11/20/20 Unknown History [Multivitamin with Minerals Tab] Apixaban [Eliquis] 2.5 mg PO BID #30 tablet 08/14/20 05/05/21 Unknown Rx Active Meds: Active Medications Acetaminophen (Acetaminophen 325 Mg Tab) 650 mg PO Q6H PRN PRN Reason: Pain, Mild (1-3) Last Admin: 11/16/20 17:23 Dose: 650 mg Documented by: Lipase/Protease/Amylase (Lipase 10,500/Protease 25,000/Amylase 43,750 (Units) Dr Braun) 1 each FEEDTUBE PRN PRN PRN Reason: For Clogged Feeding Tube Citalopram Hydrobromide (Citalopram 20 Mg Tab) 20 mg PO QDAY [facility] Last Admin: 11/21/20 10:59 Dose: Not Given Documented by: Dextrose (Dextrose 50% In Water (25gm) 50 Ml Syringe) 50 ml IV Q30MIN PRN; Protocol PRN Reason: Hypoglycemia Famotidine (Famotidine 20 Mg Tab) 20 mg PO QDAY [facility] Last Admin: 11/21/20 10:59 Dose: Not Given Documented by: Heparin Sodium (Porcine) (Heparin 5,000 Unit/1 Ml Vial) 5,000 unit SUB-Q Q12HR [facility] Last Admin: 11/21/20 10:59 Dose: Not Given Documented by: Ceftriaxone Sodium (Rocephin/Ns 2 Gm/100 Ml) 2 gm in 100 mls @ 200 mls/hr IV Q2 4H SHAHLA; Protocol Stop: 11/21/20 18:59 Last Admin: 11/20/20 20:11 Dose: 200 mls/hr Documented by: Dextrose (D5w) 1,000 mls @ 50 mls/hr IV DIRECT SHAHLA Last Admin: 11/21/20 00:03 Dose: 50 mls/hr Documented by: Metronidazole (Flagyl 500 Mg/100 Ml) 500 mg in 100 mls @ 100 mls/hr IV Q8HR [facility]; Protocol Stop: 11/24/20 06:59 Last Admin: 11/21/20 05:49 Dose: 100 mls/hr Documented by: Insulin Glargine (Insulin Glargine 100 Units/Ml) 22 units SUB-Q QHS [facility] Last Admin: 11/20/20 22:14 Dose: Not Given Documented by: Insulin Human Lispro (Insulin Lispro 100 Unit/Ml) 0 unit SUB-Q ACHS [facility]; Protocol Last Admin: 11/21/20 10:59 Dose: 2 unit Documented by: Oxycodone/Acetaminophen (Oxycodone /Acetaminophen 5-325mg Tab) 1 tab PO Q4H PRN PRN Reason: Pain, Moderate (4-6) Last Admin: 11/19/20 22:18 Dose: 1 tab Documented by: Pravastatin Sodium (Pravastatin 40 Mg Tab) 40 mg PO QHS [facility] Last Admin: 11/20/20 22:15 Dose: Not Given Documented by: Simple Syrup (Simple Syrup 15 Ml) 15 ml FEEDTUBE PRN PRN PRN Reason: Hypoglycemia Simple Syrup (Simple Syrup 15 Ml) 30 ml FEEDTUBE PRN PRN PRN Reason: Hypoglycemia Sodium Bicarbonate (Sodium Bicarbonate 325 Mg Tab) 325 mg FEEDTUBE PRN PRN PRN Reason: For Clogged Feeding Tube Sodium Chloride (Sodium Chloride 0.9% 10 Ml Flush Syringe) 10 ml IV BID [facility] Last Admin: 11/21/20 11:00 Dose: 10 ml Documented by: Sodium Chloride (Sodium Chloride 0.9% 10 Ml Flush Syringe) 10 ml IV PRN PRN PRN Reason: LINE FLUSH Review of Systems ROS unobtainable: due to mental status Exam Vital Signs Pulse Resp Pulse Ox 162 H 30 H 95 11/14/20 15:40 11/14/20 15:40 11/14/20 15:40 Narrative exam: Gen.: Arousable, does not respond to commands. Opens eyes to name. Ill appearing, cachectic. No apparent distress ENT: Trachea midline. No lymphadenopathy. No scleral icterus or conjunctival pallor. Poor dentition CV: S1, S2 present Respiratory: No audible wheezes Abdomen: Soft, nondistended, nontender. No rebound, rigidity, guarding Extremities: No clubbing, cyanosis, edema Results - Labs 11/21/20 05:04 11/21/20 05:04 Abnormal lab results 11/20/20 11/20/20 11/21/20 Range/Units 15:57 20:26 05:04 WBC (4.5-11.0) K/mm3 RBC (3.65-5.03) M/mm3 Hgb (10.1-14.3) gm/dl Hct (30.3-42.9) % Lymph % (Auto) (13.4-35.0) % Seg Neutrophils % (40.0-70.0) % Seg Neutrophils # (1.8-7.7) K/mm3 Chloride 115.1 H (98-107) mmol/L Carbon Dioxide 17 L (22-30) mmol/L BUN 71 H (7-17) mg/dL Creatinine 3.6 H (0.6-1.2) mg/dL Glucose 249 H (65-100) mg/dL POC Glucose 189 H 200 H (70-105) mg/dL Calcium 7.7 L (8.4-10.2) mg/dL 11/21/20 11/21/20 11/21/20 Range/Units 05:04 07:49 11:42 WBC 14.2 H (4.5-11.0) K/mm3 RBC 2.48 L (3.65-5.03) M/mm3 Hgb 7.9 L (10.1-14.3) gm/dl Hct 23.3 L (30.3-42.9) % Lymph % (Auto) 10.4 L (13.4-35.0) % Seg Neutrophils % 85.3 H (40.0-70.0) % Seg Neutrophils # 12.1 H (1.8-7.7) K/mm3 Chloride (98-107) mmol/L Carbon Dioxide (22-30) mmol/L BUN (7-17) mg/dL Creatinine (0.6-1.2) mg/dL Glucose (65-100) mg/dL POC Glucose 241 H 285 H (70-105) mg/dL Calcium (8.4-10.2) mg/dL Diabetes panel 11/21/20 Range/Units 05:04 Sodium 145 (137-145) mmol/L Potassium 3.9 (3.6-5.0) mmol/L Chloride 115.1 H (98-107) mmol/L Carbon Dioxide 17 L (22-30) mmol/L BUN 71 H (7-17) mg/dL Creatinine 3.6 H (0.6-1.2) mg/dL Glucose 249 H (65-100) mg/dL Calcium 7.7 L (8.4-10.2) mg/dL Calcium panel 11/21/20 Range/Units 05:04 Calcium 7.7 L (8.4-10.2) mg/dL Pituitary panel 11/21/20 Range/Units 05:04 Sodium 145 (137-145) mmol/L Potassium 3.9 (3.6-5.0) mmol/L Chloride 115.1 H (98-107) mmol/L Carbon Dioxide 17 L (22-30) mmol/L BUN 71 H (7-17) mg/dL Creatinine 3.6 H (0.6-1.2) mg/dL Glucose 249 H (65-100) mg/dL Calcium 7.7 L (8.4-10.2) mg/dL Adrenal panel 11/21/20 Range/Units 05:04 Sodium 145 (137-145) mmol/L Potassium 3.9 (3.6-5.0) mmol/L Chloride 115.1 H (98-107) mmol/L Carbon Dioxide 17 L (22-30) mmol/L BUN 71 H (7-17) mg/dL Creatinine 3.6 H (0.6-1.2) mg/dL Glucose 249 H (65-100) mg/dL Calcium 7.7 L (8.4-10.2) mg/dL - Imaging CT scan - abdomen: report reviewed, image reviewed CT scan - pelvis: report reviewed, image reviewed Assessment and Plan 55 yo F with dysphagia Pt stable. Not a good candidate for PEG due to abdominal anatomy Plan: 1. Will schedule for OR for lap assisted PEG, possible open G tube placement tomorrow 11/22. Will call family to obtain consent 2. NPO 3. IVF 4. Continue care per 1' service and consultants Thank you, please call with questions
--- NOTE | 2020-11-21 12:45 | Progress Note ---
Assessment and Plan Cultures: 11/14/2020 blood culture: no growth 11/14/2020 urine culture: No growth 11/17/2020 urine culture: mixed dillon COVID-19 PCR: Negative A/P: 55-year-old female with diabetes, hyperlipidemia, vascular dementia was brought in from the senior living due to confusion. She had COVID-19 in February 2020, now with DKA and: #Sepsis: Secondary to pneumonia v/s UTI. Chest x-ray with patchy bilateral infiltrates. Also rule out COVID-19. Procalcitonin was 30.66. Abdominal CT with nonobstructive renal calculus. s/p abx. #UTI: UA with pyuria. Admitted with DKA. S/P abx #Diabetic ketoacidosis: required insulin drip while in ICU. #Acute encephalopathy: Likely metabolic, sodium very high on admission. Also, reportedly with underlying vascular dementia. CT head with severe cerebellar atrophy. #RACH: Renally dose antibiotics. #Severe gingivitis/periodontal disease: CT sinuses showed no abnormality. CT head showed no acute intracranial abnormality, showed severe cerebellar atrophy. Recs: -completed abx -will need dental eval post discharge -overall, poor prognosis Krystina Townsend MD, FACP [facility], [place], [facility] ([facility] O: [phone] F: [phone] Subjective Date of service: 11/21/20 Principal diagnosis: Ac hypoxemic resp failure; Sepsis; DKA; RACH; Pneumonia; PUI COVID-19 Interval history: No fever. Non verbal. Calm, lying in bed. Objective - Exam Narrative Exam: Physical Exam: Constitutional: Awake, non verbal, non communicative Head, Ears, Nose: Normocephalic, atraumatic. External ears, nose normal Eyes: Conjunctivae/corneas clear. No icterus. No ptosis. Neck: Supple, no meningeal signs Oral: severe dental and periodontal disease Cardiovascular: S1, S2 normal. Respiratory: Good air entry, clear to auscultation bilaterally GI: Soft, non-tender; bowel sounds normal. No peritoneal signs Musculoskeletal: No pedal edema, no cyanosis. Skin: No rash or abscess Hem/Lymphatic: No palpable cervical or supraclavicular nodes. No lymphangitis Psych: Awake, no agitation Neurological: Awake, doesn't communicate - Constitutional Vitals: Vital Signs Temp Pulse Resp BP Pulse Ox 98.0 F 76 16 117/70 96 11/21/20 03:26 11/21/20 06:12 11/21/20 03:26 11/21/20 03:26 11/21/20 03:26 Temperature -Last 24 Hours Temperature 98.0 F Temperature 98.6 F Temperature 99.2 F - Labs CBC & Chem 7: 11/21/20 05:04 11/21/20 05:04 Labs: Abnormal lab results 11/20/20 11/20/20 11/21/20 Range/Units 15:57 20:26 05:04 WBC (4.5-11.0) K/mm3 RBC (3.65-5.03) M/mm3 Hgb (10.1-14.3) gm/dl Hct (30.3-42.9) % Lymph % (Auto) (13.4-35.0) % Seg Neutrophils % (40.0-70.0) % Seg Neutrophils # (1.8-7.7) K/mm3 Chloride 115.1 H (98-107) mmol/L Carbon Dioxide 17 L (22-30) mmol/L BUN 71 H (7-17) mg/dL Creatinine 3.6 H (0.6-1.2) mg/dL Glucose 249 H (65-100) mg/dL POC Glucose 189 H 200 H (70-105) mg/dL Calcium 7.7 L (8.4-10.2) mg/dL 11/21/20 11/21/20 11/21/20 Range/Units 05:04 07:49 11:42 WBC 14.2 H (4.5-11.0) K/mm3 RBC 2.48 L (3.65-5.03) M/mm3 Hgb 7.9 L (10.1-14.3) gm/dl Hct 23.3 L (30.3-42.9) % Lymph % (Auto) 10.4 L (13.4-35.0) % Seg Neutrophils % 85.3 H (40.0-70.0) % Seg Neutrophils # 12.1 H (1.8-7.7) K/mm3 Chloride (98-107) mmol/L Carbon Dioxide (22-30) mmol/L BUN (7-17) mg/dL Creatinine (0.6-1.2) mg/dL Glucose (65-100) mg/dL POC Glucose 241 H 285 H (70-105) mg/dL Calcium (8.4-10.2) mg/dL
--- NOTE | 2020-11-21 13:43 | Progress Note ---
Assessment and Plan Acute hypoxemic respiratory failure. Severe sepsis. Diabetic ketoacidosis. Acute kidney injury. Pneumonia. Acute on chronic toxic metabolic encephalopathy. PUI COVID-19 infection. Possible urinary tract infection. Adult failure to thrive. History of diabetes. History of hyperlipidemia. - outpatient dental evaluation - agree with PEG placement - no new issues otherwise, continue care as below; - continue to wean supplemental oxygen to keep O2 sats > 90% - Bronchodilators (JOANNA) with pulm hygiene per RT - continue to avoid nephrotoxins, renally dose all medications - continue mobility protocols to prevent pressure ulcers - PT/OT as tolerated - Wound care per RN/WCT - continue accuchecks with glycemic control per SSI for target blood glucose < 180 mg/dL - home oxygen evaluation at discharge - GI & VTE prophylaxis - Flu & pneumovax per protocol - Pulmonary out patient follow up for PFTs and optimization of respiratory status - continue other care per attending / other consultants - prn analgesia per pain score ... re-evaluate in am & prn Subjective Date of service: 11/21/20 Principal diagnosis: Ac hypoxemic resp failure; Sepsis; DKA; RACH; Pneumonia; PUI COVID-19 Interval history: Patient is seen today for: Acute hypoxemic respiratory failure; Severe sepsis; DKA; RACH; Pneumonia; PUI COVID-19 Seen and examined at bedside; 24hour events reviewed; nursing and respiratory care staff consulted; no adverse overnight events reported to me; resting peacefully in bed; completed AB's; on 2L NC; no emesis or overt aspiration Objective Vital Signs - 12hr 11/21/20 11/21/20 03:26 06:12 Temperature 98.0 F Pulse Rate 76 76 Respiratory 16 Rate Blood Pressure 117/70 O2 Sat by Pulse 96 Oximetry Constitutional: appears uncomfortable Eyes: non-icteric ENT: oropharynx moist, other (very poor dentition) Neck: supple, no lymphadenopathy, no JVD Effort: mildly labored Ascultation: Bilateral: diminished breath sounds, rhonchi Percussion: Bilateral: not dull Cardiovascular: regular rate and rhythm Gastrointestinal: normoactive bowel sounds, soft, non-tender, non-distended Integumentary: other (see [facility] notes) Extremities: no cyanosis, no edema, pink and warm, pulses normal Neurologic: pupils equal and round, CN II-XII normal, motor strength normal and, other (+ cognitive dysfunction) Psychiatric: other (+ cognitive dysfunction) CBC and BMP: 11/22/20 08:00 11/22/20 08:00 ABG, PT/INR, D-dimer: PT/INR, D-dimer PT 15.3 Sec. (12.2-14.9) H 11/14/20 16:23 INR 1.21 (0.87-1.13) H 11/14/20 16:23 D-Dimer 2876.26 ng/mlDDU (0-234) H 11/14/20 18:30 Abnormal lab findings: Abnormal Labs 11/14/20 11/14/20 11/14/20 16:23 16:23 16:23 WBC 14.5 H RBC 3.48 L Hgb Hct MCV 101 H RDW Lymph % (Auto) Seg Neutrophils % Seg Neuts % (Manual) 92.0 H Lymphocytes % (Manual) 5.0 L Seg Neutrophils # Seg Neutrophils # Man 13.3 H Lymphocytes # (Manual) 0.7 L PT 15.3 H INR 1.21 H APTT 23.1 L D-Dimer VBG pH Sodium Potassium Chloride Carbon Dioxide BUN Creatinine Glucose POC Glucose Hemoglobin A1c Lactic Acid 7.50 H* Calcium Phosphorus Ferritin Alkaline Phosphatase Lactate Dehydrogenase C-Reactive Protein Total Protein Albumin Urine WBC (Auto) Urine Creatinine 11/14/20 11/14/20 11/14/20 16:23 16:23 16:27 WBC RBC Hgb Hct MCV RDW Lymph % (Auto) Seg Neutrophils % Seg Neuts % (Manual) Lymphocytes % (Manual) Seg Neutrophils # Seg Neutrophils # Man Lymphocytes # (Manual) PT INR APTT D-Dimer VBG pH 7.216 L Sodium 166 H* Potassium Chloride 120.8 H Carbon Dioxide 6 L* BUN 36 H Creatinine 1.9 H Glucose 765 H* POC Glucose Hemoglobin A1c Lactic Acid Calcium 11.4 H Phosphorus Ferritin Alkaline Phosphatase 259 H Lactate Dehydrogenase C-Reactive Protein Total Protein Albumin 3.3 L Urine WBC (Auto) 38.0 H Urine Creatinine 11/14/20 11/14/20 11/14/20 18:22 18:22 18:22 WBC RBC Hgb Hct MCV RDW Lymph % (Auto) Seg Neutrophils % Seg Neuts % (Manual) Lymphocytes % (Manual) Seg Neutrophils # Seg Neutrophils # Man Lymphocytes # (Manual) PT INR APTT D-Dimer VBG pH Sodium Potassium Chloride Carbon Dioxide 11 L BUN 32 H Creatinine 1.5 H Glucose 695 H* POC Glucose Hemoglobin A1c Lactic Acid 2.60 H* Calcium Phosphorus 1.30 L Ferritin Alkaline Phosphatase Lactate Dehydrogenase C-Reactive Protein Total Protein Albumin Urine WBC (Auto) Urine Creatinine 11/14/20 11/14/20 11/14/20 18:30 18:30 18:30 WBC RBC Hgb Hct MCV RDW Lymph % (Auto) Seg Neutrophils % Seg Neuts % (Manual) Lymphocytes % (Manual) Seg Neutrophils # Seg Neutrophils # Man Lymphocytes # (Manual) PT INR APTT D-Dimer 2876.26 H VBG pH Sodium Potassium Chloride Carbon Dioxide BUN Creatinine Glucose POC Glucose Hemoglobin A1c Lactic Acid Calcium Phosphorus Ferritin 623.7 H Alkaline Phosphatase Lactate Dehydrogenase 247 H C-Reactive Protein 52.00 H Total Protein Albumin Urine WBC (Auto) Urine Creatinine 11/14/20 11/14/20 11/14/20 20:23 23:08 23:08 WBC RBC Hgb Hct MCV RDW Lymph % (Auto) Seg Neutrophils % Seg Neuts % (Manual) Lymphocytes % (Manual) Seg Neutrophils # Seg Neutrophils # Man Lymphocytes # (Manual) PT INR APTT D-Dimer VBG pH Sodium Potassium 2.6 L* D Chloride 109.4 H Carbon Dioxide 8 L* 10 L BUN 33 H 32 H Creatinine 1.6 H < 0.2 L D Glucose 753 H* 509 H* POC Glucose Hemoglobin A1c Lactic Acid 5.70 H* Calcium Phosphorus Ferritin Alkaline Phosphatase Lactate Dehydrogenase C-Reactive Protein Total Protein Albumin Urine WBC (Auto) Urine Creatinine 11/14/20 11/15/20 11/15/20 23:14 00:01 00:54 WBC RBC Hgb Hct MCV RDW Lymph % (Auto) Seg Neutrophils % Seg Neuts % (Manual) Lymphocytes % (Manual) Seg Neutrophils # Seg Neutrophils # Man Lymphocytes # (Manual) PT INR APTT D-Dimer VBG pH Sodium Potassium Chloride Carbon Dioxide BUN Creatinine Glucose POC Glucose 427 H 375 H 280 H Hemoglobin A1c Lactic Acid Calcium Phosphorus Ferritin Alkaline Phosphatase Lactate Dehydrogenase C-Reactive Protein Total Protein Albumin Urine WBC (Auto) Urine Creatinine 11/15/20 11/15/20 11/15/20 01:58 02:56 04:53 WBC RBC Hgb Hct MCV RDW Lymph % (Auto) Seg Neutrophils % Seg Neuts % (Manual) Lymphocytes % (Manual) Seg Neutrophils # Seg Neutrophils # Man Lymphocytes # (Manual) PT INR APTT D-Dimer VBG pH Sodium Potassium Chloride Carbon Dioxide BUN Creatinine Glucose POC Glucose 191 H 124 H 140 H Hemoglobin A1c Lactic Acid Calcium Phosphorus Ferritin Alkaline Phosphatase Lactate Dehydrogenase C-Reactive Protein Total Protein Albumin Urine WBC (Auto) Urine Creatinine 11/15/20 11/15/20 11/15/20 06:18 06:18 06:18 WBC RBC 2.74 L Hgb 8.9 L Hct 26.1 L D MCV RDW 12.8 L Lymph % (Auto) Seg Neutrophils % Seg Neuts % (Manual) 81.0 H Lymphocytes % (Manual) Seg Neutrophils # Seg Neutrophils # Man 8.7 H Lymphocytes # (Manual) PT INR APTT D-Dimer VBG pH Sodium 149 H 149 H Potassium Chloride 116.2 H 117.4 H Carbon Dioxide 20 L D 20 L BUN 33 H 32 H Creatinine 1.6 H D 1.6 H Glucose 236 H 231 H POC Glucose Hemoglobin A1c Lactic Acid Calcium Phosphorus Ferritin Alkaline Phosphatase 184 H Lactate Dehydrogenase C-Reactive Protein Total Protein 5.8 L D Albumin 2.5 L Urine WBC (Auto) Urine Creatinine 11/15/20 11/15/20 11/15/20 06:24 10:15 10:18 WBC RBC Hgb Hct MCV RDW Lymph % (Auto) Seg Neutrophils % Seg Neuts % (Manual) Lymphocytes % (Manual) Seg Neutrophils # Seg Neutrophils # Man Lymphocytes # (Manual) PT INR APTT D-Dimer VBG pH Sodium 148 H Potassium Chloride 116.4 H Carbon Dioxide 19 L BUN 33 H Creatinine 1.8 H Glucose 133 H POC Glucose 223 H Hemoglobin A1c 10.8 H Lactic Acid Calcium Phosphorus Ferritin Alkaline Phosphatase Lactate Dehydrogenase C-Reactive Protein Total Protein Albumin Urine WBC (Auto) Urine Creatinine 11/15/20 11/15/20 11/15/20 12:20 17:44 18:31 WBC RBC Hgb Hct MCV RDW Lymph % (Auto) Seg Neutrophils % Seg Neuts % (Manual) Lymphocytes % (Manual) Seg Neutrophils # Seg Neutrophils # Man Lymphocytes # (Manual) PT INR APTT D-Dimer VBG pH Sodium 149 H Potassium Chloride 114.2 H Carbon Dioxide 15 L BUN 37 H Creatinine 2.0 H Glucose 400 H POC Glucose 266 H 350 H Hemoglobin A1c Lactic Acid Calcium Phosphorus Ferritin Alkaline Phosphatase Lactate Dehydrogenase C-Reactive Protein Total Protein Albumin Urine WBC (Auto) Urine Creatinine 11/15/20 11/16/20 11/16/20 21:40 07:00 07:56 WBC RBC Hgb Hct MCV RDW Lymph % (Auto) Seg Neutrophils % Seg Neuts % (Manual) Lymphocytes % (Manual) Seg Neutrophils # Seg Neutrophils # Man Lymphocytes # (Manual) PT INR APTT D-Dimer VBG pH Sodium 152 H Potassium Chloride 118.9 H Carbon Dioxide 17 L BUN 43 H Creatinine 2.7 H Glucose 204 H POC Glucose 195 H 222 H Hemoglobin A1c Lactic Acid Calcium 8.0 L Phosphorus 4.70 H D Ferritin Alkaline Phosphatase Lactate Dehydrogenase C-Reactive Protein Total Protein Albumin Urine WBC (Auto) Urine Creatinine 11/16/20 11/16/20 11/16/20 11:40 17:06 21:07 WBC RBC Hgb Hct MCV RDW Lymph % (Auto) Seg Neutrophils % Seg Neuts % (Manual) Lymphocytes % (Manual) Seg Neutrophils # Seg Neutrophils # Man Lymphocytes # (Manual) PT INR APTT D-Dimer VBG pH Sodium Potassium Chloride Carbon Dioxide BUN Creatinine Glucose POC Glucose 201 H 315 H 230 H Hemoglobin A1c Lactic Acid Calcium Phosphorus Ferritin Alkaline Phosphatase Lactate Dehydrogenase C-Reactive Protein Total Protein Albumin Urine WBC (Auto) Urine Creatinine 11/17/20 11/17/20 11/17/20 07:57 10:30 11:17 WBC RBC Hgb Hct MCV RDW Lymph % (Auto) Seg Neutrophils % Seg Neuts % (Manual) Lymphocytes % (Manual) Seg Neutrophils # Seg Neutrophils # Man Lymphocytes # (Manual) PT INR APTT D-Dimer VBG pH Sodium 153 H Potassium 3.4 L Chloride 122.1 H Carbon Dioxide 19 L BUN 54 H Creatinine 3.6 H Glucose 108 H POC Glucose 253 H 106 H Hemoglobin A1c Lactic Acid Calcium Phosphorus Ferritin Alkaline Phosphatase Lactate Dehydrogenase C-Reactive Protein Total Protein Albumin Urine WBC (Auto) Urine Creatinine 11/17/20 11/17/20 11/17/20 16:00 20:20 20:20 WBC RBC Hgb Hct MCV RDW Lymph % (Auto) Seg Neutrophils % Seg Neuts % (Manual) Lymphocytes % (Manual) Seg Neutrophils # Seg Neutrophils # Man Lymphocytes # (Manual) PT INR APTT D-Dimer VBG pH Sodium Potassium Chloride Carbon Dioxide BUN Creatinine Glucose POC Glucose 198 H Hemoglobin A1c Lactic Acid Calcium Phosphorus Ferritin Alkaline Phosphatase Lactate Dehydrogenase C-Reactive Protein Total Protein Albumin Urine WBC (Auto) 66.0 H Urine Creatinine 67.2 H 11/17/20 11/18/20 11/18/20 21:23 07:43 09:23 WBC 21.0 H RBC 2.97 L Hgb 9.1 L Hct 28.0 L MCV RDW Lymph % (Auto) Seg Neutrophils % Seg Neuts % (Manual) 89.0 H Lymphocytes % (Manual) 6.0 L Seg Neutrophils # Seg Neutrophils # Man 18.7 H Lymphocytes # (Manual) PT INR APTT D-Dimer VBG pH Sodium Potassium Chloride Carbon Dioxide BUN Creatinine Glucose POC Glucose 193 H 181 H Hemoglobin A1c Lactic Acid Calcium Phosphorus Ferritin Alkaline Phosphatase Lactate Dehydrogenase C-Reactive Protein Total Protein Albumin Urine WBC (Auto) Urine Creatinine 11/18/20 11/18/20 11/18/20 09:23 12:54 16:20 WBC RBC Hgb Hct MCV RDW Lymph % (Auto) Seg Neutrophils % Seg Neuts % (Manual) Lymphocytes % (Manual) Seg Neutrophils # Seg Neutrophils # Man Lymphocytes # (Manual) PT INR APTT D-Dimer VBG pH Sodium 152 H Potassium Chloride 119.1 H Carbon Dioxide 19 L BUN 62 H Creatinine 3.9 H Glucose 224 H POC Glucose 297 H 340 H Hemoglobin A1c Lactic Acid Calcium 8.1 L Phosphorus Ferritin Alkaline Phosphatase Lactate Dehydrogenase C-Reactive Protein Total Protein Albumin Urine WBC (Auto) Urine Creatinine 11/18/20 11/19/20 11/19/20 21:28 07:08 07:08 WBC 15.4 H RBC 2.85 L Hgb 8.7 L Hct 26.5 L MCV RDW Lymph % (Auto) Seg Neutrophils % Seg Neuts % (Manual) 94.0 H Lymphocytes % (Manual) 5.0 L Seg Neutrophils # Seg Neutrophils # Man 14.5 H Lymphocytes # (Manual) 0.8 L PT INR APTT D-Dimer VBG pH Sodium 150 H Potassium Chloride 119.5 H Carbon Dioxide 17 L BUN 69 H Creatinine 4.0 H Glucose 274 H POC Glucose 305 H Hemoglobin A1c Lactic Acid Calcium 8.3 L Phosphorus Ferritin Alkaline Phosphatase Lactate Dehydrogenase C-Reactive Protein Total Protein Albumin Urine WBC (Auto) Urine Creatinine 11/19/20 11/19/20 11/20/20 21:35 23:40 07:31 WBC RBC Hgb Hct MCV RDW Lymph % (Auto) Seg Neutrophils % Seg Neuts % (Manual) Lymphocytes % (Manual) Seg Neutrophils # Seg Neutrophils # Man Lymphocytes # (Manual) PT INR APTT D-Dimer VBG pH Sodium Potassium Chloride Carbon Dioxide BUN Creatinine Glucose POC Glucose 399 H 340 H 269 H Hemoglobin A1c Lactic Acid Calcium Phosphorus Ferritin Alkaline Phosphatase Lactate Dehydrogenase C-Reactive Protein Total Protein Albumin Urine WBC (Auto) Urine Creatinine 11/20/20 11/20/20 11/20/20 10:41 11:27 15:57 WBC RBC Hgb Hct MCV RDW Lymph % (Auto) Seg Neutrophils % Seg Neuts % (Manual) Lymphocytes % (Manual) Seg Neutrophils # Seg Neutrophils # Man Lymphocytes # (Manual) PT INR APTT D-Dimer VBG pH Sodium 147 H Potassium Chloride 115.6 H Carbon Dioxide 15 L BUN 75 H Creatinine 3.8 H Glucose 266 H POC Glucose 212 H 189 H Hemoglobin A1c Lactic Acid Calcium 8.2 L Phosphorus Ferritin Alkaline Phosphatase Lactate Dehydrogenase C-Reactive Protein Total Protein Albumin Urine WBC (Auto) Urine Creatinine 11/20/20 11/21/20 11/21/20 20:26 05:04 05:04 WBC 14.2 H RBC 2.48 L Hgb 7.9 L Hct 23.3 L MCV RDW Lymph % (Auto) 10.4 L Seg Neutrophils % 85.3 H Seg Neuts % (Manual) Lymphocytes % (Manual) Seg Neutrophils # 12.1 H Seg Neutrophils # Man Lymphocytes # (Manual) PT INR APTT D-Dimer VBG pH Sodium Potassium Chloride 115.1 H Carbon Dioxide 17 L BUN 71 H Creatinine 3.6 H Glucose 249 H POC Glucose 200 H Hemoglobin A1c Lactic Acid Calcium 7.7 L Phosphorus Ferritin Alkaline Phosphatase Lactate Dehydrogenase C-Reactive Protein Total Protein Albumin Urine WBC (Auto) Urine Creatinine 11/21/20 11/21/20 07:49 11:42 WBC RBC Hgb Hct MCV RDW Lymph % (Auto) Seg Neutrophils % Seg Neuts % (Manual) Lymphocytes % (Manual) Seg Neutrophils # Seg Neutrophils # Man Lymphocytes # (Manual) PT INR APTT D-Dimer VBG pH Sodium Potassium Chloride Carbon Dioxide BUN Creatinine Glucose POC Glucose 241 H 285 H Hemoglobin A1c Lactic Acid Calcium Phosphorus Ferritin Alkaline Phosphatase Lactate Dehydrogenase C-Reactive Protein Total Protein Albumin Urine WBC (Auto) Urine Creatinine Allied health notes reviewed: nursing
[2020-11-21] MEDS: PRAVASTATIN 40 MG TAB PO SCH (21:47)
[2020-11-21] MEDS ORDERED: INSULIN GLARGINE 100 UNITS/ML SUB-Q SCH (22:00)
[2020-11-22] MEDS: DEXTROSE 5% IN WATER 1,000 ML IV SCH (01:20)
[2020-11-22] MEDS: INSULIN LISPRO 100 UNIT/ML SUB-Q SCH ×5 (01:47→23:06)
[2020-11-22 09:14] LABS: Basophils % (Auto) 0.3 % (0.0-1.8); Eosinophils # (Auto) 0.1 K/mm3 (0.0-0.4); Eosinophils % (Auto) 0.6 % (0.0-4.3); Hematocrit 27.3 % (30.3-42.9); Hemoglobin 8.7 gm/dl (10.1-14.3); Lymphocytes # (Auto) 1.1 K/mm3 (1.2-5.4); Lymphocytes % (Auto) 10.2 % (13.4-35.0); Mean Corpuscular HGB Conc 32 % (30-34); Mean Corpuscular Volume 97 fl (79-97); Monocytes # (Auto) 0.5 K/mm3 (0.0-0.8); Monocytes % (Auto) 4.3 % (0.0-7.3); Platelet Count 175 K/mm3 (140-440); Red Blood Count 2.83 M/mm3 (3.65-5.03)
[2020-11-22 09:20] LABS: Calcium 7.5 mg/dL (8.4-10.2)
[2020-11-22 09:33] LABS: INR 1.36 (0.87-1.13)
--- NOTE | 2020-11-22 10:11 | Progress Note ---
Assessment and Plan Acute hypoxemic respiratory failure. Severe sepsis. Diabetic ketoacidosis. Acute kidney injury. Pneumonia. Acute on chronic toxic metabolic encephalopathy. PUI COVID-19 infection. Possible urinary tract infection. Adult failure to thrive. History of diabetes. History of hyperlipidemia. - outpatient dental evaluation - agree with PEG placement - no new issues otherwise, continue care as below; - continue to wean supplemental oxygen to keep O2 sats > 90% - Bronchodilators (JOANNA) with pulm hygiene per RT - continue to avoid nephrotoxins, renally dose all medications - continue mobility protocols to prevent pressure ulcers - PT/OT as tolerated - Wound care per RN/WCT - continue accuchecks with glycemic control per SSI for target blood glucose < 180 mg/dL - home oxygen evaluation at discharge - GI & VTE prophylaxis - Flu & pneumovax per protocol - Pulmonary out patient follow up for PFTs and optimization of respiratory status - continue other care per attending / other consultants - prn analgesia per pain score ... re-evaluate in am & prn Subjective Date of service: 11/22/20 Principal diagnosis: Ac hypoxemic resp failure; Sepsis; DKA; RACH; Pneumonia; PUI COVID-19 Interval history: Patient is seen today for: Acute hypoxemic respiratory failure; Severe sepsis; DKA; RACH; Pneumonia; PUI COVID-19 Seen and examined at bedside; 24hour events reviewed; nursing and respiratory care staff consulted; no adverse overnight events reported to me; resting peacefully in bed; Objective Vital Signs - 12hr 11/22/20 11/22/20 03:00 05:03 Temperature 98.3 F Pulse Rate 60 Respiratory 18 16 Rate Blood Pressure 111/57 O2 Sat by Pulse 96 99 Oximetry Constitutional: appears uncomfortable Eyes: non-icteric ENT: oropharynx moist, other (very poor dentition) Neck: supple, no lymphadenopathy, no JVD Effort: mildly labored Ascultation: Bilateral: diminished breath sounds, rhonchi Percussion: Bilateral: not dull Cardiovascular: regular rate and rhythm Gastrointestinal: normoactive bowel sounds, soft, non-tender, non-distended Integumentary: other (see [facility] notes) Extremities: no cyanosis, no edema, pink and warm, pulses normal Neurologic: pupils equal and round, CN II-XII normal, motor strength normal and, other (+ cognitive dysfunction) Psychiatric: other (+ cognitive dysfunction) CBC and BMP: 11/22/20 08:00 11/22/20 08:00 ABG, PT/INR, D-dimer: PT/INR, D-dimer PT 16.6 Sec. (12.2-14.9) H 11/22/20 08:00 INR 1.36 (0.87-1.13) H 11/22/20 08:00 D-Dimer 2876.26 ng/mlDDU (0-234) H 11/14/20 18:30 Abnormal lab findings: Abnormal Labs 11/14/20 11/14/20 11/14/20 16:23 16:23 16:23 WBC 14.5 H RBC 3.48 L Hgb Hct MCV 101 H RDW Lymph % (Auto) Lymph # (Auto) Seg Neutrophils % Seg Neuts % (Manual) 92.0 H Lymphocytes % (Manual) 5.0 L Seg Neutrophils # Seg Neutrophils # Man 13.3 H Lymphocytes # (Manual) 0.7 L PT 15.3 H INR 1.21 H APTT 23.1 L D-Dimer VBG pH Sodium Potassium Chloride Carbon Dioxide BUN Creatinine Glucose POC Glucose Hemoglobin A1c Lactic Acid 7.50 H* Calcium Phosphorus Ferritin Alkaline Phosphatase Lactate Dehydrogenase C-Reactive Protein Total Protein Albumin Urine WBC (Auto) Urine Creatinine 11/14/20 11/14/20 11/14/20 16:23 16:23 16:27 WBC RBC Hgb Hct MCV RDW Lymph % (Auto) Lymph # (Auto) Seg Neutrophils % Seg Neuts % (Manual) Lymphocytes % (Manual) Seg Neutrophils # Seg Neutrophils # Man Lymphocytes # (Manual) PT INR APTT D-Dimer VBG pH 7.216 L Sodium 166 H* Potassium Chloride 120.8 H Carbon Dioxide 6 L* BUN 36 H Creatinine 1.9 H Glucose 765 H* POC Glucose Hemoglobin A1c Lactic Acid Calcium 11.4 H Phosphorus Ferritin Alkaline Phosphatase 259 H Lactate Dehydrogenase C-Reactive Protein Total Protein Albumin 3.3 L Urine WBC (Auto) 38.0 H Urine Creatinine 11/14/20 11/14/20 11/14/20 18:22 18:22 18:22 WBC RBC Hgb Hct MCV RDW Lymph % (Auto) Lymph # (Auto) Seg Neutrophils % Seg Neuts % (Manual) Lymphocytes % (Manual) Seg Neutrophils # Seg Neutrophils # Man Lymphocytes # (Manual) PT INR APTT D-Dimer VBG pH Sodium Potassium Chloride Carbon Dioxide 11 L BUN 32 H Creatinine 1.5 H Glucose 695 H* POC Glucose Hemoglobin A1c Lactic Acid 2.60 H* Calcium Phosphorus 1.30 L Ferritin Alkaline Phosphatase Lactate Dehydrogenase C-Reactive Protein Total Protein Albumin Urine WBC (Auto) Urine Creatinine 11/14/20 11/14/20 11/14/20 18:30 18:30 18:30 WBC RBC Hgb Hct MCV RDW Lymph % (Auto) Lymph # (Auto) Seg Neutrophils % Seg Neuts % (Manual) Lymphocytes % (Manual) Seg Neutrophils # Seg Neutrophils # Man Lymphocytes # (Manual) PT INR APTT D-Dimer 2876.26 H VBG pH Sodium Potassium Chloride Carbon Dioxide BUN Creatinine Glucose POC Glucose Hemoglobin A1c Lactic Acid Calcium Phosphorus Ferritin 623.7 H Alkaline Phosphatase Lactate Dehydrogenase 247 H C-Reactive Protein 52.00 H Total Protein Albumin Urine WBC (Auto) Urine Creatinine 11/14/20 11/14/20 11/14/20 20:23 23:08 23:08 WBC RBC Hgb Hct MCV RDW Lymph % (Auto) Lymph # (Auto) Seg Neutrophils % Seg Neuts % (Manual) Lymphocytes % (Manual) Seg Neutrophils # Seg Neutrophils # Man Lymphocytes # (Manual) PT INR APTT D-Dimer VBG pH Sodium Potassium 2.6 L* D Chloride 109.4 H Carbon Dioxide 8 L* 10 L BUN 33 H 32 H Creatinine 1.6 H < 0.2 L D Glucose 753 H* 509 H* POC Glucose Hemoglobin A1c Lactic Acid 5.70 H* Calcium Phosphorus Ferritin Alkaline Phosphatase Lactate Dehydrogenase C-Reactive Protein Total Protein Albumin Urine WBC (Auto) Urine Creatinine 11/14/20 11/15/20 11/15/20 23:14 00:01 00:54 WBC RBC Hgb Hct MCV RDW Lymph % (Auto) Lymph # (Auto) Seg Neutrophils % Seg Neuts % (Manual) Lymphocytes % (Manual) Seg Neutrophils # Seg Neutrophils # Man Lymphocytes # (Manual) PT INR APTT D-Dimer VBG pH Sodium Potassium Chloride Carbon Dioxide BUN Creatinine Glucose POC Glucose 427 H 375 H 280 H Hemoglobin A1c Lactic Acid Calcium Phosphorus Ferritin Alkaline Phosphatase Lactate Dehydrogenase C-Reactive Protein Total Protein Albumin Urine WBC (Auto) Urine Creatinine 11/15/20 11/15/20 11/15/20 01:58 02:56 04:53 WBC RBC Hgb Hct MCV RDW Lymph % (Auto) Lymph # (Auto) Seg Neutrophils % Seg Neuts % (Manual) Lymphocytes % (Manual) Seg Neutrophils # Seg Neutrophils # Man Lymphocytes # (Manual) PT INR APTT D-Dimer VBG pH Sodium Potassium Chloride Carbon Dioxide BUN Creatinine Glucose POC Glucose 191 H 124 H 140 H Hemoglobin A1c Lactic Acid Calcium Phosphorus Ferritin Alkaline Phosphatase Lactate Dehydrogenase C-Reactive Protein Total Protein Albumin Urine WBC (Auto) Urine Creatinine 11/15/20 11/15/20 11/15/20 06:18 06:18 06:18 WBC RBC 2.74 L Hgb 8.9 L Hct 26.1 L D MCV RDW 12.8 L Lymph % (Auto) Lymph # (Auto) Seg Neutrophils % Seg Neuts % (Manual) 81.0 H Lymphocytes % (Manual) Seg Neutrophils # Seg Neutrophils # Man 8.7 H Lymphocytes # (Manual) PT INR APTT D-Dimer VBG pH Sodium 149 H 149 H Potassium Chloride 116.2 H 117.4 H Carbon Dioxide 20 L D 20 L BUN 33 H 32 H Creatinine 1.6 H D 1.6 H Glucose 236 H 231 H POC Glucose Hemoglobin A1c Lactic Acid Calcium Phosphorus Ferritin Alkaline Phosphatase 184 H Lactate Dehydrogenase C-Reactive Protein Total Protein 5.8 L D Albumin 2.5 L Urine WBC (Auto) Urine Creatinine 11/15/20 11/15/20 11/15/20 06:24 10:15 10:18 WBC RBC Hgb Hct MCV RDW Lymph % (Auto) Lymph # (Auto) Seg Neutrophils % Seg Neuts % (Manual) Lymphocytes % (Manual) Seg Neutrophils # Seg Neutrophils # Man Lymphocytes # (Manual) PT INR APTT D-Dimer VBG pH Sodium 148 H Potassium Chloride 116.4 H Carbon Dioxide 19 L BUN 33 H Creatinine 1.8 H Glucose 133 H POC Glucose 223 H Hemoglobin A1c 10.8 H Lactic Acid Calcium Phosphorus Ferritin Alkaline Phosphatase Lactate Dehydrogenase C-Reactive Protein Total Protein Albumin Urine WBC (Auto) Urine Creatinine 11/15/20 11/15/20 11/15/20 12:20 17:44 18:31 WBC RBC Hgb Hct MCV RDW Lymph % (Auto) Lymph # (Auto) Seg Neutrophils % Seg Neuts % (Manual) Lymphocytes % (Manual) Seg Neutrophils # Seg Neutrophils # Man Lymphocytes # (Manual) PT INR APTT D-Dimer VBG pH Sodium 149 H Potassium Chloride 114.2 H Carbon Dioxide 15 L BUN 37 H Creatinine 2.0 H Glucose 400 H POC Glucose 266 H 350 H Hemoglobin A1c Lactic Acid Calcium Phosphorus Ferritin Alkaline Phosphatase Lactate Dehydrogenase C-Reactive Protein Total Protein Albumin Urine WBC (Auto) Urine Creatinine 11/15/20 11/16/20 11/16/20 21:40 07:00 07:56 WBC RBC Hgb Hct MCV RDW Lymph % (Auto) Lymph # (Auto) Seg Neutrophils % Seg Neuts % (Manual) Lymphocytes % (Manual) Seg Neutrophils # Seg Neutrophils # Man Lymphocytes # (Manual) PT INR APTT D-Dimer VBG pH Sodium 152 H Potassium Chloride 118.9 H Carbon Dioxide 17 L BUN 43 H Creatinine 2.7 H Glucose 204 H POC Glucose 195 H 222 H Hemoglobin A1c Lactic Acid Calcium 8.0 L Phosphorus 4.70 H D Ferritin Alkaline Phosphatase Lactate Dehydrogenase C-Reactive Protein Total Protein Albumin Urine WBC (Auto) Urine Creatinine 11/16/20 11/16/20 11/16/20 11:40 17:06 21:07 WBC RBC Hgb Hct MCV RDW Lymph % (Auto) Lymph # (Auto) Seg Neutrophils % Seg Neuts % (Manual) Lymphocytes % (Manual) Seg Neutrophils # Seg Neutrophils # Man Lymphocytes # (Manual) PT INR APTT D-Dimer VBG pH Sodium Potassium Chloride Carbon Dioxide BUN Creatinine Glucose POC Glucose 201 H 315 H 230 H Hemoglobin A1c Lactic Acid Calcium Phosphorus Ferritin Alkaline Phosphatase Lactate Dehydrogenase C-Reactive Protein Total Protein Albumin Urine WBC (Auto) Urine Creatinine 11/17/20 11/17/20 11/17/20 07:57 10:30 11:17 WBC RBC Hgb Hct MCV RDW Lymph % (Auto) Lymph # (Auto) Seg Neutrophils % Seg Neuts % (Manual) Lymphocytes % (Manual) Seg Neutrophils # Seg Neutrophils # Man Lymphocytes # (Manual) PT INR APTT D-Dimer VBG pH Sodium 153 H Potassium 3.4 L Chloride 122.1 H Carbon Dioxide 19 L BUN 54 H Creatinine 3.6 H Glucose 108 H POC Glucose 253 H 106 H Hemoglobin A1c Lactic Acid Calcium Phosphorus Ferritin Alkaline Phosphatase Lactate Dehydrogenase C-Reactive Protein Total Protein Albumin Urine WBC (Auto) Urine Creatinine 11/17/20 11/17/20 11/17/20 16:00 20:20 20:20 WBC RBC Hgb Hct MCV RDW Lymph % (Auto) Lymph # (Auto) Seg Neutrophils % Seg Neuts % (Manual) Lymphocytes % (Manual) Seg Neutrophils # Seg Neutrophils # Man Lymphocytes # (Manual) PT INR APTT D-Dimer VBG pH Sodium Potassium Chloride Carbon Dioxide BUN Creatinine Glucose POC Glucose 198 H Hemoglobin A1c Lactic Acid Calcium Phosphorus Ferritin Alkaline Phosphatase Lactate Dehydrogenase C-Reactive Protein Total Protein Albumin Urine WBC (Auto) 66.0 H Urine Creatinine 67.2 H 11/17/20 11/18/20 11/18/20 21:23 07:43 09:23 WBC 21.0 H RBC 2.97 L Hgb 9.1 L Hct 28.0 L MCV RDW Lymph % (Auto) Lymph # (Auto) Seg Neutrophils % Seg Neuts % (Manual) 89.0 H Lymphocytes % (Manual) 6.0 L Seg Neutrophils # Seg Neutrophils # Man 18.7 H Lymphocytes # (Manual) PT INR APTT D-Dimer VBG pH Sodium Potassium Chloride Carbon Dioxide BUN Creatinine Glucose POC Glucose 193 H 181 H Hemoglobin A1c Lactic Acid Calcium Phosphorus Ferritin Alkaline Phosphatase Lactate Dehydrogenase C-Reactive Protein Total Protein Albumin Urine WBC (Auto) Urine Creatinine 11/18/20 11/18/20 11/18/20 09:23 12:54 16:20 WBC RBC Hgb Hct MCV RDW Lymph % (Auto) Lymph # (Auto) Seg Neutrophils % Seg Neuts % (Manual) Lymphocytes % (Manual) Seg Neutrophils # Seg Neutrophils # Man Lymphocytes # (Manual) PT INR APTT D-Dimer VBG pH Sodium 152 H Potassium Chloride 119.1 H Carbon Dioxide 19 L BUN 62 H Creatinine 3.9 H Glucose 224 H POC Glucose 297 H 340 H Hemoglobin A1c Lactic Acid Calcium 8.1 L Phosphorus Ferritin Alkaline Phosphatase Lactate Dehydrogenase C-Reactive Protein Total Protein Albumin Urine WBC (Auto) Urine Creatinine 11/18/20 11/19/20 11/19/20 21:28 07:08 07:08 WBC 15.4 H RBC 2.85 L Hgb 8.7 L Hct 26.5 L MCV RDW Lymph % (Auto) Lymph # (Auto) Seg Neutrophils % Seg Neuts % (Manual) 94.0 H Lymphocytes % (Manual) 5.0 L Seg Neutrophils # Seg Neutrophils # Man 14.5 H Lymphocytes # (Manual) 0.8 L PT INR APTT D-Dimer VBG pH Sodium 150 H Potassium Chloride 119.5 H Carbon Dioxide 17 L BUN 69 H Creatinine 4.0 H Glucose 274 H POC Glucose 305 H Hemoglobin A1c Lactic Acid Calcium 8.3 L Phosphorus Ferritin Alkaline Phosphatase Lactate Dehydrogenase C-Reactive Protein Total Protein Albumin Urine WBC (Auto) Urine Creatinine 11/19/20 11/19/20 11/20/20 21:35 23:40 07:31 WBC RBC Hgb Hct MCV RDW Lymph % (Auto) Lymph # (Auto) Seg Neutrophils % Seg Neuts % (Manual) Lymphocytes % (Manual) Seg Neutrophils # Seg Neutrophils # Man Lymphocytes # (Manual) PT INR APTT D-Dimer VBG pH Sodium Potassium Chloride Carbon Dioxide BUN Creatinine Glucose POC Glucose 399 H 340 H 269 H Hemoglobin A1c Lactic Acid Calcium Phosphorus Ferritin Alkaline Phosphatase Lactate Dehydrogenase C-Reactive Protein Total Protein Albumin Urine WBC (Auto) Urine Creatinine 11/20/20 11/20/20 11/20/20 10:41 11:27 15:57 WBC RBC Hgb Hct MCV RDW Lymph % (Auto) Lymph # (Auto) Seg Neutrophils % Seg Neuts % (Manual) Lymphocytes % (Manual) Seg Neutrophils # Seg Neutrophils # Man Lymphocytes # (Manual) PT INR APTT D-Dimer VBG pH Sodium 147 H Potassium Chloride 115.6 H Carbon Dioxide 15 L BUN 75 H Creatinine 3.8 H Glucose 266 H POC Glucose 212 H 189 H Hemoglobin A1c Lactic Acid Calcium 8.2 L Phosphorus Ferritin Alkaline Phosphatase Lactate Dehydrogenase C-Reactive Protein Total Protein Albumin Urine WBC (Auto) Urine Creatinine 11/20/20 11/21/20 11/21/20 20:26 05:04 05:04 WBC 14.2 H RBC 2.48 L Hgb 7.9 L Hct 23.3 L MCV RDW Lymph % (Auto) 10.4 L Lymph # (Auto) Seg Neutrophils % 85.3 H Seg Neuts % (Manual) Lymphocytes % (Manual) Seg Neutrophils # 12.1 H Seg Neutrophils # Man Lymphocytes # (Manual) PT INR APTT D-Dimer VBG pH Sodium Potassium Chloride 115.1 H Carbon Dioxide 17 L BUN 71 H Creatinine 3.6 H Glucose 249 H POC Glucose 200 H Hemoglobin A1c Lactic Acid Calcium 7.7 L Phosphorus Ferritin Alkaline Phosphatase Lactate Dehydrogenase C-Reactive Protein Total Protein Albumin Urine WBC (Auto) Urine Creatinine 11/21/20 11/21/20 11/21/20 07:49 11:42 16:15 WBC RBC Hgb Hct MCV RDW Lymph % (Auto) Lymph # (Auto) Seg Neutrophils % Seg Neuts % (Manual) Lymphocytes % (Manual) Seg Neutrophils # Seg Neutrophils # Man Lymphocytes # (Manual) PT INR APTT D-Dimer VBG pH Sodium Potassium Chloride Carbon Dioxide BUN Creatinine Glucose POC Glucose 241 H 285 H 282 H Hemoglobin A1c Lactic Acid Calcium Phosphorus Ferritin Alkaline Phosphatase Lactate Dehydrogenase C-Reactive Protein Total Protein Albumin Urine WBC (Auto) Urine Creatinine 11/21/20 11/22/20 11/22/20 20:50 08:00 08:00 WBC RBC 2.83 L Hgb 8.7 L Hct 27.3 L MCV RDW Lymph % (Auto) 10.2 L Lymph # (Auto) 1.1 L Seg Neutrophils % 84.6 H Seg Neuts % (Manual) Lymphocytes % (Manual) Seg Neutrophils # 9.0 H Seg Neutrophils # Man Lymphocytes # (Manual) PT INR APTT D-Dimer VBG pH Sodium Potassium Chloride 111.7 H Carbon Dioxide 17 L BUN 68 H Creatinine 3.4 H Glucose 398 H POC Glucose 295 H Hemoglobin A1c Lactic Acid Calcium 7.5 L Phosphorus Ferritin Alkaline Phosphatase Lactate Dehydrogenase C-Reactive Protein Total Protein Albumin Urine WBC (Auto) Urine Creatinine 11/22/20 08:00 WBC RBC Hgb Hct MCV RDW Lymph % (Auto) Lymph # (Auto) Seg Neutrophils % Seg Neuts % (Manual) Lymphocytes % (Manual) Seg Neutrophils # Seg Neutrophils # Man Lymphocytes # (Manual) PT 16.6 H INR 1.36 H APTT D-Dimer VBG pH Sodium Potassium Chloride Carbon Dioxide BUN Creatinine Glucose POC Glucose Hemoglobin A1c Lactic Acid Calcium Phosphorus Ferritin Alkaline Phosphatase Lactate Dehydrogenase C-Reactive Protein Total Protein Albumin Urine WBC (Auto) Urine Creatinine Allied health notes reviewed: nursing
[2020-11-22] MEDS: HEPARIN 5,000 UNIT/1 ML VIAL SUB-Q SCH ×2 (11:29→23:05)
--- NOTE | 2020-11-22 12:14 | Progress Note ---
Assessment and Plan 1. Acute kidney injury: Vasomotor RACH superimposed on CKD in the setting of sepsis. ATN likely. Renal US and CT abdomen negative for hydro. Monitor renal function. Creatinine level is improving. Renal prognosis is guarded. Avoid nephrotoxic agents. Meds dosage based on GFR. 2. FEN: Hypernatremia, hypotonic IV fluids, improving. Hyperchloremic metabolic acidosis, continue IV D5W, monitor. Monitor lytes and volume status. 3. Sepsis: Likely 2/2 PNA. Covid test negative. Continue abx. Follow cultures. 4. Bilateral PNA: S/p Abx. Covid test negative. 5. DKA: Improved. 6. Dysphagia: Seen by GI and General surgery for PEG placement. 7. Anemia: Monitor. 8. HTN: Monitor BP. 9. Metabolic encephalopathy, POA. - Subjective: Patient was seen and examined at the bedside. - General Appearance: General appearance: appears stated age, not in distress, appears chronically ill HEENT: ATNC, CAITY Neck: Trachea midline Respiratory: coarse breath sounds Cardiology: regular, S1S2, no murmur Gastrointestinal: normoactive bowel sounds, not tender, not distended Integumentary: no rash, warm and dry Neurologic: alert, not following any command, non-verbal Ext: no edema Subjective Date of service: 11/22/20 Principal diagnosis: Ac hypoxemic resp failure; Sepsis; DKA; RACH; Pneumonia; PUI COVID-19 Objective - Vital Signs Vital signs: Vital Signs - 12hr 11/22/20 11/22/20 11/22/20 03:00 05:03 07:55 Temperature 98.3 F Pulse Rate 60 Respiratory 18 16 Rate Blood Pressure 111/57 O2 Sat by Pulse 96 99 94 Oximetry 11/22/20 10:00 Temperature Pulse Rate 59 L Respiratory Rate Blood Pressure O2 Sat by Pulse Oximetry - Lab 11/22/20 08:00 11/22/20 08:00 Most recent lab results Calcium 7.5 mg/dL (8.4-10.2) L 11/22/20 08:00 Phosphorus 3.90 mg/dL (2.5-4.5) 11/20/20 10:41 Magnesium 2.20 mg/dL (1.7-2.3) 11/14/20 18:22 Urine Creatinine 67.2 mg/dL (0.1-20.0) H 11/17/20 20:20 Urine Sodium 74 mmol/L 11/17/20 20:20 Medications & Allergies - Medications Allergies/Adverse Reactions: Allergies No Known Allergies Allergy (Verified 02/26/20 10:24) Home Medications: Home Medications Medication Instructions Recorded Confirmed Last Taken Type Citalopram [Celexa] 20 mg PO QDAY 01/25/20 11/20/20 Unknown History Pravastatin [Pravachol] 40 mg PO QHS 01/25/20 11/20/20 Unknown History Acetaminophen [Mapap] 650 mg PO BID PRN 02/26/20 11/20/20 Unknown History Ascorbic Acid [Vitamin C with Chetna 500 mg PO DAILY 02/26/20 11/20/20 Unknown History Hips] Glimepiride [Amaryl] 4 mg PO QAM 02/26/20 11/20/20 Unknown History Insulin Lispro [Humalog] 5 units SQ AC 02/26/20 11/20/20 Unknown History Multivit-Min/Ferrous Fumarate 15 mg PO DAILY 02/26/20 11/20/20 Unknown History [Multivitamin with Minerals Tab] Apixaban [Eliquis] 2.5 mg PO BID #30 tablet 03/01/20 11/20/20 Unknown Rx Active Medications: Generic Name Dose Route Start Last Admin Trade Name Lulu PRN Reason Stop Dose Admin Acetaminophen 650 mg 11/14/20 18:37 11/16/20 17:23 Acetaminophen 325 Mg Tab PO 650 mg Q6H PRN Administration Pain, Mild (1-3) Lipase/Protease/Amylase 1 each 11/20/20 13:02 Lipase 10,500/Protease 25,000/Amylase 43,750 (Units) Dr Braun FEEDTUBE PRN PRN For Clogged Feeding Tube Citalopram Hydrobromide 20 mg 11/16/20 10:00 11/21/20 10:59 Citalopram 20 Mg Tab PO Not Given QDAY SHAHLA Dextrose 50 ml 11/15/20 10:20 Dextrose 50% In Water (25gm) 50 Ml Syringe IV Q30MIN PRN Hypoglycemia Protocol Famotidine 20 mg 11/16/20 10:00 11/21/20 10:59 Famotidine 20 Mg Tab PO Not Given QDAY SHAHLA Heparin Sodium (Porcine) 5,000 unit 11/15/20 22:00 11/22/20 11:29 Heparin 5,000 Unit/1 Ml Vial SUB-Q Not Given Q12HR SHAHLA Dextrose 1,000 mls @ 50 mls/hr 11/16/20 11:00 11/22/20 01:20 D5w IV 50 mls/hr DIRECT SHAHLA Administration Insulin Glargine 27 units 11/21/20 22:00 11/21/20 21:49 Insulin Glargine 100 Units/Ml SUB-Q 27 units QHS SHAHLA Administration Insulin Human Lispro 0 unit 11/15/20 11:30 11/22/20 11:28 Insulin Lispro 100 Unit/Ml SUB-Q Not Given ACHS [facility] Protocol Oxycodone/Acetaminophen 1 tab 11/15/20 11:45 11/19/20 22:18 Oxycodone /Acetaminophen 5-325mg Tab PO 1 tab Q4H PRN Administration Pain, Moderate (4-6) Pravastatin Sodium 40 mg 11/15/20 22:00 11/21/20 21:47 Pravastatin 40 Mg Tab PO Not Given QHS SHAHLA Simple Syrup 15 ml 11/20/20 13:02 Simple Syrup 15 Ml FEEDTUBE PRN PRN Hypoglycemia Simple Syrup 30 ml 11/20/20 13:02 Simple Syrup 15 Ml FEEDTUBE PRN PRN Hypoglycemia Sodium Bicarbonate 325 mg 11/20/20 13:02 Sodium Bicarbonate 325 Mg Tab FEEDTUBE PRN PRN For Clogged Feeding Tube Sodium Chloride 10 ml 11/14/20 22:00 11/21/20 21:47 Sodium Chloride 0.9% 10 Ml Flush Syringe IV 10 ml BID SHAHLA Administration Sodium Chloride 10 ml 11/14/20 18:33 Sodium Chloride 0.9% 10 Ml Flush Syringe IV PRN PRN LINE FLUSH
--- NOTE | 2020-11-22 12:22 | Progress Note ---
Assessment and Plan Cultures: 11/14/2020 blood culture: no growth 11/14/2020 urine culture: No growth 11/17/2020 urine culture: mixed dillon COVID-19 PCR: Negative A/P: 55-year-old female with diabetes, hyperlipidemia, vascular dementia was brought in from the custodial due to confusion. She had COVID-19 in February 2020, now with DKA and: #Sepsis: Secondary to pneumonia v/s UTI. Chest x-ray with patchy bilateral infiltrates. Also rule out COVID-19. Procalcitonin was 30.66. Abdominal CT with nonobstructive renal calculus. s/p abx. #UTI: UA with pyuria. Admitted with DKA. S/P abx #Diabetic ketoacidosis: required insulin drip while in ICU. #Acute encephalopathy: Likely metabolic, sodium very high on admission. Also, reportedly with underlying vascular dementia. CT head with severe cerebellar atrophy. #RACH: Renally dose antibiotics. #Severe gingivitis/periodontal disease: CT sinuses showed no abnormality. CT head showed no acute intracranial abnormality, showed severe cerebellar atrophy. Recs: -stable off antibiotics. -will need dental eval post discharge -overall, poor prognosis ID will sign off. Please call with questions. Krysitna Townsend MD, FACP [facility] ([facility] O: [phone] F: [phone] Subjective Date of service: 11/22/20 Principal diagnosis: Ac hypoxemic resp failure; Sepsis; DKA; RACH; Pneumonia; PUI COVID-19 Interval history: Afebrile. Non verbal. Calm, lying in bed. Objective - Exam Narrative Exam: Physical Exam: Constitutional: Awake, non verbal, non communicative Head, Ears, Nose: Normocephalic, atraumatic. External ears, nose normal Eyes: Conjunctivae/corneas clear. No icterus. No ptosis. Neck: Supple, no meningeal signs Oral: severe dental and periodontal disease Cardiovascular: S1, S2 normal. Respiratory: Good air entry, clear to auscultation bilaterally GI: Soft, non-tender; bowel sounds normal. No peritoneal signs Musculoskeletal: No pedal edema, no cyanosis. Skin: No rash or abscess Hem/Lymphatic: No palpable cervical or supraclavicular nodes. No lymphangitis Psych: Awake, no agitation Neurological: Awake, doesn't communicate - Constitutional Vitals: Vital Signs Temp Pulse Resp BP Pulse Ox 98.0 F 63 19 124/65 96 11/22/20 12:17 11/22/20 12:17 11/22/20 12:17 11/22/20 12:17 11/22/20 12:17 Temperature -Last 24 Hours Temperature 98.0 F Temperature 98.3 F Temperature 97.4 F Temperature 98.2 F - Labs CBC & Chem 7: 11/22/20 08:00 11/22/20 08:00 Labs: Abnormal lab results 11/21/20 11/21/20 11/22/20 Range/Units 16:15 20:50 08:00 RBC 2.83 L (3.65-5.03) M/mm3 Hgb 8.7 L (10.1-14.3) gm/dl Hct 27.3 L (30.3-42.9) % Lymph % (Auto) 10.2 L (13.4-35.0) % Lymph # (Auto) 1.1 L (1.2-5.4) K/mm3 Seg Neutrophils % 84.6 H (40.0-70.0) % Seg Neutrophils # 9.0 H (1.8-7.7) K/mm3 PT (12.2-14.9) Sec. INR (0.87-1.13) Chloride (98-107) mmol/L Carbon Dioxide (22-30) mmol/L BUN (7-17) mg/dL Creatinine (0.6-1.2) mg/dL Glucose (65-100) mg/dL POC Glucose 282 H 295 H (70-105) mg/dL Calcium (8.4-10.2) mg/dL 11/22/20 11/22/20 Range/Units 08:00 08:00 RBC (3.65-5.03) M/mm3 Hgb (10.1-14.3) gm/dl Hct (30.3-42.9) % Lymph % (Auto) (13.4-35.0) % Lymph # (Auto) (1.2-5.4) K/mm3 Seg Neutrophils % (40.0-70.0) % Seg Neutrophils # (1.8-7.7) K/mm3 PT 16.6 H (12.2-14.9) Sec. INR 1.36 H (0.87-1.13) Chloride 111.7 H (98-107) mmol/L Carbon Dioxide 17 L (22-30) mmol/L BUN 68 H (7-17) mg/dL Creatinine 3.4 H (0.6-1.2) mg/dL Glucose 398 H (65-100) mg/dL POC Glucose (70-105) mg/dL Calcium 7.5 L (8.4-10.2) mg/dL
--- NOTE | 2020-11-22 12:23 | Progress Note ---
Assessment and Plan Assessment and plan: Assessment and Plan Assessment and plan: This is a 55-year-old female who is a resident of [facility] nursing [facility] with vascular dementia, depression, developmental delay, debility, diabetes mellitus, hyperlipidemia, recent COVID 19 infection, chronic kidney disease and recurrent DKA who presents the emergency department on 11/14 with reported confusion and ill-appearing over the past day and hypoglycemia. Evaluation in the emergency department revealed sepsis with tachycardia, febrile to 102.8, tachypnea, lactic acidosis and RACH suspected secondary to urinary tract infection/?covid 19 pna, diabetic ketoacidosis, metabolic acidosis, toxic metabolic encephalopathy, acute kidney injury and hypernatremia. Patient was in sepsis, DKA, follow DKA pathway on insulin drip in ICU, stabilized and transferred to the floor COVID-19 positive, COVID-19 negative, ID following Assessment ; Dysphagia; failed swallow eval For PEG placement, GI consulted sepsis Bilateral pneumonia Urinary tract infection Gingivitis and periodontitis Covid 19 negative DKA-resolved: Uncontrolled diabetes mellitus RACH /worsening renal function nephrology considering hemodialysis Toxic metabolic encephalopathy/multifactorial Hypernaturemia, improving Lactic acidosis, resolved Hypophosphatemia Hypokalemia, resolved Elevated ddimer/venous Doppler negative for DVT Plan; GI consulted for PEG placement, Continue current antibiotics Rocephin, and Flagyl Zithromax discontinued, As recommended by ID Follow cultures Patient needs outpatient dentists evaluation upon discharge Insulin glargine dose increased,Closely monitor blood sugars Follow nephrology evaluation recommendations planning dialysis DVT prophylaxis Heparin renal dose Plan of care reviewed with patient and 11/15: Patient has been transitioned to sliding scale insulin and started on a pured diet. Per SNF patient has completed antibiotic therapy for her mouth. Her leukocytosis, hypernatremia, hyperchloremia, metabolic acidosis have improved. She has worsening kidney function. ID consulted today. 11/16: Continue IV antibiotics of ceftriaxone and azithromycin per ID recommendati ons. Patient has been transitioned from IV insulin drip to long-acting insulin of Lantus 14 units at bedtime. Patient does have acute kidney injury likely secondary to sepsis/ATN +/- vasomotor nephropathy. Creatinine is worse today at 2.7. Consult nephrology for further evaluation. Check CT scan of the abdomen pelvis. 11/17: Continue antibiotics per ID recommendations. Patient appears to have pneumonia and UTI. Blood and urine cultures remain negative x48 hours. Follow- up COVID-[address] scan shows a nonobstructing calculus in the right kidney. Follow-up BMP to assess renal function 11/18: Continue ceftriaxone, itraconazole and azithromycin for sepsis secondary to pneumonia/UTI. Procalcitonin elevated at 30.66. Chest x-ray revealed patchy bilateral infiltrates. Etiology aspiration pneumonia versus COVID-19. COVID-19 PCR pending. Blood and urine cultures remain negative. Nephrology following for acute kidney injury. Creatinine worsened. Follow-up BMP this morning. CT scan negative for obstruction. 11/19/2020; continue current antibiotics per ID COVID-19 test negative, patient is requiring 2 L of nasal cannula oxygen Closely monitor and adjust management as needed Consults and recommendations noted and appreciated 11/20/2020; Dysphagia, failed swallow eval, GI consulted for PEG placement GI recommend laparoscopic /surgical placement of PEG Surgeon Dr. Black consulted, follow clinically Disposition; follow clinically, discharge to SNF when medically stable Follow GI/surgery recommendations for PEG 11/21/20 Patient is going for possible PICC placement today. Patient renal function is improving BUN is 71 and creatinine 3.6. We will continue to monitor the kidney function. Recheck BMP in the morning. Continue Rocephin and metronidazole antibiotic as per ID Discharge plan to SNF when medically stable Bill Poster Installer recommendation are appreciated Recheck CBC BMP in the morning 11/22/20 Patient is doing okay. Patient is nonverbal. No chest pain no shortness of breath Patient is going for g tube placement today. Patient renal function is improving BUN is 68 and creatinine 3.4. We will continue to monitor the kidney function. Recheck BMP in the morning. Continue Rocephin and metronidazole antibiotic as per ID Discharge plan to SNF when medically stable Recheck BMP in the morning History Interval history: Patient is seen and examined Patient chart and medications reviewed Patient is going for G tube placement today Patient is noncommunicative and cachectic Malnourished Vital signs are noted Hospitalist Physical - Constitutional Vitals: Temp Pulse Resp BP Pulse Ox 98.3 F 59 L 16 111/57 94 11/22/20 05:03 11/22/20 10:00 11/22/20 05:03 11/22/20 05:03 11/22/20 07:55 General appearance: Present: no acute distress, cachectic, disheveled HEART Score - HEART Score Troponin: Troponin T < 0.010 ng/mL (0.00-0.029) 11/14/20 16:23 Results - Labs CBC & Chem 7: 11/22/20 08:00 11/22/20 08:00 Labs: Laboratory Last Values WBC 10.7 K/mm3 (4.5-11.0) 11/22/20 08:00 RBC 2.83 M/mm3 (3.65-5.03) L 11/22/20 08:00 Hgb 8.7 gm/dl (10.1-14.3) L 11/22/20 08:00 Hct 27.3 % (30.3-42.9) L 11/22/20 08:00 MCV 97 fl (79-97) 11/22/20 08:00 MCH 31 pg (28-32) 11/22/20 08:00 MCHC 32 % (30-34) 11/22/20 08:00 RDW 14.0 % (13.2-15.2) 11/22/20 08:00 Plt Count 175 K/mm3 (140-440) 11/22/20 08:00 Lymph % (Auto) 10.2 % (13.4-35.0) L 11/22/20 08:00 [place] % (Auto) 4.3 % (0.0-7.3) 11/22/20 08:00 Eos % (Auto) 0.6 % (0.0-4.3) 11/22/20 08:00 Baso % (Auto) 0.3 % (0.0-1.8) 11/22/20 08:00 Lymph # (Auto) 1.1 K/mm3 (1.2-5.4) L 11/22/20 08:00 [place] # (Auto) 0.5 K/mm3 (0.0-0.8) 11/22/20 08:00 Eos # (Auto) 0.1 K/mm3 (0.0-0.4) 11/22/20 08:00 Baso # (Auto) 0.0 K/mm3 (0.0-0.1) 11/22/20 08:00 Add Manual Diff Complete 11/19/20 07:08 Total Counted 100 11/19/20 07:08 Seg Neutrophils % 84.6 % (40.0-70.0) H 11/22/20 08:00 Seg Neuts % (Manual) 94.0 % (40.0-70.0) H 11/19/20 07:08 Band Neutrophils % 1.0 % 11/18/20 09:23 Lymphocytes % (Manual) 5.0 % (13.4-35.0) L 11/19/20 07:08 Monocytes % (Manual) 1.0 % (0.0-7.3) 11/18/20 09:23 Eosinophils % (Manual) 1.0 % (0.0-4.3) 11/19/20 07:08 Metamyelocytes % 1.0 % 11/18/20 09:23 Nucleated RBC % Not Reportable 11/19/20 07:08 Seg Neutrophils # 9.0 K/mm3 (1.8-7.7) H 11/22/20 08:00 Seg Neutrophils # Man 14.5 K/mm3 (1.8-7.7) H 11/19/20 07:08 Band Neutrophils # 0.0 K/mm3 11/19/20 07:08 Lymphocytes # (Manual) 0.8 K/mm3 (1.2-5.4) L 11/19/20 07:08 Abs React Lymphs (Man) 0.0 K/mm3 11/19/20 07:08 Monocytes # (Manual) 0.0 K/mm3 (0.0-0.8) 11/19/20 07:08 Eosinophils # (Manual) 0.2 K/mm3 (0.0-0.4) 11/19/20 07:08 Basophils # (Manual) 0.0 K/mm3 (0.0-0.1) 11/19/20 07:08 Metamyelocytes # 0.0 K/mm3 11/19/20 07:08 Myelocytes # 0.0 K/mm3 11/19/20 07:08 Promyelocytes # 0.0 K/mm3 11/19/20 07:08 Blast Cells # 0.0 K/mm3 11/19/20 07:08 WBC Morphology Not Reportable 11/19/20 07:08 Hypersegmented Neuts Not Reportable 11/19/20 07:08 Hyposegmented Neuts Not Reportable 11/19/20 07:08 Hypogranular Neuts Not Reportable 11/19/20 07:08 Smudge Cells Not Reportable 11/19/20 07:08 Toxic Granulation Not Reportable 11/19/20 07:08 Toxic Vacuolation Not Reportable 11/19/20 07:08 Dohle Bodies Not Reportable 11/19/20 07:08 Pelger-Huet Anomaly Not Reportable 11/19/20 07:08 Jamia Rods Not Reportable 11/19/20 07:08 Platelet Estimate Consistent w auto 11/19/20 07:08 Clumped Platelets Not Reportable 11/19/20 07:08 Plt Clumps, EDTA Not Reportable 11/19/20 07:08 Large Platelets Not Reportable 11/19/20 07:08 Giant Platelets Not Reportable 11/19/20 07:08 Platelet Satelliting Not Reportable 11/19/20 07:08 Plt Morphology Comment Not Reportable 11/19/20 07:08 RBC Morphology Normal 11/19/20 07:08 Dimorphic RBCs Not Reportable 11/19/20 07:08 Polychromasia Not Reportable 11/19/20 07:08 Hypochromasia Not Reportable 11/19/20 07:08 Poikilocytosis Not Reportable 11/19/20 07:08 Anisocytosis Not Reportable 11/19/20 07:08 Microcytosis Not Reportable 11/19/20 07:08 Macrocytosis Not Reportable 11/19/20 07:08 Spherocytes Not Reportable 11/19/20 07:08 Pappenheimer Bodies Not Reportable 11/19/20 07:08 Sickle Cells Not Reportable 11/19/20 07:08 Target Cells Not Reportable 11/19/20 07:08 Tear Drop Cells Not Reportable 11/19/20 07:08 Ovalocytes Not Reportable 11/19/20 07:08 Helmet Cells Not Reportable 11/19/20 07:08 Galvan-Ingenio Bodies Not Reportable 11/19/20 07:08 [place] Rings Not Reportable 11/19/20 07:08 [place] Cells Not Reportable 11/19/20 07:08 Bite Cells Not Reportable 11/19/20 07:08 Crenated Cell Not Reportable 11/19/20 07:08 Elliptocytes Not Reportable 11/19/20 07:08 Acanthocytes (Spur) Not Reportable 11/19/20 07:08 Rouleaux Not Reportable 11/19/20 07:08 Hemoglobin C Crystals Not Reportable 11/19/20 07:08 Schistocytes Not Reportable 11/19/20 07:08 Malaria parasites Not Reportable 11/19/20 07:08 Felice Bodies Not Reportable 11/19/20 07:08 Hem Pathologist Commnt No 11/19/20 07:08 PT 16.6 Sec. (12.2-14.9) H 11/22/20 08:00 INR 1.36 (0.87-1.13) H 11/22/20 08:00 APTT 23.1 Sec. (24.2-36.6) L 11/14/20 16:23 D-Dimer 2876.26 ng/mlDDU (0-234) H 11/14/20 18:30 VBG pH 7.216 (7.320-7.420) L 11/14/20 16:23 Sodium 141 mmol/L (137-145) 11/22/20 08:00 Potassium 4.0 mmol/L (3.6-5.0) 11/22/20 08:00 Chloride 111.7 mmol/L (98-107) H 11/22/20 08:00 Carbon Dioxide 17 mmol/L (22-30) L 11/22/20 08:00 Anion Gap 16 mmol/L 11/22/20 08:00 BUN 68 mg/dL (7-17) H 11/22/20 08:00 Creatinine 3.4 mg/dL (0.6-1.2) H 11/22/20 08:00 Estimated GFR 14 ml/min 11/22/20 08:00 BUN/Creatinine Ratio 20 % 11/22/20 08:00 Glucose 398 mg/dL (65-100) H 11/22/20 08:00 POC Glucose 295 mg/dL (70-105) H 11/21/20 20:50 Hemoglobin A1c 10.8 % (4-6) H 11/15/20 10:15 Ketones Quantitative Moderate (Negative) 11/14/20 16:23 Osmolality 348 Mosm/kg 11/20/20 10:41 Lactic Acid 1.60 mmol/L (0.7-2.0) 11/15/20 06:18 Calcium 7.5 mg/dL (8.4-10.2) L 11/22/20 08:00 Phosphorus 3.90 mg/dL (2.5-4.5) 11/20/20 10:41 Magnesium 2.20 mg/dL (1.7-2.3) 11/14/20 18:22 Ferritin 623.7 ng/mL (10.0-200.0) H 11/14/20 18:30 Total Bilirubin < 0.20 mg/dL (0.1-1.2) 11/15/20 06:18 Direct Bilirubin < 0.2 mg/dL (0-0.2) 11/14/20 16:23 Indirect Bilirubin 0.0 mg/dL 11/14/20 16:23 AST 27 units/L (5-40) 11/15/20 06:18 ALT 20 units/L (7-56) 11/15/20 06:18 Alkaline Phosphatase 184 units/L (35-129) H 11/15/20 06:18 Lactate Dehydrogenase 247 units/L (91-180) H 11/14/20 18:30 Total Creatine Kinase 44 units/L (30-135) 11/20/20 10:41 Troponin T < 0.010 ng/mL (0.00-0.029) 11/14/20 16:23 C-Reactive Protein 52.00 mg/dL (0.00-1.30) H 11/14/20 18:30 Total Protein 5.8 g/dL (6.3-8.2) L D 11/15/20 06:18 Albumin 2.5 g/dL (3.9-5) L 11/15/20 06:18 Albumin/Globulin Ratio 0.8 % 11/15/20 06:18 Procalcitonin 30.66 ng/mL (<0.15) 11/14/20 18:30 Urine Color Yellow (Yellow) 11/17/20 20:20 Urine Turbidity Cloudy (Clear) 11/17/20 20:20 Urine pH 5.0 (5.0-7.0) 11/17/20 20:20 Ur Specific [place] 1.015 (1.003-1.030) 11/17/20 20:20 Urine Protein 100 mg/dl mg/dL (Negative) 11/17/20 20:20 Urine Glucose (UA) 150 mg/dL (Negative) 11/17/20 20:20 Urine Ketones Neg mg/dL (Negative) 11/17/20 20:20 Urine Blood Mod (Negative) 11/17/20 20:20 Urine Nitrite Neg (Negative) 11/17/20 20:20 Urine Bilirubin Neg (Negative) 11/17/20 20:20 Urine Urobilinogen < 2.0 mg/dL (<2.0) 11/17/20 20:20 Ur Leukocyte Esterase Mod (Negative) 11/17/20 20:20 Urine WBC (Auto) 66.0 /HPF (0.0-6.0) H 11/17/20 20:20 Urine RBC (Auto) 59.0 /HPF (0.0-6.0) 11/17/20 20:20 U Epithel Cells (Auto) 1.0 /HPF (0-13.0) 11/17/20 20:20 Urine Bacteria (Auto) 1+ /HPF (Negative) 11/17/20 20:20 Urine Yeast (Budding) 3+ /HPF 11/17/20 20:20 Urine Creatinine 67.2 mg/dL (0.1-20.0) H 11/17/20 20:20 Urine Sodium 74 mmol/L 11/17/20 20:20 Coronavirus (PCR) Negative (Negative) 11/17/20 11:02 Verma/IV: Voiding Method Condom Catheter Active Medications - Current Medications Current Medications: Generic Name Dose Route Start Last Admin Trade Name Freq PRN Reason Stop Dose Admin Acetaminophen 650 mg 11/14/20 18:37 11/16/20 17:23 Acetaminophen 325 Mg Tab PO 650 mg Q6H PRN Administration Pain, Mild (1-3) Lipase/Protease/Amylase 1 each 11/20/20 13:02 Lipase 10,500/Protease 25,000/Amylase 43,750 (Units) Dr Braun FEEDTUBE PRN PRN For Clogged Feeding Tube Citalopram Hydrobromide 20 mg 11/16/20 10:00 11/21/20 10:59 Citalopram 20 Mg Tab PO Not Given QDAY SHAHLA Dextrose 50 ml 11/15/20 10:20 Dextrose 50% In Water (25gm) 50 Ml Syringe IV Q30MIN PRN Hypoglycemia Protocol Famotidine 20 mg 11/16/20 10:00 11/21/20 10:59 Famotidine 20 Mg Tab PO Not Given QDAY SHAHLA Heparin Sodium (Porcine) 5,000 unit 11/15/20 22:00 11/22/20 11:29 Heparin 5,000 Unit/1 Ml Vial SUB-Q Not Given Q12HR [facility] Dextrose 1,000 mls @ 50 mls/hr 11/16/20 11:00 11/22/20 01:20 D5w IV 50 mls/hr DIRECT SHAHLA Administration Insulin Glargine 27 units 11/21/20 22:00 11/21/20 21:49 Insulin Glargine 100 Units/Ml SUB-Q 27 units QHS SHAHLA Administration Insulin Human Lispro 0 unit 11/15/20 11:30 11/22/20 11:28 Insulin Lispro 100 Unit/Ml SUB-Q Not Given ACHS [facility] Protocol Oxycodone/Acetaminophen 1 tab 11/15/20 11:45 11/19/20 22:18 Oxycodone /Acetaminophen 5-325mg Tab PO 1 tab Q4H PRN Administration Pain, Moderate (4-6) Pravastatin Sodium 40 mg 11/15/20 22:00 11/21/20 21:47 Pravastatin 40 Mg Tab PO Not Given QHS SHAHLA Simple Syrup 15 ml 11/20/20 13:02 Simple Syrup 15 Ml FEEDTUBE PRN PRN Hypoglycemia Simple Syrup 30 ml 11/20/20 13:02 Simple Syrup 15 Ml FEEDTUBE PRN PRN Hypoglycemia Sodium Bicarbonate 325 mg 11/20/20 13:02 Sodium Bicarbonate 325 Mg Tab FEEDTUBE PRN PRN For Clogged Feeding Tube Sodium Chloride 10 ml 11/14/20 22:00 11/21/20 21:47 Sodium Chloride 0.9% 10 Ml Flush Syringe IV 10 ml BID SHAHLA Administration Sodium Chloride 10 ml 11/14/20 18:33 Sodium Chloride 0.9% 10 Ml Flush Syringe IV PRN PRN LINE FLUSH Nutrition/Malnutrition Assess - Dietary Evaluation Nutrition/Malnutrition Findings: Nutrition Notes Start: 11/15/20 10:28 Freq: Status: Active Protocol: Document 11/22/20 09:15 LISA (Rec: 11/22/20 09:20 [id number]) Nutrition Notes Initial or Follow up Reassessment Current Diagnosis Acute Kidney Injury,Diabetes, Sepsis,Hyperlipidemia Other Pertinent Diagnosis UTI, bilat pneu, vascular dementia, depression, r/o COVID-19 Current Diet Glucerna 1.2 at 58 ml/hr Labs/Tests BUN 71 Cr 3.6 Pertinent Medications D5w at 50 ml/hr Height 5 ft 4 in Weight 46.8 kg [place] Body Weight (kg) 54.54 BMI 17.6 Weight Status Underweight Subjective/Other Information FU for TF tolerance. Pt NPO for PEG. Burn Absent Trauma Absent Current % PO Negligible Minimum of two criteria No #1 Nutrition Diagnosis Inadequate oral intake Diagnosis Progress(for reassessment Continues documentation) Is patient on ventilator? No Is Patient Ambulatory and/or Out of Bed No REE-([facility]-confined to bed) 1262.316 Kcal/Kg value to use for calculation 36 Approximate Energy Requirements Using 1685 kcal/Kg Calculation Used for Recommendations Kcal/kg Additional Notes PRO needs: 56-70g (1.2-1.5g/kg ) Fluids: 1 mL/kcal or per MD Nutrition Intervention Change Diet Order: Resume TF at lower rate when medically able Nutrition Support: Glucerna 1.2 at 50 mL/hr. Flush with 200 mL q4h for hypernatremia. Flush with 75 ml q4h Kcal 1,440 Protein (gm) 72 Fluid (mL) 966 Goal #1 Initiate TF Goal #2 Weight maintenance/weight gain Anticipated Discharge Needs: TF Glucerna 1.2 at 50 mL/hr. Flush 75 ml q4h Follow-Up By: 11/25/20 Additional Comments FU for TF restart and renal labs - Malnutrition Assessment Minimum of two criteria: Yes - Attestation Statement I have reviewed and agreed w/ Malnutrition eval & tx plan: Yes
--- NOTE | 2020-11-22 13:08 | Event Note ---
Date: 11/22/20 Pt chart reviewed. No overnight events noted. Spoke with patient's sister/POA Carlota Asif today. Explained the indication for feeding tube along with procedure, risks, benefits, and alternatives. All questions answered. She is agreeable to proceed with G tube placement and consent obtained for laparoscopic assisted PEG placement, EGD, possible open G tube. Consent witnessed by RN and on chart. Patient to have procedure today. Patient is NPO
[2020-11-22] MEDS ORDERED: LACTATED RINGERS 1,000 ML ONE (13:17)
[2020-11-22] MEDS ORDERED: LACTATED RINGERS 1,000 ML IV SCH (13:20)
[2020-11-22] MEDS ORDERED: INSULIN LISPRO 100 UNIT/ML SUB-Q ONE ×2 (13:44→14:49)
--- NOTE | 2020-11-22 13:46 | Anesthesia Day of Surgery ---
Anesthesia Day of Surgery - Day of Surgery Patient Examined: Yes Patient H&P Reviewed: Yes Patient is NPO: Yes
[2020-11-22] MEDS ORDERED: fentaNYL 100 MCG/2 ML INJ ONE (13:47)
[2020-11-22] MEDS ORDERED: ONDANSETRON 4 MG/2 ML INJ ONE (13:47)
[2020-11-22] MEDS ORDERED: dexAMETHasone 20 MG/5 ML VIAL ONE (13:47)
[2020-11-22] MEDS ORDERED: LIDOCAINE MPF (2%) 20 MG/1 ML VIAL 5 ML ONE (13:47)
[2020-11-22] MEDS ORDERED: SUCCINYLCHOLINE CHLORIDE 200 MG/10 ML INJ MDV ONE (13:47)
[2020-11-22] MEDS ORDERED: ROCURONIUM 50 MG/5 ML INJ IV ONE (13:47)
[2020-11-22] MEDS ORDERED: propofoL 200 MG/20 ML VIAL IV ONE (13:47)
[2020-11-22] MEDS ORDERED: LIDOCAINE (1%) 10 MG/1 ML VIAL 20 ML MDV ONE (13:52)
[2020-11-22] MEDS ORDERED: BUPIVACAINE/PF (0.25%) 2.5 MG/ML 30 ML VIAL INFILTRATI ONE ×2 (13:52→15:40)
--- NOTE | 2020-11-22 13:53 | Anesthesia Consultation ---
Anesthesia Consult and Med Hx - Pre-Operative Health Status ASA Pre-Surgery Classification: ASA4 Proposed Anesthetic Plan: MAC (GA if needed) - Pulmonary Hx Pneumonia: Yes (COVID NEGATIVE. Reportedly had COVD previously) - Central Nervous System Hx Neuromuscular Disorder: Yes (Vascular dementia with confusion; nonverbal) Hx Psychiatric Problems: Yes - Endocrine Hx Renal Disease: Yes (Had UTI and sepsis-->DKA on admission. RACH/ATN) Hx Insulin Dependent Diabetes: Yes (Pt has not been receiving insulin-elevated BS. Anion gap not increased) - Hematic Hx Anemia: Yes (8.7/27.3) - Other Systems Hx Obesity: No - Additional Comments Anesthesia Medical History Comments: This is a 55-year-old female who is a resident of [facility] nursing [facility] with vascular dementia, depression, developmental delay, debility, diabetes mellitus, hyperlipidemia, recent COVID 19 infection, chronic kidney disease and recurrent DKA who presents the emergency department on 11/14 with reported confusion and ill-appearing over the past day and hyperglycemia
[2020-11-22] MEDS ORDERED: HYDROmorphone 1 MG/1 ML INJ IV PRN ×2 (13:59)
[2020-11-22] MEDS ORDERED: ONDANSETRON 4 MG/2 ML INJ IV PRN (13:59)
[2020-11-22] MEDS ORDERED: ceFAZolin/STERILE WATER 2 GM/20 ML SYRINGE IV NR (14:00)
--- NOTE | 2020-11-22 14:06 | Anesthesia Consultation ---
Anesthesia Consult and Med Hx Date of service: 11/22/20 - Airway Anesthetic Teeth Evaluation: Poor (Rotten), Chipped ROM Head & Neck: Adequate Mental/Hyoid Distance: Adequate Mallampati Class: Class III Intubation Access Assessment: Probably Good - Pre-Operative Health Status ASA Pre-Surgery Classification: ASA4 Proposed Anesthetic Plan: General - Pulmonary Hx Pneumonia: Yes (COVID NEGATIVE. Reportedly had COVD previously) - Central Nervous System Hx Neuromuscular Disorder: Yes (Vascular dementia with confusion; nonverbal) Hx Psychiatric Problems: Yes - Endocrine Hx Renal Disease: Yes (Had UTI and sepsis-->DKA on admission. RACH/ATN) Hx Insulin Dependent Diabetes: Yes (Pt has not been receiving insulin-elevated BS. Anion gap not increased) - Hematic Hx Anemia: Yes (8.7/27.3) - Other Systems Hx Obesity: No - Additional Comments Anesthesia Medical History Comments: This is a 55-year-old female who is a resident of [facility] nursing [facility] with vascular dementia, depression, developmental delay, debility, diabetes mellitus, hyperlipidemia, recent COVID 19 infection, chronic kidney disease and recurrent DKA who presents the emergency department on 11/14 with reported confusion and ill-appearing over the past day and hyperglycemia
[2020-11-22] MEDS ORDERED: NEOSTIGMINE 10MG/10 ML INJ MDV ONE (15:39)
[2020-11-22] MEDS ORDERED: GLYCOPYRROLATE 0.4 MG/2 ML INJ ONE (15:39)
[2020-11-22] MEDS ORDERED: LIDOCAINE (1%) 10 MG/1 ML VIAL 20 ML MDV INFILTRATI ONE (15:41)
--- NOTE | 2020-11-22 16:10 | Post Operative Note ---
Date of procedure: 11/22/20 Pre-op diagnosis: dysphagia Post-op diagnosis: same Findings: good placement of PEG under lap guidance Procedure: Laparoscopic assisted PEG placement, EGD Anesthesia: GETA, local Surgeon: NOHELIA CAMPOS Lens Mounter: JUSTINA SHAH (cosurgeon) Estimated blood loss: minimal Pathology: none Condition: stable Disposition: PACU
[2020-11-22] MEDS ORDERED: SODIUM BICARBONATE 325 MG TAB FEEDTUBE PRN (16:13)
[2020-11-22] MEDS ORDERED: LIPASE 10,500/PROTEASE 25,000/AMYLASE 43,750 (UNITS) DR CAP FEEDTUBE PRN (16:13)
[2020-11-22] MEDS ORDERED: SIMPLE SYRUP 15 ML FEEDTUBE PRN ×2 (16:13)
--- NOTE | 2020-11-22 16:30 | Post Anesthesia Evaluation ---
- Post Anesthesia Evaluation Patient Participated: Yes Airway Patent: Yes Stable Respiratory Function: Yes Nausea/Vomiting: No Temp > 96.8F: Yes Pain Manageable: Yes Adequeate Hydration: Yes Anesthesia Complications: No Block Receding Appropriately: Not Applicable Patient on Ventilator: No
[2020-11-22] MEDS: CITALOPRAM 20 MG TAB PO SCH (16:33)
[2020-11-22] MEDS: FAMOTIDINE 20 MG TAB PO SCH (16:33)
--- NOTE | 2020-11-22 17:00 | Operative Report ---
Operative Report Operative Report: Date of procedure: 11/22/20 Pre-op diagnosis: dysphagia Post-op diagnosis: same Findings: good placement of PEG under lap guidance Bumper 2 cm at the skin Procedure: Laparoscopic assisted PEG placement, EGD Anesthesia: SAMARA local Surgeon: NOHELIA CAMPOS Forest[employer] Farm Laborer: JSUTINA WORTHY (cosurgeon) Estimated blood loss: minimal Pathology: none Condition: stable Disposition: PACU HPI and indication: Patient is a 55-year-old female with dementia, severe dysphagia. The patient was evaluated by speech therapy and was found to be at high risk for aspiration. It was recommended that she be maintained n.p.o. and a PEG tube be placed. Due to the patient's anatomy on CT scan, it was felt that she was not a candidate for traditional PEG placement. It was recommended that she undergo surgical PEG placement with a laparoscopic guidance. The procedure along with risks, benefits, alternatives were discussed with the patient's sister/NOK/JERI Asif . All questions were answered and consent obtained. Procedure in detail: The patient was identified in the preoperative area, taken back to the operating room, placed on the operating room table in supine position. After anesthesia was induced the abdomen was prepped and draped in the usual sterile fashion and a timeout performed. Local anesthetic was infiltrated into the skin at the intended incision site. A 5 mm incision was made above the umbilicus through which a Veress needle was inserted. The Veress needle position was confirmed using the saline drop test. The abdomen was insufflated to 15 mmHg. The Veress needle was then removed and a 5 mm Optiview trocar placed through this incision. The abdomen was inspected and there was no underlying injury to any of the abdominal structures. At this point Dr. Worthy performed endoscopy. A mouthguard was placed through which a flexible endoscope was passed through the mouth and into the esophagus. The NG tube was visualized along the way. The endoscope was advanced through the esophagus and into the stomach. The stomach was unremarkable. The stomach was insufflated and transillumination performed. An area of transillumination was visualized in the left upper quadrant and marked. The stomach was also seen to be insufflated and directly oppose the abdominal wall at the area of transillumination. A small incision was made in the skin using an 11 blade. An introducer needle/breakaway sheath was inserted directly through this incision into the stomach under direct endoscopic and laparoscopic visualization. The needle was removed. The wire was passed and grasped with a snare by the financial administrative assistant and the wire pulled along with the endoscope through the mouth. The PEG tube was assembled onto the wire and pulled back through the mouth and down into the stomach. The outer bumper was at 2 cm at the skin. The PEG tube was cut to size and assembled in the usual fashion. A drain sponge was applied between the skin and the PEG tube and the tube secured with tape. The endoscope was reinserted into the mouth and advanced into the stomach. The PEG tube inner bumper was seen to lay flush against the gastric mucosa without tension. There is no bleeding. The pylorus was entered and the first portion of the duodenum was unremarkable. The scope was then withdrawn into the stomach and retroflexed. The entirety of the stomach was unremarkable. The stomach was then desufflated and the endoscope withdrawn. The abdomen was completely desufflated and the 5 mm port removed. The skin incision was once again infiltrated with local anesthetic and the skin approximated using a 4-0 Monocryl subcuticular stitch and skin glue. At the end of the case all sponge, instrument, sharp counts were correct x2. The patient was awoken from anesthesia and extubated, taken to PACU in stable condition. The patient sister was updated after the procedure. Tube feeds were written to be started at 20:00
[2020-11-22] MEDS: PRAVASTATIN 40 MG TAB PO SCH (23:06)
[2020-11-22] MEDS: INSULIN GLARGINE 100 UNITS/ML SUB-Q SCH (23:07)
[2020-11-23] MEDS: DEXTROSE 5% IN WATER 1,000 ML IV SCH (04:54)
--- NOTE | 2020-11-23 08:16 | Progress Note ---
Assessment and Plan 1. Acute kidney injury: Vasomotor RACH superimposed on CKD in the setting of sepsis. ATN likely. Renal US and CT abdomen negative for hydro. Monitor renal function. Creatinine level is improving. Renal prognosis is guarded. Avoid nephrotoxic agents. Meds dosage based on GFR. 2. FEN: Hypernatremia, hypotonic IV fluids, monitor. Water flushes. Hyperchloremic metabolic acidosis, on IV D5W, monitor. Monitor lytes and volume status. 3. Sepsis: Likely 2/2 PNA. Covid test negative. Follow cultures. 4. Bilateral PNA: S/p Abx. Covid test negative. 5. DKA: Improved. 6. Dysphagia: S/p PEG placement. 7. Anemia: Monitor. 8. HTN: Monitor BP. 9. Metabolic encephalopathy, POA. - Subjective: Patient was seen and examined at the bedside. - General Appearance: General appearance: appears stated age, not in distress, appears chronically ill HEENT: ATNC, CAITY Neck: Trachea midline Respiratory: coarse breath sounds Cardiology: regular, S1S2, no murmur Gastrointestinal: normoactive bowel sounds, not tender, not distended, PEG tube noted Integumentary: no rash, warm and dry Neurologic: alert, not following any command, non-verbal Ext: no edema Subjective Date of service: 11/23/20 Principal diagnosis: Ac hypoxemic resp failure; Sepsis; DKA; RACH; Pneumonia; PUI COVID-19 Objective - Vital Signs Vital signs: Vital Signs - 12hr 11/22/20 11/23/20 21:40 04:37 Temperature 98.0 F 98.2 F Pulse Rate 61 63 Respiratory 18 18 Rate Blood Pressure 125/62 106/59 O2 Sat by Pulse 100 100 Oximetry - Lab 11/22/20 08:00 11/23/20 09:23 Most recent lab results Calcium 7.5 mg/dL (8.4-10.2) L 11/22/20 08:00 Phosphorus 3.90 mg/dL (2.5-4.5) 11/20/20 10:41 Magnesium 2.20 mg/dL (1.7-2.3) 11/14/20 18:22 Urine Creatinine 67.2 mg/dL (0.1-20.0) H 11/17/20 20:20 Urine Sodium 74 mmol/L 11/17/20 20:20 Medications & Allergies - Medications Allergies/Adverse Reactions: Allergies No Known Allergies Allergy (Verified 02/26/20 10:24) Home Medications: Home Medications Medication Instructions Recorded Confirmed Last Taken Type Citalopram [Celexa] 20 mg PO QDAY 01/25/20 11/20/20 Unknown History Pravastatin [Pravachol] 40 mg PO QHS 01/25/20 11/20/20 Unknown History Acetaminophen [Mapap] 650 mg PO BID PRN 02/26/20 11/20/20 Unknown History Ascorbic Acid [Vitamin C with Chetna 500 mg PO DAILY 02/26/20 11/20/20 Unknown History Hips] Glimepiride [Amaryl] 4 mg PO QAM 02/26/20 11/20/20 Unknown History Insulin Lispro [Humalog] 5 units SQ AC 02/26/20 11/20/20 Unknown History Multivit-Min/Ferrous Fumarate 15 mg PO DAILY 02/26/20 11/20/20 Unknown History [Multivitamin with Minerals Tab] Apixaban [Eliquis] 2.5 mg PO BID #30 tablet 03/01/20 11/20/20 Unknown Rx Active Medications: Generic Name Dose Route Start Last Admin Trade Name Freq PRN Reason Stop Dose Admin Acetaminophen 650 mg 11/14/20 18:37 11/16/20 17:23 Acetaminophen 325 Mg Tab PO 650 mg Q6H PRN Administration Pain, Mild (1-3) Lipase/Protease/Amylase 1 each 11/22/20 16:13 Lipase 10,500/Protease 25,000/Amylase 43,750 (Units) Dr Braun FEEDTUBE PRN PRN For Clogged Feeding Tube Citalopram Hydrobromide 20 mg 11/16/20 10:00 11/22/20 16:33 Citalopram 20 Mg Tab PO Not Given QDAY SHAHLA Dextrose 50 ml 11/15/20 10:20 Dextrose 50% In Water (25gm) 50 Ml Syringe IV Q30MIN PRN Hypoglycemia Protocol Famotidine 20 mg 11/16/20 10:00 11/22/20 16:33 Famotidine 20 Mg Tab PO Not Given QDAY SHAHLA Heparin Sodium (Porcine) 5,000 unit 11/15/20 22:00 11/22/20 23:05 Heparin 5,000 Unit/1 Ml Vial SUB-Q 5,000 unit Q12HR SHAHLA Administration Dextrose 1,000 mls @ 30 mls/hr 11/16/20 11:00 11/23/20 04:54 D5w IV 30 mls/hr DIRECT SHAHLA Administration Lactated Ringer's 1,000 mls @ 42 mls/hr 11/22/20 13:20 11/22/20 13:20 Lactated Ringers IV 42 mls/hr DIRECT SHAHLA Administration Insulin Glargine 30 units 11/22/20 13:08 11/22/20 23:07 Insulin Glargine 100 Units/Ml SUB-Q Not Given QHS SHAHLA Insulin Human Lispro 0 unit 11/15/20 11:30 11/22/20 23:06 Insulin Lispro 100 Unit/Ml SUB-Q Not Given ACHS [facility] Protocol Ondansetron HCl 4 mg 11/22/20 13:59 Ondansetron 4 Mg/2 Ml Inj IV ONCE PRN Nausea And Vomiting Oxycodone/Acetaminophen 1 tab 11/15/20 11:45 11/19/20 22:18 Oxycodone /Acetaminophen 5-325mg Tab PO 1 tab Q4H PRN Administration Pain, Moderate (4-6) Pravastatin Sodium 40 mg 11/15/20 22:00 11/22/20 23:06 Pravastatin 40 Mg Tab PO 40 mg QHS SHAHLA Administration Simple Syrup 15 ml 11/22/20 16:13 Simple Syrup 15 Ml FEEDTUBE PRN PRN Hypoglycemia Simple Syrup 30 ml 11/22/20 16:13 Simple Syrup 15 Ml FEEDTUBE PRN PRN Hypoglycemia Sodium Bicarbonate 325 mg 11/22/20 16:13 Sodium Bicarbonate 325 Mg Tab FEEDTUBE PRN PRN For Clogged Feeding Tube Sodium Chloride 10 ml 11/14/20 22:00 11/22/20 23:06 Sodium Chloride 0.9% 10 Ml Flush Syringe IV 10 ml BID SHAHLA Administration Sodium Chloride 10 ml 11/14/20 18:33 Sodium Chloride 0.9% 10 Ml Flush Syringe IV PRN PRN LINE FLUSH
[2020-11-23 08:28] LABS: Calcium 7.8 mg/dL (8.4-10.2)
[2020-11-23] MEDS: INSULIN LISPRO 100 UNIT/ML SUB-Q SCH ×4 (08:49→21:59)
[2020-11-23 10:07] LABS: Calcium 7.9 mg/dL (8.4-10.2)
[2020-11-23] MEDS: HEPARIN 5,000 UNIT/1 ML VIAL SUB-Q SCH ×2 (10:39→21:59)
[2020-11-23] MEDS: FAMOTIDINE 20 MG TAB PO SCH (10:39)
[2020-11-23] MEDS: CITALOPRAM 20 MG TAB PO SCH (10:39)
--- NOTE | 2020-11-23 10:43 | Progress Note ---
Assessment and Plan Assessment and plan: Assessment and Plan Assessment and plan: This is a 55-year-old female who is a resident of [facility] with vascular dementia, depression, developmental delay, debility, diabetes mellitus, hyperlipidemia, recent COVID 19 infection, chronic kidney disease and recurrent DKA who presents the emergency department on 11/14 with reported confusion and ill-appearing over the past day and hypoglycemia. Evaluation in the emergency department revealed sepsis with tachycardia, febrile to 102.8, tachypnea, lactic acidosis and RACH suspected secondary to urinary tract infection/?covid 19 pna, diabetic ketoacidosis, metabolic acidosis, toxic metabolic encephalopathy, acute kidney injury and hypernatremia. Patient was in sepsis, DKA, follow DKA pathway on insulin drip in ICU, stabilized and transferred to the floor COVID-19 positive, COVID-19 negative, ID following Assessment ; Dysphagia; failed swallow eval For PEG placement, GI consulted sepsis Bilateral pneumonia Urinary tract infection Gingivitis and periodontitis Covid 19 negative DKA-resolved: Uncontrolled diabetes mellitus RACH /worsening renal function nephrology considering hemodialysis Toxic metabolic encephalopathy/multifactorial Hypernaturemia, improving Lactic acidosis, resolved Hypophosphatemia Hypokalemia, resolved Elevated ddimer/venous Doppler negative for DVT Plan; GI consulted for PEG placement, Continue current antibiotics Rocephin, and Flagyl Zithromax discontinued, As recommended by ID Follow cultures Patient needs outpatient dentists evaluation upon discharge Insulin glargine dose increased,Closely monitor blood sugars Follow nephrology evaluation recommendations planning dialysis DVT prophylaxis Heparin renal dose Plan of care reviewed with patient and 11/15: Patient has been transitioned to sliding scale insulin and started on a pured diet. Per SNF patient has completed antibiotic therapy for her mouth. Her leukocytosis, hypernatremia, hyperchloremia, metabolic acidosis have improved. She has worsening kidney function. ID consulted today. 11/16: Continue IV antibiotics of ceftriaxone and azithromycin per ID recommendati ons. Patient has been transitioned from IV insulin drip to long-acting insulin of Lantus 14 units at bedtime. Patient does have acute kidney injury likely secondary to sepsis/ATN +/- vasomotor nephropathy. Creatinine is worse today at 2.7. Consult nephrology for further evaluation. Check CT scan of the abdomen pelvis. 11/17: Continue antibiotics per ID recommendations. Patient appears to have pneumonia and UTI. Blood and urine cultures remain negative x48 hours. Follow- up COVID-[address] scan shows a nonobstructing calculus in the right kidney. Follow-up BMP to assess renal function 11/18: Continue ceftriaxone, itraconazole and azithromycin for sepsis secondary to pneumonia/UTI. Procalcitonin elevated at 30.66. Chest x-ray revealed patchy bilateral infiltrates. Etiology aspiration pneumonia versus COVID-19. COVID-19 PCR pending. Blood and urine cultures remain negative. Nephrology following for acute kidney injury. Creatinine worsened. Follow-up BMP this morning. CT scan negative for obstruction. 11/19/2020; continue current antibiotics per ID COVID-19 test negative, patient is requiring 2 L of nasal cannula oxygen Closely monitor and adjust management as needed Consults and recommendations noted and appreciated 11/20/2020; Dysphagia, failed swallow eval, GI consulted for PEG placement GI recommend laparoscopic /surgical placement of PEG Surgeon Dr. Black consulted, follow clinically Disposition; follow clinically, discharge to SNF when medically stable Follow GI/surgery recommendations for PEG 11/21/20 Patient is going for possible PICC placement today. Patient renal function is improving BUN is 71 and creatinine 3.6. We will continue to monitor the kidney function. Recheck BMP in the morning. 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 Patient is nonverbal. No chest pain no shortness of breath Patient is going for g tube placement today. Patient renal function is improving BUN is 68 and creatinine 3.4. We will continue to monitor the kidney function. Recheck BMP in the morning. Continue Rocephin and metronidazole antibiotic as per ID Discharge plan to SNF when medically stable Recheck BMP in the morning 11/23/20 Patient is seen and examined Patient chart and medications reviewed Patient is sleeping Patient is noncommunicative and cachectic Malnourished Patient is status post PEG tube placement yesterday Renal function is improving. BUN is 59 creatinine 3.1 Continue current management and antibiotic Recheck BMP in the morning Discharge plan to SNF when medically stable History Interval history: Patient is seen and examined Patient chart and medications reviewed Patient is sleeping Patient is noncommunicative and cachectic Malnourished Patient is status post PEG tube placement yesterday Vital signs are noted Hospitalist Physical - Constitutional Vitals: Temp Pulse Resp BP Pulse Ox 98.2 F 65 18 106/59 99 11/23/20 04:37 11/23/20 10:00 11/23/20 04:37 11/23/20 04:37 11/23/20 09:14 General appearance: Present: no acute distress, cachectic, disheveled - EENT Eyes: Present: PERRL, EOM intact ENT: hearing intact - Neck Neck: Present: supple, normal ROM - Respiratory Respiratory effort: normal Respiratory: bilateral: diminished - Cardiovascular Heart Sounds: Present: S1 & S2 - Extremities Extremities: no ischemia Peripheral Pulses: within normal limits - Abdominal General gastrointestinal: soft, non-tender, non-distended, normal bowel sounds - Integumentary Integumentary: Present: warm, dry - Neurologic Neurologic: CNII-XII intact HEART Score - HEART Score Troponin: Troponin T < 0.010 ng/mL (0.00-0.029) 11/14/20 16:23 Results - Labs CBC & Chem 7: 11/22/20 08:00 11/23/20 09:23 Labs: Laboratory Last Values WBC 10.7 K/mm3 (4.5-11.0) 11/22/20 08:00 RBC 2.83 M/mm3 (3.65-5.03) L 11/22/20 08:00 Hgb 8.7 gm/dl (10.1-14.3) L 11/22/20 08:00 Hct 27.3 % (30.3-42.9) L 11/22/20 08:00 MCV 97 fl (79-97) 11/22/20 08:00 MCH 31 pg (28-32) 11/22/20 08:00 MCHC 32 % (30-34) 11/22/20 08:00 RDW 14.0 % (13.2-15.2) 11/22/20 08:00 Plt Count 175 K/mm3 (140-440) 11/22/20 08:00 Lymph % (Auto) 10.2 % (13.4-35.0) L 11/22/20 08:00 Leake % (Auto) 4.3 % (0.0-7.3) 11/22/20 08:00 Eos % (Auto) 0.6 % (0.0-4.3) 11/22/20 08:00 Baso % (Auto) 0.3 % (0.0-1.8) 11/22/20 08:00 Lymph # (Auto) 1.1 K/mm3 (1.2-5.4) L 11/22/20 08:00 Leake # (Auto) 0.5 K/mm3 (0.0-0.8) 11/22/20 08:00 Eos # (Auto) 0.1 K/mm3 (0.0-0.4) 11/22/20 08:00 Baso # (Auto) 0.0 K/mm3 (0.0-0.1) 11/22/20 08:00 Add Manual Diff Complete 11/19/20 07:08 Total Counted 100 11/19/20 07:08 Seg Neutrophils % 84.6 % (40.0-70.0) H 11/22/20 08:00 Seg Neuts % (Manual) 94.0 % (40.0-70.0) H 11/19/20 07:08 Band Neutrophils % 1.0 % 11/18/20 09:23 Lymphocytes % (Manual) 5.0 % (13.4-35.0) L 11/19/20 07:08 Monocytes % (Manual) 1.0 % (0.0-7.3) 11/18/20 09:23 Eosinophils % (Manual) 1.0 % (0.0-4.3) 11/19/20 07:08 Metamyelocytes % 1.0 % 11/18/20 09:23 Nucleated RBC % Not Reportable 11/19/20 07:08 Seg Neutrophils # 9.0 K/mm3 (1.8-7.7) H 11/22/20 08:00 Seg Neutrophils # Man 14.5 K/mm3 (1.8-7.7) H 11/19/20 07:08 Band Neutrophils # 0.0 K/mm3 11/19/20 07:08 Lymphocytes # (Manual) 0.8 K/mm3 (1.2-5.4) L 11/19/20 07:08 Abs React Lymphs (Man) 0.0 K/mm3 11/19/20 07:08 Monocytes # (Manual) 0.0 K/mm3 (0.0-0.8) 11/19/20 07:08 Eosinophils # (Manual) 0.2 K/mm3 (0.0-0.4) 11/19/20 07:08 Basophils # (Manual) 0.0 K/mm3 (0.0-0.1) 11/19/20 07:08 Metamyelocytes # 0.0 K/mm3 11/19/20 07:08 Myelocytes # 0.0 K/mm3 11/19/20 07:08 Promyelocytes # 0.0 K/mm3 11/19/20 07:08 Blast Cells # 0.0 K/mm3 11/19/20 07:08 WBC Morphology Not Reportable 11/19/20 07:08 Hypersegmented Neuts Not Reportable 11/19/20 07:08 Hyposegmented Neuts Not Reportable 11/19/20 07:08 Hypogranular Neuts Not Reportable 11/19/20 07:08 Smudge Cells Not Reportable 11/19/20 07:08 Toxic Granulation Not Reportable 11/19/20 07:08 Toxic Vacuolation Not Reportable 11/19/20 07:08 Dohle Bodies Not Reportable 11/19/20 07:08 Pelger-Huet Anomaly Not Reportable 11/19/20 07:08 Jamia Rods Not Reportable 11/19/20 07:08 Platelet Estimate Consistent w auto 11/19/20 07:08 Clumped Platelets Not Reportable 11/19/20 07:08 Plt Clumps, EDTA Not Reportable 11/19/20 07:08 Large Platelets Not Reportable 11/19/20 07:08 Giant Platelets Not Reportable 11/19/20 07:08 Platelet Satelliting Not Reportable 11/19/20 07:08 Plt Morphology Comment Not Reportable 11/19/20 07:08 RBC Morphology Normal 11/19/20 07:08 Dimorphic RBCs Not Reportable 11/19/20 07:08 Polychromasia Not Reportable 11/19/20 07:08 Hypochromasia Not Reportable 11/19/20 07:08 Poikilocytosis Not Reportable 11/19/20 07:08 Anisocytosis Not Reportable 11/19/20 07:08 Microcytosis Not Reportable 11/19/20 07:08 Macrocytosis Not Reportable 11/19/20 07:08 Spherocytes Not Reportable 11/19/20 07:08 Pappenheimer Bodies Not Reportable 11/19/20 07:08 Sickle Cells Not Reportable 11/19/20 07:08 Target Cells Not Reportable 11/19/20 07:08 Tear Drop Cells Not Reportable 11/19/20 07:08 Ovalocytes Not Reportable 11/19/20 07:08 Helmet Cells Not Reportable 11/19/20 07:08 Galvan-[place] Bodies Not Reportable 11/19/20 07:08 Rhome Rings Not Reportable 11/19/20 07:08 Luis Cells Not Reportable 11/19/20 07:08 Bite Cells Not Reportable 11/19/20 07:08 Crenated Cell Not Reportable 11/19/20 07:08 Elliptocytes Not Reportable 11/19/20 07:08 Acanthocytes (Spur) Not Reportable 11/19/20 07:08 Rouleaux Not Reportable 11/19/20 07:08 Hemoglobin C Crystals Not Reportable 11/19/20 07:08 Schistocytes Not Reportable 11/19/20 07:08 Malaria parasites Not Reportable 11/19/20 07:08 Felice Bodies Not Reportable 11/19/20 07:08 Hem Pathologist Commnt No 11/19/20 07:08 PT 16.6 Sec. (12.2-14.9) H 11/22/20 08:00 INR 1.36 (0.87-1.13) H 11/22/20 08:00 APTT 23.1 Sec. (24.2-36.6) L 11/14/20 16:23 D-Dimer 2876.26 ng/mlDDU (0-234) H 11/14/20 18:30 VBG pH 7.216 (7.320-7.420) L 11/14/20 16:23 Sodium 144 mmol/L (137-145) 11/23/20 09:23 Potassium 4.0 mmol/L (3.6-5.0) 11/23/20 09:23 Chloride 110.7 mmol/L (98-107) H 11/23/20 09:23 Carbon Dioxide 19 mmol/L (22-30) L 11/23/20 09:23 Anion Gap 18 mmol/L 11/23/20 09:23 BUN 59 mg/dL (7-17) H 11/23/20 09:23 Creatinine 3.1 mg/dL (0.6-1.2) H 11/23/20 09:23 Estimated GFR 16 ml/min 11/23/20 09:23 BUN/Creatinine Ratio 19 % 11/23/20 09:23 Glucose 128 mg/dL (65-100) H 11/23/20 09:23 POC Glucose 111 mg/dL (70-105) H 11/23/20 08:45 Hemoglobin A1c 10.8 % (4-6) H 11/15/20 10:15 Ketones Quantitative Moderate (Negative) 11/14/20 16:23 Osmolality 348 Mosm/kg 11/20/20 10:41 Lactic Acid 1.60 mmol/L (0.7-2.0) 11/15/20 06:18 Calcium 7.9 mg/dL (8.4-10.2) L 11/23/20 09:23 Phosphorus 3.90 mg/dL (2.5-4.5) 11/20/20 10:41 Magnesium 2.20 mg/dL (1.7-2.3) 11/14/20 18:22 Ferritin 623.7 ng/mL (10.0-200.0) H 11/14/20 18:30 Total Bilirubin < 0.20 mg/dL (0.1-1.2) 11/15/20 06:18 Direct Bilirubin < 0.2 mg/dL (0-0.2) 11/14/20 16:23 Indirect Bilirubin 0.0 mg/dL 11/14/20 16:23 AST 27 units/L (5-40) 11/15/20 06:18 ALT 20 units/L (7-56) 11/15/20 06:18 Alkaline Phosphatase 184 units/L (35-129) H 11/15/20 06:18 Lactate Dehydrogenase 247 units/L (91-180) H 11/14/20 18:30 Total Creatine Kinase 44 units/L (30-135) 11/20/20 10:41 Troponin T < 0.010 ng/mL (0.00-0.029) 11/14/20 16:23 C-Reactive Protein 52.00 mg/dL (0.00-1.30) H 11/14/20 18:30 Total Protein 5.8 g/dL (6.3-8.2) L D 11/15/20 06:18 Albumin 2.5 g/dL (3.9-5) L 11/15/20 06:18 Albumin/Globulin Ratio 0.8 % 11/15/20 06:18 Procalcitonin 30.66 ng/mL (<0.15) 11/14/20 18:30 Urine Color Yellow (Yellow) 11/17/20 20:20 Urine Turbidity Cloudy (Clear) 11/17/20 20:20 Urine pH 5.0 (5.0-7.0) 11/17/20 20:20 Ur Specific Delta 1.015 (1.003-1.030) 11/17/20 20:20 Urine Protein 100 mg/dl mg/dL (Negative) 11/17/20 20:20 Urine Glucose (UA) 150 mg/dL (Negative) 11/17/20 20:20 Urine Ketones Neg mg/dL (Negative) 11/17/20 20:20 Urine Blood Mod (Negative) 11/17/20 20:20 Urine Nitrite Neg (Negative) 11/17/20 20:20 Urine Bilirubin Neg (Negative) 11/17/20 20:20 Urine Urobilinogen < 2.0 mg/dL (<2.0) 11/17/20 20:20 Ur Leukocyte Esterase Mod (Negative) 11/17/20 20:20 Urine WBC (Auto) 66.0 /HPF (0.0-6.0) H 11/17/20 20:20 Urine RBC (Auto) 59.0 /HPF (0.0-6.0) 11/17/20 20:20 U Epithel Cells (Auto) 1.0 /HPF (0-13.0) 11/17/20 20:20 Urine Bacteria (Auto) 1+ /HPF (Negative) 11/17/20 20:20 Urine Yeast (Budding) 3+ /HPF 11/17/20 20:20 Urine Creatinine 67.2 mg/dL (0.1-20.0) H 11/17/20 20:20 Urine Sodium 74 mmol/L 11/17/20 20:20 Coronavirus (PCR) Negative (Negative) 11/17/20 11:02 Verma/IV: Voiding Method Condom Catheter Active Medications - Current Medications Current Medications: Generic Name Dose Route Start Last Admin Trade Name Freq PRN Reason Stop Dose Admin Acetaminophen 650 mg 04/29/21 18:37 11/16/20 17:23 Acetaminophen 325 Mg Tab PO 650 mg Q6H PRN Administration Pain, Mild (1-3) Lipase/Protease/Amylase 1 each 11/22/20 16:13 Lipase 10,500/Protease 25,000/Amylase 43,750 (Units) Dr Braun FEEDTUBE PRN PRN For Clogged Feeding Tube Citalopram Hydrobromide 20 mg 11/16/20 10:00 11/22/20 16:33 Citalopram 20 Mg Tab PO Not Given QDAY SHAHLA Dextrose 50 ml 11/15/20 10:20 Dextrose 50% In Water (25gm) 50 Ml Syringe IV Q30MIN PRN Hypoglycemia Protocol Famotidine 20 mg 11/16/20 10:00 11/22/20 16:33 Famotidine 20 Mg Tab PO Not Given QDAY SHAHLA Heparin Sodium (Porcine) 5,000 unit 11/15/20 22:00 11/22/20 23:05 Heparin 5,000 Unit/1 Ml Vial SUB-Q 5,000 unit Q12HR SHAHLA Administration Dextrose 1,000 mls @ 30 mls/hr 11/16/20 11:00 11/23/20 04:54 D5w IV 30 mls/hr DIRECT SHAHLA Administration Lactated Ringer's 1,000 mls @ 42 mls/hr 11/22/20 13:20 11/22/20 13:20 Lactated Ringers IV 42 mls/hr DIRECT SHAHLA Administration Insulin Glargine 30 units 11/22/20 13:08 11/22/20 23:07 Insulin Glargine 100 Units/Ml SUB-Q Not Given QHS SHAHLA Insulin Human Lispro 0 unit 11/15/20 11:30 11/23/20 08:49 Insulin Lispro 100 Unit/Ml SUB-Q Not Given ACHS [facility] Protocol Ondansetron HCl 4 mg 11/22/20 13:59 Ondansetron 4 Mg/2 Ml Inj IV ONCE PRN Nausea And Vomiting Oxycodone/Acetaminophen 1 tab 11/15/20 11:45 11/19/20 22:18 Oxycodone /Acetaminophen 5-325mg Tab PO 1 tab Q4H PRN Administration Pain, Moderate (4-6) Pravastatin Sodium 40 mg 11/15/20 22:00 11/22/20 23:06 Pravastatin 40 Mg Tab PO 40 mg QHS SHAHLA Administration Simple Syrup 15 ml 11/22/20 16:13 Simple Syrup 15 Ml FEEDTUBE PRN PRN Hypoglycemia Simple Syrup 30 ml 11/22/20 16:13 Simple Syrup 15 Ml FEEDTUBE PRN PRN Hypoglycemia Sodium Bicarbonate 325 mg 11/22/20 16:13 Sodium Bicarbonate 325 Mg Tab FEEDTUBE PRN PRN For Clogged Feeding Tube Sodium Chloride 10 ml 11/14/20 22:00 11/22/20 23:06 Sodium Chloride 0.9% 10 Ml Flush Syringe IV 10 ml BID SHAHLA Administration Sodium Chloride 10 ml 11/14/20 18:33 Sodium Chloride 0.9% 10 Ml Flush Syringe IV PRN PRN LINE FLUSH Nutrition/Malnutrition Assess - Dietary Evaluation Nutrition/Malnutrition Findings: Nutrition Notes Start: 11/15/20 10:28 Freq: Status: Active Protocol: Document 11/22/20 09:15 (Rec: 11/22/20 09:20 [id number]) Nutrition Notes Initial or Follow up Reassessment Current Diagnosis Acute Kidney Injury,Diabetes, Sepsis,Hyperlipidemia Other Pertinent Diagnosis UTI, bilat pneu, vascular dementia, depression, r/o COVID-19 Current Diet Glucerna 1.2 at 58 ml/hr Labs/Tests BUN 71 Cr 3.6 Pertinent Medications D5w at 50 ml/hr Height 5 ft 4 in Weight 46.8 kg [place] Body Weight (kg) 54.54 BMI 17.6 Weight Status Underweight Subjective/Other Information FU for TF tolerance. Pt NPO for PEG. Burn Absent Trauma Absent Current % PO Negligible Minimum of two criteria No #1 Nutrition Diagnosis Inadequate oral intake Diagnosis Progress(for reassessment Continues documentation) Is patient on ventilator? No Is Patient Ambulatory and/or Out of Bed No REE-([facility]-confined to bed) 1262.316 Kcal/Kg value to use for calculation 36 Approximate Energy Requirements Using 1685 kcal/Kg Calculation Used for Recommendations Kcal/kg Additional Notes PRO needs: 56-70g (1.2-1.5g/kg ) Fluids: 1 mL/kcal or per MD Nutrition Intervention Change Diet Order: Resume TF at lower rate when medically able Nutrition Support: Glucerna 1.2 at 50 mL/hr. Flush with 200 mL q4h for hypernatremia. Flush with 75 ml q4h Kcal 1,440 Protein (gm) 72 Fluid (mL) 966 Goal #1 Initiate TF Goal #2 Weight maintenance/weight gain Anticipated Discharge Needs: TF Glucerna 1.2 at 50 mL/hr. Flush 75 ml q4h Follow-Up By: 11/25/20 Additional Comments FU for TF restart and renal labs - Malnutrition Assessment Minimum of two criteria: Yes - Attestation Statement I have reviewed and agreed w/ Malnutrition eval & tx plan: Yes
--- NOTE | 2020-11-23 11:01 | Progress Note ---
Assessment and Plan 55-year-old female status post laparoscopic assisted PEG tube placement for dysphagia Plan: 1. May adv to TF to goal 2. Check residuals as per protocol 3. Will s/o Thank you for this consultation. Please call with any questions or concerns. Evaluation and treatment of this patient was during the time of the national and state emergency arising from COVID19 coronavirus pandemic. Treatment and procedures performed meet the current and available best practice and guidelines for patient during the COVID pandemic. Subjective Date of service: 11/23/20 Narrative: Patient seen and examined. No overnight events. Tolerating tube feeds at 10 cc an hour. Objective Vital Signs - 12hr 11/23/20 11/23/20 11/23/20 04:37 09:14 10:00 Temperature 98.2 F Pulse Rate 63 65 Respiratory 18 Rate Blood Pressure 106/59 O2 Sat by Pulse 100 99 Oximetry - General physical appearance Narrative Exam: Gen.: Awake, alert, nonverbal. No apparent distress ENT: Trachea midline. No lymphadenopathy. No scleral icterus or conjunctival pallor CV: S1, S2 present Respiratory: No audible wheezes Abdomen: Soft, nondistended, nontender. PEG tube in place with bumper at 2 cm at the skin. The site is clean, dry, intact. Abdominal binder in place. No rebound, rigidity, guarding Extremities: No clubbing, cyanosis, edema - Labs 11/22/20 08:00 11/23/20 09:23 Diabetes panel 11/23/20 11/23/20 Range/Units 07:25 09:23 Sodium 143 144 (137-145) mmol/L Potassium 3.7 4.0 (3.6-5.0) mmol/L Chloride 110.6 H 110.7 H (98-107) mmol/L Carbon Dioxide 21 L 19 L (22-30) mmol/L BUN 61 H 59 H (7-17) mg/dL Creatinine 3.2 H 3.1 H (0.6-1.2) mg/dL Glucose 129 H 128 H (65-100) mg/dL Calcium 7.8 L 7.9 L (8.4-10.2) mg/dL Calcium panel 11/23/20 11/23/20 Range/Units 07:25 09:23 Calcium 7.8 L 7.9 L (8.4-10.2) mg/dL Pituitary panel 11/23/20 11/23/20 Range/Units 07:25 09:23 Sodium 143 144 (137-145) mmol/L Potassium 3.7 4.0 (3.6-5.0) mmol/L Chloride 110.6 H 110.7 H (98-107) mmol/L Carbon Dioxide 21 L 19 L (22-30) mmol/L BUN 61 H 59 H (7-17) mg/dL Creatinine 3.2 H 3.1 H (0.6-1.2) mg/dL Glucose 129 H 128 H (65-100) mg/dL Calcium 7.8 L 7.9 L (8.4-10.2) mg/dL Adrenal panel 11/23/20 11/23/20 Range/Units 07:25 09:23 Sodium 143 144 (137-145) mmol/L Potassium 3.7 4.0 (3.6-5.0) mmol/L Chloride 110.6 H 110.7 H (98-107) mmol/L Carbon Dioxide 21 L 19 L (22-30) mmol/L BUN 61 H 59 H (7-17) mg/dL Creatinine 3.2 H 3.1 H (0.6-1.2) mg/dL Glucose 129 H 128 H (65-100) mg/dL Calcium 7.8 L 7.9 L (8.4-10.2) mg/dL
--- NOTE | 2020-11-23 16:19 | Progress Note ---
Assessment and Plan Acute hypoxemic respiratory failure. Severe sepsis. Diabetic ketoacidosis. Acute kidney injury. Pneumonia. Acute on chronic toxic metabolic encephalopathy. PUI COVID-19 infection. Possible urinary tract infection. Adult failure to thrive s/p PEG History of diabetes. History of hyperlipidemia. -s/p PEG placement, tolerating tube feeding. -Aspiration precautions - continue to wean supplemental oxygen to keep O2 sats > 90% - Bronchodilators (JOANNA) with pulm hygiene per RT - continue to avoid nephrotoxins, dose all medications for GFR and CrCL - continue mobility , off loading and turning per facility protocol to prevent pressure ulcers - PT/OT as tolerated - Wound care per RN/WCT - continue accuchecks with glycemic control per SSI for target blood glucose < 180 mg/dL - Continue with VTE prophylaxis - Flu & pneumovax per protocol - continue other care per attending / other consultants -Discharge planning Subjective Date of service: 11/23/20 Principal diagnosis: Ac hypoxemic resp failure; Sepsis; DKA; RACH; Pneumonia; PUI COVID-19 Interval history: Patient is seen today for: Acute hypoxemic respiratory failure; Severe sepsis; DKA; RACH; Pneumonia; PUI COVID-19 Seen and examined at bedside; 24hour events reviewed; nursing and respiratory care staff consulted; no adverse overnight events reported to me; resting peacefully in bed; s/p PEG placement yesterday, uneventful procedure. Tolerating tube feedings, on 2L NC; no emesis or overt aspiration Objective Vital Signs - 12hr 11/23/20 11/23/20 11/23/20 04:37 09:14 10:00 Temperature 98.2 F Pulse Rate 63 65 Respiratory 18 Rate Blood Pressure 106/59 O2 Sat by Pulse 100 99 Oximetry 11/23/20 11:45 Temperature 97.7 F Pulse Rate 67 Respiratory 16 Rate Blood Pressure 109/60 O2 Sat by Pulse 98 Oximetry Constitutional: no acute distress Eyes: non-icteric ENT: oropharynx moist, other (very poor dentition) Neck: supple, no lymphadenopathy, no JVD Effort: normal Ascultation: Bilateral: diminished breath sounds, rhonchi Percussion: Bilateral: not dull Cardiovascular: regular rate and rhythm, other (S1,S2) Gastrointestinal: normoactive bowel sounds, soft, non-tender, non-distended, other (PEG in place) Integumentary: other (see [facility] notes) Extremities: no cyanosis, no edema, pink and warm, pulses normal Neurologic: pupils equal and round, motor strength normal and, other (+ cognit kelsey dysfunction) Psychiatric: other (+ cognitive dysfunction) CBC and BMP: 11/25/20 07:50 11/25/20 07:50 ABG, PT/INR, D-dimer: PT/INR, D-dimer PT 16.6 Sec. (12.2-14.9) H 11/22/20 08:00 INR 1.36 (0.87-1.13) H 11/22/20 08:00 D-Dimer 2876.26 ng/mlDDU (0-234) H 11/14/20 18:30 Abnormal lab findings: Abnormal Labs 11/14/20 11/14/20 11/14/20 16:23 16:23 16:23 WBC 14.5 H RBC 3.48 L Hgb Hct MCV 101 H RDW Lymph % (Auto) Lymph # (Auto) Seg Neutrophils % Seg Neuts % (Manual) 92.0 H Lymphocytes % (Manual) 5.0 L Seg Neutrophils # Seg Neutrophils # Man 13.3 H Lymphocytes # (Manual) 0.7 L PT 15.3 H INR 1.21 H APTT 23.1 L D-Dimer VBG pH Sodium Potassium Chloride Carbon Dioxide BUN Creatinine Glucose POC Glucose Hemoglobin A1c Lactic Acid 7.50 H* Calcium Phosphorus Ferritin Alkaline Phosphatase Lactate Dehydrogenase C-Reactive Protein Total Protein Albumin Urine WBC (Auto) Urine Creatinine 11/14/20 11/14/20 11/14/20 16:23 16:23 16:27 WBC RBC Hgb Hct MCV RDW Lymph % (Auto) Lymph # (Auto) Seg Neutrophils % Seg Neuts % (Manual) Lymphocytes % (Manual) Seg Neutrophils # Seg Neutrophils # Man Lymphocytes # (Manual) PT INR APTT D-Dimer VBG pH 7.216 L Sodium 166 H* Potassium Chloride 120.8 H Carbon Dioxide 6 L* BUN 36 H Creatinine 1.9 H Glucose 765 H* POC Glucose Hemoglobin A1c Lactic Acid Calcium 11.4 H Phosphorus Ferritin Alkaline Phosphatase 259 H Lactate Dehydrogenase C-Reactive Protein Total Protein Albumin 3.3 L Urine WBC (Auto) 38.0 H Urine Creatinine 11/14/20 11/14/20 11/14/20 18:22 18:22 18:22 WBC RBC Hgb Hct MCV RDW Lymph % (Auto) Lymph # (Auto) Seg Neutrophils % Seg Neuts % (Manual) Lymphocytes % (Manual) Seg Neutrophils # Seg Neutrophils # Man Lymphocytes # (Manual) PT INR APTT D-Dimer VBG pH Sodium Potassium Chloride Carbon Dioxide 11 L BUN 32 H Creatinine 1.5 H Glucose 695 H* POC Glucose Hemoglobin A1c Lactic Acid 2.60 H* Calcium Phosphorus 1.30 L Ferritin Alkaline Phosphatase Lactate Dehydrogenase C-Reactive Protein Total Protein Albumin Urine WBC (Auto) Urine Creatinine 11/14/20 11/14/20 11/14/20 18:30 18:30 18:30 WBC RBC Hgb Hct MCV RDW Lymph % (Auto) Lymph # (Auto) Seg Neutrophils % Seg Neuts % (Manual) Lymphocytes % (Manual) Seg Neutrophils # Seg Neutrophils # Man Lymphocytes # (Manual) PT INR APTT D-Dimer 2876.26 H VBG pH Sodium Potassium Chloride Carbon Dioxide BUN Creatinine Glucose POC Glucose Hemoglobin A1c Lactic Acid Calcium Phosphorus Ferritin 623.7 H Alkaline Phosphatase Lactate Dehydrogenase 247 H C-Reactive Protein 52.00 H Total Protein Albumin Urine WBC (Auto) Urine Creatinine 11/14/20 11/14/20 11/14/20 20:23 23:08 23:08 WBC RBC Hgb Hct MCV RDW Lymph % (Auto) Lymph # (Auto) Seg Neutrophils % Seg Neuts % (Manual) Lymphocytes % (Manual) Seg Neutrophils # Seg Neutrophils # Man Lymphocytes # (Manual) PT INR APTT D-Dimer VBG pH Sodium Potassium 2.6 L* D Chloride 109.4 H Carbon Dioxide 8 L* 10 L BUN 33 H 32 H Creatinine 1.6 H < 0.2 L D Glucose 753 H* 509 H* POC Glucose Hemoglobin A1c Lactic Acid 5.70 H* Calcium Phosphorus Ferritin Alkaline Phosphatase Lactate Dehydrogenase C-Reactive Protein Total Protein Albumin Urine WBC (Auto) Urine Creatinine 11/14/20 11/15/20 11/15/20 23:14 00:01 00:54 WBC RBC Hgb Hct MCV RDW Lymph % (Auto) Lymph # (Auto) Seg Neutrophils % Seg Neuts % (Manual) Lymphocytes % (Manual) Seg Neutrophils # Seg Neutrophils # Man Lymphocytes # (Manual) PT INR APTT D-Dimer VBG pH Sodium Potassium Chloride Carbon Dioxide BUN Creatinine Glucose POC Glucose 427 H 375 H 280 H Hemoglobin A1c Lactic Acid Calcium Phosphorus Ferritin Alkaline Phosphatase Lactate Dehydrogenase C-Reactive Protein Total Protein Albumin Urine WBC (Auto) Urine Creatinine 11/15/20 11/15/20 11/15/20 01:58 02:56 04:53 WBC RBC Hgb Hct MCV RDW Lymph % (Auto) Lymph # (Auto) Seg Neutrophils % Seg Neuts % (Manual) Lymphocytes % (Manual) Seg Neutrophils # Seg Neutrophils # Man Lymphocytes # (Manual) PT INR APTT D-Dimer VBG pH Sodium Potassium Chloride Carbon Dioxide BUN Creatinine Glucose POC Glucose 191 H 124 H 140 H Hemoglobin A1c Lactic Acid Calcium Phosphorus Ferritin Alkaline Phosphatase Lactate Dehydrogenase C-Reactive Protein Total Protein Albumin Urine WBC (Auto) Urine Creatinine 11/15/20 11/15/20 11/15/20 06:18 06:18 06:18 WBC RBC 2.74 L Hgb 8.9 L Hct 26.1 L D MCV RDW 12.8 L Lymph % (Auto) Lymph # (Auto) Seg Neutrophils % Seg Neuts % (Manual) 81.0 H Lymphocytes % (Manual) Seg Neutrophils # Seg Neutrophils # Man 8.7 H Lymphocytes # (Manual) PT INR APTT D-Dimer VBG pH Sodium 149 H 149 H Potassium Chloride 116.2 H 117.4 H Carbon Dioxide 20 L D 20 L BUN 33 H 32 H Creatinine 1.6 H D 1.6 H Glucose 236 H 231 H POC Glucose Hemoglobin A1c Lactic Acid Calcium Phosphorus Ferritin Alkaline Phosphatase 184 H Lactate Dehydrogenase C-Reactive Protein Total Protein 5.8 L D Albumin 2.5 L Urine WBC (Auto) Urine Creatinine 11/15/20 11/15/20 11/15/20 06:24 10:15 10:18 WBC RBC Hgb Hct MCV RDW Lymph % (Auto) Lymph # (Auto) Seg Neutrophils % Seg Neuts % (Manual) Lymphocytes % (Manual) Seg Neutrophils # Seg Neutrophils # Man Lymphocytes # (Manual) PT INR APTT D-Dimer VBG pH Sodium 148 H Potassium Chloride 116.4 H Carbon Dioxide 19 L BUN 33 H Creatinine 1.8 H Glucose 133 H POC Glucose 223 H Hemoglobin A1c 10.8 H Lactic Acid Calcium Phosphorus Ferritin Alkaline Phosphatase Lactate Dehydrogenase C-Reactive Protein Total Protein Albumin Urine WBC (Auto) Urine Creatinine 11/15/20 11/15/20 11/15/20 12:20 17:44 18:31 WBC RBC Hgb Hct MCV RDW Lymph % (Auto) Lymph # (Auto) Seg Neutrophils % Seg Neuts % (Manual) Lymphocytes % (Manual) Seg Neutrophils # Seg Neutrophils # Man Lymphocytes # (Manual) PT INR APTT D-Dimer VBG pH Sodium 149 H Potassium Chloride 114.2 H Carbon Dioxide 15 L BUN 37 H Creatinine 2.0 H Glucose 400 H POC Glucose 266 H 350 H Hemoglobin A1c Lactic Acid Calcium Phosphorus Ferritin Alkaline Phosphatase Lactate Dehydrogenase C-Reactive Protein Total Protein Albumin Urine WBC (Auto) Urine Creatinine 11/15/20 11/16/20 11/16/20 21:40 07:00 07:56 WBC RBC Hgb Hct MCV RDW Lymph % (Auto) Lymph # (Auto) Seg Neutrophils % Seg Neuts % (Manual) Lymphocytes % (Manual) Seg Neutrophils # Seg Neutrophils # Man Lymphocytes # (Manual) PT INR APTT D-Dimer VBG pH Sodium 152 H Potassium Chloride 118.9 H Carbon Dioxide 17 L BUN 43 H Creatinine 2.7 H Glucose 204 H POC Glucose 195 H 222 H Hemoglobin A1c Lactic Acid Calcium 8.0 L Phosphorus 4.70 H D Ferritin Alkaline Phosphatase Lactate Dehydrogenase C-Reactive Protein Total Protein Albumin Urine WBC (Auto) Urine Creatinine 11/16/20 11/16/20 11/16/20 11:40 17:06 21:07 WBC RBC Hgb Hct MCV RDW Lymph % (Auto) Lymph # (Auto) Seg Neutrophils % Seg Neuts % (Manual) Lymphocytes % (Manual) Seg Neutrophils # Seg Neutrophils # Man Lymphocytes # (Manual) PT INR APTT D-Dimer VBG pH Sodium Potassium Chloride Carbon Dioxide BUN Creatinine Glucose POC Glucose 201 H 315 H 230 H Hemoglobin A1c Lactic Acid Calcium Phosphorus Ferritin Alkaline Phosphatase Lactate Dehydrogenase C-Reactive Protein Total Protein Albumin Urine WBC (Auto) Urine Creatinine 11/17/20 11/17/20 11/17/20 07:57 10:30 11:17 WBC RBC Hgb Hct MCV RDW Lymph % (Auto) Lymph # (Auto) Seg Neutrophils % Seg Neuts % (Manual) Lymphocytes % (Manual) Seg Neutrophils # Seg Neutrophils # Man Lymphocytes # (Manual) PT INR APTT D-Dimer VBG pH Sodium 153 H Potassium 3.4 L Chloride 122.1 H Carbon Dioxide 19 L BUN 54 H Creatinine 3.6 H Glucose 108 H POC Glucose 253 H 106 H Hemoglobin A1c Lactic Acid Calcium Phosphorus Ferritin Alkaline Phosphatase Lactate Dehydrogenase C-Reactive Protein Total Protein Albumin Urine WBC (Auto) Urine Creatinine 05/09/0811/17/20 11/17/20 16:00 20:20 20:20 WBC RBC Hgb Hct MCV RDW Lymph % (Auto) Lymph # (Auto) Seg Neutrophils % Seg Neuts % (Manual) Lymphocytes % (Manual) Seg Neutrophils # Seg Neutrophils # Man Lymphocytes # (Manual) PT INR APTT D-Dimer VBG pH Sodium Potassium Chloride Carbon Dioxide BUN Creatinine Glucose POC Glucose 198 H Hemoglobin A1c Lactic Acid Calcium Phosphorus Ferritin Alkaline Phosphatase Lactate Dehydrogenase C-Reactive Protein Total Protein Albumin Urine WBC (Auto) 66.0 H Urine Creatinine 67.2 H 11/17/20 11/18/20 11/18/20 21:23 07:43 09:23 WBC 21.0 H RBC 2.97 L Hgb 9.1 L Hct 28.0 L MCV RDW Lymph % (Auto) Lymph # (Auto) Seg Neutrophils % Seg Neuts % (Manual) 89.0 H Lymphocytes % (Manual) 6.0 L Seg Neutrophils # Seg Neutrophils # Man 18.7 H Lymphocytes # (Manual) PT INR APTT D-Dimer VBG pH Sodium Potassium Chloride Carbon Dioxide BUN Creatinine Glucose POC Glucose 193 H 181 H Hemoglobin A1c Lactic Acid Calcium Phosphorus Ferritin Alkaline Phosphatase Lactate Dehydrogenase C-Reactive Protein Total Protein Albumin Urine WBC (Auto) Urine Creatinine 11/18/20 11/18/20 11/18/20 09:23 12:54 16:20 WBC RBC Hgb Hct MCV RDW Lymph % (Auto) Lymph # (Auto) Seg Neutrophils % Seg Neuts % (Manual) Lymphocytes % (Manual) Seg Neutrophils # Seg Neutrophils # Man Lymphocytes # (Manual) PT INR APTT D-Dimer VBG pH Sodium 152 H Potassium Chloride 119.1 H Carbon Dioxide 19 L BUN 62 H Creatinine 3.9 H Glucose 224 H POC Glucose 297 H 340 H Hemoglobin A1c Lactic Acid Calcium 8.1 L Phosphorus Ferritin Alkaline Phosphatase Lactate Dehydrogenase C-Reactive Protein Total Protein Albumin Urine WBC (Auto) Urine Creatinine 11/18/20 11/19/20 11/19/20 21:28 07:08 07:08 WBC 15.4 H RBC 2.85 L Hgb 8.7 L Hct 26.5 L MCV RDW Lymph % (Auto) Lymph # (Auto) Seg Neutrophils % Seg Neuts % (Manual) 94.0 H Lymphocytes % (Manual) 5.0 L Seg Neutrophils # Seg Neutrophils # Man 14.5 H Lymphocytes # (Manual) 0.8 L PT INR APTT D-Dimer VBG pH Sodium 150 H Potassium Chloride 119.5 H Carbon Dioxide 17 L BUN 69 H Creatinine 4.0 H Glucose 274 H POC Glucose 305 H Hemoglobin A1c Lactic Acid Calcium 8.3 L Phosphorus Ferritin Alkaline Phosphatase Lactate Dehydrogenase C-Reactive Protein Total Protein Albumin Urine WBC (Auto) Urine Creatinine 11/19/20 11/19/20 11/20/20 21:35 23:40 07:31 WBC RBC Hgb Hct MCV RDW Lymph % (Auto) Lymph # (Auto) Seg Neutrophils % Seg Neuts % (Manual) Lymphocytes % (Manual) Seg Neutrophils # Seg Neutrophils # Man Lymphocytes # (Manual) PT INR APTT D-Dimer VBG pH Sodium Potassium Chloride Carbon Dioxide BUN Creatinine Glucose POC Glucose 399 H 340 H 269 H Hemoglobin A1c Lactic Acid Calcium Phosphorus Ferritin Alkaline Phosphatase Lactate Dehydrogenase C-Reactive Protein Total Protein Albumin Urine WBC (Auto) Urine Creatinine 11/20/20 11/20/20 11/20/20 10:41 11:27 15:57 WBC RBC Hgb Hct MCV RDW Lymph % (Auto) Lymph # (Auto) Seg Neutrophils % Seg Neuts % (Manual) Lymphocytes % (Manual) Seg Neutrophils # Seg Neutrophils # Man Lymphocytes # (Manual) PT INR APTT D-Dimer VBG pH Sodium 147 H Potassium Chloride 115.6 H Carbon Dioxide 15 L BUN 75 H Creatinine 3.8 H Glucose 266 H POC Glucose 212 H 189 H Hemoglobin A1c Lactic Acid Calcium 8.2 L Phosphorus Ferritin Alkaline Phosphatase Lactate Dehydrogenase C-Reactive Protein Total Protein Albumin Urine WBC (Auto) Urine Creatinine 11/20/20 11/21/20 11/21/20 20:26 05:04 05:04 WBC 14.2 H RBC 2.48 L Hgb 7.9 L Hct 23.3 L MCV RDW Lymph % (Auto) 10.4 L Lymph # (Auto) Seg Neutrophils % 85.3 H Seg Neuts % (Manual) Lymphocytes % (Manual) Seg Neutrophils # 12.1 H Seg Neutrophils # Man Lymphocytes # (Manual) PT INR APTT D-Dimer VBG pH Sodium Potassium Chloride 115.1 H Carbon Dioxide 17 L BUN 71 H Creatinine 3.6 H Glucose 249 H POC Glucose 200 H Hemoglobin A1c Lactic Acid Calcium 7.7 L Phosphorus Ferritin Alkaline Phosphatase Lactate Dehydrogenase C-Reactive Protein Total Protein Albumin Urine WBC (Auto) Urine Creatinine 11/21/20 11/21/20 11/21/20 07:49 11:42 16:15 WBC RBC Hgb Hct MCV RDW Lymph % (Auto) Lymph # (Auto) Seg Neutrophils % Seg Neuts % (Manual) Lymphocytes % (Manual) Seg Neutrophils # Seg Neutrophils # Man Lymphocytes # (Manual) PT INR APTT D-Dimer VBG pH Sodium Potassium Chloride Carbon Dioxide BUN Creatinine Glucose POC Glucose 241 H 285 H 282 H Hemoglobin A1c Lactic Acid Calcium Phosphorus Ferritin Alkaline Phosphatase Lactate Dehydrogenase C-Reactive Protein Total Protein Albumin Urine WBC (Auto) Urine Creatinine 11/21/20 11/22/20 11/22/20 20:50 07:57 08:00 WBC RBC 2.83 L Hgb 8.7 L Hct 27.3 L MCV RDW Lymph % (Auto) 10.2 L Lymph # (Auto) 1.1 L Seg Neutrophils % 84.6 H Seg Neuts % (Manual) Lymphocytes % (Manual) Seg Neutrophils # 9.0 H Seg Neutrophils # Man Lymphocytes # (Manual) PT INR APTT D-Dimer VBG pH Sodium Potassium Chloride Carbon Dioxide BUN Creatinine Glucose POC Glucose 295 H 345 H Hemoglobin A1c Lactic Acid Calcium Phosphorus Ferritin Alkaline Phosphatase Lactate Dehydrogenase C-Reactive Protein Total Protein Albumin Urine WBC (Auto) Urine Creatinine 11/22/20 11/22/20 11/22/20 08:00 08:00 11:04 WBC RBC Hgb Hct MCV RDW Lymph % (Auto) Lymph # (Auto) Seg Neutrophils % Seg Neuts % (Manual) Lymphocytes % (Manual) Seg Neutrophils # Seg Neutrophils # Man Lymphocytes # (Manual) PT 16.6 H INR 1.36 H APTT D-Dimer VBG pH Sodium Potassium Chloride 111.7 H Carbon Dioxide 17 L BUN 68 H Creatinine 3.4 H Glucose 398 H POC Glucose 367 H Hemoglobin A1c Lactic Acid Calcium 7.5 L Phosphorus Ferritin Alkaline Phosphatase Lactate Dehydrogenase C-Reactive Protein Total Protein Albumin Urine WBC (Auto) Urine Creatinine 11/22/20 11/22/20 11/22/20 13:38 14:39 16:33 WBC RBC Hgb Hct MCV RDW Lymph % (Auto) Lymph # (Auto) Seg Neutrophils % Seg Neuts % (Manual) Lymphocytes % (Manual) Seg Neutrophils # Seg Neutrophils # Man Lymphocytes # (Manual) PT INR APTT D-Dimer VBG pH Sodium Potassium Chloride Carbon Dioxide BUN Creatinine Glucose POC Glucose 371 H 365 H 243 H Hemoglobin A1c Lactic Acid Calcium Phosphorus Ferritin Alkaline Phosphatase Lactate Dehydrogenase C-Reactive Protein Total Protein Albumin Urine WBC (Auto) Urine Creatinine 11/22/20 11/22/20 11/23/20 17:40 21:38 07:25 WBC RBC Hgb Hct MCV RDW Lymph % (Auto) Lymph # (Auto) Seg Neutrophils % Seg Neuts % (Manual) Lymphocytes % (Manual) Seg Neutrophils # Seg Neutrophils # Man Lymphocytes # (Manual) PT INR APTT D-Dimer VBG pH Sodium Potassium Chloride 110.6 H Carbon Dioxide 21 L BUN 61 H Creatinine 3.2 H Glucose 129 H POC Glucose 213 H 106 H Hemoglobin A1c Lactic Acid Calcium 7.8 L Phosphorus Ferritin Alkaline Phosphatase Lactate Dehydrogenase C-Reactive Protein Total Protein Albumin Urine WBC (Auto) Urine Creatinine 11/23/20 11/23/20 11/23/20 07:53 08:45 09:23 WBC RBC Hgb Hct MCV RDW Lymph % (Auto) Lymph # (Auto) Seg Neutrophils % Seg Neuts % (Manual) Lymphocytes % (Manual) Seg Neutrophils # Seg Neutrophils # Man Lymphocytes # (Manual) PT INR APTT D-Dimer VBG pH Sodium Potassium Chloride 110.7 H Carbon Dioxide 19 L BUN 59 H Creatinine 3.1 H Glucose 128 H POC Glucose 116 H 111 H Hemoglobin A1c Lactic Acid Calcium 7.9 L Phosphorus Ferritin Alkaline Phosphatase Lactate Dehydrogenase C-Reactive Protein Total Protein Albumin Urine WBC (Auto) Urine Creatinine 11/23/20 11:43 WBC RBC Hgb Hct MCV RDW Lymph % (Auto) Lymph # (Auto) Seg Neutrophils % Seg Neuts % (Manual) Lymphocytes % (Manual) Seg Neutrophils # Seg Neutrophils # Man Lymphocytes # (Manual) PT INR APTT D-Dimer VBG pH Sodium Potassium Chloride Carbon Dioxide BUN Creatinine Glucose POC Glucose 138 H Hemoglobin A1c Lactic Acid Calcium Phosphorus Ferritin Alkaline Phosphatase Lactate Dehydrogenase C-Reactive Protein Total Protein Albumin Urine WBC (Auto) Urine Creatinine Allied health notes reviewed: nursing
[2020-11-23] MEDS: PRAVASTATIN 40 MG TAB PO SCH (21:57)
[2020-11-23] MEDS: INSULIN GLARGINE 100 UNITS/ML SUB-Q SCH (21:58)
[2020-11-24] MEDS: INSULIN LISPRO 100 UNIT/ML SUB-Q SCH ×4 (08:31→22:26)
[2020-11-24 09:27] LABS: Calcium 7.8 mg/dL (8.4-10.2)
[2020-11-24] MEDS: HEPARIN 5,000 UNIT/1 ML VIAL SUB-Q SCH ×2 (10:25→21:14)
[2020-11-24] MEDS: CITALOPRAM 20 MG TAB PO SCH (10:25)
[2020-11-24] MEDS: FAMOTIDINE 20 MG TAB PO SCH (10:25)
--- NOTE | 2020-11-24 10:45 | Progress Note ---
Assessment and Plan Assessment and plan: Assessment and Plan Assessment and plan: This is a 55-year-old female who is a resident of [facility] with vascular dementia, depression, developmental delay, debility, diabetes mellitus, hyperlipidemia, recent COVID 19 infection, chronic kidney disease and recurrent DKA who presents the emergency department on 11/14 with reported confusion and ill-appearing over the past day and hypoglycemia. Evaluation in the emergency department revealed sepsis with tachycardia, febrile to 102.8, tachypnea, lactic acidosis and RACH suspected secondary to urinary tract infection/?covid 19 pna, diabetic ketoacidosis, metabolic acidosis, toxic metabolic encephalopathy, acute kidney injury and hypernatremia. Patient was in sepsis, DKA, follow DKA pathway on insulin drip in ICU, stabilized and transferred to the floor COVID-19 positive, COVID-19 negative, ID following Assessment ; Dysphagia; failed swallow eval For PEG placement, GI consulted sepsis Bilateral pneumonia Urinary tract infection Gingivitis and periodontitis Covid 19 negative DKA-resolved: Uncontrolled diabetes mellitus RACH /worsening renal function nephrology considering hemodialysis Toxic metabolic encephalopathy/multifactorial Hypernaturemia, improving Lactic acidosis, resolved Hypophosphatemia Hypokalemia, resolved Elevated ddimer/venous Doppler negative for DVT Plan; GI consulted for PEG placement, Continue current antibiotics Rocephin, and Flagyl Zithromax discontinued, As recommended by ID Follow cultures Patient needs outpatient dentists evaluation upon discharge Insulin glargine dose increased,Closely monitor blood sugars Follow nephrology evaluation recommendations planning dialysis DVT prophylaxis Heparin renal dose Plan of care reviewed with patient and 11/15: Patient has been transitioned to sliding scale insulin and started on a pured diet. Per SNF patient has completed antibiotic therapy for her mouth. Her leukocytosis, hypernatremia, hyperchloremia, metabolic acidosis have improved. She has worsening kidney function. ID consulted today. 11/16: Continue IV antibiotics of ceftriaxone and azithromycin per ID recommendati ons. Patient has been transitioned from IV insulin drip to long-acting insulin of Lantus 14 units at bedtime. Patient does have acute kidney injury likely secondary to sepsis/ATN +/- vasomotor nephropathy. Creatinine is worse today at 2.7. Consult nephrology for further evaluation. Check CT scan of the abdomen pelvis. 11/17: Continue antibiotics per ID recommendations. Patient appears to have pneumonia and UTI. Blood and urine cultures remain negative x48 hours. Follow- up COVID-[address] scan shows a nonobstructing calculus in the right kidney. Follow-up BMP to assess renal function 11/18: Continue ceftriaxone, itraconazole and azithromycin for sepsis secondary to pneumonia/UTI. Procalcitonin elevated at 30.66. Chest x-ray revealed patchy bilateral infiltrates. Etiology aspiration pneumonia versus COVID-19. COVID-19 PCR pending. Blood and urine cultures remain negative. Nephrology following for acute kidney injury. Creatinine worsened. Follow-up BMP this morning. CT scan negative for obstruction. 11/19/2020; continue current antibiotics per ID COVID-19 test negative, patient is requiring 2 L of nasal cannula oxygen Closely monitor and adjust management as needed Consults and recommendations noted and appreciated 11/20/2020; Dysphagia, failed swallow eval, GI consulted for PEG placement GI recommend laparoscopic /surgical placement of PEG Surgeon Dr. Black consulted, follow clinically Disposition; follow clinically, discharge to SNF when medically stable Follow GI/surgery recommendations for PEG 11/21/20 Patient is going for possible PICC placement today. Patient renal function is improving BUN is 71 and creatinine 3.6. We will continue to monitor the kidney function. Recheck BMP in the morning. Continue Rocephin and metronidazole antibiotic as per ID Discharge plan to SNF when medically stable History Faculty Member recommendation are appreciated Recheck CBC BMP in the morning 11/22/20 Patient is doing okay. Patient is nonverbal. No chest pain no shortness of breath Patient is going for g tube placement today. Patient renal function is improving BUN is 68 and creatinine 3.4. We will continue to monitor the kidney function. Recheck BMP in the morning. Continue Rocephin and metronidazole antibiotic as per ID Discharge plan to SNF when medically stable Recheck BMP in the morning 11/23/20 Patient is seen and examined Patient chart and medications reviewed Patient is sleeping Patient is noncommunicative and cachectic Malnourished Patient is status post PEG tube placement yesterday Renal function is improving. BUN is 59 creatinine 3.1 Continue current management and antibiotic Recheck BMP in the morning Discharge plan to SNF when medically stable 11/24/20 Patient is seen and examined Patient is doing better. WBC is 10.7 hemoglobin 8.7 hematocrit 27.3 Renal function is improving BUN is 59 creatinine 2.8 Patient is a status post PEG placement on PEG feeding. Urine culture is most likely contamination. Continue current management and antibiotic Recheck BMP in the morning. Nephrology follow-up Discharge plan to SNF when medically stable History Interval history: Patient is seen and examined Patient chart and medications reviewed Patient is doing better. No new complaint Patient is noncommunicative and cachectic Malnourished Patient is status post PEG tube placement Vital signs are noted Hospitalist Physical - Constitutional Vitals: Temp Pulse Resp BP Pulse Ox 97.8 F 62 16 110/57 99 11/24/20 04:10 11/24/20 04:10 11/24/20 04:10 11/24/20 04:10 11/24/20 04:10 General appearance: Present: no acute distress, cachectic, disheveled - EENT Eyes: Present: PERRL, EOM intact ENT: hearing intact, clear oral mucosa - Neck Neck: Present: supple - Respiratory Respiratory effort: normal Respiratory: bilateral: diminished - Cardiovascular Rhythm: regular Heart Sounds: Present: S1 & S2 - Extremities Extremities: no ischemia Peripheral Pulses: within normal limits - Abdominal General gastrointestinal: soft, non-tender, non-distended, normal bowel sounds - Integumentary Integumentary: Present: clear, warm, dry - Neurologic Neurologic: CNII-XII intact, moves all extremities HEART Score - HEART Score Troponin: Troponin T < 0.010 ng/mL (0.00-0.029) 11/14/20 16:23 Results - Labs CBC & Chem 7: 11/22/20 08:00 11/24/20 08:34 Labs: Laboratory Last Values WBC 10.7 K/mm3 (4.5-11.0) 11/22/20 08:00 RBC 2.83 M/mm3 (3.65-5.03) L 11/22/20 08:00 Hgb 8.7 gm/dl (10.1-14.3) L 11/22/20 08:00 Hct 27.3 % (30.3-42.9) L 11/22/20 08:00 MCV 97 fl (79-97) 11/22/20 08:00 MCH 31 pg (28-32) 11/22/20 08:00 MCHC 32 % (30-34) 11/22/20 08:00 RDW 14.0 % (13.2-15.2) 11/22/20 08:00 Plt Count 175 K/mm3 (140-440) 11/22/20 08:00 Lymph % (Auto) 10.2 % (13.4-35.0) L 11/22/20 08:00 [place] % (Auto) 4.3 % (0.0-7.3) 11/22/20 08:00 Eos % (Auto) 0.6 % (0.0-4.3) 11/22/20 08:00 Baso % (Auto) 0.3 % (0.0-1.8) 11/22/20 08:00 Lymph # (Auto) 1.1 K/mm3 (1.2-5.4) L 11/22/20 08:00 [place] # (Auto) 0.5 K/mm3 (0.0-0.8) 11/22/20 08:00 Eos # (Auto) 0.1 K/mm3 (0.0-0.4) 11/22/20 08:00 Baso # (Auto) 0.0 K/mm3 (0.0-0.1) 11/22/20 08:00 Add Manual Diff Complete 11/19/20 07:08 Total Counted 100 11/19/20 07:08 Seg Neutrophils % 84.6 % (40.0-70.0) H 11/22/20 08:00 Seg Neuts % (Manual) 94.0 % (40.0-70.0) H 11/19/20 07:08 Band Neutrophils % 1.0 % 11/18/20 09:23 Lymphocytes % (Manual) 5.0 % (13.4-35.0) L 11/19/20 07:08 Monocytes % (Manual) 1.0 % (0.0-7.3) 11/18/20 09:23 Eosinophils % (Manual) 1.0 % (0.0-4.3) 11/19/20 07:08 Metamyelocytes % 1.0 % 11/18/20 09:23 Nucleated RBC % Not Reportable 11/19/20 07:08 Seg Neutrophils # 9.0 K/mm3 (1.8-7.7) H 11/22/20 08:00 Seg Neutrophils # Man 14.5 K/mm3 (1.8-7.7) H 11/19/20 07:08 Band Neutrophils # 0.0 K/mm3 11/19/20 07:08 Lymphocytes # (Manual) 0.8 K/mm3 (1.2-5.4) L 11/19/20 07:08 Abs React Lymphs (Man) 0.0 K/mm3 11/19/20 07:08 Monocytes # (Manual) 0.0 K/mm3 (0.0-0.8) 11/19/20 07:08 Eosinophils # (Manual) 0.2 K/mm3 (0.0-0.4) 11/19/20 07:08 Basophils # (Manual) 0.0 K/mm3 (0.0-0.1) 11/19/20 07:08 Metamyelocytes # 0.0 K/mm3 11/19/20 07:08 Myelocytes # 0.0 K/mm3 11/19/20 07:08 Promyelocytes # 0.0 K/mm3 11/19/20 07:08 Blast Cells # 0.0 K/mm3 11/19/20 07:08 WBC Morphology Not Reportable 11/19/20 07:08 Hypersegmented Neuts Not Reportable 11/19/20 07:08 Hyposegmented Neuts Not Reportable 11/19/20 07:08 Hypogranular Neuts Not Reportable 11/19/20 07:08 Smudge Cells Not Reportable 11/19/20 07:08 Toxic Granulation Not Reportable 11/19/20 07:08 Toxic Vacuolation Not Reportable 11/19/20 07:08 Dohle Bodies Not Reportable 11/19/20 07:08 Pelger-Huet Anomaly Not Reportable 11/19/20 07:08 Jamia Rods Not Reportable 11/19/20 07:08 Platelet Estimate Consistent w auto 11/19/20 07:08 Clumped Platelets Not Reportable 11/19/20 07:08 Plt Clumps, EDTA Not Reportable 11/19/20 07:08 Large Platelets Not Reportable 11/19/20 07:08 Giant Platelets Not Reportable 11/19/20 07:08 Platelet Satelliting Not Reportable 11/19/20 07:08 Plt Morphology Comment Not Reportable 11/19/20 07:08 RBC Morphology Normal 11/19/20 07:08 Dimorphic RBCs Not Reportable 11/19/20 07:08 Polychromasia Not Reportable 11/19/20 07:08 Hypochromasia Not Reportable 11/19/20 07:08 Poikilocytosis Not Reportable 11/19/20 07:08 Anisocytosis Not Reportable 11/19/20 07:08 Microcytosis Not Reportable 11/19/20 07:08 Macrocytosis Not Reportable 11/19/20 07:08 Spherocytes Not Reportable 11/19/20 07:08 Pappenheimer Bodies Not Reportable 11/19/20 07:08 Sickle Cells Not Reportable 11/19/20 07:08 Target Cells Not Reportable 11/19/20 07:08 Tear Drop Cells Not Reportable 11/19/20 07:08 Ovalocytes Not Reportable 11/19/20 07:08 Helmet Cells Not Reportable 11/19/20 07:08 [place] Bodies Not Reportable 11/19/20 07:08 [place] Rings Not Reportable 11/19/20 07:08 Luis Cells Not Reportable 11/19/20 07:08 Bite Cells Not Reportable 11/19/20 07:08 Crenated Cell Not Reportable 11/19/20 07:08 Elliptocytes Not Reportable 11/19/20 07:08 Acanthocytes (Spur) Not Reportable 11/19/20 07:08 Rouleaux Not Reportable 11/19/20 07:08 Hemoglobin C Crystals Not Reportable 11/19/20 07:08 Schistocytes Not Reportable 11/19/20 07:08 Malaria parasites Not Reportable 11/19/20 07:08 Felice Bodies Not Reportable 11/19/20 07:08 Hem Pathologist Commnt No 11/19/20 07:08 PT 16.6 Sec. (12.2-14.9) H 11/22/20 08:00 INR 1.36 (0.87-1.13) H 11/22/20 08:00 APTT 23.1 Sec. (24.2-36.6) L 11/14/20 16:23 D-Dimer 2876.26 ng/mlDDU (0-234) H 11/14/20 18:30 VBG pH 7.216 (7.320-7.420) L 11/14/20 16:23 Sodium 137 mmol/L (137-145) 11/24/20 08:34 Potassium 4.1 mmol/L (3.6-5.0) 11/24/20 08:34 Chloride 106.6 mmol/L (98-107) 11/24/20 08:34 Carbon Dioxide 20 mmol/L (22-30) L 11/24/20 08:34 Anion Gap 15 mmol/L 11/24/20 08:34 BUN 59 mg/dL (7-17) H 11/24/20 08:34 Creatinine 2.8 mg/dL (0.6-1.2) H 11/24/20 08:34 Estimated GFR 18 ml/min 11/24/20 08:34 BUN/Creatinine Ratio 21 % 11/24/20 08:34 Glucose 294 mg/dL (65-100) H 11/24/20 08:34 POC Glucose 269 mg/dL (70-105) H 11/24/20 07:21 Hemoglobin A1c 10.8 % (4-6) H 11/15/20 10:15 Ketones Quantitative Moderate (Negative) 11/14/20 16:23 Osmolality 348 Mosm/kg 11/20/20 10:41 Lactic Acid 1.60 mmol/L (0.7-2.0) 11/15/20 06:18 Calcium 7.8 mg/dL (8.4-10.2) L 11/24/20 08:34 Phosphorus 3.90 mg/dL (2.5-4.5) 11/20/20 10:41 Magnesium 2.20 mg/dL (1.7-2.3) 11/14/20 18:22 Ferritin 623.7 ng/mL (10.0-200.0) H 11/14/20 18:30 Total Bilirubin < 0.20 mg/dL (0.1-1.2) 11/15/20 06:18 Direct Bilirubin < 0.2 mg/dL (0-0.2) 11/14/20 16:23 Indirect Bilirubin 0.0 mg/dL 11/14/20 16:23 AST 27 units/L (5-40) 11/15/20 06:18 ALT 20 units/L (7-56) 11/15/20 06:18 Alkaline Phosphatase 184 units/L (35-129) H 11/15/20 06:18 Lactate Dehydrogenase 247 units/L (91-180) H 11/14/20 18:30 Total Creatine Kinase 44 units/L (30-135) 11/20/20 10:41 Troponin T < 0.010 ng/mL (0.00-0.029) 11/14/20 16:23 C-Reactive Protein 52.00 mg/dL (0.00-1.30) H 11/14/20 18:30 Total Protein 5.8 g/dL (6.3-8.2) L D 11/15/20 06:18 Albumin 2.5 g/dL (3.9-5) L 11/15/20 06:18 Albumin/Globulin Ratio 0.8 % 11/15/20 06:18 Procalcitonin 30.66 ng/mL (<0.15) 11/14/20 18:30 Urine Color Yellow (Yellow) 11/17/20 20:20 Urine Turbidity Cloudy (Clear) 11/17/20 20:20 Urine pH 5.0 (5.0-7.0) 11/17/20 20:20 Ur Specific [place] 1.015 (1.003-1.030) 11/17/20 20:20 Urine Protein 100 mg/dl mg/dL (Negative) 11/17/20 20:20 Urine Glucose (UA) 150 mg/dL (Negative) 11/17/20 20:20 Urine Ketones Neg mg/dL (Negative) 11/17/20 20:20 Urine Blood Mod (Negative) 11/17/20 20:20 Urine Nitrite Neg (Negative) 11/17/20 20:20 Urine Bilirubin Neg (Negative) 11/17/20 20:20 Urine Urobilinogen < 2.0 mg/dL (<2.0) 11/17/20 20:20 Ur Leukocyte Esterase Mod (Negative) 11/17/20 20:20 Urine WBC (Auto) 66.0 /HPF (0.0-6.0) H 11/17/20 20:20 Urine RBC (Auto) 59.0 /HPF (0.0-6.0) 11/17/20 20:20 U Epithel Cells (Auto) 1.0 /HPF (0-13.0) 11/17/20 20:20 Urine Bacteria (Auto) 1+ /HPF (Negative) 11/17/20 20:20 Urine Yeast (Budding) 3+ /HPF 11/17/20 20:20 Urine Creatinine 67.2 mg/dL (0.1-20.0) H 11/17/20 20:20 Urine Sodium 74 mmol/L 11/17/20 20:20 Coronavirus (PCR) Negative (Negative) 11/17/20 11:02 Verma/IV: Voiding Method External Female Catheter Active Medications - Current Medications Current Medications: Generic Name Dose Route Start Last Admin Trade Name Freq PRN Reason Stop Dose Admin Acetaminophen 650 mg 11/14/20 18:37 11/16/20 17:23 Acetaminophen 325 Mg Tab PO 650 mg Q6H PRN Administration Pain, Mild (1-3) Lipase/Protease/Amylase 1 each 11/22/20 16:13 Lipase 10,500/Protease 25,000/Amylase 43,750 (Units) Dr Braun FEEDTUBE PRN PRN For Clogged Feeding Tube Citalopram Hydrobromide 20 mg 11/16/20 10:00 11/24/20 10:25 Citalopram 20 Mg Tab PO 20 mg QDAY SHAHLA Administration Dextrose 50 ml 11/15/20 10:20 Dextrose 50% In Water (25gm) 50 Ml Syringe IV Q30MIN PRN Hypoglycemia Protocol Famotidine 20 mg 11/16/20 10:00 11/24/20 10:25 Famotidine 20 Mg Tab PO 20 mg QDAY SHAHLA Administration Heparin Sodium (Porcine) 5,000 unit 11/15/20 22:00 11/24/20 10:25 Heparin 5,000 Unit/1 Ml Vial SUB-Q 5,000 unit Q12HR SHAHLA Administration Dextrose 1,000 mls @ 30 mls/hr 11/16/20 11:00 11/23/20 04:54 D5w IV 30 mls/hr DIRECT SHAHLA Administration Insulin Glargine 30 units 11/22/20 13:08 11/23/20 21:58 Insulin Glargine 100 Units/Ml SUB-Q 30 units QHS SHAHLA Administration Insulin Human Lispro 0 unit 11/15/20 11:30 11/24/20 08:31 Insulin Lispro 100 Unit/Ml SUB-Q 3 unit ACHS SHAHLA Administration Protocol Ondansetron HCl 4 mg 11/22/20 13:59 Ondansetron 4 Mg/2 Ml Inj IV ONCE PRN Nausea And Vomiting Oxycodone/Acetaminophen 1 tab 11/15/20 11:45 11/19/20 22:18 Oxycodone /Acetaminophen 5-325mg Tab PO 1 tab Q4H PRN Administration Pain, Moderate (4-6) Pravastatin Sodium 40 mg 11/15/20 22:00 11/23/20 21:57 Pravastatin 40 Mg Tab PO 40 mg QHS SHAHLA Administration Simple Syrup 15 ml 11/22/20 16:13 Simple Syrup 15 Ml FEEDTUBE PRN PRN Hypoglycemia Simple Syrup 30 ml 11/22/20 16:13 Simple Syrup 15 Ml FEEDTUBE PRN PRN Hypoglycemia Sodium Bicarbonate 325 mg 11/22/20 16:13 Sodium Bicarbonate 325 Mg Tab FEEDTUBE PRN PRN For Clogged Feeding Tube Sodium Chloride 10 ml 11/14/20 22:00 11/24/20 10:25 Sodium Chloride 0.9% 10 Ml Flush Syringe IV 10 ml BID SHAHLA Administration Sodium Chloride 10 ml 11/14/20 18:33 Sodium Chloride 0.9% 10 Ml Flush Syringe IV PRN PRN LINE FLUSH Nutrition/Malnutrition Assess - Dietary Evaluation Nutrition/Malnutrition Findings: Nutrition Notes Start: 11/15/20 10:28 Freq: Status: Active Protocol: Document 11/24/20 09:50 (Rec: 11/24/20 09:57 [email or web address]) Nutrition Notes Need for Assessment generated from: MD Order Initial or Follow up Reassessment Current Diagnosis Acute Kidney Injury,Diabetes, Sepsis,Hyperlipidemia Other Pertinent Diagnosis UTI, bilat pneu, vascular dementia, depression, r/o COVID-19 Current Diet Glucerna 1.2 at 50 ml/hr Labs/Tests BUN 59 Cr 2.8 BG 294 Pertinent Medications Humalog Lantus D5w at 30 ml/hr Height 5 ft 4 in Weight 46.8 kg [place] Body Weight (kg) 54.54 BMI 17.6 Weight Status Underweight Subjective/Other Information MD order for malnutrition. Pt already being followed. Observed pt with PEG TF running at 50 ml/hr and tolerating. Percent of energy/protein needs met: 88%/100% Burn Absent Trauma Absent Current % PO Negligible Minimum of two criteria No #1 Nutrition Diagnosis Inadequate oral intake Diagnosis Progress(for reassessment Continues documentation) Is patient on ventilator? No Is Patient Ambulatory and/or Out of Bed No REE-([place]-confined to bed) 1262.316 Kcal/Kg value to use for calculation 35 Approximate Energy Requirements Using 1638 kcal/Kg Calculation Used for Recommendations Kcal/kg Additional Notes PRO needs: 56-70g (1.2-1.5g/kg ) Fluids: 1 mL/kcal or per MD Nutrition Intervention Nutrition Support: Glucerna 1.2 at 50 mL/hr. Flush 100 ml q4h per MD Kcal 1,440 Protein (gm) 72 Fluid (mL) 966 Goal #1 Meet at least 75% of protein and energy needs via TF Goal #2 Weight maintenance/weight gain Anticipated Discharge Needs: TF Glucerna 1.2 at 50 mL/hr. Flush 100 ml q4h Follow-Up By: 11/27/20 Additional Comments FU for TF tolerance - Malnutrition Assessment Minimum of two criteria: Yes - Attestation Statement I have reviewed and agreed w/ Malnutrition eval & tx plan: Yes
--- NOTE | 2020-11-24 10:51 | Progress Note ---
Assessment and Plan 1. Acute kidney injury: Vasomotor RACH superimposed on CKD in the setting of sepsis. ATN likely. Renal US and CT abdomen negative for hydro. Monitor renal function. Creatinine level is improving. Renal prognosis is guarded. Avoid nephrotoxic agents. Meds dosage based on GFR. 2. FEN: Hypernatremia, hypotonic IV fluids, monitor. Water flushes. Hyperchloremic metabolic acidosis, on IV D5W, monitor. Monitor lytes and volume status. 3. Sepsis: Likely 2/2 PNA. Covid test negative. Follow cultures. 4. Bilateral PNA: S/p Abx. Covid test negative. 5. DKA: Improved. 6. Dysphagia: S/p PEG placement. 7. Anemia: Monitor. 8. HTN: Monitor BP. 9. Metabolic encephalopathy, POA. - Subjective: Patient was seen and examined at the bedside. - General Appearance: General appearance: appears stated age, not in distress, appears chronically ill HEENT: ATNC, CAITY Neck: Trachea midline Respiratory: coarse breath sounds Cardiology: regular, S1S2, no murmur Gastrointestinal: normoactive bowel sounds, not tender, not distended, PEG tube noted Integumentary: no rash, warm and dry Neurologic: alert, not following any command, non-verbal Ext: no edema Subjective Date of service: 11/24/20 Principal diagnosis: Ac hypoxemic resp failure; Sepsis; DKA; RACH; Pneumonia; PUI COVID-19 Objective - Vital Signs Vital signs: Vital Signs - 12hr 11/24/20 04:10 Temperature 97.8 F Pulse Rate 62 Respiratory 16 Rate Blood Pressure 110/57 O2 Sat by Pulse 99 Oximetry - Lab 11/25/20 07:50 11/25/20 07:50 Most recent lab results Calcium 7.8 mg/dL (8.4-10.2) L 11/24/20 08:34 Phosphorus 3.90 mg/dL (2.5-4.5) 11/20/20 10:41 Magnesium 2.20 mg/dL (1.7-2.3) 11/14/20 18:22 Urine Creatinine 67.2 mg/dL (0.1-20.0) H 11/17/20 20:20 Urine Sodium 74 mmol/L 11/17/20 20:20 Medications & Allergies - Medications Allergies/Adverse Reactions: Allergies No Known Allergies Allergy (Verified 02/26/20 10:24) Home Medications: Home Medications Medication Instructions Recorded Confirmed Last Taken Type Citalopram [Celexa] 20 mg PO QDAY 01/25/20 11/20/20 Unknown History Pravastatin [Pravachol] 40 mg PO QHS 01/25/20 11/20/20 Unknown History Acetaminophen [Mapap] 650 mg PO BID PRN 02/26/20 11/20/20 Unknown History Ascorbic Acid [Vitamin C with Chetna 500 mg PO DAILY 02/26/20 11/20/20 Unknown History Hips] Glimepiride [Amaryl] 4 mg PO QAM 02/26/20 11/20/20 Unknown History Insulin Lispro [Humalog] 5 units SQ AC 02/26/20 11/20/20 Unknown History Multivit-Min/Ferrous Fumarate 15 mg PO DAILY 02/26/20 11/20/20 Unknown History [Multivitamin with Minerals Tab] Apixaban [Eliquis] 2.5 mg PO BID #30 tablet 03/01/20 11/20/20 Unknown Rx Active Medications: Generic Name Dose Route Start Last Admin Trade Name Freq PRN Reason Stop Dose Admin Acetaminophen 650 mg 11/14/20 18:37 11/16/20 17:23 Acetaminophen 325 Mg Tab PO 650 mg Q6H PRN Administration Pain, Mild (1-3) Lipase/Protease/Amylase 1 each 11/22/20 16:13 Lipase 10,500/Protease 25,000/Amylase 43,750 (Units) Dr Braun FEEDTUBE PRN PRN For Clogged Feeding Tube Citalopram Hydrobromide 20 mg 11/16/20 10:00 11/24/20 10:25 Citalopram 20 Mg Tab PO 20 mg QDAY SHAHLA Administration Dextrose 50 ml 11/15/20 10:20 Dextrose 50% In Water (25gm) 50 Ml Syringe IV Q30MIN PRN Hypoglycemia Protocol Famotidine 20 mg 11/16/20 10:00 11/24/20 10:25 Famotidine 20 Mg Tab PO 20 mg QDAY SHAHLA Administration Heparin Sodium (Porcine) 5,000 unit 11/15/20 22:00 11/24/20 10:25 Heparin 5,000 Unit/1 Ml Vial SUB-Q 5,000 unit Q12HR SHAHLA Administration Dextrose 1,000 mls @ 30 mls/hr 11/16/20 11:00 11/23/20 04:54 D5w IV 30 mls/hr DIRECT SHAHLA Administration Insulin Glargine 30 units 11/22/20 13:08 11/23/20 21:58 Insulin Glargine 100 Units/Ml SUB-Q 30 units QHS SHAHLA Administration Insulin Human Lispro 0 unit 11/15/20 11:30 11/24/20 08:31 Insulin Lispro 100 Unit/Ml SUB-Q 3 unit ACHS SHAHLA Administration Protocol Ondansetron HCl 4 mg 11/22/20 13:59 Ondansetron 4 Mg/2 Ml Inj IV ONCE PRN Nausea And Vomiting Oxycodone/Acetaminophen 1 tab 11/15/20 11:45 11/19/20 22:18 Oxycodone /Acetaminophen 5-325mg Tab PO 1 tab Q4H PRN Administration Pain, Moderate (4-6) Pravastatin Sodium 40 mg 11/15/20 22:00 11/23/20 21:57 Pravastatin 40 Mg Tab PO 40 mg QHS SHAHLA Administration Simple Syrup 15 ml 11/22/20 16:13 Simple Syrup 15 Ml FEEDTUBE PRN PRN Hypoglycemia Simple Syrup 30 ml 11/22/20 16:13 Simple Syrup 15 Ml FEEDTUBE PRN PRN Hypoglycemia Sodium Bicarbonate 325 mg 11/22/20 16:13 Sodium Bicarbonate 325 Mg Tab FEEDTUBE PRN PRN For Clogged Feeding Tube Sodium Chloride 10 ml 11/14/20 22:00 11/24/20 10:25 Sodium Chloride 0.9% 10 Ml Flush Syringe IV 10 ml BID SHAHLA Administration Sodium Chloride 10 ml 11/14/20 18:33 Sodium Chloride 0.9% 10 Ml Flush Syringe IV PRN PRN LINE FLUSH
[2020-11-24] MEDS: DEXTROSE 5% IN WATER 1,000 ML IV SCH (21:13)
[2020-11-24] MEDS: PRAVASTATIN 40 MG TAB PO SCH (21:14)
[2020-11-24] MEDS: INSULIN GLARGINE 100 UNITS/ML SUB-Q SCH (22:27)
[2020-11-25 08:19] LABS: Calcium 7.9 mg/dL (8.4-10.2)
[2020-11-25 08:24] LABS: Basophils % (Auto) 0.3 % (0.0-1.8); Eosinophils # (Auto) 0.1 K/mm3 (0.0-0.4); Eosinophils % (Auto) 0.5 % (0.0-4.3); Hematocrit 25.2 % (30.3-42.9); Hemoglobin 8.2 gm/dl (10.1-14.3); Lymphocytes # (Auto) 1.3 K/mm3 (1.2-5.4); Lymphocytes % (Auto) 11.3 % (13.4-35.0); Mean Corpuscular HGB Conc 33 % (30-34); Mean Corpuscular Volume 94 fl (79-97); Monocytes # (Auto) 0.5 K/mm3 (0.0-0.8); Monocytes % (Auto) 4.6 % (0.0-7.3); Platelet Count 173 K/mm3 (140-440); Red Blood Count 2.68 M/mm3 (3.65-5.03); Red Cell Distribution Width 12.9 % (13.2-15.2)
--- NOTE | 2020-11-25 09:15 | Progress Note ---
Assessment and Plan 1. Acute kidney injury: Vasomotor RACH superimposed on CKD in the setting of sepsis. ATN likely. Renal US and CT abdomen negative for hydro. Monitor renal function. Creatinine level is improving. Renal prognosis is guarded. Avoid nephrotoxic agents. Meds dosage based on GFR. 2. FEN: Hypernatremia, improved, monitor. Water flushes. Hyperchloremic metabolic acidosis, improved, monitor. Monitor lytes and volume status. 3. Sepsis: Likely 2/2 PNA. Covid test negative. Follow cultures. 4. Bilateral PNA: S/p Abx. Covid test negative. 5. DKA: Improved. 6. Dysphagia: S/p PEG placement. 7. Anemia: Monitor. 8. HTN: Monitor BP. 9. Metabolic encephalopathy, POA. - Subjective: Patient was seen and examined at the bedside. - General Appearance: General appearance: appears stated age, not in distress, appears chronically ill HEENT: ATNC, CAITY Neck: Trachea midline Respiratory: coarse breath sounds Cardiology: regular, S1S2, no murmur Gastrointestinal: normoactive bowel sounds, not tender, not distended, PEG tube noted Integumentary: no rash, warm and dry Neurologic: alert, not following any command, non-verbal Ext: no edema Subjective Date of service: 11/25/20 Principal diagnosis: Ac hypoxemic resp failure; Sepsis; DKA; RACH; Pneumonia; PUI COVID-19 Objective - Vital Signs Vital signs: Vital Signs - 12hr 11/24/20 11/24/20 11/25/20 21:49 22:00 04:42 Temperature 97.4 F L 97.7 F Pulse Rate 74 Respiratory 16 17 16 Rate Respiratory 18 Rate [chest] Blood Pressure 105/52 111/61 O2 Sat by Pulse 99 99 Oximetry 11/25/20 08:30 Temperature Pulse Rate Respiratory Rate Respiratory Rate [chest] Blood Pressure O2 Sat by Pulse 97 Oximetry - Lab 11/25/20 07:50 11/25/20 07:50 Most recent lab results Calcium 7.9 mg/dL (8.4-10.2) L 11/25/20 07:50 Phosphorus 3.90 mg/dL (2.5-4.5) 11/20/20 10:41 Magnesium 2.20 mg/dL (1.7-2.3) 11/14/20 18:22 Urine Creatinine 67.2 mg/dL (0.1-20.0) H 11/17/20 20:20 Urine Sodium 74 mmol/L 11/17/20 20:20 Medications & Allergies - Medications Allergies/Adverse Reactions: Allergies No Known Allergies Allergy (Verified 02/26/20 10:24) Home Medications: Home Medications Medication Instructions Recorded Confirmed Last Taken Type Citalopram [Celexa] 20 mg PO QDAY 01/25/20 11/20/20 Unknown History Pravastatin [Pravachol] 40 mg PO QHS 01/25/20 11/20/20 Unknown History Acetaminophen [Mapap] 650 mg PO BID PRN 02/26/20 11/20/20 Unknown History Ascorbic Acid [Vitamin C with Chetna 500 mg PO DAILY 02/26/20 11/20/20 Unknown History Hips] Glimepiride [Amaryl] 4 mg PO QAM 02/26/20 11/20/20 Unknown History Insulin Lispro [Humalog] 5 units SQ AC 02/26/20 11/20/20 Unknown History Multivit-Min/Ferrous Fumarate 15 mg PO DAILY 02/26/20 11/20/20 Unknown History [Multivitamin with Minerals Tab] Apixaban [Eliquis] 2.5 mg PO BID #30 tablet 03/01/20 11/20/20 Unknown Rx Active Medications: Generic Name Dose Route Start Last Admin Trade Name Freq PRN Reason Stop Dose Admin Acetaminophen 650 mg 11/14/20 18:37 11/16/20 17:23 Acetaminophen 325 Mg Tab PO 650 mg Q6H PRN Administration Pain, Mild (1-3) Lipase/Protease/Amylase 1 each 11/22/20 16:13 Lipase 10,500/Protease 25,000/Amylase 43,750 (Units) Dr Braun FEEDTUBE PRN PRN For Clogged Feeding Tube Citalopram Hydrobromide 20 mg 11/16/20 10:00 11/24/20 10:25 Citalopram 20 Mg Tab PO 20 mg QDAY SHAHLA Administration Dextrose 50 ml 11/15/20 10:20 Dextrose 50% In Water (25gm) 50 Ml Syringe IV Q30MIN PRN Hypoglycemia Protocol Famotidine 20 mg 11/16/20 10:00 11/24/20 10:25 Famotidine 20 Mg Tab PO 20 mg QDAY SHAHLA Administration Heparin Sodium (Porcine) 5,000 unit 11/15/20 22:00 11/24/20 21:14 Heparin 5,000 Unit/1 Ml Vial SUB-Q 5,000 unit Q12HR SHAHLA Administration Dextrose 1,000 mls @ 30 mls/hr 11/16/20 11:00 11/24/20 21:13 D5w IV 30 mls/hr DIRECT SHAHLA Administration Insulin Glargine 30 units 11/22/20 13:08 11/24/20 22:27 Insulin Glargine 100 Units/Ml SUB-Q 30 units QHS SHAHLA Administration Insulin Human Lispro 0 unit 11/15/20 11:30 11/24/20 22:26 Insulin Lispro 100 Unit/Ml SUB-Q 2 unit ACHS SHAHLA Administration Protocol Ondansetron HCl 4 mg 11/22/20 13:59 Ondansetron 4 Mg/2 Ml Inj IV ONCE PRN Nausea And Vomiting Oxycodone/Acetaminophen 1 tab 11/15/20 11:45 11/19/20 22:18 Oxycodone /Acetaminophen 5-325mg Tab PO 1 tab Q4H PRN Administration Pain, Moderate (4-6) Pravastatin Sodium 40 mg 11/15/20 22:00 11/24/20 21:14 Pravastatin 40 Mg Tab PO 40 mg QHS SHAHLA Administration Simple Syrup 15 ml 11/22/20 16:13 Simple Syrup 15 Ml FEEDTUBE PRN PRN Hypoglycemia Simple Syrup 30 ml 11/22/20 16:13 Simple Syrup 15 Ml FEEDTUBE PRN PRN Hypoglycemia Sodium Bicarbonate 325 mg 11/22/20 16:13 Sodium Bicarbonate 325 Mg Tab FEEDTUBE PRN PRN For Clogged Feeding Tube Sodium Chloride 10 ml 11/14/20 22:00 11/24/20 21:14 Sodium Chloride 0.9% 10 Ml Flush Syringe IV 10 ml BID SHAHLA Administration Sodium Chloride 10 ml 11/14/20 18:33 Sodium Chloride 0.9% 10 Ml Flush Syringe IV PRN PRN LINE FLUSH
[2020-11-25] MEDS: INSULIN LISPRO 100 UNIT/ML SUB-Q SCH ×4 (09:52→22:07)
[2020-11-25] MEDS: FAMOTIDINE 20 MG TAB PO SCH (10:17)
[2020-11-25] MEDS: HEPARIN 5,000 UNIT/1 ML VIAL SUB-Q SCH ×2 (10:17→22:06)
[2020-11-25] MEDS: CITALOPRAM 20 MG TAB PO SCH (10:17)
--- NOTE | 2020-11-25 11:12 | Progress Note ---
Assessment and Plan Assessment and plan: Assessment and Plan Assessment and plan: This is a 55-year-old female who is a resident of [facility] with vascular dementia, depression, developmental delay, debility, diabetes mellitus, hyperlipidemia, recent COVID 19 infection, chronic kidney disease and recurrent DKA who presents the emergency department on 11/14 with reported confusion and ill-appearing over the past day and hypoglycemia. Evaluation in the emergency department revealed sepsis with tachycardia, febrile to 102.8, tachypnea, lactic acidosis and RACH suspected secondary to urinary tract infection/?covid 19 pna, diabetic ketoacidosis, metabolic acidosis, toxic metabolic encephalopathy, acute kidney injury and hypernatremia. Patient was in sepsis, DKA, follow DKA pathway on insulin drip in ICU, stabilized and transferred to the floor COVID-19 positive, COVID-19 negative, ID following Assessment ; Dysphagia; failed swallow eval For PEG placement, GI consulted sepsis Bilateral pneumonia Urinary tract infection Gingivitis and periodontitis Covid 19 negative DKA-resolved: Uncontrolled diabetes mellitus RACH /worsening renal function nephrology considering hemodialysis Toxic metabolic encephalopathy/multifactorial Hypernaturemia, improving Lactic acidosis, resolved Hypophosphatemia Hypokalemia, resolved Elevated ddimer/venous Doppler negative for DVT Plan; GI consulted for PEG placement, Continue current antibiotics Rocephin, and Flagyl Zithromax discontinued, As recommended by ID Follow cultures Patient needs outpatient dentists evaluation upon discharge Insulin glargine dose increased,Closely monitor blood sugars Follow nephrology evaluation recommendations planning dialysis DVT prophylaxis Heparin renal dose Plan of care reviewed with patient and 11/15: Patient has been transitioned to sliding scale insulin and started on a pured diet. Per SNF patient has completed antibiotic therapy for her mouth. Her leukocytosis, hypernatremia, hyperchloremia, metabolic acidosis have improved. She has worsening kidney function. ID consulted today. 11/16: Continue IV antibiotics of ceftriaxone and azithromycin per ID recommendati ons. Patient has been transitioned from IV insulin drip to long-acting insulin of Lantus 14 units at bedtime. Patient does have acute kidney injury likely secondary to sepsis/ATN +/- vasomotor nephropathy. Creatinine is worse today at 2.7. Consult nephrology for further evaluation. Check CT scan of the abdomen pelvis. 11/17: Continue antibiotics per ID recommendations. Patient appears to have pneumonia and UTI. Blood and urine cultures remain negative x48 hours. Follow- up COVID-[address] scan shows a nonobstructing calculus in the right kidney. Follow-up BMP to assess renal function 11/18: Continue ceftriaxone, itraconazole and azithromycin for sepsis secondary to pneumonia/UTI. Procalcitonin elevated at 30.66. Chest x-ray revealed patchy bilateral infiltrates. Etiology aspiration pneumonia versus COVID-19. COVID-19 PCR pending. Blood and urine cultures remain negative. Nephrology following for acute kidney injury. Creatinine worsened. Follow-up BMP this morning. CT scan negative for obstruction. 11/19/2020; continue current antibiotics per ID COVID-19 test negative, patient is requiring 2 L of nasal cannula oxygen Closely monitor and adjust management as needed Consults and recommendations noted and appreciated 11/20/2020; Dysphagia, failed swallow eval, GI consulted for PEG placement GI recommend laparoscopic /surgical placement of PEG Surgeon Dr. Black consulted, follow clinically Disposition; follow clinically, discharge to SNF when medically stable Follow GI/surgery recommendations for PEG 11/21/20 Patient is going for possible PICC placement today. Patient renal function is improving BUN is 71 and creatinine 3.6. We will continue to monitor the kidney function. Recheck BMP in the morning. Continue Rocephin and metronidazole antibiotic as per ID Discharge plan to SNF when medically stable Sprinkler Driver recommendation are appreciated Recheck CBC BMP in the morning 11/22/20 Patient is doing okay. Patient is nonverbal. No chest pain no shortness of breath Patient is going for g tube placement today. Patient renal function is improving BUN is 68 and creatinine 3.4. We will continue to monitor the kidney function. Recheck BMP in the morning. Continue Rocephin and metronidazole antibiotic as per ID Discharge plan to SNF when medically stable Recheck BMP in the morning 11/23/20 Patient is seen and examined Patient chart and medications reviewed Patient is sleeping Patient is noncommunicative and cachectic Malnourished Patient is status post PEG tube placement yesterday Renal function is improving. BUN is 59 creatinine 3.1 Continue current management and antibiotic Recheck BMP in the morning Discharge plan to SNF when medically stable 11/24/20 Patient is seen and examined Patient is doing better. WBC is 10.7 hemoglobin 8.7 hematocrit 27.3 Renal function is improving BUN is 59 creatinine 2.8 Patient is a status post PEG placement on PEG feeding. Urine culture is most likely contamination. Continue current management and antibiotic Recheck BMP in the morning. Nephrology follow-up Discharge plan to SNF when medically stable 11/25/20 Patient is seen and examined Patient is doing better. No new complaint Patient is more awake alert. Talking few sentences Malnourished Patient is status post PEG tube placement . Urine culture is most likely contamination . WBC is 11.1 and BUN 53 creatinine 2.4. Renal function is improving. Nephrology follow-up Continue current management and antibiotic orchid worker for discharge planning if okay with nephrology Patient needs outpatient dental appointment. History Interval history: Patient is seen and examined Patient chart and medications reviewed Patient is doing better. No new complaint Patient is more awake alert. Talking few sentences Malnourished Patient is status post PEG tube placement Vital signs are noted Hospitalist Physical - Constitutional Vitals: Temp Pulse Resp BP Pulse Ox 97.7 F 74 16 111/61 97 11/25/20 04:42 11/24/20 21:49 11/25/20 04:42 11/25/20 04:42 11/25/20 08:30 General appearance: Present: no acute distress, cachectic, disheveled - EENT Eyes: Present: PERRL, EOM intact ENT: clear oral mucosa, poor dentition - Neck Neck: Present: supple, normal ROM - Respiratory Respiratory effort: normal Respiratory: bilateral: diminished - Cardiovascular Rhythm: regular Heart Sounds: Present: S1 & S2 - Extremities Extremities: no ischemia Peripheral Pulses: within normal limits - Abdominal General gastrointestinal: soft, non-tender, non-distended, normal bowel sounds - Integumentary Integumentary: Present: warm, dry - Neurologic Neurologic: CNII-XII intact, moves all extremities - Allied Health Allied health notes reviewed: nursing HEART Score - HEART Score Troponin: Troponin T < 0.010 ng/mL (0.00-0.029) 11/14/20 16:23 Results - Labs CBC & Chem 7: 11/25/20 07:50 11/25/20 07:50 Labs: Laboratory Last Values WBC 11.1 K/mm3 (4.5-11.0) H 11/25/20 07:50 RBC 2.68 M/mm3 (3.65-5.03) L 11/25/20 07:50 Hgb 8.2 gm/dl (10.1-14.3) L 11/25/20 07:50 Hct 25.2 % (30.3-42.9) L 11/25/20 07:50 MCV 94 fl (79-97) 11/25/20 07:50 MCH 31 pg (28-32) 11/25/20 07:50 MCHC 33 % (30-34) 11/25/20 07:50 RDW 12.9 % (13.2-15.2) L 11/25/20 07:50 Plt Count 173 K/mm3 (140-440) 11/25/20 07:50 Lymph % (Auto) 11.3 % (13.4-35.0) L 11/25/20 07:50 [place] % (Auto) 4.6 % (0.0-7.3) 11/25/20 07:50 Eos % (Auto) 0.5 % (0.0-4.3) 11/25/20 07:50 Baso % (Auto) 0.3 % (0.0-1.8) 11/25/20 07:50 Lymph # (Auto) 1.3 K/mm3 (1.2-5.4) 11/25/20 07:50 [place] # (Auto) 0.5 K/mm3 (0.0-0.8) 11/25/20 07:50 Eos # (Auto) 0.1 K/mm3 (0.0-0.4) 11/25/20 07:50 Baso # (Auto) 0.0 K/mm3 (0.0-0.1) 11/25/20 07:50 Add Manual Diff Complete 11/19/20 07:08 Total Counted 100 11/19/20 07:08 Seg Neutrophils % 83.3 % (40.0-70.0) H 11/25/20 07:50 Seg Neuts % (Manual) 94.0 % (40.0-70.0) H 11/19/20 07:08 Band Neutrophils % 1.0 % 11/18/20 09:23 Lymphocytes % (Manual) 5.0 % (13.4-35.0) L 11/19/20 07:08 Monocytes % (Manual) 1.0 % (0.0-7.3) 11/18/20 09:23 Eosinophils % (Manual) 1.0 % (0.0-4.3) 11/19/20 07:08 Metamyelocytes % 1.0 % 11/18/20 09:23 Nucleated RBC % Not Reportable 11/19/20 07:08 Seg Neutrophils # 9.3 K/mm3 (1.8-7.7) H 11/25/20 07:50 Seg Neutrophils # Man 14.5 K/mm3 (1.8-7.7) H 11/19/20 07:08 Band Neutrophils # 0.0 K/mm3 11/19/20 07:08 Lymphocytes # (Manual) 0.8 K/mm3 (1.2-5.4) L 11/19/20 07:08 Abs React Lymphs (Man) 0.0 K/mm3 11/19/20 07:08 Monocytes # (Manual) 0.0 K/mm3 (0.0-0.8) 11/19/20 07:08 Eosinophils # (Manual) 0.2 K/mm3 (0.0-0.4) 11/19/20 07:08 Basophils # (Manual) 0.0 K/mm3 (0.0-0.1) 11/19/20 07:08 Metamyelocytes # 0.0 K/mm3 11/19/20 07:08 Myelocytes # 0.0 K/mm3 11/19/20 07:08 Promyelocytes # 0.0 K/mm3 11/19/20 07:08 Blast Cells # 0.0 K/mm3 11/19/20 07:08 WBC Morphology Not Reportable 11/19/20 07:08 Hypersegmented Neuts Not Reportable 11/19/20 07:08 Hyposegmented Neuts Not Reportable 11/19/20 07:08 Hypogranular Neuts Not Reportable 11/19/20 07:08 Smudge Cells Not Reportable 11/19/20 07:08 Toxic Granulation Not Reportable 11/19/20 07:08 Toxic Vacuolation Not Reportable 11/19/20 07:08 Dohle Bodies Not Reportable 11/19/20 07:08 Pelger-Huet Anomaly Not Reportable 11/19/20 07:08 Jamia Rods Not Reportable 11/19/20 07:08 Platelet Estimate Consistent w auto 11/19/20 07:08 Clumped Platelets Not Reportable 11/19/20 07:08 Plt Clumps, EDTA Not Reportable 11/19/20 07:08 Large Platelets Not Reportable 11/19/20 07:08 Giant Platelets Not Reportable 11/19/20 07:08 Platelet Satelliting Not Reportable 11/19/20 07:08 Plt Morphology Comment Not Reportable 11/19/20 07:08 RBC Morphology Normal 11/19/20 07:08 Dimorphic RBCs Not Reportable 11/19/20 07:08 Polychromasia Not Reportable 11/19/20 07:08 Hypochromasia Not Reportable 11/19/20 07:08 Poikilocytosis Not Reportable 11/19/20 07:08 Anisocytosis Not Reportable 11/19/20 07:08 Microcytosis Not Reportable 11/19/20 07:08 Macrocytosis Not Reportable 11/19/20 07:08 Spherocytes Not Reportable 11/19/20 07:08 Pappenheimer Bodies Not Reportable 11/19/20 07:08 Sickle Cells Not Reportable 11/19/20 07:08 Target Cells Not Reportable 11/19/20 07:08 Tear Drop Cells Not Reportable 11/19/20 07:08 Ovalocytes Not Reportable 11/19/20 07:08 Helmet Cells Not Reportable 11/19/20 07:08 [place] Bodies Not Reportable 11/19/20 07:08 [place] Rings Not Reportable 11/19/20 07:08 Luis Cells Not Reportable 11/19/20 07:08 Bite Cells Not Reportable 11/19/20 07:08 Crenated Cell Not Reportable 11/19/20 07:08 Elliptocytes Not Reportable 11/19/20 07:08 Acanthocytes (Spur) Not Reportable 11/19/20 07:08 Rouleaux Not Reportable 11/19/20 07:08 Hemoglobin C Crystals Not Reportable 11/19/20 07:08 Schistocytes Not Reportable 11/19/20 07:08 Malaria parasites Not Reportable 11/19/20 07:08 Felice Bodies Not Reportable 11/19/20 07:08 Hem Pathologist Commnt No 11/19/20 07:08 PT 16.6 Sec. (12.2-14.9) H 11/22/20 08:00 INR 1.36 (0.87-1.13) H 11/22/20 08:00 APTT 23.1 Sec. (24.2-36.6) L 11/14/20 16:23 D-Dimer 2876.26 ng/mlDDU (0-234) H 11/14/20 18:30 VBG pH 7.216 (7.320-7.420) L 11/14/20 16:23 Sodium 135 mmol/L (137-145) L 11/25/20 07:50 Potassium 4.1 mmol/L (3.6-5.0) 11/25/20 07:50 Chloride 102.5 mmol/L (98-107) 11/25/20 07:50 Carbon Dioxide 22 mmol/L (22-30) 11/25/20 07:50 Anion Gap 15 mmol/L 11/25/20 07:50 BUN 53 mg/dL (7-17) H 11/25/20 07:50 Creatinine 2.4 mg/dL (0.6-1.2) H 11/25/20 07:50 Estimated GFR 21 ml/min 11/25/20 07:50 BUN/Creatinine Ratio 22 % 11/25/20 07:50 Glucose 149 mg/dL (65-100) H 11/25/20 07:50 POC Glucose 240 mg/dL (70-105) H 11/24/20 21:50 Hemoglobin A1c 10.8 % (4-6) H 11/15/20 10:15 Ketones Quantitative Moderate (Negative) 11/14/20 16:23 Osmolality 348 Mosm/kg 11/20/20 10:41 Lactic Acid 1.60 mmol/L (0.7-2.0) 11/15/20 06:18 Calcium 7.9 mg/dL (8.4-10.2) L 11/25/20 07:50 Phosphorus 3.90 mg/dL (2.5-4.5) 11/20/20 10:41 Magnesium 2.20 mg/dL (1.7-2.3) 11/14/20 18:22 Ferritin 623.7 ng/mL (10.0-200.0) H 11/14/20 18:30 Total Bilirubin < 0.20 mg/dL (0.1-1.2) 11/15/20 06:18 Direct Bilirubin < 0.2 mg/dL (0-0.2) 11/14/20 16:23 Indirect Bilirubin 0.0 mg/dL 11/14/20 16:23 AST 27 units/L (5-40) 11/15/20 06:18 ALT 20 units/L (7-56) 11/15/20 06:18 Alkaline Phosphatase 184 units/L (35-129) H 11/15/20 06:18 Lactate Dehydrogenase 247 units/L (91-180) H 11/14/20 18:30 Total Creatine Kinase 44 units/L (30-135) 11/20/20 10:41 Troponin T < 0.010 ng/mL (0.00-0.029) 11/14/20 16:23 C-Reactive Protein 52.00 mg/dL (0.00-1.30) H 11/14/20 18:30 Total Protein 5.8 g/dL (6.3-8.2) L D 11/15/20 06:18 Albumin 2.5 g/dL (3.9-5) L 11/15/20 06:18 Albumin/Globulin Ratio 0.8 % 11/15/20 06:18 Procalcitonin 30.66 ng/mL (<0.15) 11/14/20 18:30 Urine Color Yellow (Yellow) 11/17/20 20:20 Urine Turbidity Cloudy (Clear) 11/17/20 20:20 Urine pH 5.0 (5.0-7.0) 11/17/20 20:20 Ur Specific [place] 1.015 (1.003-1.030) 11/17/20 20:20 Urine Protein 100 mg/dl mg/dL (Negative) 11/17/20 20:20 Urine Glucose (UA) 150 mg/dL (Negative) 11/17/20 20:20 Urine Ketones Neg mg/dL (Negative) 11/17/20 20:20 Urine Blood Mod (Negative) 11/17/20 20:20 Urine Nitrite Neg (Negative) 11/17/20 20:20 Urine Bilirubin Neg (Negative) 11/17/20 20:20 Urine Urobilinogen < 2.0 mg/dL (<2.0) 11/17/20 20:20 Ur Leukocyte Esterase Mod (Negative) 11/17/20 20:20 Urine WBC (Auto) 66.0 /HPF (0.0-6.0) H 11/17/20 20:20 Urine RBC (Auto) 59.0 /HPF (0.0-6.0) 11/17/20 20:20 U Epithel Cells (Auto) 1.0 /HPF (0-13.0) 11/17/20 20:20 Urine Bacteria (Auto) 1+ /HPF (Negative) 11/17/20 20:20 Urine Yeast (Budding) 3+ /HPF 11/17/20 20:20 Urine Creatinine 67.2 mg/dL (0.1-20.0) H 11/17/20 20:20 Urine Sodium 74 mmol/L 11/17/20 20:20 Coronavirus (PCR) Negative (Negative) 11/17/20 11:02 Verma/IV: Voiding Method External Female Catheter Active Medications - Current Medications Current Medications: Generic Name Dose Route Start Last Admin Trade Name Freq PRN Reason Stop Dose Admin Acetaminophen 650 mg 11/14/20 18:37 11/16/20 17:23 Acetaminophen 325 Mg Tab PO 650 mg Q6H PRN Administration Pain, Mild (1-3) Lipase/Protease/Amylase 1 each 11/22/20 16:13 Lipase 10,500/Protease 25,000/Amylase 43,750 (Units) Dr Braun FEEDTUBE PRN PRN For Clogged Feeding Tube Citalopram Hydrobromide 20 mg 11/16/20 10:00 11/25/20 10:17 Citalopram 20 Mg Tab PO 20 mg QDAY SHAHLA Administration Dextrose 50 ml 11/15/20 10:20 Dextrose 50% In Water (25gm) 50 Ml Syringe IV Q30MIN PRN Hypoglycemia Protocol Famotidine 20 mg 11/16/20 10:00 11/25/20 10:17 Famotidine 20 Mg Tab PO 20 mg QDAY SHAHLA Administration Heparin Sodium (Porcine) 5,000 unit 11/15/20 22:00 11/25/20 10:17 Heparin 5,000 Unit/1 Ml Vial SUB-Q 5,000 unit Q12HR SHAHLA Administration Dextrose 1,000 mls @ 30 mls/hr 11/16/20 11:00 11/24/20 21:13 D5w IV 30 mls/hr DIRECT SHAHLA Administration Insulin Glargine 30 units 11/22/20 13:08 11/24/20 22:27 Insulin Glargine 100 Units/Ml SUB-Q 30 units QHS SHAHLA Administration Insulin Human Lispro 0 unit 11/15/20 11:30 11/25/20 09:52 Insulin Lispro 100 Unit/Ml SUB-Q Not Given ACHS [facility] Protocol Ondansetron HCl 4 mg 11/22/20 13:59 Ondansetron 4 Mg/2 Ml Inj IV ONCE PRN Nausea And Vomiting Oxycodone/Acetaminophen 1 tab 11/15/20 11:45 11/19/20 22:18 Oxycodone /Acetaminophen 5-325mg Tab PO 1 tab Q4H PRN Administration Pain, Moderate (4-6) Pravastatin Sodium 40 mg 11/15/20 22:00 11/24/20 21:14 Pravastatin 40 Mg Tab PO 40 mg QHS SHAHLA Administration Simple Syrup 15 ml 11/22/20 16:13 Simple Syrup 15 Ml FEEDTUBE PRN PRN Hypoglycemia Simple Syrup 30 ml 11/22/20 16:13 Simple Syrup 15 Ml FEEDTUBE PRN PRN Hypoglycemia Sodium Bicarbonate 325 mg 11/22/20 16:13 Sodium Bicarbonate 325 Mg Tab FEEDTUBE PRN PRN For Clogged Feeding Tube Sodium Chloride 10 ml 11/14/20 22:00 11/25/20 10:18 Sodium Chloride 0.9% 10 Ml Flush Syringe IV 10 ml BID SHAHLA Administration Sodium Chloride 10 ml 11/14/20 18:33 Sodium Chloride 0.9% 10 Ml Flush Syringe IV PRN PRN LINE FLUSH Nutrition/Malnutrition Assess - Dietary Evaluation Nutrition/Malnutrition Findings: Nutrition Notes Start: 11/15/20 10:28 Freq: Status: Active Protocol: Document 11/24/20 09:50 (Rec: 11/24/20 09:57 [id number]) Nutrition Notes Need for Assessment generated from: MD Order Initial or Follow up Reassessment Current Diagnosis Acute Kidney Injury,Diabetes, Sepsis,Hyperlipidemia Other Pertinent Diagnosis UTI, bilat pneu, vascular dementia, depression, r/o COVID-19 Current Diet Glucerna 1.2 at 50 ml/hr Labs/Tests BUN 59 Cr 2.8 BG 294 Pertinent Medications Humalog Lantus D5w at 30 ml/hr Height 5 ft 4 in Weight 46.8 kg [place] Body Weight (kg) 54.54 BMI 17.6 Weight Status Underweight Subjective/Other Information MD order for malnutrition. Pt already being followed. Observed pt with PEG TF running at 50 ml/hr and tolerating. Percent of energy/protein needs met: 88%/100% Burn Absent Trauma Absent Current % PO Negligible Minimum of two criteria No #1 Nutrition Diagnosis Inadequate oral intake Diagnosis Progress(for reassessment Continues documentation) Is patient on ventilator? No Is Patient Ambulatory and/or Out of Bed No REE-([facility]-confined to bed) 1262.316 Kcal/Kg value to use for calculation 35 Approximate Energy Requirements Using 1638 kcal/Kg Calculation Used for Recommendations Kcal/kg Additional Notes PRO needs: 56-70g (1.2-1.5g/kg ) Fluids: 1 mL/kcal or per MD Nutrition Intervention Nutrition Support: Glucerna 1.2 at 50 mL/hr. Flush 100 ml q4h per MD Kcal 1,440 Protein (gm) 72 Fluid (mL) 966 Goal #1 Meet at least 75% of protein and energy needs via TF Goal #2 Weight maintenance/weight gain Anticipated Discharge Needs: TF Glucerna 1.2 at 50 mL/hr. Flush 100 ml q4h Follow-Up By: 11/27/20 Additional Comments FU for TF tolerance - Malnutrition Assessment Minimum of two criteria: Yes - Attestation Statement I have reviewed and agreed w/ Malnutrition eval & tx plan: Yes
--- NOTE | 2020-11-25 14:13 | Progress Note ---
Assessment and Plan Patient is weak. Patient awake but not following commands. No acute respiratory distress. Poor dental hygiene. Resting on room air. O2 saturation 99%. Patient is afebrile. Has mild leukocytosis. Chest X-ray performed 11/14/20. Chest x-ray shows interval development of patchy bibasilar airspace opacities worrisome for pneumonia in the appropriate clinical setting. Recommend follow-up chest radiograph in 6-12 weeks following treatment to ensure resolution. Patient is COVID-19 negative. Patient presently on s/c heparin, and famotidine. Repeating chest xray tomorrow. ABGs on room air tomorrow. - Patient Problems (1) Acute hypoxemic respiratory failure Current Visit: No Status: Acute Plan to address problem: Patient is on room air. O2 saturation 99%. Continue s/c heparin. Continue famotidine. (2) Pneumonia Current Visit: Yes Status: Acute Plan to address problem: Patient was treated with ceftriaxone, and metronidazole. (3) Sepsis Current Visit: Yes Status: Acute Plan to address problem: Patient was treated with ceftriaxone, and metronidazole. (4) Acute encephalopathy Current Visit: Yes Status: Acute Plan to address problem: Management as per primary care. (5) DKA (diabetic ketoacidoses) Current Visit: Yes Status: Acute Qualifiers: Diabetes mellitus type: type 1 Plan to address problem: Management as per primary care. (6) Suspected 2019-nCoV infection Current Visit: Yes Status: Acute Plan to address problem: Negative COVID-19 test. Subjective Date of service: 11/25/20 Principal diagnosis: Ac hypoxemic resp failure; Sepsis; DKA; RACH; Pneumonia; PUI COVID-19 Interval history: Patient is weak. Patient awake but not following commands. No acute respiratory distress. Poor dental hygiene. Resting on room air. O2 saturation 99%. Patient is afebrile. Has mild leukocytosis. Chest X-ray performed 11/14/20. Chest x-ray shows interval development of patchy bibasilar airspace opacities worrisome for pneumonia in the appropriate clinical setting. Recommend follow-up chest radiograph in 6-12 weeks following treatment to ensure resolution. Patient is COVID-19 negative. Patient presently on s/c heparin, and famotidine. Repeating chest xray tomorrow. ABGs on room air tomorrow. Objective Vital Signs - 12hr 11/25/20 11/25/20 04:42 08:30 Temperature 97.7 F Respiratory 16 Rate Blood Pressure 111/61 O2 Sat by Pulse 97 Oximetry Constitutional: no acute distress, alert Eyes: non-icteric ENT: oropharynx moist, other (very poor dentition) Neck: supple, no lymphadenopathy, no JVD Effort: mildly labored Ascultation: Bilateral: diminished breath sounds, rhonchi Percussion: Bilateral: not dull Cardiovascular: regular rate and rhythm Gastrointestinal: normoactive bowel sounds, soft, non-tender, non-distended Integumentary: other (see [facility] notes) Extremities: no cyanosis, no edema, pink and warm, pulses normal Neurologic: pupils equal and round, CN II-XII normal, motor strength normal and, other (+ cognitive dysfunction) Psychiatric: other (+ cognitive dysfunction) CBC and BMP: 11/25/20 07:50 11/25/20 07:50 ABG, PT/INR, D-dimer: PT/INR, D-dimer PT 16.6 Sec. (12.2-14.9) H 11/22/20 08:00 INR 1.36 (0.87-1.13) H 11/22/20 08:00 D-Dimer 2876.26 ng/mlDDU (0-234) H 11/14/20 18:30 Abnormal lab findings: Abnormal Labs 11/14/20 11/14/20 11/14/20 16:23 16:23 16:23 WBC 14.5 H RBC 3.48 L Hgb Hct MCV 101 H RDW Lymph % (Auto) Lymph # (Auto) Seg Neutrophils % Seg Neuts % (Manual) 92.0 H Lymphocytes % (Manual) 5.0 L Seg Neutrophils # Seg Neutrophils # Man 13.3 H Lymphocytes # (Manual) 0.7 L PT 15.3 H INR 1.21 H APTT 23.1 L D-Dimer VBG pH Sodium Potassium Chloride Carbon Dioxide BUN Creatinine Glucose POC Glucose Hemoglobin A1c Lactic Acid 7.50 H* Calcium Phosphorus Ferritin Alkaline Phosphatase Lactate Dehydrogenase C-Reactive Protein Total Protein Albumin Urine WBC (Auto) Urine Creatinine 11/14/20 11/14/20 11/14/20 16:23 16:23 16:27 WBC RBC Hgb Hct MCV RDW Lymph % (Auto) Lymph # (Auto) Seg Neutrophils % Seg Neuts % (Manual) Lymphocytes % (Manual) Seg Neutrophils # Seg Neutrophils # Man Lymphocytes # (Manual) PT INR APTT D-Dimer VBG pH 7.216 L Sodium 166 H* Potassium Chloride 120.8 H Carbon Dioxide 6 L* BUN 36 H Creatinine 1.9 H Glucose 765 H* POC Glucose Hemoglobin A1c Lactic Acid Calcium 11.4 H Phosphorus Ferritin Alkaline Phosphatase 259 H Lactate Dehydrogenase C-Reactive Protein Total Protein Albumin 3.3 L Urine WBC (Auto) 38.0 H Urine Creatinine 11/14/20 11/14/20 11/14/20 18:22 18:22 18:22 WBC RBC Hgb Hct MCV RDW Lymph % (Auto) Lymph # (Auto) Seg Neutrophils % Seg Neuts % (Manual) Lymphocytes % (Manual) Seg Neutrophils # Seg Neutrophils # Man Lymphocytes # (Manual) PT INR APTT D-Dimer VBG pH Sodium Potassium Chloride Carbon Dioxide 11 L BUN 32 H Creatinine 1.5 H Glucose 695 H* POC Glucose Hemoglobin A1c Lactic Acid 2.60 H* Calcium Phosphorus 1.30 L Ferritin Alkaline Phosphatase Lactate Dehydrogenase C-Reactive Protein Total Protein Albumin Urine WBC (Auto) Urine Creatinine 11/14/20 11/14/20 11/14/20 18:30 18:30 18:30 WBC RBC Hgb Hct MCV RDW Lymph % (Auto) Lymph # (Auto) Seg Neutrophils % Seg Neuts % (Manual) Lymphocytes % (Manual) Seg Neutrophils # Seg Neutrophils # Man Lymphocytes # (Manual) PT INR APTT D-Dimer 2876.26 H VBG pH Sodium Potassium Chloride Carbon Dioxide BUN Creatinine Glucose POC Glucose Hemoglobin A1c Lactic Acid Calcium Phosphorus Ferritin 623.7 H Alkaline Phosphatase Lactate Dehydrogenase 247 H C-Reactive Protein 52.00 H Total Protein Albumin Urine WBC (Auto) Urine Creatinine 11/14/20 11/14/20 11/14/20 20:23 23:08 23:08 WBC RBC Hgb Hct MCV RDW Lymph % (Auto) Lymph # (Auto) Seg Neutrophils % Seg Neuts % (Manual) Lymphocytes % (Manual) Seg Neutrophils # Seg Neutrophils # Man Lymphocytes # (Manual) PT INR APTT D-Dimer VBG pH Sodium Potassium 2.6 L* D Chloride 109.4 H Carbon Dioxide 8 L* 10 L BUN 33 H 32 H Creatinine 1.6 H < 0.2 L D Glucose 753 H* 509 H* POC Glucose Hemoglobin A1c Lactic Acid 5.70 H* Calcium Phosphorus Ferritin Alkaline Phosphatase Lactate Dehydrogenase C-Reactive Protein Total Protein Albumin Urine WBC (Auto) Urine Creatinine 11/14/20 11/15/20 11/15/20 23:14 00:01 00:54 WBC RBC Hgb Hct MCV RDW Lymph % (Auto) Lymph # (Auto) Seg Neutrophils % Seg Neuts % (Manual) Lymphocytes % (Manual) Seg Neutrophils # Seg Neutrophils # Man Lymphocytes # (Manual) PT INR APTT D-Dimer VBG pH Sodium Potassium Chloride Carbon Dioxide BUN Creatinine Glucose POC Glucose 427 H 375 H 280 H Hemoglobin A1c Lactic Acid Calcium Phosphorus Ferritin Alkaline Phosphatase Lactate Dehydrogenase C-Reactive Protein Total Protein Albumin Urine WBC (Auto) Urine Creatinine 11/15/20 11/15/20 11/15/20 01:58 02:56 04:53 WBC RBC Hgb Hct MCV RDW Lymph % (Auto) Lymph # (Auto) Seg Neutrophils % Seg Neuts % (Manual) Lymphocytes % (Manual) Seg Neutrophils # Seg Neutrophils # Man Lymphocytes # (Manual) PT INR APTT D-Dimer VBG pH Sodium Potassium Chloride Carbon Dioxide BUN Creatinine Glucose POC Glucose 191 H 124 H 140 H Hemoglobin A1c Lactic Acid Calcium Phosphorus Ferritin Alkaline Phosphatase Lactate Dehydrogenase C-Reactive Protein Total Protein Albumin Urine WBC (Auto) Urine Creatinine 11/15/20 11/15/20 11/15/20 06:18 06:18 06:18 WBC RBC 2.74 L Hgb 8.9 L Hct 26.1 L D MCV RDW 12.8 L Lymph % (Auto) Lymph # (Auto) Seg Neutrophils % Seg Neuts % (Manual) 81.0 H Lymphocytes % (Manual) Seg Neutrophils # Seg Neutrophils # Man 8.7 H Lymphocytes # (Manual) PT INR APTT D-Dimer VBG pH Sodium 149 H 149 H Potassium Chloride 116.2 H 117.4 H Carbon Dioxide 20 L D 20 L BUN 33 H 32 H Creatinine 1.6 H D 1.6 H Glucose 236 H 231 H POC Glucose Hemoglobin A1c Lactic Acid Calcium Phosphorus Ferritin Alkaline Phosphatase 184 H Lactate Dehydrogenase C-Reactive Protein Total Protein 5.8 L D Albumin 2.5 L Urine WBC (Auto) Urine Creatinine 11/15/20 11/15/20 11/15/20 06:24 10:15 10:18 WBC RBC Hgb Hct MCV RDW Lymph % (Auto) Lymph # (Auto) Seg Neutrophils % Seg Neuts % (Manual) Lymphocytes % (Manual) Seg Neutrophils # Seg Neutrophils # Man Lymphocytes # (Manual) PT INR APTT D-Dimer VBG pH Sodium 148 H Potassium Chloride 116.4 H Carbon Dioxide 19 L BUN 33 H Creatinine 1.8 H Glucose 133 H POC Glucose 223 H Hemoglobin A1c 10.8 H Lactic Acid Calcium Phosphorus Ferritin Alkaline Phosphatase Lactate Dehydrogenase C-Reactive Protein Total Protein Albumin Urine WBC (Auto) Urine Creatinine 11/15/20 11/15/20 11/15/20 12:20 17:44 18:31 WBC RBC Hgb Hct MCV RDW Lymph % (Auto) Lymph # (Auto) Seg Neutrophils % Seg Neuts % (Manual) Lymphocytes % (Manual) Seg Neutrophils # Seg Neutrophils # Man Lymphocytes # (Manual) PT INR APTT D-Dimer VBG pH Sodium 149 H Potassium Chloride 114.2 H Carbon Dioxide 15 L BUN 37 H Creatinine 2.0 H Glucose 400 H POC Glucose 266 H 350 H Hemoglobin A1c Lactic Acid Calcium Phosphorus Ferritin Alkaline Phosphatase Lactate Dehydrogenase C-Reactive Protein Total Protein Albumin Urine WBC (Auto) Urine Creatinine 11/15/20 11/16/20 11/16/20 21:40 07:00 07:56 WBC RBC Hgb Hct MCV RDW Lymph % (Auto) Lymph # (Auto) Seg Neutrophils % Seg Neuts % (Manual) Lymphocytes % (Manual) Seg Neutrophils # Seg Neutrophils # Man Lymphocytes # (Manual) PT INR APTT D-Dimer VBG pH Sodium 152 H Potassium Chloride 118.9 H Carbon Dioxide 17 L BUN 43 H Creatinine 2.7 H Glucose 204 H POC Glucose 195 H 222 H Hemoglobin A1c Lactic Acid Calcium 8.0 L Phosphorus 4.70 H D Ferritin Alkaline Phosphatase Lactate Dehydrogenase C-Reactive Protein Total Protein Albumin Urine WBC (Auto) Urine Creatinine 11/16/20 11/16/20 11/16/20 11:40 17:06 21:07 WBC RBC Hgb Hct MCV RDW Lymph % (Auto) Lymph # (Auto) Seg Neutrophils % Seg Neuts % (Manual) Lymphocytes % (Manual) Seg Neutrophils # Seg Neutrophils # Man Lymphocytes # (Manual) PT INR APTT D-Dimer VBG pH Sodium Potassium Chloride Carbon Dioxide BUN Creatinine Glucose POC Glucose 201 H 315 H 230 H Hemoglobin A1c Lactic Acid Calcium Phosphorus Ferritin Alkaline Phosphatase Lactate Dehydrogenase C-Reactive Protein Total Protein Albumin Urine WBC (Auto) Urine Creatinine 11/17/20 11/17/20 11/17/20 07:57 10:30 11:17 WBC RBC Hgb Hct MCV RDW Lymph % (Auto) Lymph # (Auto) Seg Neutrophils % Seg Neuts % (Manual) Lymphocytes % (Manual) Seg Neutrophils # Seg Neutrophils # Man Lymphocytes # (Manual) PT INR APTT D-Dimer VBG pH Sodium 153 H Potassium 3.4 L Chloride 122.1 H Carbon Dioxide 19 L BUN 54 H Creatinine 3.6 H Glucose 108 H POC Glucose 253 H 106 H Hemoglobin A1c Lactic Acid Calcium Phosphorus Ferritin Alkaline Phosphatase Lactate Dehydrogenase C-Reactive Protein Total Protein Albumin Urine WBC (Auto) Urine Creatinine 11/17/20 11/17/20 11/17/20 16:00 20:20 20:20 WBC RBC Hgb Hct MCV RDW Lymph % (Auto) Lymph # (Auto) Seg Neutrophils % Seg Neuts % (Manual) Lymphocytes % (Manual) Seg Neutrophils # Seg Neutrophils # Man Lymphocytes # (Manual) PT INR APTT D-Dimer VBG pH Sodium Potassium Chloride Carbon Dioxide BUN Creatinine Glucose POC Glucose 198 H Hemoglobin A1c Lactic Acid Calcium Phosphorus Ferritin Alkaline Phosphatase Lactate Dehydrogenase C-Reactive Protein Total Protein Albumin Urine WBC (Auto) 66.0 H Urine Creatinine 67.2 H 11/17/20 11/18/20 11/18/20 21:23 07:43 09:23 WBC 21.0 H RBC 2.97 L Hgb 9.1 L Hct 28.0 L MCV RDW Lymph % (Auto) Lymph # (Auto) Seg Neutrophils % Seg Neuts % (Manual) 89.0 H Lymphocytes % (Manual) 6.0 L Seg Neutrophils # Seg Neutrophils # Man 18.7 H Lymphocytes # (Manual) PT INR APTT D-Dimer VBG pH Sodium Potassium Chloride Carbon Dioxide BUN Creatinine Glucose POC Glucose 193 H 181 H Hemoglobin A1c Lactic Acid Calcium Phosphorus Ferritin Alkaline Phosphatase Lactate Dehydrogenase C-Reactive Protein Total Protein Albumin Urine WBC (Auto) Urine Creatinine 11/18/20 11/18/20 11/18/20 09:23 12:54 16:20 WBC RBC Hgb Hct MCV RDW Lymph % (Auto) Lymph # (Auto) Seg Neutrophils % Seg Neuts % (Manual) Lymphocytes % (Manual) Seg Neutrophils # Seg Neutrophils # Man Lymphocytes # (Manual) PT INR APTT D-Dimer VBG pH Sodium 152 H Potassium Chloride 119.1 H Carbon Dioxide 19 L BUN 62 H Creatinine 3.9 H Glucose 224 H POC Glucose 297 H 340 H Hemoglobin A1c Lactic Acid Calcium 8.1 L Phosphorus Ferritin Alkaline Phosphatase Lactate Dehydrogenase C-Reactive Protein Total Protein Albumin Urine WBC (Auto) Urine Creatinine 11/18/20 11/19/20 11/19/20 21:28 07:08 07:08 WBC 15.4 H RBC 2.85 L Hgb 8.7 L Hct 26.5 L MCV RDW Lymph % (Auto) Lymph # (Auto) Seg Neutrophils % Seg Neuts % (Manual) 94.0 H Lymphocytes % (Manual) 5.0 L Seg Neutrophils # Seg Neutrophils # Man 14.5 H Lymphocytes # (Manual) 0.8 L PT INR APTT D-Dimer VBG pH Sodium 150 H Potassium Chloride 119.5 H Carbon Dioxide 17 L BUN 69 H Creatinine 4.0 H Glucose 274 H POC Glucose 305 H Hemoglobin A1c Lactic Acid Calcium 8.3 L Phosphorus Ferritin Alkaline Phosphatase Lactate Dehydrogenase C-Reactive Protein Total Protein Albumin Urine WBC (Auto) Urine Creatinine 11/19/20 11/19/20 11/20/20 21:35 23:40 07:31 WBC RBC Hgb Hct MCV RDW Lymph % (Auto) Lymph # (Auto) Seg Neutrophils % Seg Neuts % (Manual) Lymphocytes % (Manual) Seg Neutrophils # Seg Neutrophils # Man Lymphocytes # (Manual) PT INR APTT D-Dimer VBG pH Sodium Potassium Chloride Carbon Dioxide BUN Creatinine Glucose POC Glucose 399 H 340 H 269 H Hemoglobin A1c Lactic Acid Calcium Phosphorus Ferritin Alkaline Phosphatase Lactate Dehydrogenase C-Reactive Protein Total Protein Albumin Urine WBC (Auto) Urine Creatinine 11/20/20 11/20/20 11/20/20 10:41 11:27 15:57 WBC RBC Hgb Hct MCV RDW Lymph % (Auto) Lymph # (Auto) Seg Neutrophils % Seg Neuts % (Manual) Lymphocytes % (Manual) Seg Neutrophils # Seg Neutrophils # Man Lymphocytes # (Manual) PT INR APTT D-Dimer VBG pH Sodium 147 H Potassium Chloride 115.6 H Carbon Dioxide 15 L BUN 75 H Creatinine 3.8 H Glucose 266 H POC Glucose 212 H 189 H Hemoglobin A1c Lactic Acid Calcium 8.2 L Phosphorus Ferritin Alkaline Phosphatase Lactate Dehydrogenase C-Reactive Protein Total Protein Albumin Urine WBC (Auto) Urine Creatinine 11/20/20 11/21/20 11/21/20 20:26 05:04 05:04 WBC 14.2 H RBC 2.48 L Hgb 7.9 L Hct 23.3 L MCV RDW Lymph % (Auto) 10.4 L Lymph # (Auto) Seg Neutrophils % 85.3 H Seg Neuts % (Manual) Lymphocytes % (Manual) Seg Neutrophils # 12.1 H Seg Neutrophils # Man Lymphocytes # (Manual) PT INR APTT D-Dimer VBG pH Sodium Potassium Chloride 115.1 H Carbon Dioxide 17 L BUN 71 H Creatinine 3.6 H Glucose 249 H POC Glucose 200 H Hemoglobin A1c Lactic Acid Calcium 7.7 L Phosphorus Ferritin Alkaline Phosphatase Lactate Dehydrogenase C-Reactive Protein Total Protein Albumin Urine WBC (Auto) Urine Creatinine 11/21/20 11/21/20 11/21/20 07:49 11:42 16:15 WBC RBC Hgb Hct MCV RDW Lymph % (Auto) Lymph # (Auto) Seg Neutrophils % Seg Neuts % (Manual) Lymphocytes % (Manual) Seg Neutrophils # Seg Neutrophils # Man Lymphocytes # (Manual) PT INR APTT D-Dimer VBG pH Sodium Potassium Chloride Carbon Dioxide BUN Creatinine Glucose POC Glucose 241 H 285 H 282 H Hemoglobin A1c Lactic Acid Calcium Phosphorus Ferritin Alkaline Phosphatase Lactate Dehydrogenase C-Reactive Protein Total Protein Albumin Urine WBC (Auto) Urine Creatinine 11/21/20 11/22/20 11/22/20 20:50 07:57 08:00 WBC RBC 2.83 L Hgb 8.7 L Hct 27.3 L MCV RDW Lymph % (Auto) 10.2 L Lymph # (Auto) 1.1 L Seg Neutrophils % 84.6 H Seg Neuts % (Manual) Lymphocytes % (Manual) Seg Neutrophils # 9.0 H Seg Neutrophils # Man Lymphocytes # (Manual) PT INR APTT D-Dimer VBG pH Sodium Potassium Chloride Carbon Dioxide BUN Creatinine Glucose POC Glucose 295 H 345 H Hemoglobin A1c Lactic Acid Calcium Phosphorus Ferritin Alkaline Phosphatase Lactate Dehydrogenase C-Reactive Protein Total Protein Albumin Urine WBC (Auto) Urine Creatinine 11/22/20 11/22/20 11/22/20 08:00 08:00 11:04 WBC RBC Hgb Hct MCV RDW Lymph % (Auto) Lymph # (Auto) Seg Neutrophils % Seg Neuts % (Manual) Lymphocytes % (Manual) Seg Neutrophils # Seg Neutrophils # Man Lymphocytes # (Manual) PT 16.6 H INR 1.36 H APTT D-Dimer VBG pH Sodium Potassium Chloride 111.7 H Carbon Dioxide 17 L BUN 68 H Creatinine 3.4 H Glucose 398 H POC Glucose 367 H Hemoglobin A1c Lactic Acid Calcium 7.5 L Phosphorus Ferritin Alkaline Phosphatase Lactate Dehydrogenase C-Reactive Protein Total Protein Albumin Urine WBC (Auto) Urine Creatinine 11/22/20 11/22/20 11/22/20 13:38 14:39 16:33 WBC RBC Hgb Hct MCV RDW Lymph % (Auto) Lymph # (Auto) Seg Neutrophils % Seg Neuts % (Manual) Lymphocytes % (Manual) Seg Neutrophils # Seg Neutrophils # Man Lymphocytes # (Manual) PT INR APTT D-Dimer VBG pH Sodium Potassium Chloride Carbon Dioxide BUN Creatinine Glucose POC Glucose 371 H 365 H 243 H Hemoglobin A1c Lactic Acid Calcium Phosphorus Ferritin Alkaline Phosphatase Lactate Dehydrogenase C-Reactive Protein Total Protein Albumin Urine WBC (Auto) Urine Creatinine 11/22/20 11/22/20 11/23/20 17:40 21:38 07:25 WBC RBC Hgb Hct MCV RDW Lymph % (Auto) Lymph # (Auto) Seg Neutrophils % Seg Neuts % (Manual) Lymphocytes % (Manual) Seg Neutrophils # Seg Neutrophils # Man Lymphocytes # (Manual) PT INR APTT D-Dimer VBG pH Sodium Potassium Chloride 110.6 H Carbon Dioxide 21 L BUN 61 H Creatinine 3.2 H Glucose 129 H POC Glucose 213 H 106 H Hemoglobin A1c Lactic Acid Calcium 7.8 L Phosphorus Ferritin Alkaline Phosphatase Lactate Dehydrogenase C-Reactive Protein Total Protein Albumin Urine WBC (Auto) Urine Creatinine 11/23/20 11/23/20 11/23/20 07:53 08:45 09:23 WBC RBC Hgb Hct MCV RDW Lymph % (Auto) Lymph # (Auto) Seg Neutrophils % Seg Neuts % (Manual) Lymphocytes % (Manual) Seg Neutrophils # Seg Neutrophils # Man Lymphocytes # (Manual) PT INR APTT D-Dimer VBG pH Sodium Potassium Chloride 110.7 H Carbon Dioxide 19 L BUN 59 H Creatinine 3.1 H Glucose 128 H POC Glucose 116 H 111 H Hemoglobin A1c Lactic Acid Calcium 7.9 L Phosphorus Ferritin Alkaline Phosphatase Lactate Dehydrogenase C-Reactive Protein Total Protein Albumin Urine WBC (Auto) Urine Creatinine 11/23/20 11/23/20 11/23/20 11:43 16:21 21:46 WBC RBC Hgb Hct MCV RDW Lymph % (Auto) Lymph # (Auto) Seg Neutrophils % Seg Neuts % (Manual) Lymphocytes % (Manual) Seg Neutrophils # Seg Neutrophils # Man Lymphocytes # (Manual) PT INR APTT D-Dimer VBG pH Sodium Potassium Chloride Carbon Dioxide BUN Creatinine Glucose POC Glucose 138 H 250 H 312 H Hemoglobin A1c Lactic Acid Calcium Phosphorus Ferritin Alkaline Phosphatase Lactate Dehydrogenase C-Reactive Protein Total Protein Albumin Urine WBC (Auto) Urine Creatinine 11/24/20 11/24/20 11/24/20 07:21 08:34 11:49 WBC RBC Hgb Hct MCV RDW Lymph % (Auto) Lymph # (Auto) Seg Neutrophils % Seg Neuts % (Manual) Lymphocytes % (Manual) Seg Neutrophils # Seg Neutrophils # Man Lymphocytes # (Manual) PT INR APTT D-Dimer VBG pH Sodium Potassium Chloride Carbon Dioxide 20 L BUN 59 H Creatinine 2.8 H Glucose 294 H POC Glucose 269 H 246 H Hemoglobin A1c Lactic Acid Calcium 7.8 L Phosphorus Ferritin Alkaline Phosphatase Lactate Dehydrogenase C-Reactive Protein Total Protein Albumin Urine WBC (Auto) Urine Creatinine 11/24/20 11/24/20 11/25/20 17:04 21:50 07:50 WBC 11.1 H RBC 2.68 L Hgb 8.2 L Hct 25.2 L MCV RDW 12.9 L Lymph % (Auto) 11.3 L Lymph # (Auto) Seg Neutrophils % 83.3 H Seg Neuts % (Manual) Lymphocytes % (Manual) Seg Neutrophils # 9.3 H Seg Neutrophils # Man Lymphocytes # (Manual) PT INR APTT D-Dimer VBG pH Sodium Potassium Chloride Carbon Dioxide BUN Creatinine Glucose POC Glucose 239 H 240 H Hemoglobin A1c Lactic Acid Calcium Phosphorus Ferritin Alkaline Phosphatase Lactate Dehydrogenase C-Reactive Protein Total Protein Albumin Urine WBC (Auto) Urine Creatinine 11/25/20 11/25/20 11/25/20 07:50 08:02 12:04 WBC RBC Hgb Hct MCV RDW Lymph % (Auto) Lymph # (Auto) Seg Neutrophils % Seg Neuts % (Manual) Lymphocytes % (Manual) Seg Neutrophils # Seg Neutrophils # Man Lymphocytes # (Manual) PT INR APTT D-Dimer VBG pH Sodium 135 L Potassium Chloride Carbon Dioxide BUN 53 H Creatinine 2.4 H Glucose 149 H POC Glucose 143 H 132 H Hemoglobin A1c Lactic Acid Calcium 7.9 L Phosphorus Ferritin Alkaline Phosphatase Lactate Dehydrogenase C-Reactive Protein Total Protein Albumin Urine WBC (Auto) Urine Creatinine Allied health notes reviewed: nursing
[2020-11-25] MEDS: PRAVASTATIN 40 MG TAB PO SCH (22:06)
[2020-11-25] MEDS: INSULIN GLARGINE 100 UNITS/ML SUB-Q SCH (22:06)
--- NOTE | 2020-11-26 08:37 | XRay Report ---
CHEST 2 VIEWS INDICATION: Follow up on pulmonary infiltrates.. COMPARISON: 11/14/2020 FINDINGS: Support devices: None. Heart: Within normal limits. Lungs/pleura: A moderate left pleural effusion has developed with compressive atelectasis of the left lower lobe. Subtle focal airspace opacities are suggested lateral to the left hilum. Right basilar opacities have resolved. The right lung is clear. No pneumothorax. Additional findings: None. IMPRESSION: Right lung infiltration has resolved. A moderate left pleural effusion has developed which compresses the left lung base. Left lung infiltr ates are difficult to evaluate due to effusion or atelectasis but are grossly unchanged. Signer Name: Lauro Acevedo Jr, MD Signed: 11/26/2020 8:33 AM Workstation Name: [id number]
[2020-11-26] MEDS: INSULIN LISPRO 100 UNIT/ML SUB-Q SCH ×3 (08:52→18:25)
[2020-11-26] MEDS: FAMOTIDINE 20 MG TAB PO SCH (09:04)
[2020-11-26] MEDS: HEPARIN 5,000 UNIT/1 ML VIAL SUB-Q SCH (09:04)
[2020-11-26] MEDS: CITALOPRAM 20 MG TAB PO SCH (09:06)
--- NOTE | 2020-11-26 11:04 | Progress Note ---
Assessment and Plan Patient is weak. Patient awake but not following commands. No acute respiratory distress. Poor dental hygiene. Resting on room air. O2 saturation 97%. Patient is afebrile. Has mild leukocytosis. Chest X-ray performed 11/14/20. Chest x-ray shows interval development of patchy bibasilar airspace opacities worrisome for pneumonia in the appropriate clinical setting. Recommend follow-up chest radiograph in 6-12 weeks following treatment to ensure resolution. Repeat chest xray 11/22/20 reported Right lung infiltration has resolved. A moderate left pleural effusion has developed which compresses the left lung base. Left lung infiltrates are difficult to evaluate due to effusion or atelectasis but are grossly unchanged Patient undergone left thoracentesis. Repeat chest xray after thoracentesis 11/26/20 reported There is no pneumothorax. There is mild left basilar atelectasis. Pleural fluid wbc 2625 RBC 247.5. Patient is COVID-19 negative. Patient presently on s/c heparin, and famotidine. - Patient Problems (1) Acute hypoxemic respiratory failure Current Visit: No Status: Acute Plan to address problem: Patient is on room air. O2 saturation 97%. Continue s/c heparin. Continue famotidine. (2) Pneumonia Current Visit: Yes Status: Acute Plan to address problem: Patient was treated with ceftriaxone, and metronidazole. (3) Sepsis Current Visit: Yes Status: Acute Plan to address problem: Patient was treated with ceftriaxone, and metronidazole. (4) Acute encephalopathy Current Visit: Yes Status: Acute Plan to address problem: Management as per primary care. (5) DKA (diabetic ketoacidoses) Current Visit: Yes Status: Acute Qualifiers: Diabetes mellitus type: type 1 Plan to address problem: Management as per primary care. (6) Suspected 2019-nCoV infection Current Visit: Yes Status: Acute Plan to address problem: Negative COVID-19 test. (7) Pleural effusion, left Current Visit: Yes Status: Acute Plan to address problem: S/P Left thoracentesis. Subjective Date of service: 11/26/20 Principal diagnosis: Ac hypoxemic resp failure; Sepsis; DKA; RACH; Pneumonia; PUI COVID-19 Interval history: Patient is weak. Patient awake but not following commands. No acute respiratory distress. Poor dental hygiene. Resting on room air. O2 saturation 97%. Patient is afebrile. Has mild leukocytosis. Chest X-ray performed 11/14/20. Chest x-ray shows interval development of patchy bibasilar airspace opacities worrisome for pneumonia in the appropriate clinical setting. Recommend follow-up chest radiograph in 6-12 weeks following treatment to ensure resolution. Repeat chest xray 11/22/20 reported Right lung infiltration has resolved. A moderate left pleural effusion has developed which compresses the left lung base. Left lung infiltrates are difficult to evaluate due to effusion or atelectasis but are grossly unchanged Patient undergone left thoracentesis. Repeat chest xray after thoracentesis 11/26/20 reported There is no pneumothorax. There is mild left basilar atelectasis. Pleural fluid wbc 2625 RBC 247.5. Patient is COVID-19 negative. Patient presently on s/c heparin, and famotidine. Objective Vital Signs - 12hr 11/26/20 11/26/20 11/26/20 02:00 05:04 06:00 Temperature 98.2 F Pulse Rate 78 70 74 Respiratory 18 Rate Blood Pressure 104/63 O2 Sat by Pulse 99 Oximetry 11/26/20 09:57 Temperature Pulse Rate Respiratory Rate Blood Pressure O2 Sat by Pulse 100 Oximetry Constitutional: no acute distress, alert Eyes: non-icteric ENT: oropharynx moist, other (very poor dentition) Neck: supple, no lymphadenopathy, no JVD Effort: mildly labored Ascultation: Bilateral: diminished breath sounds, rhonchi Percussion: Bilateral: not dull Cardiovascular: regular rate and rhythm Gastrointestinal: normoactive bowel sounds, soft, non-tender, non-distended Integumentary: other (see [facility] notes) Extremities: no cyanosis, no edema, pink and warm, pulses normal Neurologic: pupils equal and round, CN II-XII normal, motor strength normal and, other (+ cognitive dysfunction) Psychiatric: other (+ cognitive dysfunction) CBC and BMP: 11/25/20 07:50 11/25/20 07:50 ABG, PT/INR, D-dimer: PT/INR, D-dimer PT 16.6 Sec. (12.2-14.9) H 11/22/20 08:00 INR 1.36 (0.87-1.13) H 11/22/20 08:00 D-Dimer 2876.26 ng/mlDDU (0-234) H 11/14/20 18:30 Abnormal lab findings: Abnormal Labs 11/14/20 11/14/20 11/14/20 16:23 16:23 16:23 WBC 14.5 H RBC 3.48 L Hgb Hct MCV 101 H RDW Lymph % (Auto) Lymph # (Auto) Seg Neutrophils % Seg Neuts % (Manual) 92.0 H Lymphocytes % (Manual) 5.0 L Seg Neutrophils # Seg Neutrophils # Man 13.3 H Lymphocytes # (Manual) 0.7 L PT 15.3 H INR 1.21 H APTT 23.1 L D-Dimer VBG pH Sodium Potassium Chloride Carbon Dioxide BUN Creatinine Glucose POC Glucose Hemoglobin A1c Lactic Acid 7.50 H* Calcium Phosphorus Ferritin Alkaline Phosphatase Lactate Dehydrogenase C-Reactive Protein Total Protein Albumin Urine WBC (Auto) Urine Creatinine 11/14/20 11/14/20 11/14/20 16:23 16:23 16:27 WBC RBC Hgb Hct MCV RDW Lymph % (Auto) Lymph # (Auto) Seg Neutrophils % Seg Neuts % (Manual) Lymphocytes % (Manual) Seg Neutrophils # Seg Neutrophils # Man Lymphocytes # (Manual) PT INR APTT D-Dimer VBG pH 7.216 L Sodium 166 H* Potassium Chloride 120.8 H Carbon Dioxide 6 L* BUN 36 H Creatinine 1.9 H Glucose 765 H* POC Glucose Hemoglobin A1c Lactic Acid Calcium 11.4 H Phosphorus Ferritin Alkaline Phosphatase 259 H Lactate Dehydrogenase C-Reactive Protein Total Protein Albumin 3.3 L Urine WBC (Auto) 38.0 H Urine Creatinine 11/14/20 11/14/20 11/14/20 18:22 18:22 18:22 WBC RBC Hgb Hct MCV RDW Lymph % (Auto) Lymph # (Auto) Seg Neutrophils % Seg Neuts % (Manual) Lymphocytes % (Manual) Seg Neutrophils # Seg Neutrophils # Man Lymphocytes # (Manual) PT INR APTT D-Dimer VBG pH Sodium Potassium Chloride Carbon Dioxide 11 L BUN 32 H Creatinine 1.5 H Glucose 695 H* POC Glucose Hemoglobin A1c Lactic Acid 2.60 H* Calcium Phosphorus 1.30 L Ferritin Alkaline Phosphatase Lactate Dehydrogenase C-Reactive Protein Total Protein Albumin Urine WBC (Auto) Urine Creatinine 11/14/20 11/14/20 11/14/20 18:30 18:30 18:30 WBC RBC Hgb Hct MCV RDW Lymph % (Auto) Lymph # (Auto) Seg Neutrophils % Seg Neuts % (Manual) Lymphocytes % (Manual) Seg Neutrophils # Seg Neutrophils # Man Lymphocytes # (Manual) PT INR APTT D-Dimer 2876.26 H VBG pH Sodium Potassium Chloride Carbon Dioxide BUN Creatinine Glucose POC Glucose Hemoglobin A1c Lactic Acid Calcium Phosphorus Ferritin 623.7 H Alkaline Phosphatase Lactate Dehydrogenase 247 H C-Reactive Protein 52.00 H Total Protein Albumin Urine WBC (Auto) Urine Creatinine 11/14/20 11/14/20 11/14/20 20:23 23:08 23:08 WBC RBC Hgb Hct MCV RDW Lymph % (Auto) Lymph # (Auto) Seg Neutrophils % Seg Neuts % (Manual) Lymphocytes % (Manual) Seg Neutrophils # Seg Neutrophils # Man Lymphocytes # (Manual) PT INR APTT D-Dimer VBG pH Sodium Potassium 2.6 L* D Chloride 109.4 H Carbon Dioxide 8 L* 10 L BUN 33 H 32 H Creatinine 1.6 H < 0.2 L D Glucose 753 H* 509 H* POC Glucose Hemoglobin A1c Lactic Acid 5.70 H* Calcium Phosphorus Ferritin Alkaline Phosphatase Lactate Dehydrogenase C-Reactive Protein Total Protein Albumin Urine WBC (Auto) Urine Creatinine 11/14/20 11/15/20 11/15/20 23:14 00:01 00:54 WBC RBC Hgb Hct MCV RDW Lymph % (Auto) Lymph # (Auto) Seg Neutrophils % Seg Neuts % (Manual) Lymphocytes % (Manual) Seg Neutrophils # Seg Neutrophils # Man Lymphocytes # (Manual) PT INR APTT D-Dimer VBG pH Sodium Potassium Chloride Carbon Dioxide BUN Creatinine Glucose POC Glucose 427 H 375 H 280 H Hemoglobin A1c Lactic Acid Calcium Phosphorus Ferritin Alkaline Phosphatase Lactate Dehydrogenase C-Reactive Protein Total Protein Albumin Urine WBC (Auto) Urine Creatinine 11/15/20 11/15/20 11/15/20 01:58 02:56 04:53 WBC RBC Hgb Hct MCV RDW Lymph % (Auto) Lymph # (Auto) Seg Neutrophils % Seg Neuts % (Manual) Lymphocytes % (Manual) Seg Neutrophils # Seg Neutrophils # Man Lymphocytes # (Manual) PT INR APTT D-Dimer VBG pH Sodium Potassium Chloride Carbon Dioxide BUN Creatinine Glucose POC Glucose 191 H 124 H 140 H Hemoglobin A1c Lactic Acid Calcium Phosphorus Ferritin Alkaline Phosphatase Lactate Dehydrogenase C-Reactive Protein Total Protein Albumin Urine WBC (Auto) Urine Creatinine 11/15/20 11/15/20 11/15/20 06:18 06:18 06:18 WBC RBC 2.74 L Hgb 8.9 L Hct 26.1 L D MCV RDW 12.8 L Lymph % (Auto) Lymph # (Auto) Seg Neutrophils % Seg Neuts % (Manual) 81.0 H Lymphocytes % (Manual) Seg Neutrophils # Seg Neutrophils # Man 8.7 H Lymphocytes # (Manual) PT INR APTT D-Dimer VBG pH Sodium 149 H 149 H Potassium Chloride 116.2 H 117.4 H Carbon Dioxide 20 L D 20 L BUN 33 H 32 H Creatinine 1.6 H D 1.6 H Glucose 236 H 231 H POC Glucose Hemoglobin A1c Lactic Acid Calcium Phosphorus Ferritin Alkaline Phosphatase 184 H Lactate Dehydrogenase C-Reactive Protein Total Protein 5.8 L D Albumin 2.5 L Urine WBC (Auto) Urine Creatinine 11/15/20 11/15/20 11/15/20 06:24 10:15 10:18 WBC RBC Hgb Hct MCV RDW Lymph % (Auto) Lymph # (Auto) Seg Neutrophils % Seg Neuts % (Manual) Lymphocytes % (Manual) Seg Neutrophils # Seg Neutrophils # Man Lymphocytes # (Manual) PT INR APTT D-Dimer VBG pH Sodium 148 H Potassium Chloride 116.4 H Carbon Dioxide 19 L BUN 33 H Creatinine 1.8 H Glucose 133 H POC Glucose 223 H Hemoglobin A1c 10.8 H Lactic Acid Calcium Phosphorus Ferritin Alkaline Phosphatase Lactate Dehydrogenase C-Reactive Protein Total Protein Albumin Urine WBC (Auto) Urine Creatinine 11/15/20 11/15/20 11/15/20 12:20 17:44 18:31 WBC RBC Hgb Hct MCV RDW Lymph % (Auto) Lymph # (Auto) Seg Neutrophils % Seg Neuts % (Manual) Lymphocytes % (Manual) Seg Neutrophils # Seg Neutrophils # Man Lymphocytes # (Manual) PT INR APTT D-Dimer VBG pH Sodium 149 H Potassium Chloride 114.2 H Carbon Dioxide 15 L BUN 37 H Creatinine 2.0 H Glucose 400 H POC Glucose 266 H 350 H Hemoglobin A1c Lactic Acid Calcium Phosphorus Ferritin Alkaline Phosphatase Lactate Dehydrogenase C-Reactive Protein Total Protein Albumin Urine WBC (Auto) Urine Creatinine 11/15/20 11/16/20 11/16/20 21:40 07:00 07:56 WBC RBC Hgb Hct MCV RDW Lymph % (Auto) Lymph # (Auto) Seg Neutrophils % Seg Neuts % (Manual) Lymphocytes % (Manual) Seg Neutrophils # Seg Neutrophils # Man Lymphocytes # (Manual) PT INR APTT D-Dimer VBG pH Sodium 152 H Potassium Chloride 118.9 H Carbon Dioxide 17 L BUN 43 H Creatinine 2.7 H Glucose 204 H POC Glucose 195 H 222 H Hemoglobin A1c Lactic Acid Calcium 8.0 L Phosphorus 4.70 H D Ferritin Alkaline Phosphatase Lactate Dehydrogenase C-Reactive Protein Total Protein Albumin Urine WBC (Auto) Urine Creatinine 11/16/20 11/16/20 11/16/20 11:40 17:06 21:07 WBC RBC Hgb Hct MCV RDW Lymph % (Auto) Lymph # (Auto) Seg Neutrophils % Seg Neuts % (Manual) Lymphocytes % (Manual) Seg Neutrophils # Seg Neutrophils # Man Lymphocytes # (Manual) PT INR APTT D-Dimer VBG pH Sodium Potassium Chloride Carbon Dioxide BUN Creatinine Glucose POC Glucose 201 H 315 H 230 H Hemoglobin A1c Lactic Acid Calcium Phosphorus Ferritin Alkaline Phosphatase Lactate Dehydrogenase C-Reactive Protein Total Protein Albumin Urine WBC (Auto) Urine Creatinine 11/17/20 11/17/20 11/17/20 07:57 10:30 11:17 WBC RBC Hgb Hct MCV RDW Lymph % (Auto) Lymph # (Auto) Seg Neutrophils % Seg Neuts % (Manual) Lymphocytes % (Manual) Seg Neutrophils # Seg Neutrophils # Man Lymphocytes # (Manual) PT INR APTT D-Dimer VBG pH Sodium 153 H Potassium 3.4 L Chloride 122.1 H Carbon Dioxide 19 L BUN 54 H Creatinine 3.6 H Glucose 108 H POC Glucose 253 H 106 H Hemoglobin A1c Lactic Acid Calcium Phosphorus Ferritin Alkaline Phosphatase Lactate Dehydrogenase C-Reactive Protein Total Protein Albumin Urine WBC (Auto) Urine Creatinine 11/17/20 11/17/20 11/17/20 16:00 20:20 20:20 WBC RBC Hgb Hct MCV RDW Lymph % (Auto) Lymph # (Auto) Seg Neutrophils % Seg Neuts % (Manual) Lymphocytes % (Manual) Seg Neutrophils # Seg Neutrophils # Man Lymphocytes # (Manual) PT INR APTT D-Dimer VBG pH Sodium Potassium Chloride Carbon Dioxide BUN Creatinine Glucose POC Glucose 198 H Hemoglobin A1c Lactic Acid Calcium Phosphorus Ferritin Alkaline Phosphatase Lactate Dehydrogenase C-Reactive Protein Total Protein Albumin Urine WBC (Auto) 66.0 H Urine Creatinine 67.2 H 11/17/20 11/18/20 11/18/20 21:23 07:43 09:23 WBC 21.0 H RBC 2.97 L Hgb 9.1 L Hct 28.0 L MCV RDW Lymph % (Auto) Lymph # (Auto) Seg Neutrophils % Seg Neuts % (Manual) 89.0 H Lymphocytes % (Manual) 6.0 L Seg Neutrophils # Seg Neutrophils # Man 18.7 H Lymphocytes # (Manual) PT INR APTT D-Dimer VBG pH Sodium Potassium Chloride Carbon Dioxide BUN Creatinine Glucose POC Glucose 193 H 181 H Hemoglobin A1c Lactic Acid Calcium Phosphorus Ferritin Alkaline Phosphatase Lactate Dehydrogenase C-Reactive Protein Total Protein Albumin Urine WBC (Auto) Urine Creatinine 11/18/20 11/18/20 11/18/20 09:23 12:54 16:20 WBC RBC Hgb Hct MCV RDW Lymph % (Auto) Lymph # (Auto) Seg Neutrophils % Seg Neuts % (Manual) Lymphocytes % (Manual) Seg Neutrophils # Seg Neutrophils # Man Lymphocytes # (Manual) PT INR APTT D-Dimer VBG pH Sodium 152 H Potassium Chloride 119.1 H Carbon Dioxide 19 L BUN 62 H Creatinine 3.9 H Glucose 224 H POC Glucose 297 H 340 H Hemoglobin A1c Lactic Acid Calcium 8.1 L Phosphorus Ferritin Alkaline Phosphatase Lactate Dehydrogenase C-Reactive Protein Total Protein Albumin Urine WBC (Auto) Urine Creatinine 11/18/20 11/19/20 11/19/20 21:28 07:08 07:08 WBC 15.4 H RBC 2.85 L Hgb 8.7 L Hct 26.5 L MCV RDW Lymph % (Auto) Lymph # (Auto) Seg Neutrophils % Seg Neuts % (Manual) 94.0 H Lymphocytes % (Manual) 5.0 L Seg Neutrophils # Seg Neutrophils # Man 14.5 H Lymphocytes # (Manual) 0.8 L PT INR APTT D-Dimer VBG pH Sodium 150 H Potassium Chloride 119.5 H Carbon Dioxide 17 L BUN 69 H Creatinine 4.0 H Glucose 274 H POC Glucose 305 H Hemoglobin A1c Lactic Acid Calcium 8.3 L Phosphorus Ferritin Alkaline Phosphatase Lactate Dehydrogenase C-Reactive Protein Total Protein Albumin Urine WBC (Auto) Urine Creatinine 11/19/20 11/19/20 11/20/20 21:35 23:40 07:31 WBC RBC Hgb Hct MCV RDW Lymph % (Auto) Lymph # (Auto) Seg Neutrophils % Seg Neuts % (Manual) Lymphocytes % (Manual) Seg Neutrophils # Seg Neutrophils # Man Lymphocytes # (Manual) PT INR APTT D-Dimer VBG pH Sodium Potassium Chloride Carbon Dioxide BUN Creatinine Glucose POC Glucose 399 H 340 H 269 H Hemoglobin A1c Lactic Acid Calcium Phosphorus Ferritin Alkaline Phosphatase Lactate Dehydrogenase C-Reactive Protein Total Protein Albumin Urine WBC (Auto) Urine Creatinine 11/20/20 11/20/20 11/20/20 10:41 11:27 15:57 WBC RBC Hgb Hct MCV RDW Lymph % (Auto) Lymph # (Auto) Seg Neutrophils % Seg Neuts % (Manual) Lymphocytes % (Manual) Seg Neutrophils # Seg Neutrophils # Man Lymphocytes # (Manual) PT INR APTT D-Dimer VBG pH Sodium 147 H Potassium Chloride 115.6 H Carbon Dioxide 15 L BUN 75 H Creatinine 3.8 H Glucose 266 H POC Glucose 212 H 189 H Hemoglobin A1c Lactic Acid Calcium 8.2 L Phosphorus Ferritin Alkaline Phosphatase Lactate Dehydrogenase C-Reactive Protein Total Protein Albumin Urine WBC (Auto) Urine Creatinine 11/20/20 11/21/20 11/21/20 20:26 05:04 05:04 WBC 14.2 H RBC 2.48 L Hgb 7.9 L Hct 23.3 L MCV RDW Lymph % (Auto) 10.4 L Lymph # (Auto) Seg Neutrophils % 85.3 H Seg Neuts % (Manual) Lymphocytes % (Manual) Seg Neutrophils # 12.1 H Seg Neutrophils # Man Lymphocytes # (Manual) PT INR APTT D-Dimer VBG pH Sodium Potassium Chloride 115.1 H Carbon Dioxide 17 L BUN 71 H Creatinine 3.6 H Glucose 249 H POC Glucose 200 H Hemoglobin A1c Lactic Acid Calcium 7.7 L Phosphorus Ferritin Alkaline Phosphatase Lactate Dehydrogenase C-Reactive Protein Total Protein Albumin Urine WBC (Auto) Urine Creatinine 11/21/20 11/21/20 11/21/20 07:49 11:42 16:15 WBC RBC Hgb Hct MCV RDW Lymph % (Auto) Lymph # (Auto) Seg Neutrophils % Seg Neuts % (Manual) Lymphocytes % (Manual) Seg Neutrophils # Seg Neutrophils # Man Lymphocytes # (Manual) PT INR APTT D-Dimer VBG pH Sodium Potassium Chloride Carbon Dioxide BUN Creatinine Glucose POC Glucose 241 H 285 H 282 H Hemoglobin A1c Lactic Acid Calcium Phosphorus Ferritin Alkaline Phosphatase Lactate Dehydrogenase C-Reactive Protein Total Protein Albumin Urine WBC (Auto) Urine Creatinine 11/21/20 11/22/20 11/22/20 20:50 07:57 08:00 WBC RBC 2.83 L Hgb 8.7 L Hct 27.3 L MCV RDW Lymph % (Auto) 10.2 L Lymph # (Auto) 1.1 L Seg Neutrophils % 84.6 H Seg Neuts % (Manual) Lymphocytes % (Manual) Seg Neutrophils # 9.0 H Seg Neutrophils # Man Lymphocytes # (Manual) PT INR APTT D-Dimer VBG pH Sodium Potassium Chloride Carbon Dioxide BUN Creatinine Glucose POC Glucose 295 H 345 H Hemoglobin A1c Lactic Acid Calcium Phosphorus Ferritin Alkaline Phosphatase Lactate Dehydrogenase C-Reactive Protein Total Protein Albumin Urine WBC (Auto) Urine Creatinine 11/22/20 11/22/20 11/22/20 08:00 08:00 11:04 WBC RBC Hgb Hct MCV RDW Lymph % (Auto) Lymph # (Auto) Seg Neutrophils % Seg Neuts % (Manual) Lymphocytes % (Manual) Seg Neutrophils # Seg Neutrophils # Man Lymphocytes # (Manual) PT 16.6 H INR 1.36 H APTT D-Dimer VBG pH Sodium Potassium Chloride 111.7 H Carbon Dioxide 17 L BUN 68 H Creatinine 3.4 H Glucose 398 H POC Glucose 367 H Hemoglobin A1c Lactic Acid Calcium 7.5 L Phosphorus Ferritin Alkaline Phosphatase Lactate Dehydrogenase C-Reactive Protein Total Protein Albumin Urine WBC (Auto) Urine Creatinine 11/22/20 11/22/20 11/22/20 13:38 14:39 16:33 WBC RBC Hgb Hct MCV RDW Lymph % (Auto) Lymph # (Auto) Seg Neutrophils % Seg Neuts % (Manual) Lymphocytes % (Manual) Seg Neutrophils # Seg Neutrophils # Man Lymphocytes # (Manual) PT INR APTT D-Dimer VBG pH Sodium Potassium Chloride Carbon Dioxide BUN Creatinine Glucose POC Glucose 371 H 365 H 243 H Hemoglobin A1c Lactic Acid Calcium Phosphorus Ferritin Alkaline Phosphatase Lactate Dehydrogenase C-Reactive Protein Total Protein Albumin Urine WBC (Auto) Urine Creatinine 11/22/20 11/22/20 11/23/20 17:40 21:38 07:25 WBC RBC Hgb Hct MCV RDW Lymph % (Auto) Lymph # (Auto) Seg Neutrophils % Seg Neuts % (Manual) Lymphocytes % (Manual) Seg Neutrophils # Seg Neutrophils # Man Lymphocytes # (Manual) PT INR APTT D-Dimer VBG pH Sodium Potassium Chloride 110.6 H Carbon Dioxide 21 L BUN 61 H Creatinine 3.2 H Glucose 129 H POC Glucose 213 H 106 H Hemoglobin A1c Lactic Acid Calcium 7.8 L Phosphorus Ferritin Alkaline Phosphatase Lactate Dehydrogenase C-Reactive Protein Total Protein Albumin Urine WBC (Auto) Urine Creatinine 11/23/20 11/23/20 11/23/20 07:53 08:45 09:23 WBC RBC Hgb Hct MCV RDW Lymph % (Auto) Lymph # (Auto) Seg Neutrophils % Seg Neuts % (Manual) Lymphocytes % (Manual) Seg Neutrophils # Seg Neutrophils # Man Lymphocytes # (Manual) PT INR APTT D-Dimer VBG pH Sodium Potassium Chloride 110.7 H Carbon Dioxide 19 L BUN 59 H Creatinine 3.1 H Glucose 128 H POC Glucose 116 H 111 H Hemoglobin A1c Lactic Acid Calcium 7.9 L Phosphorus Ferritin Alkaline Phosphatase Lactate Dehydrogenase C-Reactive Protein Total Protein Albumin Urine WBC (Auto) Urine Creatinine 11/23/20 11/23/20 11/23/20 11:43 16:21 21:46 WBC RBC Hgb Hct MCV RDW Lymph % (Auto) Lymph # (Auto) Seg Neutrophils % Seg Neuts % (Manual) Lymphocytes % (Manual) Seg Neutrophils # Seg Neutrophils # Man Lymphocytes # (Manual) PT INR APTT D-Dimer VBG pH Sodium Potassium Chloride Carbon Dioxide BUN Creatinine Glucose POC Glucose 138 H 250 H 312 H Hemoglobin A1c Lactic Acid Calcium Phosphorus Ferritin Alkaline Phosphatase Lactate Dehydrogenase C-Reactive Protein Total Protein Albumin Urine WBC (Auto) Urine Creatinine 11/24/20 11/24/20 11/24/20 07:21 08:34 11:49 WBC RBC Hgb Hct MCV RDW Lymph % (Auto) Lymph # (Auto) Seg Neutrophils % Seg Neuts % (Manual) Lymphocytes % (Manual) Seg Neutrophils # Seg Neutrophils # Man Lymphocytes # (Manual) PT INR APTT D-Dimer VBG pH Sodium Potassium Chloride Carbon Dioxide 20 L BUN 59 H Creatinine 2.8 H Glucose 294 H POC Glucose 269 H 246 H Hemoglobin A1c Lactic Acid Calcium 7.8 L Phosphorus Ferritin Alkaline Phosphatase Lactate Dehydrogenase C-Reactive Protein Total Protein Albumin Urine WBC (Auto) Urine Creatinine 11/24/20 11/24/20 11/25/20 17:04 21:50 07:50 WBC 11.1 H RBC 2.68 L Hgb 8.2 L Hct 25.2 L MCV RDW 12.9 L Lymph % (Auto) 11.3 L Lymph # (Auto) Seg Neutrophils % 83.3 H Seg Neuts % (Manual) Lymphocytes % (Manual) Seg Neutrophils # 9.3 H Seg Neutrophils # Man Lymphocytes # (Manual) PT INR APTT D-Dimer VBG pH Sodium Potassium Chloride Carbon Dioxide BUN Creatinine Glucose POC Glucose 239 H 240 H Hemoglobin A1c Lactic Acid Calcium Phosphorus Ferritin Alkaline Phosphatase Lactate Dehydrogenase C-Reactive Protein Total Protein Albumin Urine WBC (Auto) Urine Creatinine 11/25/20 11/25/20 11/25/20 07:50 08:02 12:04 WBC RBC Hgb Hct MCV RDW Lymph % (Auto) Lymph # (Auto) Seg Neutrophils % Seg Neuts % (Manual) Lymphocytes % (Manual) Seg Neutrophils # Seg Neutrophils # Man Lymphocytes # (Manual) PT INR APTT D-Dimer VBG pH Sodium 135 L Potassium Chloride Carbon Dioxide BUN 53 H Creatinine 2.4 H Glucose 149 H POC Glucose 143 H 132 H Hemoglobin A1c Lactic Acid Calcium 7.9 L Phosphorus Ferritin Alkaline Phosphatase Lactate Dehydrogenase C-Reactive Protein Total Protein Albumin Urine WBC (Auto) Urine Creatinine 11/25/20 11/25/20 11/25/20 15:22 17:30 22:01 WBC RBC Hgb Hct MCV RDW Lymph % (Auto) Lymph # (Auto) Seg Neutrophils % Seg Neuts % (Manual) Lymphocytes % (Manual) Seg Neutrophils # Seg Neutrophils # Man Lymphocytes # (Manual) PT INR APTT D-Dimer VBG pH Sodium Potassium Chloride Carbon Dioxide BUN Creatinine Glucose POC Glucose 149 H 147 H 177 H Hemoglobin A1c Lactic Acid Calcium Phosphorus Ferritin Alkaline Phosphatase Lactate Dehydrogenase C-Reactive Protein Total Protein Albumin Urine WBC (Auto) Urine Creatinine 11/26/20 05:58 WBC RBC Hgb Hct MCV RDW Lymph % (Auto) Lymph # (Auto) Seg Neutrophils % Seg Neuts % (Manual) Lymphocytes % (Manual) Seg Neutrophils # Seg Neutrophils # Man Lymphocytes # (Manual) PT INR APTT D-Dimer VBG pH Sodium Potassium Chloride Carbon Dioxide BUN Creatinine Glucose POC Glucose 213 H Hemoglobin A1c Lactic Acid Calcium Phosphorus Ferritin Alkaline Phosphatase Lactate Dehydrogenase C-Reactive Protein Total Protein Albumin Urine WBC (Auto) Urine Creatinine Chest x-ray: report reviewed, image reviewed Additional Studies: CHEST 1 VIEW 11/26/2020 3:51 PM INDICATION / CLINICAL INFORMATION: left pl effusion, recent thora. COMPARISON: 11/26/2020, 0805 hours FINDINGS: SUPPORT DEVICES: None. HEART / MEDIASTINUM: Unchanged LUNGS / PLEURA: Patient status post left thoracentesis with removal of most of the left pleural fluid. No pneumothorax. There is mild atelectasis in the left lung base. ADDITIONAL FINDINGS: No significant additional findings. IMPRESSION: 1. Status post left thoracentesis. There is no pneumothorax. There is mild left basilar atelectasis. CHEST 2 VIEWS 11/26/20 INDICATION: Follow up on pulmonary infiltrates.. COMPARISON: 11/14/2020 FINDINGS: Support devices: None. Heart: Within normal limits. Lungs/pleura: A moderate left pleural effusion has developed with compressive atelectasis of the left lower lobe. Subtle focal airspace opacities are suggested lateral to the left hilum. Right basilar opacities have resolved. The right lung is clear. No pneumothorax. Additional findings: None. IMPRESSION: Right lung infiltration has resolved. A moderate left pleural effusion has developed which compresses the left lung base. Left lung infiltrates are difficult to evaluate due to effusion or atelectasis but are grossly unchanged Allied health notes reviewed: nursing
--- NOTE | 2020-11-26 12:23 | Progress Note ---
Assessment and Plan 1. Acute kidney injury: Vasomotor RACH superimposed on CKD in the setting of sepsis. ATN likely. Renal US and CT abdomen negative for hydro. Monitor renal function. Creatinine level continue to improve. Renal prognosis is guarded. Avoid nephrotoxic agents. Meds dosage based on GFR. 2. FEN: Hypernatremia, improved, monitor. Hyperchloremic metabolic acidosis, improved, monitor. Monitor lytes and volume status. 3. Sepsis: Likely 2/2 PNA. Covid test negative. Follow cultures. 4. Bilateral PNA: S/p Abx. Covid test negative. 5. DKA: Improved. 6. Dysphagia: S/p PEG placement. 7. Anemia: Monitor. 8. HTN: Monitor BP. 9. Metabolic encephalopathy, POA. - Subjective: Patient was seen and examined at the bedside. - General Appearance: General appearance: appears stated age, not in distress, appears chronically ill HEENT: ATNC, CAITY Neck: Trachea midline Respiratory: ctab Cardiology: regular, S1S2, no murmur Gastrointestinal: normoactive bowel sounds, not tender, not distended, PEG tube noted Integumentary: no rash, warm and dry Neurologic: alert, non-verbal, moving extremities Ext: no edema Subjective Date of service: 11/26/20 Principal diagnosis: Ac hypoxemic resp failure; Sepsis; DKA; RACH; Pneumonia; PUI COVID-19 Objective - Vital Signs Vital signs: Vital Signs - 12hr 11/26/20 11/26/20 11/26/20 02:00 05:04 06:00 Temperature 98.2 F Pulse Rate 78 70 74 Respiratory 18 Rate Blood Pressure 104/63 O2 Sat by Pulse 99 Oximetry 11/26/20 09:57 Temperature Pulse Rate Respiratory Rate Blood Pressure O2 Sat by Pulse 100 Oximetry - Lab 11/25/20 07:50 11/25/20 07:50 Most recent lab results Calcium 7.9 mg/dL (8.4-10.2) L 11/25/20 07:50 Phosphorus 3.90 mg/dL (2.5-4.5) 11/20/20 10:41 Magnesium 2.20 mg/dL (1.7-2.3) 11/14/20 18:22 Urine Creatinine 67.2 mg/dL (0.1-20.0) H 11/17/20 20:20 Urine Sodium 74 mmol/L 11/17/20 20:20 Medications & Allergies - Medications Allergies/Adverse Reactions: Allergies No Known Allergies Allergy (Verified 02/26/20 10:24) Home Medications: Home Medications Medication Instructions Recorded Confirmed Last Taken Type Citalopram [Celexa] 20 mg PO QDAY 01/25/20 11/20/20 Unknown History Pravastatin [Pravachol] 40 mg PO QHS 01/25/20 11/20/20 Unknown History Acetaminophen [Mapap] 650 mg PO BID PRN 02/26/20 11/20/20 Unknown History Ascorbic Acid [Vitamin C with Chetna 500 mg PO DAILY 02/26/20 11/20/20 Unknown History Hips] Glimepiride [Amaryl] 4 mg PO QAM 02/26/20 11/20/20 Unknown History Insulin Lispro [Humalog] 5 units SQ AC 02/26/20 11/20/20 Unknown History Multivit-Min/Ferrous Fumarate 15 mg PO DAILY 02/26/20 11/20/20 Unknown History [Multivitamin with Minerals Tab] Apixaban [Eliquis] 2.5 mg PO BID #30 tablet 03/01/20 11/20/20 Unknown Rx Famotidine [Pepcid] 20 mg PO QDAY #30 tablet 11/26/20 Unknown Rx Insulin Glargine [Lantus VIAL] 30 units SUB-Q QHS #10 units 11/26/20 Unknown Rx Lipase/Protease/Amylase [Pancreaze 1 each FEEDTUBE PRN PRN capsule 11/26/20 Unknown Rx 10,500 Unit] Active Medications: Generic Name Dose Route Start Last Admin Trade Name Freq PRN Reason Stop Dose Admin Acetaminophen 650 mg 11/14/20 18:37 11/16/20 17:23 Acetaminophen 325 Mg Tab PO 650 mg Q6H PRN Administration Pain, Mild (1-3) Lipase/Protease/Amylase 1 each 11/22/20 16:13 Lipase 10,500/Protease 25,000/Amylase 43,750 (Units) Dr Braun FEEDTUBE PRN PRN For Clogged Feeding Tube Citalopram Hydrobromide 20 mg 11/16/20 10:00 11/26/20 09:06 Citalopram 20 Mg Tab PO 20 mg QDAY SHAHLA Administration Dextrose 50 ml 11/15/20 10:20 Dextrose 50% In Water (25gm) 50 Ml Syringe IV Q30MIN PRN Hypoglycemia Protocol Famotidine 20 mg 11/16/20 10:00 11/26/20 09:04 Famotidine 20 Mg Tab PO 20 mg QDAY SHAHLA Administration Heparin Sodium (Porcine) 5,000 unit 11/15/20 22:00 11/26/20 09:04 Heparin 5,000 Unit/1 Ml Vial SUB-Q 5,000 unit Q12HR SHAHLA Administration Insulin Glargine 30 units 11/22/20 13:08 11/25/20 22:06 Insulin Glargine 100 Units/Ml SUB-Q 30 units QHS SHAHLA Administration Insulin Human Lispro 0 unit 11/15/20 11:30 11/26/20 12:04 Insulin Lispro 100 Unit/Ml SUB-Q 1 unit ACHS SHAHLA Administration Protocol Ondansetron HCl 4 mg 11/22/20 13:59 Ondansetron 4 Mg/2 Ml Inj IV ONCE PRN Nausea And Vomiting Oxycodone/Acetaminophen 1 tab 11/15/20 11:45 11/19/20 22:18 Oxycodone /Acetaminophen 5-325mg Tab PO 1 tab Q4H PRN Administration Pain, Moderate (4-6) Pravastatin Sodium 40 mg 11/15/20 22:00 11/25/20 22:06 Pravastatin 40 Mg Tab PO 40 mg QHS SHAHLA Administration Simple Syrup 15 ml 11/22/20 16:13 Simple Syrup 15 Ml FEEDTUBE PRN PRN Hypoglycemia Simple Syrup 30 ml 11/22/20 16:13 Simple Syrup 15 Ml FEEDTUBE PRN PRN Hypoglycemia Sodium Bicarbonate 325 mg 11/22/20 16:13 Sodium Bicarbonate 325 Mg Tab FEEDTUBE PRN PRN For Clogged Feeding Tube Sodium Chloride 10 ml 11/14/20 22:00 11/26/20 12:05 Sodium Chloride 0.9% 10 Ml Flush Syringe IV 10 ml BID SHAHLA Administration Sodium Chloride 10 ml 11/14/20 18:33 Sodium Chloride 0.9% 10 Ml Flush Syringe IV PRN PRN LINE FLUSH
--- NOTE | 2020-11-26 12:44 | Discharge Summary ---
Providers - Providers Date of Admission: 11/14/20 18:33 Attending physician: ELEONORA MEADOWS MD 11/14/20 18:33 Consult to Physician [CONS] Routine Comment: Consulting Provider: CHANTALE LEAL Physician Instructions: Reason For Exam: sepsis, dka, pui 11/15/20 10:20 Consult to Dietitian/Nutrition [CONS] Routine Physician Instructions: Reason For Exam: oral supplement Reason for Consult: Diet education 11/15/20 11:31 Consult to Physician [CONS] Routine Comment: august/ julio césar Consulting Provider: LAKE VELASQUEZ Physician Instructions: Reason For Exam: covid pui 11/16/20 08:49 Consult to Physician [CONS] Routine Comment: Consulting Provider: ABBEY JULIO Physician Instructions: Reason For Exam: ARF 11/16/20 10:45 Speech Therapy Evaluation and Treat [CONS] Stat Reason For Exam: difficulty swallowing 11/20/20 13:02 Consult to Dietitian/Nutrition [CONS] Routine Physician Instructions: Assess nutrtn needs, initiate, modify, manage TF Reason For Exam: Reason for Consult: Write/Manage Tube Feeding Reason for Consult: Write/Manage Tube Feeding 11/20/20 13:03 Consult to Physician [CONS] Routine Comment: Consulting Provider: FABRICIO KOROMA Physician Instructions: Reason For Exam: Dysphagia/PEG placement 11/20/20 17:29 Consult to Physician [CONS] Routine Comment: Consulting Provider: NOHELIA CAMPOS Physician Instructions: Reason For Exam: PEG 11/23/20 10:44 Consult to Dietitian/Nutrition [CONS] Routine Physician Instructions: Reason For Exam: Reason for Consult: Malnutrition Primary care physician: GUILHERME JONES Hospitalization Reason for admission: sepsis Condition: Stable Hospital course: This is a 55-year-old female who is a resident of [facility] with vascular dementia, depression, developmental delay, debility, diabetes mellitus, hyperlipidemia, recent COVID 19 infection, chronic kidney disease and recurrent DKA who presents the emergency department on 11/14 with reported confusion and ill-appearing over the past day and hypoglycemia. Evaluation in the emergency department revealed sepsis with tachycardia, febrile to 102.8, tachypnea, lactic acidosis and RACH suspected secondary to urinary tract infection/?covid 19 pna, diabetic ketoacidosis, metabolic acidosis, toxic metabolic encephalopathy, acute kidney injury and hypernatremia. Patient was in sepsis, DKA, follow DKA pathway on insulin drip in ICU, stabilized and transferred to the floor COVID-19 positive, COVID-19 negative, ID following Assessment Dysphagia; failed swallow eval Sepsis Bilateral pneumonia Urinary tract infection Gingivitis and periodontitis Covid 19 negative DKA-resolved: Uncontrolled diabetes mellitus RACH /worsening renal function nephrology considering hemodialysis Toxic metabolic encephalopathy/multifactorial Hypernaturemia, improving Lactic acidosis, resolved Hypophosphatemia Hypokalemia, resolved Elevated ddimer/venous Doppler negative for DVT Plan; GI consulted for PEG placement, Continue current antibiotics Rocephin, and Flagyl Zithromax discontinued, As recommended by ID Follow cultures Patient needs outpatient dentists evaluation upon discharge Insulin glargine dose increased,Closely monitor blood sugars Follow nephrology evaluation recommendations planning dialysis DVT prophylaxis Heparin renal dose Plan of care reviewed with patient and 11/15: Patient has been transitioned to sliding scale insulin and started on a pured diet. Per SNF patient has completed antibiotic therapy for her mouth. Her leukocytosis, hypernatremia, hyperchloremia, metabolic acidosis have improved. She has worsening kidney function. ID consulted today. 11/16: Continue IV antibiotics of ceftriaxone and azithromycin per ID recommendations. Patient has been transitioned from IV insulin drip to long- acting insulin of Lantus 14 units at bedtime. Patient does have acute kidney injury likely secondary to sepsis/ATN +/- vasomotor nephropathy. Creatinine is worse today at 2.7. Consult nephrology for further evaluation. Check CT scan of the abdomen pelvis. 11/17: Continue antibiotics per ID recommendations. Patient appears to have pneumonia and UTI. Blood and urine cultures remain negative x48 hours. Follow- up COVID-[address] scan shows a nonobstructing calculus in the right kidney. Follow-up BMP to assess renal function 11/18: Continue ceftriaxone, itraconazole and azithromycin for sepsis secondary to pneumonia/UTI. Procalcitonin elevated at 30.66. Chest x-ray revealed patchy bilateral infiltrates. Etiology aspiration pneumonia versus COVID-19. COVID-19 PCR pending. Blood and urine cultures remain negative. Nephrology following for acute kidney injury. Creatinine worsened. Follow-up BMP this morning. CT scan negative for obstruction. 11/19/2020; continue current antibiotics per ID COVID-19 test negative, patient is requiring 2 L of nasal cannula oxygen Closely monitor and adjust management as needed Consults and recommendations noted and appreciated 11/20/2020; Dysphagia, failed swallow eval, GI consulted for PEG placement GI recommend laparoscopic /surgical placement of PEG Surgeon Dr. Campos consulted, follow clinically 11/21/20 Patient is going for possible PICC placement today. Patient renal function is improving BUN is 71 and creatinine 3.6. We will continue to monitor the kidney function. Recheck BMP in the morning. Continue Rocephin and metronidazole antibiotic as per ID Discharge plan to SNF when medically stable Business Support Assistant recommendation are appreciated Recheck CBC BMP in the morning 11/22/20 Patient is doing okay. Patient is nonverbal. No chest pain no shortness of breath Patient is going for g tube placement today. Patient renal function is improving BUN is 68 and creatinine 3.4. We will continue to monitor the kidney function. Recheck BMP in the morning. Continue Rocephin and metronidazole antibiotic as per ID Discharge plan to SNF when medically stable Recheck BMP in the morning 11/23/20 Patient is seen and examined Patient chart and medications reviewed Patient is sleeping Patient is noncommunicative and cachectic Malnourished Patient is status post PEG tube placement yesterday Renal function is improving. BUN is 59 creatinine 3.1 Continue current management and antibiotic Recheck BMP in the morning Discharge plan to SNF when medically stable 11/24/20 Patient is seen and examined Patient is doing better. WBC is 10.7 hemoglobin 8.7 hematocrit 27.3 Renal function is improving BUN is 59 creatinine 2.8 Patient is a status post PEG placement on PEG feeding. Urine culture is most likely contamination. Continue current management and antibiotic Recheck BMP in the morning. Nephrology follow-up Discharge plan to SNF when medically stable 11/25/20 Patient is seen and examined Patient is doing better. No new complaint Patient is more awake alert. Talking few sentences Malnourished Patient is status post PEG tube placement . Urine culture is most likely contamination . WBC is 11.1 and BUN 53 creatinine 2.4. Renal function is improving. 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 11/26: Renal function continues to show some improvement. Down to 2.3. We will continue outpatient nephrology evaluation and pulmonary evaluation. Aspiration precautions highly recommended. No new fever noted today. Repeat chest x-ray in 6weeks. We will perform thoracentesis of the left pleural effusion prior to discharge. Disposition: [id number] SNF W [facility] CERT Final Discharge Diagnosis (Prints w/discharge instructions): sepsis Time spent for discharge: 35 mins Core Measure Documentation - Palliative Care Palliative Care/ Comfort Measures: Not Applicable - Core Measures Any of the following diagnoses?: none Exam - Physical Exam Narrative exam: General appearance: Present: no acute distress, cachectic, lethargic but appears to be basal - EENT Eyes: Present: PERRL, EOM intact ENT: clear oral mucosa, poor dentition - Neck Neck: Present: supple, normal ROM - Respiratory Respiratory effort: normal Respiratory: bilateral: diminished - Cardiovascular Rhythm: regular Heart Sounds: Present: S1 & S2 - Extremities Extremities: no ischemia Peripheral Pulses: within normal limits - Abdominal General gastrointestinal: soft, non-tender, non-distended, normal bowel sounds. PEG tube site intact - Integumentary Integumentary: Present: warm, dry - Neurologic Neurologic: CNII-XII intact, moves all extremities. 1-2 word sentences - Allied Health Allied health notes reviewed: nursing - Constitutional Vitals: Temp Pulse Resp BP Pulse Ox 98.2 F 74 18 104/63 100 11/26/20 05:04 11/26/20 06:00 11/26/20 05:04 11/26/20 05:04 11/26/20 09:57 Plan Activity: advance as tolerated, fall precautions Diet: renal Special Instructions: record daily weights, record daily BP diary, physical therapy, occupational therapy Follow up with: GUILHERME JONES MD [Primary Care Provider] - 3-5 Days BATSHEVA MIRANDA MD [Staff Physician] - 7 Days SHRAVAN DIAZ MD [Staff Physician] - 7 Days ABBEY JULIO MD [Staff Physician] - 7 Days Prescriptions: Insulin Glargine [Lantus VIAL] 30 units SUB-Q QHS #10 units Famotidine [Pepcid] 20 mg PO QDAY #30 tablet Other Discharge Orders: XR chest 1V ap Time Frame: 6 Weeks, Location: None Selected
--- NOTE | 2020-11-26 15:30 | Procedure Note ---
Date of procedure: 11/26/20 Pre-op diagnosis: left pleural effusion Post-op diagnosis: same Procedure: US left thoracentesis Findings: moderate left pleural effusion Anesthesia: local Surgeon: LUTHER OSBORNE Estimated blood loss: none Pathology: list (120cc) Specimen disposition: to lab Condition: stable Disposition: floor
[2020-11-26] MEDS: oxyCODONE /ACETAMINOPHEN 5-325MG TAB PO PRN (15:54)
--- NOTE | 2020-11-26 16:38 | Ultrasound Report ---
Ultrasound-guided thoracentesis HISTORY: Left pleural effusion. COMPARISON: Chest x-ray performed earlier today PROCEDURE: The risks (including but not limited to bleeding, infection, and pneumothorax) and benefi ts were explained to the patient and informed consent was obtained. A time out procedure was perform ed. Ultrasound was used to evaluate the left pleural effusion and locate the optimal site for needle entr y. Once the skin was marked, the procedure site was prepped and draped in the usual sterile fashion and lidocaine was used for local anesthesia. A 5 [place] thoracentesis catheter was placed. The mayra ent was monitored closely throughout the procedure, and a total of 800 mL of slightly cloudy yellow f luid was aspirated. Samples were sent to the lab for further evaluation per the primary clinicians o rders. The patient tolerated the procedure well with no complications. A post-procedure chest x-ray was imm ediately ordered. IMPRESSION: Successful ultrasound-guided thoracentesis as described. Signer Name: Lauro Acevedo Jr, MD Signed: 11/26/2020 4:34 PM Workstation Name: [id number]
--- NOTE | 2020-11-26 17:33 | XRay Report ---
CHEST 1 VIEW 11/26/2020 3:51 PM INDICATION / CLINICAL INFORMATION: left pl effusion, recent thora. COMPARISON: 11/26/2020, 0805 hours FINDINGS: SUPPORT DEVICES: None. HEART / MEDIASTINUM: Unchanged LUNGS / PLEURA: Patient status post left thoracentesis with removal of most of the left pleural fluid . No pneumothorax. There is mild atelectasis in the left lung base. ADDITIONAL FINDINGS: No significant additional findings. IMPRESSION: 1. Status post left thoracentesis. There is no pneumothorax. There is mild left basilar atelectasis. Signer Name: Shaun Najera MD Signed: 11/26/2020 5:29 PM Workstation Name: [id number]
[2020-11-26 18:34] VITALS: BP 93/50
[2020-11-26 19:36] LABS: Total Cells Counted 100 /mm3
[2020-12-02 08:37] LABS: Amylase,Body Fluid 45; LDH,Body Fluid 385; Total Protein,Body Fluid < 3.0 (15.0-45.0)
== END 2020-11-26 20:30 | DRG 871 ==
LOC: ED 15:25 → CC1 18:33 → 3A 11-15 18:15
PROVIDERS: ADMIT Internal Medicine; ATTEND Internal Medicine
PROC: 0DH63UZ Insertion of Feeding Device into Stomach, Percutaneous Approach (ICD-10-PCS; 2020-11-22)
PROC: 0W9B3ZZ Drainage of Left Pleural Cavity, Percutaneous Approach (ICD-10-PCS; principal; 2020-11-26)
PROC: 4A033R1 Measurement of Arterial Saturation, Peripheral, Percutaneous Approach (ICD-10-PCS; 2020-11-26)
DX: A41.9 Sepsis, unspecified organism (principal); E11.10 Type 2 diabetes mellitus with ketoacidosis without coma; G92 Toxic encephalopathy; J18.9 Pneumonia, unspecified organism; N17.0 Acute kidney failure with tubular necrosis; J96.01 Acute respiratory failure with hypoxia; J90 Pleural effusion, not elsewhere classified; N39.0 Urinary tract infection, site not specified; E87.0 Hyperosmolality and hypernatremia; E87.2 Acidosis; Z20.822 Contact with and (suspected) exposure to COVID-19; E83.39 Other disorders of phosphorus metabolism; E87.6 Hypokalemia; R79.89 Other specified abnormal findings of blood chemistry; E87.8 Other disorders of electrolyte and fluid balance, not elsewhere classified; I10 Essential (primary) hypertension; F41.9 Anxiety disorder, unspecified; E78.5 Hyperlipidemia, unspecified; D72.829 Elevated white blood cell count, unspecified; F32.9 Major depressive disorder, single episode, unspecified; F01.50 Vascular dementia, unspecified severity, without behavioral disturbance, psychotic disturbance, mood disturbance, and anxiety; K05.10 Chronic gingivitis, plaque induced; K05.30 Chronic periodontitis, unspecified; D64.9 Anemia, unspecified; Z79.899 Other long term (current) drug therapy; Z79.891 Long term (current) use of opiate analgesic; Z79.01 Long term (current) use of anticoagulants; Z79.4 Long term (current) use of insulin; Z83.3 Family history of diabetes mellitus; Z82.49 Family history of ischemic heart disease and other diseases of the circulatory system
CPT/HCPCS: 32555; 36415; 36600; 70450; 70486; 71045; 71046; 74176; 76770; 80048; 80053; 80076; 81001; 82010; 82140; 82150; 82550; 82570; 82728; 82805; 82947; 82962; 83036; 83605; 83615; 83735; 83930; 84100; 84145; 84160; 84300; 84484; 85007; 85025; 85379; 85610; 85730; 86140; 87040; 87086; 87116; 88112; 88305; 89051; 93005; 93970; 96365; 96375; 96376; G0378; A9270-GY; J0330; J0456; J0692; J0696; J1100; J1170; J1644; J1815; J2405; J2704; J2710; J3010; J3370; J3480; J7030; J7040; J7070; J7120; U0003

== ENCOUNTER 2021-01-07 10:36 | Inpatient (IN) | payer MEDICARE ==
[2021-01-07] MEDS ORDERED: SODIUM CHLORIDE 0.9% 1000 ML IV SOLN IV ONE (11:13)
[2021-01-07] MEDS ORDERED: ACETAMINOPHEN 650 MG RECT SUPP PR ONE (11:16)
[2021-01-07] MEDS ORDERED: PIPERACILLIN/TAZOBACTAM 3.375 3.375 GM/50 ML BAG IV ONE (11:16)
--- NOTE | 2021-01-07 11:23 | Emergency Department Report ---
ED General Adult HPI - General Chief complaint: Hyperglycemia Stated complaint: DKA/SEPSIS Time Seen by Provider: 01/07/21 11:09 Source: EMS Mode of arrival: Stretcher Limitations: Altered Mental Status - History of Present Illness Initial comments: Patient is a 55-year-old female who is a resident of [facility] with vascular dementia, depression, developmental delay, debility, diabetes mellitus, hyperlipidemia, recent COVID 19 infection, chronic kidney disease and recurrent DKA. Patient brought to the emergency department via EMS for evaluation of fever and hyperglycemia. Patient found to be febrile with a temperature of 101.2, tachycardic at 125. Sepsis protocol immediately initiated and patient started on IV fluids and received Zosyn. - Related Data Home Medications Medication Instructions Recorded Confirmed Last Taken Citalopram [Celexa] 20 mg PO QDAY 01/25/20 01/07/21 Unknown Pravastatin [Pravachol] 40 mg PO QHS 01/25/20 01/07/21 Unknown Acetaminophen [Mapap] 650 mg PO BID PRN 02/26/20 01/07/21 Unknown Ascorbic Acid [Vitamin C with Chetna 500 mg PO DAILY 02/26/20 01/07/21 Unknown Hips] Glimepiride [Amaryl] 4 mg PO QAM 02/26/20 01/07/21 Unknown Insulin Lispro [Humalog] 5 units SQ AC 02/26/20 01/07/21 Unknown Multivit-Min/Ferrous Fumarate 15 mg PO DAILY 02/26/20 01/07/21 Unknown [Multivitamin with Minerals Tab] Previous Rx's Medication Instructions Recorded Last Taken Type Apixaban [Eliquis] 2.5 mg PO BID #30 tablet 03/01/20 Unknown Rx Famotidine [Pepcid] 20 mg PO QDAY #30 tablet 11/26/20 Unknown Rx Insulin Glargine [Lantus VIAL] 30 units SUB-Q QHS #10 units 11/26/20 Unknown Rx Lipase/Protease/Amylase [Pancreaze 1 each FEEDTUBE PRN PRN capsule 11/26/20 Unknown Rx 10,500 Unit] Allergies Allergy/AdvReac Type Severity Reaction Status Date / Time No Known Allergies Allergy Verified 02/26/20 10:24 ED Review of Systems ROS: Stated complaint: DKA/SEPSIS Other details as noted in HPI Comment: Unobtainable due to pts medical conditions Constitutional: fever ED Past Medical Hx - Past Medical History Hx Diabetes: Yes Hx Renal Disease: Yes (Had UTI and sepsis-->DKA on admission. RACH/ATN) Hx Psychiatric Treatment: (anxiety) Hx Dementia: Yes Additional medical history: COVID +, history of Falling - Social History Smoking Status: Never Smoker - Medications Home Medications: Home Medications Medication Instructions Recorded Confirmed Last Taken Type Citalopram [Celexa] 20 mg PO QDAY 01/25/20 01/07/21 Unknown History Pravastatin [Pravachol] 40 mg PO QHS 01/25/20 01/07/21 Unknown History Acetaminophen [Mapap] 650 mg PO BID PRN 02/26/20 01/07/21 Unknown History Ascorbic Acid [Vitamin C with Chetna 500 mg PO DAILY 02/26/20 01/07/21 Unknown History Hips] Glimepiride [Amaryl] 4 mg PO QAM 02/26/20 01/07/21 Unknown History Insulin Lispro [Humalog] 5 units SQ AC 02/26/20 01/07/21 Unknown History Multivit-Min/Ferrous Fumarate 15 mg PO DAILY 02/26/20 01/07/21 Unknown History [Multivitamin with Minerals Tab] Apixaban [Eliquis] 2.5 mg PO BID #30 tablet 03/01/20 01/07/21 Unknown Rx Famotidine [Pepcid] 20 mg PO QDAY #30 tablet 11/26/20 01/07/21 Unknown Rx Insulin Glargine [Lantus VIAL] 30 units SUB-Q QHS #10 units 11/26/20 01/07/21 Unknown Rx Lipase/Protease/Amylase [Pancreaze 1 each FEEDTUBE PRN PRN capsule 11/26/20 01/07/21 Unknown Rx 10,500 Unit] ED Physical Exam - General Limitations: Altered Mental Status General appearance: alert, in no apparent distress - Head Head exam: Present: atraumatic, normocephalic, normal inspection - Respiratory Respiratory exam: Present: normal lung sounds bilaterally - Cardiovascular Cardiovascular Exam: Present: tachycardia - GI/Abdominal GI/Abdominal exam: Present: soft, normal bowel sounds. Absent: distended, tenderness, guarding, rebound, rigid, mass, bruit, pulsatile mass, hernia - Back Exam Back exam: Absent: CVA tenderness (R), CVA tenderness (L) - Neurological Exam Neurological exam: Present: alert - Skin Skin exam: Present: warm, dry ED Course Vital Signs 01/07/21 01/07/21 01/07/21 11:07 11:16 11:30 Temperature Pulse Rate 126 H 119 H Respiratory 56 H 27 H Rate Blood Pressure 139/77 138/76 124/79 O2 Sat by Pulse 93 95 Oximetry 01/07/21 01/07/21 01/07/21 11:35 11:37 11:46 Temperature 101.7 F H Pulse Rate 107 H Respiratory 24 Rate Blood Pressure 124/79 O2 Sat by Pulse 4 L 97 Oximetry 01/07/21 01/07/21 01/07/21 12:16 12:46 13:16 Temperature Pulse Rate 98 H 100 H 106 H Respiratory 20 28 H 22 Rate Blood Pressure 133/74 116/65 92/34 O2 Sat by Pulse 98 99 97 Oximetry 01/07/21 01/07/21 01/07/21 13:46 14:00 14:20 Temperature Pulse Rate 106 H 109 H 111 H Respiratory 27 H 25 H 19 Rate Blood Pressure 90/47 105/52 105/52 O2 Sat by Pulse 94 97 94 Oximetry 01/07/21 01/07/21 01/07/21 14:30 14:40 14:50 Temperature Pulse Rate 113 H 111 H 109 H Respiratory 31 H 25 H 24 Rate Blood Pressure 112/55 112/55 112/55 O2 Sat by Pulse 95 95 94 Oximetry 01/07/21 01/07/21 01/07/21 15:00 15:10 15:20 Temperature Pulse Rate 111 H 99 H 99 H Respiratory 32 H 22 22 Rate Blood Pressure 130/68 130/68 130/68 O2 Sat by Pulse 95 95 96 Oximetry 01/07/21 01/07/21 01/07/21 15:30 15:46 15:50 Temperature Pulse Rate 108 H 99 H 92 H Respiratory 25 H 20 33 H Rate Blood Pressure 125/73 O2 Sat by Pulse 95 95 95 Oximetry 01/07/21 01/07/21 01/07/21 16:00 16:11 16:21 Temperature 99.2 F Pulse Rate 99 H 96 H 102 H Respiratory 20 24 20 Rate Blood Pressure O2 Sat by Pulse 97 96 97 Oximetry ED Medical Decision Making - Lab Data Result diagrams: 01/07/21 11:23 01/08/21 03:56 - EKG Data -: EKG Interpreted by Me EKG shows normal: sinus rhythm Rate: tachycardia - Radiology Data Radiology results: report reviewed - Medical Decision Making Patient is a 55-year-old female who is a resident of [facility] with vascular dementia, depression, developmental delay, debility, diabetes mellitus, hyperlipidemia, recent COVID 19 infection, chronic kidney disease and recurrent DKA. Patient brought to the emergency department via EMS for evaluation of fever and hyperglycemia. Patient found to be febrile with a temperature of 101.2, tachycardic at 125. Sepsis protocol immediately initiated and patient started on IV fluids and received Zosyn. Labs showed leukocytosis and significantly elevated blood glucose with anion gap of 34. Patient also started on insulin drip. Chest x-ray showed pneumonia. Urine is still pending. I discussed the patient with Dr. Khalil, he agreed to admit the patient to medical service for further management. Critical Care Time: Yes Critical care time in (mins) excluding proc time.: 30 Critical care attestation.: If time is entered above; I have spent that time in minutes in the direct care of this critically ill patient, excluding procedure time. ED Disposition Clinical Impression: Acute sepsis, Hyponatremia syndrome, Pneumonia, Suspected 2019-nCoV infection, Acute hyperkalemia DKA (diabetic ketoacidoses) Qualifiers: Diabetes mellitus type: type 1 Disposition: -09 OP ADMIT IP TO THIS HOSP Is pt being admited?: Yes Condition: Stable
--- NOTE | 2021-01-07 11:56 | XRay Report ---
CHEST 1 VIEW 01/07/2021 11:24 AM INDICATION / CLINICAL INFORMATION: sepsis. COMPARISON: 11/26/2020 FINDINGS: SUPPORT DEVICES: None. HEART / MEDIASTINUM: No significant abnormality. LUNGS / PLEURA: Underlying COPD and mild increased interstitial markings remains. No dense infiltrate . Slightly more localized opacity left mid zone. ADDITIONAL FINDINGS: No significant additional findings. IMPRESSION: 1. Underlying COPD and increased interstitial markings. 2. Slightly more localized opacity left mid zone may represent developing pneumonia. Signer Name: Tien Gardner MD Signed: 01/07/2021 11:52 AM Workstation Name: [id number]
[2021-01-07 12:02] LABS: Calcium 9.9 mg/dL (8.4-10.2)
[2021-01-07 12:03] LABS: Albumin 3.5 g/dL (3.9-5)
[2021-01-07 12:29] LABS: Basophils # (Auto) 0.1 K/mm3 (0.0-0.1); Basophils % (Auto) 0.4 % (0.0-1.8); Eosinophils % (Auto) 0.1 % (0.0-4.3); Hematocrit 29.8 % (30.3-42.9); Hemoglobin 9.2 gm/dl (10.1-14.3); Lymphocytes # (Auto) 0.7 K/mm3 (1.2-5.4); Lymphocytes % (Auto) 4.6 % (13.4-35.0); Mean Corpuscular HGB Conc 31 % (30-34); Mean Corpuscular Volume 102 fl (79-97); Monocytes # (Auto) 0.8 K/mm3 (0.0-0.8); Monocytes % (Auto) 5.4 % (0.0-7.3); Platelet Count 584 K/mm3 (140-440); Red Blood Count 2.93 M/mm3 (3.65-5.03); Red Cell Distribution Width 14.9 % (13.2-15.2)
[2021-01-07 13:13] LABS: Bacteria,Urine 1+ /HPF (Negative); Bilirubin,Urine NEG (Negative); Blood,Urine NEG (Negative); Color,Urine Straw (Yellow); Urobilinogen,Urine < 2.0 mg/dL (<2.0)
[2021-01-07 13:19] LABS: Calcium 9.8 mg/dL (8.4-10.2)
[2021-01-07] MEDS ORDERED: HYDROmorphone 1 MG/1 ML INJ IV PRN (13:25)
[2021-01-07] MEDS ORDERED: ACETAMINOPHEN 325 MG TAB PO PRN (13:25)
[2021-01-07] MEDS ORDERED: ALBUTEROL 2.5 MG/3 ML NEBU IH PRN (13:25)
--- NOTE | 2021-01-07 13:25 | History and Physical Report ---
History of Present Illness Chief complaint: She is sick again History of present illness: 55 YO Female [facility] Resident at [facility] with Vascular Dementia, Cerebral Atherosclerosis, Debility, DM, HLD presents to ED for evaluation. Pt is nonverbal and unable to provide history. Patient history taken from EMS staff, ED staff, and correction facility staff. As per staff the patient was found to have a fever to 101 degrees today as well as tachydardia. EMS was notified and upon arrival the patient was found to be in distress and subsequently transported to [facility] for further care and evaluation of the aforementioned symptoms. Patient seen and evaluated in the emergency department. Lab and imaging studies reviewed. Patient found to have Left sided Pneumonia complicated by Sepsis, diabetic ketoacidosis, metabolic acidosis, metabolic encephalopathy. Patient admitted to ICU and initiated on DKA protocol as well as pneumonia protocol. No further history is obtainable. Prior admission on 11/14/2020 reviewed. All medication listed at time of admission has been reconciled. Advanced care planning conducted in the emergency department. Critical care team consulted in ED. Past History Past Medical History: diabetes, hypertension, other (see hpi) Past Surgical History: No surgical history, Other (reviewed) Social history: single. denies: smoking, alcohol abuse, prescription drug abuse Family history: diabetes, hypertension Medications and Allergies Allergies Allergy/AdvReac Type Severity Reaction Status Date / Time No Known Allergies Allergy Verified 02/26/20 10:24 Home Medications Medication Instructions Recorded Confirmed Last Taken Type Citalopram [Celexa] 20 mg PO QDAY 01/25/20 01/07/21 Unknown History Pravastatin [Pravachol] 40 mg PO QHS 01/25/20 01/07/21 Unknown History Acetaminophen [Mapap] 650 mg PO BID PRN 02/26/20 01/07/21 Unknown History Ascorbic Acid [Vitamin C with Chetna 500 mg PO DAILY 02/26/20 01/07/21 Unknown His tory Hips] Glimepiride [Amaryl] 4 mg PO QAM 02/26/20 01/07/21 Unknown History Insulin Lispro [Humalog] 5 units SQ AC 02/26/20 01/07/21 Unknown History Multivit-Min/Ferrous Fumarate 15 mg PO DAILY 02/26/20 01/07/21 Unknown History [Multivitamin with Minerals Tab] Apixaban [Eliquis] 2.5 mg PO BID #30 tablet 03/01/20 01/07/21 Unknown Rx Famotidine [Pepcid] 20 mg PO QDAY #30 tablet 11/26/20 01/07/21 Unknown Rx Insulin Glargine [Lantus VIAL] 30 units SUB-Q QHS #10 units 11/26/20 01/07/21 Unknown Rx Lipase/Protease/Amylase [Pancreaze 1 each FEEDTUBE PRN PRN capsule 11/26/20 01/07/21 Unknown Rx 10,500 Unit] Active Meds: Active Medications Insulin Human Regular 100 (units/ Sodium Chloride) 100 mls @ 1 mls/hr IV TITR SHAHLA; Protocol Review of Systems ROS unobtainable: due to mental status Exam - Constitutional Vitals: Temp Pulse Resp BP Pulse Ox 101.7 F H 98 H 20 133/74 98 01/07/21 11:35 01/07/21 12:16 01/07/21 12:16 01/07/21 12:16 01/07/21 12:16 General appearance: Present: mild distress, cachectic - EENT Eyes: Present: PERRL ENT: hearing decreased - Neck Neck: Present: supple, normal ROM - Respiratory Respiratory effort: labored Respiratory: left: diminished - Cardiovascular Heart Sounds: Present: S1 & S2. Absent: rub, click - Extremities Extremities: pulses symmetrical, No edema Peripheral Pulses: abnormal (Capillary refill greater than 3.5 seconds) - Abdominal General gastrointestinal: Present: soft, non-tender, non-distended, normal bowel sounds Female genitourinary: Present: normal - Integumentary Integumentary: Present: dry, clammy, decreased turgor - Musculoskeletal Musculoskeletal: generalized weakness - Psychiatric Psychiatric: no appropriate mood/affect, no intact judgment & insight, no memory intact - Neurologic Neurologic: CNII-XII intact, no focal deficits, no gait normal Results - Labs CBC & Chem 7: 01/07/21 11:23 01/07/21 15:20 Labs: Abnormal lab results 01/07/21 01/07/21 01/07/21 Range/Units 11:23 11:23 11:23 WBC 15.5 H (4.5-11.0) K/mm3 RBC 2.93 L (3.65-5.03) M/mm3 Hgb 9.2 L (10.1-14.3) gm/dl Hct 29.8 L (30.3-42.9) % MCV 102 H (79-97) fl Plt Count 584 H (140-440) K/mm3 Lymph % (Auto) 4.6 L (13.4-35.0) % Lymph # (Auto) 0.7 L (1.2-5.4) K/mm3 Seg Neutrophils % 89.5 H (40.0-70.0) % Seg Neutrophils # 13.8 H (1.8-7.7) K/mm3 Sodium 129 L (137-145) mmol/L Potassium 5.2 H (3.6-5.0) mmol/L Chloride 85.6 L (98-107) mmol/L Carbon Dioxide 15 L (22-30) mmol/L BUN 49 H (7-17) mg/dL Glucose 780 H* (65-100) mg/dL Lactic Acid 4.00 H* (0.7-2.0) mmol/L Magnesium (1.7-2.3) mg/dL Alkaline Phosphatase 242 H (35-129) units/L Albumin 3.5 L (3.9-5) g/dL 01/07/21 01/07/21 01/07/21 Range/Units 12:40 12:40 12:40 WBC (4.5-11.0) K/mm3 RBC (3.65-5.03) M/mm3 Hgb (10.1-14.3) gm/dl Hct (30.3-42.9) % MCV (79-97) fl Plt Count (140-440) K/mm3 Lymph % (Auto) (13.4-35.0) % Lymph # (Auto) (1.2-5.4) K/mm3 Seg Neutrophils % (40.0-70.0) % Seg Neutrophils # (1.8-7.7) K/mm3 Sodium 131 L (137-145) mmol/L Potassium 5.5 H (3.6-5.0) mmol/L Chloride 86.3 L (98-107) mmol/L Carbon Dioxide 16 L (22-30) mmol/L BUN 48 H (7-17) mg/dL Glucose (65-100) mg/dL Lactic Acid 3.90 H* (0.7-2.0) mmol/L Magnesium 2.50 H (1.7-2.3) mg/dL Alkaline Phosphatase (35-129) units/L Albumin (3.9-5) g/dL Assessment and Plan - Patient Problems (1) Acute sepsis Current Visit: Yes Status: Acute Plan to address problem: Sepsis protocol: Chest x-ray, CBC, CMP, blood culture, IV antibiotic therapy, serial lactic acid level, maintain mean arterial pressure greater than or equal to 65, IV fluid resuscitation therapy, The high probability of a clinically significant, sudden or life threatening deterioration of the [cardiac, neuro, infectious disease, endocrine] system(s) required my full and direct attention, intervention and personal management. The aggregate critical care time was [65] minutes. This time is in addition to time spent performing reported procedures but includes the following: [x] Data Review and interpretation [x] Patient assessment and monitoring of vital signs [x] Documentation [x] Medication orders and management (2) DKA (diabetic ketoacidoses) Current Visit: Yes Status: Acute Qualifiers: Diabetes mellitus type: type 1 Plan to address problem: DKA protocol: IV fluid resuscitation therapy, insulin drip, serial BMP, monitor anion gap, potassium repletion as per protocol (3) Pneumonia Current Visit: Yes Status: Acute Plan to address problem: Pneumonia protocol: Chest x-ray, CBC, CMP, IV antibiotic therapy, supplemental oxygen, nebulizer therapy, blood culture. (4) Acute encephalopathy Current Visit: No Status: Acute Plan to address problem: Neuro check, seizure precautions, aspiration precautions (5) DVT prophylaxis Current Visit: No Status: Acute Plan to address problem: SCD to bilateral lower extremities while in bed, prophylactic anticoagulation.
[2021-01-07] MEDS: INSULIN REGULAR, HUMAN 100 UNITS in SODIUM CHLORIDE 0.9% 99 ML IV SCH (13:55)
[2021-01-07] MEDS ORDERED: INSULIN REGULAR, HUMAN 100 UNITS in SODIUM CHLORIDE 0.9% 99 ML IV SCH (14:00)
--- NOTE | 2021-01-07 15:22 | Consultation ---
History of Present Illness Consult date: 01/07/21 Requesting physician: GUILHERME JONES Reason for consult: other (DKA; Sepsis) History of present illness: PULMONARY/CCM CONSULT NOTE (Full dictation # [id number]) Please see dictated notes for full details Medications and Allergies Allergies Allergy/AdvReac Type Severity Reaction Status Date / Time No Known Allergies Allergy Verified 02/26/20 10:24 Home Medications Medication Instructions Recorded Confirmed Last Taken Type Citalopram [Celexa] 20 mg PO QDAY 01/25/20 01/07/21 Unknown History Pravastatin [Pravachol] 40 mg PO QHS 01/25/20 01/07/21 Unknown History Acetaminophen [Mapap] 650 mg PO BID PRN 02/26/20 01/07/21 Unknown History Ascorbic Acid [Vitamin C with Chetna 500 mg PO DAILY 02/26/20 01/07/21 Unknown History Hips] Glimepiride [Amaryl] 4 mg PO QAM 02/26/20 01/07/21 Unknown History Insulin Lispro [Humalog] 5 units SQ AC 02/26/20 01/07/21 Unknown History Multivit-Min/Ferrous Fumarate 15 mg PO DAILY 02/26/20 01/07/21 Unknown History [Multivitamin with Minerals Tab] Apixaban [Eliquis] 2.5 mg PO BID #30 tablet 03/01/20 01/07/21 Unknown Rx Famotidine [Pepcid] 20 mg PO QDAY #30 tablet 11/26/20 01/07/21 Unknown Rx Insulin Glargine [Lantus VIAL] 30 units SUB-Q QHS #10 units 11/26/20 01/07/21 Unknown Rx Lipase/Protease/Amylase [Pancreaze 1 each FEEDTUBE PRN PRN capsule 11/26/20 01/07/[address] 10,500 Unit] Active Meds: Active Medications Acetaminophen (Acetaminophen 325 Mg Tab) 650 mg PO Q6H PRN PRN Reason: Pain, Mild (1-3) Albuterol (Albuterol 2.5 Mg/3 Ml Nebu) 2.5 mg IH Q3HRT PRN PRN Reason: Shortness Of Breath Hydromorphone HCl (Hydromorphone 1 Mg/1 Ml Inj) 0.25 mg IV Q4H PRN PRN Reason: Pain, Moderate (4-6) Insulin Human Regular 100 (units/ Sodium Chloride) 100 mls @ 1 mls/hr IV TITR SHAHLA; Protocol Last Admin: 01/07/21 13:55 Dose: 8 units/hr, 8 mls/hr Documented by: Levofloxacin/Dextrose (Levaquin 750mg/150ml) 750 mg in 150 mls @ 100 mls/hr IV Q24H SHAHLA; Protocol Last Admin: 01/07/21 14:01 Dose: 100 mls/hr Documented by: Sodium Chloride (Sodium Chloride 0.9% 10 Ml Flush Syringe) 10 ml IV BID SHAHLA Sodium Chloride (Sodium Chloride 0.9% 10 Ml Flush Syringe) 10 ml IV PRN PRN PRN Reason: LINE FLUSH Physical Examination Vital signs: Vital Signs BP 139/77 01/07/21 11:07 Results - Laboratory Findings CBC and BMP: 01/07/21 11:23 01/08/21 03:56 Abnormal lab findings: Abnormal Labs 01/07/21 01/07/21 01/07/21 10:59 11:23 11:23 WBC 15.5 H RBC 2.93 L Hgb 9.2 L Hct 29.8 L MCV 102 H Plt Count 584 H Lymph % (Auto) 4.6 L Lymph # (Auto) 0.7 L Seg Neutrophils % 89.5 H Seg Neutrophils # 13.8 H Sodium 129 L Potassium 5.2 H Chloride 85.6 L Carbon Dioxide 15 L BUN 49 H Glucose 780 H* POC Glucose > 600 H Lactic Acid Magnesium Alkaline Phosphatase 242 H Albumin 3.5 L 01/07/21 01/07/21 01/07/21 11:23 12:40 12:40 WBC RBC Hgb Hct MCV Plt Count Lymph % (Auto) Lymph # (Auto) Seg Neutrophils % Seg Neutrophils # Sodium Potassium Chloride Carbon Dioxide BUN Glucose POC Glucose Lactic Acid 4.00 H* 3.90 H* Magnesium 2.50 H Alkaline Phosphatase Albumin 01/07/21 12:40 WBC RBC Hgb Hct MCV Plt Count Lymph % (Auto) Lymph # (Auto) Seg Neutrophils % Seg Neutrophils # Sodium 131 L Potassium 5.5 H Chloride 86.3 L Carbon Dioxide 16 L BUN 48 H Glucose 764 H* POC Glucose Lactic Acid Magnesium Alkaline Phosphatase Albumin
[2021-01-07 15:54] LABS: Calcium 9.3 mg/dL (8.4-10.2)
[2021-01-07] MEDS: D5W/0.45% NACL/KCL 20 MEQ 20 MEQ/1,000 ML BAG IV SCH (19:18)
[2021-01-07 21:01] LABS: BUN/Creatinine Ratio 36; Blood Urea Nitrogen 32 mg/dL (7-17); Calcium 8.9 mg/dL (8.4-10.2); Hemolysis Index 23
[2021-01-08] MEDS: INSULIN REGULAR, HUMAN 100 UNITS in SODIUM CHLORIDE 0.9% 99 ML IV SCH (00:15)
[2021-01-08 04:47] LABS: Blood Urea Nitrogen 26 mg/dL (7-17); Calcium 8.8 mg/dL (8.4-10.2); Hemolysis Index 23
[2021-01-08 05:07] LABS: BUN/Creatinine Ratio 37
[2021-01-08] MEDS: D5W/0.45% NACL/KCL 20 MEQ 20 MEQ/1,000 ML BAG IV SCH (06:15)
[2021-01-08] MEDS ORDERED: LIPASE 10,500/PROTEASE 25,000/AMYLASE 43,750 (UNITS) DR CAP FEEDTUBE PRN ×2 (07:35→10:12)
[2021-01-08] MEDS ORDERED: DEXTROSE 50% IN WATER (25GM) 50 ML SYRINGE IV PRN (07:37)
[2021-01-08] MEDS ORDERED: SODIUM CHLORIDE 0.9% 1000 ML 1,000 ML IV SCH (07:45)
[2021-01-08] MEDS ORDERED: INSULIN NPH/REGULAR 70/30 INJ SUB-Q ONE (08:30)
[2021-01-08] MEDS: FAMOTIDINE 20 MG TAB PO SCH (09:00)
[2021-01-08] MEDS: CITALOPRAM 20 MG TAB PO SCH (09:00)
[2021-01-08] MEDS: ASCORBIC ACID 500 MG TAB PO SCH (09:00)
[2021-01-08] MEDS: MULTIVITAMINS 5 ML ORAL LIQUID PO SCH (09:01)
--- NOTE | 2021-01-08 09:25 | Progress Note ---
Assessment and Plan Assessment and plan: Sepsis Pneumonia DKA Toxic metabolic encephalopathy 01/08/2021. DKA has resolved. We will transition from IV insulin drip to long- acting 7030x1 today. Patient will resume home long-acting Lantus this evening. Sliding scale regular insulin and Accu-Cheks. Continue IV antibiotics for sepsis/pneumonia. Follow-up blood cultures. History Interval history: No new issues overnight Hospitalist Physical - Constitutional Vitals: Temp Pulse Resp BP Pulse Ox 97.7 F 71 20 86/49 100 01/08/21 07:12 01/08/21 08:00 01/08/21 08:00 01/08/21 08:00 01/08/21 08:00 General appearance: Present: mild distress, cachectic - EENT Eyes: Present: PERRL, EOM intact ENT: hearing intact, clear oral mucosa, dentition normal - Neck Neck: Present: supple, normal ROM - Respiratory Respiratory effort: normal Respiratory: bilateral: CTA - Cardiovascular Rhythm: regular Heart Sounds: Present: S1 & S2. Absent: gallop, rub - Extremities Extremities: no ischemia, No edema, Full ROM - Abdominal General gastrointestinal: soft, non-tender, non-distended, normal bowel sounds - Integumentary Integumentary: Present: clear, warm, dry - Neurologic Neurologic: CNII-XII intact, moves all extremities Results - Labs CBC & Chem 7: 01/07/21 11:23 01/08/21 03:56 Labs: Laboratory Last Values WBC 15.5 K/mm3 (4.5-11.0) H 01/07/21 11:23 RBC 2.93 M/mm3 (3.65-5.03) L 01/07/21 11:23 Hgb 9.2 gm/dl (10.1-14.3) L 01/07/21 11:23 Hct 29.8 % (30.3-42.9) L 01/07/21 11:23 MCV 102 fl (79-97) H 01/07/21 11:23 MCH 31 pg (28-32) 01/07/21 11:23 MCHC 31 % (30-34) 01/07/21 11:23 RDW 14.9 % (13.2-15.2) 01/07/21 11:23 Plt Count 584 K/mm3 (140-440) H 01/07/21 11:23 Lymph % (Auto) 4.6 % (13.4-35.0) L 01/07/21 11:23 Bell % (Auto) 5.4 % (0.0-7.3) 01/07/21 11:23 Eos % (Auto) 0.1 % (0.0-4.3) 01/07/21 11:23 Baso % (Auto) 0.4 % (0.0-1.8) 01/07/21 11:23 Lymph # (Auto) 0.7 K/mm3 (1.2-5.4) L 01/07/21 11:23 Bell # (Auto) 0.8 K/mm3 (0.0-0.8) 01/07/21 11:23 Eos # (Auto) 0.0 K/mm3 (0.0-0.4) 01/07/21 11:23 Baso # (Auto) 0.1 K/mm3 (0.0-0.1) 01/07/21 11:23 Seg Neutrophils % 89.5 % (40.0-70.0) H 01/07/21 11:23 Seg Neutrophils # 13.8 K/mm3 (1.8-7.7) H 01/07/21 11:23 Sodium 139 mmol/L (137-145) 01/08/21 03:56 Potassium 4.7 mmol/L (3.6-5.0) 01/08/21 03:56 Chloride 104.8 mmol/L (98-107) 01/08/21 03:56 Carbon Dioxide 25 mmol/L (22-30) D 01/08/21 03:56 Anion Gap 14 mmol/L 01/08/21 03:56 BUN 26 mg/dL (7-17) H 01/08/21 03:56 Creatinine 0.7 mg/dL (0.6-1.2) 01/08/21 03:56 Estimated GFR > 60 ml/min 01/08/21 03:56 BUN/Creatinine Ratio 37 % 01/08/21 03:56 Glucose 110 mg/dL (65-100) H 01/08/21 03:56 POC Glucose 100 mg/dL (70-105) 01/08/21 04:12 Lactic Acid 3.20 mmol/L (0.7-2.0) H* 01/07/21 15:20 Calcium 8.8 mg/dL (8.4-10.2) 01/08/21 03:56 Phosphorus 2.50 mg/dL (2.5-4.5) D 01/07/21 15:20 Magnesium 2.30 mg/dL (1.7-2.3) 01/07/21 15:20 Total Bilirubin 0.20 mg/dL (0.1-1.2) 01/07/21 11:23 AST 14 units/L (5-40) 01/07/21 11:23 ALT 18 units/L (7-56) 01/07/21 11:23 Alkaline Phosphatase 242 units/L (35-129) H 01/07/21 11:23 Total Protein 7.8 g/dL (6.3-8.2) 01/07/21 11:23 Albumin 3.5 g/dL (3.9-5) L 01/07/21 11:23 Albumin/Globulin Ratio 0.8 % 01/07/21 11:23 Urine Color Straw (Yellow) 01/07/21 12:12 Urine Turbidity Clear (Clear) 01/07/21 12:12 Urine pH 5.0 (5.0-7.0) 01/07/21 12:12 Ur Specific [place] 1.022 (1.003-1.030) 01/07/21 12:12 Urine Protein 30 mg/dl mg/dL (Negative) 01/07/21 12:12 Urine Glucose (UA) >=500 mg/dL (Negative) 01/07/21 12:12 Urine Ketones 20 mg/dL (Negative) 01/07/21 12:12 Urine Blood Neg (Negative) 01/07/21 12:12 Urine Nitrite Neg (Negative) 01/07/21 12:12 Urine Bilirubin Neg (Negative) 01/07/21 12:12 Urine Urobilinogen < 2.0 mg/dL (<2.0) 01/07/21 12:12 Ur Leukocyte Esterase Neg (Negative) 01/07/21 12:12 Urine WBC (Auto) 1.0 /HPF (0.0-6.0) 01/07/21 12:12 Urine RBC (Auto) 1.0 /HPF (0.0-6.0) 01/07/21 12:12 U Epithel Cells (Auto) < 1.0 /HPF (0-13.0) 01/07/21 12:12 Urine Bacteria (Auto) 1+ /HPF (Negative) 01/07/21 12:12 Blood Type O POSITIVE 01/07/21 15:20 Antibody Screen Negative 01/07/21 15:20 Microbiology: Microbiology 01/07/21 11:23 Peripheral/Venous Blood Culture - Preliminary Culture in Progress 01/07/21 11:23 Peripheral/Venous Blood Culture - Preliminary Culture in Progress Verma/IV: Voiding Method Indwelling Catheter Active Medications - Current Medications Current Medications: Generic Name Dose Route Start Last Admin Trade Name Freq PRN Reason Stop Dose Admin Acetaminophen 650 mg 01/07/21 13:25 Acetaminophen 325 Mg Tab PO Q6H PRN Pain, Mild (1-3) Albuterol 2.5 mg 01/07/21 13:25 Albuterol 2.5 Mg/3 Ml Nebu IH Q3HRT PRN Shortness Of Breath Lipase/Protease/Amylase 1 each 01/08/21 07:35 Lipase 10,500/Protease 25,000/Amylase 43,750 (Units) Dr Braun FEEDTUBE PRN PRN For Clogged Feeding Tube Apixaban 2.5 mg 01/08/21 10:00 01/08/21 09:00 Apixaban 2.5 Mg Tab PO 2.5 mg BID SHAHLA Administration Ascorbic Acid 500 mg 01/08/21 10:00 01/08/21 09:00 Ascorbic Acid 500 Mg Tab PO 500 mg DAILY SHAHLA Administration Citalopram Hydrobromide 20 mg 01/08/21 10:00 01/08/21 09:00 Citalopram 20 Mg Tab PO 20 mg QDAY SHAHLA Administration Dextrose 50 ml 01/08/21 07:37 Dextrose 50% In Water (25gm) 50 Ml Syringe IV Q30MIN PRN Hypoglycemia Protocol Famotidine 20 mg 01/08/21 10:00 01/08/21 09:00 Famotidine 20 Mg Tab PO 20 mg QDAY SHAHLA Administration Hydromorphone HCl 0.25 mg 01/07/21 13:25 Hydromorphone 1 Mg/1 Ml Inj IV Q4H PRN Pain, Moderate (4-6) Levofloxacin/Dextrose 750 mg in 150 mls @ 100 mls/hr 01/07/21 14:00 01/07/21 15:31 Levaquin 750mg/150ml IV Infused Q24H [facility] Infusion Protocol Sodium Chloride 1,000 mls @ 75 mls/hr 01/08/21 07:45 Nacl 0.9% 1000 Ml IV DIRECT [facility] Insulin Glargine 30 units 01/08/21 22:00 Insulin Glargine 100 Units/Ml SUB-Q QHS [facility] Insulin Human Regular 0 units 01/08/21 12:00 Insulin Regular, Human 100 Units/1 Ml SUB-Q Q6HR [facility] Protocol Multivitamins 5 ml 01/08/21 10:00 01/08/21 09:01 Multivitamins 5 Ml Oral Liquid PO 5 ml QDAY SHAHLA Administration Pravastatin Sodium 40 mg 01/08/21 22:00 Pravastatin 40 Mg Tab PO QHS [facility] Sodium Chloride 10 ml 01/07/21 22:00 01/08/21 09:01 Sodium Chloride 0.9% 10 Ml Flush Syringe IV 10 ml BID SHAHLA Administration Sodium Chloride 10 ml 01/07/21 13:25 Sodium Chloride 0.9% 10 Ml Flush Syringe IV PRN PRN LINE FLUSH
[2021-01-08] MEDS ORDERED: APIXABAN 2.5 MG TAB PO SCH (10:00)
[2021-01-08] MEDS ORDERED: SODIUM BICARBONATE 325 MG TAB FEEDTUBE PRN (10:12)
[2021-01-08] MEDS ORDERED: SIMPLE SYRUP 15 ML FEEDTUBE PRN ×2 (10:12)
--- NOTE | 2021-01-08 10:52 | Progress Note ---
Assessment and Plan Acute hypoxemic respiratory failure Diabetic ketoacidosis Severe sepsis Pneumonia Metabolic acidosis History of vascular dementia Hyperlipidemia Adult failure to thrive Moderate protein-calorie malnutrition Anemia that is microcytic Hyperkalemia Acute kidney injury Hypoalbuminemia - off IV insulin - correct electrolytes per protocol - prn supplemental oxygen to keep O2 sats > 90% - prn bronchodilators (JOANNA) with pulm hygiene per RT - continue to avoid nephrotoxins, renally dose all medications - mobility protocols to prevent pressure ulcers - PT/OT as tolerated - Wound care per RN/WCT - continue accuchecks with glycemic control per SSI for target blood glucose < 180 mg/dL - home oxygen evaluation at discharge - GI & VTE prophylaxis - Flu & pneumovax per protocol - prn analgesia per pain score - continue other care per attending / other consultants ... re-evaluate in am & prn Subjective Date of service: 01/08/21 Principal diagnosis: Ac hypoxemic resp failure; DKA; Severe sepsis; PNA; Metabolic acidosis; RACH Interval history: Patient is seen today for: Acute hypoxemic respiratory failure; DKA; Severe sepsis; Pneumonia; Metabolic acidosis; RACH Seen and examined at bedside; 24hour events reviewed; nursing and respiratory care staff consulted; no adverse overnight events reported to me; resting peacefully in bed; Objective Vital Signs - 12hr 01/07/21 01/07/21 01/07/21 22:51 23:00 23:11 Temperature Pulse Rate 90 82 86 Pulse Rate [ From Monitor] Respiratory 21 Rate Blood Pressure 117/67 123/67 123/67 O2 Sat by Pulse 98 97 99 Oximetry 01/07/21 01/07/21 01/07/21 23:21 23:31 23:41 Temperature Pulse Rate 83 83 88 Pulse Rate [ From Monitor] Respiratory 23 Rate Blood Pressure 123/67 123/67 123/67 O2 Sat by Pulse 98 97 97 Oximetry 01/07/21 01/08/21 01/08/21 23:51 00:00 00:11 Temperature 97.0 F L Pulse Rate 82 82 81 Pulse Rate [ 82 From Monitor] Respiratory 19 Rate Blood Pressure 123/67 103/61 123/67 O2 Sat by Pulse 96 94 94 Oximetry 01/08/21 01/08/21 01/08/21 00:21 00:31 00:41 Temperature Pulse Rate 84 86 86 Pulse Rate [ From Monitor] Respiratory 14 19 Rate Blood Pressure 123/67 123/67 103/61 O2 Sat by Pulse 93 94 94 Oximetry 01/08/21 01/08/21 01/08/21 00:51 01:00 01:11 Temperature Pulse Rate 86 84 79 Pulse Rate [ From Monitor] Respiratory 20 20 21 Rate Blood Pressure 103/61 96/51 96/51 O2 Sat by Pulse 95 96 96 Oximetry 01/08/21 01/08/21 01/08/21 01:21 01:31 01:41 Temperature Pulse Rate 80 79 79 Pulse Rate [ From Monitor] Respiratory 21 21 19 Rate Blood Pressure 96/51 96/51 96/51 O2 Sat by Pulse 95 96 99 Oximetry 01/08/21 01/08/21 01/08/21 01:51 02:01 02:11 Temperature Pulse Rate 77 80 76 Pulse Rate [ From Monitor] Respiratory 19 12 20 Rate Blood Pressure 96/51 116/59 116/59 O2 Sat by Pulse 98 93 96 Oximetry 01/08/21 01/08/21 01/08/21 02:21 02:31 02:41 Temperature Pulse Rate 76 75 77 Pulse Rate [ From Monitor] Respiratory 19 20 20 Rate Blood Pressure 116/59 116/59 116/59 O2 Sat by Pulse 98 100 100 Oximetry 01/08/21 01/08/21 01/08/21 02:51 03:00 03:11 Temperature Pulse Rate 71 74 69 Pulse Rate [ From Monitor] Respiratory 13 10 L 19 Rate Blood Pressure 116/59 113/63 116/59 O2 Sat by Pulse 98 97 98 Oximetry 01/08/21 01/08/21 01/08/21 03:21 03:31 03:41 Temperature Pulse Rate 70 71 71 Pulse Rate [ From Monitor] Respiratory 19 20 18 Rate Blood Pressure 116/59 116/59 113/63 O2 Sat by Pulse 99 98 98 Oximetry 01/08/21 01/08/21 01/08/21 03:51 04:00 04:11 Temperature 97.1 F L Pulse Rate 71 71 73 Pulse Rate [ 71 From Monitor] Respiratory 16 20 22 Rate Blood Pressure 113/63 116/53 116/53 O2 Sat by Pulse 100 98 97 Oximetry 01/08/21 01/08/21 01/08/21 04:21 04:31 04:41 Temperature Pulse Rate 71 72 71 Pulse Rate [ From Monitor] Respiratory 15 18 19 Rate Blood Pressure 116/53 116/53 116/53 O2 Sat by Pulse 97 97 98 Oximetry 01/08/21 01/08/21 01/08/21 04:51 05:01 05:11 Temperature Pulse Rate 70 72 70 Pulse Rate [ From Monitor] Respiratory 18 17 19 Rate Blood Pressure 116/53 86/49 86/49 O2 Sat by Pulse 99 100 99 Oximetry 01/08/21 01/08/21 01/08/21 05:21 05:31 05:40 Temperature Pulse Rate 72 71 70 Pulse Rate [ From Monitor] Respiratory 14 21 16 Rate Blood Pressure 86/49 86/49 89/51 O2 Sat by Pulse 99 98 100 Oximetry 01/08/21 01/08/21 01/08/21 05:51 06:00 06:11 Temperature Pulse Rate 75 70 75 Pulse Rate [ From Monitor] Respiratory 20 23 20 Rate Blood Pressure 86/49 92/54 92/54 O2 Sat by Pulse 97 98 95 Oximetry 01/08/21 01/08/21 01/08/21 06:21 06:31 06:41 Temperature Pulse Rate 76 74 76 Pulse Rate [ From Monitor] Respiratory 19 20 19 Rate Blood Pressure 92/54 92/54 92/54 O2 Sat by Pulse 98 99 99 Oximetry 01/08/21 01/08/21 01/08/21 06:51 07:00 07:11 Temperature Pulse Rate 74 70 74 Pulse Rate [ From Monitor] Respiratory 19 11 L 22 Rate Blood Pressure 92/54 83/47 83/47 O2 Sat by Pulse 99 98 100 Oximetry 01/08/21 01/08/21 01/08/21 07:12 07:21 07:31 Temperature 97.7 F Pulse Rate 76 74 Pulse Rate [ From Monitor] Respiratory 22 20 Rate Blood Pressure 83/47 97/52 O2 Sat by Pulse 99 99 Oximetry 01/08/21 01/08/21 01/08/21 07:41 07:51 08:00 Temperature Pulse Rate 76 75 74 Pulse Rate [ 71 From Monitor] Respiratory 15 21 20 Rate Blood Pressure 97/52 97/52 86/49 O2 Sat by Pulse 97 99 100 Oximetry Constitutional: no acute distress, alert Eyes: non-icteric ENT: oropharynx dry, other (poor dentition) Neck: supple, no lymphadenopathy, no JVD Effort: normal Ascultation: Bilateral: rhonchi Percussion: Bilateral: not dull Cardiovascular: regular rate and rhythm Gastrointestinal: soft, non-tender, non-distended Integumentary: normal Extremities: no edema, pink and warm, pulses normal Neurologic: pupils equal and round, CN II-XII normal Psychiatric: other (cognitive dysfunction) CBC and BMP: 01/07/21 11:23 01/08/21 18:13 Abnormal lab findings: Abnormal Labs 01/07/21 01/07/21 01/07/21 10:59 11:23 11:23 WBC 15.5 H RBC 2.93 L Hgb 9.2 L Hct 29.8 L MCV 102 H Plt Count 584 H Lymph % (Auto) 4.6 L Lymph # (Auto) 0.7 L Seg Neutrophils % 89.5 H Seg Neutrophils # 13.8 H Sodium 129 L Potassium 5.2 H Chloride 85.6 L Carbon Dioxide 15 L BUN 49 H Glucose 780 H* POC Glucose > 600 H Lactic Acid Magnesium Alkaline Phosphatase 242 H Albumin 3.5 L 01/07/21 01/07/21 01/07/21 11:23 12:40 12:40 WBC RBC Hgb Hct MCV Plt Count Lymph % (Auto) Lymph # (Auto) Seg Neutrophils % Seg Neutrophils # Sodium Potassium Chloride Carbon Dioxide BUN Glucose POC Glucose Lactic Acid 4.00 H* 3.90 H* Magnesium 2.50 H Alkaline Phosphatase Albumin 01/07/21 01/07/21 01/07/21 12:40 15:20 15:20 WBC RBC Hgb Hct MCV Plt Count Lymph % (Auto) Lymph # (Auto) Seg Neutrophils % Seg Neutrophils # Sodium 131 L 135 L Potassium 5.5 H Chloride 86.3 L 95.2 L Carbon Dioxide 16 L 18 L BUN 48 H 41 H Glucose 764 H* 578 H* POC Glucose Lactic Acid 3.20 H* Magnesium Alkaline Phosphatase Albumin 01/07/21 01/07/21 01/07/21 16:00 17:38 19:57 WBC RBC Hgb Hct MCV Plt Count Lymph % (Auto) Lymph # (Auto) Seg Neutrophils % Seg Neutrophils # Sodium Potassium Chloride Carbon Dioxide BUN Glucose POC Glucose 402 H 204 H 291 H Lactic Acid Magnesium Alkaline Phosphatase Albumin 01/07/21 01/07/21 01/07/21 20:29 20:56 22:04 WBC RBC Hgb Hct MCV Plt Count Lymph % (Auto) Lymph # (Auto) Seg Neutrophils % Seg Neutrophils # Sodium 135 L Potassium 5.1 H Chloride Carbon Dioxide 17 L BUN 32 H Glucose 422 H POC Glucose 406 H 359 H Lactic Acid Magnesium Alkaline Phosphatase Albumin 01/07/21 01/08/21 01/08/21 23:07 00:07 01:04 WBC RBC Hgb Hct MCV Plt Count Lymph % (Auto) Lymph # (Auto) Seg Neutrophils % Seg Neutrophils # Sodium Potassium Chloride Carbon Dioxide BUN Glucose POC Glucose 263 H 146 H 123 H Lactic Acid Magnesium Alkaline Phosphatase Albumin 01/08/21 03:56 WBC RBC Hgb Hct MCV Plt Count Lymph % (Auto) Lymph # (Auto) Seg Neutrophils % Seg Neutrophils # Sodium Potassium Chloride Carbon Dioxide BUN 26 H Glucose 110 H POC Glucose Lactic Acid Magnesium Alkaline Phosphatase Albumin Allied health notes reviewed: nursing
[2021-01-08] MEDS: INSULIN REGULAR, HUMAN 100 UNITS/1 ML SUB-Q SCH ×2 (13:50→17:40)
[2021-01-08 19:07] LABS: Blood Urea Nitrogen 20 mg/dL (7-17); Calcium 8.8 mg/dL (8.4-10.2); Hemolysis Index 5
[2021-01-08 19:09] LABS: BUN/Creatinine Ratio 33
--- NOTE | 2021-01-08 19:23 | Electrocardiograph Report ---
[facility] Test Date: 2021-01-07 Test Time: 11:25:46 Pat Name: VISHNU GABRIELA Department: Room: A474 Gender: F [employer]: LIANET : 1965 Requested By: SADAF ARANGO Order Number: [id number] Reading MD: Palak Brown Measurements Intervals [place] Rate: 122 P: 78 NM: 127 QRS: 23 QRSD: 70 T: 55 QT: 301 QTc: 429 Interpretive Statements Sinus tachycardia Probable left atrial enlargement Probable left ventricular hypertrophy Compared to ECG 11/14/2020 21:24:48 No significant changes Electronically Signed On 01-08-2021 19:22:55 EDT by Palak Brown
[2021-01-08] MEDS: PRAVASTATIN 40 MG TAB PO SCH (21:29)
[2021-01-08] MEDS: INSULIN GLARGINE 100 UNITS/ML SUB-Q SCH (22:17)
--- NOTE | 2021-01-08 23:17 | Consultation ---
DATE OF CONSULTATION: 01/07/2021 PULMONARY CRITICAL CARE CONSULTATION CONSULTING PHYSICIAN: Dr. Francesco Khalil. REASON FOR CONSULTATION: Sepsis, diabetic ketoacidosis. CHIEF COMPLAINT AND HISTORY OF PRESENT ILLNESS: The patient is a now 55-year-old female known to me from prior admissions, resident of [facility] with history of vascular dementia and debility, but also diabetic, poor historian, has significant cognitive dysfunction, came into the Emergency Room after she was found with a fever of 101 degrees Fahrenheit. She was also tachycardic. When EMS got there, they found her to indeed be in distress, she was brought into the Emergency Room. While in the ER, she was found to have a pneumonia complicated by sepsis, diabetic ketoacidosis and [id number] metabolic encephalopathy. We are asked to assist with management. When I stopped by to see her in the Emergency Room, she was a little more coherent, but again her baseline dementia is significant. She clearly could tell me that she was not feeling well. When asked if she was in pain, it was unclear what her response was actually, but she was hemodynamically stable at the time on IV insulin drip at 8 units per hour. This really is as much of the history of presentation as I have. The patient is not a current smoker, remote history is unknown. PAST MEDICAL HISTORY: Again, diabetes, hypertension, vascular dementia, hyperlipidemia, recent acute hypoxemic respiratory failure. PAST SURGICAL HISTORY: I believe she is status post percutaneous endoscopic gastrostomy tube. Indeed, she has a history of a PEG. MEDICATIONS: She was on at the time when I stopped by to see her, according to the medication administration record included the following: She was on Tylenol 650 mg p.o. q.6 hours p.r.n. mild pain or fevers, albuterol nebulizer treatments 2.5 mg nebulized q.3 hours p.r.n. shortness of breath, Dilaudid 0.25 mg IV q.4 hours p.r.n. moderate pain, insulin drip was going at 8 units per hour, Levaquin 750 mg IV daily. ALLERGIES: No known drug allergies. DIET: Cachectic lady, no significant weight changes since I have last seen her. FAMILY AND SOCIAL HISTORY: correction resident. No current alcohol, tobacco or illicit drug use or abuse. Remote history is unknown. Family history is otherwise significant for diabetes and hypertension. REVIEW OF SYSTEMS: Difficult to obtain secondary to the patient's medical and mental condition. Since she has been in the Emergency Room, no gross hematochezia or melena, no gross hematuria, no hematemesis, no hemoptysis, no emesis, no witnessed seizures. Review of systems otherwise unobtainable or as in the body of history above. PHYSICAL EXAMINATION: VITAL SIGNS: At presentation, she had a fever of 101 degrees Fahrenheit, pulse of 126, respiratory rate as high as 50 and blood pressure 139/77, O2 sats were 93%, inspired oxygen concentration at that time was not clear at the time that I stopped by to see her O2 sats were about 98% that was on I believe about 3 liters nasal cannula. GENERAL: She is a middle-aged, chronically ill looking female. Normocephalic and atraumatic. Resting in bed with mildly increased respiratory effort at rest. HEAD, EYES, EARS, NOSE AND THROAT: Anicteric. No conjunctival erythema. Oropharynx was dry. Poor oral hygiene. No thyromegaly. NECK: No gross jugular venous distention. Grossly, there were no palpable lymph nodes in the supraclavicular or submandibular lymph node chains. LUNGS: Auscultation of both lung ibanez significant for diminished bilateral air movement; however, clear. HEART: Sounds 1 and 2 are heard. Regular rate and rhythm at the time of my evaluation without overt rubs or murmurs. She had tachycardia going at about 115 beats per minute. ABDOMEN: Soft, flat, bowel sounds are positive. PEG in place, nontender, no palpable hepatosplenomegaly. EXTREMITIES: Without overt digital clubbing or cyanosis, no pedal edema. Pedal pulses were 2+ bilaterally. NEUROLOGIC: Pupils were equal, round, about 4 mm, reactive to light. Extraocular muscle movements were intact. She moves all 4 extremities, responds spontaneously. SKIN: Poor turgor without overt cellulitis or rash in the areas I examined. Please see the wound care nurses' notes for full description of the skin. PSYCHIATRIC: Mood and affect were normal. She looked kind of anxious. She had very poor judgment and insight. LABORATORY DATA: From my review are as follows: Admission white cell count was 15,500; hemoglobin 9.2; hematocrit 29.8; platelet count 584. Serum sodium 129, potassium 5.2, chloride 86, bicarbonate 15, BUN 49, creatinine 1.2, glucose was 780. Lactic acid level was 4.0. Liver function tests otherwise essentially within normal limits. Urinalysis negative for leukocyte esterase and nitrites, no significant white cells per high power field. Two sets of blood cultures are no growth to date. A chest x-ray has been reviewed. I was able to compare with a chest x-ray from just a little more than a month ago. When compared to that x-ray, the right perihilar infiltrate appears improved slightly. There is evidence of mild hyperinflation; however, no gross consolidation, pneumothorax or focal infiltrate, perhaps a faint developing pneumonia in the left mid lung zones. ASSESSMENT: 1. Acute hypoxemic respiratory failure. 2. Diabetic ketoacidosis. 3. Severe sepsis, likely due to pneumonia. 4. Pneumonia. 5. Metabolic acidosis. 6. History of vascular dementia. 7. History of hyperlipidemia. 8. Adult failure to thrive. 9. Moderate protein-calorie malnutrition. 10. Anemia that is microcytic. 11. Hyperkalemia. 12. Acute kidney injury. 13. Hypoalbuminemia. PLAN: She will continue on the DKA protocol. I do agree with empiric Levaquin monotherapy. I think 5 days of therapy should be appropriate. Two sets of blood cultures have been ordered and will be followed. Volume resuscitation is ongoing. We will trend the lactic acid levels. I will also get a procalcitonin level to help guide clinical decision making. Oxygen will be weaned to keep sats greater than or equal to about 92%. Aspiration precautions continue to be maintained. Enteral nutrition will be the feeding modality of choice, I believe she has a history of aspiration. Electrolytes will be monitored closely and corrected as necessary. Hopefully, the kidney injury resolves with hydration. She will be placed on GI prophylaxis as well as DVT prophylaxis. Flu and pneumonia vaccination will be addressed per protocol. Vasopressors will be weaned as necessary to keep mean arterial pressures greater than or equal to 65 mmHg. Thank you very much for the consult, Dr. Khalil. We will follow along and make further recommendations as picture progresses/becomes clearer. TID: [id number] RECEIPT: [id number] LISA/JITENDRA
[2021-01-09] MEDS: INSULIN REGULAR, HUMAN 100 UNITS/1 ML SUB-Q SCH ×4 (00:10→17:10)
--- NOTE | 2021-01-09 08:21 | Progress Note ---
Assessment and Plan Assessment and plan: Sepsis Pneumonia DKA Toxic metabolic encephalopathy 01/08/2021. DKA has resolved. We will transition from IV insulin drip to long- acting 7030x1 today. Patient will resume home long-acting Lantus this evening. Sliding scale regular insulin and Accu-Cheks. Continue IV antibiotics for sepsis/pneumonia. Follow-up blood cultures. 01/09/2021. BG well controlled. Continue current basal and sliding scale insulin regimen. Continue IV antibiotics for sepsis/pneumonia x1 more day. Blood cultures no growth x24 hours. Blood cultures continue to remain negative and pneumonia improves, anticipate discharge in a.m. History Interval history: No new issues overnight Hospitalist Physical - Constitutional Vitals: Temp Pulse Resp BP Pulse Ox 97.7 F 78 16 105/60 93 01/09/21 07:21 01/09/21 07:21 01/09/21 07:21 01/09/21 07:21 01/09/21 07:21 General appearance: Present: mild distress, cachectic - EENT Eyes: Present: PERRL, EOM intact ENT: hearing intact, clear oral mucosa, dentition normal - Neck Neck: Present: supple, normal ROM - Respiratory Respiratory effort: normal Respiratory: bilateral: CTA - Cardiovascular Rhythm: regular Heart Sounds: Present: S1 & S2. Absent: gallop, rub - Extremities Extremities: no ischemia, No edema, Full ROM - Abdominal General gastrointestinal: soft, non-tender, non-distended, normal bowel sounds - Integumentary Integumentary: Present: clear, warm, dry - Neurologic Neurologic: CNII-XII intact, moves all extremities Results - Labs CBC & Chem 7: 01/07/21 11:23 01/08/21 18:13 Labs: Laboratory Last Values WBC 15.5 K/mm3 (4.5-11.0) H 01/07/21 11:23 RBC 2.93 M/mm3 (3.65-5.03) L 01/07/21 11:23 Hgb 9.2 gm/dl (10.1-14.3) L 01/07/21 11:23 Hct 29.8 % (30.3-42.9) L 01/07/21 11:23 MCV 102 fl (79-97) H 01/07/21 11:23 MCH 31 pg (28-32) 01/07/21 11:23 MCHC 31 % (30-34) 01/07/21 11:23 RDW 14.9 % (13.2-15.2) 01/07/21 11:23 Plt Count 584 K/mm3 (140-440) H 01/07/21 11:23 Lymph % (Auto) 4.6 % (13.4-35.0) L 01/07/21 11:23 Antelope % (Auto) 5.4 % (0.0-7.3) 01/07/21 11:23 Eos % (Auto) 0.1 % (0.0-4.3) 01/07/21 11:23 Baso % (Auto) 0.4 % (0.0-1.8) 01/07/21 11:23 Lymph # (Auto) 0.7 K/mm3 (1.2-5.4) L 01/07/21 11:23 Antelope # (Auto) 0.8 K/mm3 (0.0-0.8) 01/07/21 11:23 Eos # (Auto) 0.0 K/mm3 (0.0-0.4) 01/07/21 11:23 Baso # (Auto) 0.1 K/mm3 (0.0-0.1) 01/07/21 11:23 Seg Neutrophils % 89.5 % (40.0-70.0) H 01/07/21 11:23 Seg Neutrophils # 13.8 K/mm3 (1.8-7.7) H 01/07/21 11:23 Sodium 130 mmol/L (137-145) L D 01/08/21 18:13 Potassium 4.3 mmol/L (3.6-5.0) 01/08/21 18:13 Chloride 98.2 mmol/L (98-107) 01/08/21 18:13 Carbon Dioxide 23 mmol/L (22-30) 01/08/21 18:13 Anion Gap 13 mmol/L 01/08/21 18:13 BUN 20 mg/dL (7-17) H 01/08/21 18:13 Creatinine 0.6 mg/dL (0.6-1.2) 01/08/21 18:13 Estimated GFR > 60 ml/min 01/08/21 18:13 BUN/Creatinine Ratio 33 % 01/08/21 18:13 Glucose 140 mg/dL (65-100) H 01/08/21 18:13 POC Glucose 64 mg/dL (70-105) L 01/09/21 06:26 Hemoglobin A1c 9.7 % (4-6) H 01/08/21 18:13 Lactic Acid 3.20 mmol/L (0.7-2.0) H* 01/07/21 15:20 Calcium 8.8 mg/dL (8.4-10.2) 01/08/21 18:13 Phosphorus 2.50 mg/dL (2.5-4.5) D 01/07/21 15:20 Magnesium 2.30 mg/dL (1.7-2.3) 01/07/21 15:20 Total Bilirubin 0.20 mg/dL (0.1-1.2) 01/07/21 11:23 AST 14 units/L (5-40) 01/07/21 11:23 ALT 18 units/L (7-56) 01/07/21 11:23 Alkaline Phosphatase 242 units/L (35-129) H 01/07/21 11:23 Total Protein 7.8 g/dL (6.3-8.2) 01/07/21 11:23 Albumin 3.5 g/dL (3.9-5) L 01/07/21 11:23 Albumin/Globulin Ratio 0.8 % 01/07/21 11:23 Urine Color Straw (Yellow) 01/07/21 12:12 Urine Turbidity Clear (Clear) 01/07/21 12:12 Urine pH 5.0 (5.0-7.0) 01/07/21 12:12 Ur Specific [place] 1.022 (1.003-1.030) 01/07/21 12:12 Urine Protein 30 mg/dl mg/dL (Negative) 01/07/21 12:12 Urine Glucose (UA) >=500 mg/dL (Negative) 01/07/21 12:12 Urine Ketones 20 mg/dL (Negative) 01/07/21 12:12 Urine Blood Neg (Negative) 01/07/21 12:12 Urine Nitrite Neg (Negative) 01/07/21 12:12 Urine Bilirubin Neg (Negative) 01/07/21 12:12 Urine Urobilinogen < 2.0 mg/dL (<2.0) 01/07/21 12:12 Ur Leukocyte Esterase Neg (Negative) 01/07/21 12:12 Urine WBC (Auto) 1.0 /HPF (0.0-6.0) 01/07/21 12:12 Urine RBC (Auto) 1.0 /HPF (0.0-6.0) 01/07/21 12:12 U Epithel Cells (Auto) < 1.0 /HPF (0-13.0) 01/07/21 12:12 Urine Bacteria (Auto) 1+ /HPF (Negative) 01/07/21 12:12 Blood Type O POSITIVE 01/07/21 15:20 Antibody Screen Negative 01/07/21 15:20 Microbiology: Microbiology 01/07/21 11:23 Peripheral/Venous Blood Culture - Preliminary NO GROWTH AFTER 24 HOURS 01/07/21 11:23 Peripheral/Venous Blood Culture - Preliminary NO GROWTH AFTER 24 HOURS Verma/IV: Voiding Method Indwelling Catheter Active Medications - Current Medications Current Medications: Generic Name Dose Route Start Last Admin Trade Name Freq PRN Reason Stop Dose Admin Acetaminophen 650 mg 01/07/21 13:25 Acetaminophen 325 Mg Tab PO Q6H PRN Pain, Mild (1-3) Albuterol 2.5 mg 01/07/21 13:25 Albuterol 2.5 Mg/3 Ml Nebu IH Q3HRT PRN Shortness Of Breath Lipase/Protease/Amylase 1 each 01/08/21 07:35 Lipase 10,500/Protease 25,000/Amylase 43,750 (Units) Dr Braun FEEDTUBE PRN PRN For Clogged Feeding Tube Lipase/Protease/Amylase 1 each 01/08/21 10:12 Lipase 10,500/Protease 25,000/Amylase 43,750 (Units) Dr Braun FEEDTUBE PRN PRN For Clogged Feeding Tube Ascorbic Acid 500 mg 01/08/21 10:00 01/08/21 09:00 Ascorbic Acid 500 Mg Tab PO 500 mg DAILY SHAHLA Administration Citalopram Hydrobromide 20 mg 01/08/21 10:00 01/08/21 09:00 Citalopram 20 Mg Tab PO 20 mg QDAY SHAHLA Administration Dextrose 50 ml 01/08/21 07:37 Dextrose 50% In Water (25gm) 50 Ml Syringe IV Q30MIN PRN Hypoglycemia Protocol Enoxaparin Sodium 40 mg 01/09/21 10:00 Enoxaparin 40 Mg/0.4 Ml Inj SUB-Q QDAY@1000 SHAHLA Famotidine 20 mg 01/08/21 10:00 01/08/21 09:00 Famotidine 20 Mg Tab PO 20 mg QDAY SHAHLA Administration Hydromorphone HCl 0.25 mg 01/07/21 13:25 Hydromorphone 1 Mg/1 Ml Inj IV Q4H PRN Pain, Moderate (4-6) Levofloxacin/Dextrose 750 mg in 150 mls @ 100 mls/hr 01/07/21 14:00 01/08/21 13:52 Levaquin 750mg/150ml IV 01/11/21 15:29 100 mls/hr Q24H [facility] Administration Protocol Sodium Chloride 1,000 mls @ 75 mls/hr 01/08/21 07:45 Nacl 0.9% 1000 Ml IV DIRECT SHAHLA Insulin Glargine 30 units 01/08/21 22:00 01/08/21 22:17 Insulin Glargine 100 Units/Ml SUB-Q 30 units QHS [facility] Administration Insulin Human Regular 0 units 01/08/21 12:00 01/09/21 06:40 Insulin Regular, Human 100 Units/1 Ml SUB-Q Not Given Q6HR [facility] Protocol Multivitamins 5 ml 01/08/21 10:00 01/08/21 09:01 Multivitamins 5 Ml Oral Liquid PO 5 ml QDAY SHAHLA Administration Pravastatin Sodium 40 mg 01/08/21 22:00 01/08/21 21:29 Pravastatin 40 Mg Tab PO 40 mg QHS SHAHLA Administration Simple Syrup 15 ml 01/08/21 10:12 Simple Syrup 15 Ml FEEDTUBE PRN PRN Hypoglycemia Simple Syrup 30 ml 01/08/21 10:12 Simple Syrup 15 Ml FEEDTUBE PRN PRN Hypoglycemia Sodium Bicarbonate 325 mg 01/08/21 10:12 Sodium Bicarbonate 325 Mg Tab FEEDTUBE PRN PRN For Clogged Feeding Tube Sodium Chloride 10 ml 01/07/21 22:00 01/08/21 21:29 Sodium Chloride 0.9% 10 Ml Flush Syringe IV 10 ml BID SHAHLA Administration Sodium Chloride 10 ml 01/07/21 13:25 Sodium Chloride 0.9% 10 Ml Flush Syringe IV PRN PRN LINE FLUSH Nutrition/Malnutrition Assess - Dietary Evaluation Nutrition/Malnutrition Findings: Nutrition Notes Start: 01/08/21 11:43 Freq: Status: Active Protocol: Document 01/08/21 11:43 LISA (Rec: 01/08/21 11:54 LISA [id number]) Nutrition Notes Need for Assessment generated from: 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 RN screen for skin risk and MST. Screen for low BMI. Pt has PEG from previous adm. Pt with Glucerna 1.2 at 10 ml/hr at time of visit. Pt has a red sacral area, per RN. Per previous visit, pt unable to tolerate PO. Burn Absent Trauma Absent Difficulty In Swallowing,Chewing Current % PO Negligible Minimum of two criteria No Muscle Mass Mild Depletion (non-severe) #1 Nutrition Diagnosis Biting/Chewing (masticatory) difficulty Etiology severe periodontitis, demetia As Evidenced by Signs and Symptoms pt unable to tolerate PO, PEG placement Is patient on ventilator? No Is Patient Ambulatory and/or Out of Bed No REE-([facility]-confined to bed) 1241.940 Kcal/Kg value to use for calculation 34 Approximate Energy Requirements Using 1533 kcal/Kg Calculation Used for Recommendations Kcal/kg Additional Notes Protein: (1.25-1.5g/kg) 56-68g Fluid: 1 ml/kcal or per Nutrition Intervention Change Diet Order: Continue Glucerna 1.2 Nutrition Support: Glucerna 1.2 at 55 ml/hr Flush 100 ml q4h Kcal 1,584 Protein (gm) 79 Fluid (mL) 1,063 Goal #1 Meet at least 75% of protein and energy needs via TF Anticipated Discharge Needs: Glucerna 1.2 at 55 ml/hr Flush 100 ml q4h Follow-Up By: 01/10/21 Additional Comments FU for TF tolerance
[2021-01-09] MEDS: ASCORBIC ACID 500 MG TAB PO SCH (09:17)
[2021-01-09] MEDS: FAMOTIDINE 20 MG TAB PO SCH (09:17)
[2021-01-09] MEDS: CITALOPRAM 20 MG TAB PO SCH (09:17)
[2021-01-09] MEDS: ENOXAPARIN 40 MG/0.4 ML INJ SUB-Q SCH (09:17)
[2021-01-09] MEDS: MULTIVITAMINS 5 ML ORAL LIQUID PO SCH (09:18)
[2021-01-09] MEDS: INSULIN GLARGINE 100 UNITS/ML SUB-Q SCH (21:45)
[2021-01-09] MEDS: PRAVASTATIN 40 MG TAB PO SCH (21:45)
[2021-01-10] MEDS: INSULIN REGULAR, HUMAN 100 UNITS/1 ML SUB-Q SCH ×3 (00:05→12:12)
--- NOTE | 2021-01-10 08:23 | Discharge Summary ---
Providers - Providers Date of Admission: 01/07/21 13:25 Date of discharge: 01/10/21 Attending physician: JUAN LINDSEY 01/07/21 13:25 Consult to Physician [CONS] Routine Comment: Consulting Provider: CHANTALE LEAL Physician Instructions: Reason For Exam: sepsis/dka 01/08/21 10:12 Consult to Dietitian/Nutrition [CONS] Routine Physician Instructions: Assess nutrtn needs, initiate, modify, manage TF Reason For Exam: Reason for Consult: Write/Manage Tube Feeding Reason for Consult: Write/Manage Tube Feeding 01/09/21 16:08 Consult to Wound/ET Nurse [CONS] Routine Reason For Exam: wound eval Primary care physician: 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 Patient seen and evaluated in the emergency department. Lab and imaging studies reviewed. Patient was admitted with diagnosis of left sided Pneumonia complicated by Sepsis, diabetic ketoacidosis, metabolic acidosis, metabolic encephalopathy. Patient admitted to ICU and initiated on DKA protocol as well as pneumonia protocol. The patient was treated with IV antibiotics and IV insulin drip. DKA resolved and patient was transitioned to long-acting insulin. Patient was continued on IV antibiotics for the pneumonia. Blood cultures were found to be negative x48 hours. The patient will be discharged back to the [facility] with p.o. antibiotic of Levaquin. Patient is to follow- up with the medical chemist at facility. Dedicated discharge time 35 minutes Disposition: DC-01 TO HOME OR SELFCARE Final Discharge Diagnosis (Prints w/discharge instructions): Sepsis, acute hypoxic respiratory failure, DKA, metabolic acidosis, oropharyngeal dysphagia, left lower lobe pneumonia - Discharge Diagnoses (1) Acute sepsis Status: Acute (2) DKA (diabetic ketoacidoses) Status: Acute Qualifiers: Diabetes mellitus type: type 1 (3) Hyponatremia syndrome Status: Acute (4) Pneumonia Status: Acute (5) Acute hypoxemic respiratory failure Status: Acute (6) Dysphagia Status: Acute Core Measure Documentation - Palliative Care Palliative Care/ Comfort Measures: Not Applicable - Core Measures Any of the following diagnoses?: none Exam - Constitutional Vitals: Temp Pulse Resp BP Pulse Ox 98.7 F 74 16 101/55 96 01/10/21 04:25 01/10/21 04:25 01/10/21 04:25 01/10/21 04:25 01/10/21 04:25 General appearance: Present: no acute distress, well-nourished - EENT Eyes: Present: PERRL ENT: hearing intact, clear oral mucosa - Neck Neck: Present: supple, normal ROM - Respiratory Respiratory effort: normal Respiratory: bilateral: CTA - Cardiovascular Heart Sounds: Present: S1 & S2. Absent: rub, click - Extremities Extremities: pulses symmetrical, No edema Peripheral Pulses: within normal limits - Abdominal General gastrointestinal: Present: soft, non-tender, non-distended, normal bowel sounds Female genitourinary: Present: normal - Integumentary Integumentary: Present: clear, warm, dry - Musculoskeletal Musculoskeletal: gait normal, strength equal bilaterally - Psychiatric Psychiatric: appropriate mood/affect, intact judgment & insight - Neurologic Neurologic: CNII-XII intact, moves all extremities Plan Activity: advance as tolerated Weight Bearing Status: Weight Bear as Tolerated Diet: other (Tube feedings) Follow up with: PRIMARY CARE, [Primary Care Provider] - 3-5 Days Prescriptions: levoFLOXacin [Levaquin] 750 mg PO QDAY #10 tablet
[2021-01-10] MEDS: FAMOTIDINE 20 MG TAB PO SCH (09:05)
[2021-01-10] MEDS: CITALOPRAM 20 MG TAB PO SCH (09:05)
[2021-01-10] MEDS: ASCORBIC ACID 500 MG TAB PO SCH (09:05)
[2021-01-10] MEDS: ENOXAPARIN 40 MG/0.4 ML INJ SUB-Q SCH (09:06)
[2021-01-10] MEDS: MULTIVITAMINS 5 ML ORAL LIQUID PO SCH (10:14)
[2021-01-10 12:33] VITALS: BP 117/74
== END 2021-01-10 17:00 | DRG 871 ==
LOC: ED 10:36 → CC1 13:25 → 4A 01-08 16:19
PROVIDERS: ADMIT Internal Medicine; ATTEND Hospitalist
DX: A41.9 Sepsis, unspecified organism (principal); E10.10 Type 1 diabetes mellitus with ketoacidosis without coma; J18.9 Pneumonia, unspecified organism; J96.01 Acute respiratory failure with hypoxia; G92 Toxic encephalopathy; Z68.1 Body mass index [BMI] 19.9 or less, adult; E44.0 Moderate protein-calorie malnutrition; N17.9 Acute kidney failure, unspecified; E87.1 Hypo-osmolality and hyponatremia; R65.20 Severe sepsis without septic shock; E78.5 Hyperlipidemia, unspecified; E87.5 Hyperkalemia; D50.9 Iron deficiency anemia, unspecified; E88.09 Other disorders of plasma-protein metabolism, not elsewhere classified; F01.50 Vascular dementia, unspecified severity, without behavioral disturbance, psychotic disturbance, mood disturbance, and anxiety; R53.81 Other malaise; R13.12 Dysphagia, oropharyngeal phase; Z79.4 Long term (current) use of insulin; Z79.899 Other long term (current) drug therapy; Z82.49 Family history of ischemic heart disease and other diseases of the circulatory system; Z83.3 Family history of diabetes mellitus
CPT/HCPCS: 36415; 71045; 80048; 80053; 81001; 82140; 82962; 83036; 83735; 84100; 85025; 86850; 86900; 86901; 87040; 93005; 96365; 96375; G0378; J1170; J1650; J1815; J1956; J2543; J7030

== ENCOUNTER 2021-01-31 08:19 | Inpatient (IN) | payer MEDICARE ==
[2021-01-31] MEDS ORDERED: SODIUM CHLORIDE 0.9% 1000 ML IV SOLN IV ONE (08:52)
[2021-01-31] MEDS ORDERED: CEFEPIME/NS 2 GM/100 ML 2 GM/100 ML BAG IV ONE (09:10)
--- NOTE | 2021-01-31 09:14 | Emergency Department Report ---
HPI - General Chief Complaint: Fever Time Seen by Provider: 01/31/21 08:36 - HPI HPI: 55-year-old female with very complex medical history including hypertension, CKD, vascular dementia, chronic dysphagia requiring a PEG tube, DM 2 with frequent DKA, is brought in by EMS from her residential with initial complaint being hyperglycemia. Apparently her glucose was in the 400s. However, after assessment she was noted to be febrile. She was apparently satting 88% on room air which corrected with nonrebreather. The patient can only speak with dysarth meena and use a few words. However, when asked if she has any pain she points to her vaginal region. Because of her mentation level, she does not give consistent answers and further details of the HPI currently limited due to her clinical condition ED Past Medical Hx - Past Medical History Hx Diabetes: Yes Hx Renal Disease: Yes (Had UTI and sepsis-->DKA on admission. RACH/ATN) Hx Psychiatric Treatment: (anxiety) Hx Dementia: Yes Hx HIV: No Additional medical history: COVID +, history of Falling - Social History Smoking Status: Unknown if ever smoked - Medications Home Medications: Home Medications Medication Instructions Recorded Confirmed Last Taken Type Citalopram [Celexa] 20 mg PO QDAY 01/25/20 01/07/21 Unknown History Pravastatin [Pravachol] 40 mg PO QHS 01/25/20 01/07/21 Unknown History Acetaminophen [Mapap] 650 mg PO BID PRN 02/26/20 01/07/21 Unknown History Ascorbic Acid [Vitamin C with Chetna 500 mg PO DAILY 02/26/20 01/07/21 Unknown History Hips] Glimepiride [Amaryl] 4 mg PO QAM 02/26/20 01/07/21 Unknown History Insulin Lispro [Humalog] 5 units SQ AC 02/26/20 01/07/21 Unknown History Multivit-Min/Ferrous Fumarate 15 mg PO DAILY 02/26/20 01/07/21 Unknown History [Multivitamin with Minerals Tab] Apixaban [Eliquis] 2.5 mg PO BID #30 tablet 03/01/20 01/07/21 Unknown Rx Famotidine [Pepcid] 20 mg PO QDAY #30 tablet 11/26/20 01/07/21 Unknown Rx Insulin Glargine [Lantus VIAL] 30 units SUB-Q QHS #10 units 11/26/20 01/07/21 Unknown Rx Lipase/Protease/Amylase [Pancreaze 1 each FEEDTUBE PRN PRN capsule 11/26/20 01/07/21 Unknown Rx 10,500 Unit] Insulin Regular, Human [HumuLIN R] 0 units SUB-Q Q6HR units 01/10/21 Unknown Rx Simple Syrup 15 ml FEEDTUBE PRN PRN oral.liqd 01/10/21 Unknown Rx Simple Syrup 30 ml FEEDTUBE PRN PRN oral.liqd 01/10/21 Unknown Rx Sodium Bicarbonate 325 mg FEEDTUBE PRN PRN tablet 01/10/21 Unknown Rx levoFLOXacin [Levaquin] 750 mg PO QDAY #10 tablet 01/10/21 Unknown Rx ED Review of Systems ROS: Stated complaint: SEPSIS/ALTERED MENTAL STATUS Other details as noted in HPI Comment: Unobtainable due to pts medical conditions Physical Exam - Physical Exam Vital Signs: Vital Signs 01/31/21 01/31/21 08:41 08:45 Temperature 102.6 F H Pulse Rate 129 H Respiratory 26 H Rate Blood Pressure 142/64 [Left] O2 Sat by Pulse 97 Oximetry Physical Exam: GENERAL: Frail appearing woman with extreme pallor. In moderate respiratory distress. HEENT: Normocephalic. No obvious signs of trauma. Dry mucous membranes. Extremely poor dentition with multiple necrotic and gangrenous teeth noted bilaterally and of the upper and lower teeth. There is no obvious drainable apical abscess. EYES: Extraocular movements are intact. Pupils are equal round and reactive to light bilaterally NECK: Supple. Trachea is midline. LUNGS: In moderate respiratory distress. There is equal chest rise bilaterally. Lung auscultation reveals scattered rales in all lung ibanez but more significantly on the left. HEART/CARDIOVASCULAR: Tachycardic but with regular rhythm. No murmurs or rubs. VASCULAR: 2+ peripheral pulses. ABDOMEN: Abdomen is soft and nondistended. There is no significant tenderness, guarding or rebound. GENITOURINARY: There is warmth and erythema of the vaginal region and perineum extending to the buttocks. There is no purplish discoloration or fluctuance. SKIN: Skin is warm and dry but with extreme pallor NEURO: Patient is awake and alert and able to nod or sometimes answer questions with one-word. She does not however cooperate fully with the neurologic exam. Her cranial nerves are grossly intact and she is seen moving all 4 extremities but is globally weak. There are no focal deficits. MUSCULOSKELETAL: No obvious deformities. No significant tenderness. Normal ROM throughout. BACK/SPINE: No midline tenderness or step-offs of the C/T/L spine. No costovertebral angle tenderness. ED Course Vital Signs 01/31/21 01/31/21 08:41 08:45 Temperature 102.6 F H Pulse Rate 129 H Respiratory 26 H Rate Blood Pressure 142/64 [Left] O2 Sat by Pulse 97 Oximetry ED Medical Decision Making - Lab Data Result diagrams: 01/31/21 09:58 01/31/21 09:58 Lab Results 01/31/21 01/31/21 01/31/21 Range/Units 09:00 09:58 09:58 WBC 1.6 L* (4.5-11.0) K/mm3 RBC 3.43 L (3.65-5.03) M/mm3 Hgb 11.2 (10.1-14.3) gm/dl Hct 34.0 (30.3-42.9) % MCV 99 H (79-97) fl MCH 33 H (28-32) pg MCHC 33 (30-34) % RDW 14.0 (13.2-15.2) % Plt Count 293 (140-440) K/mm3 Add Manual Diff Complete Total Counted 100 Seg Neuts % (Manual) 46.0 (40.0-70.0) % Band Neutrophils % 14.0 % Lymphocytes % (Manual) 34.0 (13.4-35.0) % Reactive Lymphs % (Man) 1.0 % Monocytes % (Manual) 5.0 (0.0-7.3) % Nucleated RBC % Not Reportable Seg Neutrophils # Man 0.7 L (1.8-7.7) K/mm3 Band Neutrophils # 0.2 K/mm3 Lymphocytes # (Manual) 0.5 L (1.2-5.4) K/mm3 Abs React Lymphs (Man) 0.0 K/mm3 Monocytes # (Manual) 0.1 (0.0-0.8) K/mm3 Eosinophils # (Manual) 0.0 (0.0-0.4) K/mm3 Basophils # (Manual) 0.0 (0.0-0.1) K/mm3 Metamyelocytes # 0.0 K/mm3 Myelocytes # 0.0 K/mm3 Promyelocytes # 0.0 K/mm3 Blast Cells # 0.0 K/mm3 WBC Morphology Not Reportable Hypersegmented Neuts Not Reportable Hyposegmented Neuts Not Reportable Hypogranular Neuts Not Reportable Smudge Cells Not Reportable Toxic Granulation Not Reportable Toxic Vacuolation Not Reportable Dohle Bodies Not Reportable Pelger-Huet Anomaly Not Reportable Jamia Rods Not Reportable Platelet Estimate Consistent w auto Clumped Platelets Not Reportable Plt Clumps, EDTA Not Reportable Large Platelets Not Reportable Giant Platelets Not Reportable Platelet Satelliting Not Reportable Plt Morphology Comment Not Reportable RBC Morphology Not Reportable Dimorphic RBCs Not Reportable Polychromasia Not Reportable Hypochromasia Few Poikilocytosis Not Reportable Anisocytosis Not Reportable Microcytosis Not Reportable Macrocytosis Not Reportable Spherocytes Not Reportable Pappenheimer Bodies Not Reportable Sickle Cells Not Reportable Target Cells Not Reportable Tear Drop Cells Not Reportable Ovalocytes Not Reportable Helmet Cells Not Reportable Galvan-Mack Bodies Not Reportable Caspian Rings Not Reportable Luis Cells Not Reportable Bite Cells Not Reportable Crenated Cell Not Reportable Elliptocytes Not Reportable Acanthocytes (Spur) Not Reportable Rouleaux Not Reportable Hemoglobin C Crystals Not Reportable Schistocytes Not Reportable Malaria parasites Not Reportable ESR 40 (0-20) mm/Hr Felice Bodies Not Reportable Hem Pathologist Commnt No PT 18.3 H (12.2-14.9) Sec. INR 1.47 H (0.87-1.13) APTT 25.1 (24.2-36.6) Sec. Sodium (137-145) mmol/L Potassium (3.6-5.0) mmol/L Chloride (98-107) mmol/L Carbon Dioxide (22-30) mmol/L Anion Gap mmol/L BUN (7-17) mg/dL Creatinine (0.6-1.2) mg/dL Estimated GFR ml/min BUN/Creatinine Ratio % Glucose (65-100) mg/dL POC Glucose 237 H (70-105) mg/dL Lactic Acid (0.7-2.0) mmol/L Calcium (8.4-10.2) mg/dL Magnesium (1.7-2.3) mg/dL Total Bilirubin (0.1-1.2) mg/dL AST (5-40) units/L ALT (7-56) units/L Alkaline Phosphatase (35-129) units/L Troponin T (0.00-0.029) ng/mL C-Reactive Protein (0.00-1.30) mg/dL NT-Pro-B Natriuret Pep (0-900) pg/mL Total Protein (6.3-8.2) g/dL Albumin (3.9-5) g/dL Albumin/Globulin Ratio % Lipase (13-60) units/L 01/31/21 01/31/21 01/31/21 Range/Units 09:58 09:58 09:58 WBC (4.5-11.0) K/mm3 RBC (3.65-5.03) M/mm3 Hgb (10.1-14.3) gm/dl Hct (30.3-42.9) % MCV (79-97) fl MCH (28-32) pg MCHC (30-34) % RDW (13.2-15.2) % Plt Count (140-440) K/mm3 Add Manual Diff Total Counted Seg Neuts % (Manual) (40.0-70.0) % Band Neutrophils % % Lymphocytes % (Manual) (13.4-35.0) % Reactive Lymphs % (Man) % Monocytes % (Manual) (0.0-7.3) % Nucleated RBC % Seg Neutrophils # Man (1.8-7.7) K/mm3 Band Neutrophils # K/mm3 Lymphocytes # (Manual) (1.2-5.4) K/mm3 Abs React Lymphs (Man) K/mm3 Monocytes # (Manual) (0.0-0.8) K/mm3 Eosinophils # (Manual) (0.0-0.4) K/mm3 Basophils # (Manual) (0.0-0.1) K/mm3 Metamyelocytes # K/mm3 Myelocytes # K/mm3 Promyelocytes # K/mm3 Blast Cells # K/mm3 WBC Morphology Hypersegmented Neuts Hyposegmented Neuts Hypogranular Neuts Smudge Cells Toxic Granulation Toxic Vacuolation Dohle Bodies Pelger-Huet Anomaly Jamia Rods Platelet Estimate Clumped Platelets Plt Clumps, EDTA Large Platelets Giant Platelets Platelet Satelliting Plt Morphology Comment RBC Morphology Dimorphic RBCs Polychromasia Hypochromasia Poikilocytosis Anisocytosis Microcytosis Macrocytosis Spherocytes Pappenheimer Bodies Sickle Cells Target Cells Tear Drop Cells Ovalocytes Helmet Cells Galvan-Mack Bodies Caspian Rings [place] Cells Bite Cells Crenated Cell Elliptocytes Acanthocytes (Spur) Rouleaux Hemoglobin C Crystals Schistocytes Malaria parasites ESR (0-20) mm/Hr Felice Bodies Hem Pathologist Commnt PT (12.2-14.9) Sec. INR (0.87-1.13) APTT (24.2-36.6) Sec. Sodium 138 (137-145) mmol/L Potassium 2.4 L* (3.6-5.0) mmol/L Chloride 103.0 (98-107) mmol/L Carbon Dioxide 14 L (22-30) mmol/L Anion Gap 24 mmol/L BUN 22 H (7-17) mg/dL Creatinine 0.9 (0.6-1.2) mg/dL Estimated GFR > 60 ml/min BUN/Creatinine Ratio 24 % Glucose 132 H (65-100) mg/dL POC Glucose (70-105) mg/dL Lactic Acid 6.80 H* (0.7-2.0) mmol/L Calcium 9.3 (8.4-10.2) mg/dL Magnesium 1.80 (1.7-2.3) mg/dL Total Bilirubin < 0.20 (0.1-1.2) mg/dL AST 23 (5-40) units/L ALT 17 (7-56) units/L Alkaline Phosphatase 127 (35-129) units/L Troponin T < 0.010 (0.00-0.029) ng/mL C-Reactive Protein (0.00-1.30) mg/dL NT-Pro-B Natriuret Pep 1763 H (0-900) pg/mL Total Protein 6.2 L (6.3-8.2) g/dL Albumin 3.3 L (3.9-5) g/dL Albumin/Globulin Ratio 1.1 % Lipase 13 (13-60) units/L 01/31/ Range/Units 09:58 WBC (4.5-11.0) K/mm3 RBC (3.65-5.03) M/mm3 Hgb (10.1-14.3) gm/dl Hct (30.3-42.9) % MCV (79-97) fl MCH (28-32) pg MCHC (30-34) % RDW (13.2-15.2) % Plt Count (140-440) K/mm3 Add Manual Diff Total Counted Seg Neuts % (Manual) (40.0-70.0) % Band Neutrophils % % Lymphocytes % (Manual) (13.4-35.0) % Reactive Lymphs % (Man) % Monocytes % (Manual) (0.0-7.3) % Nucleated RBC % Seg Neutrophils # Man (1.8-7.7) K/mm3 Band Neutrophils # K/mm3 Lymphocytes # (Manual) (1.2-5.4) K/mm3 Abs React Lymphs (Man) K/mm3 Monocytes # (Manual) (0.0-0.8) K/mm3 Eosinophils # (Manual) (0.0-0.4) K/mm3 Basophils # (Manual) (0.0-0.1) K/mm3 Metamyelocytes # K/mm3 Myelocytes # K/mm3 Promyelocytes # K/mm3 Blast Cells # K/mm3 WBC Morphology Hypersegmented Neuts Hyposegmented Neuts Hypogranular Neuts Smudge Cells Toxic Granulation Toxic Vacuolation Dohle Bodies Pelger-Huet Anomaly Jamia Rods Platelet Estimate Clumped Platelets Plt Clumps, EDTA Large Platelets Giant Platelets Platelet Satelliting Plt Morphology Comment RBC Morphology Dimorphic RBCs Polychromasia Hypochromasia Poikilocytosis Anisocytosis Microcytosis Macrocytosis Spherocytes Pappenheimer Bodies Sickle Cells Target Cells Tear Drop Cells Ovalocytes Helmet Cells Galvan-Mack Bodies Caspian Rings Luis Cells Bite Cells Crenated Cell Elliptocytes Acanthocytes (Spur) Rouleaux Hemoglobin C Crystals Schistocytes Malaria parasites ESR (0-20) mm/Hr Felice Bodies Hem Pathologist Commnt PT (12.2-14.9) Sec. INR (0.87-1.13) APTT (24.2-36.6) Sec. Sodium (137-145) mmol/L Potassium (3.6-5.0) mmol/L Chloride (98-107) mmol/L Carbon Dioxide (22-30) mmol/L Anion Gap mmol/L BUN (7-17) mg/dL Creatinine (0.6-1.2) mg/dL Estimated GFR ml/min BUN/Creatinine Ratio % Glucose (65-100) mg/dL POC Glucose (70-105) mg/dL Lactic Acid (0.7-2.0) mmol/L Calcium (8.4-10.2) mg/dL Magnesium (1.7-2.3) mg/dL Total Bilirubin (0.1-1.2) mg/dL AST (5-40) units/L ALT (7-56) units/L Alkaline Phosphatase (35-129) units/L Troponin T (0.00-0.029) ng/mL C-Reactive Protein 2.50 H (0.00-1.30) mg/dL NT-Pro-B Natriuret Pep (0-900) pg/mL Total Protein (6.3-8.2) g/dL Albumin (3.9-5) g/dL Albumin/Globulin Ratio % Lipase (13-60) units/L - Radiology Data CHEST 1 VIEW 0943 INDICATION / CLINICAL INFORMATION: sepsis COMPARISON: 01/07/2021 FINDINGS: SUPPORT DEVICES: None HEART / MEDIASTINUM: Stable LUNGS / PLEURA: Chronic changes are again noted. Mild diffuse increase in interstitial markings are slightly more prominent and may indicate mild diffuse edema. Patchy possible pneumonic infiltrate is noted and appears more prominent in the left midlung. No dense areas of consolidation are seen. No pneumothorax. ADDITIONAL FINDINGS: No significant additional findings. Signer Name: Snug Quiros MD Signed: 01/31/2021 8:47 AM Workstation Name: [id number] CT CHEST, ABDOMEN, AND PELVIS WITHOUT CONTRAST INDICATION / CLINICAL INFORMATION: sepsis. TECHNIQUE: Axial CT images were obtained through the chest, abdomen, and pelvis without contrast. All CT scans at this location are performed using CT dose reduction for ALARA by means of automated exposure control. COMPARISON: CT abdomen pelvis 11/16/2020 and CTA chest 02/26/2020 FINDINGS: HEART: No significant abnormality. THORACIC AORTA: No significant abnormality. MEDIASTINUM and SARINA: No significant abnormality. LUNGS: There are moderate bilateral patchy airspace opacities with a dependent and lower lung zone predominance, with more focal consolidative opacities in the dependent lower lobes. PLEURA: No significant pleural effusion. No pneumothorax. ADDITIONAL CHEST FINDINGS: None. LIVER: No significant abnormality. GALLBLADDER: No significant abnormality. BILE DUCTS: No significant abnormality. PANCREAS: No significant abnormality. SPLEEN: No significant abnormality. ADRENALS: No significant abnormality. RIGHT KIDNEY and URETER: There is an unchanged nonobstructive 5 mm stone in the right lower pole. LEFT KIDNEY and URETER: Small left upper pole cyst. STOMACH and SMALL BOWEL: A gastrostomy tube is in place. No significant abnormality. COLON: Large amount of stool throughout the colon. APPENDIX: No significant abnormality. PERITONEUM: No free fluid. No free air. No fluid collection. LYMPH NODES: No significant adenopathy. AORTA and ARTERIES: No significant abnormality. IVC and VEINS: No significant abnormality. URINARY BLADDER: No significant abnormality. REPRODUCTIVE ORGANS: No significant abnormality. ADDITIONAL FINDINGS: None. SKELETAL SYSTEM: No significant abnormality. IMPRESSION: 1. Moderate bilateral patchy airspace opacities with more consolidative opacities in the lower lobes. Differential considerations including multifocal pneumonia, inflammatory process, or aspiration. 2. No acute process identified within the abdomen or pelvis. Signer Name: Shannon Tanner MD Signed: 01/31/2021 8:53 AM Workstation Name: [id number] NONENHANCED CT SCAN OF THE HEAD: INDICATION / CLINICAL INFORMATION: 55 years Female; sepsis, pt nonverbal. TECHNIQUE: Routine CT head without contrast. All CT scans at this location are performed using CT dose reduction for ALARA by means of automated exposure control. COMPARISON: CT scan of the head from 11/19/2020 FINDINGS: BRAIN / INTRACRANIAL CONTENTS: No acute hemorrhage, mass effect, midline shift, hydrocephalus, or acute, large territorial infarct. Significant volume loss in the cerebellar hemispheres more medially and laterally; cerebellar tonsils are normal; brainstem normal; mammillary bodies normal; CT findings unchanged; cerebral hemispheres are normal; focal area of calcification at the level of foramen of [place] without obstruction of the ventricular system; Calcification in the choroid plexus Nonobstructive colloid cyst. No significant white matter abnormality. CRANIOCERVICAL JUNCTION: No significant abnormality. ORBITS: No significant abnormality of visualized orbits. SINUSES / MASTOIDS: No significant abnormality of the visualized paranasal sinuses or mastoid air cells. ADDITIONAL FINDINGS: None. IMPRESSION: No acute focal parenchymal lesion; CT remains unchanged since 11/19/2020 Signer Name: Landry Jenkins MD Signed: 01/31/2021 8:43 AM Workstation Name: [id number] - Medical Decision Making 55-year-old female with multiple chronic medical problems including being bedbound in a residential, dysphagia with a PEG tube, vascular dementia, diabetes with frequent DKA, CKD brought in by EMS from her nursing facility due to hypoglycemia. However she was found to be febrile and hypoxic with a saturation of 88% on room air. This improved on nonrebreather. Initial assessment here, the patient is tachycardic and in respiratory distress. 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 Full sepsis order set was initiated including labs and cultures. She will be given 30 mL/kg of IV fluids. She will be given broad-spectrum vancomycin, cefepime, and clindamycin. General surgery was paged. Of note, the patient's paperwork from her facility shows that she is DNR. At 9:10 AM, I spoke with Dr. Almonte of general surgery who requested that the patient be kept n.p.o. he will come in to assess the patient and bring her to the OR if necessary. On repeat assessment at 10 AM, the patient has improved her heart rate. She r emains in respiratory distress. Her mental status has declined slightly and she is only able to nod slightly in response to questions but is unclear whether she is comprehending what is being said. CT of the head is negative. CT of the chest/abdomen/pelvis reveals findings consistent with multifocal pneumonia and no acute findings in the abdomen and pelvis. At 10:45 AM, the nurse alerted me that the patient's blood pressure has dropped to 70 systolic. I have ordered initiation of a Levophed drip and will contact the patient's family/power of [place] attorney to discuss the situation. At 10:55 AM, I spoke over the phone with the patient's sister, Carlota Asif. She is listed as the primary contact on her paperwork. She also states that she is the healthcare proxy for the patient. After discussing the case and the current clinical condition of the patient which would require vasopressors and a central line, the patient's sister stated that she wants to make the patient comfort care only. She wants to continue the antibiotics and IVFs but does not want any other interventions or aggressive measures taken. She requests that the patient be put on Hospice. She confirmed that the patient is in fact DNR. This was witnessed by the RN, Linh as well as the charge nurse, Elinor and witnessed in front of Dr. Moore. Therefore I have stopped the Levophed drip and ordered morphine to decrease her shortness of breath and to treat her symptoms. The patient's labs have resulted and reveal several significant abnormalities including profoundly elevated lactate, hypokalemia, white blood cell count of 1.2. Given that the patient is on comfort care only we will not treat the symptoms but will instead treat her symptoms and admit her to the on-call hospitalist At 11:40 AM I spoke with Dr. Bennett, the on-call hospitalist who accepts the patient for admission and will assume care. He understands that she is comfort care only and on antibiotics and fluids only. Repeat evaluation at 12:30 PM, the patient is no longer moaning in pain and is resting comfortably in the hospital bed. Critical Care Time: Yes Critical care time in (mins) excluding proc time.: 60 Critical care attestation.: If time is entered above; I have spent that time in minutes in the direct care of this critically ill patient, excluding procedure time. Clinical care time was spent in the evaluation/assessment, work-up, and management of septic shock and pneumonia requiring initial initiation of vasopressors and IV fluids as well as broad-spectrum antibiotics. As well as consultation of multiple specialists for possible surgical indication. ED Disposition Clinical Impression: Septic shock, Hypokalemia, Acute hypoxemic respiratory failure, Metabolic acidosis, Leukopenia Disposition: OP ADMIT IP TO THIS HOSP Is pt being admited?: Yes Condition: Critical
--- NOTE | 2021-01-31 09:48 | Cat Scan Report ---
. NONENHANCED CT SCAN OF THE HEAD: INDICATION / CLINICAL INFORMATION: 55 years Female; sepsis, pt nonverbal. TECHNIQUE: Routine CT head without contrast. All CT scans at this location are performed using CT dos e reduction for ALARA by means of automated exposure control. COMPARISON: CT scan of the head from 11/19/2020 FINDINGS: BRAIN / INTRACRANIAL CONTENTS: No acute hemorrhage, mass effect, midline shift, hydrocephalus, or acu te, large territorial infarct. Significant volume loss in the cerebellar hemispheres more medially an d laterally; cerebellar tonsils are normal; brainstem normal; mammillary bodies normal; CT findings u nchanged; cerebral hemispheres are normal; focal area of calcification at the level of foramen of Mon ro without obstruction of the ventricular system; Calcification in the choroid plexus Nonobstructive colloid cyst. No significant white matter abnormality. CRANIOCERVICAL JUNCTION: No significant abnormality. ORBITS: No significant abnormality of visualized orbits. SINUSES / MASTOIDS: No significant abnormality of the visualized paranasal sinuses or mastoid air merlyn ls. ADDITIONAL FINDINGS: None. IMPRESSION: No acute focal parenchymal lesion; CT remains unchanged since 11/19/2020 Signer Name: Landry Jenkins MD Signed: 01/31/2021 9:43 AM Workstation Name: [id number]
--- NOTE | 2021-01-31 09:52 | XRay Report ---
CHEST 1 VIEW 0943 INDICATION / CLINICAL INFORMATION: sepsis COMPARISON: 01/07/2021 FINDINGS: SUPPORT DEVICES: None HEART / MEDIASTINUM: Stable LUNGS / PLEURA: Chronic changes are again noted. Mild diffuse increase in interstitial markings are s lightly more prominent and may indicate mild diffuse edema. Patchy possible pneumonic infiltrate is n oted and appears more prominent in the left midlung. No dense areas of consolidation are seen. No pne umothorax. ADDITIONAL FINDINGS: No significant additional findings. Signer Name: Sung Quiros MD Signed: 01/31/2021 9:47 AM Workstation Name: [id number]
--- NOTE | 2021-01-31 09:58 | Cat Scan Report ---
CT CHEST, ABDOMEN, AND PELVIS WITHOUT CONTRAST INDICATION / CLINICAL INFORMATION: sepsis. TECHNIQUE: Axial CT images were obtained through the chest, abdomen, and pelvis without contrast. All CT scans a t this location are performed using CT dose reduction for ALARA by means of automated exposure contro l. COMPARISON: CT abdomen pelvis 11/16/2020 and CTA chest 02/26/2020 FINDINGS: HEART: No significant abnormality. THORACIC AORTA: No significant abnormality. MEDIASTINUM and SARINA: No significant abnormality. LUNGS: There are moderate bilateral patchy airspace opacities with a dependent and lower lung zone pr edominance, with more focal consolidative opacities in the dependent lower lobes. PLEURA: No significant pleural effusion. No pneumothorax. ADDITIONAL CHEST FINDINGS: None. LIVER: No significant abnormality. GALLBLADDER: No significant abnormality. BILE DUCTS: No significant abnormality. PANCREAS: No significant abnormality. SPLEEN: No significant abnormality. ADRENALS: No significant abnormality. RIGHT KIDNEY and URETER: There is an unchanged nonobstructive 5 mm stone in the right lower pole. LEFT KIDNEY and URETER: Small left upper pole cyst. STOMACH and SMALL BOWEL: A gastrostomy tube is in place. No significant abnormality. COLON: Large amount of stool throughout the colon. APPENDIX: No significant abnormality. PERITONEUM: No free fluid. No free air. No fluid collection. LYMPH NODES: No significant adenopathy. AORTA and ARTERIES: No significant abnormality. IVC and VEINS: No significant abnormality. URINARY BLADDER: No significant abnormality. REPRODUCTIVE ORGANS: No significant abnormality. ADDITIONAL FINDINGS: None. SKELETAL SYSTEM: No significant abnormality. IMPRESSION: 1. Moderate bilateral patchy airspace opacities with more consolidative opacities in the lower lobes. Differential considerations including multifocal pneumonia, inflammatory process, or aspiration. 2. No acute process identified within the abdomen or pelvis. Signer Name: Shannon Tanner MD Signed: 01/31/2021 9:53 AM Workstation Name: [id number]
[2021-01-31] MEDS ORDERED: VANCOMYCIN 1,250 MG in SODIUM CHLORIDE 0.9% 500 ML 500 ML IV ONE (10:00)
[2021-01-31] MEDS ORDERED: VANCOMYCIN 1,250 MG in SODIUM CHLORIDE 0.9% 250ML 250 ML IV ONE (10:00)
[2021-01-31 10:32] LABS: Mean Corpuscular HGB Conc 33 % (30-34)
[2021-01-31 10:38] LABS: Hemoglobin 11.2 gm/dl (10.1-14.3); Mean Corpuscular Volume 99 fl (79-97); Platelet Count 293 K/mm3 (140-440); Red Blood Count 3.43 M/mm3 (3.65-5.03)
[2021-01-31 10:42] LABS: Alanine Aminotransferase 17 units/L (7-56); Albumin 3.3 g/dL (3.9-5); BUN/Creatinine Ratio 24; Blood Urea Nitrogen 22 mg/dL (7-17); Calcium 9.3 mg/dL (8.4-10.2); Hemolysis Index 4
[2021-01-31 10:50] LABS: INR 1.47 (0.87-1.13); Partial Thromboplastin Time 25.1 Sec. (24.2-36.6)
[2021-01-31] MEDS ORDERED: MORPHINE 10 MG/1 ML INJ IV ONE (10:58)
[2021-01-31] MEDS ORDERED: MORPHINE 2 MG/1 ML INJ IV ONE (12:00)
[2021-01-31 13:09] LABS: Erythrocyte Sedimentation Rate 40 mm/Hr (0-20)
[2021-01-31 14:42] LABS: Band Neutrophils # (Manual) 0.2 K/mm3; Total Cells Counted 100
[2021-01-31 14:43] LABS: Hypochromasia Few; Platelet Estimate Consistent w Auto
[2021-01-31] MEDS ORDERED: MORPHINE 10 MG/1 ML INJ IV NR (15:53)
[2021-01-31] MEDS ORDERED: MORPHINE 4 MG/1 ML INJ ONE (15:58)
[2021-01-31] MEDS ORDERED: MORPHINE 2 MG/1 ML INJ ONE (15:58)
[2021-01-31] MEDS: MORPHINE 2 MG/1 ML INJ IV ONE ×2 (16:09→18:31)
[2021-01-31] MEDS: MORPHINE 4 MG/1 ML INJ IV ONE ×2 (16:10→18:32)
--- NOTE | 2021-01-31 21:38 | History and Physical Report ---
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 Patient was 88% on room air which was corrected with oxygen supplementation. Patient has severe dysarthria and plan to use only few words. Patient also with slightly altered mental status and is lethargic. Very poor historian. - Past Medical History --Diabetes: Yes --Renal Disease: Yes (Had UTI and sepsis-->DKA on admission. RACH/ATN) --Psychiatric Treatment: (anxiety) --Dementia: Yes Additional medical history: COVID +, history of Falling --Past surgical history PEG tube placement - Social History Smoking Status: Unknown if ever smoked --Family history Diabetes: Review of Systems ROS: Altered sensorium and fever and hypoxia Constitutional no weight loss or weight gain no fever or chills HEENT no sore throat no post nasal drip no diplopia Neck no neck stiffness no lymph gland enlargement Chest and lungs no shortness of breath cough or wheezing CVS no chest pain no diaphoresis no palpitations GI no nausea no vomiting no diarrhea Genitourinary system no dysuria no flank pain Musculoskeletal system no muscle pains no joint pains POOL HAND no syncope no seizures Skin no rash no itching Psychiatric no depression no homicidal or suicidal tendencies Hematologic no lymphedema or bruising Endocrine no polydipsia no polyuria no cold intolerance no heat intolerance Medications and Allergies Allergies Allergy/AdvReac Type Severity Reaction Status Date / Time No Known Allergies Allergy Verified 02/26/20 10:24 Home Medications Medication Instructions Recorded Confirmed Last Taken Type Citalopram [Celexa] 20 mg PO QDAY 01/25/20 01/07/21 Unknown History Pravastatin [Pravachol] 40 mg PO QHS 01/25/20 01/07/21 Unknown History Acetaminophen [Mapap] 650 mg PO BID PRN 02/26/20 01/07/21 Unknown History Ascorbic Acid [Vitamin C with Chetna 500 mg PO DAILY 02/26/20 01/07/21 Unknown History Hips] Glimepiride [Amaryl] 4 mg PO QAM 02/26/20 01/07/21 Unknown History Insulin Lispro [Humalog] 5 units SQ AC 02/26/20 01/07/21 Unknown History Multivit-Min/Ferrous Fumarate 15 mg PO DAILY 02/26/20 01/07/21 Unknown History [Multivitamin with Minerals Tab] Apixaban [Eliquis] 2.5 mg PO BID #30 tablet 03/01/20 01/07/21 Unknown Rx Famotidine [Pepcid] 20 mg PO QDAY #30 tablet 11/26/20 01/07/21 Unknown Rx Insulin Glargine [Lantus VIAL] 30 units SUB-Q QHS #10 units 11/26/20 01/07/21 Unknown Rx Lipase/Protease/Amylase [Pancreaze 1 each FEEDTUBE PRN PRN capsule 11/26/20 01/07/21 Unknown Rx 10,500 Unit] Insulin Regular, Human [HumuLIN R] 0 units SUB-Q Q6HR units 01/10/21 Unknown Rx Simple Syrup 15 ml FEEDTUBE PRN PRN oral.liqd 01/10/21 Unknown Rx Simple Syrup 30 ml FEEDTUBE PRN PRN oral.liqd 01/10/21 Unknown Rx Sodium Bicarbonate 325 mg FEEDTUBE PRN PRN tablet 01/10/21 Unknown Rx levoFLOXacin [Levaquin] 750 mg PO QDAY #10 tablet 01/10/21 Unknown Rx Exam - Constitutional Vitals: Temp Pulse Resp BP Pulse Ox 102.6 F H 120 H 11 L 64/35 95 01/31/21 08:45 01/31/21 21:00 01/31/21 21:00 01/31/21 21:00 01/31/21 21:00 General appearance: Present: no acute distress, well-nourished - EENT Eyes: Present: PERRL ENT: hearing intact, clear oral mucosa - Neck Neck: Present: supple, normal ROM - Respiratory Respiratory effort: normal Respiratory: bilateral: CTA - Cardiovascular Heart rate: 78 Rhythm: regular Heart Sounds: Present: S1 & S2. Absent: rub, click - Extremities Extremities: pulses symmetrical, No edema Peripheral Pulses: within normal limits - Abdominal General gastrointestinal: Present: soft, non-tender, non-distended, normal bowel sounds Female genitourinary: Present: normal - Integumentary Integumentary: Present: clear, warm, dry - Musculoskeletal Musculoskeletal: generalized weakness - Psychiatric Psychiatric: other (Lethargic) - Neurologic Neurologic: CNII-XII intact, moves all extremities, other (Patient is lethargic and decreased sensorium) - Allied Health Allied health notes reviewed: nursing, case management HEART Score - HEART Score Troponin: Troponin T < 0.010 ng/mL (0.00-0.029) 01/31/21 09:58 Results - Labs CBC & Chem 7: 01/31/21 09:58 01/31/21 09:58 Labs: Laboratory Last Values WBC 1.6 K/mm3 (4.5-11.0) L* 01/31/21 09:58 RBC 3.43 M/mm3 (3.65-5.03) L 01/31/21 09:58 Hgb 11.2 gm/dl (10.1-14.3) 01/31/21 09:58 Hct 34.0 % (30.3-42.9) 01/31/21 09:58 MCV 99 fl (79-97) H 01/31/21 09:58 MCH 33 pg (28-32) H 01/31/21 09:58 MCHC 33 % (30-34) 01/31/21 09:58 RDW 14.0 % (13.2-15.2) 01/31/21 09:58 Plt Count 293 K/mm3 (140-440) 01/31/21 09:58 Add Manual Diff Complete 01/31/21 09:58 Total Counted 100 01/31/21 09:58 Seg Neuts % (Manual) 46.0 % (40.0-70.0) 01/31/21 09:58 Band Neutrophils % 14.0 % 01/31/21 09:58 Lymphocytes % (Manual) 34.0 % (13.4-35.0) 01/31/21 09:58 Reactive Lymphs % (Man) 1.0 % 01/31/21 09:58 Monocytes % (Manual) 5.0 % (0.0-7.3) 01/31/21 09:58 Nucleated RBC % Not Reportable 01/31/21 09:58 Seg Neutrophils # Man 0.7 K/mm3 (1.8-7.7) L 01/31/21 09:58 Band Neutrophils # 0.2 K/mm3 01/31/21 09:58 Lymphocytes # (Manual) 0.5 K/mm3 (1.2-5.4) L 01/31/21 09:58 Abs React Lymphs (Man) 0.0 K/mm3 01/31/21 09:58 Monocytes # (Manual) 0.1 K/mm3 (0.0-0.8) 01/31/21 09:58 Eosinophils # (Manual) 0.0 K/mm3 (0.0-0.4) 01/31/21 09:58 Basophils # (Manual) 0.0 K/mm3 (0.0-0.1) 01/31/21 09:58 Metamyelocytes # 0.0 K/mm3 01/31/21 09:58 Myelocytes # 0.0 K/mm3 01/31/21 09:58 Promyelocytes # 0.0 K/mm3 01/31/21 09:58 Blast Cells # 0.0 K/mm3 01/31/21 09:58 WBC Morphology Not Reportable 01/31/21 09:58 Hypersegmented Neuts Not Reportable 01/31/21 09:58 Hyposegmented Neuts Not Reportable 01/31/21 09:58 Hypogranular Neuts Not Reportable 01/31/21 09:58 Smudge Cells Not Reportable 01/31/21 09:58 Toxic Granulation Not Reportable 01/31/21 09:58 Toxic Vacuolation Not Reportable 01/31/21 09:58 Dohle Bodies Not Reportable 01/31/21 09:58 Pelger-Huet Anomaly Not Reportable 01/31/21 09:58 Jamia Rods Not Reportable 01/31/21 09:58 Platelet Estimate Consistent w auto 01/31/21 09:58 Clumped Platelets Not Reportable 01/31/21 09:58 Plt Clumps, EDTA Not Reportable 01/31/21 09:58 Large Platelets Not Reportable 01/31/21 09:58 Giant Platelets Not Reportable 01/31/21 09:58 Platelet Satelliting Not Reportable 01/31/21 09:58 Plt Morphology Comment Not Reportable 01/31/21 09:58 RBC Morphology Not Reportable 01/31/21 09:58 Dimorphic RBCs Not Reportable 01/31/21 09:58 Polychromasia Not Reportable 01/31/21 09:58 Hypochromasia Few 01/31/21 09:58 Poikilocytosis Not Reportable 01/31/21 09:58 Anisocytosis Not Reportable 01/31/21 09:58 Microcytosis Not Reportable 01/31/21 09:58 Macrocytosis Not Reportable 01/31/21 09:58 Spherocytes Not Reportable 01/31/21 09:58 Pappenheimer Bodies Not Reportable 01/31/21 09:58 Sickle Cells Not Reportable 01/31/21 09:58 Target Cells Not Reportable 01/31/21 09:58 Tear Drop Cells Not Reportable 01/31/21 09:58 Ovalocytes Not Reportable 01/31/21 09:58 Helmet Cells Not Reportable 01/31/21 09:58 Galvan-[place]keene Bodies Not Reportable 01/31/21 09:58 Bridger Rings Not Reportable 01/31/21 09:58 Luis Cells Not Reportable 01/31/21 09:58 Bite Cells Not Reportable 01/31/21 09:58 Crenated Cell Not Reportable 01/31/21 09:58 Elliptocytes Not Reportable 01/31/21 09:58 Acanthocytes (Spur) Not Reportable 01/31/21 09:58 Rouleaux Not Reportable 01/31/21 09:58 Hemoglobin C Crystals Not Reportable 01/31/21 09:58 Schistocytes Not Reportable 01/31/21 09:58 Malaria parasites Not Reportable 01/31/21 09:58 ESR 40 mm/Hr (0-20) 01/31/21 09:58 Felice Bodies Not Reportable 01/31/21 09:58 Hem Pathologist Commnt No 01/31/21 09:58 PT 18.3 Sec. (12.2-14.9) H 01/31/21 09:58 INR 1.47 (0.87-1.13) H 01/31/21 09:58 APTT 25.1 Sec. (24.2-36.6) 01/31/21 09:58 Sodium 138 mmol/L (137-145) 01/31/21 09:58 Potassium 2.4 mmol/L (3.6-5.0) L* 01/31/21 09:58 Chloride 103.0 mmol/L (98-107) 01/31/21 09:58 Carbon Dioxide 14 mmol/L (22-30) L 01/31/21 09:58 Anion Gap 24 mmol/L 01/31/21 09:58 BUN 22 mg/dL (7-17) H 01/31/21 09:58 Creatinine 0.9 mg/dL (0.6-1.2) 01/31/21 09:58 Estimated GFR > 60 ml/min 01/31/21 09:58 BUN/Creatinine Ratio 24 % 01/31/21 09:58 Glucose 132 mg/dL (65-100) H 01/31/21 09:58 POC Glucose 237 mg/dL (70-105) H 01/31/21 09:00 Lactic Acid 6.80 mmol/L (0.7-2.0) H* 01/31/21 09:58 Calcium 9.3 mg/dL (8.4-10.2) 01/31/21 09:58 Magnesium 1.80 mg/dL (1.7-2.3) 01/31/21 09:58 Total Bilirubin < 0.20 mg/dL (0.1-1.2) 01/31/21 09:58 AST 23 units/L (5-40) 01/31/21 09:58 ALT 17 units/L (7-56) 01/31/21 09:58 Alkaline Phosphatase 127 units/L (35-129) 01/31/21 09:58 Troponin T < 0.010 ng/mL (0.00-0.029) 01/31/21 09:58 C-Reactive Protein 2.50 mg/dL (0.00-1.30) H 01/31/21 09:58 NT-Pro-B Natriuret Pep 1763 pg/mL (0-900) H 01/31/21 09:58 Total Protein 6.2 g/dL (6.3-8.2) L 01/31/21 09:58 Albumin 3.3 g/dL (3.9-5) L 01/31/21 09:58 Albumin/Globulin Ratio 1.1 % 01/31/21 09:58 Lipase 13 units/L (13-60) 01/31/21 09:58 Short CBC 01/31/21 Range/Units 09:58 WBC 1.6 L* (4.5-11.0) K/mm3 Hgb 11.2 (10.1-14.3) gm/dl Hct 34.0 (30.3-42.9) % Plt Count 293 (140-440) K/mm3 BMP 01/31/21 09:58 Sodium 138 Potassium 2.4 L* Chloride 103.0 Carbon Dioxide 14 L BUN 22 H Creatinine 0.9 Glucose 132 H Calcium 9.3 Cardiac Enzymes 01/31/21 Range/Units 09:58 Troponin T < 0.010 (0.00-0.029) ng/mL Liver Function 01/31/21 Range/Units 09:58 Total Bilirubin < 0.20 (0.1-1.2) mg/dL AST 23 (5-40) units/L ALT 17 (7-56) units/L Alkaline Phosphatase 127 (35-129) units/L Albumin 3.3 L (3.9-5) g/dL Urine 02/01/21 Range/Units 04:19 Urine Color Yellow (Yellow) Urine pH 5.0 (5.0-7.0) Ur Specific [place] 1.016 (1.003-1.030) Urine Protein 100 mg/dl (Negative) mg/dL Urine Glucose (UA) >=500 (Negative) mg/dL Microbiology: Microbiology 01/31/21 09:58 Peripheral/Venous Blood Culture - Preliminary Culture in Progress 01/31/21 09:58 Peripheral/Venous Blood Culture - Preliminary Culture in Progress - Imaging and Cardiology Chest x-ray: report reviewed CT scan - abdomen: report reviewed CT scan - chest: report reviewed CT Scan - head: report reviewed Imaging and Cardiology: Chest x-ray No significant findings except for mild diffuse increase in interstitial markings which may indicate mild diffuse edema Patchy possible pneumonic infiltrate is noted and appears more prominent in the left midlung. No dense areas of consolidation are seen. No pneumothorax. CT of the abdomen Moderate bilateral patchy airspace of opacities with more consolidative opacities in the lower lobes. Differential considerations include multifocal pneumonia inflammatory process or aspiration. No other acute process identified within the abdomen or pelvis. Chest CT Moderate bilateral patchy airspace opacities Head CT No acute focal parenchymal lesions Assessment and Plan Advance Directives: Yes (DNR) VTE prophylaxis?: Mechanical Plan of care discussed with patient/family: Yes - Patient Problems (1) Sepsis with hypotension Current Visit: Yes Status: Acute Plan to address problem: IV fluids IV antibiotics-cefepime and vancomycin No pressors Family is agreed for DNR and comfort care (2) Acute encephalopathy Current Visit: No Status: Acute Plan to address problem: Secondary to sepsis (3) Acute hypoxemic respiratory failure Current Visit: Yes Status: Acute Plan to address problem: Oxygen supplementation as necessary Bilateral pneumonia Sepsis (4) Leukopenia Current Visit: Yes Status: Acute Plan to address problem: Possibly secondary to sepsis (5) Hypokalemia Current Visit: Yes Status: Acute Plan to address problem: IV potassium and potassium via PEG tube given Recheck potassium levels (6) Bilateral pneumonia Current Visit: Yes Status: Acute Qualifiers: Pneumonia type: aspiration pneumonia Plan to address problem: Possible aspiration pneumonia IV cefepime and IV vancomycin Rule out Covid virus infection (7) Malnutrition Current Visit: Yes Status: Chronic Qualifiers: Protein-calorie malnutrition severity: moderate Plan to address problem: Albumin of 3.3 Dietitian consult requested (8) Dysphagia Current Visit: No Status: Chronic Qualifiers: Dysphagia type: oropharyngeal phase Qualified Code(s): R13.12 - Dysphagia, oropharyngeal phase Plan to address problem: Patient is a PEG tube PEG tube feedings as per dietitian (9) DVT prophylaxis Current Visit: Yes Status: Acute Plan to address problem: On heparin and GI prophylaxis (10) Discharge planning issues Current Visit: Yes Status: Acute Plan to address problem: Patient is DNR and family wants only comfort measures and IV antibiotics No aggressive measures like pressors and intubation and CPR
[2021-01-31 22:24] LABS: C-Reactive Protein 19.3 mg/dL (0.00-1.30)
[2021-01-31] MEDS ORDERED: ACETAMINOPHEN 325 MG TAB PO PRN (23:19)
[2021-01-31] MEDS ORDERED: SODIUM BICARBONATE 325 MG TAB FEEDTUBE PRN (23:19)
[2021-01-31] MEDS ORDERED: LIPASE 10,500/PROTEASE 25,000/AMYLASE 43,750 (UNITS) DR CAP FEEDTUBE PRN (23:19)
[2021-01-31] MEDS ORDERED: SIMPLE SYRUP 15 ML FEEDTUBE PRN (23:19)
[2021-01-31] MEDS ORDERED: ONDANSETRON 4 MG/2 ML INJ IV PRN (23:21)
[2021-01-31] MEDS ORDERED: MORPHINE 2 MG/1 ML INJ IV PRN (23:21)
[2021-01-31] MEDS ORDERED: HYDROmorphone 1 MG/1 ML INJ IV PRN (23:21)
[2021-01-31] MEDS ORDERED: NON-FORMULARY EACH (Apixaban 2.5 MG Tablet) PO SCH (23:30)
[2021-01-31] MEDS ORDERED: SODIUM CHLORIDE 0.9% 1000 ML 1,000 ML IV SCH (23:30)
[2021-01-31] MEDS ORDERED: POTASSIUM CHLORIDE ER 20 MEQ TAB PO ONE (23:34)
[2021-02-01] MEDS: CEFEPIME/NS 2 GM/100 ML 2 GM/100 ML BAG IV SCH ×4 (00:20→22:44)
[2021-02-01] MEDS: APIXABAN 2.5 MG TAB PO SCH ×3 (00:21→22:44)
[2021-02-01] MEDS: INSULIN LISPRO 100 UNIT/ML SUB-Q SCH ×7 (00:22→22:45)
[2021-02-01] MEDS: POTASSIUM CHLORIDE 10 MEQ 10 MEQ/100 ML BAG IV SCH ×4 (01:40→11:30)
[2021-02-01 04:44] LABS: Amorphous Crystals,Urine 1+; Bacteria,Urine 1+ /HPF (Negative); Bilirubin,Urine NEG (Negative); Blood,Urine MOD (Negative); Color,Urine Yellow (Yellow); Urobilinogen,Urine < 2.0 mg/dL (<2.0)
[2021-02-01] MEDS ORDERED: LIPASE 10,500/PROTEASE 25,000/AMYLASE 43,750 (UNITS) DR CAP FEEDTUBE PRN (07:14)
[2021-02-01] MEDS ORDERED: SODIUM BICARBONATE 325 MG TAB FEEDTUBE PRN (07:14)
[2021-02-01] MEDS ORDERED: SIMPLE SYRUP 15 ML FEEDTUBE PRN (07:14)
[2021-02-01 09:09] LABS: Alanine Aminotransferase 37 units/L (7-56); Albumin 2.7 g/dL (3.9-5); BUN/Creatinine Ratio 23; Blood Urea Nitrogen 36 mg/dL (7-17); Calcium 8.7 mg/dL (8.4-10.2); Hemolysis Index 4
[2021-02-01 09:27] LABS: Basophils % (Auto) 0.2 % (0.0-1.8); Eosinophils % (Auto) 0.4 % (0.0-4.3); Hematocrit 25.7 % (30.3-42.9); Hemoglobin 8.5 gm/dl (10.1-14.3); Lymphocytes # (Auto) 0.6 K/mm3 (1.2-5.4); Lymphocytes % (Auto) 6.6 % (13.4-35.0); Mean Corpuscular HGB Conc 33 % (30-34); Mean Corpuscular Volume 99 fl (79-97); Monocytes # (Auto) 0.4 K/mm3 (0.0-0.8); Monocytes % (Auto) 4.9 % (0.0-7.3); Platelet Count 201 K/mm3 (140-440); Red Blood Count 2.58 M/mm3 (3.65-5.03); Red Cell Distribution Width 14.3 % (13.2-15.2)
[2021-02-01] MEDS ORDERED: FAMOTIDINE 20 MG TAB PO SCH (10:00)
--- NOTE | 2021-02-01 11:41 | Consultation ---
History of Present Illness - Reason for Consult Consult date: 02/01/21 acute renal failure - History of Present Illness The patient is a 55 YO female with history significant for DM, HLD, Vascular Dementia, Debility, Dysphagia, s/p PEG tube and CKD who presented to [facility] ED 01/31/21 from her fdc with initial complaint being hyperglycemia. Pt is nonverbal and unable to provide any history. Apparently her glucose was in the 400s. However, her initial temp was 102.6 F. She was apparently satting 88% on room air which corrected with nonrebreather. CT chest showed bilateral consoli dation. Patient was admitted to for further evaluation and treatment. Labs significant for Creatinine of 1.6, Lactate 6.8 and BUN 36. Nephrology was consulted for further evaluation and treatment of RACH. Past History Past Medical History: other (See HPI.) Medications and Allergies Allergies Allergy/AdvReac Type Severity Reaction Status Date / Time No Known Allergies Allergy Verified 02/26/20 10:24 Home Medications Medication Instructions Recorded Confirmed Last Taken Type Citalopram [Celexa] 20 mg PO QDAY 01/25/20 02/01/21 Unknown History Pravastatin [Pravachol] 40 mg PO QHS 01/25/20 02/01/21 Unknown History Acetaminophen [Mapap] 650 mg PO BID PRN 02/26/20 02/01/21 Unknown History Ascorbic Acid [Vitamin C with Chetna 500 mg PO DAILY 02/26/20 02/01/21 Unknown History Hips] Glimepiride [Amaryl] 4 mg PO QAM 02/26/20 02/01/21 Unknown History Insulin Lispro [Humalog] 5 units SQ AC 02/26/20 02/01/21 Unknown History Multivit-Min/Ferrous Fumarate 15 mg PO DAILY 02/26/20 02/01/21 Unknown History [Multivitamin with Minerals Tab] Apixaban [Eliquis] 2.5 mg PO BID #30 tablet 03/01/20 02/01/21 Unknown Rx Famotidine [Pepcid] 20 mg PO QDAY #30 tablet 11/26/20 02/01/21 Unknown Rx Insulin Glargine [Lantus VIAL] 30 units SUB-Q QHS #10 units 11/26/20 02/01/21 Unknown Rx Lipase/Protease/Amylase [Pancreaze 1 each FEEDTUBE PRN PRN capsule 05/11/21 07/17/21 Unknown Rx 10,500 Unit] Insulin Regular, Human [HumuLIN R] 0 units SUB-Q Q6HR units 01/10/21 02/01/21 Unknown Rx Simple Syrup 15 ml FEEDTUBE PRN PRN oral.liqd 01/10/21 02/01/21 Unknown Rx Simple Syrup 30 ml FEEDTUBE PRN PRN oral.liqd 01/10/21 02/01/21 Unknown Rx Sodium Bicarbonate 325 mg FEEDTUBE PRN PRN tablet 01/10/21 02/01/21 Unknown Rx levoFLOXacin [Levaquin] 750 mg PO QDAY #10 tablet 01/10/21 02/01/21 Unknown Rx Active Meds: Active Medications Acetaminophen (Acetaminophen 325 Mg Tab) 650 mg PO Q4H PRN PRN Reason: Pain MILD(1-3)/Fever >100.5/RIVERA Lipase/Protease/Amylase (Lipase 10,500/Protease 25,000/Amylase 43,750 (Units) Dr Braun) 1 each FEEDTUBE PRN PRN PRN Reason: For Clogged Feeding Tube Apixaban (Apixaban 2.5 Mg Tab) 2.5 mg PO BID SHAHLA Last Admin: 02/01/21 00:21 Dose: 2.5 mg Documented by: Ascorbic Acid (Ascorbic Acid 500 Mg Tab) 500 mg PO DAILY SHAHLA Citalopram Hydrobromide (Citalopram 20 Mg Tab) 20 mg PO QDAY SHAHLA Famotidine (Famotidine 20 Mg/2 Ml Inj) 20 mg IV BID SHAHLA Hydromorphone HCl (Hydromorphone 1 Mg/1 Ml Inj) 0.5 mg IV Q3H PRN PRN Reason: Pain , Severe (7-10) Sodium Chloride (Nacl 0.9% 1000 Ml) 1,000 mls @ 75 mls/hr IV DIRECT SHAHLA Last Admin: 02/01/21 00:22 Dose: 75 mls/hr Documented by: Cefepime HCl (Cefepime/Ns 2 Gm/100 Ml) 2 gm in 100 mls @ 200 mls/hr IV Q12HR SHAHLA; Protocol Stop: 02/07/21 09:59 Insulin Human Lispro (Insulin Lispro 100 Unit/Ml) 0 unit SUB-Q Q4HR SHAHLA; Pr otocol Last Admin: 02/01/21 06:19 Dose: 3 unit Documented by: Morphine Sulfate (Morphine 2 Mg/1 Ml Inj) 2 mg IV Q4H PRN PRN Reason: Pain, Moderate (4-6) Ondansetron HCl (Ondansetron 4 Mg/2 Ml Inj) 4 mg IV Q8H PRN PRN Reason: Nausea And Vomiting Simple Syrup (Simple Syrup 15 Ml) 15 ml FEEDTUBE PRN PRN PRN Reason: Hypoglycemia Simple Syrup (Simple Syrup 15 Ml) 30 ml FEEDTUBE PRN PRN PRN Reason: Hypoglycemia Sodium Bicarbonate (Sodium Bicarbonate 325 Mg Tab) 325 mg FEEDTUBE PRN PRN PRN Reason: For Clogged Feeding Tube Sodium Chloride (Sodium Chloride 0.9% 10 Ml Flush Syringe) 10 ml IV BID SHAHLA Sodium Chloride (Sodium Chloride 0.9% 10 Ml Flush Syringe) 10 ml IV PRN PRN PRN Reason: LINE FLUSH Review of Systems ROS unobtainable: due to mental status Exam - Vital Signs Vital signs: Vital Signs Pulse Resp BP Pulse Ox 129 H 26 H 142/64 97 01/31/21 08:41 01/31/21 08:41 01/31/21 08:41 01/31/21 08:41 Results - Lab Results 02/01/21 08:10 02/01/21 08:10 Most recent lab results Calcium 8.7 mg/dL (8.4-10.2) 02/01/21 08:10 Magnesium 1.80 mg/dL (1.7-2.3) 01/31/21 09:58 Assessment and Plan 1. Acute kidney injury: Vasomotor RACH superimposed on CKD in the setting of sepsis. ATN likely. CT abdomen negative for hydro. Urine studies ordered. Monitor renal function. Avoid nephrotoxic agents. Meds dosage based on GFR. 2. FEN: Anion-gap metabolic acidosis, 2/2 Lactic acidosis, monitor. Hypokalemia, improved, monitor. Monitor lytes and volume status. 3. Sepsis, POA: Likely 2/2 PNA. Covid test negative. Followed by ID. 4. Bilateral PNA, POA: Abx. Covid test negative. 5. DM: Monitor. 6. Dysphagia: Patient has PEG tube. 7. Anemia: Monitor. 8. HTN: Monitor BP. 9. Metabolic encephalopathy, POA. Subjective: Patient was seen and examined at the bedside. General Appearance: General appearance: appears stated age, not in distress, appears chronically ill HEENT: ATNC, CAITY Neck: Trachea midline Respiratory: coarse breath sounds Cardiology: regular, S1S2, no murmur Gastrointestinal: normoactive bowel sounds, not tender, not distended, PEG tube noted Integumentary: no rash, warm and dry Neurologic: lethargic, not following any command, non-verbal Ext: no edema
[2021-02-01] MEDS ORDERED: ALBUMIN HUMAN 25% (25 GM/100 ML) INJ IV ONE (12:00)
--- NOTE | 2021-02-01 12:19 | Progress Note ---
Assessment and Plan Assessment and plan: (1) Sepsis with hypotension Current Visit: Yes Status: Acute Plan to address problem: IV fluids IV antibiotics-cefepime and vancomycin No pressors Family is agreed for DNR and comfort care (2) Acute encephalopathy Current Visit: No Status: Acute Plan to address problem: Secondary to sepsis (3) Acute hypoxemic respiratory failure Current Visit: Yes Status: Acute Plan to address problem: Oxygen supplementation as necessary Bilateral pneumonia Sepsis (4) Leukopenia Current Visit: Yes Status: Acute Plan to address problem: Possibly secondary to sepsis (5) Hypokalemia Current Visit: Yes Status: Acute Plan to address problem: IV potassium and potassium via PEG tube given Recheck potassium levels (6) Bilateral pneumonia Current Visit: Yes Status: Acute Qualifiers: Pneumonia type: aspiration pneumonia Plan to address problem: Possible aspiration pneumonia IV cefepime and IV vancomycin Rule out Covid virus infection (7) Malnutrition Current Visit: Yes Status: Chronic Qualifiers: Protein-calorie malnutrition severity: moderate Plan to address problem: Albumin of 3.3 Dietitian consult requested (8) Dysphagia Current Visit: No Status: Chronic Qualifiers: Dysphagia type: oropharyngeal phase Qualified Code(s): R13.12 - Dysphagia, oropharyngeal phase Plan to address problem: Patient is a PEG tube PEG tube feedings as per dietitian (9) DVT prophylaxis Current Visit: Yes Status: Acute Plan to address problem: On heparin and GI prophylaxis (10) Discharge planning issues Current Visit: Yes Status: Acute Plan to address problem: Patient is DNR and family wants only comfort measures and IV antibiotics No aggressive measures like pressors and intubation and CPR 02/01/21 Patient with acute resp failure, bilateral pneumonia, encephalopathy. To r/o Covid- 19 infection. Continue iv Antibiotics. ID Physician consulted. Resume tube feeds Patient has DNR code status. Consulted Nephrology for RACH with Cr 1.6 History Interval history: Patient sent in for Fever and low oxygen saturations in the alf Altered mental status Hospitalist Physical - Physical exam Narrative exam: Gen: Lethargic, not in acute distress HEENT: Normocephalic, atraumatic Lungs:Clear to auscultation, no wheeze Heart:S1 and S2 reg, no murmurs, Abd:soft, NT, ND, PEG tube, normal BS Ext: no edema,no cycanosis Neuro:Lethargic,altered mental status - Constitutional Vitals: Temp Pulse Resp BP Pulse Ox 99.8 F H 130 H 22 82/45 91 01/31/21 23:46 01/31/21 23:46 01/31/21 23:46 01/31/21 23:46 01/31/21 23:46 General appearance: Present: no acute distress HEART Score - HEART Score Troponin: Troponin T < 0.010 ng/mL (0.00-0.029) 01/31/21 09:58 Results - Labs CBC & Chem 7: 02/01/21 08:10 02/01/21 08:10 Labs: Laboratory Last Values WBC 8.8 K/mm3 (4.5-11.0) 02/01/21 08:10 RBC 2.58 M/mm3 (3.65-5.03) L 02/01/21 08:10 Hgb 8.5 gm/dl (10.1-14.3) L 02/01/21 08:10 Hct 25.7 % (30.3-42.9) L D 02/01/21 08:10 MCV 99 fl (79-97) H 02/01/21 08:10 MCH 33 pg (28-32) H 02/01/21 08:10 MCHC 33 % (30-34) 02/01/21 08:10 RDW 14.3 % (13.2-15.2) 02/01/21 08:10 Plt Count 201 K/mm3 (140-440) 02/01/21 08:10 Lymph % (Auto) 6.6 % (13.4-35.0) L 02/01/21 08:10 [place] % (Auto) 4.9 % (0.0-7.3) 02/01/21 08:10 Eos % (Auto) 0.4 % (0.0-4.3) 02/01/21 08:10 Baso % (Auto) 0.2 % (0.0-1.8) 02/01/21 08:10 Lymph # (Auto) 0.6 K/mm3 (1.2-5.4) L 02/01/21 08:10 [place] # (Auto) 0.4 K/mm3 (0.0-0.8) 02/01/21 08:10 Eos # (Auto) 0.0 K/mm3 (0.0-0.4) 02/01/21 08:10 Baso # (Auto) 0.0 K/mm3 (0.0-0.1) 02/01/21 08:10 Add Manual Diff Complete 01/31/21 09:58 Total Counted 100 01/31/21 09:58 Seg Neutrophils % 87.9 % (40.0-70.0) H 02/01/21 08:10 Seg Neuts % (Manual) 46.0 % (40.0-70.0) 01/31/21 09:58 Band Neutrophils % 14.0 % 01/31/21 09:58 Lymphocytes % (Manual) 34.0 % (13.4-35.0) 01/31/21 09:58 Reactive Lymphs % (Man) 1.0 % 01/31/21 09:58 Monocytes % (Manual) 5.0 % (0.0-7.3) 01/31/21 09:58 Nucleated RBC % Not Reportable 01/31/21 09:58 Seg Neutrophils # 7.8 K/mm3 (1.8-7.7) H 02/01/21 08:10 Seg Neutrophils # Man 0.7 K/mm3 (1.8-7.7) L 01/31/21 09:58 Band Neutrophils # 0.2 K/mm3 01/31/21 09:58 Lymphocytes # (Manual) 0.5 K/mm3 (1.2-5.4) L 01/31/21 09:58 Abs React Lymphs (Man) 0.0 K/mm3 01/31/21 09:58 Monocytes # (Manual) 0.1 K/mm3 (0.0-0.8) 01/31/21 09:58 Eosinophils # (Manual) 0.0 K/mm3 (0.0-0.4) 01/31/21 09:58 Basophils # (Manual) 0.0 K/mm3 (0.0-0.1) 01/31/21 09:58 Metamyelocytes # 0.0 K/mm3 01/31/21 09:58 Myelocytes # 0.0 K/mm3 01/31/21 09:58 Promyelocytes # 0.0 K/mm3 01/31/21 09:58 Blast Cells # 0.0 K/mm3 01/31/21 09:58 WBC Morphology Not Reportable 01/31/21 09:58 Hypersegmented Neuts Not Reportable 01/31/21 09:58 Hyposegmented Neuts Not Reportable 01/31/21 09:58 Hypogranular Neuts Not Reportable 01/31/21 09:58 Smudge Cells Not Reportable 01/31/21 09:58 Toxic Granulation Not Reportable 01/31/21 09:58 Toxic Vacuolation Not Reportable 01/31/21 09:58 Dohle Bodies Not Reportable 01/31/21 09:58 Pelger-Huet Anomaly Not Reportable 01/31/21 09:58 Jamia Rods Not Reportable 01/31/21 09:58 Platelet Estimate Consistent w auto 01/31/21 09:58 Clumped Platelets Not Reportable 01/31/21 09:58 Plt Clumps, EDTA Not Reportable 01/31/21 09:58 Large Platelets Not Reportable 01/31/21 09:58 Giant Platelets Not Reportable 01/31/21 09:58 Platelet Satelliting Not Reportable 01/31/21 09:58 Plt Morphology Comment Not Reportable 01/31/21 09:58 RBC Morphology Not Reportable 01/31/21 09:58 Dimorphic RBCs Not Reportable 01/31/21 09:58 Polychromasia Not Reportable 01/31/21 09:58 Hypochromasia Few 01/31/21 09:58 Poikilocytosis Not Reportable 01/31/21 09:58 Anisocytosis Not Reportable 01/31/21 09:58 Microcytosis Not Reportable 01/31/21 09:58 Macrocytosis Not Reportable 01/31/21 09:58 Spherocytes Not Reportable 01/31/21 09:58 Pappenheimer Bodies Not Reportable 01/31/21 09:58 Sickle Cells Not Reportable 01/31/21 09:58 Target Cells Not Reportable 01/31/21 09:58 Tear Drop Cells Not Reportable 01/31/21 09:58 Ovalocytes Not Reportable 01/31/21 09:58 Helmet Cells Not Reportable 01/31/21 09:58 [place]-Green Bodies Not Reportable 01/31/21 09:58 [place] Rings Not Reportable 01/31/21 09:58 [place] Cells Not Reportable 01/31/21 09:58 Bite Cells Not Reportable 01/31/21 09:58 Crenated Cell Not Reportable 01/31/21 09:58 Elliptocytes Not Reportable 01/31/21 09:58 Acanthocytes (Spur) Not Reportable 01/31/21 09:58 Rouleaux Not Reportable 01/31/21 09:58 Hemoglobin C Crystals Not Reportable 01/31/21 09:58 Schistocytes Not Reportable 01/31/21 09:58 Malaria parasites Not Reportable 01/31/21 09:58 ESR 40 mm/Hr (0-20) 01/31/21 09:58 Felice Bodies Not Reportable 01/31/21 09:58 Hem Pathologist Commnt No 01/31/21 09:58 PT 18.3 Sec. (12.2-14.9) H 01/31/21 09:58 INR 1.47 (0.87-1.13) H 01/31/21 09:58 APTT 25.1 Sec. (24.2-36.6) 01/31/21 09:58 D-Dimer 1611.25 ng/mlDDU (0-234) H 01/31/21 21:37 Sodium 140 mmol/L (137-145) 02/01/21 08:10 Potassium 4.9 mmol/L (3.6-5.0) D 02/01/21 08:10 Chloride 110.2 mmol/L (98-107) H 02/01/21 08:10 Carbon Dioxide 15 mmol/L (22-30) L 02/01/21 08:10 Anion Gap 20 mmol/L 02/01/21 08:10 BUN 36 mg/dL (7-17) H 02/01/21 08:10 Creatinine 1.6 mg/dL (0.6-1.2) H D 02/01/21 08:10 Estimated GFR 33 ml/min 02/01/21 08:10 BUN/Creatinine Ratio 23 % 02/01/21 08:10 Glucose 122 mg/dL (65-100) H 02/01/21 08:10 POC Glucose 261 mg/dL (70-105) H 02/01/21 12:00 Hemoglobin A1c 8.7 % (4-6) H 02/01/21 08:10 Lactic Acid 6.80 mmol/L (0.7-2.0) H* 01/31/21 09:58 Calcium 8.7 mg/dL (8.4-10.2) 02/01/21 08:10 Magnesium 1.80 mg/dL (1.7-2.3) 01/31/21 09:58 Ferritin 573.6 ng/mL (10.0-200.0) H 01/31/21 21:37 Total Bilirubin < 0.20 mg/dL (0.1-1.2) 02/01/21 08:10 AST 127 units/L (5-40) H 02/01/21 08:10 ALT 37 units/L (7-56) 02/01/21 08:10 Alkaline Phosphatase 88 units/L (35-129) 02/01/21 08:10 Lactate Dehydrogenase 173 units/L (91-180) 01/31/21 21:37 Troponin T < 0.010 ng/mL (0.00-0.029) 01/31/21 09:58 C-Reactive Protein 19.30 mg/dL (0.00-1.30) H 01/31/21 21:37 NT-Pro-B Natriuret Pep 1763 pg/mL (0-900) H 01/31/21 09:58 Total Protein 5.4 g/dL (6.3-8.2) L 02/01/21 08:10 Albumin 2.7 g/dL (3.9-5) L 02/01/21 08:10 Albumin/Globulin Ratio 1.0 % 02/01/21 08:10 Lipase 13 units/L (13-60) 01/31/21 09:58 Procalcitonin 38.21 ng/mL (<0.15) 01/31/21 21:37 Urine Color Yellow (Yellow) 02/01/21 04:19 Urine Turbidity Cloudy (Clear) 02/01/21 04:19 Urine pH 5.0 (5.0-7.0) 02/01/21 04:19 Ur Specific [place] 1.016 (1.003-1.030) 02/01/21 04:19 Urine Protein 100 mg/dl mg/dL (Negative) 02/01/21 04:19 Urine Glucose (UA) >=500 mg/dL (Negative) 02/01/21 04:19 Urine Ketones 20 mg/dL (Negative) 02/01/21 04:19 Urine Blood Mod (Negative) 02/01/21 04:19 Urine Nitrite Neg (Negative) 02/01/21 04:19 Urine Bilirubin Neg (Negative) 02/01/21 04:19 Urine Urobilinogen < 2.0 mg/dL (<2.0) 02/01/21 04:19 Ur Leukocyte Esterase Neg (Negative) 02/01/21 04:19 Urine WBC (Auto) 14.0 /HPF (0.0-6.0) H 02/01/21 04:19 Urine RBC (Auto) 8.0 /HPF (0.0-6.0) 02/01/21 04:19 U Epithel Cells (Auto) 2.0 /HPF (0-13.0) 02/01/21 04:19 Urine Bacteria (Auto) 1+ /HPF (Negative) 02/01/21 04:19 Amorphous Crystals 1+ 02/01/21 04:19 Microbiology: Microbiology 01/31/21 09:58 Peripheral/Venous Blood Culture - Preliminary NO GROWTH AFTER 24 HOURS 01/31/21 09:58 Peripheral/Venous Blood Culture - Preliminary NO GROWTH AFTER 24 HOURS Verma/IV: Voiding Method Self-Catheterization Active Medications - Current Medications Current Medications: Generic Name Dose Route Start Last Admin Trade Name Freq PRN Reason Stop Dose Admin Acetaminophen 650 mg 01/31/21 23:21 Acetaminophen 325 Mg Tab PO Q4H PRN Pain MILD(1-3)/Fever >100.5/RIVERA Lipase/Protease/Amylase 1 each 02/01/21 07:14 Lipase 10,500/Protease 25,000/Amylase 43,750 (Units) Dr Braun FEEDTUBE PRN PRN For Clogged Feeding Tube Apixaban 2.5 mg 01/31/21 23:30 02/01/21 00:21 Apixaban 2.5 Mg Tab PO 2.5 mg BID SHAHLA Administration Ascorbic Acid 500 mg 02/01/21 10:00 Ascorbic Acid 500 Mg Tab PO DAILY SHAHLA Citalopram Hydrobromide 20 mg 02/01/21 10:00 Citalopram 20 Mg Tab PO QDAY SHAHLA Famotidine 20 mg 02/01/21 10:00 Famotidine 20 Mg/2 Ml Inj IV BID SHAHLA Hydromorphone HCl 0.5 mg 01/31/21 23:21 Hydromorphone 1 Mg/1 Ml Inj IV Q3H PRN Pain , Severe (7-10) Cefepime HCl 2 gm in 100 mls @ 200 mls/hr 02/01/21 10:00 Cefepime/Ns 2 Gm/100 Ml IV 02/07/21 09:59 Q12HR SHAHLA Protocol Sodium Bicarbonate 100 meq/ 1,100 mls @ 100 mls/hr 02/01/21 12:00 Sterile Water IV DIRECT SHAHLA Insulin Human Lispro 0 unit 01/31/21 23:45 02/01/21 06:19 Insulin Lispro 100 Unit/Ml SUB-Q 3 unit Q4HR [facility] Administration Protocol Morphine Sulfate 2 mg 01/31/21 23:21 Morphine 2 Mg/1 Ml Inj IV Q4H PRN Pain, Moderate (4-6) Ondansetron HCl 4 mg 01/31/21 23:21 Ondansetron 4 Mg/2 Ml Inj IV Q8H PRN Nausea And Vomiting Simple Syrup 15 ml 02/01/21 07:14 Simple Syrup 15 Ml FEEDTUBE PRN PRN Hypoglycemia Simple Syrup 30 ml 02/01/21 07:14 Simple Syrup 15 Ml FEEDTUBE PRN PRN Hypoglycemia Sodium Bicarbonate 325 mg 02/01/21 07:14 Sodium Bicarbonate 325 Mg Tab FEEDTUBE PRN PRN For Clogged Feeding Tube Sodium Chloride 10 ml 02/01/21 10:00 Sodium Chloride 0.9% 10 Ml Flush Syringe IV BID SHAHLA Sodium Chloride 10 ml 01/31/21 23:21 Sodium Chloride 0.9% 10 Ml Flush Syringe IV PRN PRN LINE FLUSH Nutrition/Malnutrition Assess - Dietary Evaluation Nutrition/Malnutrition Findings: Nutrition Notes Start: 02/01/21 10:35 Freq: Status: Active Protocol: Document 02/01/21 10:35 CW (Rec: 02/01/21 10:58 CW [id number]) Nutrition Notes Need for Assessment generated from: MD Order,patient access coordinator Initial or Follow up Assessment Current Diagnosis CKD(stage I-IV),Diabetes, Sepsis,Hypertension, Respiratory Failure Other Pertinent Diagnosis Dysphagia, AMS, PNA, metabolic acidosis, malnutrition Current Diet TF Labs/Tests BUN 36 Cr 1.6 BG 122 a1C 8.7 Pertinent Medications Humalog NS at 75 ml/hr KCl 30 mEq Kdur Height 5 ft 2 in Weight 68.039 kg Usual Body Weight 45 kg [place] Body Weight (kg) 50.00 BMI 27.4 Weight change and time frame 33.7% weight increase x 1 month Weight Status Overweight Subjective/Other Information MD order for Write manage TF feeding, RN screen for hx of TF, and hx of dyspagia. On previous visits, has been on Glucerna TF. Pt is also nonverbal. Recommend restarting TF regimen. Pt also has a hx of malnutrition. Large weight increase likely inaccurate. Will monitor for stable weight as well. TF running at decreased rate to protect renal functioning d/t elevated BUN and Cr. Recommend increaseing to 55 ml/hr when renal functioning improves Burn Absent Trauma Absent GI Symptoms None Difficulty In Swallowing,Chewing Current % PO Negligible Minimum of two criteria No physical signs of malnutrition #1 Nutrition Diagnosis No nutrition diagnosis at this time Is patient on ventilator? No Is Patient Ambulatory and/or Out of Bed Yes REE-([facility]-ambulatory/OOB) [ 1597.232 [id number]] Calculation Used for Recommendations [facility] Additional Notes protein needs:41 - 54g (0.6 - 0.8g/kgBW) fluid needs: 1 ml/kcal or per MD Nutrition Intervention Change Diet Order: Initiate TF Regimen Nutrition Support: Glucerna 1.2 at 45 ml/hr with a free water flush of 75 ml q4h Kcal 1,296 Protein (gm) 65 Fluid (mL) 876 Goal #1 Meet at least 75% of kcal and protein needs via TF Anticipated Discharge Needs: Glucerna 1.2 at 50 ml/hr with a free water flush of 85 ml q4h Follow-Up By: 02/03/21 Additional Comments F/U for start, TF tolerance, renal related labs
[2021-02-01] MEDS: CITALOPRAM 20 MG TAB PO SCH (12:24)
[2021-02-01] MEDS: ASCORBIC ACID 500 MG TAB PO SCH (12:24)
[2021-02-01] MEDS: FAMOTIDINE 20 MG/2 ML INJ IV SCH ×2 (12:24→22:45)
--- NOTE | 2021-02-01 13:02 | Consultation ---
History of Present Illness - Reason for Consult Consult date: 02/01/21 - History of Present Illness 55-year-old female past medical history hypertension, dysphagia with PEG tube in place, diabetes with frequent DKA sent to hospital from her halfway due to DKA hypoxia. She was found to be encephalopathic on admission. Febrile on admission to 102.6 with a white count initially of 1.6, which is now resolved to 8.8. Pending Covid PCR. Estimated GFR 33, elevated procalcitonin in the setting of RACH. Blood cultures pending, currently on cefepime Imaging personally reviewed: Chest CT: Bilateral patchy airspace opacities Review of systems: Deferred to reduce to the risk of transmission of COVID-19 Medications and Allergies Allergies Allergy/AdvReac Type Severity Reaction Status Date / Time No Known Allergies Allergy Verified 02/26/20 10:24 Home Medications Medication Instructions Recorded Confirmed Last Taken Type Citalopram [Celexa] 20 mg PO QDAY 01/25/20 01/07/21 Unknown History Pravastatin [Pravachol] 40 mg PO QHS 01/25/20 01/07/21 Unknown History Acetaminophen [Mapap] 650 mg PO BID PRN 02/26/20 01/07/21 Unknown History Ascorbic Acid [Vitamin C with Chetna 500 mg PO DAILY 02/26/20 01/07/21 Unknown History Hips] Glimepiride [Amaryl] 4 mg PO QAM 02/26/20 01/07/21 Unknown History Insulin Lispro [Humalog] 5 units SQ AC 02/26/20 01/07/21 Unknown History Multivit-Min/Ferrous Fumarate 15 mg PO DAILY 02/26/20 01/07/21 Unknown History [Multivitamin with Minerals Tab] Apixaban [Eliquis] 2.5 mg PO BID #30 tablet 03/01/20 01/07/21 Unknown Rx Famotidine [Pepcid] 20 mg PO QDAY #30 tablet 11/26/20 01/07/21 Unknown Rx Insulin Glargine [Lantus VIAL] 30 units SUB-Q QHS #10 units 11/26/20 01/07/21 Unknown Rx Lipase/Protease/Amylase [Pancreaze 1 each FEEDTUBE PRN PRN capsule 11/26/20 01/07/21 Unknown Rx 10,500 Unit] Insulin Regular, Human [HumuLIN R] 0 units SUB-Q Q6HR units 01/10/21 Unknown Rx Simple Syrup 15 ml FEEDTUBE PRN PRN oral.liqd 01/10/21 Unknown Rx Simple Syrup 30 ml FEEDTUBE PRN PRN oral.liqd 01/10/21 Unknown Rx Sodium Bicarbonate 325 mg FEEDTUBE PRN PRN tablet 01/10/21 Unknown Rx levoFLOXacin [Levaquin] 750 mg PO QDAY #10 tablet 01/10/21 Unknown Rx Active Meds: Active Medications Acetaminophen (Acetaminophen 325 Mg Tab) 650 mg PO Q4H PRN PRN Reason: Pain MILD(1-3)/Fever >100.5/RIVERA Lipase/Protease/Amylase (Lipase 10,500/Protease 25,000/Amylase 43,750 (Units) Dr Braun) 1 each FEEDTUBE PRN PRN PRN Reason: For Clogged Feeding Tube Apixaban (Apixaban 2.5 Mg Tab) 2.5 mg PO BID [facility] Last Admin: 02/01/21 12:24 Dose: 2.5 mg Documented by: Ascorbic Acid (Ascorbic Acid 500 Mg Tab) 500 mg PO DAILY [facility] Last Admin: 02/01/21 12:24 Dose: 500 mg Documented by: Citalopram Hydrobromide (Citalopram 20 Mg Tab) 20 mg PO QDAY [facility] Last Admin: 02/01/21 12:24 Dose: 20 mg Documented by: Famotidine (Famotidine 20 Mg/2 Ml Inj) 20 mg IV BID [facility] Last Admin: 02/01/21 12:24 Dose: 20 mg Documented by: Hydromorphone HCl (Hydromorphone 1 Mg/1 Ml Inj) 0.5 mg IV Q3H PRN PRN Reason: Pain , Severe (7-10) Cefepime HCl (Cefepime/Ns 2 Gm/100 Ml) 2 gm in 100 mls @ 200 mls/hr IV Q12HR [facility]; Protocol Stop: 02/07/21 09:59 Last Admin: 02/01/21 12:25 Dose: 200 mls/hr Documented by: Sodium Bicarbonate 100 meq/ (Sterile Water) 1,100 mls @ 100 mls/hr IV DIRECT [facility] Insulin Human Lispro (Insulin Lispro 100 Unit/Ml) 0 unit SUB-Q Q4HR [facility]; Protocol Last Admin: 02/01/21 12:25 Dose: 3 unit Documented by: Morphine Sulfate (Morphine 2 Mg/1 Ml Inj) 2 mg IV Q4H PRN PRN Reason: Pain, Moderate (4-6) Ondansetron HCl (Ondansetron 4 Mg/2 Ml Inj) 4 mg IV Q8H PRN PRN Reason: Nausea And Vomiting Simple Syrup (Simple Syrup 15 Ml) 15 ml FEEDTUBE PRN PRN PRN Reason: Hypoglycemia Simple Syrup (Simple Syrup 15 Ml) 30 ml FEEDTUBE PRN PRN PRN Reason: Hypoglycemia Sodium Bicarbonate (Sodium Bicarbonate 325 Mg Tab) 325 mg FEEDTUBE PRN PRN PRN Reason: For Clogged Feeding Tube Sodium Chloride (Sodium Chloride 0.9% 10 Ml Flush Syringe) 10 ml IV BID SHAHLA Last Admin: 02/01/21 12:25 Dose: 10 ml Documented by: Sodium Chloride (Sodium Chloride 0.9% 10 Ml Flush Syringe) 10 ml IV PRN PRN PRN Reason: LINE FLUSH Physical Examination - Physical Exam Narrative exam: Physical exam deferred to reduce risk of transmission of COVID-19. Please refer to primary team's note. - Constitutional Vitals: Vital Signs Temp Pulse Resp BP Pulse Ox 99.8 F H 130 H 22 82/45 91 01/31/21 23:46 01/31/21 23:46 01/31/21 23:46 01/31/21 23:46 01/31/21 23:46 Temperature -Last 24 Hours Temperature 99.8 F Results - Labs CBC & Chem 7: 02/01/21 08:10 02/01/21 08:10 Labs: Abnormal lab results 01/31/21 01/31/21 01/31/21 Range/Units 09:58 21:37 21:37 RBC (3.65-5.03) M/mm3 Hgb (10.1-14.3) gm/dl Hct (30.3-42.9) % MCV (79-97) fl MCH (28-32) pg Lymph % (Auto) (13.4-35.0) % Lymph # (Auto) (1.2-5.4) K/mm3 Seg Neutrophils % (40.0-70.0) % Seg Neutrophils # (1.8-7.7) K/mm3 Seg Neutrophils # Man 0.7 L (1.8-7.7) K/mm3 Lymphocytes # (Manual) 0.5 L (1.2-5.4) K/mm3 D-Dimer 1611.25 H (0-234) ng/mlDDU Chloride (98-107) mmol/L Carbon Dioxide (22-30) mmol/L BUN (7-17) mg/dL Creatinine (0.6-1.2) mg/dL Glucose (65-100) mg/dL POC Glucose (70-105) mg/dL Hemoglobin A1c (4-6) % Ferritin 573.6 H (10.0-200.0) ng/mL AST (5-40) units/L C-Reactive Protein (0.00-1.30) mg/dL Total Protein (6.3-8.2) g/dL Albumin (3.9-5) g/dL Urine WBC (Auto) (0.0-6.0) /HPF 01/31/21 01/31/21 02/01/21 Range/Units 21:37 21:44 04:19 RBC (3.65-5.03) M/mm3 Hgb (10.1-14.3) gm/dl Hct (30.3-42.9) % MCV (79-97) fl MCH (28-32) pg Lymph % (Auto) (13.4-35.0) % Lymph # (Auto) (1.2-5.4) K/mm3 Seg Neutrophils % (40.0-70.0) % Seg Neutrophils # (1.8-7.7) K/mm3 Seg Neutrophils # Man (1.8-7.7) K/mm3 Lymphocytes # (Manual) (1.2-5.4) K/mm3 D-Dimer (0-234) ng/mlDDU Chloride (98-107) mmol/L Carbon Dioxide (22-30) mmol/L BUN (7-17) mg/dL Creatinine (0.6-1.2) mg/dL Glucose (65-100) mg/dL POC Glucose 340 H (70-105) mg/dL Hemoglobin A1c (4-6) % Ferritin (10.0-200.0) ng/mL AST (5-40) units/L C-Reactive Protein 19.30 H (0.00-1.30) mg/dL Total Protein (6.3-8.2) g/dL Albumin (3.9-5) g/dL Urine WBC (Auto) 14.0 H (0.0-6.0) /HPF 02/01/21 02/01/21 02/01/21 Range/Units 06:14 08:10 08:10 RBC 2.58 L (3.65-5.03) M/mm3 Hgb 8.5 L (10.1-14.3) gm/dl Hct 25.7 L D (30.3-42.9) % MCV 99 H (79-97) fl MCH 33 H (28-32) pg Lymph % (Auto) 6.6 L (13.4-35.0) % Lymph # (Auto) 0.6 L (1.2-5.4) K/mm3 Seg Neutrophils % 87.9 H (40.0-70.0) % Seg Neutrophils # 7.8 H (1.8-7.7) K/mm3 Seg Neutrophils # Man (1.8-7.7) K/mm3 Lymphocytes # (Manual) (1.2-5.4) K/mm3 D-Dimer (0-234) ng/mlDDU Chloride 110.2 H (98-107) mmol/L Carbon Dioxide 15 L (22-30) mmol/L BUN 36 H (7-17) mg/dL Creatinine 1.6 H D (0.6-1.2) mg/dL Glucose 122 H (65-100) mg/dL POC Glucose 181 H (70-105) mg/dL Hemoglobin A1c (4-6) % Ferritin (10.0-200.0) ng/mL AST 127 H (5-40) units/L C-Reactive Protein (0.00-1.30) mg/dL Total Protein 5.4 L (6.3-8.2) g/dL Albumin 2.7 L (3.9-5) g/dL Urine WBC (Auto) (0.0-6.0) /HPF 02/01/21 02/01/21 Range/Units 08:10 12:00 RBC (3.65-5.03) M/mm3 Hgb (10.1-14.3) gm/dl Hct (30.3-42.9) % MCV (79-97) fl MCH (28-32) pg Lymph % (Auto) (13.4-35.0) % Lymph # (Auto) (1.2-5.4) K/mm3 Seg Neutrophils % (40.0-70.0) % Seg Neutrophils # (1.8-7.7) K/mm3 Seg Neutrophils # Man (1.8-7.7) K/mm3 Lymphocytes # (Manual) (1.2-5.4) K/mm3 D-Dimer (0-234) ng/mlDDU Chloride (98-107) mmol/L Carbon Dioxide (22-30) mmol/L BUN (7-17) mg/dL Creatinine (0.6-1.2) mg/dL Glucose (65-100) mg/dL POC Glucose 261 H (70-105) mg/dL Hemoglobin A1c 8.7 H (4-6) % Ferritin (10.0-200.0) ng/mL AST (5-40) units/L C-Reactive Protein (0.00-1.30) mg/dL Total Protein (6.3-8.2) g/dL Albumin (3.9-5) g/dL Urine WBC (Auto) (0.0-6.0) /HPF Assessment and Plan Cultures: Blood culture no growth so far Covid PCR: Pending A/P: 55-year-old female past medical history hypertension, dysphagia with PEG tube in place, diabetes with frequent DKA admitted with bilateral pneumonia #Acute sepsis: Present with fevers, tachycardia. Likely secondary to pneumonia #Acute respiratory failure: Saturations down to the 80s on admission, improving. Secondary to pneumonia #Bilateral pneumonia: Covid PUI, pending PCR. Elevated procalcitonin setting of RACH, probable bacterial pneumonia at this point. #RACH: Renally dose antibiotics. #Diabetes: tight glycemic control for best outcomes. Recs: -Continue empiric renally dosed cefepime -Follow-up cultures -Follow COVID-19 PCR Thank you for the consult, we will continue to follow. MD [facility] ([facility] O: [phone] F: [phone]
[2021-02-01] MEDS: SODIUM BICARBONATE 100 MEQ in WATER FOR INJECTION (PF) 1,000 ML IV SCH (14:26)
[2021-02-02] MEDS: INSULIN LISPRO 100 UNIT/ML SUB-Q SCH ×6 (00:15→22:33)
[2021-02-02] MEDS: SODIUM BICARBONATE 100 MEQ in WATER FOR INJECTION (PF) 1,000 ML IV SCH (04:01)
[2021-02-02 06:21] LABS: Hematocrit 24.9 % (30.3-42.9); Hemoglobin 8.1 gm/dl (10.1-14.3); Mean Corpuscular HGB Conc 32 % (30-34); Mean Corpuscular Volume 102 fl (79-97); Platelet Count 134 K/mm3 (140-440); Red Blood Count 2.45 M/mm3 (3.65-5.03); Red Cell Distribution Width 15.2 % (13.2-15.2)
[2021-02-02 06:36] LABS: Calcium 9.1 mg/dL (8.4-10.2)
[2021-02-02] MEDS: CITALOPRAM 20 MG TAB PO SCH (09:25)
[2021-02-02] MEDS: ASCORBIC ACID 500 MG TAB PO SCH (09:25)
[2021-02-02] MEDS: CEFEPIME/NS 2 GM/100 ML 2 GM/100 ML BAG IV SCH (09:25)
[2021-02-02] MEDS: FAMOTIDINE 10 MG TAB PO SCH ×2 (09:25→22:31)
[2021-02-02] MEDS: APIXABAN 2.5 MG TAB PO SCH ×2 (09:26→22:31)
--- NOTE | 2021-02-02 10:02 | Progress Note ---
Assessment and Plan 1. Acute kidney injury: Vasomotor RACH superimposed on CKD in the setting of sepsis. ATN likely. CT abdomen negative for hydro. Urine studies ordered. Monitor renal function. Creatinine level increasing. Avoid nephrotoxic agents. Meds dosage based on GFR. 2. FEN: Anion-gap metabolic acidosis, on Sod bicarb drip, monitor. Hypokalemia, improved, monitor. Monitor lytes and volume status. 3. Sepsis, POA: Likely 2/2 PNA. Covid test negative. Followed by ID. 4. Bilateral PNA, POA: Abx. Covid test negative. 5. DM: Monitor. 6. Dysphagia: Patient has PEG tube. 7. Anemia: Monitor. 8. HTN: Monitor BP. 9. Metabolic encephalopathy, POA. Subjective: Patient was seen and examined at the bedside. General Appearance: General appearance: appears stated age, not in distress, appears chronically ill HEENT: ATNC, CAITY Neck: Trachea midline Respiratory: coarse breath sounds Cardiology: regular, S1S2, no murmur Gastrointestinal: normoactive bowel sounds, not tender, not distended, PEG tube noted Integumentary: no rash, warm and dry Neurologic: lethargic, not following any command, non-verbal Ext: no edema Subjective Date of service: 02/02/21 Objective - Vital Signs Vital signs: Vital Signs - 12hr 02/02/21 02/02/21 02/02/21 04:13 05:11 05:41 Temperature 97.7 F Respiratory 16 20 20 Rate Blood Pressure 108/57 - Lab 02/03/21 05:20 02/03/21 05:20 Most recent lab results Calcium 9.1 mg/dL (8.4-10.2) 02/02/21 05:33 Magnesium 1.80 mg/dL (1.7-2.3) 01/31/21 09:58 Medications & Allergies - Medications Allergies/Adverse Reactions: Allergies No Known Allergies Allergy (Verified 02/26/20 10:24) Home Medications: Home Medications Medication Instructions Recorded Confirmed Last Taken Type Citalopram [Celexa] 20 mg PO QDAY 01/25/20 02/01/21 Unknown History Pravastatin [Pravachol] 40 mg PO QHS 01/25/20 02/01/21 Unknown History Acetaminophen [Mapap] 650 mg PO BID PRN 02/26/20 02/01/21 Unknown History Ascorbic Acid [Vitamin C with Chetna 500 mg PO DAILY 02/26/20 02/01/21 Unknown History Hips] Glimepiride [Amaryl] 4 mg PO QAM 02/26/20 02/01/21 Unknown History Insulin Lispro [Humalog] 5 units SQ AC 02/26/20 02/01/21 Unknown History Multivit-Min/Ferrous Fumarate 15 mg PO DAILY 02/26/20 02/01/21 Unknown History [Multivitamin with Minerals Tab] Apixaban [Eliquis] 2.5 mg PO BID #30 tablet 03/01/20 02/01/21 Unknown Rx Famotidine [Pepcid] 20 mg PO QDAY #30 tablet 11/26/20 02/01/21 Unknown Rx Insulin Glargine [Lantus VIAL] 30 units SUB-Q QHS #10 units 11/26/20 02/01/21 Unknown Rx Lipase/Protease/Amylase [Pancreaze 1 each FEEDTUBE PRN PRN capsule 11/26/20 02/01/21 Unknown Rx 10,500 Unit] Insulin Regular, Human [HumuLIN R] 0 units SUB-Q Q6HR units 01/10/21 02/01/21 Unknown Rx Simple Syrup 15 ml FEEDTUBE PRN PRN oral.liqd 01/10/21 02/01/21 Unknown Rx Simple Syrup 30 ml FEEDTUBE PRN PRN oral.liqd 01/10/21 02/01/21 Unknown Rx Sodium Bicarbonate 325 mg FEEDTUBE PRN PRN tablet 01/10/21 02/01/21 Unknown Rx levoFLOXacin [Levaquin] 750 mg PO QDAY #10 tablet 01/10/21 02/01/21 Unknown Rx Active Medications: Generic Name Dose Route Start Last Admin Trade Name Freq PRN Reason Stop Dose Admin Acetaminophen 650 mg 01/31/21 23:21 Acetaminophen 325 Mg Tab PO Q4H PRN Pain MILD(1-3)/Fever >100.5/RIVERA Lipase/Protease/Amylase 1 each 02/01/21 07:14 Lipase 10,500/Protease 25,000/Amylase 43,750 (Units) Dr Braun FEEDTUBE PRN PRN For Clogged Feeding Tube Apixaban 2.5 mg 01/31/21 23:30 02/02/21 09:26 Apixaban 2.5 Mg Tab PO 2.5 mg BID SHAHLA Administration Ascorbic Acid 500 mg 02/01/21 10:00 02/02/21 09:25 Ascorbic Acid 500 Mg Tab PO 500 mg DAILY SHAHLA Administration Citalopram Hydrobromide 20 mg 02/01/21 10:00 02/02/21 09:25 Citalopram 20 Mg Tab PO 20 mg QDAY SHAHLA Administration Famotidine 10 mg 02/02/21 10:00 02/02/21 09:25 Famotidine 10 Mg Tab PO 10 mg BID SHAHLA Administration Hydromorphone HCl 0.5 mg 01/31/21 23:21 Hydromorphone 1 Mg/1 Ml Inj IV Q3H PRN Pain , Severe (7-10) Sodium Bicarbonate 100 meq/ 1,100 mls @ 100 mls/hr 02/01/21 12:00 02/02/21 04:01 Sterile Water IV 100 mls/hr DIRECT SHAHLA Administration Cefepime HCl 2 gm in 100 mls @ 200 mls/hr 02/02/21 10:00 02/02/21 09:25 Cefepime/Ns 2 Gm/100 Ml IV 200 mls/hr Q24HR SHAHLA Administration Protocol Insulin Human Lispro 0 unit 01/31/21 23:45 02/02/21 06:30 Insulin Lispro 100 Unit/Ml SUB-Q 8 unit Q4HR SHAHLA Administration Protocol Morphine Sulfate 2 mg 01/31/21 23:21 02/02/21 05:11 Morphine 2 Mg/1 Ml Inj IV 2 mg Q4H PRN Administration Pain, Moderate (4-6) Ondansetron HCl 4 mg 01/31/21 23:21 Ondansetron 4 Mg/2 Ml Inj IV Q8H PRN Nausea And Vomiting Simple Syrup 15 ml 02/01/21 07:14 Simple Syrup 15 Ml FEEDTUBE PRN PRN Hypoglycemia Simple Syrup 30 ml 02/01/21 07:14 Simple Syrup 15 Ml FEEDTUBE PRN PRN Hypoglycemia Sodium Bicarbonate 325 mg 02/01/21 07:14 Sodium Bicarbonate 325 Mg Tab FEEDTUBE PRN PRN For Clogged Feeding Tube Sodium Chloride 10 ml 02/01/21 10:00 02/02/21 09:26 Sodium Chloride 0.9% 10 Ml Flush Syringe IV 10 ml BID SHAHLA Administration Sodium Chloride 10 ml 01/31/21 23:21 Sodium Chloride 0.9% 10 Ml Flush Syringe IV PRN PRN LINE FLUSH
--- NOTE | 2021-02-02 10:33 | Progress Note ---
Assessment and Plan Assessment and plan: (1) Sepsis with hypotension Current Visit: Yes Status: Acute Plan to address problem: IV fluids IV antibiotics-cefepime and vancomycin No pressors Family is agreed for DNR and comfort care (2) Acute encephalopathy Current Visit: No Status: Acute Plan to address problem: Secondary to sepsis (3) Acute hypoxemic respiratory failure Current Visit: Yes Status: Acute Plan to address problem: Oxygen supplementation as necessary Bilateral pneumonia Sepsis (4) Leukopenia Current Visit: Yes Status: Acute Plan to address problem: Possibly secondary to sepsis (5) Hypokalemia Current Visit: Yes Status: Acute Plan to address problem: IV potassium and potassium via PEG tube given Recheck potassium levels (6) Bilateral pneumonia Current Visit: Yes Status: Acute Qualifiers: Pneumonia type: aspiration pneumonia Plan to address problem: Possible aspiration pneumonia IV cefepime and IV vancomycin Rule out Covid virus infection (7) Malnutrition Current Visit: Yes Status: Chronic Qualifiers: Protein-calorie malnutrition severity: moderate Plan to address problem: Albumin of 3.3 Dietitian consult requested (8) Dysphagia Current Visit: No Status: Chronic Qualifiers: Dysphagia type: oropharyngeal phase Qualified Code(s): R13.12 - Dysphagia, oropharyngeal phase Plan to address problem: Patient is a PEG tube PEG tube feedings as per dietitian (9) DVT prophylaxis Current Visit: Yes Status: Acute Plan to address problem: On heparin and GI prophylaxis (10) Discharge planning issues Current Visit: Yes Status: Acute Plan to address problem: Patient is DNR and family wants only comfort measures and IV antibiotics No aggressive measures like pressors and intubation and CPR 02/01/21 Patient with acute resp failure, bilateral pneumonia, encephalopathy. To r/o Covid- 19 infection. Continue iv Antibiotics. ID Physician consulted. Resume tube feeds Patient has DNR code status. Consulted Nephrology for RACH with Cr 1.6 02/02/21 Patient with acute respiratory failure, bilateral pneumonia Ngative Covid-19 test Worse renal function Cr 2.2 Nephrology following History Interval history: Patient sent in for Fever and low oxygen saturations in the longterm Altered mental status Negative Covid-19 Hospitalist Physical - Physical exam Narrative exam: Gen: Lethargic, not in acute distress HEENT: Normocephalic, atraumatic Lungs:Clear to auscultation, no wheeze Heart:S1 and S2 reg, no murmurs, Abd:soft, NT, ND, PEG tube, normal BS Ext: no edema,no cycanosis Neuro:Lethargic,altered mental status - Constitutional Vitals: Temp Pulse Resp BP Pulse Ox 97.7 F 111 H 20 108/57 97 02/02/21 04:13 02/01/21 17:15 02/02/21 05:41 02/02/21 04:13 02/01/21 17:15 General appearance: Present: no acute distress HEART Score - HEART Score Troponin: Troponin T < 0.010 ng/mL (0.00-0.029) 01/31/21 09:58 Results - Labs CBC & Chem 7: 02/02/21 05:33 02/02/21 05:33 Labs: Laboratory Last Values WBC 10.0 K/mm3 (4.5-11.0) 02/02/21 05:33 RBC 2.45 M/mm3 (3.65-5.03) L 02/02/21 05:33 Hgb 8.1 gm/dl (10.1-14.3) L 02/02/21 05:33 Hct 24.9 % (30.3-42.9) L 02/02/21 05:33 MCV 102 fl (79-97) H 02/02/21 05:33 MCH 33 pg (28-32) H 02/02/21 05:33 MCHC 32 % (30-34) 02/02/21 05:33 RDW 15.2 % (13.2-15.2) 02/02/21 05:33 Plt Count 134 K/mm3 (140-440) L 02/02/21 05:33 Lymph % (Auto) 6.6 % (13.4-35.0) L 02/01/21 08:10 [place] % (Auto) 4.9 % (0.0-7.3) 02/01/21 08:10 Eos % (Auto) 0.4 % (0.0-4.3) 02/01/21 08:10 Baso % (Auto) 0.2 % (0.0-1.8) 02/01/21 08:10 Lymph # (Auto) 0.6 K/mm3 (1.2-5.4) L 02/01/21 08:10 [place] # (Auto) 0.4 K/mm3 (0.0-0.8) 02/01/21 08:10 Eos # (Auto) 0.0 K/mm3 (0.0-0.4) 02/01/21 08:10 Baso # (Auto) 0.0 K/mm3 (0.0-0.1) 02/01/21 08:10 Add Manual Diff Complete 01/31/21 09:58 Total Counted 100 01/31/21 09:58 Seg Neutrophils % 87.9 % (40.0-70.0) H 02/01/21 08:10 Seg Neuts % (Manual) 46.0 % (40.0-70.0) 01/31/21 09:58 Band Neutrophils % 14.0 % 01/31/21 09:58 Lymphocytes % (Manual) 34.0 % (13.4-35.0) 01/31/21 09:58 Reactive Lymphs % (Man) 1.0 % 01/31/21 09:58 Monocytes % (Manual) 5.0 % (0.0-7.3) 01/31/21 09:58 Nucleated RBC % Not Reportable 01/31/21 09:58 Seg Neutrophils # 7.8 K/mm3 (1.8-7.7) H 02/01/21 08:10 Seg Neutrophils # Man 0.7 K/mm3 (1.8-7.7) L 01/31/21 09:58 Band Neutrophils # 0.2 K/mm3 01/31/21 09:58 Lymphocytes # (Manual) 0.5 K/mm3 (1.2-5.4) L 01/31/21 09:58 Abs React Lymphs (Man) 0.0 K/mm3 01/31/21 09:58 Monocytes # (Manual) 0.1 K/mm3 (0.0-0.8) 01/31/21 09:58 Eosinophils # (Manual) 0.0 K/mm3 (0.0-0.4) 01/31/21 09:58 Basophils # (Manual) 0.0 K/mm3 (0.0-0.1) 01/31/21 09:58 Metamyelocytes # 0.0 K/mm3 01/31/21 09:58 Myelocytes # 0.0 K/mm3 01/31/21 09:58 Promyelocytes # 0.0 K/mm3 01/31/21 09:58 Blast Cells # 0.0 K/mm3 01/31/21 09:58 WBC Morphology Not Reportable 01/31/21 09:58 Hypersegmented Neuts Not Reportable 01/31/21 09:58 Hyposegmented Neuts Not Reportable 01/31/21 09:58 Hypogranular Neuts Not Reportable 01/31/21 09:58 Smudge Cells Not Reportable 01/31/21 09:58 Toxic Granulation Not Reportable 01/31/21 09:58 Toxic Vacuolation Not Reportable 01/31/21 09:58 Dohle Bodies Not Reportable 01/31/21 09:58 Pelger-Huet Anomaly Not Reportable 01/31/21 09:58 Jamia Rods Not Reportable 01/31/21 09:58 Platelet Estimate Consistent w auto 01/31/21 09:58 Clumped Platelets Not Reportable 01/31/21 09:58 Plt Clumps, EDTA Not Reportable 01/31/21 09:58 Large Platelets Not Reportable 01/31/21 09:58 Giant Platelets Not Reportable 01/31/21 09:58 Platelet Satelliting Not Reportable 01/31/21 09:58 Plt Morphology Comment Not Reportable 01/31/21 09:58 RBC Morphology Not Reportable 01/31/21 09:58 Dimorphic RBCs Not Reportable 01/31/21 09:58 Polychromasia Not Reportable 01/31/21 09:58 Hypochromasia Few 01/31/21 09:58 Poikilocytosis Not Reportable 01/31/21 09:58 Anisocytosis Not Reportable 01/31/21 09:58 Microcytosis Not Reportable 01/31/21 09:58 Macrocytosis Not Reportable 01/31/21 09:58 Spherocytes Not Reportable 01/31/21 09:58 Pappenheimer Bodies Not Reportable 01/31/21 09:58 Sickle Cells Not Reportable 01/31/21 09:58 Target Cells Not Reportable 01/31/21 09:58 Tear Drop Cells Not Reportable 01/31/21 09:58 Ovalocytes Not Reportable 01/31/21 09:58 Helmet Cells Not Reportable 01/31/21 09:58 [place] Bodies Not Reportable 01/31/21 09:58 [place] Rings Not Reportable 01/31/21 09:58 Luis Cells Not Reportable 01/31/21 09:58 Bite Cells Not Reportable 01/31/21 09:58 Crenated Cell Not Reportable 01/31/21 09:58 Elliptocytes Not Reportable 01/31/21 09:58 Acanthocytes (Spur) Not Reportable 01/31/21 09:58 Rouleaux Not Reportable 01/31/21 09:58 Hemoglobin C Crystals Not Reportable 01/31/21 09:58 Schistocytes Not Reportable 01/31/21 09:58 Malaria parasites Not Reportable 01/31/21 09:58 ESR 40 mm/Hr (0-20) 01/31/21 09:58 Felice Bodies Not Reportable 01/31/21 09:58 Hem Pathologist Commnt No 01/31/21 09:58 PT 18.3 Sec. (12.2-14.9) H 01/31/21 09:58 INR 1.47 (0.87-1.13) H 01/31/21 09:58 APTT 25.1 Sec. (24.2-36.6) 01/31/21 09:58 D-Dimer 1611.25 ng/mlDDU (0-234) H 01/31/21 21:37 Sodium 142 mmol/L (137-145) 02/02/21 05:33 Potassium 4.8 mmol/L (3.6-5.0) 02/02/21 05:33 Chloride 106.5 mmol/L (98-107) 02/02/21 05:33 Carbon Dioxide 10 mmol/L (22-30) L 02/02/21 05:33 Anion Gap 30 mmol/L 02/02/21 05:33 BUN 47 mg/dL (7-17) H 02/02/21 05:33 Creatinine 2.2 mg/dL (0.6-1.2) H 02/02/21 05:33 Estimated GFR 23 ml/min 02/02/21 05:33 BUN/Creatinine Ratio 21 % 02/02/21 05:33 Glucose 234 mg/dL (65-100) H 02/02/21 05:33 POC Glucose 308 mg/dL (70-105) H 02/02/21 06:28 Hemoglobin A1c 8.7 % (4-6) H 02/01/21 08:10 Lactic Acid 6.80 mmol/L (0.7-2.0) H* 01/31/21 09:58 Calcium 9.1 mg/dL (8.4-10.2) 02/02/21 05:33 Magnesium 1.80 mg/dL (1.7-2.3) 01/31/21 09:58 Ferritin 573.6 ng/mL (10.0-200.0) H 01/31/21 21:37 Total Bilirubin < 0.20 mg/dL (0.1-1.2) 02/01/21 08:10 AST 127 units/L (5-40) H 02/01/21 08:10 ALT 37 units/L (7-56) 02/01/21 08:10 Alkaline Phosphatase 88 units/L (35-129) 02/01/21 08:10 Lactate Dehydrogenase 173 units/L (91-180) 01/31/21 21:37 Troponin T < 0.010 ng/mL (0.00-0.029) 01/31/21 09:58 C-Reactive Protein 19.30 mg/dL (0.00-1.30) H 01/31/21 21:37 NT-Pro-B Natriuret Pep 1763 pg/mL (0-900) H 01/31/21 09:58 Total Protein 5.4 g/dL (6.3-8.2) L 02/01/21 08:10 Albumin 2.7 g/dL (3.9-5) L 02/01/21 08:10 Albumin/Globulin Ratio 1.0 % 02/01/21 08:10 Lipase 13 units/L (13-60) 01/31/21 09:58 Procalcitonin 38.21 ng/mL (<0.15) 01/31/21 21:37 Urine Color Yellow (Yellow) 02/01/21 04:19 Urine Turbidity Cloudy (Clear) 02/01/21 04:19 Urine pH 5.0 (5.0-7.0) 02/01/21 04:19 Ur Specific Joanna 1.016 (1.003-1.030) 02/01/21 04:19 Urine Protein 100 mg/dl mg/dL (Negative) 02/01/21 04:19 Urine Glucose (UA) >=500 mg/dL (Negative) 02/01/21 04:19 Urine Ketones 20 mg/dL (Negative) 02/01/21 04:19 Urine Blood Mod (Negative) 02/01/21 04:19 Urine Nitrite Neg (Negative) 02/01/21 04:19 Urine Bilirubin Neg (Negative) 02/01/21 04:19 Urine Urobilinogen < 2.0 mg/dL (<2.0) 02/01/21 04:19 Ur Leukocyte Esterase Neg (Negative) 02/01/21 04:19 Urine WBC (Auto) 14.0 /HPF (0.0-6.0) H 02/01/21 04:19 Urine RBC (Auto) 8.0 /HPF (0.0-6.0) 02/01/21 04:19 U Epithel Cells (Auto) 2.0 /HPF (0-13.0) 02/01/21 04:19 Urine Bacteria (Auto) 1+ /HPF (Negative) 02/01/21 04:19 Amorphous Crystals 1+ 02/01/21 04:19 Coronavirus (PCR) Negative (Negative) 01/31/21 Unknown Microbiology: Microbiology 01/31/21 09:58 Peripheral/Venous Blood Culture - Preliminary NO GROWTH AFTER 24 HOURS 01/31/21 09:58 Peripheral/Venous Blood Culture - Preliminary NO GROWTH AFTER 24 HOURS Verma/IV: Voiding Method Incontinent Active Medications - Current Medications Current Medications: Generic Name Dose Route Start Last Admin Trade Name Freq PRN Reason Stop Dose Admin Acetaminophen 650 mg 01/31/21 23:21 Acetaminophen 325 Mg Tab PO Q4H PRN Pain MILD(1-3)/Fever >100.5/RIVERA Lipase/Protease/Amylase 1 each 02/01/21 07:14 Lipase 10,500/Protease 25,000/Amylase 43,750 (Units) Dr Braun FEEDTUBE PRN PRN For Clogged Feeding Tube Apixaban 2.5 mg 01/31/21 23:30 02/02/21 09:26 Apixaban 2.5 Mg Tab PO 2.5 mg BID SHAHLA Administration Ascorbic Acid 500 mg 02/01/21 10:00 02/02/21 09:25 Ascorbic Acid 500 Mg Tab PO 500 mg DAILY SHAHLA Administration Citalopram Hydrobromide 20 mg 02/01/21 10:00 02/02/21 09:25 Citalopram 20 Mg Tab PO 20 mg QDAY SHAHLA Administration Famotidine 10 mg 02/02/21 10:00 02/02/21 09:25 Famotidine 10 Mg Tab PO 10 mg BID SHAHLA Administration Hydromorphone HCl 0.5 mg 01/31/21 23:21 Hydromorphone 1 Mg/1 Ml Inj IV Q3H PRN Pain , Severe (7-10) Sodium Bicarbonate 100 meq/ 1,100 mls @ 100 mls/hr 02/01/21 12:00 02/02/21 04:01 Sterile Water IV 100 mls/hr DIRECT SHAHLA Administration Cefepime HCl 2 gm in 100 mls @ 200 mls/hr 02/02/21 10:00 02/02/21 09:25 Cefepime/Ns 2 Gm/100 Ml IV 200 mls/hr Q24HR SHAHLA Administration Protocol Insulin Human Lispro 0 unit 01/31/21 23:45 02/02/21 06:30 Insulin Lispro 100 Unit/Ml SUB-Q 8 unit Q4HR SHAHLA Administration Protocol Morphine Sulfate 2 mg 01/31/21 23:21 02/02/21 05:11 Morphine 2 Mg/1 Ml Inj IV 2 mg Q4H PRN Administration Pain, Moderate (4-6) Ondansetron HCl 4 mg 01/31/21 23:21 Ondansetron 4 Mg/2 Ml Inj IV Q8H PRN Nausea And Vomiting Simple Syrup 15 ml 02/01/21 07:14 Simple Syrup 15 Ml FEEDTUBE PRN PRN Hypoglycemia Simple Syrup 30 ml 02/01/21 07:14 Simple Syrup 15 Ml FEEDTUBE PRN PRN Hypoglycemia Sodium Bicarbonate 325 mg 02/01/21 07:14 Sodium Bicarbonate 325 Mg Tab FEEDTUBE PRN PRN For Clogged Feeding Tube Sodium Chloride 10 ml 02/01/21 10:00 02/02/21 09:26 Sodium Chloride 0.9% 10 Ml Flush Syringe IV 10 ml BID SHAHLA Administration Sodium Chloride 10 ml 01/31/21 23:21 Sodium Chloride 0.9% 10 Ml Flush Syringe IV PRN PRN LINE FLUSH Nutrition/Malnutrition Assess - Dietary Evaluation Nutrition/Malnutrition Findings: Nutrition Notes Start: 02/01/21 10:35 Freq: Status: Active Protocol: Document 02/01/21 10:35 CW (Rec: 02/01/21 10:58 CW [id number]) Nutrition Notes Need for Assessment generated from: MD Order,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 medicine medical director Initial or Follow up Assessment Current Diagnosis CKD(stage I-IV),Diabetes, Sepsis,Hypertension, Respiratory Failure Other Pertinent Diagnosis Dysphagia, AMS, PNA, metabolic acidosis, malnutrition Current Diet TF Labs/Tests BUN 36 Cr 1.6 BG 122 a1C 8.7 Pertinent Medications Humalog NS at 75 ml/hr KCl 30 mEq Kdur Height 5 ft 2 in Weight 68.039 kg Usual Body Weight 45 kg [place] Body Weight (kg) 50.00 BMI 27.4 Weight change and time frame 33.7% weight increase x 1 month Weight Status Overweight Subjective/Other Information MD order for Write manage TF feeding, RN screen for hx of TF, and hx of dyspagia. On previous visits, has been on Glucerna TF. Pt is also nonverbal. Recommend restarting TF regimen. Pt also has a hx of malnutrition. Large weight increase likely inaccurate. Will monitor for stable weight as well. TF running at decreased rate to protect renal functioning d/t elevated BUN and Cr. Recommend increaseing to 55 ml/hr when renal functioning improves Burn Absent Trauma Absent GI Symptoms None Difficulty In Swallowing,Chewing Current % PO Negligible Minimum of two criteria No physical signs of malnutrition #1 Nutrition Diagnosis No nutrition diagnosis at this time Is patient on ventilator? No Is Patient Ambulatory and/or Out of Bed Yes REE-([facility]-ambulatory/OOB) [ 1597.232 [id number]] Calculation Used for Recommendations [facility] Additional Notes protein needs:41 - 54g (0.6 - 0.8g/kgBW) fluid needs: 1 ml/kcal or per MD Nutrition Intervention Change Diet Order: Initiate TF Regimen Nutrition Support: Glucerna 1.2 at 45 ml/hr with a free water flush of 75 ml q4h Kcal 1,296 Protein (gm) 65 Fluid (mL) 876 Goal #1 Meet at least 75% of kcal and protein needs via TF Anticipated Discharge Needs: Glucerna 1.2 at 50 ml/hr with a free water flush of 85 ml q4h Follow-Up By: 02/03/21 Additional Comments F/U for start, TF tolerance, renal related labs
--- NOTE | 2021-02-02 11:29 | Progress Note ---
Assessment and Plan Cultures: Blood culture no growth so far Covid PCR: Negative A/P: 55-year-old female past medical history hypertension, dysphagia with PEG tube in place, diabetes with frequent DKA admitted with bilateral pneumonia #Acute sepsis: Present with fevers, tachycardia. Likely secondary to pneumonia #Acute respiratory failure: Saturations down to the 80s on admission, improving. Secondary to pneumonia #Bilateral pneumonia: Negative Covid PCR. Elevated procalcitonin setting of RACH, probable bacterial pneumonia at this point. #RACH: Renally dose antibiotics. #Diabetes: tight glycemic control for best outcomes. Recs: -Continue empiric renally dosed cefepime. Follow-up 5 days. -Follow-up cultures Thank you for the consult, we will continue to follow. Mayra Romero MD [facility] O: [phone] F: [phone] Subjective Date of service: 02/02/21 Interval history: Afebrile overnight, normal white count, Covid negative. Objective - Exam Narrative Exam: Physical exam deferred to reduce risk of transmission of COVID-19. Please refer to primary team's note. - Constitutional Vitals: Vital Signs Temp Pulse Resp BP Pulse Ox 97.7 F 111 H 20 108/57 97 02/02/21 04:13 02/01/21 17:15 02/02/21 05:41 02/02/21 04:13 02/01/21 17:15 Temperature -Last 24 Hours Temperature 97.7 F Temperature 99.9 F Temperature 100.1 F - Labs CBC & Chem 7: 02/02/21 05:33 02/02/21 05:33 Labs: Abnormal lab results 02/01/21 02/01/21 02/02/21 Range/Units 12:00 17:12 01:00 RBC (3.65-5.03) M/mm3 Hgb (10.1-14.3) gm/dl Hct (30.3-42.9) % MCV (79-97) fl MCH (28-32) pg Plt Count (140-440) K/mm3 Carbon Dioxide (22-30) mmol/L BUN (7-17) mg/dL Creatinine (0.6-1.2) mg/dL Glucose (65-100) mg/dL POC Glucose 261 H 121 H 367 H (70-105) mg/dL 02/02/21 02/02/21 02/02/21 Range/Units 05:33 05:33 06:28 RBC 2.45 L (3.65-5.03) M/mm3 Hgb 8.1 L (10.1-14.3) gm/dl Hct 24.9 L (30.3-42.9) % MCV 102 H (79-97) fl MCH 33 H (28-32) pg Plt Count 134 L (140-440) K/mm3 Carbon Dioxide 10 L (22-30) mmol/L BUN 47 H (7-17) mg/dL Creatinine 2.2 H (0.6-1.2) mg/dL Glucose 234 H (65-100) mg/dL POC Glucose 308 H (70-105) mg/dL 02/02/21 02/02/21 Range/Units 10:55 11:13 RBC (3.65-5.03) M/mm3 Hgb (10.1-14.3) gm/dl Hct (30.3-42.9) % MCV (79-97) fl MCH (28-32) pg Plt Count (140-440) K/mm3 Carbon Dioxide (22-30) mmol/L BUN (7-17) mg/dL Creatinine (0.6-1.2) mg/dL Glucose (65-100) mg/dL POC Glucose 142 H 122 H (70-105) mg/dL
[2021-02-03] MEDS: INSULIN LISPRO 100 UNIT/ML SUB-Q SCH ×10 (00:16→22:03)
[2021-02-03] MEDS: SODIUM BICARBONATE 100 MEQ in WATER FOR INJECTION (PF) 1,000 ML IV SCH (05:32)
[2021-02-03 05:47] LABS: Hemoglobin 8.1 gm/dl (10.1-14.3); Mean Corpuscular HGB Conc 34 % (30-34); Mean Corpuscular Volume 97 fl (79-97); Red Blood Count 2.46 M/mm3 (3.65-5.03); Red Cell Distribution Width 14.8 % (13.2-15.2)
[2021-02-03 05:48] LABS: Platelet Count 136 K/mm3 (140-440)
[2021-02-03 06:05] LABS: Calcium 9.3 mg/dL (8.4-10.2)
[2021-02-03] MEDS ORDERED: SODIUM PHOSPHATE 30 MMOL in SODIUM CHLORIDE 0.9% 500 ML 500 ML IV ONE (10:00)
--- NOTE | 2021-02-03 10:02 | Progress Note ---
Assessment and Plan Assessment and plan: (1) Sepsis with hypotension Current Visit: Yes Status: Acute Plan to address problem: IV fluids IV antibiotics-cefepime and vancomycin No pressors Family is agreed for DNR and comfort care (2) Acute toxic metabolic encephalopathy Current Visit: No Status: Acute Plan to address problem: Secondary to sepsis (3) Acute hypoxemic respiratory failure Current Visit: Yes Status: Acute Plan to address problem: Oxygen supplementation as necessary Bilateral pneumonia Sepsis (4) Leukopenia Current Visit: Yes Status: Acute Plan to address problem: Possibly secondary to sepsis (5) Hypokalemia Current Visit: Yes Status: Acute Plan to address problem: IV potassium and potassium via PEG tube given Recheck potassium levels (6) Bilateral pneumonia Current Visit: Yes Status: Acute Qualifiers: Pneumonia type: aspiration pneumonia Plan to address problem: Possible aspiration pneumonia IV cefepime and IV vancomycin Negative for Covid (7) Malnutrition Current Visit: Yes Status: Chronic Qualifiers: Protein-calorie malnutrition severity: moderate Plan to address problem: Albumin of 3.3 Dietitian consult requested (8) Dysphagia Current Visit: No Status: Chronic Qualifiers: Dysphagia type: oropharyngeal phase Qualified Code(s): R13.12 - Dysphagia, oropharyngeal phase Plan to address problem: Patient is a PEG tube PEG tube feedings as per dietitian (9) DVT prophylaxis Current Visit: Yes Status: Acute Plan to address problem: On heparin and GI prophylaxis (10) Discharge planning issues Current Visit: Yes Status: Acute Plan to address problem: Patient is DNR and family wants only comfort measures and IV antibiotics No aggressive measures like pressors and intubation and CPR 02/01/21 Patient with acute resp failure, bilateral pneumonia, encephalopathy. To r/o Covid- 19 infection. Continue iv Antibiotics. ID Physician consulted. Resume tube feeds Patient has DNR code status. Consulted Nephrology for RACH with Cr 1.6 02/02/21 Patient with acute respiratory failure, bilateral pneumonia Negative Covid-19 test Worse renal function Cr 2.2 Nephrology following 02/03/21 Patient sent in from SNF for fever and low oxygen saturation. She is diagnosed with acute respiratory failure due to bilateral pneumonia. She is negative for Covid Sepsis due to pneumonia Acute toxic metabolic encephalopathy Also RACH which is worsening. Cr 2.7 today. I discussed with Dr. Bryan Hypophosphatemia: replace iv DM uncontrolled : Increase Insuilin dose DNR History Interval history: Patient sent in for Fever and low oxygen saturations in the custodial Altered mental status Negative Covid-19 Hospitalist Physical - Physical exam Narrative exam: Gen: Lethargic, not in acute distress HEENT: Normocephalic, atraumatic Lungs:Clear to auscultation, no wheeze Heart:S1 and S2 reg, no murmurs, Abd:soft, NT, ND, PEG tube, normal BS Ext: no edema,no cycanosis Neuro:Lethargic,altered mental status - Constitutional Vitals: Temp Pulse Resp BP Pulse Ox 94.9 F L 98 H 24 76/43 91 02/03/21 05:19 02/03/21 08:28 02/03/21 08:28 02/03/21 05:19 02/03/21 08:28 General appearance: Present: no acute distress HEART Score - HEART Score Troponin: Troponin T < 0.010 ng/mL (0.00-0.029) 01/31/21 09:58 Results - Labs CBC & Chem 7: 02/03/21 05:20 02/03/21 05:20 Labs: Laboratory Last Values WBC 7.7 K/mm3 (4.5-11.0) 02/03/21 05:20 RBC 2.46 M/mm3 (3.65-5.03) L 02/03/21 05:20 Hgb 8.1 gm/dl (10.1-14.3) L 02/03/21 05:20 Hct 24.0 % (30.3-42.9) L 02/03/21 05:20 MCV 97 fl (79-97) 02/03/21 05:20 MCH 33 pg (28-32) H 02/03/21 05:20 MCHC 34 % (30-34) 02/03/21 05:20 RDW 14.8 % (13.2-15.2) 02/03/21 05:20 Plt Count 136 K/mm3 (140-440) L 02/03/21 05:20 Lymph % (Auto) 6.6 % (13.4-35.0) L 02/01/21 08:10 [place] % (Auto) 4.9 % (0.0-7.3) 02/01/21 08:10 Eos % (Auto) 0.4 % (0.0-4.3) 02/01/21 08:10 Baso % (Auto) 0.2 % (0.0-1.8) 02/01/21 08:10 Lymph # (Auto) 0.6 K/mm3 (1.2-5.4) L 02/01/21 08:10 [place] # (Auto) 0.4 K/mm3 (0.0-0.8) 02/01/21 08:10 Eos # (Auto) 0.0 K/mm3 (0.0-0.4) 02/01/21 08:10 Baso # (Auto) 0.0 K/mm3 (0.0-0.1) 02/01/21 08:10 Add Manual Diff Complete 01/31/21 09:58 Total Counted 100 01/31/21 09:58 Seg Neutrophils % 87.9 % (40.0-70.0) H 02/01/21 08:10 Seg Neuts % (Manual) 46.0 % (40.0-70.0) 01/31/21 09:58 Band Neutrophils % 14.0 % 01/31/21 09:58 Lymphocytes % (Manual) 34.0 % (13.4-35.0) 01/31/21 09:58 Reactive Lymphs % (Man) 1.0 % 01/31/21 09:58 Monocytes % (Manual) 5.0 % (0.0-7.3) 01/31/21 09:58 Nucleated RBC % Not Reportable 01/31/21 09:58 Seg Neutrophils # 7.8 K/mm3 (1.8-7.7) H 02/01/21 08:10 Seg Neutrophils # Man 0.7 K/mm3 (1.8-7.7) L 01/31/21 09:58 Band Neutrophils # 0.2 K/mm3 01/31/21 09:58 Lymphocytes # (Manual) 0.5 K/mm3 (1.2-5.4) L 01/31/21 09:58 Abs React Lymphs (Man) 0.0 K/mm3 01/31/21 09:58 Monocytes # (Manual) 0.1 K/mm3 (0.0-0.8) 01/31/21 09:58 Eosinophils # (Manual) 0.0 K/mm3 (0.0-0.4) 01/31/21 09:58 Basophils # (Manual) 0.0 K/mm3 (0.0-0.1) 01/31/21 09:58 Metamyelocytes # 0.0 K/mm3 01/31/21 09:58 Myelocytes # 0.0 K/mm3 01/31/21 09:58 Promyelocytes # 0.0 K/mm3 01/31/21 09:58 Blast Cells # 0.0 K/mm3 01/31/21 09:58 WBC Morphology Not Reportable 01/31/21 09:58 Hypersegmented Neuts Not Reportable 01/31/21 09:58 Hyposegmented Neuts Not Reportable 01/31/21 09:58 Hypogranular Neuts Not Reportable 01/31/21 09:58 Smudge Cells Not Reportable 01/31/21 09:58 Toxic Granulation Not Reportable 01/31/21 09:58 Toxic Vacuolation Not Reportable 01/31/21 09:58 Dohle Bodies Not Reportable 01/31/21 09:58 Pelger-Huet Anomaly Not Reportable 01/31/21 09:58 Jamia Rods Not Reportable 01/31/21 09:58 Platelet Estimate Consistent w auto 01/31/21 09:58 Clumped Platelets Not Reportable 01/31/21 09:58 Plt Clumps, EDTA Not Reportable 01/31/21 09:58 Large Platelets Not Reportable 01/31/21 09:58 Giant Platelets Not Reportable 01/31/21 09:58 Platelet Satelliting Not Reportable 01/31/21 09:58 Plt Morphology Comment Not Reportable 01/31/21 09:58 RBC Morphology Not Reportable 01/31/21 09:58 Dimorphic RBCs Not Reportable 01/31/21 09:58 Polychromasia Not Reportable 01/31/21 09:58 Hypochromasia Few 01/31/21 09:58 Poikilocytosis Not Reportable 01/31/21 09:58 Anisocytosis Not Reportable 01/31/21 09:58 Microcytosis Not Reportable 01/31/21 09:58 Macrocytosis Not Reportable 01/31/21 09:58 Spherocytes Not Reportable 01/31/21 09:58 Pappenheimer Bodies Not Reportable 01/31/21 09:58 Sickle Cells Not Reportable 01/31/21 09:58 Target Cells Not Reportable 01/31/21 09:58 Tear Drop Cells Not Reportable 01/31/21 09:58 Ovalocytes Not Reportable 01/31/21 09:58 Helmet Cells Not Reportable 01/31/21 09:58 [place] Bodies Not Reportable 01/31/21 09:58 [place] Rings Not Reportable 01/31/21 09:58 Luis Cells Not Reportable 01/31/21 09:58 Bite Cells Not Reportable 01/31/21 09:58 Crenated Cell Not Reportable 01/31/21 09:58 Elliptocytes Not Reportable 01/31/21 09:58 Acanthocytes (Spur) Not Reportable 01/31/21 09:58 Rouleaux Not Reportable 01/31/21 09:58 Hemoglobin C Crystals Not Reportable 01/31/21 09:58 Schistocytes Not Reportable 01/31/21 09:58 Malaria parasites Not Reportable 01/31/21 09:58 ESR 40 mm/Hr (0-20) 01/31/21 09:58 Felice Bodies Not Reportable 01/31/21 09:58 Hem Pathologist Commnt No 01/31/21 09:58 PT 18.3 Sec. (12.2-14.9) H 01/31/21 09:58 INR 1.47 (0.87-1.13) H 01/31/21 09:58 APTT 25.1 Sec. (24.2-36.6) 01/31/21 09:58 D-Dimer 1611.25 ng/mlDDU (0-234) H 01/31/21 21:37 Sodium 143 mmol/L (137-145) 02/03/21 05:20 Potassium 4.0 mmol/L (3.6-5.0) 02/03/21 05:20 Chloride 104.0 mmol/L (98-107) 02/03/21 05:20 Carbon Dioxide 21 mmol/L (22-30) L D 02/03/21 05:20 Anion Gap 22 mmol/L 02/03/21 05:20 BUN 59 mg/dL (7-17) H 02/03/21 05:20 Creatinine 2.7 mg/dL (0.6-1.2) H 02/03/21 05:20 Estimated GFR 18 ml/min 02/03/21 05:20 BUN/Creatinine Ratio 22 % 02/03/21 05:20 Glucose 256 mg/dL (65-100) H 02/03/21 05:20 POC Glucose 220 mg/dL (70-105) H 02/03/21 05:54 Hemoglobin A1c 8.7 % (4-6) H 02/01/21 08:10 Lactic Acid 6.80 mmol/L (0.7-2.0) H* 01/31/21 09:58 Calcium 9.3 mg/dL (8.4-10.2) 02/03/21 05:20 Phosphorus 1.90 mg/dL (2.5-4.5) L 02/03/21 05:20 Magnesium 1.80 mg/dL (1.7-2.3) 01/31/21 09:58 Ferritin 573.6 ng/mL (10.0-200.0) H 01/31/21 21:37 Total Bilirubin < 0.20 mg/dL (0.1-1.2) 02/01/21 08:10 AST 127 units/L (5-40) H 02/01/21 08:10 ALT 37 units/L (7-56) 02/01/21 08:10 Alkaline Phosphatase 88 units/L (35-129) 02/01/21 08:10 Lactate Dehydrogenase 173 units/L (91-180) 01/31/21 21:37 Troponin T < 0.010 ng/mL (0.00-0.029) 01/31/21 09:58 C-Reactive Protein 19.30 mg/dL (0.00-1.30) H 01/31/21 21:37 NT-Pro-B Natriuret Pep 1763 pg/mL (0-900) H 01/31/21 09:58 Total Protein 5.4 g/dL (6.3-8.2) L 02/01/21 08:10 Albumin 2.7 g/dL (3.9-5) L 02/01/21 08:10 Albumin/Globulin Ratio 1.0 % 02/01/21 08:10 Lipase 13 units/L (13-60) 01/31/21 09:58 Procalcitonin 38.21 ng/mL (<0.15) 01/31/21 21:37 Urine Color Yellow (Yellow) 02/01/21 04:19 Urine Turbidity Cloudy (Clear) 02/01/21 04:19 Urine pH 5.0 (5.0-7.0) 02/01/21 04:19 Ur Specific [place] 1.016 (1.003-1.030) 02/01/21 04:19 Urine Protein 100 mg/dl mg/dL (Negative) 02/01/21 04:19 Urine Glucose (UA) >=500 mg/dL (Negative) 02/01/21 04:19 Urine Ketones 20 mg/dL (Negative) 02/01/21 04:19 Urine Blood Mod (Negative) 02/01/21 04:19 Urine Nitrite Neg (Negative) 02/01/21 04:19 Urine Bilirubin Neg (Negative) 02/01/21 04:19 Urine Urobilinogen < 2.0 mg/dL (<2.0) 02/01/21 04:19 Ur Leukocyte Esterase Neg (Negative) 02/01/21 04:19 Urine WBC (Auto) 14.0 /HPF (0.0-6.0) H 02/01/21 04:19 Urine RBC (Auto) 8.0 /HPF (0.0-6.0) 02/01/21 04:19 U Epithel Cells (Auto) 2.0 /HPF (0-13.0) 02/01/21 04:19 Urine Bacteria (Auto) 1+ /HPF (Negative) 02/01/21 04:19 Amorphous Crystals 1+ 02/01/21 04:19 Coronavirus (PCR) Negative (Negative) 01/31/21 Unknown Microbiology: Microbiology 02/01/21 04:30 Urine,Catheterized - Straight Catheter Urine Culture - Preliminary 01/31/21 09:58 Peripheral/Venous Blood Culture - Preliminary NO GROWTH AFTER 48 HOURS 01/31/21 09:58 Peripheral/Venous Blood Culture - Preliminary NO GROWTH AFTER 48 HOURS Verma/IV: Voiding Method Incontinent Active Medications - Current Medications Current Medications: Generic Name Dose Route Start Last Admin Trade Name Freq PRN Reason Stop Dose Admin Acetaminophen 650 mg 01/31/21 23:21 Acetaminophen 325 Mg Tab PO Q4H PRN Pain MILD(1-3)/Fever >100.5/RIVERA Lipase/Protease/Amylase 1 each 02/01/21 07:14 Lipase 10,500/Protease 25,000/Amylase 43,750 (Units) Dr Braun FEEDTUBE PRN PRN For Clogged Feeding Tube Apixaban 2.5 mg 01/31/21 23:30 02/02/21 22:31 Apixaban 2.5 Mg Tab PO 2.5 mg BID SHAHLA Administration Ascorbic Acid 500 mg 02/01/21 10:00 02/02/21 09:25 Ascorbic Acid 500 Mg Tab PO 500 mg DAILY SHAHLA Administration Citalopram Hydrobromide 20 mg 02/01/21 10:00 02/02/21 09:25 Citalopram 20 Mg Tab PO 20 mg QDAY SHAHLA Administration Famotidine 10 mg 02/02/21 10:00 02/02/21 22:31 Famotidine 10 Mg Tab PO 10 mg BID SHAHLA Administration Hydromorphone HCl 0.5 mg 01/31/21 23:21 Hydromorphone 1 Mg/1 Ml Inj IV Q3H PRN Pain , Severe (7-10) Sodium Bicarbonate 100 meq/ 1,100 mls @ 100 mls/hr 02/01/21 12:00 02/03/21 05:32 Sterile Water IV 100 mls/hr DIRECT SHAHLA Administration Cefepime HCl 2 gm in 100 mls @ 200 mls/hr 02/02/21 10:00 02/02/21 09:25 Cefepime/Ns 2 Gm/100 Ml IV 02/05/21 10:59 200 mls/hr Q24HR SHAHLA Administration Protocol Sodium Phosphate 30 mmol/ 510 mls @ 85 mls/hr 02/03/21 10:00 Sodium Chloride IV 02/03/21 15:59 ONCE ONE Insulin Glargine 30 units 02/03/21 12:00 Insulin Glargine 100 Units/Ml SUB-Q QPM SHAHLA Insulin Human Lispro 0 unit 01/31/21 23:45 02/03/21 05:59 Insulin Lispro 100 Unit/Ml SUB-Q 4 unit Q4HR SHAHLA Administration Protocol Insulin Human Lispro 5 unit 02/03/21 08:30 Insulin Lispro 100 Unit/Ml SUB-Q AC SHAHLA Morphine Sulfate 2 mg 01/31/21 23:21 02/02/21 05:11 Morphine 2 Mg/1 Ml Inj IV 2 mg Q4H PRN Administration Pain, Moderate (4-6) Ondansetron HCl 4 mg 01/31/21 23:21 Ondansetron 4 Mg/2 Ml Inj IV Q8H PRN Nausea And Vomiting Simple Syrup 15 ml 02/01/21 07:14 Simple Syrup 15 Ml FEEDTUBE PRN PRN Hypoglycemia Simple Syrup 30 ml 02/01/21 07:14 Simple Syrup 15 Ml FEEDTUBE PRN PRN Hypoglycemia Sodium Bicarbonate 325 mg 02/01/21 07:14 Sodium Bicarbonate 325 Mg Tab FEEDTUBE PRN PRN For Clogged Feeding Tube Sodium Chloride 10 ml 02/01/21 10:00 02/02/21 22:32 Sodium Chloride 0.9% 10 Ml Flush Syringe IV 10 ml BID SHAHLA Administration Sodium Chloride 10 ml 01/31/21 23:21 Sodium Chloride 0.9% 10 Ml Flush Syringe IV PRN PRN LINE FLUSH Nutrition/Malnutrition Assess - Dietary Evaluation Nutrition/Malnutrition Findings: Nutrition Notes Start: 02/01/21 10:35 Freq: Status: Active Protocol: Document 02/01/21 10:35 CW (Rec: 02/01/21 10:58 CW [id number]) Nutrition Notes Need for Assessment generated from: MD Order,promotion writer Initial or Follow up Assessment Current Diagnosis CKD(stage I-IV),Diabetes, Sepsis,Hypertension, Respiratory Failure Other Pertinent Diagnosis Dysphagia, AMS, PNA, metabolic acidosis, malnutrition Current Diet TF Labs/Tests BUN 36 Cr 1.6 BG 122 a1C 8.7 Pertinent Medications Humalog NS at 75 ml/hr KCl 30 mEq Kdur Height 5 ft 2 in Weight 68.039 kg Usual Body Weight 45 kg [place] Body Weight (kg) 50.00 BMI 27.4 Weight change and time frame 33.7% weight increase x 1 month Weight Status Overweight Subjective/Other Information MD order for Write manage TF feeding, RN screen for hx of TF, and hx of dyspagia. On previous visits, has been on Glucerna TF. Pt is also nonverbal. Recommend restarting TF regimen. Pt also has a hx of malnutrition. Large weight increase likely inaccurate. Will monitor for stable weight as well. TF running at decreased rate to protect renal functioning d/t elevated BUN and Cr. Recommend increaseing to 55 ml/hr when renal functioning improves Burn Absent Trauma Absent GI Symptoms None Difficulty In Swallowing,Chewing Current % PO Negligible Minimum of two criteria No physical signs of malnutrition #1 Nutrition Diagnosis No nutrition diagnosis at this time Is patient on ventilator? No Is Patient Ambulatory and/or Out of Bed Yes REE-([facility]-ambulatory/OOB) [ 1597.232 [id number]] Calculation Used for Recommendations [facility] Additional Notes protein needs:41 - 54g (0.6 - 0.8g/kgBW) fluid needs: 1 ml/kcal or per MD Nutrition Intervention Change Diet Order: Initiate TF Regimen Nutrition Support: Glucerna 1.2 at 45 ml/hr with a free water flush of 75 ml q4h Kcal 1,296 Protein (gm) 65 Fluid (mL) 876 Goal #1 Meet at least 75% of kcal and protein needs via TF Anticipated Discharge Needs: Glucerna 1.2 at 50 ml/hr with a free water flush of 85 ml q4h Follow-Up By: 02/03/21 Additional Comments F/U for start, TF tolerance, renal related labs
--- NOTE | 2021-02-03 10:13 | Progress Note ---
Assessment and Plan 1. Acute kidney injury: Vasomotor RACH superimposed on CKD in the setting of sepsis. ATN likely. CT abdomen negative for hydro. Urine studies ordered. Monitor renal function. Creatinine level increasing. Bladder scan ordered. Avoid nephrotoxic agents. Meds dosage based on GFR. 2. FEN: Anion-gap metabolic acidosis, on Sod bicarb drip, monitor. Hypokalemia, improved, monitor. Replete Phos. Monitor lytes and volume status. 3. Sepsis, POA: Likely 2/2 PNA. Covid test negative. Followed by ID. 4. Bilateral PNA, POA: Abx. Covid test negative. 5. DM: Monitor. 6. Dysphagia: Patient has PEG tube. 7. Anemia: Monitor. 8. HTN: Monitor BP. 9. Metabolic encephalopathy, POA. Subjective: Patient was seen and examined at the bedside. General Appearance: General appearance: appears stated age, not in distress, appears chronically ill HEENT: ATNC, CAITY Neck: Trachea midline Respiratory: coarse breath sounds Cardiology: regular, S1S2, no murmur Gastrointestinal: normoactive bowel sounds, not tender, not distended, PEG tube noted Integumentary: no rash, warm and dry Neurologic: lethargic, not following any command, non-verbal Ext: no edema Subjective Date of service: 02/03/21 Objective - Vital Signs Vital signs: Vital Signs - 12hr 02/03/21 02/03/21 05:19 08:28 Temperature 94.9 F L Pulse Rate 100 H Pulse Rate [ 98 H Right Radial] Respiratory 20 24 Rate Blood Pressure 76/43 O2 Sat by Pulse 91 91 Oximetry - Lab 02/03/21 05:20 02/03/21 05:20 Most recent lab results Calcium 9.3 mg/dL (8.4-10.2) 02/03/21 05:20 Phosphorus 1.90 mg/dL (2.5-4.5) L 02/03/21 05:20 Magnesium 1.80 mg/dL (1.7-2.3) 01/31/21 09:58 Medications & Allergies - Medications Allergies/Adverse Reactions: Allergies No Known Allergies Allergy (Verified 02/26/20 10:24) Home Medications: Home Medications Medication Instructions Recorded Confirmed Last Taken Type Citalopram [Celexa] 20 mg PO QDAY 01/25/20 02/01/21 Unknown History Pravastatin [Pravachol] 40 mg PO QHS 01/25/20 02/01/21 Unknown History Acetaminophen [Mapap] 650 mg PO BID PRN 02/26/20 02/01/21 Unknown History Ascorbic Acid [Vitamin C with Chetna 500 mg PO DAILY 02/26/20 02/01/21 Unknown History Hips] Glimepiride [Amaryl] 4 mg PO QAM 02/26/20 02/01/21 Unknown History Insulin Lispro [Humalog] 5 units SQ AC 02/26/20 02/01/21 Unknown History Multivit-Min/Ferrous Fumarate 15 mg PO DAILY 02/26/20 02/01/21 Unknown History [Multivitamin with Minerals Tab] Apixaban [Eliquis] 2.5 mg PO BID #30 tablet 03/01/20 02/01/21 Unknown Rx Famotidine [Pepcid] 20 mg PO QDAY #30 tablet 11/26/20 02/01/21 Unknown Rx Insulin Glargine [Lantus VIAL] 30 units SUB-Q QHS #10 units 11/26/20 02/01/21 Unknown Rx Lipase/Protease/Amylase [Pancreaze 1 each FEEDTUBE PRN PRN capsule 11/26/20 02/01/21 Unknown Rx 10,500 Unit] Insulin Regular, Human [HumuLIN R] 0 units SUB-Q Q6HR units 01/10/21 02/01/21 Unknown Rx Simple Syrup 15 ml FEEDTUBE PRN PRN oral.liqd 01/10/21 02/01/21 Unknown Rx Simple Syrup 30 ml FEEDTUBE PRN PRN oral.liqd 01/10/21 02/01/21 Unknown Rx Sodium Bicarbonate 325 mg FEEDTUBE PRN PRN tablet 01/10/21 02/01/21 Unknown Rx levoFLOXacin [Levaquin] 750 mg PO QDAY #10 tablet 01/10/21 02/01/21 Unknown Rx Active Medications: Generic Name Dose Route Start Last Admin Trade Name Freq PRN Reason Stop Dose Admin Acetaminophen 650 mg 01/31/21 23:21 Acetaminophen 325 Mg Tab PO Q4H PRN Pain MILD(1-3)/Fever >100.5/RIVERA Lipase/Protease/Amylase 1 each 02/01/21 07:14 Lipase 10,500/Protease 25,000/Amylase 43,750 (Units) Dr Braun FEEDTUBE PRN PRN For Clogged Feeding Tube Apixaban 2.5 mg 01/31/21 23:30 02/02/21 22:31 Apixaban 2.5 Mg Tab PO 2.5 mg BID SHAHLA Administration Ascorbic Acid 500 mg 02/01/21 10:00 02/02/21 09:25 Ascorbic Acid 500 Mg Tab PO 500 mg DAILY SHAHLA Administration Citalopram Hydrobromide 20 mg 02/01/21 10:00 02/02/21 09:25 Citalopram 20 Mg Tab PO 20 mg QDAY SHAHLA Administration Famotidine 10 mg 02/02/21 10:00 02/02/21 22:31 Famotidine 10 Mg Tab PO 10 mg BID SHAHLA Administration Hydromorphone HCl 0.5 mg 01/31/21 23:21 Hydromorphone 1 Mg/1 Ml Inj IV Q3H PRN Pain , Severe (7-10) Sodium Bicarbonate 100 meq/ 1,100 mls @ 100 mls/hr 02/01/21 12:00 02/03/21 05:32 Sterile Water IV 100 mls/hr DIRECT SHAHLA Administration Cefepime HCl 2 gm in 100 mls @ 200 mls/hr 02/02/21 10:00 02/02/21 09:25 Cefepime/Ns 2 Gm/100 Ml IV 02/05/21 10:59 200 mls/hr Q24HR SHAHLA Administration Protocol Sodium Phosphate 30 mmol/ 510 mls @ 85 mls/hr 02/03/21 10:00 Sodium Chloride IV 02/03/21 15:59 ONCE ONE Insulin Glargine 30 units 02/03/21 12:00 Insulin Glargine 100 Units/Ml SUB-Q QPM SHAHLA Insulin Human Lispro 0 unit 01/31/21 23:45 02/03/21 05:59 Insulin Lispro 100 Unit/Ml SUB-Q 4 unit Q4HR SHAHLA Administration Protocol Insulin Human Lispro 5 unit 02/03/21 08:30 Insulin Lispro 100 Unit/Ml SUB-Q AC SHAHLA Morphine Sulfate 2 mg 01/31/21 23:21 02/02/21 05:11 Morphine 2 Mg/1 Ml Inj IV 2 mg Q4H PRN Administration Pain, Moderate (4-6) Ondansetron HCl 4 mg 01/31/21 23:21 Ondansetron 4 Mg/2 Ml Inj IV Q8H PRN Nausea And Vomiting Simple Syrup 15 ml 02/01/21 07:14 Simple Syrup 15 Ml FEEDTUBE PRN PRN Hypoglycemia Simple Syrup 30 ml 02/01/21 07:14 Simple Syrup 15 Ml FEEDTUBE PRN PRN Hypoglycemia Sodium Bicarbonate 325 mg 02/01/21 07:14 Sodium Bicarbonate 325 Mg Tab FEEDTUBE PRN PRN For Clogged Feeding Tube Sodium Chloride 10 ml 02/01/21 10:00 02/02/21 22:32 Sodium Chloride 0.9% 10 Ml Flush Syringe IV 10 ml BID SHAHLA Administration Sodium Chloride 10 ml 01/31/21 23:21 Sodium Chloride 0.9% 10 Ml Flush Syringe IV PRN PRN LINE FLUSH
[2021-02-03] MEDS: FAMOTIDINE 10 MG TAB PO SCH ×2 (11:11→22:05)
[2021-02-03] MEDS: ASCORBIC ACID 500 MG TAB PO SCH (11:11)
[2021-02-03] MEDS: CEFEPIME/NS 2 GM/100 ML 2 GM/100 ML BAG IV SCH (11:11)
[2021-02-03] MEDS: APIXABAN 2.5 MG TAB PO SCH ×2 (11:12→22:02)
[2021-02-03] MEDS: CITALOPRAM 20 MG TAB PO SCH (11:12)
[2021-02-03] MEDS: INSULIN GLARGINE 100 UNITS/ML SUB-Q SCH (11:28)
--- NOTE | 2021-02-03 13:38 | Progress Note ---
Assessment and Plan Cultures: Blood culture no growth so far Covid PCR: Negative A/P: 55-year-old female past medical history hypertension, dysphagia with PEG tube in place, diabetes with frequent DKA admitted with bilateral pneumonia #Acute sepsis: no fever for 48 hours. Likely secondary to pneumonia #Acute respiratory failure: Saturations down to the 80s on admission, improving. Secondary to pneumonia #Bilateral pneumonia/recurrent pneumonia: Negative Covid PCR. Elevated procalcitonin setting of RACH, probable bacterial pneumonia at this point. Patient with previous bilateral pneumonia November 2020. Concerns of aspiration. #Chronic severe gingivitis #RACH: Renally dose antibiotics. #Diabetes: tight glycemic control for best outcomes. #Pyuria: With history of a kidney stone. Recs: -Continue empiric renally dosed cefepime. Follow-up 5 days. -Follow-up cultures -Aspiration precautions -Dental evaluation post discharge MD [facility] ([facility]) Office [phone] Objective - Constitutional Vitals: Vital Signs Temp Pulse Resp BP Pulse Ox 94.9 F L 98 H 24 76/43 91 02/03/21 05:19 02/03/21 08:28 02/03/21 08:28 02/03/21 05:19 02/03/21 08:28 Temperature -Last 24 Hours Temperature 94.9 F Temperature 98.3 F Temperature 99.5 F - Labs CBC & Chem 7: 02/03/21 05:20 02/03/21 05:20 Labs: Abnormal lab results 02/02/21 02/02/21 02/02/21 Range/Units 16:05 22:26 23:22 RBC (3.65-5.03) M/mm3 Hgb (10.1-14.3) gm/dl Hct (30.3-42.9) % MCH (28-32) pg Plt Count (140-440) K/mm3 Carbon Dioxide (22-30) mmol/L BUN (7-17) mg/dL Creatinine (0.6-1.2) mg/dL Glucose 582 H* (65-100) mg/dL POC Glucose 314 H 506 H (70-105) mg/dL Phosphorus (2.5-4.5) mg/dL 02/03/21 02/03/21 02/03/21 Range/Units 04:04 05:20 05:20 RBC 2.46 L (3.65-5.03) M/mm3 Hgb 8.1 L (10.1-14.3) gm/dl Hct 24.0 L (30.3-42.9) % MCH 33 H (28-32) pg Plt Count 136 L (140-440) K/mm3 Carbon Dioxide (22-30) mmol/L BUN (7-17) mg/dL Creatinine (0.6-1.2) mg/dL Glucose (65-100) mg/dL POC Glucose 279 H (70-105) mg/dL Phosphorus 1.90 L (2.5-4.5) mg/dL 02/03/21 02/03/21 02/03/21 Range/Units 05:20 05:54 10:21 RBC (3.65-5.03) M/mm3 Hgb (10.1-14.3) gm/dl Hct (30.3-42.9) % MCH (28-32) pg Plt Count (140-440) K/mm3 Carbon Dioxide 21 L D (22-30) mmol/L BUN 59 H (7-17) mg/dL Creatinine 2.7 H (0.6-1.2) mg/dL Glucose 256 H (65-100) mg/dL POC Glucose 220 H 458 H (70-105) mg/dL Phosphorus (2.5-4.5) mg/dL
[2021-02-03] MEDS ORDERED: DEXTROSE 50% IN WATER (25GM) 50 ML SYRINGE IV ONE (21:48)
[2021-02-03] MEDS ORDERED: DEXTROSE 50% IN WATER (25GM) 50 ML SYRINGE IV STA (21:59)
[2021-02-04] MEDS: SIMPLE SYRUP 15 ML FEEDTUBE PRN (02:39)
[2021-02-04] MEDS: INSULIN LISPRO 100 UNIT/ML SUB-Q SCH ×9 (02:50→21:35)
[2021-02-04] MEDS ORDERED: DEXTROSE 50% IN WATER (25GM) 50 ML SYRINGE IV ONE (03:45)
[2021-02-04] MEDS ORDERED: DEXTROSE 50% IN WATER (25GM) 50 ML SYRINGE IV STA (03:54)
[2021-02-04] MEDS: SODIUM BICARBONATE 100 MEQ in WATER FOR INJECTION (PF) 1,000 ML IV SCH (06:08)
[2021-02-04 06:28] LABS: Calcium 8.3 mg/dL (8.4-10.2)
--- NOTE | 2021-02-04 08:54 | Progress Note ---
Assessment and Plan 1. Acute kidney injury: Vasomotor RACH superimposed on CKD in the setting of sepsis / hypotension. ATN likely. CT abdomen negative for hydro. Urine studies ordered. Monitor renal function. Creatinine level increasing. Bladder scan X 2 negative. Avoid nephrotoxic agents. Meds dosage based on GFR. Monitor for [employer] needs. 2. FEN: Anion-gap metabolic acidosis, on Sod bicarb drip, monitor. Hypokalemia, improved, monitor. Monitor lytes and volume status. 3. Sepsis, POA: Likely 2/2 PNA. Covid test negative. Followed by ID. IV fluid bolus ordered. 4. Bilateral PNA, POA: Abx. Covid test negative. 5. DM: Monitor. 6. Dysphagia: Patient has PEG tube. 7. Anemia: Monitor. 8. HTN: Monitor BP. 9. Metabolic encephalopathy, POA. Subjective: Patient was seen and examined at the bedside. General Appearance: General appearance: appears stated age, not in distress, appears chronically ill HEENT: ATNC, CAITY Neck: Trachea midline Respiratory: ctab Cardiology: regular, S1S2, no murmur Gastrointestinal: normoactive bowel sounds, not tender, not distended, PEG tube noted Integumentary: no rash, warm and dry Neurologic: lethargic, not following any command, non-verbal Ext: no edema Subjective Date of service: 02/04/21 Objective - Vital Signs Vital signs: Vital Signs - 12hr 02/03/21 02/03/21 21:48 22:00 Temperature 98.7 F Pulse Rate 98 H Respiratory 22 Rate Blood Pressure 85/49 O2 Sat by Pulse 96 96 Oximetry - Lab 02/03/21 05:20 02/04/21 05:57 Most recent lab results Calcium 8.3 mg/dL (8.4-10.2) L 02/04/21 05:57 Phosphorus 2.70 mg/dL (2.5-4.5) D 02/04/21 05:57 Magnesium 1.80 mg/dL (1.7-2.3) 01/31/21 09:58 Medications & Allergies - Medications Allergies/Adverse Reactions: Allergies No Known Allergies Allergy (Verified 02/26/20 10:24) Home Medications: Home Medications Medication Instructions Recorded Confirmed Last Taken Type Citalopram [Celexa] 20 mg PO QDAY 01/25/20 02/01/21 Unknown History Pravastatin [Pravachol] 40 mg PO QHS 01/25/20 02/01/21 Unknown History Acetaminophen [Mapap] 650 mg PO BID PRN 02/26/20 02/01/21 Unknown History Ascorbic Acid [Vitamin C with Chetna 500 mg PO DAILY 02/26/20 02/01/21 Unknown History Hips] Glimepiride [Amaryl] 4 mg PO QAM 02/26/20 02/01/21 Unknown History Insulin Lispro [Humalog] 5 units SQ AC 02/26/20 02/01/21 Unknown History Multivit-Min/Ferrous Fumarate 15 mg PO DAILY 02/26/20 02/01/21 Unknown History [Multivitamin with Minerals Tab] Apixaban [Eliquis] 2.5 mg PO BID #30 tablet 03/01/20 02/01/21 Unknown Rx Famotidine [Pepcid] 20 mg PO QDAY #30 tablet 11/26/20 02/01/21 Unknown Rx Insulin Glargine [Lantus VIAL] 30 units SUB-Q QHS #10 units 11/26/20 02/01/21 Unknown Rx Lipase/Protease/Amylase [Pancreaze 1 each FEEDTUBE PRN PRN capsule 11/26/20 02/01/21 Unknown Rx 10,500 Unit] Insulin Regular, Human [HumuLIN R] 0 units SUB-Q Q6HR units 01/10/21 02/01/21 Unknown Rx Simple Syrup 15 ml FEEDTUBE PRN PRN oral.liqd 01/10/21 02/01/21 Unknown Rx Simple Syrup 30 ml FEEDTUBE PRN PRN oral.liqd 01/10/21 02/01/21 Unknown Rx Sodium Bicarbonate 325 mg FEEDTUBE PRN PRN tablet 01/10/21 02/01/21 Unknown Rx levoFLOXacin [Levaquin] 750 mg PO QDAY #10 tablet 01/10/21 02/01/21 Unknown Rx Active Medications: Generic Name Dose Route Start Last Admin Trade Name Freq PRN Reason Stop Dose Admin Acetaminophen 650 mg 01/31/21 23:21 Acetaminophen 325 Mg Tab PO Q4H PRN Pain MILD(1-3)/Fever >100.5/RIVERA Lipase/Protease/Amylase 1 each 02/01/21 07:14 Lipase 10,500/Protease 25,000/Amylase 43,750 (Units) Dr Braun FEEDTUBE PRN PRN For Clogged Feeding Tube Apixaban 2.5 mg 01/31/21 23:30 02/03/21 22:02 Apixaban 2.5 Mg Tab PO 2.5 mg BID SHAHLA Administration Ascorbic Acid 500 mg 02/01/21 10:00 02/03/21 11:11 Ascorbic Acid 500 Mg Tab PO 500 mg DAILY SHAHLA Administration Citalopram Hydrobromide 20 mg 02/01/21 10:00 02/03/21 11:12 Citalopram 20 Mg Tab PO 20 mg QDAY SHAHLA Administration Famotidine 10 mg 02/02/21 10:00 02/03/21 22:05 Famotidine 10 Mg Tab PO 10 mg BID SHAHLA Administration Hydromorphone HCl 0.5 mg 01/31/21 23:21 Hydromorphone 1 Mg/1 Ml Inj IV Q3H PRN Pain , Severe (7-10) Sodium Bicarbonate 100 meq/ 1,100 mls @ 100 mls/hr 02/01/21 12:00 02/04/21 06:08 Sterile Water IV 100 mls/hr DIRECT SHAHLA Administration Cefepime HCl 2 gm in 100 mls @ 200 mls/hr 02/02/21 10:00 02/03/21 11:11 Cefepime/Ns 2 Gm/100 Ml IV 02/05/21 10:59 200 mls/hr Q24HR SHAHLA Administration Protocol Insulin Glargine 30 units 02/03/21 12:00 02/03/21 11:28 Insulin Glargine 100 Units/Ml SUB-Q 30 units QPM SHAHLA Administration Insulin Human Lispro 0 unit 01/31/21 23:45 02/04/21 07:02 Insulin Lispro 100 Unit/Ml SUB-Q Not Given Q4HR [facility] Protocol Insulin Human Lispro 5 unit 02/03/21 08:30 02/04/21 08:29 Insulin Lispro 100 Unit/Ml SUB-Q Not Given AC [facility] Morphine Sulfate 2 mg 01/31/21 23:21 02/02/21 05:11 Morphine 2 Mg/1 Ml Inj IV 2 mg Q4H PRN Administration Pain, Moderate (4-6) Ondansetron HCl 4 mg 01/31/21 23:21 Ondansetron 4 Mg/2 Ml Inj IV Q8H PRN Nausea And Vomiting Simple Syrup 15 ml 02/01/21 07:14 Simple Syrup 15 Ml FEEDTUBE PRN PRN Hypoglycemia Simple Syrup 30 ml 02/01/21 07:14 02/04/21 02:39 Simple Syrup 15 Ml FEEDTUBE 30 ml PRN PRN Administration Hypoglycemia Sodium Bicarbonate 325 mg 02/01/21 07:14 Sodium Bicarbonate 325 Mg Tab FEEDTUBE PRN PRN For Clogged Feeding Tube Sodium Chloride 10 ml 02/01/21 10:00 02/03/21 22:03 Sodium Chloride 0.9% 10 Ml Flush Syringe IV 10 ml BID SHAHLA Administration Sodium Chloride 10 ml 01/31/21 23:21 Sodium Chloride 0.9% 10 Ml Flush Syringe IV PRN PRN LINE FLUSH
--- NOTE | 2021-02-04 10:09 | Progress Note ---
Assessment and Plan Assessment and plan: 55-year-old female patient with significant past medical history of dysphagia status post PEG diabetes mellitus uncontrolled with frequent DKA, hypertension, Bad oral hygiene with severe chronic gingivitis was admitted with severe sepsis secondary to bilateral pneumonia and acute kidney injury, Covid test is negative Evaluated by nephrology and ID currently receiving antibiotics cefepime, PICC line patient is severely dehydrated with cachexia, patient is minimally communicative, with poor prognosis -- Sepsis with hypotension Current Visit: Yes Status: Acute Secondary to bilateral pneumonia and severe gingivitis Continue IV fluids, supportive care, and IV antibiotics-cefepime and vancomycin per ID Patient is DNR and comfort care --Bilateral pneumonia; IV antibiotics-cefepime and vancomycin per ID Patient is DNR and comfort care. --Chronic gingivitis; Very poor oral hygiene Antibiotics, oral care Patient needs to see dentist upon discharge Dental services not available in the hospital --Acute toxic metabolic encephalopathy Current Visit: No Status: Acute Secondary to sepsis, severe malnutrition, underlying disease process. Continue supportive care, treat the underlying cause --Severe malnutrition; Nutrition supplements, nutrition consult, supportive care. Treat the underlying cause --History of dysphagia; status post PEG PEG tube feeding, PEG care -- Acute hypoxemic respiratory failure Current Visit: Yes Status: Acute Requiring supplemental oxygen Due to bilateral pneumonia, Sepsis Home O2 evaluation prior to discharge. --Diabetes mellitus; Accu-Chek sliding scale coverage ADA diet and long-acting insulin as needed --UTI/pyuria Continue empiric antibiotics. Follow cultures. Plenty of fluids IV and oral --DVT prophylaxis Current Visit: Yes Status: Acute On heparin and GI prophylaxis --DNR status; --Discharge planning issues Current Visit: Yes Status: Acute Plan to address problem: Patient is DNR and family wants only comfort measures and IV antibiotics No aggressive measures like pressors and intubation and CPR We will closely monitor the patient and adjust the management as noted Please call family and update patient's condition tomorrow Brief history and daily hospital course; 02/01/21 Patient with acute resp failure, bilateral pneumonia, encephalopathy. To r/o Covid- 19 infection. Continue iv Antibiotics. ID Physician consulted. Resume tube feeds Patient has DNR code status. Consulted Nephrology for RACH with Cr 1.6 02/02/21 Patient with acute respiratory failure, bilateral pneumonia Negative Covid-19 test Worse renal function Cr 2.2 Nephrology following 02/03/21 Patient sent in from SNF for fever and low oxygen saturation. She is diagnosed with acute respiratory failure due to bilateral pneumonia. She is negative for Covid Sepsis due to pneumonia Acute toxic metabolic encephalopathy Also RACH which is worsening. Cr 2.7 today. I discussed with Dr. Bryan Hypophosphatemia: replace iv DM uncontrolled : Increase Insuilin dose DNR status History Interval history: I have seen and examined the patient at the bedside Patient's chart and medications reviewed Patient is noncommunicative Chronically ill looking cachectic emaciated No new overnight events reported by the nursing Vital signs noted Hospitalist Physical - Constitutional Vitals: Temp Pulse Resp BP Pulse Ox 98.7 F 98 H 22 85/49 96 02/03/21 21:48 02/03/21 21:48 02/03/21 21:48 02/03/21 21:48 02/03/21 22:00 General appearance: Present: mild distress, cachectic, other (Chronically ill looking cachectic emaciated) - EENT Eyes: Present: PERRL, EOM intact - Neck Neck: Present: supple, normal ROM - Respiratory Respiratory effort: normal Respiratory: bilateral: diminished, rhonchi, negative: rales, wheezing - Cardiovascular Rhythm: regular Heart Sounds: Present: S1 & S2 - Extremities Extremities: no ischemia, No edema - Abdominal General gastrointestinal: soft, non-tender, non-distended, normal bowel sounds - Integumentary Integumentary: Present: clear, warm - Psychiatric Psychiatric: appropriate mood/affect, cooperative - Neurologic Neurologic: CNII-XII intact, moves all extremities HEART Score - HEART Score Troponin: Troponin T < 0.010 ng/mL (0.00-0.029) 01/31/21 09:58 Results - Labs CBC & Chem 7: 02/03/21 05:20 02/04/21 05:57 Labs: Laboratory Last Values WBC 7.7 K/mm3 (4.5-11.0) 02/03/21 05:20 RBC 2.46 M/mm3 (3.65-5.03) L 02/03/21 05:20 Hgb 8.1 gm/dl (10.1-14.3) L 02/03/21 05:20 Hct 24.0 % (30.3-42.9) L 02/03/21 05:20 MCV 97 fl (79-97) 02/03/21 05:20 MCH 33 pg (28-32) H 02/03/21 05:20 MCHC 34 % (30-34) 02/03/21 05:20 RDW 14.8 % (13.2-15.2) 02/03/21 05:20 Plt Count 136 K/mm3 (140-440) L 02/03/21 05:20 Lymph % (Auto) 6.6 % (13.4-35.0) L 02/01/21 08:10 Sac % (Auto) 4.9 % (0.0-7.3) 02/01/21 08:10 Eos % (Auto) 0.4 % (0.0-4.3) 02/01/21 08:10 Baso % (Auto) 0.2 % (0.0-1.8) 02/01/21 08:10 Lymph # (Auto) 0.6 K/mm3 (1.2-5.4) L 02/01/21 08:10 Sac # (Auto) 0.4 K/mm3 (0.0-0.8) 02/01/21 08:10 Eos # (Auto) 0.0 K/mm3 (0.0-0.4) 02/01/21 08:10 Baso # (Auto) 0.0 K/mm3 (0.0-0.1) 02/01/21 08:10 Add Manual Diff Complete 01/31/21 09:58 Total Counted 100 01/31/21 09:58 Seg Neutrophils % 87.9 % (40.0-70.0) H 02/01/21 08:10 Seg Neuts % (Manual) 46.0 % (40.0-70.0) 01/31/21 09:58 Band Neutrophils % 14.0 % 01/31/21 09:58 Lymphocytes % (Manual) 34.0 % (13.4-35.0) 01/31/21 09:58 Reactive Lymphs % (Man) 1.0 % 01/31/21 09:58 Monocytes % (Manual) 5.0 % (0.0-7.3) 01/31/21 09:58 Nucleated RBC % Not Reportable 01/31/21 09:58 Seg Neutrophils # 7.8 K/mm3 (1.8-7.7) H 02/01/21 08:10 Seg Neutrophils # Man 0.7 K/mm3 (1.8-7.7) L 01/31/21 09:58 Band Neutrophils # 0.2 K/mm3 01/31/21 09:58 Lymphocytes # (Manual) 0.5 K/mm3 (1.2-5.4) L 01/31/21 09:58 Abs React Lymphs (Man) 0.0 K/mm3 01/31/21 09:58 Monocytes # (Manual) 0.1 K/mm3 (0.0-0.8) 01/31/21 09:58 Eosinophils # (Manual) 0.0 K/mm3 (0.0-0.4) 01/31/21 09:58 Basophils # (Manual) 0.0 K/mm3 (0.0-0.1) 01/31/21 09:58 Metamyelocytes # 0.0 K/mm3 01/31/21 09:58 Myelocytes # 0.0 K/mm3 01/31/21 09:58 Promyelocytes # 0.0 K/mm3 01/31/21 09:58 Blast Cells # 0.0 K/mm3 01/31/21 09:58 WBC Morphology Not Reportable 01/31/21 09:58 Hypersegmented Neuts Not Reportable 01/31/21 09:58 Hyposegmented Neuts Not Reportable 01/31/21 09:58 Hypogranular Neuts Not Reportable 01/31/21 09:58 Smudge Cells Not Reportable 01/31/21 09:58 Toxic Granulation Not Reportable 01/31/21 09:58 Toxic Vacuolation Not Reportable 01/31/21 09:58 Dohle Bodies Not Reportable 01/31/21 09:58 Pelger-Huet Anomaly Not Reportable 01/31/21 09:58 Jamia Rods Not Reportable 01/31/21 09:58 Platelet Estimate Consistent w auto 01/31/21 09:58 Clumped Platelets Not Reportable 01/31/21 09:58 Plt Clumps, EDTA Not Reportable 01/31/21 09:58 Large Platelets Not Reportable 01/31/21 09:58 Giant Platelets Not Reportable 01/31/21 09:58 Platelet Satelliting Not Reportable 01/31/21 09:58 Plt Morphology Comment Not Reportable 01/31/21 09:58 RBC Morphology Not Reportable 01/31/21 09:58 Dimorphic RBCs Not Reportable 01/31/21 09:58 Polychromasia Not Reportable 01/31/21 09:58 Hypochromasia Few 01/31/21 09:58 Poikilocytosis Not Reportable 01/31/21 09:58 Anisocytosis Not Reportable 01/31/21 09:58 Microcytosis Not Reportable 01/31/21 09:58 Macrocytosis Not Reportable 01/31/21 09:58 Spherocytes Not Reportable 01/31/21 09:58 Pappenheimer Bodies Not Reportable 01/31/21 09:58 Sickle Cells Not Reportable 01/31/21 09:58 Target Cells Not Reportable 01/31/21 09:58 Tear Drop Cells Not Reportable 01/31/21 09:58 Ovalocytes Not Reportable 01/31/21 09:58 Helmet Cells Not Reportable 01/31/21 09:58 [place] Bodies Not Reportable 01/31/21 09:58 [place] Rings Not Reportable 01/31/21 09:58 [place] Cells Not Reportable 01/31/21 09:58 Bite Cells Not Reportable 01/31/21 09:58 Crenated Cell Not Reportable 01/31/21 09:58 Elliptocytes Not Reportable 01/31/21 09:58 Acanthocytes (Spur) Not Reportable 01/31/21 09:58 Rouleaux Not Reportable 01/31/21 09:58 Hemoglobin C Crystals Not Reportable 01/31/21 09:58 Schistocytes Not Reportable 01/31/21 09:58 Malaria parasites Not Reportable 01/31/21 09:58 ESR 40 mm/Hr (0-20) 01/31/21 09:58 Felice Bodies Not Reportable 01/31/21 09:58 Hem Pathologist Commnt No 01/31/21 09:58 PT 18.3 Sec. (12.2-14.9) H 01/31/21 09:58 INR 1.47 (0.87-1.13) H 01/31/21 09:58 APTT 25.1 Sec. (24.2-36.6) 01/31/21 09:58 D-Dimer 1611.25 ng/mlDDU (0-234) H 01/31/21 21:37 Sodium 138 mmol/L (137-145) 02/04/21 05:57 Potassium 3.7 mmol/L (3.6-5.0) 02/04/21 05:57 Chloride 102.9 mmol/L (98-107) 02/04/21 05:57 Carbon Dioxide 21 mmol/L (22-30) L 02/04/21 05:57 Anion Gap 18 mmol/L 02/04/21 05:57 BUN 67 mg/dL (7-17) H 02/04/21 05:57 Creatinine 3.3 mg/dL (0.6-1.2) H 02/04/21 05:57 Estimated GFR 15 ml/min 02/04/21 05:57 BUN/Creatinine Ratio 20 % 02/04/21 05:57 Glucose 130 mg/dL (65-100) H 02/04/21 05:57 POC Glucose 118 mg/dL (70-105) H 02/04/21 06:57 Hemoglobin A1c 8.7 % (4-6) H 02/01/21 08:10 Lactic Acid 4.10 mmol/L (0.7-2.0) H* 02/03/21 17:41 Calcium 8.3 mg/dL (8.4-10.2) L 02/04/21 05:57 Phosphorus 2.70 mg/dL (2.5-4.5) D 02/04/21 05:57 Magnesium 1.80 mg/dL (1.7-2.3) 01/31/21 09:58 Ferritin 573.6 ng/mL (10.0-200.0) H 01/31/21 21:37 Total Bilirubin < 0.20 mg/dL (0.1-1.2) 02/01/21 08:10 AST 127 units/L (5-40) H 02/01/21 08:10 ALT 37 units/L (7-56) 02/01/21 08:10 Alkaline Phosphatase 88 units/L (35-129) 02/01/21 08:10 Lactate Dehydrogenase 173 units/L (91-180) 01/31/21 21:37 Troponin T < 0.010 ng/mL (0.00-0.029) 01/31/21 09:58 C-Reactive Protein 19.30 mg/dL (0.00-1.30) H 01/31/21 21:37 NT-Pro-B Natriuret Pep 1763 pg/mL (0-900) H 01/31/21 09:58 Total Protein 5.4 g/dL (6.3-8.2) L 02/01/21 08:10 Albumin 2.7 g/dL (3.9-5) L 02/01/21 08:10 Albumin/Globulin Ratio 1.0 % 02/01/21 08:10 Lipase 13 units/L (13-60) 01/31/21 09:58 Procalcitonin 38.21 ng/mL (<0.15) 01/31/21 21:37 Urine Color Yellow (Yellow) 02/01/21 04:19 Urine Turbidity Cloudy (Clear) 02/01/21 04:19 Urine pH 5.0 (5.0-7.0) 02/01/21 04:19 Ur Specific [place] 1.016 (1.003-1.030) 02/01/21 04:19 Urine Protein 100 mg/dl mg/dL (Negative) 02/01/21 04:19 Urine Glucose (UA) >=500 mg/dL (Negative) 02/01/21 04:19 Urine Ketones 20 mg/dL (Negative) 02/01/21 04:19 Urine Blood Mod (Negative) 02/01/21 04:19 Urine Nitrite Neg (Negative) 02/01/21 04:19 Urine Bilirubin Neg (Negative) 02/01/21 04:19 Urine Urobilinogen < 2.0 mg/dL (<2.0) 02/01/21 04:19 Ur Leukocyte Esterase Neg (Negative) 02/01/21 04:19 Urine WBC (Auto) 14.0 /HPF (0.0-6.0) H 02/01/21 04:19 Urine RBC (Auto) 8.0 /HPF (0.0-6.0) 02/01/21 04:19 U Epithel Cells (Auto) 2.0 /HPF (0-13.0) 02/01/21 04:19 Urine Bacteria (Auto) 1+ /HPF (Negative) 02/01/21 04:19 Amorphous Crystals 1+ 02/01/21 04:19 Coronavirus (PCR) Negative (Negative) 01/31/21 Unknown Microbiology: Microbiology 01/31/21 09:58 Peripheral/Venous Blood Culture - Preliminary NO GROWTH AFTER 72 HOURS 01/31/21 09:58 Peripheral/Venous Blood Culture - Preliminary NO GROWTH AFTER 72 HOURS 02/01/21 04:30 Urine,Catheterized - Straight Catheter Urine Culture - Final Verma/IV: Voiding Method Incontinent Active Medications - Current Medications Current Medications: Generic Name Dose Route Start Last Admin Trade Name Freq PRN Reason Stop Dose Admin Acetaminophen 650 mg 01/31/21 23:21 Acetaminophen 325 Mg Tab PO Q4H PRN Pain MILD(1-3)/Fever >100.5/RIVERA Lipase/Protease/Amylase 1 each 02/01/21 07:14 Lipase 10,500/Protease 25,000/Amylase 43,750 (Units) Dr Braun FEEDTUBE PRN PRN For Clogged Feeding Tube Apixaban 2.5 mg 01/31/21 23:30 02/03/21 22:02 Apixaban 2.5 Mg Tab PO 2.5 mg BID SHAHLA Administration Ascorbic Acid 500 mg 02/01/21 10:00 02/03/21 11:11 Ascorbic Acid 500 Mg Tab PO 500 mg DAILY SHAHLA Administration Citalopram Hydrobromide 20 mg 02/01/21 10:00 02/03/21 11:12 Citalopram 20 Mg Tab PO 20 mg QDAY SHAHLA Administration Famotidine 10 mg 02/02/21 10:00 02/03/21 22:05 Famotidine 10 Mg Tab PO 10 mg BID SHAHLA Administration Hydromorphone HCl 0.5 mg 01/31/21 23:21 Hydromorphone 1 Mg/1 Ml Inj IV Q3H PRN Pain , Severe (7-10) Sodium Bicarbonate 100 meq/ 1,100 mls @ 100 mls/hr 02/01/21 12:00 02/04/21 06:08 Sterile Water IV 100 mls/hr DIRECT SHAHLA Administration Cefepime HCl 2 gm in 100 mls @ 200 mls/hr 02/02/21 10:00 02/03/21 11:11 Cefepime/Ns 2 Gm/100 Ml IV 02/05/21 10:59 200 mls/hr Q24HR SHAHLA Administration Protocol Insulin Glargine 30 units 02/03/21 12:00 02/03/21 11:28 Insulin Glargine 100 Units/Ml SUB-Q 30 units QPM SHAHLA Administration Insulin Human Lispro 0 unit 01/31/21 23:45 02/04/21 07:02 Insulin Lispro 100 Unit/Ml SUB-Q Not Given Q4HR [facility] Protocol Insulin Human Lispro 5 unit 02/03/21 08:30 02/04/21 08:29 Insulin Lispro 100 Unit/Ml SUB-Q Not Given AC [facility] Morphine Sulfate 2 mg 01/31/21 23:21 02/02/21 05:11 Morphine 2 Mg/1 Ml Inj IV 2 mg Q4H PRN Administration Pain, Moderate (4-6) Ondansetron HCl 4 mg 01/31/21 23:21 Ondansetron 4 Mg/2 Ml Inj IV Q8H PRN Nausea And Vomiting Simple Syrup 15 ml 02/01/21 07:14 Simple Syrup 15 Ml FEEDTUBE PRN PRN Hypoglycemia Simple Syrup 30 ml 02/01/21 07:14 02/04/21 02:39 Simple Syrup 15 Ml FEEDTUBE 30 ml PRN PRN Administration Hypoglycemia Sodium Bicarbonate 325 mg 02/01/21 07:14 Sodium Bicarbonate 325 Mg Tab FEEDTUBE PRN PRN For Clogged Feeding Tube Sodium Chloride 10 ml 02/01/21 10:00 02/03/21 22:03 Sodium Chloride 0.9% 10 Ml Flush Syringe IV 10 ml BID SHAHLA Administration Sodium Chloride 10 ml 01/31/21 23:21 Sodium Chloride 0.9% 10 Ml Flush Syringe IV PRN PRN LINE FLUSH Nutrition/Malnutrition Assess - Dietary Evaluation Nutrition/Malnutrition Findings: Nutrition Notes Start: 02/01/21 10:35 Freq: Status: Active Protocol: Document 02/03/21 15:11 [facility] (Rec: 02/03/21 15:17 PRALL [id number]) Nutrition Notes Initial or Follow up Brief Note Current Diet TF - Glucerna 1.2 at 45ml/hr Labs/Tests Phos 1.9 BUN 59 Cr 2.7 BG 256 Pertinent Medications 30mmol Na Phos x 1 dose, Lantus Height 5 ft 2 in Weight 44.2 kg [place] Body Weight (kg) 50.00 BMI 17.8 Weight change and time frame admission wt likely incorrect; pt with third spacing per RN report Weight Status Underweight Subjective/Other Information TF not infusing at time of visit (14:02). Per RN, pt was vomiting while TF infusing; was also congested. Nutrition Intervention Follow-Up By: 02/04/21 Additional Comments F/U: POC, Phos lab, TF restart , renal function
[2021-02-04] MEDS: CEFEPIME/NS 2 GM/100 ML 2 GM/100 ML BAG IV SCH (10:37)
[2021-02-04] MEDS: ASCORBIC ACID 500 MG TAB PO SCH (10:37)
[2021-02-04] MEDS: FAMOTIDINE 10 MG TAB PO SCH ×2 (10:37→21:40)
[2021-02-04] MEDS: ACETAMINOPHEN 325 MG TAB PO PRN (10:38)
[2021-02-04] MEDS: APIXABAN 2.5 MG TAB PO SCH ×2 (10:38→21:40)
[2021-02-04] MEDS: CITALOPRAM 20 MG TAB PO SCH (14:22)
--- NOTE | 2021-02-04 16:06 | Progress Note ---
Assessment and Plan Cultures: Blood culture no growth so far Covid PCR: Negative Urine culture<10,000 mixed bacteria A/P: 55-year-old female past medical history hypertension, dysphagia with PEG tube in place, diabetes with frequent DKA admitted with bilateral pneumonia #Acute sepsis: no fever for 48 hours. Likely secondary to pneumonia #Acute respiratory failure: Saturations down to the 80s on admission, improving. Secondary to pneumonia #Bilateral pneumonia/recurrent pneumonia: Negative Covid PCR. Elevated procalcitonin setting of RACH, probable bacterial pneumonia at this point. Patient with previous bilateral pneumonia November 2020. Concerns of aspiration. #Chronic severe gingivitis #RACH: Renally dose antibiotics. Worsening. #Diabetes: tight glycemic control for best outcomes. #Pyuria: With history of a kidney stone. Recs: -Continue empiric renally dosed cefepime D3 of 5 -Follow-up cultures -Aspiration precautions -Dental evaluation post discharge Rosalinda Rosario MD [facility] ([facility]) Office [phone] Subjective Date of service: 02/04/21 Principal diagnosis: pneumonia Interval history: Remains nonverbal, no fever, no acute events. Objective - Exam Narrative Exam: General appearance: Somnolent and nonverbal Eyes: anicteric sclerae, moist conjunctivae; no lid-lag; PERRLA HENT: Normocephalic, Atraumatic; normal external ears, nares open, oropharynx extensive gum edema and necrosis Neck: supple, tracheal midline, no JVD Lungs: Bilateral rhonchi CV: RRR no murmur Abdomen: Soft, nontender PEG in place Extremities: no edema, no cyanosis Skin: No rash. Psych: Somnolent Neuro: Somnolent - Constitutional Vitals: Vital Signs Temp Pulse Resp BP Pulse Ox 97.7 F 91 H 24 93/50 95 02/04/21 11:21 02/04/21 11:21 02/04/21 11:21 02/04/21 11:21 02/04/21 11:21 Temperature -Last 24 Hours Temperature 97.7 F Temperature 98.1 F Temperature 98.7 F - Labs CBC & Chem 7: 02/03/21 05:20 02/04/21 05:57 Labs: Abnormal lab results 02/03/21 02/03/21 02/03/21 Range/Units 15:35 16:26 17:41 Carbon Dioxide (22-30) mmol/L BUN (7-17) mg/dL Creatinine (0.6-1.2) mg/dL Glucose (65-100) mg/dL POC Glucose 216 H (70-105) mg/dL Lactic Acid 6.10 H* 4.10 H* (0.7-2.0) mmol/L Calcium (8.4-10.2) mg/dL 02/03/21 02/03/21 02/04/21 Range/Units 21:45 22:16 02:21 Carbon Dioxide (22-30) mmol/L BUN (7-17) mg/dL Creatinine (0.6-1.2) mg/dL Glucose (65-100) mg/dL POC Glucose 24 L 131 H 52 L (70-105) mg/dL Lactic Acid (0.7-2.0) mmol/L Calcium (8.4-10.2) mg/dL 02/04/21 02/04/21 02/04/21 Range/Units 03:42 04:39 05:57 Carbon Dioxide 21 L (22-30) mmol/L BUN 67 H (7-17) mg/dL Creatinine 3.3 H (0.6-1.2) mg/dL Glucose 130 H (65-100) mg/dL POC Glucose 49 L 154 H (70-105) mg/dL Lactic Acid (0.7-2.0) mmol/L Calcium 8.3 L (8.4-10.2) mg/dL 02/04/21 02/04/21 Range/Units 06:57 11:19 Carbon Dioxide (22-30) mmol/L BUN (7-17) mg/dL Creatinine (0.6-1.2) mg/dL Glucose (65-100) mg/dL POC Glucose 118 H 111 H (70-105) mg/dL Lactic Acid (0.7-2.0) mmol/L Calcium (8.4-10.2) mg/dL
[2021-02-04] MEDS ORDERED: SODIUM CHLORIDE 0.9% 500 ML 500 ML IV ONE (17:45)
[2021-02-05] MEDS: SODIUM BICARBONATE 100 MEQ in WATER FOR INJECTION (PF) 1,000 ML IV SCH (00:14)
[2021-02-05] MEDS: INSULIN LISPRO 100 UNIT/ML SUB-Q SCH ×9 (03:03→22:06)
[2021-02-05] MEDS: INSULIN GLARGINE 100 UNITS/ML SUB-Q SCH ×2 (03:03→17:07)
[2021-02-05] MEDS: ACETAMINOPHEN 325 MG TAB PO PRN (03:03)
[2021-02-05 05:53] LABS: Calcium 8.4 mg/dL (8.4-10.2)
[2021-02-05] MEDS: APIXABAN 2.5 MG TAB PO SCH ×2 (09:00→22:11)
[2021-02-05] MEDS: CITALOPRAM 20 MG TAB PO SCH (09:00)
[2021-02-05] MEDS: FAMOTIDINE 10 MG TAB PO SCH ×2 (09:00→22:11)
[2021-02-05] MEDS: CEFEPIME/NS 2 GM/100 ML 2 GM/100 ML BAG IV SCH (09:00)
[2021-02-05] MEDS: ASCORBIC ACID 500 MG TAB PO SCH (09:00)
--- NOTE | 2021-02-05 11:33 | Progress Note ---
Assessment and Plan 1. Acute kidney injury: Vasomotor RACH superimposed on CKD in the setting of sepsis / hypotension. ATN likely. CT abdomen negative for hydro. Urine studies ordered. Monitor renal function. Creatinine level increasing. Bladder scan X 2 negative. Avoid nephrotoxic agents. Meds dosage based on GFR. Monitor for [employer] needs. 2. FEN: Anion-gap metabolic acidosis, on Sod bicarb drip, monitor. Hypokalemia, improved, monitor. Monitor lytes and volume status. 3. Sepsis, POA: Likely 2/2 PNA. Covid test negative. Followed by ID. IV fluid bolus ordered. 4. Bilateral PNA, POA: Abx. Covid test negative. 5. DM: Monitor. 6. Dysphagia: Patient has PEG tube. 7. Anemia: Monitor. 8. HTN: Monitor BP. 9. Metabolic encephalopathy, POA. Subjective: Patient was seen and examined at the bedside. General Appearance: General appearance: appears stated age, not in distress, appears chronically ill HEENT: ATNC, CAITY Neck: Trachea midline Respiratory: ctab Cardiology: regular, S1S2, no murmur Gastrointestinal: normoactive bowel sounds, not tender, not distended, PEG tube noted Integumentary: no rash, warm and dry Neurologic: lethargic, not following any command, non-verbal Ext: no edema Subjective Date of service: 02/05/21 Principal diagnosis: pneumonia Objective - Vital Signs Vital signs: Vital Signs - 12hr 02/05/21 05:09 Temperature 98.1 F Pulse Rate 88 Respiratory 22 Rate Blood Pressure 113/43 O2 Sat by Pulse 97 Oximetry - Lab 02/03/21 05:20 02/05/21 04:42 Most recent lab results Calcium 8.4 mg/dL (8.4-10.2) 02/05/21 04:42 Phosphorus 2.30 mg/dL (2.5-4.5) L 02/05/21 04:42 Magnesium 2.40 mg/dL (1.7-2.3) H 02/05/21 04:42 Medications & Allergies - Medications Allergies/Adverse Reactions: Allergies No Known Allergies Allergy (Verified 02/26/20 10:24) Home Medications: Home Medications Medication Instructions Recorded Confirmed Last Taken Type Citalopram [Celexa] 20 mg PO QDAY 01/25/20 02/01/21 Unknown History Pravastatin [Pravachol] 40 mg PO QHS 01/25/20 02/01/21 Unknown History Acetaminophen [Mapap] 650 mg PO BID PRN 02/26/20 02/01/21 Unknown History Ascorbic Acid [Vitamin C with Chetna 500 mg PO DAILY 02/26/20 02/01/21 Unknown History Hips] Glimepiride [Amaryl] 4 mg PO QAM 02/26/20 02/01/21 Unknown History Insulin Lispro [Humalog] 5 units SQ AC 02/26/20 02/01/21 Unknown History Multivit-Min/Ferrous Fumarate 15 mg PO DAILY 02/26/20 02/01/21 Unknown History [Multivitamin with Minerals Tab] Apixaban [Eliquis] 2.5 mg PO BID #30 tablet 03/01/20 02/01/21 Unknown Rx Famotidine [Pepcid] 20 mg PO QDAY #30 tablet 11/26/20 02/01/21 Unknown Rx Insulin Glargine [Lantus VIAL] 30 units SUB-Q QHS #10 units 11/26/20 02/01/21 Unknown Rx Lipase/Protease/Amylase [Pancreaze 1 each FEEDTUBE PRN PRN capsule 11/26/20 02/01/21 Unknown Rx 10,500 Unit] Insulin Regular, Human [HumuLIN R] 0 units SUB-Q Q6HR units 01/10/21 02/01/21 Unknown Rx Simple Syrup 15 ml FEEDTUBE PRN PRN oral.liqd 01/10/21 02/01/21 Unknown Rx Simple Syrup 30 ml FEEDTUBE PRN PRN oral.liqd 01/10/21 02/01/21 Unknown Rx Sodium Bicarbonate 325 mg FEEDTUBE PRN PRN tablet 01/10/21 02/01/21 Unknown Rx levoFLOXacin [Levaquin] 750 mg PO QDAY #10 tablet 01/10/21 02/01/21 Unknown Rx Active Medications: Generic Name Dose Route Start Last Admin Trade Name Freq PRN Reason Stop Dose Admin Acetaminophen 650 mg 01/31/21 23:21 02/05/21 03:03 Acetaminophen 325 Mg Tab PO 650 mg Q4H PRN Administration Pain MILD(1-3)/Fever >100.5/RIVERA Lipase/Protease/Amylase 1 each 02/01/21 07:14 02/05/21 10:08 Lipase 10,500/Protease 25,000/Amylase 43,750 (Units) Dr Braun FEEDTUBE 1 each PRN PRN Administration For Clogged Feeding Tube Apixaban 2.5 mg 01/31/21 23:30 02/05/21 09:00 Apixaban 2.5 Mg Tab PO 2.5 mg BID SHAHLA Administration Ascorbic Acid 500 mg 02/01/21 10:00 02/05/21 09:00 Ascorbic Acid 500 Mg Tab PO 500 mg DAILY SHAHLA Administration Citalopram Hydrobromide 20 mg 02/01/21 10:00 02/05/21 09:00 Citalopram 20 Mg Tab PO 20 mg QDAY SHAHLA Administration Famotidine 10 mg 02/02/21 10:00 02/05/21 09:00 Famotidine 10 Mg Tab PO 10 mg BID SHAHLA Administration Hydromorphone HCl 0.5 mg 01/31/21 23:21 Hydromorphone 1 Mg/1 Ml Inj IV Q3H PRN Pain , Severe (7-10) Sodium Bicarbonate 100 meq/ 1,100 mls @ 100 mls/hr 02/01/21 12:00 02/05/21 00:14 Sterile Water IV 100 mls/hr DIRECT SHAHLA Administration Cefepime HCl 2 gm in 100 mls @ 200 mls/hr 02/02/21 10:00 02/05/21 09:00 Cefepime/Ns 2 Gm/100 Ml IV 02/06/21 10:59 200 mls/hr Q24HR SHAHLA Administration Protocol Insulin Glargine 30 units 02/03/21 12:00 02/05/21 03:03 Insulin Glargine 100 Units/Ml SUB-Q 30 units QPM SHAHLA Administration Insulin Human Lispro 0 unit 01/31/21 23:45 02/05/21 09:20 Insulin Lispro 100 Unit/Ml SUB-Q Not Given Q4HR [facility] Protocol Insulin Human Lispro 5 unit 02/03/21 08:30 02/05/21 08:36 Insulin Lispro 100 Unit/Ml SUB-Q Not Given AC [facility] Morphine Sulfate 2 mg 01/31/21 23:21 02/02/21 05:11 Morphine 2 Mg/1 Ml Inj IV 2 mg Q4H PRN Administration Pain, Moderate (4-6) Ondansetron HCl 4 mg 01/31/21 23:21 Ondansetron 4 Mg/2 Ml Inj IV Q8H PRN Nausea And Vomiting Simple Syrup 15 ml 02/01/21 07:14 Simple Syrup 15 Ml FEEDTUBE PRN PRN Hypoglycemia Simple Syrup 30 ml 02/01/21 07:14 02/04/21 02:39 Simple Syrup 15 Ml FEEDTUBE 30 ml PRN PRN Administration Hypoglycemia Sodium Bicarbonate 325 mg 02/01/21 07:14 02/05/21 10:07 Sodium Bicarbonate 325 Mg Tab FEEDTUBE 325 mg PRN PRN Administration For Clogged Feeding Tube Sodium Chloride 10 ml 02/01/21 10:00 02/05/21 09:20 Sodium Chloride 0.9% 10 Ml Flush Syringe IV 10 ml BID SHAHLA Administration Sodium Chloride 10 ml 01/31/21 23:21 Sodium Chloride 0.9% 10 Ml Flush Syringe IV PRN PRN LINE FLUSH
--- NOTE | 2021-02-05 16:27 | Progress Note ---
Assessment and Plan Cultures: Blood culture no growth so far Covid PCR: Negative Urine culture<10,000 mixed bacteria A/P: 55-year-old female past medical history hypertension, dysphagia with PEG tube in place, diabetes with frequent DKA admitted with bilateral pneumonia #Acute sepsis: Resolved. Likely secondary to pneumonia #Acute respiratory failure: Saturations down to the 80s on admission, improving. Secondary to pneumonia #Bilateral pneumonia/recurrent pneumonia: Negative Covid PCR. Elevated procalcitonin setting of RACH, probable bacterial pneumonia at this point. Patient with previous bilateral pneumonia November 2020. Concerns of aspiration. #Chronic severe gingivitis #RACH: Renally dose antibiotics. Worsening. #Diabetes: tight glycemic control for best outcomes. #Pyuria: With history of a kidney stone. #Thrombocytopenia: Worsening #Chronic encephalopathy: Nonverbal. Recs: -Monitor platelets -Continue empiric renally dosed cefepime D4 of 5 -Follow-up cultures -Aspiration precautions -Dental evaluation post discharge Rosalinda Roasrio MD [facility] ([facility]) Office [phone] Subjective Date of service: 02/05/21 Principal diagnosis: pneumonia Interval history: Remains nonverbal, no acute events overnight. Objective - Exam Narrative Exam: General appearance: Somnolent and nonverbal Eyes: anicteric sclerae, moist conjunctivae; no lid-lag; PERRLA HENT: Normocephalic, Atraumatic; normal external ears, nares open, oropharynx extensive gum edema and necrosis Neck: supple, tracheal midline, no JVD Lungs: Bilateral rhonchi CV: RRR no murmur Abdomen: Soft, nontender PEG in place Extremities: no edema, no cyanosis Skin: No rash. Psych: Somnolent Neuro: Somnolent - Constitutional Vitals: Vital Signs Temp Pulse Resp BP Pulse Ox 97.6 F 81 18 83/49 94 02/05/21 12:47 02/05/21 12:47 02/05/21 12:47 02/05/21 12:47 02/05/21 12:47 Temperature -Last 24 Hours Temperature 97.6 F Temperature 98.1 F Temperature 98.1 F - Labs CBC & Chem 7: 02/03/21 05:20 02/05/21 04:42 Labs: Abnormal lab results 02/04/21 02/04/2121 Range/Units 17:42 21:34 02:58 BUN (7-17) mg/dL Creatinine (0.6-1.2) mg/dL Glucose (65-100) mg/dL POC Glucose 178 H 108 H 369 H (70-105) mg/dL Phosphorus (2.5-4.5) mg/dL Magnesium (1.7-2.3) mg/dL 02/05/21 02/05/21 02/05/21 Range/Units 03:01 04:42 06:09 BUN 76 H (7-17) mg/dL Creatinine 3.5 H (0.6-1.2) mg/dL Glucose 376 H (65-100) mg/dL POC Glucose 329 H 293 H (70-105) mg/dL Phosphorus 2.30 L (2.5-4.5) mg/dL Magnesium 2.40 H (1.7-2.3) mg/dL 02/05/21 Range/Units 12:30 BUN (7-17) mg/dL Creatinine (0.6-1.2) mg/dL Glucose (65-100) mg/dL POC Glucose 57 L (70-105) mg/dL Phosphorus (2.5-4.5) mg/dL Magnesium (1.7-2.3) mg/dL
--- NOTE | 2021-02-05 16:51 | Progress Note ---
Assessment and Plan Assessment and plan: 55-year-old female patient with significant past medical history of dysphagia status post PEG diabetes mellitus uncontrolled with frequent DKA, hypertension, Bad oral hygiene with severe chronic gingivitis was admitted with severe sepsis secondary to bilateral pneumonia and acute kidney injury, Covid test is negative Evaluated by nephrology and ID currently receiving antibiotics cefepime, PICC line patient is severely dehydrated with cachexia, patient is minimally communicative, with poor prognosis -- Sepsis with hypotension Current Visit: Yes Status: Acute Secondary to bilateral pneumonia and severe gingivitis Continue IV fluids, supportive care, and IV antibiotics-cefepime and vancomycin per ID Patient is DNR and comfort care --Bilateral pneumonia; IV antibiotics-cefepime and vancomycin per ID Patient is DNR and comfort care. --Chronic gingivitis; Very poor oral hygiene Antibiotics, oral care Patient needs to see dentist upon discharge Dental services not available in the hospital --Acute toxic metabolic encephalopathy Current Visit: No Status: Acute Secondary to sepsis, severe malnutrition, underlying disease process. Continue supportive care, treat the underlying cause --Severe malnutrition; Nutrition supplements, nutrition consult, supportive care. Treat the underlying cause --History of dysphagia; status post PEG PEG tube feeding, PEG care -- Acute hypoxemic respiratory failure Current Visit: Yes Status: Acute Requiring supplemental oxygen Due to bilateral pneumonia, Sepsis Home O2 evaluation prior to discharge. --Diabetes mellitus; Accu-Chek sliding scale coverage ADA diet and long-acting insulin as needed --UTI/pyuria Continue empiric antibiotics. Follow cultures. Plenty of fluids IV and oral --DVT prophylaxis Current Visit: Yes Status: Acute On heparin and GI prophylaxis --DNR status; --Discharge planning issues Current Visit: Yes Status: Acute Plan to address problem: Patient is DNR and family wants only comfort measures and IV antibiotics No aggressive measures like pressors and intubation and CPR We will closely monitor the patient and adjust the management as noted Please call family and update patient's condition tomorrow Brief history and daily hospital course; 02/01/21 Patient with acute resp failure, bilateral pneumonia, encephalopathy. To r/o Covid- 19 infection. Continue iv Antibiotics. ID Physician consulted. Resume tube feeds Patient has DNR code status. Consulted Nephrology for RACH with Cr 1.6 02/02/21 Patient with acute respiratory failure, bilateral pneumonia Negative Covid-19 test Worse renal function Cr 2.2 Nephrology following 02/03/21 Patient sent in from SNF for fever and low oxygen saturation. She is diagnosed with acute respiratory failure due to bilateral pneumonia. She is negative for Covid Sepsis due to pneumonia Acute toxic metabolic encephalopathy Also RACH which is worsening. Cr 2.7 today. I discussed with Dr. Bryan Hypophosphatemia: replace iv DM uncontrolled : Increase Insuilin dose DNR status 02/04/2021; patient feels slightly better today Unresponsive noncommunicative Possible discharge back to SNF in stable 02/05/2021; clinically no change Continue current antibiotics May discharge back to SNF once antibiotics are completed History Interval history: I seen and examined the patient at the bedside Patient's chart and medications reviewed No new events reported by the nursing Vital signs noted Hospitalist Physical - Constitutional Vitals: Temp Pulse Resp BP Pulse Ox 97.6 F 81 18 83/49 94 02/05/21 12:47 02/05/21 12:47 02/05/21 12:47 02/05/21 12:47 02/05/21 12:47 General appearance: Present: mild distress, cachectic, other (Chronically ill looking cachectic emaciated) - EENT Eyes: Present: PERRL, EOM intact - Neck Neck: Present: supple, normal ROM - Respiratory Respiratory effort: normal Respiratory: bilateral: diminished, rhonchi, negative: rales, wheezing - Cardiovascular Rhythm: regular Heart Sounds: Present: S1 & S2 - Extremities Extremities: no ischemia, No edema - Abdominal General gastrointestinal: soft, non-tender, non-distended, normal bowel sounds, other (PEG tube in place) - Integumentary Integumentary: Present: clear, warm - Psychiatric Psychiatric: other (Noncommunicative) - Neurologic Neurologic: other (Noncommunicative) HEART Score - HEART Score Troponin: Troponin T < 0.010 ng/mL (0.00-0.029) 01/31/21 09:58 Results - Labs CBC & Chem 7: 02/03/21 05:20 02/07/21 04:30 Labs: Laboratory Last Values WBC 7.7 K/mm3 (4.5-11.0) 02/03/21 05:20 RBC 2.46 M/mm3 (3.65-5.03) L 02/03/21 05:20 Hgb 8.1 gm/dl (10.1-14.3) L 02/03/21 05:20 Hct 24.0 % (30.3-42.9) L 02/03/21 05:20 MCV 97 fl (79-97) 02/03/21 05:20 MCH 33 pg (28-32) H 02/03/21 05:20 MCHC 34 % (30-34) 02/03/21 05:20 RDW 14.8 % (13.2-15.2) 02/03/21 05:20 Plt Count 136 K/mm3 (140-440) L 02/03/21 05:20 Lymph % (Auto) 6.6 % (13.4-35.0) L 02/01/21 08:10 [place] % (Auto) 4.9 % (0.0-7.3) 02/01/21 08:10 Eos % (Auto) 0.4 % (0.0-4.3) 02/01/21 08:10 Baso % (Auto) 0.2 % (0.0-1.8) 02/01/21 08:10 Lymph # (Auto) 0.6 K/mm3 (1.2-5.4) L 02/01/21 08:10 [place] # (Auto) 0.4 K/mm3 (0.0-0.8) 02/01/21 08:10 Eos # (Auto) 0.0 K/mm3 (0.0-0.4) 02/01/21 08:10 Baso # (Auto) 0.0 K/mm3 (0.0-0.1) 02/01/21 08:10 Add Manual Diff Complete 01/31/21 09:58 Total Counted 100 01/31/21 09:58 Seg Neutrophils % 87.9 % (40.0-70.0) H 02/01/21 08:10 Seg Neuts % (Manual) 46.0 % (40.0-70.0) 01/31/21 09:58 Band Neutrophils % 14.0 % 01/31/21 09:58 Lymphocytes % (Manual) 34.0 % (13.4-35.0) 01/31/21 09:58 Reactive Lymphs % (Man) 1.0 % 01/31/21 09:58 Monocytes % (Manual) 5.0 % (0.0-7.3) 01/31/21 09:58 Nucleated RBC % Not Reportable 01/31/21 09:58 Seg Neutrophils # 7.8 K/mm3 (1.8-7.7) H 02/01/21 08:10 Seg Neutrophils # Man 0.7 K/mm3 (1.8-7.7) L 01/31/21 09:58 Band Neutrophils # 0.2 K/mm3 01/31/21 09:58 Lymphocytes # (Manual) 0.5 K/mm3 (1.2-5.4) L 01/31/21 09:58 Abs React Lymphs (Man) 0.0 K/mm3 01/31/21 09:58 Monocytes # (Manual) 0.1 K/mm3 (0.0-0.8) 01/31/21 09:58 Eosinophils # (Manual) 0.0 K/mm3 (0.0-0.4) 01/31/21 09:58 Basophils # (Manual) 0.0 K/mm3 (0.0-0.1) 01/31/21 09:58 Metamyelocytes # 0.0 K/mm3 01/31/21 09:58 Myelocytes # 0.0 K/mm3 01/31/21 09:58 Promyelocytes # 0.0 K/mm3 01/31/21 09:58 Blast Cells # 0.0 K/mm3 01/31/21 09:58 WBC Morphology Not Reportable 01/31/21 09:58 Hypersegmented Neuts Not Reportable 01/31/21 09:58 Hyposegmented Neuts Not Reportable 01/31/21 09:58 Hypogranular Neuts Not Reportable 01/31/21 09:58 Smudge Cells Not Reportable 01/31/21 09:58 Toxic Granulation Not Reportable 01/31/21 09:58 Toxic Vacuolation Not Reportable 01/31/21 09:58 Dohle Bodies Not Reportable 01/31/21 09:58 Pelger-Huet Anomaly Not Reportable 01/31/21 09:58 Jamia Rods Not Reportable 01/31/21 09:58 Platelet Estimate Consistent w auto 01/31/21 09:58 Clumped Platelets Not Reportable 01/31/21 09:58 Plt Clumps, EDTA Not Reportable 01/31/21 09:58 Large Platelets Not Reportable 01/31/21 09:58 Giant Platelets Not Reportable 01/31/21 09:58 Platelet Satelliting Not Reportable 01/31/21 09:58 Plt Morphology Comment Not Reportable 01/31/21 09:58 RBC Morphology Not Reportable 01/31/21 09:58 Dimorphic RBCs Not Reportable 01/31/21 09:58 Polychromasia Not Reportable 01/31/21 09:58 Hypochromasia Few 01/31/21 09:58 Poikilocytosis Not Reportable 01/31/21 09:58 Anisocytosis Not Reportable 01/31/21 09:58 Microcytosis Not Reportable 01/31/21 09:58 Macrocytosis Not Reportable 01/31/21 09:58 Spherocytes Not Reportable 01/31/21 09:58 Pappenheimer Bodies Not Reportable 01/31/21 09:58 Sickle Cells Not Reportable 01/31/21 09:58 Target Cells Not Reportable 01/31/21 09:58 Tear Drop Cells Not Reportable 01/31/21 09:58 Ovalocytes Not Reportable 01/31/21 09:58 Helmet Cells Not Reportable 01/31/21 09:58 [place] Bodies Not Reportable 01/31/21 09:58 [place] Rings Not Reportable 01/31/21 09:58 Luis Cells Not Reportable 01/31/21 09:58 Bite Cells Not Reportable 01/31/21 09:58 Crenated Cell Not Reportable 01/31/21 09:58 Elliptocytes Not Reportable 01/31/21 09:58 Acanthocytes (Spur) Not Reportable 01/31/21 09:58 Rouleaux Not Reportable 01/31/21 09:58 Hemoglobin C Crystals Not Reportable 01/31/21 09:58 Schistocytes Not Reportable 01/31/21 09:58 Malaria parasites Not Reportable 01/31/21 09:58 ESR 40 mm/Hr (0-20) 01/31/21 09:58 Felice Bodies Not Reportable 01/31/21 09:58 Hem Pathologist Commnt No 01/31/21 09:58 PT 18.3 Sec. (12.2-14.9) H 01/31/21 09:58 INR 1.47 (0.87-1.13) H 01/31/21 09:58 APTT 25.1 Sec. (24.2-36.6) 01/31/21 09:58 D-Dimer 1611.25 ng/mlDDU (0-234) H 01/31/21 21:37 Sodium 141 mmol/L (137-145) 02/05/21 04:42 Potassium 4.1 mmol/L (3.6-5.0) 02/05/21 04:42 Chloride 98.9 mmol/L (98-107) 02/05/21 04:42 Carbon Dioxide 24 mmol/L (22-30) 02/05/21 04:42 Anion Gap 22 mmol/L 02/05/21 04:42 BUN 76 mg/dL (7-17) H 02/05/21 04:42 Creatinine 3.5 mg/dL (0.6-1.2) H 02/05/21 04:42 Estimated GFR 14 ml/min 02/05/21 04:42 BUN/Creatinine Ratio 22 % 02/05/21 04:42 Glucose 376 mg/dL (65-100) H 02/05/21 04:42 POC Glucose 57 mg/dL (70-105) L 02/05/21 12:30 Hemoglobin A1c 8.7 % (4-6) H 02/01/21 08:10 Lactic Acid 4.10 mmol/L (0.7-2.0) H* 02/03/21 17:41 Calcium 8.4 mg/dL (8.4-10.2) 02/05/21 04:42 Phosphorus 2.30 mg/dL (2.5-4.5) L 02/05/21 04:42 Magnesium 2.40 mg/dL (1.7-2.3) H 02/05/21 04:42 Ferritin 573.6 ng/mL (10.0-200.0) H 01/31/21 21:37 Total Bilirubin < 0.20 mg/dL (0.1-1.2) 02/01/21 08:10 AST 127 units/L (5-40) H 02/01/21 08:10 ALT 37 units/L (7-56) 02/01/21 08:10 Alkaline Phosphatase 88 units/L (35-129) 02/01/21 08:10 Lactate Dehydrogenase 173 units/L (91-180) 01/31/21 21:37 Troponin T < 0.010 ng/mL (0.00-0.029) 01/31/21 09:58 C-Reactive Protein 19.30 mg/dL (0.00-1.30) H 01/31/21 21:37 NT-Pro-B Natriuret Pep 1763 pg/mL (0-900) H 01/31/21 09:58 Total Protein 5.4 g/dL (6.3-8.2) L 02/01/21 08:10 Albumin 2.7 g/dL (3.9-5) L 02/01/21 08:10 Albumin/Globulin Ratio 1.0 % 02/01/21 08:10 Lipase 13 units/L (13-60) 01/31/21 09:58 Procalcitonin 38.21 ng/mL (<0.15) 01/31/21 21:37 Urine Color Yellow (Yellow) 02/01/21 04:19 Urine Turbidity Cloudy (Clear) 02/01/21 04:19 Urine pH 5.0 (5.0-7.0) 02/01/21 04:19 Ur Specific [place] 1.016 (1.003-1.030) 02/01/21 04:19 Urine Protein 100 mg/dl mg/dL (Negative) 02/01/21 04:19 Urine Glucose (UA) >=500 mg/dL (Negative) 02/01/21 04:19 Urine Ketones 20 mg/dL (Negative) 02/01/21 04:19 Urine Blood Mod (Negative) 02/01/21 04:19 Urine Nitrite Neg (Negative) 02/01/21 04:19 Urine Bilirubin Neg (Negative) 02/01/21 04:19 Urine Urobilinogen < 2.0 mg/dL (<2.0) 02/01/21 04:19 Ur Leukocyte Esterase Neg (Negative) 02/01/21 04:19 Urine WBC (Auto) 14.0 /HPF (0.0-6.0) H 02/01/21 04:19 Urine RBC (Auto) 8.0 /HPF (0.0-6.0) 02/01/21 04:19 U Epithel Cells (Auto) 2.0 /HPF (0-13.0) 02/01/21 04:19 Urine Bacteria (Auto) 1+ /HPF (Negative) 02/01/21 04:19 Amorphous Crystals 1+ 02/01/21 04:19 Coronavirus (PCR) Negative (Negative) 01/31/21 Unknown Microbiology: Microbiology 01/31/21 09:58 Peripheral/Venous Blood Culture - Final NO GROWTH AFTER 5 DAYS 01/31/21 09:58 Peripheral/Venous Blood Culture - Final NO GROWTH AFTER 5 DAYS Verma/IV: Voiding Method Incontinent Active Medications - Current Medications Current Medications: Generic Name Dose Route Start Last Admin Trade Name Freq PRN Reason Stop Dose Admin Acetaminophen 650 mg 01/31/21 23:21 02/05/21 03:03 Acetaminophen 325 Mg Tab PO 650 mg Q4H PRN Administration Pain MILD(1-3)/Fever >100.5/RIVERA Lipase/Protease/Amylase 1 each 02/01/21 07:14 02/05/21 10:08 Lipase 10,500/Protease 25,000/Amylase 43,750 (Units) Dr Braun FEEDTUBE 1 each PRN PRN Administration For Clogged Feeding Tube Apixaban 2.5 mg 01/31/21 23:30 02/05/21 09:00 Apixaban 2.5 Mg Tab PO 2.5 mg BID SHAHLA Administration Ascorbic Acid 500 mg 02/01/21 10:00 02/05/21 09:00 Ascorbic Acid 500 Mg Tab PO 500 mg DAILY SHAHLA Administration Citalopram Hydrobromide 20 mg 02/01/21 10:00 02/05/21 09:00 Citalopram 20 Mg Tab PO 20 mg QDAY SHAHLA Administration Famotidine 10 mg 02/02/21 10:00 02/05/21 09:00 Famotidine 10 Mg Tab PO 10 mg BID SHAHLA Administration Hydromorphone HCl 0.5 mg 01/31/21 23:21 Hydromorphone 1 Mg/1 Ml Inj IV Q3H PRN Pain , Severe (7-10) Sodium Bicarbonate 100 meq/ 1,100 mls @ 100 mls/hr 02/01/21 12:00 02/05/21 00:14 Sterile Water IV 100 mls/hr DIRECT SHAHLA Administration Cefepime HCl 2 gm in 100 mls @ 200 mls/hr 02/02/21 10:00 02/05/21 09:00 Cefepime/Ns 2 Gm/100 Ml IV 02/06/21 10:59 200 mls/hr Q24HR SHAHLA Administration Protocol Sodium Chloride 500 mls @ 999 mls/hr 02/05/21 17:13 Nacl 0.9% 500 Ml IV 02/05/21 17:43 ONCE ONE Insulin Glargine 30 units 02/03/21 12:00 02/05/21 03:03 Insulin Glargine 100 Units/Ml SUB-Q 30 units QPM SHAHLA Administration Insulin Human Lispro 0 unit 01/31/21 23:45 02/05/21 14:35 Insulin Lispro 100 Unit/Ml SUB-Q Not Given Q4HR [facility] Protocol Insulin Human Lispro 5 unit 02/03/21 08:30 02/05/21 13:23 Insulin Lispro 100 Unit/Ml SUB-Q Not Given AC [facility] Morphine Sulfate 2 mg 01/31/21 23:21 02/02/21 05:11 Morphine 2 Mg/1 Ml Inj IV 2 mg Q4H PRN Administration Pain, Moderate (4-6) Ondansetron HCl 4 mg 01/31/21 23:21 Ondansetron 4 Mg/2 Ml Inj IV Q8H PRN Nausea And Vomiting Simple Syrup 15 ml 02/01/21 07:14 Simple Syrup 15 Ml FEEDTUBE PRN PRN Hypoglycemia Simple Syrup 30 ml 02/01/21 07:14 02/04/21 02:39 Simple Syrup 15 Ml FEEDTUBE 30 ml PRN PRN Administration Hypoglycemia Sodium Bicarbonate 325 mg 02/01/21 07:14 02/05/21 10:07 Sodium Bicarbonate 325 Mg Tab FEEDTUBE 325 mg PRN PRN Administration For Clogged Feeding Tube Sodium Chloride 10 ml 02/01/21 10:00 02/05/21 09:20 Sodium Chloride 0.9% 10 Ml Flush Syringe IV 10 ml BID SHAHLA Administration Sodium Chloride 10 ml 01/31/21 23:21 Sodium Chloride 0.9% 10 Ml Flush Syringe IV PRN PRN LINE FLUSH Nutrition/Malnutrition Assess - Dietary Evaluation Nutrition/Malnutrition Findings: Nutrition Notes Start: 02/01/21 10:35 Freq: Status: Active Protocol: Document 02/04/21 14:49 SUSANA (Rec: 02/04/21 14:52 SUSANA [id number]) Nutrition Notes Initial or Follow up Brief Note Labs/Tests Phos 2.7 BUN 67 Cr 3.3 Subjective/Other Information TF infusing at goal rate; per RN, pt tolerating TF. Nutrition Intervention Follow-Up By: 02/06/21 Additional Comments F/U: TF tolerance, renal function
[2021-02-05] MEDS: SIMPLE SYRUP 15 ML FEEDTUBE PRN (17:07)
[2021-02-05] MEDS ORDERED: SODIUM CHLORIDE 0.9% 500 ML 500 ML IV ONE (17:13)
[2021-02-06] MEDS: INSULIN LISPRO 100 UNIT/ML SUB-Q SCH ×9 (03:01→22:06)
[2021-02-06] MEDS: SODIUM BICARBONATE 100 MEQ in WATER FOR INJECTION (PF) 1,000 ML IV SCH ×2 (04:59→17:45)
--- NOTE | 2021-02-06 09:18 | Progress Note ---
Assessment and Plan 1. Acute kidney injury: Vasomotor RACH superimposed on CKD in the setting of sepsis / hypotension. ATN likely. CT abdomen negative for hydro. Urine studies ordered. Monitor renal function. Creatinine level continue to increase. Bladder scan negative. Avoid nephrotoxic agents. Meds dosage based on GFR. Monitor for [employer] needs. 2. FEN: Anion-gap metabolic acidosis, on Sod bicarb drip, monitor. Hypokalemia, improved, monitor. Monitor lytes and volume status. 3. Sepsis, POA: Likely 2/2 PNA. Covid test negative. Followed by ID. 4. Bilateral PNA, POA: S?p Abx. Covid test negative. 5. DM: Monitor. 6. Dysphagia: Patient has PEG tube. 7. Anemia: Monitor. 8. HTN: Monitor BP. 9. Metabolic encephalopathy, POA. Subjective: Patient was seen and examined at the bedside. General Appearance: General appearance: appears stated age, not in distress, appears chronically ill HEENT: ATNC, CAITY Neck: Trachea midline Respiratory: ctab Cardiology: regular, S1S2, no murmur Gastrointestinal: normoactive bowel sounds, not tender, not distended, PEG tube noted Integumentary: no rash, warm and dry Neurologic: lethargic, not following any command, non-verbal Ext: no edema Subjective Date of service: 02/06/21 Principal diagnosis: pneumonia Objective - Vital Signs Vital signs: Vital Signs - 12hr 02/05/21 22:15 Temperature 98.2 F Pulse Rate 83 Respiratory 17 Rate Blood Pressure 103/48 O2 Sat by Pulse 100 Oximetry - Lab 02/03/21 05:20 02/06/21 10:25 Most recent lab results Calcium 8.4 mg/dL (8.4-10.2) 02/05/21 04:42 Phosphorus 2.30 mg/dL (2.5-4.5) L 02/05/21 04:42 Magnesium 2.40 mg/dL (1.7-2.3) H 02/05/21 04:42 Medications & Allergies - Medications Allergies/Adverse Reactions: Allergies No Known Allergies Allergy (Verified 02/26/20 10:24) Home Medications: Home Medications Medication Instructions Recorded Confirmed Last Taken Type Citalopram [Celexa] 20 mg PO QDAY 01/25/20 02/01/21 Unknown History Pravastatin [Pravachol] 40 mg PO QHS 01/25/20 02/01/21 Unknown History Acetaminophen [Mapap] 650 mg PO BID PRN 02/26/20 02/01/21 Unknown History Ascorbic Acid [Vitamin C with Chetna 500 mg PO DAILY 02/26/20 02/01/21 Unknown History Hips] Glimepiride [Amaryl] 4 mg PO QAM 02/26/20 02/01/21 Unknown History Insulin Lispro [Humalog] 5 units SQ AC 02/26/20 02/01/21 Unknown History Multivit-Min/Ferrous Fumarate 15 mg PO DAILY 02/26/20 02/01/21 Unknown History [Multivitamin with Minerals Tab] Apixaban [Eliquis] 2.5 mg PO BID #30 tablet 03/01/20 02/01/21 Unknown Rx Famotidine [Pepcid] 20 mg PO QDAY #30 tablet 11/26/20 02/01/21 Unknown Rx Insulin Glargine [Lantus VIAL] 30 units SUB-Q QHS #10 units 11/26/20 02/01/21 Unknown Rx Lipase/Protease/Amylase [Pancreaze 1 each FEEDTUBE PRN PRN capsule 11/26/20 02/01/21 Unknown Rx 10,500 Unit] Insulin Regular, Human [HumuLIN R] 0 units SUB-Q Q6HR units 01/10/21 02/01/21 Unknown Rx Simple Syrup 15 ml FEEDTUBE PRN PRN oral.liqd 01/10/21 02/01/21 Unknown Rx Simple Syrup 30 ml FEEDTUBE PRN PRN oral.liqd 01/10/21 02/01/21 Unknown Rx Sodium Bicarbonate 325 mg FEEDTUBE PRN PRN tablet 01/10/21 02/01/21 Unknown Rx levoFLOXacin [Levaquin] 750 mg PO QDAY #10 tablet 01/10/21 02/01/21 Unknown Rx Active Medications: Generic Name Dose Route Start Last Admin Trade Name Freq PRN Reason Stop Dose Admin Acetaminophen 650 mg 01/31/21 23:21 02/05/21 03:03 Acetaminophen 325 Mg Tab PO 650 mg Q4H PRN Administration Pain MILD(1-3)/Fever >100.5/RIVERA Lipase/Protease/Amylase 1 each 02/01/21 07:14 02/05/21 10:08 Lipase 10,500/Protease 25,000/Amylase 43,750 (Units) Dr Braun FEEDTUBE 1 each PRN PRN Administration For Clogged Feeding Tube Apixaban 2.5 mg 01/31/21 23:30 02/05/21 22:11 Apixaban 2.5 Mg Tab PO 2.5 mg BID SHAHLA Administration Ascorbic Acid 500 mg 02/01/21 10:00 02/05/21 09:00 Ascorbic Acid 500 Mg Tab PO 500 mg DAILY SHAHLA Administration Citalopram Hydrobromide 20 mg 02/01/21 10:00 02/05/21 09:00 Citalopram 20 Mg Tab PO 20 mg QDAY SHAHLA Administration Famotidine 10 mg 02/02/21 10:00 02/05/21 22:11 Famotidine 10 Mg Tab PO 10 mg BID SHAHLA Administration Hydromorphone HCl 0.5 mg 01/31/21 23:21 Hydromorphone 1 Mg/1 Ml Inj IV Q3H PRN Pain , Severe (7-10) Sodium Bicarbonate 100 meq/ 1,100 mls @ 100 mls/hr 02/01/21 12:00 02/06/21 04:59 Sterile Water IV 100 mls/hr DIRECT SHAHLA Administration Cefepime HCl 2 gm in 100 mls @ 200 mls/hr 02/02/21 10:00 02/05/21 09:00 Cefepime/Ns 2 Gm/100 Ml IV 02/06/21 10:59 200 mls/hr Q24HR SHAHLA Administration Protocol Insulin Glargine 30 units 02/03/21 12:00 02/05/21 17:07 Insulin Glargine 100 Units/Ml SUB-Q Not Given QPM [facility] Insulin Human Lispro 0 unit 01/31/21 23:45 02/06/21 04:59 Insulin Lispro 100 Unit/Ml SUB-Q Not Given Q4HR [facility] Protocol Insulin Human Lispro 5 unit 02/03/21 08:30 02/05/21 17:06 Insulin Lispro 100 Unit/Ml SUB-Q Not Given AC [facility] Morphine Sulfate 2 mg 01/31/21 23:21 02/02/21 05:11 Morphine 2 Mg/1 Ml Inj IV 2 mg Q4H PRN Administration Pain, Moderate (4-6) Ondansetron HCl 4 mg 01/31/21 23:21 Ondansetron 4 Mg/2 Ml Inj IV Q8H PRN Nausea And Vomiting Simple Syrup 15 ml 02/01/21 07:14 02/05/21 18:50 Simple Syrup 15 Ml FEEDTUBE 15 ml PRN PRN Administration Hypoglycemia Simple Syrup 30 ml 02/01/21 07:14 02/05/21 17:07 Simple Syrup 15 Ml FEEDTUBE 30 ml PRN PRN Administration Hypoglycemia Sodium Bicarbonate 325 mg 02/01/21 07:14 02/05/21 10:07 Sodium Bicarbonate 325 Mg Tab FEEDTUBE 325 mg PRN PRN Administration For Clogged Feeding Tube Sodium Chloride 10 ml 02/01/21 10:00 02/05/21 22:11 Sodium Chloride 0.9% 10 Ml Flush Syringe IV 10 ml BID SHAHLA Administration Sodium Chloride 10 ml 01/31/21 23:21 Sodium Chloride 0.9% 10 Ml Flush Syringe IV PRN PRN LINE FLUSH
[2021-02-06 11:19] LABS: Calcium 8.3 mg/dL (8.4-10.2)
[2021-02-06] MEDS: CEFEPIME/NS 2 GM/100 ML 2 GM/100 ML BAG IV SCH (11:26)
[2021-02-06] MEDS: CITALOPRAM 20 MG TAB PO SCH (11:27)
[2021-02-06] MEDS: APIXABAN 2.5 MG TAB PO SCH ×2 (11:27→21:58)
[2021-02-06] MEDS: FAMOTIDINE 10 MG TAB PO SCH ×2 (11:27→21:58)
[2021-02-06] MEDS: ASCORBIC ACID 500 MG TAB PO SCH (11:28)
--- NOTE | 2021-02-06 17:40 | Progress Note ---
Assessment and Plan Cultures: Blood culture no growth so far Covid PCR: Negative Urine culture<10,000 mixed bacteria A/P: 55-year-old female past medical history hypertension, dysphagia with PEG tube in place, diabetes with frequent DKA admitted with bilateral pneumonia #Acute sepsis: Resolved. Likely secondary to pneumonia #Acute respiratory failure: Saturations down to the 80s on admission, improving. Secondary to pneumonia #Bilateral pneumonia/recurrent pneumonia: Negative Covid PCR. Elevated procalcitonin setting of RACH, probable bacterial pneumonia at this point. Patient with previous bilateral pneumonia November 2020. Concerns of aspiration. #Chronic severe gingivitis #RACH: Renally dose antibiotics. Worsening. #Diabetes: tight glycemic control for best outcomes. #Pyuria: With history of a kidney stone. #Thrombocytopenia: Worsening #Chronic encephalopathy: Nonverbal. Recs: -Noted diarrhea, monitor diarrhea -Continue empiric renally dosed cefepime D5 of 5 -Monitor off antibiotics -Follow-up cultures -Aspiration precautions -Dental evaluation post discharge Rosalinda Rosario MD [facility] ([facility]) Office [phone] Subjective Date of service: 02/06/21 Principal diagnosis: pneumonia Interval history: Remains confused, unintelligible speech, noted diarrhea. Objective - Exam Narrative Exam: General appearance: Somnolent and nonverbal Eyes: anicteric sclerae, moist conjunctivae; no lid-lag; PERRLA HENT: Normocephalic, Atraumatic; normal external ears, nares open, oropharynx extensive gum edema and necrosis Neck: supple, tracheal midline, no JVD Lungs: Bilateral rhonchi CV: RRR no murmur Abdomen: Soft, nontender PEG in place Extremities: no edema, no cyanosis Skin: No rash. Psych: Somnolent Neuro: Somnolent - Constitutional Vitals: Vital Signs Temp Pulse Resp BP Pulse Ox 98.3 F 80 16 87/39 95 02/06/21 11:28 02/06/21 11:28 02/06/21 11:28 02/06/21 11:28 02/06/21 11:28 Temperature -Last 24 Hours Temperature 98.3 F Temperature 98.2 F - Labs CBC & Chem 7: 02/03/21 05:20 02/06/21 10:25 Labs: Abnormal lab results 02/05/21 02/05/21 02/06/21 Range/Units 18:05 18:06 04:54 Chloride (98-107) mmol/L BUN (7-17) mg/dL Creatinine (0.6-1.2) mg/dL Glucose (65-100) mg/dL POC Glucose 47 L 44 L 161 H (70-105) mg/dL Calcium (8.4-10.2) mg/dL 02/06/21 02/06/21 02/06/21 Range/Units 08:01 10:25 11:26 Chloride 97.1 L (98-107) mmol/L BUN 90 H (7-17) mg/dL Creatinine 3.7 H (0.6-1.2) mg/dL Glucose 250 H (65-100) mg/dL POC Glucose 219 H 173 H (70-105) mg/dL Calcium 8.3 L (8.4-10.2) mg/dL
[2021-02-06] MEDS: INSULIN GLARGINE 100 UNITS/ML SUB-Q SCH (17:48)
--- NOTE | 2021-02-06 18:15 | Progress Note ---
Assessment and Plan Assessment and plan: 55-year-old female patient with significant past medical history of dysphagia status post PEG diabetes mellitus uncontrolled with frequent DKA, hypertension, Bad oral hygiene with severe chronic gingivitis was admitted with severe sepsis secondary to bilateral pneumonia and acute kidney injury, Covid test is negative Evaluated by nephrology and ID currently receiving antibiotics cefepime, PICC line patient is severely dehydrated with cachexia, patient is minimally communicative, with poor prognosis -- Sepsis with hypotension Current Visit: Yes Status: Acute Secondary to bilateral pneumonia and severe gingivitis Continue IV fluids, supportive care, and IV antibiotics-cefepime and vancomycin per ID Patient is DNR and comfort care --Bilateral pneumonia; IV antibiotics-cefepime and vancomycin per ID Patient is DNR and comfort care. --Chronic gingivitis; Very poor oral hygiene Antibiotics, oral care Patient needs to see dentist upon discharge Dental services not available in the hospital --Acute toxic metabolic encephalopathy Current Visit: No Status: Acute Secondary to sepsis, severe malnutrition, underlying disease process. Continue supportive care, treat the underlying cause --Severe malnutrition; Nutrition supplements, nutrition consult, supportive care. Treat the underlying cause --History of dysphagia; status post PEG PEG tube feeding, PEG care -- Acute hypoxemic respiratory failure Current Visit: Yes Status: Acute Requiring supplemental oxygen Due to bilateral pneumonia, Sepsis Home O2 evaluation prior to discharge. --Diabetes mellitus; Accu-Chek sliding scale coverage ADA diet and long-acting insulin as needed --UTI/pyuria Continue empiric antibiotics. Follow cultures. Plenty of fluids IV and oral --DVT prophylaxis Current Visit: Yes Status: Acute On heparin and GI prophylaxis --DNR status; --Discharge planning issues Current Visit: Yes Status: Acute Plan to address problem: Patient is DNR and family wants only comfort measures and IV antibiotics No aggressive measures like pressors and intubation and CPR We will closely monitor the patient and adjust the management as noted Please call family and update patient's condition tomorrow Brief history and daily hospital course; 02/01/21 Patient with acute resp failure, bilateral pneumonia, encephalopathy. To r/o Covid- 19 infection. Continue iv Antibiotics. ID Physician consulted. Resume tube feeds Patient has DNR code status. Consulted Nephrology for RACH with Cr 1.6 02/02/21 Patient with acute respiratory failure, bilateral pneumonia Negative Covid-19 test Worse renal function Cr 2.2 Nephrology following 02/03/21 Patient sent in from SNF for fever and low oxygen saturation. She is diagnosed with acute respiratory failure due to bilateral pneumonia. She is negative for Covid Sepsis due to pneumonia Acute toxic metabolic encephalopathy Also RACH which is worsening. Cr 2.7 today. I discussed with Dr. Bryan Hypophosphatemia: replace iv DM uncontrolled : Increase Insuilin dose DNR status 02/04/2021; patient feels slightly better today Unresponsive noncommunicative Possible discharge back to SNF in stable 02/05/2021; clinically no change Continue current antibiotics May discharge back to SNF once antibiotics are completed 02/06/2021; Continue current management Patient will be going back to SNF once medically stable Consultants and recommendations noted and appreciated History Interval history: I seen and examined the patient this morning during morning rounds Patient's chart and medications Patient is noncommunicative encephalopathy Vital signs noted Hospitalist Physical - Constitutional Vitals: Temp Pulse Resp BP Pulse Ox 98.3 F 80 16 87/39 95 02/06/21 11:28 02/06/21 11:28 02/06/21 11:28 02/06/21 11:28 02/06/21 11:28 General appearance: Present: mild distress, cachectic, other (Chronically ill looking cachectic emaciated) - EENT Eyes: Present: PERRL, EOM intact ENT: other (Poor oral hygiene) - Neck Neck: Present: supple, normal ROM - Respiratory Respiratory effort: normal Respiratory: bilateral: diminished, rhonchi, negative: rales, wheezing - Cardiovascular Rhythm: regular Heart Sounds: Present: S1 & S2 - Extremities Extremities: no ischemia, No edema - Abdominal General gastrointestinal: soft, non-tender, non-distended, normal bowel sounds - Integumentary Integumentary: Present: clear, warm - Psychiatric Psychiatric: other (Noncommunicative) - Neurologic Neurologic: other HEART Score - HEART Score Troponin: Troponin T < 0.010 ng/mL (0.00-0.029) 01/31/21 09:58 Results - Labs CBC & Chem 7: 02/03/21 05:20 02/07/21 04:30 Labs: Laboratory Last Values WBC 7.7 K/mm3 (4.5-11.0) 02/03/21 05:20 RBC 2.46 M/mm3 (3.65-5.03) L 02/03/21 05:20 Hgb 8.1 gm/dl (10.1-14.3) L 02/03/21 05:20 Hct 24.0 % (30.3-42.9) L 02/03/21 05:20 MCV 97 fl (79-97) 02/03/21 05:20 MCH 33 pg (28-32) H 02/03/21 05:20 MCHC 34 % (30-34) 02/03/21 05:20 RDW 14.8 % (13.2-15.2) 02/03/21 05:20 Plt Count 136 K/mm3 (140-440) L 02/03/21 05:20 Lymph % (Auto) 6.6 % (13.4-35.0) L 02/01/21 08:10 [place] % (Auto) 4.9 % (0.0-7.3) 02/01/21 08:10 Eos % (Auto) 0.4 % (0.0-4.3) 02/01/21 08:10 Baso % (Auto) 0.2 % (0.0-1.8) 02/01/21 08:10 Lymph # (Auto) 0.6 K/mm3 (1.2-5.4) L 02/01/21 08:10 [place] # (Auto) 0.4 K/mm3 (0.0-0.8) 02/01/21 08:10 Eos # (Auto) 0.0 K/mm3 (0.0-0.4) 02/01/21 08:10 Baso # (Auto) 0.0 K/mm3 (0.0-0.1) 02/01/21 08:10 Add Manual Diff Complete 01/31/21 09:58 Total Counted 100 01/31/21 09:58 Seg Neutrophils % 87.9 % (40.0-70.0) H 02/01/21 08:10 Seg Neuts % (Manual) 46.0 % (40.0-70.0) 01/31/21 09:58 Band Neutrophils % 14.0 % 01/31/21 09:58 Lymphocytes % (Manual) 34.0 % (13.4-35.0) 01/31/21 09:58 Reactive Lymphs % (Man) 1.0 % 01/31/21 09:58 Monocytes % (Manual) 5.0 % (0.0-7.3) 01/31/21 09:58 Nucleated RBC % Not Reportable 01/31/21 09:58 Seg Neutrophils # 7.8 K/mm3 (1.8-7.7) H 02/01/21 08:10 Seg Neutrophils # Man 0.7 K/mm3 (1.8-7.7) L 01/31/21 09:58 Band Neutrophils # 0.2 K/mm3 01/31/21 09:58 Lymphocytes # (Manual) 0.5 K/mm3 (1.2-5.4) L 01/31/21 09:58 Abs React Lymphs (Man) 0.0 K/mm3 01/31/21 09:58 Monocytes # (Manual) 0.1 K/mm3 (0.0-0.8) 01/31/21 09:58 Eosinophils # (Manual) 0.0 K/mm3 (0.0-0.4) 01/31/21 09:58 Basophils # (Manual) 0.0 K/mm3 (0.0-0.1) 01/31/21 09:58 Metamyelocytes # 0.0 K/mm3 01/31/21 09:58 Myelocytes # 0.0 K/mm3 01/31/21 09:58 Promyelocytes # 0.0 K/mm3 01/31/21 09:58 Blast Cells # 0.0 K/mm3 01/31/21 09:58 WBC Morphology Not Reportable 01/31/21 09:58 Hypersegmented Neuts Not Reportable 01/31/21 09:58 Hyposegmented Neuts Not Reportable 01/31/21 09:58 Hypogranular Neuts Not Reportable 01/31/21 09:58 Smudge Cells Not Reportable 01/31/21 09:58 Toxic Granulation Not Reportable 01/31/21 09:58 Toxic Vacuolation Not Reportable 01/31/21 09:58 Dohle Bodies Not Reportable 01/31/21 09:58 Pelger-Huet Anomaly Not Reportable 01/31/21 09:58 Jamia Rods Not Reportable 01/31/21 09:58 Platelet Estimate Consistent w auto 01/31/21 09:58 Clumped Platelets Not Reportable 01/31/21 09:58 Plt Clumps, EDTA Not Reportable 01/31/21 09:58 Large Platelets Not Reportable 01/31/21 09:58 Giant Platelets Not Reportable 01/31/21 09:58 Platelet Satelliting Not Reportable 01/31/21 09:58 Plt Morphology Comment Not Reportable 01/31/21 09:58 RBC Morphology Not Reportable 01/31/21 09:58 Dimorphic RBCs Not Reportable 01/31/21 09:58 Polychromasia Not Reportable 01/31/21 09:58 Hypochromasia Few 01/31/21 09:58 Poikilocytosis Not Reportable 01/31/21 09:58 Anisocytosis Not Reportable 01/31/21 09:58 Microcytosis Not Reportable 01/31/21 09:58 Macrocytosis Not Reportable 01/31/21 09:58 Spherocytes Not Reportable 01/31/21 09:58 Pappenheimer Bodies Not Reportable 01/31/21 09:58 Sickle Cells Not Reportable 01/31/21 09:58 Target Cells Not Reportable 01/31/21 09:58 Tear Drop Cells Not Reportable 01/31/21 09:58 Ovalocytes Not Reportable 01/31/21 09:58 Helmet Cells Not Reportable 01/31/21 09:[address] Bodies Not Reportable 01/31/21 09:58 [place] Rings Not Reportable 01/31/21 09:58 [place] Cells Not Reportable 01/31/21 09:58 Bite Cells Not Reportable 01/31/21 09:58 Crenated Cell Not Reportable 01/31/21 09:58 Elliptocytes Not Reportable 01/31/21 09:58 Acanthocytes (Spur) Not Reportable 01/31/21 09:58 Rouleaux Not Reportable 01/31/21 09:58 Hemoglobin C Crystals Not Reportable 01/31/21 09:58 Schistocytes Not Reportable 01/31/21 09:58 Malaria parasites Not Reportable 01/31/21 09:58 ESR 40 mm/Hr (0-20) 01/31/21 09:58 Felice Bodies Not Reportable 01/31/21 09:58 Hem Pathologist Commnt No 01/31/21 09:58 PT 18.3 Sec. (12.2-14.9) H 01/31/21 09:58 INR 1.47 (0.87-1.13) H 01/31/21 09:58 APTT 25.1 Sec. (24.2-36.6) 01/31/21 09:58 D-Dimer 1611.25 ng/mlDDU (0-234) H 01/31/21 21:37 Sodium 138 mmol/L (137-145) 02/06/21 10:25 Potassium 4.0 mmol/L (3.6-5.0) 02/06/21 10:25 Chloride 97.1 mmol/L (98-107) L 02/06/21 10:25 Carbon Dioxide 30 mmol/L (22-30) 02/06/21 10:25 Anion Gap 15 mmol/L 02/06/21 10:25 BUN 90 mg/dL (7-17) H 02/06/21 10:25 Creatinine 3.7 mg/dL (0.6-1.2) H 02/06/21 10:25 Estimated GFR 13 ml/min 02/06/21 10:25 BUN/Creatinine Ratio 24 % 02/06/21 10:25 Glucose 250 mg/dL (65-100) H 02/06/21 10:25 POC Glucose 94 mg/dL (70-105) 02/06/21 16:25 Hemoglobin A1c 8.7 % (4-6) H 02/01/21 08:10 Lactic Acid 4.10 mmol/L (0.7-2.0) H* 02/03/21 17:41 Calcium 8.3 mg/dL (8.4-10.2) L 02/06/21 10:25 Phosphorus 2.30 mg/dL (2.5-4.5) L 02/05/21 04:42 Magnesium 2.40 mg/dL (1.7-2.3) H 02/05/21 04:42 Ferritin 573.6 ng/mL (10.0-200.0) H 01/31/21 21:37 Total Bilirubin < 0.20 mg/dL (0.1-1.2) 02/01/21 08:10 AST 127 units/L (5-40) H 02/01/21 08:10 ALT 37 units/L (7-56) 02/01/21 08:10 Alkaline Phosphatase 88 units/L (35-129) 02/01/21 08:10 Lactate Dehydrogenase 173 units/L (91-180) 01/31/21 21:37 Troponin T < 0.010 ng/mL (0.00-0.029) 01/31/21 09:58 C-Reactive Protein 19.30 mg/dL (0.00-1.30) H 01/31/21 21:37 NT-Pro-B Natriuret Pep 1763 pg/mL (0-900) H 01/31/21 09:58 Total Protein 5.4 g/dL (6.3-8.2) L 02/01/21 08:10 Albumin 2.7 g/dL (3.9-5) L 02/01/21 08:10 Albumin/Globulin Ratio 1.0 % 02/01/21 08:10 Lipase 13 units/L (13-60) 01/31/21 09:58 Procalcitonin 38.21 ng/mL (<0.15) 01/31/21 21:37 Urine Color Yellow (Yellow) 02/01/21 04:19 Urine Turbidity Cloudy (Clear) 02/01/21 04:19 Urine pH 5.0 (5.0-7.0) 02/01/21 04:19 Ur Specific [place] 1.016 (1.003-1.030) 02/01/21 04:19 Urine Protein 100 mg/dl mg/dL (Negative) 02/01/21 04:19 Urine Glucose (UA) >=500 mg/dL (Negative) 02/01/21 04:19 Urine Ketones 20 mg/dL (Negative) 02/01/21 04:19 Urine Blood Mod (Negative) 02/01/21 04:19 Urine Nitrite Neg (Negative) 02/01/21 04:19 Urine Bilirubin Neg (Negative) 02/01/21 04:19 Urine Urobilinogen < 2.0 mg/dL (<2.0) 02/01/21 04:19 Ur Leukocyte Esterase Neg (Negative) 02/01/21 04:19 Urine WBC (Auto) 14.0 /HPF (0.0-6.0) H 02/01/21 04:19 Urine RBC (Auto) 8.0 /HPF (0.0-6.0) 02/01/21 04:19 U Epithel Cells (Auto) 2.0 /HPF (0-13.0) 02/01/21 04:19 Urine Bacteria (Auto) 1+ /HPF (Negative) 02/01/21 04:19 Amorphous Crystals 1+ 02/01/21 04:19 Coronavirus (PCR) Negative (Negative) 01/31/21 Unknown Verma/IV: Voiding Method Diaper Active Medications - Current Medications Current Medications: Generic Name Dose Route Start Last Admin Trade Name Freq PRN Reason Stop Dose Admin Acetaminophen 650 mg 01/31/21 23:21 02/05/21 03:03 Acetaminophen 325 Mg Tab PO 650 mg Q4H PRN Administration Pain MILD(1-3)/Fever >100.5/RIVERA Lipase/Protease/Amylase 1 each 02/01/21 07:14 02/05/21 10:08 Lipase 10,500/Protease 25,000/Amylase 43,750 (Units) Dr Braun FEEDTUBE 1 each PRN PRN Administration For Clogged Feeding Tube Apixaban 2.5 mg 01/31/21 23:30 02/06/21 11:27 Apixaban 2.5 Mg Tab PO 2.5 mg BID SHAHLA Administration Ascorbic Acid 500 mg 02/01/21 10:00 02/06/21 11:28 Ascorbic Acid 500 Mg Tab PO 500 mg DAILY SHAHLA Administration Citalopram Hydrobromide 20 mg 02/01/21 10:00 02/06/21 11:27 Citalopram 20 Mg Tab PO 20 mg QDAY SHAHLA Administration Famotidine 10 mg 02/02/21 10:00 02/06/21 11:27 Famotidine 10 Mg Tab PO 10 mg BID SHAHLA Administration Hydromorphone HCl 0.5 mg 01/31/21 23:21 Hydromorphone 1 Mg/1 Ml Inj IV Q3H PRN Pain , Severe (7-10) Sodium Bicarbonate 100 meq/ 1,100 mls @ 100 mls/hr 02/01/21 12:00 02/06/21 17:45 Sterile Water IV 100 mls/hr DIRECT SHAHLA Administration Insulin Glargine 30 units 02/03/21 12:00 02/06/21 17:48 Insulin Glargine 100 Units/Ml SUB-Q Not Given QPM [facility] Insulin Human Lispro 5 unit 02/03/21 08:30 02/06/21 17:47 Insulin Lispro 100 Unit/Ml SUB-Q Not Given AC SHAHLA Insulin Human Lispro 0 unit 02/06/21 18:00 02/06/21 17:48 Insulin Lispro 100 Unit/Ml SUB-Q Not Given ACHS [facility] Protocol Morphine Sulfate 2 mg 01/31/21 23:21 02/02/21 05:11 Morphine 2 Mg/1 Ml Inj IV 2 mg Q4H PRN Administration Pain, Moderate (4-6) Ondansetron HCl 4 mg 01/31/21 23:21 Ondansetron 4 Mg/2 Ml Inj IV Q8H PRN Nausea And Vomiting Simple Syrup 15 ml 02/01/21 07:14 02/05/21 18:50 Simple Syrup 15 Ml FEEDTUBE 15 ml PRN PRN Administration Hypoglycemia Simple Syrup 30 ml 02/01/21 07:14 02/05/21 17:07 Simple Syrup 15 Ml FEEDTUBE 30 ml PRN PRN Administration Hypoglycemia Sodium Bicarbonate 325 mg 02/01/21 07:14 02/05/21 10:07 Sodium Bicarbonate 325 Mg Tab FEEDTUBE 325 mg PRN PRN Administration For Clogged Feeding Tube Sodium Chloride 10 ml 02/01/21 10:00 02/06/21 11:28 Sodium Chloride 0.9% 10 Ml Flush Syringe IV 10 ml BID SHAHLA Administration Sodium Chloride 10 ml 01/31/21 23:21 Sodium Chloride 0.9% 10 Ml Flush Syringe IV PRN PRN LINE FLUSH Nutrition/Malnutrition Assess - Dietary Evaluation Nutrition/Malnutrition Findings: Nutrition Notes Start: 02/01/21 10:35 Freq: Status: Active Protocol: Document 02/06/21 09:46 SUSANA (Rec: 02/06/21 09:55 SUSANA [id number]) Nutrition Notes Initial or Follow up Reassessment Current Diagnosis Diabetes,Sepsis,Respiratory Failure Other Pertinent Diagnosis Bilat pneu, encephalopathy, UTI Current Diet TF - Glucerna 1.2 at 45ml/hr Labs/Tests Reviewed Pertinent Medications Reviewed Height 5 ft 2 in Weight 43.3 kg [place] Body Weight (kg) 50.00 BMI 17.4 Weight Status Underweight Subjective/Other Information Pt tolerating TF at goal rate. She is being monitored for renal replacement therapy needs. Percent of energy/protein needs met: 100% energy and pro Burn Absent Trauma Absent #2 Nutrition Diagnosis Inadequate oral intake Etiology dysphagia, encephalopathy As Evidenced by Signs and Symptoms pt NPO and requires EN support to meet nutrient needs #1 Nutrition Diagnosis No nutrition diagnosis at this time Diagnosis Progress(for reassessment Resolved documentation) Is patient on ventilator? No Is Patient Ambulatory and/or Out of Bed No REE-([facility]-confined to bed) 1182.264 Kcal/Kg value to use for calculation 35 Approximate Energy Requirements Using 1516 kcal/Kg Calculation Used for Recommendations Kcal/kg Additional Notes Pro needs 0.8-1.2g/k-52g/ day Fluid needs 1ml/kcal Nutrition Intervention Nutrition Support: Continue Glucerna 1.2 at 45ml/ hr with 75ml water flush q4h. Kcal 1,296 Protein (gm) 65 Carbohydrates (gm) 124 Fat (gm) 65 Fluid (mL) 869 Fiber (gm) 17 Goal #1 TF tolerance Goal #2 TF to meet 100% energy and pro needs Goal #3 Wt maintenance and/or gain Follow-Up By: 02/11/21 Additional Comments F/U: stable TF, renal function , wt
[2021-02-07] MEDS ORDERED: SODIUM CHLORIDE 0.9% 500 ML 500 ML IV ONE (05:08)
[2021-02-07 05:35] LABS: Calcium 8.5 mg/dL (8.4-10.2)
[2021-02-07] MEDS: INSULIN LISPRO 100 UNIT/ML SUB-Q SCH ×6 (06:30→17:31)
--- NOTE | 2021-02-07 08:50 | Progress Note ---
Assessment and Plan 1. Acute kidney injury: Vasomotor RACH superimposed on CKD in the setting of sepsis / hypotension. ATN likely. CT abdomen negative for hydro. Urine studies ordered. Monitor renal function. Creatinine level continue to increase. Bladder scan negative. Avoid nephrotoxic agents. Meds dosage based on GFR. 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 2. FEN: Anion-gap metabolic acidosis, improved, monitor. Hypokalemia, improved, monitor. Monitor lytes and volume status. 3. Sepsis, POA: Likely 2/2 PNA. Covid test negative. Followed by ID. 4. Bilateral PNA, POA: S/p Abx. Covid test negative. 5. DM: Monitor. 6. Dysphagia: Patient has PEG tube. 7. Anemia: Monitor. 8. HTN: Monitor BP. 9. Metabolic encephalopathy, POA. Possible d/c to hospice. Subjective: Patient was seen and examined at the bedside. General Appearance: General appearance: appears stated age, not in distress, appears chronically ill HEENT: ATNC, CAITY Neck: Trachea midline Respiratory: ctab Cardiology: regular, S1S2, no murmur Gastrointestinal: normoactive bowel sounds, not tender, not distended, PEG tube noted Integumentary: no rash, warm and dry Neurologic: lethargic, not following any command, non-verbal Ext: no edema Subjective Date of service: 02/07/21 Principal diagnosis: pneumonia Objective - Vital Signs Vital signs: Vital Signs - 12hr 02/06/21 02/07/21 22:04 05:34 Temperature 98.7 F Pulse Rate 89 Respiratory 20 Rate Blood Pressure 95/41 Blood Pressure 91/48 [Left] O2 Sat by Pulse 86 Oximetry - Lab 02/03/21 05:20 02/07/21 04:30 Most recent lab results Calcium 8.5 mg/dL (8.4-10.2) 02/07/21 04:30 Phosphorus 2.30 mg/dL (2.5-4.5) L 02/05/21 04:42 Magnesium 2.40 mg/dL (1.7-2.3) H 02/05/21 04:42 Medications & Allergies - Medications Allergies/Adverse Reactions: Allergies No Known Allergies Allergy (Verified 02/26/20 10:24) Home Medications: Home Medications Medication Instructions Recorded Confirmed Last Taken Type Citalopram [Celexa] 20 mg PO QDAY 01/25/20 02/01/21 Unknown History Pravastatin [Pravachol] 40 mg PO QHS 01/25/20 02/01/21 Unknown History Acetaminophen [Mapap] 650 mg PO BID PRN 02/26/20 02/01/21 Unknown History Ascorbic Acid [Vitamin C with Chetna 500 mg PO DAILY 02/26/20 02/01/21 Unknown History Hips] Glimepiride [Amaryl] 4 mg PO QAM 02/26/20 02/01/21 Unknown History Insulin Lispro [Humalog] 5 units SQ AC 02/26/20 02/01/21 Unknown History Multivit-Min/Ferrous Fumarate 15 mg PO DAILY 02/26/20 02/01/21 Unknown History [Multivitamin with Minerals Tab] Apixaban [Eliquis] 2.5 mg PO BID #30 tablet 03/01/20 02/01/21 Unknown Rx Famotidine [Pepcid] 20 mg PO QDAY #30 tablet 11/26/20 02/01/21 Unknown Rx Insulin Glargine [Lantus VIAL] 30 units SUB-Q QHS #10 units 11/26/20 02/01/21 Unknown Rx Lipase/Protease/Amylase [Pancreaze 1 each FEEDTUBE PRN PRN capsule 11/26/20 02/01/21 Unknown Rx 10,500 Unit] Insulin Regular, Human [HumuLIN R] 0 units SUB-Q Q6HR units 01/10/21 02/01/21 Unknown Rx Simple Syrup 15 ml FEEDTUBE PRN PRN oral.liqd 01/10/21 02/01/21 Unknown Rx Simple Syrup 30 ml FEEDTUBE PRN PRN oral.liqd 01/10/21 02/01/21 Unknown Rx Sodium Bicarbonate 325 mg FEEDTUBE PRN PRN tablet 01/10/21 02/01/21 Unknown Rx Midodrine [Proamatine] 5 mg PO TID@0800,1200,1600 #60 02/07/21 Unknown Rx tablet Active Medications: Generic Name Dose Route Start Last Admin Trade Name Freq PRN Reason Stop Dose Admin Acetaminophen 650 mg 01/31/21 23:21 02/05/21 03:03 Acetaminophen 325 Mg Tab PO 650 mg Q4H PRN Administration Pain MILD(1-3)/Fever >100.5/RIVERA Lipase/Protease/Amylase 1 each 02/01/21 07:14 02/05/21 10:08 Lipase 10,500/Protease 25,000/Amylase 43,750 (Units) Dr Braun FEEDTUBE 1 each PRN PRN Administration For Clogged Feeding Tube Apixaban 2.5 mg 01/31/21 23:30 02/06/21 21:58 Apixaban 2.5 Mg Tab PO 2.5 mg BID SHAHLA Administration Ascorbic Acid 500 mg 02/01/21 10:00 02/06/21 11:28 Ascorbic Acid 500 Mg Tab PO 500 mg DAILY SHAHLA Administration Citalopram Hydrobromide 20 mg 02/01/21 10:00 02/06/21 11:27 Citalopram 20 Mg Tab PO 20 mg QDAY SHAHLA Administration Famotidine 10 mg 02/02/21 10:00 02/06/21 21:58 Famotidine 10 Mg Tab PO 10 mg BID SHAHLA Administration Hydromorphone HCl 0.5 mg 01/31/21 23:21 02/07/21 05:34 Hydromorphone 1 Mg/1 Ml Inj IV 0.5 mg Q3H PRN Administration Pain , Severe (7-10) Sodium Bicarbonate 100 meq/ 1,100 mls @ 100 mls/hr 02/01/21 12:00 02/06/21 17:45 Sterile Water IV 100 mls/hr DIRECT SHAHLA Administration Insulin Glargine 30 units 02/03/21 12:00 02/06/21 17:48 Insulin Glargine 100 Units/Ml SUB-Q Not Given QPM [facility] Insulin Human Lispro 5 unit 02/03/21 08:30 02/06/21 17:47 Insulin Lispro 100 Unit/Ml SUB-Q Not Given AC [facility] Insulin Human Lispro 0 unit 02/06/21 18:00 02/07/21 06:30 Insulin Lispro 100 Unit/Ml SUB-Q 10 unit ACHS [facility] Administration Protocol Morphine Sulfate 2 mg 01/31/21 23:21 02/02/21 05:11 Morphine 2 Mg/1 Ml Inj IV 2 mg Q4H PRN Administration Pain, Moderate (4-6) Ondansetron HCl 4 mg 01/31/21 23:21 Ondansetron 4 Mg/2 Ml Inj IV Q8H PRN Nausea And Vomiting Simple Syrup 15 ml 02/01/21 07:14 02/05/21 18:50 Simple Syrup 15 Ml FEEDTUBE 15 ml PRN PRN Administration Hypoglycemia Simple Syrup 30 ml 02/01/21 07:14 02/05/21 17:07 Simple Syrup 15 Ml FEEDTUBE 30 ml PRN PRN Administration Hypoglycemia Sodium Bicarbonate 325 mg 02/01/21 07:14 02/05/21 10:07 Sodium Bicarbonate 325 Mg Tab FEEDTUBE 325 mg PRN PRN Administration For Clogged Feeding Tube Sodium Chloride 10 ml 02/01/21 10:00 02/06/21 21:58 Sodium Chloride 0.9% 10 Ml Flush Syringe IV 10 ml BID SHAHLA Administration Sodium Chloride 10 ml 01/31/21 23:21 Sodium Chloride 0.9% 10 Ml Flush Syringe IV PRN PRN LINE FLUSH
[2021-02-07] MEDS: APIXABAN 2.5 MG TAB PO SCH (11:19)
[2021-02-07] MEDS: CITALOPRAM 20 MG TAB PO SCH (11:19)
[2021-02-07] MEDS: MIDODRINE 5 MG TAB PO SCH ×3 (11:19→17:30)
[2021-02-07] MEDS: ASCORBIC ACID 500 MG TAB PO SCH (11:19)
[2021-02-07] MEDS: FAMOTIDINE 10 MG TAB PO SCH (11:19)
--- NOTE | 2021-02-07 13:02 | Discharge Summary ---
Providers - Providers Date of Admission: 01/31/21 11:37 Attending physician: EVAN CHAVEZ 01/31/21 23:21 Consult to Physician [CONS] Routine Comment: Consulting Provider: ANA ELAINE Physician Instructions: Reason For Exam: Sepsis 02/01/21 07:15 Consult to Dietitian/Nutrition [CONS] Routine Physician Instructions: Assess nutrtn needs, initiate, modify, manage TF Reason For Exam: PEG tube feeding Reason for Consult: Write/Manage Tube Feeding Reason for Consult: Write/Manage Tube Feeding 02/01/21 07:18 Consult to Wound/ET Nurse [CONS] Routine Reason For Exam: Redness and crustiness on vaginal area. 02/01/21 07:19 Consult to Dietitian/Nutrition [CONS] Routine Physician Instructions: Reason For Exam: Reason for Consult: Write/Manage Tube Feeding 02/01/21 09:51 Consult to Physician [CONS] Routine Comment: Consulting Provider: ABBEY JULIO Physician Instructions: Reason For Exam: RACH 02/05/21 15:31 Midline [Consult to PICC Line RN] [CONS] Routine Reason For Exam: Iv access Type Line:: Midline Primary care physician: HOME APPLIANCE TECH Hospitalization Reason for admission: Sepsis /hypotension /metabolic encephalopathy Condition: Poor Pertinent studies: CT head without contrast; no acute abnormality noted CT ches;t moderate bilateral patchy airspace with more consolidation in the low er lobes multifocal pneumonia versus inflammatory process versus CT abdomen pelvis; no acute process identified within the abdominal pelvis Hospital course: 55-year-old female patient with significant history of hypertension dysphagia requiring PEG tube insulin-dependent diabetes was sent to the emergency room from longterm with high blood glucose levels and low oxygen levels , initial work-up in the ED findings consistent with sepsis with hypotension acute metabolic encephalopathy, ID evaluated and recommended IV cefepime and vancomycin to treat her bilateral pneumonia ,cultures negative to date, patient symptoms significantly improved Patient also has acute kidney injury, evaluated by brand director, renal ultrasound no evidence of obstruction, medications optimized, patient had worsening renal function Advised medical management, patient's family opted hospice care Patient had a history of dysphagia status post PEG placement receiving PEG feeds per protocol, with aspiration record precautions Patient symptoms slowly but gradually improved, today patient is comfortable afebrile no new complaints Started on midodrine for hypotension, minimal improvement. Family aware of patient's medical condition and poor prognosis Patient is DNR status, cleared by the consultants for discharge and follow-up with nephrology per schedule Patient is critically ill with very poor and guarded prognosis. Rest of the management per hospice medical office asstguest services director assisted with discharge and transfer to SNF with hospice Discharge diagnosis: --Covid test negative -- Sepsis with hypotension Current Visit: Yes Status: Acute Secondary to bilateral pneumonia and severe gingivitis Continue IV fluids, supportive care, and IV antibiotics-cefepime and vancomycin per ID Patient is DNR and comfort care --Bilateral pneumonia; IV antibiotics-cefepime and vancomycin per ID Patient is DNR and comfort care. --Chronic gingivitis; Very poor oral hygiene Antibiotics, oral care Patient needs to see dentist upon discharge Dental services not available in the hospital --Acute toxic metabolic encephalopathy Current Visit: No Status: Acute Secondary to sepsis, severe malnutrition, underlying disease process. Continue supportive care, treat the underlying cause --Severe malnutrition; Nutrition supplements, nutrition consult, supportive care. Treat the underlying cause --History of dysphagia; status post PEG PEG tube feeding, PEG care -- Acute hypoxemic respiratory failure Current Visit: Yes Status: Acute Requiring supplemental oxygen Due to bilateral pneumonia, Sepsis Home O2 evaluation prior to discharge. --Diabetes mellitus; Accu-Chek sliding scale coverage ADA diet and long-acting insulin as needed --UTI/pyuria Continue empiric antibiotics. Follow cultures. Plenty of fluids IV and oral --DVT prophylaxis Current Visit: Yes Status: Acute On heparin and GI prophylaxis --DNR status; --Discharge planning issues Current Visit: Yes Status: Acute Plan to address problem: Patient is DNR and family wants only comfort measures and IV antibiotics No aggressive measures like pressors and intubation and CPR We will closely monitor the patient and adjust the management as noted DC and transfer to SNF with hospice Disposition: DC/[place]-03 SNF [facility] C[facility] Final Discharge Diagnosis (Prints w/discharge instructions): Sepsis secondary to pneumonia/resolved,. Chronic gingivitis/advised to see dentist. History of dysphagia. History of PEG in place. Type 2 diabetes mellitus. Urinary tract infection. Acute hypoxic respiratory failure. Severe malnutrition. Toxic metabolic encephalopathy. Hypotension Time spent for discharge: 35 min Core Measure Documentation - Palliative Care Palliative Care/ Comfort Measures: Not Applicable - Core Measures Any of the following diagnoses?: none Exam - Constitutional Vitals: Temp Pulse Resp BP Pulse Ox 98.7 F 89 20 91/48 86 02/06/21 22:04 02/06/21 22:04 02/06/21 22:04 02/07/21 05:34 02/06/21 22:04 General appearance: Present: no acute distress, cachectic, disheveled - EENT Eyes: Present: PERRL, EOM intact ENT: other (Push oral hygiene) - Neck Neck: Present: supple, normal ROM - Respiratory Respiratory effort: normal Respiratory: bilateral: diminished, rhonchi, negative: rales, wheezing - Cardiovascular Rhythm: regular Heart Sounds: Present: S1 & S2 - Extremities Extremities: no ischemia, No edema, abnormal - Abdominal General gastrointestinal: Present: soft, non-tender, non-distended, normal bowel sounds, other (PEG tube in place) - Integumentary Integumentary: Present: clear, warm - Musculoskeletal Musculoskeletal: generalized weakness - Psychiatric Psychiatric: other (Noncommunicative) - Neurologic Neurologic: other (Noncommunicative) Plan Activity: advance as tolerated, fall precautions Diet: other (Tube feeding per protocol) Special Instructions: physical therapy Additional Instructions: Fall precautions. Aspiration precautions. Continue PEG feeds and PEG tube care. Rest of the management per medical instrument technician Follow up with: PRIMARY MD LINH [Primary Care Provider] - 3-5 Days ABBEY JULIO MD [Staff Physician] - 14 Days Prescriptions: Midodrine [Proamatine] 5 mg PO TID@0800,1200,1600 #60 tablet
[2021-02-07 16:01] VITALS: BP 85/45
[2021-02-07] MEDS: INSULIN GLARGINE 100 UNITS/ML SUB-Q SCH (17:31)
== END 2021-02-07 19:25 | DRG 871 ==
LOC: ED 08:19 → 3A 11:37
PROVIDERS: ADMIT Internal Medicine; ATTEND Internal Medicine
DX: A41.9 Sepsis, unspecified organism (principal); J18.9 Pneumonia, unspecified organism; J96.01 Acute respiratory failure with hypoxia; G92 Toxic encephalopathy; N17.0 Acute kidney failure with tubular necrosis; R65.21 Severe sepsis with septic shock; E43 Unspecified severe protein-calorie malnutrition; I13.0 Hypertensive heart and chronic kidney disease with heart failure and stage 1 through stage 4 chronic kidney disease, or unspecified chronic kidney disease; N39.0 Urinary tract infection, site not specified; Z68.1 Body mass index [BMI] 19.9 or less, adult; N20.0 Calculus of kidney; N18.9 Chronic kidney disease, unspecified; F01.50 Vascular dementia, unspecified severity, without behavioral disturbance, psychotic disturbance, mood disturbance, and anxiety; R13.10 Dysphagia, unspecified; E11.22 Type 2 diabetes mellitus with diabetic chronic kidney disease; F41.9 Anxiety disorder, unspecified; Z86.16 Personal history of COVID-19; Z79.4 Long term (current) use of insulin; E87.6 Hypokalemia; D64.9 Anemia, unspecified; K05.10 Chronic gingivitis, plaque induced; D69.6 Thrombocytopenia, unspecified; Z66 Do not resuscitate
CPT/HCPCS: 36415; 70450; 71045; 71250; 74176; 80048; 80053; 81001; 82140; 82728; 82947; 82962; 83036; 83615; 83690; 83735; 83880; 84100; 84145; 84484; 85007; 85025; 85027; 85379; 85610; 85652; 85730; 86140; 87040; 87086; 96374; G0378; J0692; J1170; J1815; J2270; J3370; J3480; J7030; J7040; J7050; P9047; U0003